=== PATIENT | male | born 1955 | race Caucasian/White ===

== ENCOUNTER 2016-12-19 21:27 | Inpatient (IN) | payer OTHER ==
[~2016-12-19] VITALS: Ht 182.9 cm; Wt 60.2 kg
[2016-12-19] MEDS ORDERED: MONT1TAB5 PO (21:38)
[2016-12-19] MEDS ORDERED: IPRASOL4 INH (21:38)
[2016-12-19] MEDS ORDERED: SPIR25TA PO (21:38)
[2016-12-19] MEDS ORDERED: CLR10 PO (21:38)
[2016-12-19] MEDS ORDERED: ADVIN50050 PO (21:38)
[2016-12-19] MEDS ORDERED: VNTHFA/IN INH (21:38)
[2016-12-19] MEDS ORDERED: METHYLPREDNISOLONE 125 MG VIAL IV STA (21:41)
[2016-12-19] MEDS ORDERED: SODIUM CHLORIDE 0.9% 1000ML 1,000 ML IV STA ×2 (21:41)
[2016-12-19] MEDS ORDERED: METHYLPREDNISOLONE 125 MG VIAL ONE (21:42)
[2016-12-19] MEDS ORDERED: ALBUT/IPRATROP 3MG/0.5MG NEB 3 ML VIAL INH ONE (21:45)
[2016-12-19 22:09] LABS: BASO % 0.1 %; BASO ABS # 0.01 K/uL (0-0.2); COMPLETE YES; EOS % 0.6 %; HEMATOCRIT 45.2 % (42-52); IG% 0.3 %; LYMPH % 5.6 %; LYMPH ABS # 0.83 K/uL (1.2-3.4); MEAN CELL VOLUME 95.2 fL (80-100); MEAN CORPUSCULAR HEMOGLOBIN 33.1 pg (25-34); MEAN CORPUSCULAR HGB CONC 34.7 g/dl (32-36); MEAN PLATELET VOLUME 9.3 fL (7.4-10.4); MONO % 5.6 %; NEUT % 87.8 %; PLATELET COUNT 160 K/uL (130-400); RED BLOOD COUNT 4.75 M/uL (4.7-6.1); WHITE BLOOD COUNT 14.91 K/uL (4.8-10.8)
[2016-12-19 22:18] LABS: PARTIAL THROMBOPLASTIN RATIO 1.2; PROTHROMBIN TIME (PATIENT) 10.7 SECONDS (9.0-12.0)
--- NOTE | 2016-12-19 22:24 | DIAGNOSTIC IMAGING REPORT ---
CHEST ONE VIEW PORTABLE HISTORY: 61 years-old Male Sepsis COMPARISON: None available TECHNIQUE: Portable upright AP view of the chest FINDINGS: Cardiac silhouette is within normal limits. There is no pneumothorax or large pleural effusion. There is blunting of the costophrenic angles likely secondary to scarring and hyperinflation. Reticular opacities are present within the medial apical lungs compatible with pleural-parenchymal scarring and background emphysema. There is no focal airspace consolidation or overt pulmonary edema. The bones and upper abdomen appear unremarkable. IMPRESSION: 1. No acute cardiopulmonary process. 2. Emphysema with biapical pleural-parenchymal scarring. The above report was generated using voice recognition software. It may contain grammatical, syntax or spelling errors. Electronically signed by: Jason Marcus M.D. 12/19/2016 10:22 PM Dictated Date/Time: 12/19/2016 10:21 PM
[2016-12-19 22:27] LABS: ALT/SGPT 26 U/L (12-78); BLOOD UREA NITROGEN 14 mg/dl (7-18); BUN/CREATININE RATIO 21.5 (10-20); CALCIUM 8.6 mg/dl (8.5-10.1); CARBON DIOXIDE 28 mmol/L (21-32); CHLORIDE 102 mmol/L (98-107); CREATININE 0.67 mg/dl (0.60-1.40); GLUCOSE 107 mg/dl (70-99); MAGNESIUM 1.9 mg/dl (1.8-2.4); SODIUM 136 mmol/L (136-145)
[2016-12-19 22:32] LABS: ALB/GLOB RATIO 1.1 (0.9-2); ALKALINE PHOSPHATASE 76 U/L (45-117); AST/SGOT 24 U/L (15-37)
[2016-12-19 22:57] VITALS: PULSE 121; O2SAT 98
--- NOTE | 2016-12-19 23:10 | History and Physical ---
History & Physical Date & Time of Service: Dec 19, 2016 at 23:10 . Chief Complaint: cough, shortness of breath . Primary Care Physician: [facility] . History of Present Illness Source: patient, hospital records 61 YO male, inmate [facility]. History of severe COPD and other problems noted below. Developed sinus drainage and a cough a few days ago. Cough productive of white sputum. Possible low grade temp. Started on azithromycin. Received nebulizer treatments. Progressive wheezing and dyspnea. Very SOB today with document O2 sat of 76% on RA. EMS summoned. Transferred to ED. Received O2, DuoNeb, Solu-Medrol. Feeling better by time of my assessment. . Past Medical/Surgical History Chronic Medical Problems: (1) Cirrhosis of liver Status: Chronic (2) COPD (chronic obstructive pulmonary disease) Status: Chronic (3) GERD (gastroesophageal reflux disease) Status: Chronic (4) History of hepatitis B Status: Chronic (5) Hypertension Status: Chronic (6) Tobacco abuse Status: Chronic . Family History FATHER Heart disease Kidney disease MOTHER Heart disease Diabetes mellitus BROTHER Heart disease Social History Smoking Status: Current Every Day Smoker Alcohol Use: none Allergies Coded Allergies: No Known Allergies (Unverified , 12/19/16) Home Medications Scheduled Fluticasone Prop/Salmeterol (Advair Diskus 500-50 Mcg/Dose), 1 PUFF PO DAILY Ipratropium-Albuterol (Duoneb), 1 TREATMENT INH Q4H Loratadine (Claritin), 10 MG PO DAILY Montelukast Sodium (Montelukast Sodium), 10 MG PO DAILY Spironolactone (Aldactone), 25 MG PO DAILY Scheduled PRN Albuterol Hfa (Ventolin Hfa), 2-4 PUFFS INH Q6H PRN for Shortness of Breath Review of Systems Constitutional: + fever, No weight loss Eyes: No worsening of vision, No diplopia ENT: + nasal symptoms, + sore throat Respiratory: + problem reported (as noted above in HPI) Cardiovascular: No chest pain, No edema, No palpitations Abdomen: No pain, No nausea, No vomiting, No diarrhea, No GI bleeding Musculoskeletal: + joint pain, No muscle pain Genitourinary - Male: No hematuria, No dysuria Neurologic: + problem reported (frontal headache) Endocrine: No excessive thirst, No excessive urination Hematologic / Lymphatic: + abnormal bleeding/bruising, No swollen lymph nodes Integumentary: No rash, No new/changing skin lesions Physical Exam Vital Signs Date Time Temp Pulse Resp B/P (MAP) Pulse Ox O2 Delivery O2 Flow Rate FiO2 12/19/16 22:57 121 18 98 Nasal Cannula 4.0 12/19/16 22:47 123 30 110/72 96 12/19/16 21:49 87 Room Air 12/19/16 21:49 87 Room Air 12/19/16 21:49 37.4 123 20 101/66 87 Room Air 12/19/16 21:46 126 12/19/16 21:40 97 Nasal Cannula 4.0 General Appearance: + mild distress Head: normocephalic, atraumatic Eyes: normal inspection, PERRL, EOMI, sclerae normal ENT: hearing grossly normal, pharynx normal Neck: supple, no adenopathy, thyroid normal, trachea midline Respiratory/Chest: + accessory muscle use, + wheezing (diffuse) Cardiovascular: regular rate, rhythm, no edema, no gallop, no JVD, no murmur, normal peripheral pulses, + tachycardia Abdomen/GI: normal bowel sounds, non tender, soft, no organomegaly, no pulsatile mass Extremities/Musculoskelatal: no calf tenderness, no pedal edema 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4-10.4 fL Neutrophils (%) (Auto) 87.8 % Lymphocytes (%) (Auto) 5.6 % Monocytes (%) (Auto) 5.6 % Eosinophils (%) (Auto) 0.6 % Basophils (%) (Auto) 0.1 % Neutrophils # (Auto) 13.10 1.4-6.5 K/uL Lymphocytes # (Auto) 0.83 1.2-3.4 K/uL Monocytes # (Auto) 0.84 0.11-0.59 K/uL Eosinophils # (Auto) 0.09 0-0.5 K/uL Basophils # (Auto) 0.01 0-0.2 K/uL RDW Standard Deviation 43.3 36.4-46.3 fL RDW Coefficient of Variation 12.4 11.5-14.5 % Immature Granulocyte % (Auto) 0.3 % Immature Granulocyte # (Auto) 0.04 0.00-0.02 K/uL Prothrombin Time 10.7 9.0-12.0 SECONDS Prothromb Time International Ratio 1.0 0.9-1.1 Activated Partial Thromboplast Time 32.0 21.0-31.0 SECONDS Partial Thromboplastin Ratio 1.2 Sodium Level 136 136-145 mmol/L Potassium Level 4.0 3.5-5.1 mmol/L Chloride Level 102 98-107 mmol/L Carbon Dioxide Level 28 21-32 mmol/L Anion Gap 6.0 3-11 mmol/L Blood Urea Nitrogen 14 7-18 mg/dl Creatinine 0.67 0.60-1.40 mg/dl Est Creatinine Clear Calc Drug Dose 102.8 ml/min Estimated GFR () 119.4 Estimated GFR (Non- 103.0 BUN/Creatinine Ratio 21.5 10-20 Random Glucose 107 70-99 mg/dl Calcium Level 8.6 8.5-10.1 mg/dl Magnesium Level 1.9 1.8-2.4 mg/dl Total Bilirubin 0.7 0.2-1 mg/dl Aspartate Amino Transf (AST/SGOT) 24 15-37 U/L Alanine Aminotransferase (ALT/SGPT) 26 12-78 U/L Alkaline Phosphatase 76 45-117 U/L Troponin I < 0.015 0-0.045 ng/ml Total Protein 7.3 6.4-8.2 gm/dl Albumin 3.8 3.4-5.0 gm/dl Globulin 3.5 2.5-4.0 gm/dl Albumin/Globulin Ratio 1.1 0.9-2 Bedside Lactic Acid Venous 0.68 0.90-1.70 mmol/L Bedside Troponin I < 0.030 0-0.045 ng/ml Microbiology Results 12/19/16 Blood Culture, Received Pending 12/19/16 Blood Culture, Carson Batch Pending Diagnostic Radiology Chest x-ray reviewed by the undersigned. Formal report per Radiology: CHEST ONE VIEW PORTABLE HISTORY: 61 years-old Male Sepsis COMPARISON: None available TECHNIQUE: Portable upright AP view of the chest FINDINGS: Cardiac silhouette is within normal limits. There is no pneumothorax or large pleural effusion. There is blunting of the costophrenic angles likely secondary to scarring and hyperinflation. Reticular opacities are present within the medial apical lungs compatible with pleural-parenchymal scarring and background emphysema. There is no focal airspace consolidation or overt pulmonary edema. The bones and upper abdomen appear unremarkable. IMPRESSION: 1. No acute cardiopulmonary process. 2. Emphysema with biapical pleural-parenchymal scarring. The above report was generated using voice recognition software. It may contain grammatical, syntax or spelling errors. Electronically signed by: Jason Marcus M.D. 12/19/2016 10:22 PM . EKG EKG performed at 21:[address] at 130 / minute, poor R- wave progression, NSSTTWA's. . Impression Assessment and Plan ACUTE HYPOXIC RESPIRATORY FAILURE Documented O2 sat of 76% on RA at [facility]. Tachypneic, tachycardic, using accessory muscles of respiration. Due to exacerbation of COPD. Supplemental O2 as needed. Consider BiPAP if condition worsens. EXACERBATION OF COPD No infiltrates on chest x-ray. Rx with steroids, nebs, levofloxacin. TACHYCARDIA Sinus tachycardia due to respiratory illness. HYPERTENSION Follow ant titrate Rx. CIRRHOSIS Details not available. History of alcohol use and hep B. TOBACCO USE Smoking cessation counseling. VTE PROPHYLAXIS SQ enoxaparin. RESUSCITATION STATUS Full code. DISPOSITION Admit to Telemetry Unit. Expected return to [facility]. . VTE Prophylaxis Given or contraindicated: Enoxaparin (Lovenox)SQ
[2016-12-19] MEDS ORDERED: ONDANSETRON INJ 2 MG/ML 2 ML VIAL IV PRN (23:15)
[2016-12-19] MEDS ORDERED: ACETAMINOPHEN 325 MG TAB PO PRN (23:15)
[2016-12-19 23:44] LABS: VEN BLD GAS O2 SATURATION 61.4 %; VEN BLOOD GAS BASE EXCESS 1.3 mmol/L; VENOUS BLOOD GAS PCO2 59 mmHg (38.0-50.0); VENOUS BLOOD GAS PO2 31 mmHg
[2016-12-20] VITALS (12 sets, daily range): BP systolic 99–152; BP diastolic 66–89; PULSE 90–124; TEMP 36.3–37.3; O2SAT 90–96; Ht 182.9 cm; Wt 60.2 kg
[2016-12-20] MEDS ORDERED: ALBUTEROL HFA 8 GM INHALER INH PRN (01:00)
[2016-12-20] MEDS ORDERED: LEVALBUTEROL 0.63MG/3 ML NEB INH PRN (01:00)
[2016-12-20] MEDS: LEVOFLOXACIN / D5W 750 MG in PREMIXED IN D5W 150 ML IV SCH ×2 (01:44→22:05)
--- NOTE | 2016-12-20 04:49 | EMERGENCY ROOM VISIT NOTE ---
History First contact with patient: 21:33 Chief Complaint: SHORTNESS OF BREATH Stated Complaint: SOB Nursing Triage Summary: Patient presents from [facility] with c/o SOB, chills, and productive cough for the last several days Used inhalers and duoneb prior to calling EMS History of Present Illness The patient is a 61 year old male who presents to the Emergency Room with complaints of increasing shortness of breath with productive cough for the past 3 days. Patient has COPD. The residential gave him nebulizers no improvement. He had antibiotics last week. He was a subjective fever and chills. Patient denies chest pain, abdominal pain, vomiting, diarrhea, leg pain or swelling. No history of heart disease or PEs or DVTs in the past. Patient continues to smoke. Review of Systems See HPI for pertinent positives & negatives. A total of 10 systems reviewed and were otherwise negative. Past Medical/Surgical History Medical Problems: (1) Acute respiratory failure with hypoxia COPD, hypertension, cirrhosis, emphysema, GERD, nicotine dependence Social History Smoking Status: Current Every Day Smoker Current/Historical Medications Scheduled Fluticasone Prop/Salmeterol (Advair Diskus 500-50 Mcg/Dose), 1 PUFF PO DAILY Ipratropium-Albuterol (Duoneb), 1 TREATMENT INH Q4H Loratadine (Claritin), 10 MG PO DAILY Montelukast Sodium (Montelukast Sodium), 10 MG PO DAILY Spironolactone (Aldactone), 25 MG PO DAILY Scheduled PRN Albuterol Hfa (Ventolin Hfa), 2-4 PUFFS INH Q6H PRN for Shortness of Breath Physical Exam Vital Signs Date Time Temp Pulse Resp B/P (MAP) Pulse Ox O2 Delivery O2 Flow Rate FiO2 12/19/16 22:57 121 18 98 Nasal Cannula 4.0 12/19/16 22:47 123 30 110/72 96 12/19/16 21:49 87 Room Air 12/19/16 21:49 87 Room Air 12/19/16 21:49 37.4 123 20 101/66 87 Room Air 12/19/16 21:46 126 12/19/16 21:40 97 Nasal Cannula 4.0 Physical Exam VITALS: Vitals are noted on the nurse's note and reviewed by myself. Vital signs hypoxic and tachycardic GENERAL: White male struggling to breathe unable to speak in full sentences SKIN: The skin was without rashes, erythema, edema, or bruising. There is no tenting of the skin. Capillary reflex less than 2 seconds. HEAD: Normocephalic atraumatic. EARS: External auditory canals clear, tympanic membranes pearly boo without erythema or effusion bilaterally. EYES: Pupils equal round and reactive to light and accommodation. Conjunctivae without injection, sclerae without icterus. Extraocular movements intact. NOSE: Patent, turbinates without inflammation or discharge. No sinus tenderness. MOUTH: Mucous membranes mildly dry. Pharynx without erythema or exudate. Uvula midline. Airway patent. Tongue does not deviate. NECK: Supple without nuchal rigidity. No lymphadenopathy. No thyromegaly. Cervical spine is nontender. No JVD. HEART: Regular rate and rhythm, tachycardic LUNGS: Diffuse joint and end expiratory wheezes. No dullness to percussion. No retractions or accessory muscle use. ABDOMEN: Positive bowel sounds x 4. Normal tympanic percussion. Soft, nontender, without masses or organomegaly. Mckeon sign negative. No guarding or rebound tenderness. MUSCULOSKELETAL: No muscle atrophy, erythema, or edema noted. NEURO: Patient was alert and oriented to person place and time. Normal sensation to light and sharp touch. No focal neurological deficits. Medical Decision & Procedures Laboratory Results 12/19/16 21:50 Red Blood Count 4.75, Mean Corpuscular Volume 95.2, Mean Corpuscular Hemoglobin 33.1, Mean Corpuscular Hemoglobin Concent 34.7, Mean Platelet Volume 9.3, Neutrophils (%) (Auto) 87.8, Lymphocytes (%) (Auto) 5.6, Monocytes (%) (Auto) 5.6, Eosinophils (%) (Auto) 0.6, Basophils (%) (Auto) 0.1, Neutrophils # (Auto) 13.10, Lymphocytes # (Auto) 0.83, Monocytes # (Auto) 0.84, Eosinophils # (Auto) 0.09, Basophils # (Auto) 0.01 12/19/16 21:50 Test 12/19/16 21:50 12/19/16 21:53 12/19/16 21:56 White Blood Count 14.91 K/uL (4.8-10.8) Red Blood Count 4.75 M/uL (4.7-6.1) Hemoglobin 15.7 g/dL (14.0-18.0) Hematocrit 45.2 % (42-52) Mean Corpuscular Volume 95.2 fL (80-100) Mean Corpuscular Hemoglobin 33.1 pg (25-34) Mean Corpuscular Hemoglobin Concent 34.7 g/dl (32-36) Platelet Count 160 K/uL (130-400) Mean Platelet Volume 9.3 fL (7.4-10.4) Neutrophils (%) (Auto) 87.8 % Lymphocytes (%) (Auto) 5.6 % Monocytes (%) (Auto) 5.6 % Eosinophils (%) (Auto) 0.6 % Basophils (%) (Auto) 0.1 % Neutrophils # (Auto) 13.10 K/uL (1.4-6.5) Lymphocytes # (Auto) 0.83 K/uL (1.2-3.4) Monocytes # (Auto) 0.84 K/uL (0.11-0.59) Eosinophils # (Auto) 0.09 K/uL (0-0.5) Basophils # (Auto) 0.01 K/uL (0-0.2) RDW Standard Deviation 43.3 fL (36.4-46.3) RDW Coefficient of Variation 12.4 % (11.5-14.5) Immature Granulocyte % (Auto) 0.3 % Immature Granulocyte # (Auto) 0.04 K/uL (0.00-0.02) Prothrombin Time 10.7 SECONDS (9.0-12.0) Prothromb Time International Ratio 1.0 (0.9-1.1) Activated Partial Thromboplast Time 32.0 SECONDS (21.0-31.0) Partial Thromboplastin Ratio 1.2 Anion Gap 6.0 mmol/L (3-11) Est Creatinine Clear Calc Drug Dose 102.8 ml/min Estimated GFR () 119.4 Estimated GFR (Non- 103.0 BUN/Creatinine Ratio 21.5 (10-20) Calcium Level 8.6 mg/dl (8.5-10.1) Magnesium Level 1.9 mg/dl (1.8-2.4) Total Bilirubin 0.7 mg/dl (0.2-1) Aspartate Amino Transf (AST/SGOT) 24 U/L (15-37) Alanine Aminotransferase (ALT/SGPT) 26 U/L (12-78) Alkaline Phosphatase 76 U/L (45-117) Troponin I < 0.015 ng/ml (0-0.045) Total Protein 7.3 gm/dl (6.4-8.2) Albumin 3.8 gm/dl (3.4-5.0) Globulin 3.5 gm/dl (2.5-4.0) Albumin/Globulin Ratio 1.1 (0.9-2) Bedside Lactic Acid Venous 0.68 mmol/L (0.90-1.70) Bedside Troponin I < 0.030 ng/ml (0-0.045) Medications Administered Medications (Trade) Dose Ordered Sig/Migue Route Start Time Stop Time Status Last Admin Dose Admin Sodium Chloride 1,000 ml @ 999 mls/hr Q1H1M STAT IV 12/19/16 21:41 12/19/16 22:41 DC 12/19/16 21:47 999 MLS/HR Sodium Chloride 1,000 ml @ 125 mls/hr Q8H STAT IV 12/19/16 21:41 12/20/16 05:40 12/19/16 22:47 125 MLS/HR Methylprednisolone Sodium Succinate (Solu-Medrol IV) 125 mg NOW STAT IV 12/19/16 21:41 12/19/16 21:44 DC 12/19/16 21:47 125 MG Albuterol/ Ipratropium (Duoneb) 12 ml ONE ONCE INH 12/19/16 21:45 12/19/16 21:46 DC 12/19/16 21:55 12 ML ED Course Prior records/ancillary studies reviewed. Triage Nursing notes reviewed. Additional history obtained from the family. The patient's history was concerning for respiratory difficulties. Differential diagnosis: Etiologies such as infections, reactive airway disease, pneumonia, pneumothorax , COPD, CHF, cardiac ischemia, pulmonary embolism, musculoskeletal, gastrointestinal, as well as others were entertained. Physical examination: As above. Patient is struggling to breathe. ER treatment provided: Nebulizer, slight manager clinical research, IV fluids On reassessment the patient felt better. Diagnostic interpretation by me: The electrocardiogram was normal sinus, normal intervals, right axis deviation, no acute ST-T wave changes, rate of 129. Impression sinus tachycardia interpreted by myself. The labs revealed leukocytosis. Negative lactic acid. Negative troponin Imaging studies: Chest x-ray as above. HISTORY: 61 years-old Male Sepsis COMPARISON: None available TECHNIQUE: Portable upright AP view of the chest FINDINGS: Cardiac silhouette is within normal limits. There is no pneumothorax or large pleural effusion. There is blunting of the costophrenic angles likely secondary to scarring and hyperinflation. Reticular opacities are present within the medial apical lungs compatible with pleural-parenchymal scarring and background emphysema. There is no focal airspace consolidation or overt pulmonary edema. The bones and upper abdomen appear unremarkable. IMPRESSION: 1. No acute cardiopulmonary process. 2. Emphysema with biapical pleural-parenchymal scarring. The above report was generated using voice recognition software. It may contain grammatical, syntax or spelling errors. Consultation: A consultation was placed with Dr. Stein, hospitalist. The case was discussed and diagnostics were reviewed. The patient was evaluated in the ER for further treatment. Patient states he would like everything done for him tonight. Patient status is a full code. This appears to be consistent with COPD exacerbation with hypoxemia. Patient will be evaluated by medicine for possible admission. He did have some improvement after being medicated as above. His O2 sats below. Initially he was unable to speak in full sentences but this is now improved.. By the evaluation outlined above emergent etiologies such as CHF, cardiac ischemia, pulmonary embolism, reactive airway disease, pneumonia, pneumothorax, musculoskeletal, serious bacterial infections, as well as others were deemed relatively unlikely. The pt informed about the findings as listed above. All questions were answered and pleased with the treatment. Case reviewed with my attending. Medical Decision As above Medication Reconcilliation Current Medication List: was personally reviewed by me Blood Pressure Screening Patient's blood pressure: Low blood pressure Impression Primary Impression: COPD exacerbation Additional Impression: Hypoxemia Departure Information Dispostion Being Evaluated By Hospitalist Condition FAIR Patient Instructions My [facility] Problem Qualifiers
[2016-12-20] MEDS: LEVALBUTEROL 1.25MG/0.5ML NEB INH SCH ×4 (07:22→19:11)
[2016-12-20] MEDS: IPRATROPIUM BROMIDE NEB SOLN 0.02% 2.5 ML VIAL INH SCH ×4 (07:22→19:12)
[2016-12-20] MEDS: LORATADINE 10 MG TAB PO SCH (07:48)
[2016-12-20] MEDS: ENOXAPARIN 40 MG/0.4 ML SYR SC SCH (07:49)
[2016-12-20] MEDS ORDERED: FLUTICASONE/SALMETEROL (ADVAIR) 500/50 INH 14 PUFF INH SCH (09:00)
[2016-12-20] MEDS ORDERED: SPIRONOLACTONE 25 MG TAB PO SCH (09:00)
[2016-12-20 10:10] LABS: ARTERIAL BLD GAS O2 SATURATION 94.6 % (90-95); ARTERIAL BLOOD GAS BASE EXCESS 2.2 mEq/L (-9-1.8); ARTERIAL BLOOD GAS HCO3 30 mmol/L (19-24); ARTERIAL BLOOD GAS PO2 77 mm/Hg (80-95); ARTERIAL BLOOD GAS pH 7.32 (7.35-7.45)
[2016-12-20 10:12] LABS: ALLEN TEST POS (POS); O2 ADMINISTRATION 5.5 L
[2016-12-20 11:16] LABS: BUN/CREATININE RATIO 13.7 (10-20); CALCIUM 9.3 mg/dl (8.5-10.1); CREATININE 0.76 mg/dl (0.60-1.40); POTASSIUM 5.3 mmol/L (3.5-5.1)
[2016-12-20 11:22] LABS: HEMATOCRIT 46.1 % (42-52); MEAN CELL VOLUME 95.8 fL (80-100); MEAN CORPUSCULAR HEMOGLOBIN 33.3 pg (25-34); MEAN CORPUSCULAR HGB CONC 34.7 g/dl (32-36); MEAN PLATELET VOLUME 9.1 fL (7.4-10.4); PLATELET COUNT 172 K/uL (130-400); RED BLOOD COUNT 4.81 M/uL (4.7-6.1); WHITE BLOOD COUNT 7.67 K/uL (4.8-10.8)
[2016-12-20] MEDS: METHYLPREDNISOLONE IV 40 MG in SYRINGE 0 ML IV SCH ×2 (12:00→18:31)
--- NOTE | 2016-12-20 16:20 | Progress Note ---
Medicine Progress Note Date & Time of Visit: Dec 20, 2016 at 16:15. (Esme Zuñiga, P.A.-C.) Subjective Patient is sitting up and leaning forward during exam for more ease with respiration. Continues to have a cough with productive white sputum, but states that it is the same as yesterday. Satting at 95% on 6L NC O2. Is still feeling SOB, especially when he is leaning back or lying down. States that nebulizer treatments help with wheezing. Denies any fever, chills, lightheadedness, palpitations, CP, abd pain, n/v. (Esme Zuñiga, P.A.-C.) Objective Last 8 Hrs Date Time Temp Pulse Resp B/P (MAP) Pulse Ox O2 Delivery O2 Flow Rate FiO2 12/20/16 15:16 36.7 96 24 145/88 (107) 90 Nasal Cannula 4.0 12/20/16 12:00 Nasal Cannula 4.0 12/20/16 11:17 99 18 96 Nasal Cannula 4.0 Physical Exam: General Appearance: WD/WN, mild dyspneic distress, worsened during conversation. Head: normocephalic, atraumatic Eyes: normal inspection, PERRL ENT: hearing grossly normal, pharynx normal Neck: supple, no JVD, no adenopathy Respiratory/Chest: Diffuse wheezing on auscultation. + accessory muscle use Cardiovascular: regular rate, rhythm, no murmur, normal peripheral pulses Abdomen/GI: normal bowel sounds, soft, non-tender to palpation Extremities/Musculoskelatal: normal inspection, no calf tenderness, normal capillary refill, no pedal edema Neurologic/Psych: alert & oriented x 3 Skin: normal color, warm/dry Laboratory Results: Last 24 Hours Test 12/19/16 21:50 12/19/16 21:53 12/19/16 21:56 12/19/16 23:20 White Blood Count 14.91 K/uL Red Blood Count 4.75 M/uL Hemoglobin 15.7 g/dL Hematocrit 45.2 % Mean Corpuscular Volume 95.2 fL Mean Corpuscular Hemoglobin 33.1 pg Mean Corpuscular Hemoglobin Concent 34.7 g/dl Platelet Count 160 K/uL Mean Platelet Volume 9.3 fL Neutrophils (%) (Auto) 87.8 % Lymphocytes (%) (Auto) 5.6 % Monocytes (%) (Auto) 5.6 % Eosinophils (%) (Auto) 0.6 % Basophils (%) (Auto) 0.1 % Neutrophils # (Auto) 13.10 K/uL Lymphocytes # (Auto) 0.83 K/uL Monocytes # (Auto) 0.84 K/uL Eosinophils # (Auto) 0.09 K/uL Basophils # (Auto) 0.01 K/uL RDW Standard Deviation 43.3 fL RDW Coefficient of Variation 12.4 % Immature Granulocyte % (Auto) 0.3 % Immature Granulocyte # (Auto) 0.04 K/uL Prothrombin Time 10.7 SECONDS Prothromb Time International Ratio 1.0 Activated Partial Thromboplast Time 32.0 SECONDS Partial Thromboplastin Ratio 1.2 Sodium Level 136 mmol/L Potassium Level 4.0 mmol/L Chloride Level 102 mmol/L Carbon Dioxide Level 28 mmol/L Anion Gap 6.0 mmol/L Blood Urea Nitrogen 14 mg/dl Creatinine 0.67 mg/dl Est Creatinine Clear Calc Drug Dose 102.8 ml/min Estimated GFR () 119.4 Estimated GFR (Non- 103.0 BUN/Creatinine Ratio 21.5 Random Glucose 107 mg/dl Calcium Level 8.6 mg/dl Magnesium Level 1.9 mg/dl Total Bilirubin 0.7 mg/dl Aspartate Amino Transf (AST/SGOT) 24 U/L Alanine Aminotransferase (ALT/SGPT) 26 U/L Alkaline Phosphatase 76 U/L Troponin I < 0.015 ng/ml Total Protein 7.3 gm/dl Albumin 3.8 gm/dl Globulin 3.5 gm/dl Albumin/Globulin Ratio 1.1 Bedside Lactic Acid Venous 0.68 mmol/L Bedside Troponin I < 0.030 ng/ml Venous Blood pH 7.31 Venous Blood Partial Pressure CO2 59 mmHg Venous Blood Partial Pressure O2 31 mmHg Venous Blood HCO3 29 mmol/L Venous Blood Oxygen Saturation 61.4 % Venous Blood Base Excess 1.3 mmol/L Test 12/20/16 09:33 12/20/16 09:52 White Blood Count 7.67 K/uL Red Blood Count 4.81 M/uL Hemoglobin 16.0 g/dL Hematocrit 46.1 % Mean Corpuscular Volume 95.8 fL Mean Corpuscular Hemoglobin 33.3 pg Mean Corpuscular Hemoglobin Concent 34.7 g/dl RDW Standard Deviation 43.8 fL RDW Coefficient of Variation 12.4 % Platelet Count 172 K/uL Mean Platelet Volume 9.1 fL D-Dimer 320 ug/L FEU Sodium Level 137 mmol/L Potassium Level 5.3 mmol/L Chloride Level 102 mmol/L Carbon Dioxide Level 33 mmol/L Anion Gap 2.0 mmol/L Blood Urea Nitrogen 10 mg/dl Creatinine 0.76 mg/dl Est Creatinine Clear Calc Drug Dose 88.9 ml/min Estimated GFR () 113.3 Estimated GFR (Non- 97.8 BUN/Creatinine Ratio 13.7 Random Glucose 131 mg/dl Calcium Level 9.3 mg/dl Arterial Blood pH 7.32 Arterial Blood Partial Pressure CO2 60 mmHg Arterial Blood Partial Pressure O2 77 mm/Hg Arterial Blood HCO3 30 mmol/L Arterial Blood Oxygen Saturation 94.6 % Arterial Blood Base Excess 2.2 mEq/L Arterial Blood Gas Delivery 5.5 L [place] Test POS Date/Time Source Procedure Growth Status 12/19/16 23:20 Blood Blood Culture Pending Received 12/19/16 21:50 Blood Blood Culture Pending Received 12/20/16 00:00 Nasal MRSA DNA Surveillance Screen - Final Specimen Negative for MRSA by DNA Probe Complete (Esme Zuñiga, P.A.-C.) Assessment & Plan Patient is a 61yo M with a PMH of COPD, HTN and cirrhosis who has a COPD exacerbation causing acute hypoxic respiratory failure. Acute hypoxic respiratory failure 2/2 COPD exacerbation: -Documented O2 sat of 76% on RA at [facility]. -Tachypneic, tachycardic, using accessory muscles of respiration even on 6L of NC O2 -ABG showing primary respiratory acidosis with compensation (pH: 7.32, pco2: 60 , po2: 77, bicarb: 30) -Pulm consulted -Started on bipap -Will repeat ABG if indicated Exacerbation of COPD: -No infiltrates on chest x-ray. Normal wbc. -Continue IV steroids, neb treatments and levofloxacin -Smoking cessation counseling ordered in setting of tobacco use Tachycardia: improving -Sinus tachycardia due to respiratory illness. HTN: Follow ant titrate Rx Cirrhosis: stable -Hx of alcohol use and hep B -Patient unsure of other details DVT Ppx: lovenox Code status: FULL Dispo: Tele overnight. Expected return to [facility]. Current Inpatient Medications: Current Inpatient Medications Medications (Trade) Dose Ordered Sig/Migue Route Start Time Stop Time Status Last Admin Dose Admin Enoxaparin Sodium (Lovenox Inj) 40 mg DAILY SC 12/20/16 09:00 01/19/17 08:59 12/20/16 07:49 40 MG Acetaminophen (Tylenol Tab) 650 mg Q4H PRN PO 12/19/16 23:15 01/18/17 23:14 Ondansetron HCl (Zofran Inj) 4 mg Q6H PRN IV 12/19/16 23:15 01/18/17 23:14 Ipratropium [place] (Atrovent 0.02% 0.5MG/2.5ML Neb) 0.5 mg QIDR INH 12/20/16 08:00 01/19/17 07:59 12/20/16 15:15 0.5 MG Levalbuterol (Xopenex 1.25MG/ 0.5ML Neb) 1.25 mg QIDR INH 12/20/16 08:00 01/19/17 07:59 12/20/16 15:15 1.25 MG Levalbuterol (Xopenex 0.63 Mg/ 3 Ml Neb) 0.63 mg Q2H PRN INH 12/20/16 01:00 01/19/17 00:59 Levofloxacin 750 mg/Prmx 150 ml @ 100 mls/hr DAILY@2200 IV 12/20/16 01:00 12/27/16 00:59 12/20/16 01:44 100 MLS/HR Albuterol (Ventolin Hfa Inhaler) 2 puffs Q6H PRN INH 12/20/16 01:00 01/19/17 00:59 Salmeterol Xinafoate/ Fluticasone (Advair Diskus 500/50 Inh) 1 puff DAILY INH 12/20/16 09:00 01/19/17 08:59 12/20/16 07:48 1 PUFF Loratadine (Claritin Tab) 10 mg DAILY PO 12/20/16 09:00 01/19/17 08:59 12/20/16 07:48 10 MG Spironolactone (Aldactone Tab) 25 mg DAILY PO 12/20/16 09:00 01/19/17 08:59 12/20/16 07:49 25 MG Methylprednisolone Sodium Succinate 40 mg/Syringe 0.64 ml @ 1.5 mls/min Q8H IV 12/20/16 10:00 01/19/17 09:14 12/20/16 12:00 1.5 MLS/MIN (Esme Zuñiga ., P.A.-C.) ATTENDING ADDENDUM care coordinated with ANDRES Zuñiga please refer to her notes for full details, I agree with her notes patient seen and examined, records reviewed by myself as well on exam, patient seen resting in bed, states he feels improved compared to admission has dry cough no other symptoms VS noted and reviewed oriented x 3 , not in distress, speaks in sentences with no effort nor accessory muscle use normal rate, regular rhythm, no murmurs diminished breath sounds, occasional wheeze b/l non distended, soft, nontender no bipedal edema, erythema, warmth no neuro deficits Hg 16 Crea 0.76 ASSESSMENT/PLAN> COPD EXACERBATION SECONDARY TO ACUTE BRONCHITIS continue Solumedrol, Nebs, Levaquin other diagnoses and plan of care as per ANDRES Zuñiga's notes Tomas Rivera MD (Tomas Rivera MD)
--- NOTE | 2016-12-20 16:36 | Pulmonary Consultation ---
History General Date of Service: Dec 20, 2016. Stated Complaint: Acute Respiratory Failure With Hypoxia HPI The patient is a 61 year old male who presents to [facility] with complaints of Acute Respiratory Failure With Hypoxia. The patient's primary care provider is Shayne SHARMA. CC: SOB HPI: The patient is a 61y/o male inmate at [facility] facility admitted for progressive SOB. The patient has been experiencing sinus drainage, productive cough (white) with subjective fevers over the last 3 days. He was started on Azithromycin and given nebulizer treatments but had progression of his SOB. He noted acute progression of his shortness of breath on the day of his admission with documented SaO2 of 76%. EMS was then contacted and they noted the patient to have vitals of: pulse 130, 147/70, SaO2: 95% (4L). Patient has greater than 100 pack year history of smoking continues at this time. Patient notes he was clinically diagnosed for COPD he has never had formal pulmonary function studies. This diagnosis was made 10 years prior. Patient denies chest pain, abdominal pain, vomiting, diarrhea, leg pain or swelling. No history of heart disease or PEs or DVTs in the past. Patient continues to smoke. Work-Up EKG: sinus tachycardia rate 129, with right axis deviation WBC: [id number] (Neutro#: 13.10H) PLT: [id number] VBG (12/19/16) 7.31/59 corrected to 7.35/49 ABG (12/20/16) 7.32/60/77/30 (5.5L) CO2: 28 BUN/Cr: 14/0.67 CXR: no acute infiltrative process, emphysema Treatment: 1) Solu-Medrol 40mg Q8 2) Lovenox 40mg SC 3) Advair 500/50 1 puff daily 4) Xopenex/Atrovent Nebs QID 5) Levofloxacin 750mg QD 6) Ventolin HFA Q2 prn Historian: patient, EMS Review of Systems Constitutional: reports: weakness Eyes: reports: no symptoms ENT: reports: no symptoms Cardiovascular: reports: no symptoms Respiratory: reports: as stated in HPI Gastrointestinal: reports: no symptoms Genitourinary - Male: reports: no symptoms Musculoskeletal: reports: no symptoms Integumentary: reports: no symptoms Neurologic: reports: no symptoms Psychiatric: reports: no symptoms Endocrine: no symptoms Hematologic / Lymphatic: no symptoms Allergic / Immunologic: no symptoms Past Medical History Past Medical History: (1) Cirrhosis of live (2) COPD (chronic obstructive pulmonary disease) (3) GERD (gastroesophageal reflux disease) (4) History of hepatitis B (5) Hypertension (6) Tobacco abuse Past Surgical History: no surgical history Family History Diabetes mellitus MOTHER Heart disease FATHER MOTHER BROTHER Kidney disease FATHER Heart disease Kidney disease MOTHER Heart disease Diabetes mellitus BROTHER Heart disease Social History Smoking Status: Current Every Day Smoker Alcohol Use: none Hx Tobacco Use In Past Year?: Yes Smoking Status: Current Every Day Smoker Allergies Coded Allergies: No Known Allergies (Unverified , 12/19/16) Current Medications Reported Home Medications Medications Dose Route/Sig Max Daily Dose Days Date Category Duoneb (Ipratropium-Albuterol) 3 Ml Nebu 1 Treatment INH Q4H 12/19/16 Reported Ventolin Hfa (Albuterol) 200 Puffs/06186 Mcg Aers 2-4 Puffs INH Q6H PRN 12/19/16 Reported Aldactone (Spironolactone) 25 Mg Tab 25 Mg PO DAILY 12/19/16 Reported Montelukast Sodium 10 Mg Tab 10 Mg PO DAILY 12/19/16 Reported Claritin (Loratadine) 10 Mg Tab 10 Mg PO DAILY 12/19/16 Reported Advair Diskus 500-50 Mcg/Dose (Fluticasone Prop/Salmeterol) 14 Puff/1 Inhaler Aerp 1 Puff PO DAILY 12/19/16 Reported Physical Physical Exam Vital Signs: Date Time Temp Pulse Resp B/P (MAP) Pulse Ox O2 Delivery O2 Flow Rate FiO2 12/20/16 15:16 36.7 96 24 145/88 (107) 90 Nasal Cannula 4.0 12/20/16 15:15 100 28 90 BiPAP 4.0 12/20/16 15:15 100 90 4.0 12/20/16 12:00 Nasal Cannula 4.0 12/20/16 11:17 99 18 96 Nasal Cannula 4.0 12/20/16 08:00 92 Nasal Cannula 6.0 12/20/16 07:23 101 18 96 Nasal Cannula 6.0 12/20/16 07:21 36.4 101 20 99/67 (78) 96 Nasal Cannula 6.0 12/20/16 04:00 Nasal Cannula 6.0 12/20/16 03:50 36.7 110 22 101/68 (79) 93 Nasal Cannula 6.0 12/20/16 00:00 Nasal Cannula 5.0 12/20/16 00:00 37.3 124 24 130/66 93 Nasal Cannula 5.0 12/19/16 23:52 119 25 96/64 93 12/19/16 22:57 121 18 98 Nasal Cannula 4.0 12/19/16 22:47 123 30 110/72 96 12/19/16 21:49 87 Room Air 12/19/16 21:49 87 Room Air 12/19/16 21:49 37.4 123 20 101/66 87 Room Air 12/19/16 21:46 126 12/19/16 21:40 97 Nasal Cannula 4.0 General Appearance: moderate distress, cachetic Head: NORMOCEPHALIC, ATRAUMATIC Eyes: PERRLA, NO DISCHARGE, EOMI ENT: NORMAL EAR EXAM, NORMAL NASAL EXAM, NORMAL MOUTH EXAM, NORMAL THROAT EXAM , NORMAL DENTAL EXAM Neck: NORMAL RANGE OF MOTION, NO TENDERNESS, TRACHEA MIDLINE, NO STRIDOR, SUPPLE Respiratory: other (patient is tripoding has decreased breath sounds globally cannot appreciate expiratory wheezing) Cardiovasular: REGULAR RATE/RHYTHM, NORMAL S1S2, NO M/G/R, NO MURMUR Abdomen: NON TENDER, NORMAL BOWEL SOUNDS, NO REBOUND, NO MASSES, NO GUARDING, NO ORGANOMEGALY Genitourinary - Male: EXTERNAL GENITALIA NORMAL Back: NORMAL INSPECTION, NO MIDLINE TENDERNESS, NO CVA TENDERNESS Upper Extremities: NO EDEMA, NO DEFORMITY, NORMAL ROM Lower Extremities: NO EDEMA, NO DEFORMITY, NORMAL ROM Pulses: carotid (R) (2+), carotid (L) (2+), posterior tibial (R), posterior tibial (L) Neuro: ALERT, ORIENTED x 3, NORMAL MOTOR EXAM, NORMAL SENSATION, NORMAL CEREBELLAR EXAM Reflexes: biceps (R) (2+), bicpes (L) (2+), achilles (R) (2+), achilles (L) (2+ ) Babinski Testing: right (downgoing), left (downgoing) Psychiatric: NORMAL AFFECT, NO SUICIDAL IDEATION Diagnostics Labs Results Past 24 Hours Test 12/19/16 21:50 12/19/16 21:53 12/19/16 21:56 12/19/16 23:20 Range/Units White Blood Count 14.91 4.8-10.8 K/uL Red Blood Count 4.75 4.7-6.1 M/uL Hemoglobin 15.7 14.0-18.0 g/dL Hematocrit 45.2 42-52 % Mean Corpuscular Volume 95.2 80-100 fL Mean Corpuscular Hemoglobin 33.1 25-34 pg Mean Corpuscular Hemoglobin Concent 34.7 32-36 g/dl Platelet Count 160 130-400 K/uL Mean Platelet Volume 9.3 7.4-10.4 fL Neutrophils (%) (Auto) 87.8 % Lymphocytes (%) (Auto) 5.6 % Monocytes (%) (Auto) 5.6 % Eosinophils (%) (Auto) 0.6 % Basophils (%) (Auto) 0.1 % Neutrophils # (Auto) 13.10 1.4-6.5 K/uL Lymphocytes # (Auto) 0.83 1.2-3.4 K/uL Monocytes # (Auto) 0.84 0.11-0.59 K/uL Eosinophils # (Auto) 0.09 0-0.5 K/uL Basophils # (Auto) 0.01 0-0.2 K/uL RDW Standard Deviation 43.3 36.4-46.3 fL RDW Coefficient of Variation 12.4 11.5-14.5 % Immature Granulocyte % (Auto) 0.3 % Immature Granulocyte # (Auto) 0.04 0.00-0.02 K/uL Prothrombin Time 10.7 9.0-12.0 SECONDS Prothromb Time International Ratio 1.0 0.9-1.1 Activated Partial Thromboplast Time 32.0 21.0-31.0 SECONDS Partial Thromboplastin Ratio 1.2 Sodium Level 136 136-145 mmol/L Potassium Level 4.0 3.5-5.1 mmol/L Chloride Level 102 98-107 mmol/L Carbon Dioxide Level 28 21-32 mmol/L Anion Gap 6.0 3-11 mmol/L Blood Urea Nitrogen 14 7-18 mg/dl Creatinine 0.67 0.60-1.40 mg/dl Est Creatinine Clear Calc Drug Dose 102.8 ml/min Estimated GFR () 119.4 Estimated GFR (Non- 103.0 BUN/Creatinine Ratio 21.5 10-20 Random Glucose 107 70-99 mg/dl Calcium Level 8.6 8.5-10.1 mg/dl Magnesium Level 1.9 1.8-2.4 mg/dl Total Bilirubin 0.7 0.2-1 mg/dl Aspartate Amino Transf (AST/SGOT) 24 15-37 U/L Alanine Aminotransferase (ALT/SGPT) 26 12-78 U/L Alkaline Phosphatase 76 45-117 U/L Troponin I < 0.015 0-0.045 ng/ml Total Protein 7.3 6.4-8.2 gm/dl Albumin 3.8 3.4-5.0 gm/dl Globulin 3.5 2.5-4.0 gm/dl Albumin/Globulin Ratio 1.1 0.9-2 Bedside Lactic Acid Venous 0.68 0.90-1.70 mmol/L Bedside Troponin I < 0.030 0-0.045 ng/ml Venous Blood pH 7.31 7.36-7.41 Venous Blood Partial Pressure CO2 59 38.0-50.0 mmHg Venous Blood Partial Pressure O2 31 mmHg Venous Blood HCO3 29 mmol/L Venous Blood Oxygen Saturation 61.4 % Venous Blood Base Excess 1.3 mmol/L Test 12/20/16 09:33 12/20/16 09:52 Range/Units White Blood Count 7.67 4.8-10.8 K/uL Red Blood Count 4.81 4.7-6.1 M/uL Hemoglobin 16.0 14.0-18.0 g/dL Hematocrit 46.1 42-52 % Mean Corpuscular Volume 95.8 80-100 fL Mean Corpuscular Hemoglobin 33.3 25-34 pg Mean Corpuscular Hemoglobin Concent 34.7 32-36 g/dl RDW Standard Deviation 43.8 36.4-46.3 fL RDW Coefficient of Variation 12.4 11.5-14.5 % Platelet Count 172 130-400 K/uL Mean Platelet Volume 9.1 7.4-10.4 fL D-Dimer 320 0-500 ug/L FEU Sodium Level 137 136-145 mmol/L Potassium Level 5.3 3.5-5.1 mmol/L Chloride Level 102 98-107 mmol/L Carbon Dioxide Level 33 21-32 mmol/L Anion Gap 2.0 3-11 mmol/L Blood Urea Nitrogen 10 7-18 mg/dl Creatinine 0.76 0.60-1.40 mg/dl Est Creatinine Clear Calc Drug Dose 88.9 ml/min Estimated GFR () 113.3 Estimated GFR (Non- 97.8 BUN/Creatinine Ratio 13.7 10-20 Random Glucose 131 70-99 mg/dl Calcium Level 9.3 8.5-10.1 mg/dl Arterial Blood pH 7.32 7.35-7.45 Arterial Blood Partial Pressure CO2 60 35-46 mmHg Arterial Blood Partial Pressure O2 77 80-95 mm/Hg Arterial Blood HCO3 30 19-24 mmol/L Arterial Blood Oxygen Saturation 94.6 90-95 % Arterial Blood Base Excess 2.2 -9-1.8 mEq/L Arterial Blood Gas Delivery 5.5 L [place] Test POS POS Microbiology Results 12/19/16 Blood Culture, Received Pending 12/19/16 Blood Culture, Received Pending 12/20/16 MRSA DNA Surveillance Screen - Final, Complete Specimen Negative for MRSA by DNA Probe Diagnostic Radiology no acute infiltrative process, emphysema EKG sinus tachycardia rate 129, with right axis deviation Impression Assessment and Plan 61-year-old gentleman admitted with acute on chronic respiratory insufficiency: #1 Respiratory Insufficiency: Patient's clinical history, physical exam, radiographs and serum studies also suggest acute on chronic respiratory/COPD exacerbation. This time I agree with current Solu-Medrol dosing, Lovenox, DuoNeb 's and levofloxacin 750 mg daily. I will hold/discontinue the patient's Advair and Ventolin inhaler as he is unable to perform proper inhaler technique. #2 Lung Cancer Screening: The patient is stable he should undergo lung cancer screening evaluation as he is in the appropriate age range with the appropriate smoking history. #3 Infection: It doesn't appear to be a sign of pneumonia but could be bronchiectasis in our patient. This time I'll send off a pro-calcitonin continue his levofloxacin 750 mg daily and perform chest x-ray in the a.m. as he is rehydrated evaluating for possible flare at that time.
[2016-12-21] VITALS (19 sets, daily range): BP systolic 120–186; BP diastolic 74–103; PULSE 95–118; TEMP 36.3–36.6; O2SAT 83–96
[2016-12-21] MEDS: METHYLPREDNISOLONE IV 40 MG in SYRINGE 0 ML IV SCH (04:40)
[2016-12-21 06:29] LABS: HEMATOCRIT 47.4 % (42-52); MEAN CELL VOLUME 95.8 fL (80-100); MEAN CORPUSCULAR HEMOGLOBIN 32.9 pg (25-34); MEAN CORPUSCULAR HGB CONC 34.4 g/dl (32-36); MEAN PLATELET VOLUME 9.3 fL (7.4-10.4); PLATELET COUNT 192 K/uL (130-400); RED BLOOD COUNT 4.95 M/uL (4.7-6.1); WHITE BLOOD COUNT 10.66 K/uL (4.8-10.8)
[2016-12-21 07:08] LABS: BUN/CREATININE RATIO 28.5 (10-20); CALCIUM 9.5 mg/dl (8.5-10.1); CREATININE 0.63 mg/dl (0.60-1.40)
[2016-12-21] MEDS: IPRATROPIUM BROMIDE NEB SOLN 0.02% 2.5 ML VIAL INH SCH ×5 (07:39→23:44)
[2016-12-21] MEDS: LEVALBUTEROL 1.25MG/0.5ML NEB INH SCH ×5 (07:39→23:44)
--- NOTE | 2016-12-21 07:55 | Progress Note ---
Medicine Progress Note Date & Time of Visit: Dec 21, 2016 at 07:49. Subjective noted to be short of breath this morning, desaturating to 70% given nebulizer treatment, placed on bipap on exam, patient seen sitting up in bed, on bipap mild tachypnea, no effort with speaking, no accessory muscle use no chest pain, headache, nausea no other symptoms Objective Last 8 Hrs Date Time Temp Pulse Resp B/P (MAP) Pulse Ox O2 Delivery O2 Flow Rate FiO2 12/21/16 07:46 118 24 95 BiPAP/CPAP 5.0 12/21/16 07:40 114 95 5.0 12/21/16 07:39 114 22 95 BiPAP/CPAP 5.0 12/21/16 04:05 36.3 95 20 137/86 (103) 92 CPAP 12/21/16 04:00 Nasal Cannula 4.0 12/21/16 00:00 Nasal Cannula 4.0 12/20/16 23:50 36.3 104 22 132/84 (100) 94 Nasal Cannula 5.0 Physical Exam: General- oriented x 3, not in distress, speaks in sentences with very mild effort, mild tachypnea Eyes- EOMI, anicteric Neck- supple, no JVD Lungs- (+) scattered wheeze bilaterally Heart- regular rhythm; no murmur, normal rate Abdomen- normal bowel sounds, soft, nontender,non distended Extremities- no pretibial edema, no calf tenderness Neuro- alert, oriented x 3; no gross focal deficits Skin- warm & dry Laboratory Results: Last 24 Hours Test 12/20/16 09:33 12/20/16 09:52 12/20/16 17:00 12/20/16 18:25 White Blood Count 7.67 K/uL Red Blood Count 4.81 M/uL Hemoglobin 16.0 g/dL Hematocrit 46.1 % Mean Corpuscular Volume 95.8 fL Mean Corpuscular Hemoglobin 33.3 pg Mean Corpuscular Hemoglobin Concent 34.7 g/dl RDW Standard Deviation 43.8 fL RDW Coefficient of Variation 12.4 % Platelet Count 172 K/uL Mean Platelet Volume 9.1 fL D-Dimer 320 ug/L FEU Sodium Level 137 mmol/L Potassium Level 5.3 mmol/L Chloride Level 102 mmol/L Carbon Dioxide Level 33 mmol/L Anion Gap 2.0 mmol/L Blood Urea Nitrogen 10 mg/dl Creatinine 0.76 mg/dl Est Creatinine Clear Calc Drug Dose 88.9 ml/min Estimated GFR () 113.3 Estimated GFR (Non- 97.8 BUN/Creatinine Ratio 13.7 Random Glucose 131 mg/dl Calcium Level 9.3 mg/dl Arterial Blood pH 7.32 Arterial Blood Partial Pressure CO2 60 mmHg Arterial Blood Partial Pressure O2 77 mm/Hg Arterial Blood HCO3 30 mmol/L Arterial Blood Oxygen Saturation 94.6 % Arterial Blood Base Excess 2.2 mEq/L Arterial Blood Gas Delivery 5.5 L [place] Test POS Procalcitonin 0.07 ng/ml Influenza Type A Antigen Neg for Influ A Influenza Type B Antigen Neg for Influ B Test 12/21/16 05:35 White Blood Count 10.66 K/uL Red Blood Count 4.95 M/uL Hemoglobin 16.3 g/dL Hematocrit 47.4 % Mean Corpuscular Volume 95.8 fL Mean Corpuscular Hemoglobin 32.9 pg Mean Corpuscular Hemoglobin Concent 34.4 g/dl RDW Standard Deviation 42.6 fL RDW Coefficient of Variation 12.2 % Platelet Count 192 K/uL Mean Platelet Volume 9.3 fL Sodium Level 132 mmol/L Potassium Level 5.0 mmol/L Chloride Level 94 mmol/L Carbon Dioxide Level 34 mmol/L Anion Gap 4.0 mmol/L Creatinine 0.63 mg/dl Est Creatinine Clear Calc Drug Dose 107.0 ml/min Estimated GFR () 122.4 Estimated GFR (Non- 105.6 BUN/Creatinine Ratio 28.5 Random Glucose 108 mg/dl Calcium Level 9.5 mg/dl Assessment & Plan Patient is a 61yo M with a PMH of COPD, HTN and cirrhosis who has a COPD exacerbation causing acute hypoxic respiratory failure. Acute hypoxic respiratory failure 2/2 COPD exacerbation: likely Acute Bronchitis -- repeat cxr pending abg pending -- increase Solumedrol to 60mg q8h, nebs q4h continue Levaquin -- may need Lasix continue Bipap Tachycardia: improving -Sinus tachycardia due to respiratory illness. HTN: stable Cirrhosis: --stable - Hx of alcohol use and hep B - Patient unsure of other details DVT Ppx: lovenox Code status: FULL Dispo: Tele overnight[facility] Current Inpatient Medications: Current Inpatient Medications Medications (Trade) Dose Ordered Sig/Migue Route Start Time Stop Time Status Last Admin Dose Admin Enoxaparin Sodium (Lovenox Inj) 40 mg DAILY SC 12/20/16 09:00 01/19/17 08:59 12/20/16 07:49 40 MG Acetaminophen (Tylenol Tab) 650 mg Q4H PRN PO 12/19/16 23:15 01/18/17 23:14 Ondansetron HCl (Zofran Inj) 4 mg Q6H PRN IV 12/19/16 23:15 01/18/17 23:14 Ipratropium [place] (Atrovent 0.02% 0.5MG/2.5ML Neb) 0.5 mg QIDR INH 12/20/16 08:00 01/19/17 07:59 12/21/16 07:39 0.5 MG Levalbuterol (Xopenex 1.25MG/ 0.5ML Neb) 1.25 mg QIDR INH 12/20/16 08:00 01/19/17 07:59 12/21/16 07:39 1.25 MG Levalbuterol (Xopenex 0.63 Mg/ 3 Ml Neb) 0.63 mg Q2H PRN INH 12/20/16 01:00 01/19/17 00:59 Levofloxacin 750 mg/Prmx 150 ml @ 100 mls/hr DAILY@2200 IV 12/20/16 01:00 12/27/16 00:59 12/20/16 22:05 100 MLS/HR Albuterol (Ventolin Hfa Inhaler) 2 puffs Q6H PRN INH 12/20/16 01:00 01/19/17 00:59 Salmeterol Xinafoate/ Fluticasone (Advair Diskus 500/50 Inh) 1 puff DAILY INH 12/20/16 09:00 01/19/17 08:59 12/20/16 07:48 1 PUFF Loratadine (Claritin Tab) 10 mg DAILY PO 12/20/16 09:00 01/19/17 08:59 12/20/16 07:48 10 MG Methylprednisolone Sodium Succinate 40 mg/Syringe 0.64 ml @ 1.5 mls/min Q8H IV 12/20/16 10:00 01/19/17 09:14 12/21/16 04:40 1.5 MLS/MIN
--- NOTE | 2016-12-21 08:17 | DIAGNOSTIC IMAGING REPORT ---
CHEST ONE VIEW PORTABLE CLINICAL HISTORY: Bronchiectasis/pneumonia COMPARISON STUDY: Chest radiograph December 19, 2016. FINDINGS: The patient is rotated. Lung hyperinflation is noted. There is severe upper lobe predominant emphysema. No consolidation is identified. There is no evidence of pulmonary edema. Cardiomediastinal silhouette is unremarkable. IMPRESSION: 1. Severe emphysema. 2. No acute cardiopulmonary findings identified. Electronically signed by: Patel Yee M.D. 12/21/2016 8:16 AM Dictated Date/Time: 12/21/2016 8:14 AM
[2016-12-21] MEDS: ENOXAPARIN 40 MG/0.4 ML SYR SC SCH (08:35)
[2016-12-21] MEDS: METHYLPREDNISOLONE IV 60 MG in SYRINGE 0 ML IV SCH ×2 (08:35→16:09)
[2016-12-21 10:56] LABS: ARTERIAL BLD GAS O2 SATURATION 94.3 % (90-95); ARTERIAL BLOOD GAS BASE EXCESS 4.3 mEq/L (-9-1.8); ARTERIAL BLOOD GAS HCO3 34 mmol/L (19-24); ARTERIAL BLOOD GAS PO2 79 mm/Hg (80-95); ARTERIAL BLOOD GAS pH 7.27 (7.35-7.45)
[2016-12-21 11:02] LABS: ALLEN TEST POS (POS); O2 ADMINISTRATION 5L
[2016-12-21] MEDS ORDERED: LEVALBUTEROL/IPRATROPIUM NEB INH ONE (12:00)
[2016-12-21] MEDS ORDERED: IPRATROPIUM BROMIDE NEB SOLN 0.02% 2.5 ML VIAL INH ONE (12:30)
[2016-12-21] MEDS ORDERED: LEVALBUTEROL 1.25MG/0.5ML NEB INH ONE (12:30)
[2016-12-21] MEDS: LORATADINE 10 MG TAB PO SCH (13:20)
[2016-12-21] MEDS: GUAIFENESIN 600 MG TABCR PO SCH ×2 (13:21→20:58)
--- NOTE | 2016-12-21 14:10 | Pulmonology Progress Note ---
Pulmonary Progress Note Date of Service Dec 21, 2016. Attending Dr. Silverman Subjective Patient has continued severe respiratory insufficiency/increased work of breathing. Objective Patient continues to have increased work of breathing with tachypnea, tripod positioning, personally breathing, accessory muscle use and inability complete full sentences. He requires continued BiPAP treatment. He currently denies: Fever, chills, classic cardiac chest pain LABS: WBC: 11K PLT: 192K BUN/Cr: 18/0.63 Tot Pro: 7.3 ALB: 3.8 T-Bili: 0.7 AST: 24 ALT: 26 Procalcitonin: 0.07wnl ABG: (12/20/16) 7.32/60/70/30--5 L (12/21/16) 7.27/77/79/34--5 L Micro: Blood cultures: Negative to date MRSA DNA nasal swab: Negative CXR (12/21/16) compared to (12/19/16) Continue emphysema with no acute thoracic process noted VS: I/Os: Total: -1.7L 24hrs: -200cc SaO2: 92-95% FiO2: 4-5L RR: 20-27 BiPAP: 10 over 5 GEN: Orientated 3 RESP: Increased work of breathing, expiratory wheezing bilaterally/globally CARD: S1-S2 tachycardic no murmurs rubs or gallops ABD: Positive bowel sounds soft nontender Medications #1 Xopenex/Atrovent nebulizer every 4 hours #2 Mucinex 600 mg every 12 hours #3 Solu-Medrol 60 mg IV every 8 #4 Lovenox 40 mg subcutaneous daily #5 Claritin 10 mg by mouth daily #6 Xopenex nebulizer every 2 hours when necessary shortness of breath #7 levofloxacin 750 mg daily Assessment & Plan 61-year-old gentleman admitted for acute on chronic respiratory insufficiency: #1 respiratory insufficiency: There is no definitive diagnosis of COPD but the patient clinical history as well as chest radiograph suggests severe possibly end-stage COPD. The patient continues to require noninvasive mechanical ventilation at this time. ABG obtained earlier today did show increasing CO2 which was some at risk for possibly complete respiratory insufficiency/failure requiring intubation with mechanical ventilation/assist. I've spoken to the patient and he agrees to continue on BiPAP therapy is much as possible and I will increase it to 12 over 5. Suggest we continue with patient's current medical regimen but I will discontinue his Advair as well as Ventolin inhalers he is unable to perform this technique at this time. #2 lung cancer screening: With the patient is stable will perform noncontrast CT for evaluation/lung cancer screening. Data Medications: Current Inpatient Medications Medications (Trade) Dose Ordered Sig/Migue Route Start Time Stop Time Status Last Admin Dose Admin Enoxaparin Sodium (Lovenox Inj) 40 mg DAILY SC 12/20/16 09:00 01/19/17 08:59 12/21/16 08:35 40 MG Acetaminophen (Tylenol Tab) 650 mg Q4H PRN PO 12/19/16 23:15 01/18/17 23:14 Ondansetron HCl (Zofran Inj) 4 mg Q6H PRN IV 12/19/16 23:15 01/18/17 23:14 Levalbuterol (Xopenex 0.63 Mg/ 3 Ml Neb) 0.63 mg Q2H PRN INH 12/20/16 01:00 01/19/17 00:59 Levofloxacin 750 mg/Prmx 150 ml @ 100 mls/hr DAILY@2200 IV 12/20/16 01:00 12/27/16 00:59 12/20/16 22:05 100 MLS/HR Loratadine (Claritin Tab) 10 mg DAILY PO 12/20/16 09:00 01/19/17 08:59 12/20/16 07:48 10 MG Ipratropium [place] (Atrovent 0.02% 0.5MG/2.5ML Neb) 0.5 mg Q4R INH 12/21/16 12:00 01/20/17 11:59 12/21/16 11:10 0.5 MG Levalbuterol (Xopenex 1.25MG/ 0.5ML Neb) 1.25 mg Q4R INH 12/21/16 12:00 01/20/17 11:59 12/21/16 11:10 1.25 MG Methylprednisolone Sodium Succinate 60 mg/Syringe 0.96 ml @ 1.5 mls/min Q8H IV 12/21/16 08:00 01/20/17 07:59 12/21/16 08:35 1.5 MLS/MIN Guaifenesin (Mucinex Contr Rel Tab) 600 mg Q12 PO 12/21/16 09:00 01/20/17 08:59 Vital Signs: Date Time Temp Pulse Resp B/P (MAP) Pulse Ox O2 Delivery O2 Flow Rate FiO2 12/21/16 12:16 114 94 5.0 12/21/16 12:13 114 26 95 BiPAP/CPAP 5.0 12/21/16 12:10 112 26 93 BiPAP/CPAP 5.0 12/21/16 12:00 95 BiPAP 5.0 12/21/16 11:10 112 24 94 BiPAP/CPAP 5.0 12/21/16 11:10 112 94 5.0 12/21/16 10:55 36.6 108 26 131/76 (94) 93 BiPAP 12/21/16 08:00 95 BiPAP 5.0 12/21/16 07:46 118 24 95 BiPAP/CPAP 5.0 12/21/16 07:40 114 95 5.0 12/21/16 07:39 114 22 95 BiPAP/CPAP 5.0 12/21/16 07:15 36.4 108 27 186/103 (130) 93 BiPAP 12/21/16 04:05 36.3 95 20 137/86 (103) 92 CPAP 12/21/16 04:00 Nasal Cannula 4.0 12/21/16 00:00 Nasal Cannula 4.0 12/20/16 23:50 36.3 104 22 132/84 (100) 94 Nasal Cannula 5.0 12/20/16 20:27 105 92 5.0 12/20/16 20:00 Nasal Cannula 4.0 12/20/16 19:14 105 20 92 Nasal Cannula 5.0 12/20/16 19:02 36.4 90 26 152/89 (110) 94 Nasal Cannula 5.0 12/20/16 16:00 Nasal Cannula 4.0 12/20/16 15:16 36.7 96 24 145/88 (107) 90 Nasal Cannula 4.0 12/20/16 15:15 100 20 90 BiPAP/CPAP 4.0 12/20/16 15:15 100 28 90 BiPAP 4.0 12/20/16 15:15 100 90 4.0 Laboratory Results: Last 24 Hours Test 12/20/16 17:00 12/20/16 18:25 12/21/16 05:35 12/21/16 10:40 Procalcitonin 0.07 ng/ml Influenza Type A Antigen Neg for Influ A Influenza Type B Antigen Neg for Influ B White Blood Count 10.66 K/uL Red Blood Count 4.95 M/uL Hemoglobin 16.3 g/dL Hematocrit 47.4 % Mean Corpuscular Volume 95.8 fL Mean Corpuscular Hemoglobin 32.9 pg Mean Corpuscular Hemoglobin Concent 34.4 g/dl RDW Standard Deviation 42.6 fL RDW Coefficient of Variation 12.2 % Platelet Count 192 K/uL Mean Platelet Volume 9.3 fL Sodium Level 132 mmol/L Potassium Level 5.0 mmol/L Chloride Level 94 mmol/L Carbon Dioxide Level 34 mmol/L Anion Gap 4.0 mmol/L Blood Urea Nitrogen 18 mg/dl Creatinine 0.63 mg/dl Est Creatinine Clear Calc Drug Dose 107.0 ml/min Estimated GFR () 122.4 Estimated GFR (Non- 105.6 BUN/Creatinine Ratio 28.5 Random Glucose 108 mg/dl Calcium Level 9.5 mg/dl Arterial Blood pH 7.27 Arterial Blood Partial Pressure CO2 77 mmHg Arterial Blood Partial Pressure O2 79 mm/Hg Arterial Blood HCO3 34 mmol/L Arterial Blood Oxygen Saturation 94.3 % Arterial Blood Base Excess 4.3 mEq/L Arterial Blood Gas Delivery 5L [place] Test POS
[2016-12-21] MEDS: LEVOFLOXACIN / D5W 750 MG in PREMIXED IN D5W 150 ML IV SCH (20:58)
[2016-12-22] VITALS (20 sets, daily range): BP systolic 104–133; BP diastolic 69–84; PULSE 86–105; TEMP 35.7–36.7; O2SAT 86–100
[2016-12-22] MEDS: METHYLPREDNISOLONE IV 60 MG in SYRINGE 0 ML IV SCH ×4 (02:05→23:24)
[2016-12-22] MEDS: LEVALBUTEROL 1.25MG/0.5ML NEB INH SCH ×6 (03:21→22:22)
[2016-12-22] MEDS: IPRATROPIUM BROMIDE NEB SOLN 0.02% 2.5 ML VIAL INH SCH ×6 (03:21→22:22)
[2016-12-22 06:53] LABS: HEMATOCRIT 46.2 % (42-52); MEAN CELL VOLUME 96.5 fL (80-100); MEAN CORPUSCULAR HGB CONC 34.2 g/dl (32-36); MEAN PLATELET VOLUME 9.4 fL (7.4-10.4); PLATELET COUNT 165 K/uL (130-400); RED BLOOD COUNT 4.79 M/uL (4.7-6.1); WHITE BLOOD COUNT 8.66 K/uL (4.8-10.8)
[2016-12-22 07:19] LABS: CREATININE 0.65 mg/dl (0.60-1.40)
[2016-12-22] MEDS: GUAIFENESIN 600 MG TABCR PO SCH ×2 (07:55→20:37)
[2016-12-22] MEDS: LORATADINE 10 MG TAB PO SCH (07:55)
[2016-12-22] MEDS: ENOXAPARIN 40 MG/0.4 ML SYR SC SCH (07:55)
[2016-12-22 11:12] LABS: BUN/CREATININE RATIO 37.4 (10-20); CALCIUM 8.6 mg/dl (8.5-10.1); CREATININE 0.66 mg/dl (0.60-1.40); POTASSIUM 4.8 mmol/L (3.5-5.1)
--- NOTE | 2016-12-22 12:51 | Pulmonology Progress Note ---
Pulmonary Progress Note Date of Service Dec 22, 2016. Attending Dr. Silverman Subjective Patient still short of breath at rest but notes improvement over the last 24 hours Objective Patient continues U/shortness of breath at rest but notes overall improvement in his pulmonary status last 24 hours. He continues to try 5, using accessory muscles is notably tachypnea during conversation LABS: WBC: 8K PLT: 165K BUN/Cr: 25/0.66 ABG: (12/20/16) 7.32/60/70/30--5 L (12/21/16) 7.27/77/79/34--5 L Micro: Blood cultures: Negative to date MRSA DNA nasal swab: Negative CXR (12/21/16) compared to (12/19/16) Continue emphysema with no acute thoracic process noted VS: I/Os: Total: -2.1L 24hrs: -32cc SaO2: 86-99% FiO2: 5-8L RR: 20-24 BiPAP: 12/5 GEN: Orientated 3 RESP: Rhonchi and expiratory wheezing diffusely noted CARD: S1-S2 tachycardic no murmurs rubs or gallops ABD: Positive bowel sounds soft nontender Medications #1 Xopenex/Atrovent nebulizer every 4 hours #2 Mucinex 600 mg every 12 hours #3 Solu-Medrol 60 mg IV every 8 #4 Lovenox 40 mg subcutaneous daily #5 Claritin 10 mg by mouth daily #6 Xopenex nebulizer every 2 hours when necessary shortness of breath #7 levofloxacin 750 mg daily daily 3 Assessment & Plan 61-year-old gentleman admitted for acute on chronic respiratory insufficiency: #1 Respiratory Insufficiency: Patient with no pulmonary function tests to suggest severity but clinically as well as radiographically patient has most likely very severe COPD. He is currently having exacerbation still requires high doses of IV Solu-Medrol, BiPAP currently 12 over 5 and oxygen support. We' ll continue current medical regimen and monitoring. #2 Lung Cancer Screening: With the patient is stable will perform noncontrast CT for evaluation/lung cancer screening. #3 Chronic COPD: Patient patient will need to be discharged on corticosteroids/ LAMA/LABA therapies. I have thought about introducing Daliresp as he has a history consistent with chronic bronchiectasis but as he is notably cachectic I will hold off at this time. Data Medications: Current Inpatient Medications Medications (Trade) Dose Ordered Sig/Migue Route Start Time Stop Time Status Last Admin Dose Admin Enoxaparin Sodium (Lovenox Inj) 40 mg DAILY SC 12/20/16 09:00 01/19/17 08:59 12/22/16 07:55 40 MG Acetaminophen (Tylenol Tab) 650 mg Q4H PRN PO 12/19/16 23:15 01/18/17 23:14 Ondansetron HCl (Zofran Inj) 4 mg Q6H PRN IV 12/19/16 23:15 01/18/17 23:14 Levalbuterol (Xopenex 0.63 Mg/ 3 Ml Neb) 0.63 mg Q2H PRN INH 12/20/16 01:00 01/19/17 00:59 Levofloxacin 750 mg/Prmx 150 ml @ 100 mls/hr DAILY@2200 IV 12/20/16 01:00 12/27/16 00:59 12/21/16 20:58 100 MLS/HR Loratadine (Claritin Tab) 10 mg DAILY PO 12/20/16 09:00 01/19/17 08:59 12/22/16 07:55 10 MG Ipratropium [place] (Atrovent 0.02% 0.5MG/2.5ML Neb) 0.5 mg Q4R INH 12/21/16 12:00 01/20/17 11:59 12/22/16 11:18 0.5 MG Levalbuterol (Xopenex 1.25MG/ 0.5ML Neb) 1.25 mg Q4R INH 12/21/16 12:00 01/20/17 11:59 12/22/16 11:19 1.25 MG Methylprednisolone Sodium Succinate 60 mg/Syringe 0.96 ml @ 1.5 mls/min Q8H IV 12/21/16 08:00 01/20/17 07:59 12/22/16 07:55 1.5 MLS/MIN Guaifenesin (Mucinex Contr Rel Tab) 600 mg Q12 PO 12/21/16 09:00 01/20/17 08:59 12/22/16 07:55 600 MG Vital Signs: Date Time Temp Pulse Resp B/P (MAP) Pulse Ox O2 Delivery O2 Flow Rate FiO2 12/22/16 12:00 98 Mask 5.0 7/30/17 11:42 36.4 104 20 133/79 (97) 94 Oxymask 6.0 12/22/16 11:19 105 20 97 Diffusion Mask 6.0 12/22/16 08:00 99 Mask 5.0 12/22/16 07:34 36.3 105 20 122/84 (97) 95 BiPAP 12/22/16 07:20 103 24 94 BiPAP/CPAP 6.0 12/22/16 07:20 103 94 6.0 12/22/16 06:25 35.7 12/22/16 04:45 94 117/76 (90) 12/22/16 04:00 BiPAP 5.0 12/22/16 03:35 99 96 6.0 12/22/16 03:26 36.7 12/22/16 03:22 95 24 98 Diffusion Mask 8.0 12/22/16 00:37 94 20 125/80 (95) 86 12/22/16 00:00 BiPAP 5.0 12/21/16 23:44 104 24 83 BiPAP/CPAP 5.0 12/21/16 20:00 BiPAP 5.0 12/21/16 19:38 102 91 5.0 12/21/16 19:25 102 24 91 BiPAP/CPAP 5.0 12/21/16 19:11 36.4 107 26 136/103 (114) 93 BiPAP 12/21/16 16:00 96 BiPAP 5.0 12/21/16 15:29 104 24 91 BiPAP/CPAP 5.0 12/21/16 15:29 104 91 5.0 12/21/16 15:19 36.4 103 26 120/74 (89) 92 BiPAP Laboratory Results: Last 24 Hours Test 12/22/16 06:12 12/22/16 10:25 White Blood Count 8.66 K/uL Red Blood Count 4.79 M/uL Hemoglobin 15.8 g/dL Hematocrit 46.2 % Mean Corpuscular Volume 96.5 fL Mean Corpuscular Hemoglobin 33.0 pg Mean Corpuscular Hemoglobin Concent 34.2 g/dl RDW Standard Deviation 42.8 fL RDW Coefficient of Variation 12.1 % Platelet Count 165 K/uL Mean Platelet Volume 9.4 fL Creatinine 0.65 mg/dl 0.66 mg/dl Est Creatinine Clear Calc Drug Dose 103.7 ml/min 102.1 ml/min Estimated GFR () 120.8 120.1 Estimated GFR (Non- 104.3 103.6 Sodium Level 132 mmol/L Potassium Level 4.8 mmol/L Chloride Level 91 mmol/L Carbon Dioxide Level 38 mmol/L Anion Gap 3.0 mmol/L Blood Urea Nitrogen 25 mg/dl BUN/Creatinine Ratio 37.4 Random Glucose 124 mg/dl Calcium Level 8.6 mg/dl
[2016-12-22] MEDS: LEVOFLOXACIN / D5W 750 MG in PREMIXED IN D5W 150 ML IV SCH (20:37)
--- NOTE | 2016-12-22 21:38 | Progress Note ---
Medicine Progress Note Date & Time of Visit: Dec 22, 2016 at 21:35. Subjective seen resting in bed, comfortable with mask on states he feels improved compared to yesterday, less dyspnea and cough no chest pain denies other symptoms Objective Last 8 Hrs Date Time Temp Pulse Resp B/P (MAP) Pulse Ox O2 Delivery O2 Flow Rate FiO2 12/22/16 20:00 Mask 4.0 12/22/16 19:05 97 18 99 Mask 6.0 12/22/16 18:59 36.4 91 26 116/70 (85) 98 BiPAP 12/22/16 16:04 86 18 99 Mask 6.0 12/22/16 16:00 97 Mask 5.0 12/22/16 15:20 36.4 88 26 111/73 (86) 100 Oxymask 6.0 Physical Exam: General- oriented x 3, not in distress, speaks in sentences with no effort, acc muscle use Eyes- anicteric Neck- no JVD Lungs- (+) scattered wheeze bilaterally, less than yesterday Heart- regular rhythm; no murmur, normal rate Abdomen- normal bowel sounds, soft, nontender,non distended Extremities- no pretibial edema, no calf tenderness Neuro- alert, oriented x 3; no gross focal deficits Skin- warm & dry Laboratory Results: Last 24 Hours Test 12/22/16 06:12 12/22/16 10:25 White Blood Count 8.66 K/uL Red Blood Count 4.79 M/uL Hemoglobin 15.8 g/dL Hematocrit 46.2 % Mean Corpuscular Volume 96.5 fL Mean Corpuscular Hemoglobin 33.0 pg Mean Corpuscular Hemoglobin Concent 34.2 g/dl RDW Standard Deviation 42.8 fL RDW Coefficient of Variation 12.1 % Platelet Count 165 K/uL Mean Platelet Volume 9.4 fL Creatinine 0.65 mg/dl 0.66 mg/dl Est Creatinine Clear Calc Drug Dose 103.7 ml/min 102.1 ml/min Estimated GFR () 120.8 120.1 Estimated GFR (Non- 104.3 103.6 Sodium Level 132 mmol/L Potassium Level 4.8 mmol/L Chloride Level 91 mmol/L Carbon Dioxide Level 38 mmol/L Anion Gap 3.0 mmol/L Blood Urea Nitrogen 25 mg/dl BUN/Creatinine Ratio 37.4 Random Glucose 124 mg/dl Calcium Level 8.6 mg/dl Assessment & Plan Patient is a 61yo M with a PMH of COPD, HTN and cirrhosis who has a COPD exacerbation causing acute hypoxic respiratory failure. Acute hypoxic respiratory failure 2/2 COPD exacerbation: likely Acute Bronchitis -- repeat cxr: no signs of CHF -- increased Solumedrol to 60mg q8h, nebs q4h continued Levaquin -- improved compared to yesterday -- appreciate Dr. Silverman's input Tachycardia: improving -Sinus tachycardia due to respiratory illness. HTN: stable Cirrhosis: --stable Spironolactone on hold as patient's K was > 5 no signs of volume overload - Hx of alcohol use and hep B - Patient unsure of other details DVT Ppx: lovenox Code status: FULL Dispo: Tele overnight. [facility] Current Inpatient Medications: Current Inpatient Medications Medications (Trade) Dose Ordered Sig/Migue Route Start Time Stop Time Status Last Admin Dose Admin Enoxaparin Sodium (Lovenox Inj) 40 mg DAILY SC 12/20/16 09:00 01/19/17 08:59 12/22/16 07:55 40 MG Acetaminophen (Tylenol Tab) 650 mg Q4H PRN PO 12/19/16 23:15 01/18/17 23:14 Ondansetron HCl (Zofran Inj) 4 mg Q6H PRN IV 12/19/16 23:15 01/18/17 23:14 Levalbuterol (Xopenex 0.63 Mg/ 3 Ml Neb) 0.63 mg Q2H PRN INH 12/20/16 01:00 01/19/17 00:59 Levofloxacin 750 mg/Prmx 150 ml @ 100 mls/hr DAILY@2200 IV 12/20/16 01:00 12/27/16 00:59 12/22/16 20:37 100 MLS/HR Loratadine (Claritin Tab) 10 mg DAILY PO 12/20/16 09:00 01/19/17 08:59 12/22/16 07:55 10 MG Ipratropium [place] (Atrovent 0.02% 0.5MG/2.5ML Neb) 0.5 mg Q4R INH 12/21/16 12:00 01/20/17 11:59 12/22/16 19:05 0.5 MG Levalbuterol (Xopenex 1.25MG/ 0.5ML Neb) 1.25 mg Q4R INH 12/21/16 12:00 01/20/17 11:59 12/22/16 19:05 1.25 MG Methylprednisolone Sodium Succinate 60 mg/Syringe 0.96 ml @ 1.5 mls/min Q8H IV 12/21/16 08:00 01/20/17 07:59 12/22/16 15:49 1.5 MLS/MIN Guaifenesin (Mucinex Contr Rel Tab) 600 mg Q12 PO 12/21/16 09:00 01/20/17 08:59 12/22/16 20:37 600 MG
[2016-12-22] MEDS ORDERED: NICOTINE 14 MG/24 HR TDSY TD ONE (23:38)
[2016-12-23] VITALS (14 sets, daily range): BP systolic 107–139; BP diastolic 68–89; PULSE 85–105; TEMP 36.5–36.8; O2SAT 91–100
[2016-12-23] MEDS: IPRATROPIUM BROMIDE NEB SOLN 0.02% 2.5 ML VIAL INH SCH ×6 (03:36→23:22)
[2016-12-23] MEDS: LEVALBUTEROL 1.25MG/0.5ML NEB INH SCH ×6 (03:36→23:22)
[2016-12-23 07:13] LABS: BUN/CREATININE RATIO 38.7 (10-20); CALCIUM 8.9 mg/dl (8.5-10.1); CREATININE 0.53 mg/dl (0.60-1.40); POTASSIUM 5.5 mmol/L (3.5-5.1)
[2016-12-23] MEDS: METHYLPREDNISOLONE IV 60 MG in SYRINGE 0 ML IV SCH ×3 (08:47→23:49)
[2016-12-23] MEDS: LORATADINE 10 MG TAB PO SCH (08:47)
[2016-12-23] MEDS: ENOXAPARIN 40 MG/0.4 ML SYR SC SCH (08:47)
[2016-12-23] MEDS: GUAIFENESIN 600 MG TABCR PO SCH ×2 (08:47→20:43)
[2016-12-23] MEDS: NICOTINE 14 MG/24 HR TDSY TD SCH (08:47)
--- NOTE | 2016-12-23 09:23 | Progress Note ---
Medicine Progress Note Date & Time of Visit: Dec 23, 2016 at 09:23. Subjective patient seen sitting up in bedside chair not in distress, on facemask, comfortable states he continues to feel improved cough improving denies chest pain no other symptoms Objective Last 8 Hrs Date Time Temp Pulse Resp B/P (MAP) Pulse Ox O2 Delivery O2 Flow Rate FiO2 12/23/16 07:22 36.5 90 20 110/69 (83) 96 Nasal Cannula 3.0 12/23/16 07:11 100 18 100 Mask 4.0 12/23/16 04:25 85 18 112/68 (83) 97 12/23/16 04:00 Oxymask 4.0 Physical Exam: General- oriented x 3, not in distress, speaks in sentences with no effort, acc muscle use Eyes- anicteric Neck- no JVD Lungs- (+) scattered wheeze bilaterally, improved Heart- regular rhythm; no murmur, normal rate Abdomen- normal bowel sounds, soft, nontender,non distended Extremities- no pretibial edema, no calf tenderness Neuro- alert, oriented x 3; no gross focal deficits Skin- warm & dry Laboratory Results: Last 24 Hours Test 12/22/16 10:25 12/23/16 05:25 Sodium Level 132 mmol/L 132 mmol/L Potassium Level 4.8 mmol/L 5.5 mmol/L Chloride Level 91 mmol/L 92 mmol/L Carbon Dioxide Level 38 mmol/L 42 mmol/L Anion Gap 3.0 mmol/L -2.0 mmol/L Blood Urea Nitrogen 25 mg/dl 21 mg/dl Creatinine 0.66 mg/dl 0.53 mg/dl Est Creatinine Clear Calc Drug Dose 102.1 ml/min 127.1 ml/min Estimated GFR () 120.1 131.4 Estimated GFR (Non- 103.6 113.4 BUN/Creatinine Ratio 37.4 38.7 Random Glucose 124 mg/dl 115 mg/dl Calcium Level 8.6 mg/dl 8.9 mg/dl Assessment & Plan Patient is a 61yo M with a PMH of COPD, HTN and cirrhosis who has a COPD exacerbation causing acute hypoxic respiratory failure. Acute hypoxic respiratory failure 2/2 COPD exacerbation: likely Acute Bronchitis -- repeat cxr: no signs of CHF -- Solumedrol to 60mg q8h, nebs q4h Levaquin PO -- improving gradually daily continue to wean off oxygen -- appreciate Dr. Silverman's input Mild Hyperkalemia - Spironolactone held - monitoring K Tachycardia: -Sinus tachycardia due to respiratory illness. HTN: stable Cirrhosis: --stable Spironolactone on hold as patient's K was > 5 no signs of volume overload - Hx of alcohol use and hep B - Patient unsure of other details DVT Ppx: lovenox Code status: FULL Dispo: [facility] Current Inpatient Medications: Current Inpatient Medications Medications (Trade) Dose Ordered Sig/Migue Route Start Time Stop Time Status Last Admin Dose Admin Enoxaparin Sodium (Lovenox Inj) 40 mg DAILY SC 12/20/16 09:00 01/19/17 08:59 12/23/16 08:47 40 MG Acetaminophen (Tylenol Tab) 650 mg Q4H PRN PO 12/19/16 23:15 01/18/17 23:14 Ondansetron HCl (Zofran Inj) 4 mg Q6H PRN IV 12/19/16 23:15 01/18/17 23:14 Levalbuterol (Xopenex 0.63 Mg/ 3 Ml Neb) 0.63 mg Q2H PRN INH 12/20/16 01:00 01/19/17 00:59 Levofloxacin 750 mg/Prmx 150 ml @ 100 mls/hr DAILY@2200 IV 12/20/16 01:00 12/27/16 00:59 12/22/16 20:37 100 MLS/HR Loratadine (Claritin Tab) 10 mg DAILY PO 12/20/16 09:00 01/19/17 08:59 12/23/16 08:47 10 MG Ipratropium [place] (Atrovent 0.02% 0.5MG/2.5ML Neb) 0.5 mg Q4R INH 12/21/16 12:00 01/20/17 11:59 12/23/16 07:10 0.5 MG Levalbuterol (Xopenex 1.25MG/ 0.5ML Neb) 1.25 mg Q4R INH 12/21/16 12:00 01/20/17 11:59 12/23/16 07:10 1.25 MG Methylprednisolone Sodium Succinate 60 mg/Syringe 0.96 ml @ 1.5 mls/min Q8H IV 12/21/16 08:00 01/20/17 07:59 12/23/16 08:47 1.5 MLS/MIN Guaifenesin (Mucinex Contr Rel Tab) 600 mg Q12 PO 12/21/16 09:00 01/20/17 08:59 12/23/16 08:47 600 MG Nicotine (Nicoderm Cq 14MG Patch) 1 patch QAM TD 12/23/16 09:00 01/22/17 08:59 12/23/16 08:47 1 PATCH Miscellaneous (Remove Nicoderm Patch) 1 ea HS N/A 12/23/16 21:00 01/22/17 20:59
[2016-12-23 11:47] LABS: LEGIONELLA ANTIGEN NOT DETECTED (NOT DETECTED)
--- NOTE | 2016-12-23 17:25 | Pulmonology Progress Note ---
Pulmonary Progress Note Date of Service Dec 23, 2016. Attending Dr. Almeida Subjective Patient seen and examined at bedside. States that he feels fine. He is feeling much better than when he first came to the hospital. Denies any fevers , chills, chest pain. He states that he is short of breath from time to time. Does not want to use BiPAP. Objective Vital signs reviewed and listed below. At the time of my evaluation patient saturating 83 % on 3 L nasal cannula. He is using accessory muscles mildly and able to speak in few word sentences. He was switched to 4 L oxygen mask improvement to 92%. Gen.: Cachectic male CVS: S1-S2, tachycardic Lungs: Tachypnea, sporadic expiratory wheezes bilaterally Abdomen: Soft nontender, bowel sounds positive Extremities: No cyanosis, no clubbing no edema ABG: (12/20/16) 7.32/60/70/30--5 L (12/21/16) 7.27/77/79/34--5 L Micro: Blood cultures: Negative to date MRSA DNA nasal swab: Negative CXR (12/21/16) compared to (12/19/16) Continue emphysema with no acute thoracic process noted Medications #1 Xopenex/Atrovent nebulizer every 4 hours #2 Mucinex 600 mg every 12 hours #3 Solu-Medrol 60 mg IV every 8 #4 Lovenox 40 mg subcutaneous daily #5 Claritin 10 mg by mouth daily #6 Xopenex nebulizer every 2 hours when necessary shortness of breath #7 levofloxacin 750 mg daily Assessment & Plan 61-year-old gentleman admitted for acute on chronic respiratory insufficiency: #1 Acute on chronic hypercapnic respiratory failure this is most likely secondary to severe COPD. Continue with IV Solu-Medrol, taper as tolerated Continue with Xopenex and ipratropium nebulizers as well as Levaquin for COPD exacerbation Continue with oxygen supplementation to maintain SaO2 between 88-92%. Titrate as tolerated. Use BiPAP at night as tolerated Flutter valve The patient should have full PFTs as an outpatient to further evaluate severity of his disease. He should be discharged with outpatient follow-up on corticosteroids/LAMA/LABA bronchodilators. #2 Lung Cancer Screening: He has active tobacco and meets criteria for lung cancer screening. He should have repeat CT chest without contrast when stable. #3 tobacco use disorder continue with nicotine patch Data Medications: Current Inpatient Medications Medications (Trade) Dose Ordered Sig/Migue Route Start Time Stop Time Status Last Admin Dose Admin Enoxaparin Sodium (Lovenox Inj) 40 mg DAILY SC 12/20/16 09:00 01/19/17 08:59 12/23/16 08:47 40 MG Acetaminophen (Tylenol Tab) 650 mg Q4H PRN PO 12/19/16 23:15 01/18/17 23:14 Ondansetron HCl (Zofran Inj) 4 mg Q6H PRN IV 12/19/16 23:15 01/18/17 23:14 Levalbuterol (Xopenex 0.63 Mg/ 3 Ml Neb) 0.63 mg Q2H PRN INH 12/20/16 01:00 01/19/17 00:59 Loratadine (Claritin Tab) 10 mg DAILY PO 12/20/16 09:00 01/19/17 08:59 12/23/16 08:47 10 MG Ipratropium [place] (Atrovent 0.02% 0.5MG/2.5ML Neb) 0.5 mg Q4R INH 12/21/16 12:00 01/20/17 11:59 12/23/16 11:15 0.5 MG Levalbuterol (Xopenex 1.25MG/ 0.5ML Neb) 1.25 mg Q4R INH 12/21/16 12:00 01/20/17 11:59 12/23/16 11:15 1.25 MG Methylprednisolone Sodium Succinate 60 mg/Syringe 0.96 ml @ 1.5 mls/min Q8H IV 12/21/16 08:00 01/20/17 07:59 12/23/16 08:47 1.5 MLS/MIN Guaifenesin (Mucinex Contr Rel Tab) 600 mg Q12 PO 12/21/16 09:00 01/20/17 08:59 12/23/16 08:47 600 MG Nicotine (Nicoderm Cq 14MG Patch) 1 patch QAM TD 12/23/16 09:00 01/22/17 08:59 12/23/16 08:47 1 PATCH Miscellaneous (Remove Nicoderm Patch) 1 ea HS N/A 12/23/16 21:00 01/22/17 20:59 Levofloxacin (Levaquin Tab) 750 mg DAILY@2100 PO 12/23/16 21:00 12/27/16 00:59 I & O: 24-Hour Column 12/24/16 08:00 Intake Total 300 ml Output Total 400 ml Balance -100 ml Vital Signs: Date Time Temp Pulse Resp B/P (MAP) Pulse Ox O2 Delivery O2 Flow Rate FiO2 12/23/16 15:08 36.8 103 26 133/81 (98) 94 Nasal Cannula 3.0 12/23/16 14:36 103 22 99 Mask 4.0 12/23/16 12:00 Nasal Cannula 3.0 12/23/16 11:15 105 18 100 Mask 3.0 12/23/16 11:10 105 18 99 Mask 3.0 12/23/16 11:02 36.8 100 20 126/73 (90) 93 Oxymask 3.0 12/23/16 08:00 Oxymask 3.0 12/23/16 07:22 36.5 90 20 110/69 (83) 96 Nasal Cannula 3.0 12/23/16 07:11 100 18 100 Mask 4.0 12/23/16 04:25 85 18 112/68 (83) 97 12/23/16 04:00 Oxymask 4.0 12/23/16 00:24 97 Oxymask 4.0 12/22/16 23:59 Oxymask 4.0 12/22/16 23:59 36.7 94 20 104/69 (81) 86 12/22/16 22:23 97 18 BiPAP/CPAP 4.0 12/22/16 22:20 96 92 4.0 12/22/16 20:00 Mask 4.0 12/22/16 19:05 97 18 99 Mask 6.0 12/22/16 18:59 36.4 91 26 116/70 (85) 98 BiPAP Laboratory Results: Last 24 Hours Test 12/23/16 05:25 12/23/16 12:15 Sodium Level 132 mmol/L Potassium Level 5.5 mmol/L 4.9 mmol/L Chloride Level 92 mmol/L Carbon Dioxide Level 42 mmol/L Anion Gap -2.0 mmol/L Blood Urea Nitrogen 21 mg/dl Creatinine 0.53 mg/dl Est Creatinine Clear Calc Drug Dose 127.1 ml/min Estimated GFR () 131.4 Estimated GFR (Non- 113.4 BUN/Creatinine Ratio 38.7 Random Glucose 115 mg/dl Calcium Level 8.9 mg/dl
[2016-12-23] MEDS: LEVOFLOXACIN 750 MG TAB PO SCH (20:43)
[2016-12-24] VITALS (16 sets, daily range): BP systolic 118–136; BP diastolic 76–86; PULSE 82–127; TEMP 36.2–36.8; O2SAT 86–100
[2016-12-24] MEDS: LEVALBUTEROL 1.25MG/0.5ML NEB INH SCH ×6 (03:40→23:42)
[2016-12-24] MEDS: IPRATROPIUM BROMIDE NEB SOLN 0.02% 2.5 ML VIAL INH SCH ×6 (03:40→23:42)
[2016-12-24 06:17] LABS: BUN/CREATININE RATIO 31.2 (10-20); CALCIUM 8.7 mg/dl (8.5-10.1); CREATININE 0.64 mg/dl (0.60-1.40); POTASSIUM 5.2 mmol/L (3.5-5.1)
[2016-12-24] MEDS: GUAIFENESIN 600 MG TABCR PO SCH ×2 (08:50→20:45)
[2016-12-24] MEDS: LORATADINE 10 MG TAB PO SCH (08:50)
[2016-12-24] MEDS: NICOTINE 14 MG/24 HR TDSY TD SCH (08:51)
[2016-12-24] MEDS: METHYLPREDNISOLONE IV 60 MG in SYRINGE 0 ML IV SCH ×2 (08:51→16:31)
[2016-12-24] MEDS: ENOXAPARIN 40 MG/0.4 ML SYR SC SCH (08:52)
--- NOTE | 2016-12-24 09:53 | Progress Note ---
Medicine Progress Note Date & Time of Visit: Dec 24, 2016 at 09:49. Subjective seen resting in bed, wearing Bipap was not able to use Bipap continuously last night as he could not tolerate it not in distress ,speaks in sentences with no effort feels about the same as yesterday less cough no chest pain denies other symptoms Objective Last 8 Hrs Date Time Temp Pulse Resp B/P (MAP) Pulse Ox O2 Delivery O2 Flow Rate FiO2 12/24/16 07:12 92 18 98 Mask 4.0 12/24/16 07:10 36.4 89 20 128/85 (99) 98 Nasal Cannula 4.0 12/24/16 04:00 Oxymask 4.0 12/24/16 03:40 93 20 100 Mask 4.0 12/24/16 03:20 36.2 82 18 136/86 (103) 100 Oxymask 4.0 Physical Exam: General- oriented x 3, not in distress, speaks in sentences with no effort, acc muscle use Eyes- anicteric Neck- no JVD Lungs- (+) scattered wheeze at the bases, diminished breath sounds Heart- regular rhythm; no murmur, normal rate Abdomen- normal bowel sounds, soft, nontender,non distended Extremities- no pretibial edema, no calf tenderness Neuro- alert, oriented x 3; no gross focal deficits Skin- warm & dry Laboratory Results: Last 24 Hours Test 12/23/16 12:15 12/24/16 05:06 12/24/16 09:42 Potassium Level 4.9 mmol/L 5.2 mmol/L Sodium Level 135 mmol/L Chloride Level 91 mmol/L Carbon Dioxide Level 45 mmol/L Anion Gap -1.0 mmol/L Blood Urea Nitrogen 20 mg/dl Creatinine 0.64 mg/dl Est Creatinine Clear Calc Drug Dose 101.2 ml/min Estimated GFR () 121.6 Estimated GFR (Non- 104.9 BUN/Creatinine Ratio 31.2 Random Glucose 118 mg/dl Calcium Level 8.7 mg/dl Assessment & Plan Patient is a 61yo M with a PMH of COPD, HTN and cirrhosis who has a COPD exacerbation causing acute hypoxic respiratory failure. Acute hypoxic respiratory failure 2/2 COPD exacerbation: likely Acute Bronchitis -- repeat cxr: no signs of CHF -- Solumedrol 60mg q8h, nebs q4h Levaquin PO Day 5 -- serum HCO3 40s check ABG, may need to adjust Bipap settings -- appreciate Pulm SVC input Mild Hyperkalemia - Spironolactone held - monitoring K Tachycardia: -Sinus tachycardia due to respiratory illness. HTN: stable Cirrhosis: --stable Spironolactone on hold as patient's K was > 5 no signs of volume overload - Hx of alcohol use and hep B - Patient unsure of other details DVT Ppx: lovenox Code status: FULL [facility]: [facility] Current Inpatient Medications: Current Inpatient Medications Medications (Trade) Dose Ordered Sig/Migue Route Start Time Stop Time Status Last Admin Dose Admin Enoxaparin Sodium (Lovenox Inj) 40 mg DAILY SC 12/20/16 09:00 01/19/17 08:59 12/24/16 08:52 40 MG Acetaminophen (Tylenol Tab) 650 mg Q4H PRN PO 12/19/16 23:15 01/18/17 23:14 Ondansetron HCl (Zofran Inj) 4 mg Q6H PRN IV 12/19/16 23:15 01/18/17 23:14 Levalbuterol (Xopenex 0.63 Mg/ 3 Ml Neb) 0.63 mg Q2H PRN INH 12/20/16 01:00 01/19/17 00:59 Loratadine (Claritin Tab) 10 mg DAILY PO 12/20/16 09:00 01/19/17 08:59 12/24/16 08:50 10 MG Ipratropium [place] (Atrovent 0.02% 0.5MG/2.5ML Neb) 0.5 mg Q4R INH 12/21/16 12:00 01/20/17 11:59 12/24/16 07:12 0.5 MG Levalbuterol (Xopenex 1.25MG/ 0.5ML Neb) 1.25 mg Q4R INH 12/21/16 12:00 01/20/17 11:59 12/24/16 07:12 1.25 MG Methylprednisolone Sodium Succinate 60 mg/Syringe 0.96 ml @ 1.5 mls/min Q8H IV 12/21/16 08:00 01/20/17 07:59 12/24/16 08:51 1.5 MLS/MIN Guaifenesin (Mucinex Contr Rel Tab) 600 mg Q12 PO 12/21/16 09:00 01/20/17 08:59 12/24/16 08:50 600 MG Nicotine (Nicoderm Cq 14MG Patch) 1 patch QAM TD 12/23/16 09:00 01/22/17 08:59 12/24/16 08:51 1 PATCH Miscellaneous (Remove Nicoderm Patch) 1 ea HS N/A 12/23/16 21:00 01/22/17 20:59 12/23/16 20:43 1 EA Levofloxacin (Levaquin Tab) 750 mg DAILY@2100 PO 12/23/16 21:00 12/27/16 00:59 12/23/16 20:43 750 MG Pantoprazole Sodium (Protonix Tab) 40 mg QAM PO 12/25/16 09:00 01/24/17 08:59 Pantoprazole Sodium (Protonix Tab) 40 mg 1000 ONCE PO 12/24/16 10:00 12/24/16 10:01
[2016-12-24] MEDS ORDERED: PANTOprazole SOD 40 MG TAB PO ONE (10:00)
[2016-12-24 10:27] LABS: ALLEN TEST POS (POS); ARTERIAL BLD GAS O2 SATURATION 86.7 % (90-95); ARTERIAL BLOOD GAS BASE EXCESS 16.1 mEq/L (-9-1.8); ARTERIAL BLOOD GAS HCO3 45 mmol/L (19-24); ARTERIAL BLOOD GAS PO2 49 mm/Hg (80-95); ARTERIAL BLOOD GAS pH 7.42 (7.35-7.45); O2 ADMINISTRATION 4.5 CPAP
--- NOTE | 2016-12-24 15:16 | Pulmonology Progress Note ---
Pulmonary Progress Note Date of Service Dec 24, 2016. Attending Dr. Almeida Subjective Patient seen and examined. Currently on BiPAP. He complains of right ankle pain. He denies any shortness of breath, chest pain states he has decreased cough. Objective Vital signs reviewed and listed below. Vital signs MAXIMUM TEMPERATURE 36.8, BP 118/78-136/86, pulse 82-98, respiratory rate 18-20, pulse ox 91% on BiPAP. He is currently approximately 2 L negative in cumulative balance. ABG done this morning shows pH of 7.42, PCO2 of 71, PCO2 of 49, bicarbonate of 45, saturating 86% on CPAP. Gen.: Cachectic male on BiPAP, appears comfortable, with no increase of accessory muscles CVS: S1-S2, tachycardic Lungs: Tachypnea, sporadic expiratory wheezes bilaterally Abdomen: Soft nontender, bowel sounds positive Extremities: No cyanosis, no clubbing no edema ABG: (12/20/16) 7.32/60/70/30--5 L (12/21/16) 7.27/77/79/34--5 L Micro: Blood cultures: Negative to date MRSA DNA nasal swab: Negative CXR (12/21/16) compared to (12/19/16) Continue emphysema with no acute thoracic process noted Medications #1 Xopenex/Atrovent nebulizer every 4 hours #2 Mucinex 600 mg every 12 hours #3 Solu-Medrol 60 mg IV every 8 #4 Lovenox 40 mg subcutaneous daily #5 Claritin 10 mg by mouth daily #6 Xopenex nebulizer every 2 hours when necessary shortness of breath #7 levofloxacin 750 mg daily Assessment & Plan 61-year-old gentleman admitted for acute on chronic respiratory insufficiency: Acute on chronic hypercapnic hypoxemic respiratory failure this is most likely secondary to severe COPD Tobacco use disorder Patient appears to be improving clinically. He still appears to have a degree of hypercapnia, but this appears to be chronic. His pH is within normal limits and bicarbonate is compensated. I would be careful not bring his pCO2 within a normal range as this would decrease his respiratory drive. Continue with IV Solu-Medrol, taper as tolerated Continue with Xopenex and ipratropium nebulizers as well as Levaquin for COPD exacerbation Continue with oxygen supplementation to maintain SaO2 between 88-92%. Titrate as tolerated. Use BiPAP at night and as tolerated. Flutter valve If he should decompensate intubation is warranted. Continue with nicotine patch The patient should have full PFTs as an outpatient to further evaluate severity of his disease. He has active tobacco use and meets criteria for lung cancer screening. He should have repeat CT chest without contrast when stable. He should be discharged with outpatient follow-up on corticosteroids/LAMA/LABA bronchodilators. Data Medications: Current Inpatient Medications Medications (Trade) Dose Ordered Sig/Migue Route Start Time Stop Time Status Last Admin Dose Admin Enoxaparin Sodium (Lovenox Inj) 40 mg DAILY SC 12/20/16 09:00 01/19/17 08:59 12/24/16 08:52 40 MG Acetaminophen (Tylenol Tab) 650 mg Q4H PRN PO 12/19/16 23:15 01/18/17 23:14 Ondansetron HCl (Zofran Inj) 4 mg Q6H PRN IV 12/19/16 23:15 01/18/17 23:14 Levalbuterol (Xopenex 0.63 Mg/ 3 Ml Neb) 0.63 mg Q2H PRN INH 12/20/16 01:00 01/19/17 00:59 Loratadine (Claritin Tab) 10 mg DAILY PO 12/20/16 09:00 01/19/17 08:59 12/24/16 08:50 10 MG Ipratropium [place] (Atrovent 0.02% 0.5MG/2.5ML Neb) 0.5 mg Q4R INH 12/21/16 12:00 01/20/17 11:59 12/24/16 11:16 0.5 MG Levalbuterol (Xopenex 1.25MG/ 0.5ML Neb) 1.25 mg Q4R INH 12/21/16 12:00 01/20/17 11:59 12/24/16 11:16 1.25 MG Methylprednisolone Sodium Succinate 60 mg/Syringe 0.96 ml @ 1.5 mls/min Q8H IV 12/21/16 08:00 01/20/17 07:59 12/24/16 08:51 1.5 MLS/MIN Guaifenesin (Mucinex Contr Rel Tab) 600 mg Q12 PO 12/21/16 09:00 01/20/17 08:59 12/24/16 08:50 600 MG Nicotine (Nicoderm Cq 14MG Patch) 1 patch QAM TD 12/23/16 09:00 01/22/17 08:59 12/24/16 08:51 1 PATCH Miscellaneous (Remove Nicoderm Patch) 1 ea HS N/A 12/23/16 21:00 01/22/17 20:59 12/23/16 20:43 1 EA Levofloxacin (Levaquin Tab) 750 mg DAILY@2100 PO 12/23/16 21:00 12/27/16 00:59 12/23/16 20:43 750 MG Pantoprazole Sodium (Protonix Tab) 40 mg QAM PO 12/25/16 09:00 01/24/17 08:59 I & O: 24-Hour Column 12/25/16 08:00 Intake Total 50 ml Output Total 400 ml Balance -350 ml Vital Signs: Date Time Temp Pulse Resp B/P (MAP) Pulse Ox O2 Delivery O2 Flow Rate FiO2 12/24/16 12:00 90 Nasal Cannula 5.0 12/24/16 11:38 36.8 95 20 118/78 (91) 91 BiPAP 12/24/16 11:16 98 90 7.0 12/24/16 11:16 98 18 90 BiPAP/CPAP 7.0 12/24/16 08:00 91 BiPAP 7.0 12/24/16 07:12 92 18 98 Mask 4.0 12/24/16 07:10 36.4 89 20 128/85 (99) 98 Nasal Cannula 4.0 12/24/16 04:00 Oxymask 4.0 12/24/16 03:40 93 20 100 Mask 4.0 12/24/16 03:20 36.2 82 18 136/86 (103) 100 Oxymask 4.0 12/24/16 00:00 Oxymask 4.0 12/23/16 23:22 96 20 100 Mask 4.0 12/23/16 23:05 36.5 103 20 107/73 (84) 100 Oxymask 4.0 12/23/16 20:51 91 Oxymask 4.0 12/23/16 20:00 Oxymask 3.0 12/23/16 19:51 99 20 98 Mask 4.0 12/23/16 19:03 36.6 97 22 139/89 (106) 97 Oxymask 3.0 12/23/16 16:00 Oxymask 3.0 12/23/16 15:08 36.8 103 26 133/81 (98) 94 Nasal Cannula 3.0 Laboratory Results: Last 24 Hours Test 12/24/16 05:06 12/24/16 10:17 12/24/16 12:51 Sodium Level 135 mmol/L Potassium Level 5.2 mmol/L 4.4 mmol/L Chloride Level 91 mmol/L Carbon Dioxide Level 45 mmol/L Anion Gap -1.0 mmol/L Blood Urea Nitrogen 20 mg/dl Creatinine 0.64 mg/dl Est Creatinine Clear Calc Drug Dose 101.2 ml/min Estimated GFR () 121.6 Estimated GFR (Non- 104.9 BUN/Creatinine Ratio 31.2 Random Glucose 118 mg/dl Calcium Level 8.7 mg/dl Arterial Blood pH 7.42 Arterial Blood Partial Pressure CO2 71 mmHg Arterial Blood Partial Pressure O2 49 mm/Hg Arterial Blood HCO3 45 mmol/L Arterial Blood Oxygen Saturation 86.7 % Arterial Blood Base Excess 16.1 mEq/L Arterial Blood Gas Delivery 4.5 CPAP [place] Test POS
[2016-12-24] MEDS: LEVOFLOXACIN 750 MG TAB PO SCH (20:45)
[2016-12-25] VITALS (15 sets, daily range): BP systolic 109–127; BP diastolic 68–84; PULSE 78–109; TEMP 36.4–36.9; O2SAT 89–98
[2016-12-25] MEDS: METHYLPREDNISOLONE IV 60 MG in SYRINGE 0 ML IV SCH ×2 (00:45→08:03)
[2016-12-25] MEDS: LEVALBUTEROL 1.25MG/0.5ML NEB INH SCH ×6 (04:26→23:57)
[2016-12-25] MEDS: IPRATROPIUM BROMIDE NEB SOLN 0.02% 2.5 ML VIAL INH SCH ×6 (04:26→23:57)
[2016-12-25 06:41] LABS: BUN/CREATININE RATIO 48.5 (10-20); CALCIUM 8.7 mg/dl (8.5-10.1); CREATININE 0.54 mg/dl (0.60-1.40); POTASSIUM 4.5 mmol/L (3.5-5.1)
[2016-12-25] MEDS: PANTOprazole SOD 40 MG TAB PO SCH (08:03)
[2016-12-25] MEDS: LORATADINE 10 MG TAB PO SCH (08:03)
[2016-12-25] MEDS: GUAIFENESIN 600 MG TABCR PO SCH ×2 (08:03→21:12)
[2016-12-25] MEDS: NICOTINE 14 MG/24 HR TDSY TD SCH (08:04)
[2016-12-25] MEDS: ENOXAPARIN 40 MG/0.4 ML SYR SC SCH (08:04)
--- NOTE | 2016-12-25 09:31 | Progress Note ---
Internal Med Progress Note Date of Service: Dec 25, 2016. Provider Documentation: SUBJECTIVE: Seen and examined at bedside. States cough is much improved Denies chest pain SOB is about the same per patient Tolerates BiPAP only for few hours OBJECTIVE: Vital Signs-as noted below Physical Exam: General Appearance:Moderately built and nourished, no apparent distress Head: normocephalic, Atraumatic Eyes: normal inspection, EOMI, PERRL Neck: supple, Trachea midline Respiratory/Chest: Decreased breath sounds, CTA Cardiovascular: S1, S2, No murmur Abdomen/GI:Soft, Non tender, Bowel sounds present Extremities/Musculoskelatal:normal inspection, no edema Neurologic/Psych:AAOX3, grossly no focal neurological deficits Skin: normal color, warm Lab data as noted below. ASSESSMENT & PLAN: Patient is a 61yr male with a PMH of COPD, HTN and cirrhosis who has a COPD exacerbation causing acute hypoxic respiratory failure. Acute hypoxic/hypercapnic respiratory failure 2/2 COPD exacerbation: likely Acute Bronchitis CXR: no signs of CHF Will taper Solumedrol to 40mg q8h today Continue nebs q4h Levaquin PO Day 6 serum HCO3 40s likely chronic Continue BiPAP per Pulmonology recommendations Appreciate Pulmonology Input Oxygen support Needs PFTs done as outpatient Mild Hyperkalemia Resolved Continue to hold Spironolactone for now monitor potassium Tachycardia: Sinus tachycardia due to respiratory illness. Asymptomatic HTN: stable Cirrhosis: stable Spironolactone on hold as patient's K was > 5 no signs of volume overload Hx of alcohol use and hep B Patient unsure of other details Tobacco use disorder: Counselled to quit smoking Needs CT chest for screening lung cancer when stable DVT Px: lovenox Sq Code status: FULL code [facility] Vital Signs: Date Time Temp Pulse Resp B/P (MAP) Pulse Ox O2 Delivery O2 Flow Rate FiO2 12/25/16 16:00 Mask 7.0 12/25/16 15:41 91 18 96 Mask 5.0 12/25/16 15:16 36.8 95 26 119/71 (87) 95 Oxymask 6.0 12/25/16 12:45 36.8 109 20 116/68 (84) 93 Oxymask 6.0 12/25/16 12:00 Mask 7.0 12/25/16 11:28 97 18 93 Mask 6.0 12/25/16 08:00 97 Mask 7.0 12/25/16 07:16 36.4 92 20 127/84 (98) 97 BiPAP 12/25/16 07:05 100 98 15.0 12/25/16 07:05 100 18 98 BiPAP/CPAP 15.0 12/25/16 04:27 88 91 15.0 12/25/16 04:26 88 20 91 BiPAP/CPAP 15.0 12/25/16 04:03 36.4 87 18 126/81 (96) 89 BiPAP 12/25/16 04:00 BiPAP 7.0 Mask 12/25/16 00:01 BiPAP 7.0 Mask 12/25/16 00:01 36.7 78 18 109/74 (86) 96 Mask 12/24/16 23:55 91 97 7.0 12/24/16 23:42 91 20 97 Mask 7.0 12/24/16 20:00 94 Mask 7.0 12/24/16 19:05 120 20 94 Mask 7.0 12/24/16 18:55 36.7 108 26 123/76 (92) 96 Oxymask 8.0 Lab Results: Results Past 24 Hours Test 12/25/16 05:29 Range/Units Sodium Level 136 136-145 mmol/L Potassium Level 4.5 3.5-5.1 mmol/L Chloride Level 92 98-107 mmol/L Carbon Dioxide Level 42 21-32 mmol/L Anion Gap 2.0 3-11 mmol/L Blood Urea Nitrogen 26 7-18 mg/dl Creatinine 0.54 0.60-1.40 mg/dl Est Creatinine Clear Calc Drug Dose 120.0 ml/min Estimated GFR () 130.4 Estimated GFR (Non- 112.5 BUN/Creatinine Ratio 48.5 10-20 Random Glucose 121 70-99 mg/dl Calcium Level 8.7 8.5-10.1 mg/dl
--- NOTE | 2016-12-25 15:01 | Pulmonology Progress Note ---
Pulmonary Progress Note Date of Service Dec 25, 2016. Attending Dr. Almeida Subjective Patient seen and examined at bedside. He is feeling much better today. His shortness of breath has improved. He denies any fevers, chills, or chest pain. Objective Vital signs reviewed and listed below. Gen.: Cachectic male on 6 L oxygen mask, appears comfortable, with no increase of accessory muscles. Talking in full sentences. Less lethargic today. CVS: S1-S2, regular rate and rhythm Lungs: Decreased air entry bilaterally, bibasilar crackles Abdomen: Soft nontender, bowel sounds positive Extremities: No cyanosis, no clubbing no edema Assessment & Plan He is a 61-year-old gentleman admitted for acute on chronic respiratory insufficiency: Acute on chronic hypercapnic hypoxemic respiratory failure this is most likely secondary to severe COPD Tobacco use disorder Patient appears to be improving clinically. He is now on 6 L oxygen mask. Mycoplasma IgG is positive but this just represents a previous infection as IgG as IgM is within normal limits. Continue with corticosteroids, taper as tolerated. Continue with Xopenex and ipratropium nebulizers as well as Levaquin for COPD exacerbation. Complete 7 day course of antibiotics. Continue with oxygen supplementation to maintain SaO2 between 88-92%. Titrate as tolerated. Use BiPAP at night and as tolerated. Continue with Flutter valve Continue with nicotine patch The patient should have full PFTs as an outpatient to further evaluate severity of his disease. He has active tobacco use and meets criteria for lung cancer screening. He should have repeat CT chest without contrast when stable. He should be discharged with outpatient follow-up on corticosteroids/LAMA/LABA bronchodilators. Data Medications: Current Inpatient Medications Medications (Trade) Dose Ordered Sig/Migue Route Start Time Stop Time Status Last Admin Dose Admin Enoxaparin Sodium (Lovenox Inj) 40 mg DAILY SC 12/20/16 09:00 01/19/17 08:59 12/25/16 08:04 40 MG Acetaminophen (Tylenol Tab) 650 mg Q4H PRN PO 12/19/16 23:15 01/18/17 23:14 Ondansetron HCl (Zofran Inj) 4 mg Q6H PRN IV 12/19/16 23:15 01/18/17 23:14 Levalbuterol (Xopenex 0.63 Mg/ 3 Ml Neb) 0.63 mg Q2H PRN INH 12/20/16 01:00 01/19/17 00:59 Loratadine (Claritin Tab) 10 mg DAILY PO 12/20/16 09:00 01/19/17 08:59 12/25/16 08:03 10 MG Ipratropium [place] (Atrovent 0.02% 0.5MG/2.5ML Neb) 0.5 mg Q4R INH 12/21/16 12:00 01/20/17 11:59 12/25/16 11:28 0.5 MG Levalbuterol (Xopenex 1.25MG/ 0.5ML Neb) 1.25 mg Q4R INH 12/21/16 12:00 01/20/17 11:59 12/25/16 11:28 1.25 MG Guaifenesin (Mucinex Contr Rel Tab) 600 mg Q12 PO 12/21/16 09:00 01/20/17 08:59 12/25/16 08:03 600 MG Nicotine (Nicoderm Cq 14MG Patch) 1 patch QAM TD 12/23/16 09:00 01/22/17 08:59 12/25/16 08:04 1 PATCH Miscellaneous (Remove Nicoderm Patch) 1 ea HS N/A 12/23/16 21:00 01/22/17 20:59 12/24/16 20:46 1 EA Levofloxacin (Levaquin Tab) 750 mg DAILY@2100 PO 12/23/16 21:00 12/27/16 00:59 12/24/16 20:45 750 MG Pantoprazole Sodium (Protonix Tab) 40 mg QAM PO 12/25/16 09:00 01/24/17 08:59 12/25/16 08:03 40 MG Methylprednisolone Sodium Succinate 40 mg/Syringe 0.64 ml @ 1.5 mls/min Q8H IV 12/25/16 16:00 01/20/17 07:59 I & O: 24-Hour Column 12/26/16 08:00 Intake Total 800 ml Output Total 800 ml Balance 0 ml Vital Signs: Date Time Temp Pulse Resp B/P (MAP) Pulse Ox O2 Delivery O2 Flow Rate FiO2 12/25/16 12:45 36.8 109 20 116/68 (84) 93 Oxymask 6.0 12/25/16 12:00 Mask 7.0 12/25/16 11:28 97 18 93 Mask 6.0 12/25/16 08:00 97 Mask 7.0 12/25/16 07:16 36.4 92 20 127/84 (98) 97 BiPAP 12/25/16 07:05 100 98 15.0 12/25/16 07:05 100 18 98 BiPAP/CPAP 15.0 12/25/16 04:27 88 91 15.0 12/25/16 04:26 88 20 91 BiPAP/CPAP 15.0 12/25/16 04:03 36.4 87 18 126/81 (96) 89 BiPAP 12/25/16 04:00 BiPAP 7.0 Mask 12/25/16 00:01 BiPAP 7.0 Mask 12/25/16 00:01 36.7 78 18 109/74 (86) 96 Mask 12/24/16 23:55 91 97 7.0 12/24/16 23:42 91 20 97 Mask 7.0 12/24/16 20:00 94 Mask 7.0 12/24/16 19:05 120 20 94 Mask 7.0 12/24/16 18:55 36.7 108 26 123/76 (92) 96 Oxymask 8.0 12/24/16 16:00 96 Nasal Cannula 5.0 12/24/16 15:23 120 20 86 Nasal Cannula 7.0 12/24/16 15:06 36.8 127 26 128/76 (93) 86 Nasal Cannula 6.0 Laboratory Results: Last 24 Hours Test 12/25/16 05:29 Sodium Level 136 mmol/L Potassium Level 4.5 mmol/L Chloride Level 92 mmol/L Carbon Dioxide Level 42 mmol/L Anion Gap 2.0 mmol/L Blood Urea Nitrogen 26 mg/dl Creatinine 0.54 mg/dl Est Creatinine Clear Calc Drug Dose 120.0 ml/min Estimated GFR () 130.4 Estimated GFR (Non- 112.5 BUN/Creatinine Ratio 48.5 Random Glucose 121 mg/dl Calcium Level 8.7 mg/dl
[2016-12-25] MEDS: METHYLPREDNISOLONE IV 40 MG in SYRINGE 0 ML IV SCH (16:59)
[2016-12-25] MEDS: LEVOFLOXACIN 750 MG TAB PO SCH (21:12)
[2016-12-26] VITALS (12 sets, daily range): BP systolic 115–131; BP diastolic 68–80; PULSE 77–117; TEMP 36.5–36.8; O2SAT 89–97
[2016-12-26] MEDS: METHYLPREDNISOLONE IV 40 MG in SYRINGE 0 ML IV SCH ×3 (00:05→21:15)
[2016-12-26] MEDS: LEVALBUTEROL 1.25MG/0.5ML NEB INH SCH ×5 (04:10→23:35)
[2016-12-26] MEDS: IPRATROPIUM BROMIDE NEB SOLN 0.02% 2.5 ML VIAL INH SCH ×5 (04:10→23:35)
[2016-12-26 06:30] LABS: BUN/CREATININE RATIO 40.1 (10-20); CALCIUM 8.7 mg/dl (8.5-10.1); CREATININE 0.59 mg/dl (0.60-1.40); POTASSIUM 4.3 mmol/L (3.5-5.1)
[2016-12-26] MEDS: PANTOprazole SOD 40 MG TAB PO SCH (08:47)
[2016-12-26] MEDS: LORATADINE 10 MG TAB PO SCH (08:47)
[2016-12-26] MEDS: GUAIFENESIN 600 MG TABCR PO SCH ×2 (08:47→21:15)
[2016-12-26] MEDS: ENOXAPARIN 40 MG/0.4 ML SYR SC SCH (08:47)
[2016-12-26] MEDS: NICOTINE 14 MG/24 HR TDSY TD SCH (08:47)
--- NOTE | 2016-12-26 10:22 | Progress Note ---
Internal Med Progress Note Date of Service: Dec 26, 2016. Provider Documentation: SUBJECTIVE: Seen and examined at bedside. Cough and SOB continues to improve slowly Denies chest pain Tolerated BiPAP overnight No new complaints OBJECTIVE: Vital Signs-as noted below Physical Exam: General Appearance:Moderately built and nourished, no apparent distress Head: normocephalic, Atraumatic Eyes: normal inspection, EOMI, PERRL Neck: supple, Trachea midline Respiratory/Chest: Decreased breath sounds, CTA Cardiovascular: S1, S2, No murmur Abdomen/GI:Soft, Non tender, Bowel sounds present Extremities/Musculoskelatal:normal inspection, no edema Neurologic/Psych:AAOX3, grossly no focal neurological deficits Skin: normal color, warm Lab data as noted below. ASSESSMENT & PLAN: Patient is a 61yr male with a PMH of COPD, HTN and cirrhosis who has a COPD exacerbation causing acute hypoxic respiratory failure. Acute hypoxic/hypercapnic respiratory failure 2/2 COPD exacerbation: likely Acute Bronchitis CXR: no signs of CHF Continue Solumedrol 40mg q8h >>> will taper to 40mg BID Continue nebs q4h Levaquin PO Day 11/29 serum HCO3 40s (was in 30s at time of admission) Continue BiPAP per Pulmonology recommendations Appreciate Pulmonology Input Oxygen support PRN Needs PFTs done as outpatient Mild Hyperkalemia Resolved Continue to hold Spironolactone for now monitor potassium Tachycardia: Sinus tachycardia due to respiratory illness. Asymptomatic HTN: stable Cirrhosis: stable Spironolactone on hold as patient's K was > 5 no signs of volume overload Hx of alcohol use and hep B Patient unsure of other details Tobacco use disorder: Counselled to quit smoking Will plan for CT chest for screening lung cancer prior to discharge DVT Px: lovenox Sq Code status: FULL code Dispo: Expected return to [facility] when medically stable Vital Signs: Date Time Temp Pulse Resp B/P (MAP) Pulse Ox O2 Delivery O2 Flow Rate FiO2 12/26/16 08:53 36.8 102 20 130/75 (93) 93 Nasal Cannula 6.0 12/26/16 08:00 Nasal Cannula 5.0 12/26/16 07:40 117 18 95 BiPAP/CPAP 5.0 12/26/16 04:25 36.5 77 18 123/80 (94) 93 BiPAP 12/26/16 04:10 89 16 97 BiPAP/CPAP 5.0 12/26/16 04:00 BiPAP 12/26/16 00:08 36.5 86 20 115/76 (89) 91 BiPAP 12/25/16 23:59 BiPAP 12/25/16 23:30 106 96 6.0 12/25/16 23:25 103 18 94 BiPAP/CPAP 5.0 12/25/16 20:00 Mask 5.0 12/25/16 19:47 36.9 101 20 123/73 (90) 91 Mask 5.0 12/25/16 19:15 104 18 93 Mask 5.0 12/25/16 16:00 Mask 7.0 12/25/16 15:41 91 18 96 Mask 5.0 12/25/16 15:16 36.8 95 26 119/71 (87) 95 Oxymask 6.0 12/25/16 12:45 36.8 109 20 116/68 (84) 93 Oxymask 6.0 12/25/16 12:00 Mask 7.0 12/25/16 11:28 97 18 93 Mask 6.0 Lab Results: Results Past 24 Hours Test 12/26/16 05:23 Range/Units Sodium Level 135 136-145 mmol/L Potassium Level 4.3 3.5-5.1 mmol/L Chloride Level 91 98-107 mmol/L Carbon Dioxide Level 44 21-32 mmol/L Anion Gap 0.0 3-11 mmol/L Blood Urea Nitrogen 24 7-18 mg/dl Creatinine 0.59 0.60-1.40 mg/dl Est Creatinine Clear Calc Drug Dose 110.2 ml/min Estimated GFR () 125.8 Estimated GFR (Non- 108.5 BUN/Creatinine Ratio 40.1 10-20 Random Glucose 112 70-99 mg/dl Calcium Level 8.7 8.5-10.1 mg/dl
--- NOTE | 2016-12-26 15:25 | Pulmonology Progress Note ---
Pulmonary Progress Note Date of Service Dec 26, 2016. Attending Subjective Patient seen and examined. He states that he is feeling much better. Shortness of breath has improved. He denies any fever, chills, chest pain. Complains of lower extremity pain where is he cuffed to bed. Objective Vital signs reviewed and listed below. Gen.: Cachectic male on 5L , appears comfortable, with no increase of accessory muscles. Talking in full sentences. CVS: S1-S2, regular rate and rhythm Lungs: Decreased air entry bilaterally, bibasilar crackles Abdomen: Soft nontender, bowel sounds positive Extremities: No cyanosis, no clubbing no edema Assessment & Plan He is a 61-year-old gentleman admitted for acute on chronic respiratory insufficiency: Acute on chronic hypercapnic hypoxemic respiratory failure this is most likely secondary to severe COPD Tobacco use disorder Patient appears to be improving clinically. He is now on 5 L NC. Continue with corticosteroids taper Continue with Xopenex and ipratropium nebulizers as well as Levaquin for COPD exacerbation. Complete 7 day course of antibiotics. Continue with oxygen supplementation to maintain SaO2 between 88-92%. Titrate as tolerated. Use BiPAP at night and as tolerated. Continue with Flutter valve Continue with nicotine patch The patient should have full PFTs as an outpatient to further evaluate severity of his disease. He has active tobacco use and meets criteria for lung cancer screening. He should have repeat CT chest without contrast when stable. He should be discharged with outpatient follow-up on corticosteroids/LAMA/LABA bronchodilators. He will most likely need to be discharged to facility on LTOT. Two-step should be ordered prior to discharge. I will sign off case today. Please reconsult if you have any other questions or concerns. Data Medications: Current Inpatient Medications Medications (Trade) Dose Ordered Sig/Migue Route Start Time Stop Time Status Last Admin Dose Admin Enoxaparin Sodium (Lovenox Inj) 40 mg DAILY SC 12/20/16 09:00 01/19/17 08:59 12/26/16 08:47 40 MG Acetaminophen (Tylenol Tab) 650 mg Q4H PRN PO 12/19/16 23:15 01/18/17 23:14 Ondansetron HCl (Zofran Inj) 4 mg Q6H PRN IV 12/19/16 23:15 01/18/17 23:14 Levalbuterol (Xopenex 0.63 Mg/ 3 Ml Neb) 0.63 mg Q2H PRN INH 12/20/16 01:00 01/19/17 00:59 Loratadine (Claritin Tab) 10 mg DAILY PO 12/20/16 09:00 01/19/17 08:59 12/26/16 08:47 10 MG Ipratropium [place] (Atrovent 0.02% 0.5MG/2.5ML Neb) 0.5 mg Q4R INH 12/21/16 12:00 01/20/17 11:59 12/26/16 07:40 0.5 MG Levalbuterol (Xopenex 1.25MG/ 0.5ML Neb) 1.25 mg Q4R INH 12/21/16 12:00 01/20/17 11:59 12/26/16 07:40 1.25 MG Guaifenesin (Mucinex Contr Rel Tab) 600 mg Q12 PO 12/21/16 09:00 01/20/17 08:59 12/26/16 08:47 600 MG Nicotine (Nicoderm Cq 14MG Patch) 1 patch QAM TD 12/23/16 09:00 01/22/17 08:59 12/26/16 08:47 1 PATCH Miscellaneous (Remove Nicoderm Patch) 1 ea HS N/A 12/23/16 21:00 01/22/17 20:59 12/25/16 21:12 1 EA Levofloxacin (Levaquin Tab) 750 mg DAILY@2100 PO 12/23/16 21:00 12/27/16 00:59 12/25/16 21:12 750 MG Pantoprazole Sodium (Protonix Tab) 40 mg QAM PO 12/25/16 09:00 01/24/17 08:59 12/26/16 08:47 40 MG Methylprednisolone Sodium Succinate 40 mg/Syringe 0.64 ml @ 1.5 mls/min BID IV 12/26/16 21:00 01/20/17 07:59 I & O: 24-Hour Column 12/27/16 08:00 Intake Total 875 ml Output Total 1030 ml Balance -155 ml Vital Signs: Date Time Temp Pulse Resp B/P (MAP) Pulse Ox O2 Delivery O2 Flow Rate FiO2 12/26/16 12:00 Nasal Cannula 5.0 12/26/16 10:54 36.7 89 20 116/68 (84) 90 Nasal Cannula 5.0 12/26/16 08:53 36.8 102 20 130/75 (93) 93 Nasal Cannula 6.0 12/26/16 08:00 Nasal Cannula 5.0 12/26/16 07:40 117 18 95 BiPAP/CPAP 5.0 12/26/16 04:25 36.5 77 18 123/80 (94) 93 BiPAP 12/26/16 04:10 89 16 97 BiPAP/CPAP 5.0 12/26/16 04:00 BiPAP 12/26/16 00:08 36.5 86 20 115/76 (89) 91 BiPAP 12/25/16 23:59 BiPAP 12/25/16 23:30 106 96 6.0 12/25/16 23:25 103 18 94 BiPAP/CPAP 5.0 12/25/16 20:00 Mask 5.0 12/25/16 19:47 36.9 101 20 123/73 (90) 91 Mask 5.0 12/25/16 19:15 104 18 93 Mask 5.0 12/25/16 16:00 Mask 7.0 12/25/16 15:41 91 18 96 Mask 5.0 Laboratory Results: Last 24 Hours Test 12/26/16 05:23 12/26/16 14:15 12/26/16 14:30 Sodium Level 135 mmol/L Potassium Level 4.3 mmol/L Chloride Level 91 mmol/L Carbon Dioxide Level 44 mmol/L Anion Gap 0.0 mmol/L Blood Urea Nitrogen 24 mg/dl Creatinine 0.59 mg/dl Est Creatinine Clear Calc Drug Dose 110.2 ml/min Estimated GFR () 125.8 Estimated GFR (Non- 108.5 BUN/Creatinine Ratio 40.1 Random Glucose 112 mg/dl Calcium Level 8.7 mg/dl Creatine Kinase MB Ratio Creatine Kinase MB 2.9 ng/ml Troponin I < 0.015 ng/ml
[2016-12-26] MEDS ORDERED: POLYETHYLENE (MIRALAX) 17 GM PACK PO PRN (21:15)
[2016-12-26] MEDS: LEVOFLOXACIN 750 MG TAB PO SCH (21:15)
[2016-12-26] MEDS ORDERED: POLYETHYLENE (MIRALAX) 17 GM PACK PO ONE (21:30)
[2016-12-26] MEDS ORDERED: DOCUSATE SODIUM 100 MG CAP PO ONE (21:30)
[2016-12-27] VITALS (12 sets, daily range): BP systolic 117–134; BP diastolic 74–82; PULSE 61–98; TEMP 36.5–36.7; O2SAT 88–97
[2016-12-27] MEDS: LEVALBUTEROL 1.25MG/0.5ML NEB INH SCH ×5 (04:14→20:06)
[2016-12-27] MEDS: IPRATROPIUM BROMIDE NEB SOLN 0.02% 2.5 ML VIAL INH SCH ×5 (04:14→20:06)
[2016-12-27 06:43] LABS: BUN/CREATININE RATIO 36.6 (10-20); CALCIUM 8.9 mg/dl (8.5-10.1); CREATININE 0.61 mg/dl (0.60-1.40); POTASSIUM 4.3 mmol/L (3.5-5.1)
[2016-12-27] MEDS: METHYLPREDNISOLONE IV 40 MG in SYRINGE 0 ML IV SCH (07:59)
[2016-12-27] MEDS: DOCUSATE SODIUM 100 MG CAP PO SCH (07:59)
[2016-12-27] MEDS: NICOTINE 14 MG/24 HR TDSY TD SCH (07:59)
[2016-12-27] MEDS: PANTOprazole SOD 40 MG TAB PO SCH (08:00)
[2016-12-27] MEDS: LORATADINE 10 MG TAB PO SCH (08:00)
[2016-12-27] MEDS: GUAIFENESIN 600 MG TABCR PO SCH ×2 (08:00→20:30)
[2016-12-27] MEDS: ENOXAPARIN 40 MG/0.4 ML SYR SC SCH (08:00)
--- NOTE | 2016-12-27 09:16 | Progress Note ---
Internal Med Progress Note Date of Service: Dec 27, 2016. Provider Documentation: SUBJECTIVE: Seen and examined at bedside. Denies Cough, chest pain SOB much improved No new complaints OBJECTIVE: Vital Signs-as noted below Physical Exam: General Appearance:Moderately built and nourished, no apparent distress Head: normocephalic, Atraumatic Eyes: normal inspection, EOMI, PERRL Neck: supple, Trachea midline Respiratory/Chest: Decreased breath sounds, CTA Cardiovascular: S1, S2, No murmur Abdomen/GI:Soft, Non tender, Bowel sounds present Extremities/Musculoskelatal:normal inspection, no edema Neurologic/Psych:AAOX3, grossly no focal neurological deficits Skin: normal color, warm Lab data as noted below. ASSESSMENT & PLAN: Patient is a 61yr male with a PMH of COPD, HTN and cirrhosis who has a COPD exacerbation causing acute hypoxic respiratory failure. Acute hypoxic/hypercapnic respiratory failure 2/2 COPD exacerbation: likely Acute Bronchitis CXR: no signs of CHF Continue Solumedrol 40mg q8h >>> 40mg BID > 40mg daily Continue nebs q4h completed Levaquin for 7 days Continue BiPAP per Pulmonology recommendations Appreciate Pulmonology Input Oxygen support PRN, titrate oxygen to keep sats between 88-92% continue bronchodilators Check Nocturnal oximetry and 2 step Needs PFTs done as outpatient Mild Hyperkalemia Resolved held Spironolactone monitor potassium Tachycardia: Improved Sinus tachycardia due to respiratory illness. Asymptomatic HTN: stable Cirrhosis: stable Spironolactone on hold as patient's K was > 5 no signs of volume overload Hx of alcohol use and hep B Patient unsure of other details Tobacco use disorder: Counselled to quit smoking check CT chest for screening lung cancer in AM DVT Px: lovenox Sq Code status: FULL code Dispo: Expected return to [facility] when medically stable Vital Signs: Date Time Temp Pulse Resp B/P (MAP) Pulse Ox O2 Delivery O2 Flow Rate FiO2 12/27/16 08:00 Nasal Cannula 5.0 12/27/16 07:21 36.5 76 20 126/82 (97) 97 Nasal Cannula 6.0 12/27/16 07:20 84 14 91 Nasal Cannula 5.0 12/27/16 04:14 79 18 94 Nasal Cannula 5.0 12/27/16 03:47 36.6 88 22 134/82 (99) 89 Nasal Cannula 6.0 12/27/16 00:17 36.7 90 20 124/80 (95) 94 CPAP 12/26/16 23:36 82 94 6.0 12/26/16 23:15 80 16 94 BiPAP/CPAP 5.0 12/26/16 19:50 Nasal Cannula 12/26/16 19:45 82 18 94 Nasal Cannula 5.0 12/26/16 19:12 36.6 88 19 129/76 (93) 92 Nasal Cannula 5.0 12/26/16 16:00 Nasal Cannula 5.0 12/26/16 16:00 90 18 89 Nasal Cannula 5.0 12/26/16 15:27 36.8 83 28 131/79 (96) 90 Nasal Cannula 6.0 12/26/16 12:00 Nasal Cannula 5.0 12/26/16 10:54 36.7 89 20 116/68 (84) 90 Nasal Cannula 5.0 Lab Results: Results Past 24 Hours Test 12/26/16 14:15 12/26/16 14:30 12/27/16 05:36 Range/Units Creatine Kinase MB Ratio 0-3.0 Creatine Kinase MB 2.9 0.5-3.6 ng/ml Troponin I < 0.015 0-0.045 ng/ml Sodium Level 134 136-145 mmol/L Potassium Level 4.3 3.5-5.1 mmol/L Chloride Level 93 98-107 mmol/L Carbon Dioxide Level 38 21-32 mmol/L Anion Gap 3.0 3-11 mmol/L Blood Urea Nitrogen 22 7-18 mg/dl Creatinine 0.61 0.60-1.40 mg/dl Est Creatinine Clear Calc Drug Dose 106.6 ml/min Estimated GFR () 124.0 Estimated GFR (Non- 107.0 BUN/Creatinine Ratio 36.6 10-20 Random Glucose 118 70-99 mg/dl Calcium Level 8.9 8.5-10.1 mg/dl
[2016-12-27] MEDS: FLUTICASONE/SALMETEROL (ADVAIR) 500/50 INH 14 PUFF INH SCH ×2 (10:11→20:30)
[2016-12-28] VITALS (10 sets, daily range): BP systolic 100–128; BP diastolic 62–87; PULSE 79–100; TEMP 36.5–36.9; O2SAT 90–98
[2016-12-28] MEDS: IPRATROPIUM BROMIDE NEB SOLN 0.02% 2.5 ML VIAL INH SCH ×7 (03:06→23:08)
[2016-12-28] MEDS: LEVALBUTEROL 1.25MG/0.5ML NEB INH SCH ×7 (03:06→23:08)
[2016-12-28] MEDS: FLUTICASONE/SALMETEROL (ADVAIR) 500/50 INH 14 PUFF INH SCH ×2 (07:48→20:51)
[2016-12-28] MEDS: GUAIFENESIN 600 MG TABCR PO SCH ×2 (07:48→20:51)
[2016-12-28] MEDS: LORATADINE 10 MG TAB PO SCH (07:48)
[2016-12-28] MEDS: PANTOprazole SOD 40 MG TAB PO SCH (07:48)
[2016-12-28] MEDS: DOCUSATE SODIUM 100 MG CAP PO SCH (07:49)
[2016-12-28] MEDS: NICOTINE 14 MG/24 HR TDSY TD SCH (07:49)
[2016-12-28] MEDS: ENOXAPARIN 40 MG/0.4 ML SYR SC SCH (07:50)
[2016-12-28 07:52] LABS: BUN/CREATININE RATIO 34.3 (10-20); CALCIUM 8.3 mg/dl (8.5-10.1); CREATININE 0.65 mg/dl (0.60-1.40); POTASSIUM 3.7 mmol/L (3.5-5.1)
--- NOTE | 2016-12-28 08:04 | DIAGNOSTIC IMAGING REPORT ---
(CHEST) THORAX WITHOUT CLINICAL HISTORY: severe COPD BRONCHIECTASIS, PNEUMONIA. COMPARISON STUDY: Chest x-ray dated 12/21/2016 CT DOSE: 232.71 mGy.cm TECHNIQUE: CT of the thorax was performed from the thoracic inlet to the lung bases. Images are reviewed in the axial, sagittal, and coronal planes. IV contrast was not administered for this examination. A dose lowering technique was utilized adhering to the principles of ALARA. FINDINGS: Thyroid: Imaged portions of the thyroid gland are normal in appearance. Thoracic aorta: The thoracic aorta is normal in course and caliber, noting standard 3 vessel arch anatomy. Heart: The heart is normal in size and configuration, without pericardial effusion. Lungs and pleural spaces: There are no significant pleural effusions. There is severe pulmonary emphysema. There is a 12 mm pleural-based opacity within the superior segment left lower lobe, likely representing focal atelectasis. There are minor nodular left basal airspace opacities, likely infectious/inflammatory. There are areas of bilateral lower lobe mucus plugging.. Mediastinum: Mediastinal lymph nodes are the upper limits of normal in size Aracelis: There is no evidence of pathologic hilar adenopathy given the limitations of a noncontrast study Axilla: There is no evidence of pathologic axillary lymphadenopathy Upper abdomen: Partially visualized upper abdominal viscera is within normal limits. Skeletal structures: There are no lytic or blastic osseous lesions. IMPRESSION: 1. Severe pulmonary emphysema 2. No evidence of pathologic adenopathy 3. Mild nodular left lower lobe airspace opacities, likely infectious/inflammatory 4. Lower lobe mucus plugging Electronically signed by: Jose Fields M.D. 12/28/2016 8:03 AM Dictated Date/Time: 12/28/2016 7:58 AM
[2016-12-28] MEDS: METHYLPREDNISOLONE IV 40 MG in SYRINGE 0 ML IV SCH (08:41)
--- NOTE | 2016-12-28 09:50 | Progress Note ---
Internal Med Progress Note Date of Service: Dec 28, 2016. Provider Documentation: SUBJECTIVE: Seen and examined at bedside. States feeling well. Has intermittent cough Denies chest pain SOB improving No new complaints OBJECTIVE: Vital Signs-as noted below Physical Exam: General Appearance:Moderately built and nourished, no apparent distress Head: normocephalic, Atraumatic Eyes: normal inspection, EOMI, PERRL Neck: supple, Trachea midline Respiratory/Chest: Decreased breath sounds, CTA Cardiovascular: S1, S2, No murmur Abdomen/GI:Soft, Non tender, Bowel sounds present Extremities/Musculoskelatal:normal inspection, no edema Neurologic/Psych:AAOX3, grossly no focal neurological deficits Skin: normal color, warm Lab data as noted below. ASSESSMENT & PLAN: Patient is a 61yr male with a PMH of COPD, HTN and cirrhosis who has a COPD exacerbation causing acute hypoxic respiratory failure. Acute hypoxic/hypercapnic respiratory failure 2/2 COPD exacerbation: likely Acute Bronchitis CXR: no signs of CHF Continue Solumedrol 40mg q8h >>> 40mg BID > 40mg daily Switch to PO prednisone tomorrow Continue nebs q4h completed Levaquin for 7 days Continue BiPAP per Pulmonology recommendations Appreciate Pulmonology Input Oxygen support PRN, titrate oxygen to keep sats between 88-92% continue bronchodilators Nocturnal oximetry reviewed Plan for 2 step exercise prior to DC Needs PFTs done as outpatient Mild Hyperkalemia Resolved resume Spironolactone monitor potassium Tachycardia: Improved Sinus tachycardia due to respiratory illness. Asymptomatic HTN: stable Cirrhosis: stable Initially held Spironolactone secondary to hyperkalemia resume spironolactone no signs of volume overload Hx of alcohol use and hep B Patient unsure of other details Tobacco use disorder: Counselled to quit smoking CT chest: 1. Severe pulmonary emphysema 2. No evidence of pathologic adenopathy 3. Mild nodular left lower lobe airspace opacities, likely infectious/inflammatory 4. Lower lobe mucus plugging DVT Px: lovenox Sq Code status: FULL code Dispo: Expected return to [facility] when medically stable Vital Signs: Date Time Temp Pulse Resp B/P (MAP) Pulse Ox O2 Delivery O2 Flow Rate FiO2 12/28/16 08:00 Nasal Cannula 4.0 12/28/16 07:45 36.6 100 22 128/87 (101) 90 Nasal Cannula 4.0 12/28/16 04:00 Nasal Cannula 4.0 12/28/16 03:41 36.5 79 16 128/82 (97) 97 Nasal Cannula 4.0 12/28/16 00:00 Nasal Cannula 4.0 12/27/16 23:22 36.6 77 16 117/77 (90) 95 Nasal Cannula 4.0 12/27/16 20:07 90 14 93 Nasal Cannula 4.0 12/27/16 20:00 Nasal Cannula 4.0 12/27/16 19:43 36.5 94 22 118/74 (89) 92 Nasal Cannula 4.0 12/27/16 16:12 36.6 80 20 128/82 (97) 97 Nasal Cannula 4.0 12/27/16 16:00 Nasal Cannula 4.0 12/27/16 15:33 96 14 88 Nasal Cannula 4.0 12/27/16 12:00 Nasal Cannula 4.0 12/27/16 11:09 61 14 93 Nasal Cannula 4.0 12/27/16 11:05 36.5 98 26 126/75 (92) 91 Nasal Cannula 4.0 Lab Results: Results Past 24 Hours Test 12/28/16 06:47 Range/Units Sodium Level 136 136-145 mmol/L Potassium Level 3.7 3.5-5.1 mmol/L Chloride Level 92 98-107 mmol/L Carbon Dioxide Level 42 21-32 mmol/L Anion Gap 2.0 3-11 mmol/L Blood Urea Nitrogen 22 7-18 mg/dl Creatinine 0.65 0.60-1.40 mg/dl Est Creatinine Clear Calc Drug Dose 100.7 ml/min Estimated GFR () 120.8 Estimated GFR (Non- 104.3 BUN/Creatinine Ratio 34.3 10-20 Random Glucose 98 70-99 mg/dl Calcium Level 8.3 8.5-10.1 mg/dl
[2016-12-28] MEDS: MONTELUKAST SOD 10 MG TAB PO SCH (20:51)
[2016-12-29] VITALS (13 sets, daily range): BP systolic 104–120; BP diastolic 65–80; PULSE 73–98; TEMP 36.5–36.9; O2SAT 90–95
[2016-12-29] MEDS: IPRATROPIUM BROMIDE NEB SOLN 0.02% 2.5 ML VIAL INH SCH ×6 (04:26→23:06)
[2016-12-29] MEDS: LEVALBUTEROL 1.25MG/0.5ML NEB INH SCH ×6 (04:26→23:06)
[2016-12-29] MEDS: PANTOprazole SOD 40 MG TAB PO SCH (07:20)
[2016-12-29] MEDS: METHYLPREDNISOLONE IV 40 MG in SYRINGE 0 ML IV SCH (07:20)
[2016-12-29] MEDS: FLUTICASONE/SALMETEROL (ADVAIR) 500/50 INH 14 PUFF INH SCH ×2 (07:20→22:25)
[2016-12-29] MEDS: LORATADINE 10 MG TAB PO SCH (07:20)
[2016-12-29] MEDS: SPIRONOLACTONE 25 MG TAB PO SCH (07:21)
[2016-12-29] MEDS: DOCUSATE SODIUM 100 MG CAP PO SCH (07:21)
[2016-12-29] MEDS: GUAIFENESIN 600 MG TABCR PO SCH ×2 (07:21→22:26)
[2016-12-29] MEDS: ENOXAPARIN 40 MG/0.4 ML SYR SC SCH (07:22)
[2016-12-29] MEDS: NICOTINE 14 MG/24 HR TDSY TD SCH (07:22)
--- NOTE | 2016-12-29 10:47 | Progress Note ---
Internal Med Progress Note Date of Service: Dec 29, 2016. Provider Documentation: SUBJECTIVE: Seen and examined at bedside. Doing well. No new complaints Denies chest pain, SOB at rest, cough Still requiring 4L NC to maintain sats OBJECTIVE: Vital Signs-as noted below Physical Exam: General Appearance:Moderately built and nourished, no apparent distress Head: normocephalic, Atraumatic Eyes: normal inspection, EOMI, PERRL Neck: supple, Trachea midline Respiratory/Chest: Decreased breath sounds, CTA Cardiovascular: S1, S2, No murmur Abdomen/GI:Soft, Non tender, Bowel sounds present Extremities/Musculoskelatal:normal inspection, no edema Neurologic/Psych:AAOX3, grossly no focal neurological deficits Skin: normal color, warm Lab data as noted below. ASSESSMENT & PLAN: Patient is a 61yr male with a PMH of COPD, HTN and cirrhosis who has a COPD exacerbation causing acute hypoxic respiratory failure. Acute hypoxic/hypercapnic respiratory failure 2/2 COPD exacerbation: likely Acute Bronchitis CXR: no signs of CHF Continue Solumedrol 40mg q8h >>> 40mg BID > 40mg daily>>> switch to PO prednisone in AM Continue nebs q4h completed Levaquin for 7 days Continue BiPAP per Pulmonology recommendations Appreciate Pulmonology Input Oxygen support PRN, titrate oxygen to keep sats between 88-92% continue bronchodilators Nocturnal oximetry reviewed Needs PFTs done as outpatient Requires 4l NC at rest and 5L on ambulation Mild Hyperkalemia Resolved monitor potassium Tachycardia: Resolved Sinus tachycardia due to respiratory illness. Asymptomatic HTN: stable Cirrhosis: stable Initially held Spironolactone secondary to hyperkalemia continue spironolactone no signs of volume overload Hx of alcohol use and hep B Patient unsure of other details Tobacco use disorder: Counselled to quit smoking CT chest: 1. Severe pulmonary emphysema 2. No evidence of pathologic adenopathy 3. Mild nodular left lower lobe airspace opacities, likely infectious/inflammatory 4. Lower lobe mucus plugging DVT Px: lovenox Sq Code status: FULL code Dispo: Medically stable Expected return to [facility], [facility] or other facility likely tomorrow Vital Signs: Date Time Temp Pulse Resp B/P (MAP) Pulse Ox O2 Delivery O2 Flow Rate FiO2 12/29/16 08:00 Nasal Cannula 4.0 12/29/16 07:09 80 16 92 Nasal Cannula 4.0 12/29/16 07:04 36.8 89 20 106/80 (89) 92 Nasal Cannula 4.0 12/29/16 04:26 73 18 95 Nasal Cannula 4.0 12/29/16 04:00 Nasal Cannula 4.0 12/29/16 03:24 36.5 80 20 117/74 (88) 95 Nasal Cannula 4.0 12/29/16 00:00 Nasal Cannula 4.0 12/28/16 23:08 80 18 95 Nasal Cannula 4.0 12/28/16 23:07 36.5 82 18 100/62 (75) 98 Nasal Cannula 4.0 12/28/16 20:00 Nasal Cannula 4.0 12/28/16 19:00 91 18 91 Nasal Cannula 4.0 12/28/16 18:52 36.9 92 20 106/65 (79) 90 Nasal Cannula 4.0 12/28/16 16:00 Nasal Cannula 4.0 12/28/16 15:14 88 18 91 Nasal Cannula 4.0 12/28/16 15:07 36.9 86 20 107/70 (82) 90 Nasal Cannula 4.0 12/28/16 11:53 Nasal Cannula 4.0 12/28/16 11:47 36.6 90 21 126/76 (93) 90 Nasal Cannula 4.0 12/28/16 11:19 91 18 90 Nasal Cannula 4.0
[2016-12-29] MEDS: MONTELUKAST SOD 10 MG TAB PO SCH (22:27)
[2016-12-30 03:36] VITALS: PULSE 86; O2SAT 97
[2016-12-30] MEDS: IPRATROPIUM BROMIDE NEB SOLN 0.02% 2.5 ML VIAL INH SCH ×3 (03:36→11:25)
[2016-12-30] MEDS: LEVALBUTEROL 1.25MG/0.5ML NEB INH SCH ×3 (03:36→11:25)
[2016-12-30 07:07] LABS: BUN/CREATININE RATIO 39.1 (10-20); CALCIUM 8.1 mg/dl (8.5-10.1); CREATININE 0.47 mg/dl (0.60-1.40); POTASSIUM 3.8 mmol/L (3.5-5.1)
[2016-12-30 07:13] VITALS: PULSE 76; O2SAT 92
[2016-12-30 07:22] VITALS: BP 103/68; PULSE 73; TEMP 36.8; O2SAT 93
[2016-12-30] MEDS: DOCUSATE SODIUM 100 MG CAP PO SCH (08:29)
[2016-12-30] MEDS: PANTOprazole SOD 40 MG TAB PO SCH (08:29)
[2016-12-30] MEDS: GUAIFENESIN 600 MG TABCR PO SCH (08:29)
[2016-12-30] MEDS: FLUTICASONE/SALMETEROL (ADVAIR) 500/50 INH 14 PUFF INH SCH (08:29)
[2016-12-30] MEDS: SPIRONOLACTONE 25 MG TAB PO SCH (08:30)
[2016-12-30] MEDS: NICOTINE 14 MG/24 HR TDSY TD SCH (08:30)
[2016-12-30] MEDS: ENOXAPARIN 40 MG/0.4 ML SYR SC SCH (08:31)
[2016-12-30] MEDS: LORATADINE 10 MG TAB PO SCH (08:31)
--- NOTE | 2016-12-30 09:51 | Progress Note ---
Internal Med Progress Note Date of Service: Dec 30, 2016. Provider Documentation: SUBJECTIVE: Seen and examined at bedside. Reports intermittent cough Denies chest pain, SOB at rest Still requiring 4L NC to maintain sats No new complaints OBJECTIVE: Vital Signs-as noted below Physical Exam: General Appearance:Moderately built and nourished, no apparent distress Head: normocephalic, Atraumatic Eyes: normal inspection, EOMI, PERRL Neck: supple, Trachea midline Respiratory/Chest: Decreased breath sounds, CTA Cardiovascular: S1, S2, No murmur Abdomen/GI:Soft, Non tender, Bowel sounds present Extremities/Musculoskelatal:normal inspection, no edema Neurologic/Psych:AAOX3, grossly no focal neurological deficits Skin: normal color, warm Lab data as noted below. ASSESSMENT & PLAN: Patient is a 61yr male with a PMH of COPD, HTN and cirrhosis who has a COPD exacerbation causing acute hypoxic respiratory failure. Acute hypoxic/hypercapnic respiratory failure 2/2 COPD exacerbation: likely Acute Bronchitis CXR: no signs of CHF Continue Solumedrol 40mg q8h >>> 40mg BID > 40mg daily>>> continue prednisone taper Continue nebs q4h completed Levaquin for 7 days Off BiPAP Appreciate Pulmonology Input Oxygen support PRN, titrate oxygen to keep sats between 88-92% continue bronchodilators Nocturnal oximetry reviewed 2 step: 4l NC at rest and 5L on ambulation Needs PFTs done as outpatient Discussed with at [facility] today Patient prefers not to be on BiPAP Mild Hyperkalemia Resolved monitor potassium Tachycardia: Resolved Sinus tachycardia due to respiratory illness. Asymptomatic HTN: stable Cirrhosis: stable Initially held Spironolactone secondary to hyperkalemia continue spironolactone no signs of volume overload Hx of alcohol use and hep B Patient unsure of other details Tobacco use disorder: Counselled to quit smoking CT chest: 1. Severe pulmonary emphysema 2. No evidence of pathologic adenopathy 3. Mild nodular left lower lobe airspace opacities, likely infectious/inflammatory 4. Lower lobe mucus plugging DVT Px: lovenox Sq Code status: FULL code Dispo: Plan to discharge today Expected return to [facility] today Follow up with at [facility] facility within 1 week as advised Seek immediate medical attention if your symptoms reoccur or worsen Complete the prednisone taper as prescribed Vital Signs: Date Time Temp Pulse Resp B/P (MAP) Pulse Ox O2 Delivery O2 Flow Rate FiO2 12/30/16 11:25 70 16 93 Nasal Cannula 4.0 12/30/16 07:22 36.8 73 18 103/68 (80) 93 Nasal Cannula 4.0 12/30/16 07:13 76 16 92 Nasal Cannula 4.0 12/30/16 03:36 86 16 97 Nasal Cannula 4.0 12/30/16 00:00 Nasal Cannula 4.0 12/29/16 23:49 36.6 86 20 107/70 (82) 92 Nasal Cannula 4.0 12/29/16 23:06 82 16 92 Nasal Cannula 4.0 12/29/16 20:00 Nasal Cannula 4.0 12/29/16 19:13 86 16 92 Nasal Cannula 4.0 12/29/16 16:16 36.8 84 18 120/65 (83) 92 Nasal Cannula 4.0 12/29/16 16:16 92 Nasal Cannula 4.0 12/29/16 15:22 36.9 85 20 104/68 (80) 90 Nasal Cannula 4.0 12/29/16 15:00 Nasal Cannula 4.0 12/29/16 14:46 36.8 80 18 92 4.0 12/29/16 14:36 89 16 92 Nasal Cannula 4.0 12/29/16 12:00 36.9 98 22 112/67 (82) 93 Nasal Cannula 4.0 12/29/16 11:43 Nasal Cannula 4.0 Lab Results: Results Past 24 Hours Test 12/30/16 06:08 Range/Units Sodium Level 136 136-145 mmol/L Potassium Level 3.8 3.5-5.1 mmol/L Chloride Level 97 98-107 mmol/L Carbon Dioxide Level 36 21-32 mmol/L Anion Gap 3.0 3-11 mmol/L Blood Urea Nitrogen 18 7-18 mg/dl Creatinine 0.47 0.60-1.40 mg/dl Est Creatinine Clear Calc Drug Dose 138.8 ml/min Estimated GFR () 138.1 Estimated GFR (Non- 119.1 BUN/Creatinine Ratio 39.1 10-20 Random Glucose 79 70-99 mg/dl Calcium Level 8.1 8.5-10.1 mg/dl
[2016-12-30] MEDS ORDERED: NICO14DI5 TD (10:17)
[2016-12-30] MEDS ORDERED: MRLP17X PO (10:17)
[2016-12-30] MEDS ORDERED: PRED10TA PO (10:17)
--- NOTE | 2016-12-30 10:21 | Discharge Summary ---
Discharge Summary Date of Service Dec 30, 2016. Discharge Summary Admission Date: Dec 19, 2016 at 23:13 Discharge Date: Dec 30, 2016 Discharge Disposition: Personal care ([facility]) Principal Diagnosis: Acute hypoxic/hypercapnic respiratory failure 2/2 COPD exacerbation Procedures: CT chest: 1. Severe pulmonary emphysema 2. No evidence of pathologic adenopathy 3. Mild nodular left lower lobe airspace opacities, likely infectious/inflammatory 4. Lower lobe mucus plugging Consultations: Pulmonary Pending Studies/Follow-Up: Follow up with at [facility] facility within 1 week as advised Seek immediate medical attention if your symptoms reoccur or worsen Complete the prednisone taper as prescribed Use Oxygen via Nasal Cannula 4L at rest and 5L with ambulation Medication Reconciliation New Medications: Prednisone Tab (Prednisone) 10 Mg Tab 10 MG PO UD for 8 Days, #15 TAB Start taking 30mg for 2 days, then 20mg for 3 days, then 10mg for 3 days and stop Nicotine (Nicoderm Cq 14MG Patch) 14 Mg/24 Hr Dis 1 PATCH TD QAM for 30 Days, #30 EA Polyethylene (Miralax) 17 Gm Pow 17 GM PO DAILY PRN for Constipation for 7 Days, #7 Continued Medications: Albuterol Hfa (Ventolin Hfa) 200 Puffs/00198 Mcg Aers 2-4 PUFFS INH Q6H PRN for Shortness of Breath, #1 INHALER Fluticasone Prop/Salmeterol (Advair Diskus 500-50 Mcg/Dose) 14 Puff/1 Inhaler Aerp 1 PUFF PO DAILY Ipratropium-Albuterol (Duoneb) 3 Ml Nebu 1 TREATMENT INH Q4H, INHA Loratadine (Claritin) 10 Mg Tab 10 MG PO DAILY, TAB Montelukast Sodium (Montelukast Sodium) 10 Mg Tab 10 MG PO DAILY, TAB 3 Refills Spironolactone (Aldactone) 25 Mg Tab 25 MG PO DAILY, TAB Admission Information HPI (per Admitting provider): 61 YO male, inmate at [facility]. History of severe COPD and other problems noted below. Developed sinus drainage and a cough a few days ago. Cough productive of white sputum. Possible low grade temp. Started on azithromycin. Received nebulizer treatments. Progressive wheezing and dyspnea. Very SOB today with document O2 sat of 76% on RA. EMS summoned. Transferred to ED. Received O2, DuoNeb, Solu-Medrol. Feeling better by time of my assessment. . Physical Exam (per Admitting): General Appearance: + mild distress Head: normocephalic, atraumatic Eyes: normal inspection, PERRL, EOMI, sclerae normal ENT: hearing grossly normal, pharynx normal Neck: supple, no adenopathy, thyroid normal, trachea midline Respiratory/Chest: + accessory muscle use, + wheezing (diffuse) Cardiovascular: regular rate, rhythm, no edema, no gallop, no JVD, no murmur , normal peripheral pulses, + tachycardia Abdomen/GI: normal bowel sounds, non tender, soft, no organomegaly, no pulsatile mass Extremities/Musculoskelatal: no calf tenderness, no pedal edema Neurologic/Psych: fryline attendant II-XII nml as tested (PERRL, EOMI, no facial palsy, no dysarthria), alert, normal mood/affect, oriented x 3 Skin: normal color, warm/dry, no rash Lymphatic: no adenopathy Hospital Course Patient is a 61yr male with a PMH of COPD, HTN and cirrhosis who has a COPD exacerbation causing acute hypoxic respiratory failure. Acute hypoxic/hypercapnic respiratory failure 2/2 COPD exacerbation: likely Acute Bronchitis CXR: no signs of CHF Continue Solumedrol 40mg q8h >>> 40mg BID > 40mg daily>>> continue prednisone taper Continue nebs q4h completed Levaquin for 7 days Off BiPAP Appreciate Pulmonology Input Oxygen support PRN, titrate oxygen to keep sats between 88-92% continue bronchodilators Nocturnal oximetry reviewed 2 step: 4l NC at rest and 5L on ambulation Needs PFTs done as outpatient Discussed with at [facility] today Mild Hyperkalemia Resolved monitor potassium Tachycardia: Resolved Sinus tachycardia due to respiratory illness. Asymptomatic HTN: stable Cirrhosis: stable Initially held Spironolactone secondary to hyperkalemia continue spironolactone no signs of volume overload Hx of alcohol use and hep B Patient unsure of other details Tobacco use disorder: Counselled to quit smoking CT chest: 1. Severe pulmonary emphysema 2. No evidence of pathologic adenopathy 3. Mild nodular left lower lobe airspace opacities, likely infectious/inflammatory 4. Lower lobe mucus plugging DVT Px: lovenox Sq Code status: FULL code Dispo: Plan to discharge today Expected return to [facility] today Follow up with at [facility] within 1 week as advised Seek immediate medical attention if your symptoms reoccur or worsen Complete the prednisone taper as prescribed Total time spent on discharge = 35 minutes This includes examination of the patient, discharge planning, medication reconciliation, and communication with other providers. Discharge Instructions Discharge Instructions Date of Service Dec 30, 2016. Admission Reason for Admission: Acute Respiratory Failure With Hypoxia Discharge Discharge Diagnosis / Problem: Acute hypoxic/hypercapnic respiratory failure 2/ 2 COPD exacerbation Discharge Goals Goal(s): Decrease discomfort, Improve function Activity Recommendations Activity Limitations: resume your previous activity Exercise/Sports Limitations: as tolerated . Instructions / Follow-Up Instructions / Follow-Up Follow up with at [facility] within 1 week as advised Seek immediate medical attention if your symptoms reoccur or worsen Complete the prednisone taper as prescribed Use Oxygen via Nasal Cannula 4L at rest and 5L with ambulation Current Hospital Diet Patient's current hospital diet: AHA Diet (Heart Healthy) Discharge Diet Recommended Diet: AHA Diet (Heart Healthy) Pending Studies Studies pending at discharge: no Medical Emergencies . Who to Call and When: Medical Emergencies: If at any time you feel your situation is an emergency, please call 911 immediately. . Non-Emergent Contact Non-Emergency issues call your: Primary Care Provider Call Non-Emergent contact if: you have a fever, your pain is not controlled, your pain is worsening, your pain is unusual for you, you have any medication questions If your Shortness of breath, cough is worsening . . "Provider Documentation" section prepared by Grey Lara. . VTE Core Measure Inpt VTE Proph given/why not?: Enoxaparin (Lovenox)SQ
[2016-12-30 11:25] VITALS: PULSE 70; O2SAT 93
--- NOTE | 2016-12-30 12:56 | PULMONARY PROGRESS NOTE ---
DATE: 12/30/2016 TIME: 11:40 a.m. SUBJECTIVE: I was asked to see the patient today by Dr. Lara. The patient has been hospitalized for approximately 11 days. He is essentially ready for discharge back to [facility]. The patient states he is feeling much better. He states he is much more awake than he was initially. His dyspnea has markedly improved. He has very little cough. The patient states he has had breathing difficulties for at least 10 years. He has been hospitalized at other times for it. He has a long-standing history of heavy smoking. Not that longer ago, he was doing 2 packs per day. He states he had cut back to about a pack or more relatively recently. During this hospital stay, he was found to have severely abnormal arterial blood gases. The most recent gas was done on December 24, which was 6 days ago. At that time, his pH was normal at 7.42, but his pCO2 was 71 and pO2 was 49. The patient had been wearing BiPAP for several days and at nighttime. He has not worn BiPAP for a few nights. He found it very uncomfortable. He does not feel that he is any more short of breath or more lethargic since he is not wearing it. He did have an overnight pulse oximetry study done recently on December 28. The study was started on room air and just a few minutes, he desaturated down to 81%. He was then started on 4 liters of oxygen where he was maintained for the most part above 90%. There was just a couple of desaturations down to 88%. No significant desaturation except for the very start of the study, which was done on room air. OBJECTIVE: GENERAL: The patient appears comfortable. He was cooperative, alert, and oriented. VITAL SIGNS: Temperature was 36.8. The heart rate was 70 beats per minute. The rhythm was regular. Blood pressure was 103/68. Respiratory rate was 16 breaths per minute. NECK: Palpation of the neck reveals no lymph nodes. LUNGS: Lung huertas revealed severely diminished breath sounds bilaterally. There was prolongation to the expiratory phase of respiration. Oxygen saturation was 93% on 4 liters. EXTREMITIES: Showed no cyanosis, clubbing or edema. I did review the patient's CAT scan of the chest that was done on December 28. This showed severe pulmonary emphysema. There was very minimal left lower lobe opacities that were likely infectious or inflammatory. IMPRESSIONS: 1. Respiratory failure with hypoxia and hypercarbia -- improved. 2. Chronic obstructive pulmonary disease exacerbation. 3. Emphysema. COMMENTS AND RECOMMENDATIONS: I have no objection to discharge. The patient still needs oxygen at approximately 4 liters. He has not worn BiPAP for a few nights. The patient does not want the BiPAP. His clinical status seems reasonably stable without it. I spoke with the patient extensively about the need to totally abstain from smoking because of his respiratory failure on a chronic basis. I explained to him his chances for avoiding readmission to the hospital or substantially better if he does not smoke. He is on prednisone, which can be tapered over time. He is on neb treatments that I assume would continue. In an ideal world, he should have pulmonary functions as an outpatient if that is feasible.
[2016-12-30 13:05] VITALS: BP 103/68; PULSE 70; TEMP 36.8; O2SAT 93
== END 2016-12-30 15:46 | disposition home or self-care (01) | DRG 190 ==
LOC: C.EDB 21:30 → C.2T 23:13 → ENRESERV 23:23 → EDBEDREQ 12-29 14:33 → ENRESERV 12-29 14:41 → C.MED 12-29 16:30
PROVIDERS: ADMIT Hospitalist; ATTEND Internal Medicine
DX: J44.1 Chronic obstructive pulmonary disease with (acute) exacerbation (principal); J96.01 Acute respiratory failure with hypoxia; J96.02 Acute respiratory failure with hypercapnia; J44.0 Chronic obstructive pulmonary disease with (acute) lower respiratory infection; J20.9 Acute bronchitis, unspecified; K21.9 Gastro-esophageal reflux disease without esophagitis; I10 Essential (primary) hypertension; R00.0 Tachycardia, unspecified; K74.60 Unspecified cirrhosis of liver; E87.5 Hyperkalemia; F17.200 Nicotine dependence, unspecified, uncomplicated; Z79.899 Other long term (current) drug therapy

== ENCOUNTER 2018-07-14 08:07 | Inpatient (IN) ==
[~2018-07-14 08:07] MED LIST: ETOMIDATE 2 MG/ML 20 ML VIAL IV ONE
[2018-07-14] MEDS ORDERED: LEVOFLOXACIN/D5W 750 MG/150 ML BAG IV STA (08:18)
[2018-07-14] MEDS ORDERED: ALBUT/IPRATROP 3MG/0.5MG NEB 3 ML VIAL INH STA (08:18)
[2018-07-14] MEDS ORDERED: methylPREDNISolone 125 MG/2 ML VIAL IV STA (08:18)
[2018-07-14] MEDS ORDERED: SODIUM CHLORIDE 0.9% 500 ML IV SCH (08:30)
[2018-07-14 08:39] LABS: Hematocrit (blood only) 39.2 % (42-52); Mean Corpuscular Hgb Conc 33.2 g/dL (32-36); Mean Corpuscular Volume 92.7 fL (80-100); Mean Platelet Volume 9.2 fL (7.4-10.4); Platelet Count 377 K/uL (130-400); RDW Coefficient of Variation 13.7 % (11.5-14.5); RDW Standard Deviation 46.3 fL (36.4-46.3); Red Blood Count 4.23 M/uL (4.7-6.1); White Blood Count 15.81 K/uL (4.8-10.8)
[2018-07-14 08:47] LABS: INR 1.1 (0.9-1.1); Partial Thromboplastin Ratio 1.1; Partial Thromboplastin Time 27.4 Seconds (21.0-31.0); Prothrombin Time 10.6 Seconds (9.0-12.0)
[2018-07-14 08:55] LABS: Alanine Aminotransferase 15 U/L (12-78); Albumin Level 3.5 gm/dl (3.4-5.0); Aspartate Aminotransferase 14 U/L (15-37); Blood Urea Nitrogen 12 mg/dl (7-18); Calcium 9.2 mg/dl (8.5-10.1); Carbon Dioxide 36 mmol/L (21-32); Chloride 91 mmol/L (98-107); Creatinine Clr Calc Pharmacy 77.4 ml/min; Est GFR (African American) 110.2; Est GFR (Non-African American) 95.1; Glucose 223 mg/dl (70-99); Magnesium 2.3 mg/dl (1.8-2.4); Potassium 4.5 mmol/L (3.5-5.1); Sodium 131 mmol/L (136-145)
[2018-07-14 09:02] LABS: Basophils # (auto) 0.02 K/uL (0-0.2); Basophils % (auto) 0.1 %; Eosinophils # (auto) 0.09 K/uL (0-0.5); Eosinophils % (auto) 0.6 %; Immature Granulocytes # (auto) 0.16 K/uL (0.00-0.02); Lymphocytes % (auto) 17.1 %; Monocytes # (auto) 1.92 K/uL (0.11-0.59); Monocytes % (auto) 12.1 %; Neutrophils # (auto) 10.92 K/uL (1.4-6.5); Neutrophils % (auto) 69.1 %
[2018-07-14 09:04] LABS: Albumin Globulin Ratio 0.7 (0.9-2); Alkaline Phosphatase 73 U/L (45-117); Bilirubin,Total 0.4 mg/dl (0.2-1); Creatine Kinase MB 6.4 ng/ml (0.5-3.6); Globulin 4.8 gm/dl (2.5-4.0); Total Protein 8.3 gm/dl (6.4-8.2); Troponin I 0.092 ng/ml (0-0.045)
[2018-07-14 09:04] LABS: Base Excess ABG 2.9 mEq/L (-9-1.8); HCO3 ABG 39 mmol/L (19-24)
--- NOTE | 2018-07-14 09:04 | XRay Report ---
XR chest 1V portable HISTORY: 62 years-old Male Dyspnea acute shortness of breath COMPARISON: Chest radiograph 03/19/2018, chest CT 12/28/2016 TECHNIQUE: Portable AP view of the chest FINDINGS: Study is limited secondary to positioning. Advanced bullous emphysema with chronic reticular scarring redemonstrated. No pneumothorax, pleural effusion or overt pulmonary edema. The lungs are hyperinfla hattie. Bibasilar lateral right midlung ill-defined subsegmental opacities. Degenerative changes of the shoulders and spine. IMPRESSION: 1. Limited study secondary to positioning. 2. Advanced bullous emphysema. 3. Ill-defined subsegmental bibasilar and lateral right midlung opacities suggest atelectasis/scarrin g or pneumonitis. The above report was generated using voice recognition software. It may contain grammatical, syntax o r spelling errors. Electronically signed by: Jason Marcus M.D. 07/14/2018 9:02 AM
[2018-07-14 09:20] LABS: Influenza A virus by PCR Neg for Influ A (Neg); Influenza B virus by PCR Neg for Influ B (Neg)
[2018-07-14] MEDS ORDERED: PIPERACILLIN/TAZOBACTAM 4.5 GM in DEXTROSE 5% 100 ML IV STA (09:20)
[2018-07-14] MEDS ORDERED: PIPERACILL/TAZOBAC CONSULT ACTIVE PRN ×2 (09:20→11:26)
[2018-07-14 09:21] LABS: Allen Test POS (Pos)
[2018-07-14 09:24] LABS: PCO2 ABG 150 mmHg (35-46); PO2 ABG 197 mm/Hg (80-95)
[2018-07-14 09:25] LABS: pH ABG 7.03 (7.35-7.45)
[2018-07-14] MEDS ORDERED: RAPID SEQUENCE INDUCTION BAG ONE (09:28)
[2018-07-14] MEDS ORDERED: LORazepam 2 MG/4 ML VIAL IV STA (09:39)
--- NOTE | 2018-07-14 09:52 | Emergency Department Note ---
Entered by Leydi Dhillon acting as a scribe for History of Present Illness General Chief complaint: Shortness of Breath/Dyspnea Time Seen by Provider: 07/14/18 08:10 Source: RN notes reviewed Limitations: physical limitation History of Present Illness Provider complaint: shortness of breath Onset (ago): hour(s) (2 hours 15 minutes) Location: chest Pain Consistency: + other (persistent) Quality: + other (shortness of breath) Associated symptoms: + other (Denies: chest pain) Treatments prior to arrival: other (Duoneb x 2) The patient is a 62 year old male who presents to the Emergency Room with complaints of persistent shortness of breath beginning 2 hours 15 minutes ago. Nursing staff reports the patient denies chest pain. He was given 2 Duonebs prior to arrival. The patient wears oxygen at all times. History limited secondary to patient's shortness of breath. Home Medications Home Medications Medication Instructions Recorded Confirmed Type fluticasone-salmeterol [Advair 1 inh INHALATION BID 03/19/18 07/14/18 History Diskus] montelukast [Singulair] 10 mg PO QAM 03/19/18 07/14/18 History spironolactone [Aldactone] 25 mg PO QAM 03/19/18 07/14/18 History ipratropium-albuterol 3 ml INHALATION QID 7 Days #126 ml 03/26/18 07/14/18 Rx guaifenesin 400 mg PO TID 07/14/18 07/14/18 History levalbuterol tartrate [Xopenex HFA] 2 inh INHALATION TID PRN 07/14/18 07/14/18 History prednisone 40 mg PO DAILY 07/14/18 07/14/18 History tiotropium bromide [Spiriva with 1 cap INHALATION DAILY 07/14/18 07/14/18 History HandiHaler] Allergies Allergy/AdvReac Type Severity Reaction Status Date / Time No Known Allergies Allergy Unverified 07/14/18 08:44 Past Med/Surg History Medical History Pneumonia (Resolved) Tachycardia (Resolved) COPD exacerbation (Resolved) Acute respiratory failure with hypoxia (Resolved) COPD (chronic obstructive pulmonary disease) Cirrhosis of liver GERD (gastroesophageal reflux disease) History of hepatitis B Hypertension Tobacco abuse Family History Other Diabetes Heart disease Kidney disease Social History Current Living Situation: Other Current Living Situation Comment: [facility] facility Feels Safe at Home: No Is there a partner from a previous relationship who is making you feel unsafe now?: No Smoking Status: Unknown if ever smoked Hx Alcohol Use: No Hx Substance Use: No Beliefs That Will Affect Care: Judaism Judaism Beliefs: non-roman catholic Confucianist" Preferred Language: Maori Review of Systems Other (Unobtainable due to shortness of breath) Physical Exam Vital Signs Vital Signs - 24 hr 07/14/18 08:16 07/14/18 08:22 07/14/18 08:52 Sepsis Recent Fever Within 48 Hours No Sepsis Action Taken by Nursing No Action Required Pulse Rate 147 H 141 H Respiratory Rate 30 H 34 H Respiratory Effort / Characteristics Labored Respiratory Depth Retractive Blood Pressure 143/96 H 129/82 Blood Pressure Mean 111 97 Pulse Oximetry 97 96 Oxygen Delivery Method Ambu-Bag Non-rebreather Non-rebreather Oxygen Flow Rate 10 07/14/18 09:01 07/14/18 09:02 Sepsis Recent Fever Within 48 Hours Sepsis Action Taken by Nursing Pulse Rate 133 H Respiratory Rate 32 H Respiratory Effort / Characteristics Respiratory Depth Blood Pressure 134/100 Blood Pressure Mean 111 Pulse Oximetry 97 95 Oxygen Delivery Method Non-rebreather Oxygen Flow Rate 10 CONSTITUTIONAL/VITAL SIGNS: Reviewed / noted above. GENERAL: Non-toxic in appearance. INTEGUMENTARY: Warm, dry, and [place]. HEAD: Normocephalic. EYES: without scleral icterus or trauma. ENT/OROPHARYNX: clear and moist. LYMPHADENOPATHY/NECK: Is supple without lymphadenopathy or meningismus. RESPIRATORY: Mild increased work of breathing. Diminished breath sounds bilaterally CARDIOVASCULAR: Regular rate and rhythm. GI/ABDOMEN: Soft and nontender. No organomegaly or pulsatile mass. No rebound or guarding. Normal bowel sounds. EXTREMITIES: Warm and well perfused. BACK: No CVA tenderness. NEUROLOGICAL: Nonverbal, not following commands. PSYCHIATRIC: normal affect. MUSCULOSKELETAL: Normally developed with good muscle tone. Procedures Free Text Procedures Endotracheal Intubation Indication: hyopxia. The patient was on 100% oxygen via NRB prior to the procedure. Suction, airway equipment, RSI drugs, respiratory equipment, and appropriate personnel were prepared prior to the initiation of the procedure. A time out was taken. Induction was performed with 20 mg Etomidate. After observing the clinical benefit of the medications, the airway was easily visualized utilizing a GlideScope. A 7.5 size ETT tube was placed atraumatically to 24 cm using standard technique. The cuff inflated without signs of malfunction. There were bilateral breath sounds, positive colormetric change, no gastric sounds, a good capnography waveform, and post procedure pulse oximetry was 96%. Post intubation sedation performed with Ativan 2 mg IV. There were no complications. Course 0814: Past medical records reviewed. The patient was evaluated in room B10, and a complete history and physical examination were performed. 922: Upon reevaluation, the patient is resting. I discussed test results. 925: I reviewed the patient's case with Tierney Tena PA-C, [facility]. She will evaluate the patient for further management. 44: Discussed the case with Dr. Lima, grounds person. Consultations Consultation #1: Tierney Tena PA-C, [facility] Time: 09:26 Consultation #2: Dr. Lima, grounds person. Time: 09:44 Administered Medications Discontinued Medications Albuterol (Duoneb) 3 ml INH NOW STA Stop: 07/14/18 08:19 Last Admin: 07/14/18 09:07 Dose: 3 ml Sodium Chloride (Nss) 500 mls @ 999 mls/hr IV .Q31M SIENNA Stop: 07/14/18 09:00 Last Admin: 07/14/18 08:49 Dose: 999 mls/hr Levofloxacin/Dextrose (Levaquin/D5w) 750 mg in 150 mls @ 100 mls/hr IV NOW STA Stop: 07/14/18 09:47 Last Admin: 07/14/18 08:49 Dose: 100 mls/hr Lorazepam (Ativan) 2 mg in 4 mls @ 4 mls/min IV NOW STA Stop: 07/14/18 09:40 Last Admin: 07/14/18 09:46 Dose: 4 mls/min Methylprednisolone (Solumedrol) 125 mg IV NOW STA Stop: 07/14/18 08:19 Last Admin: 07/14/18 08:47 Dose: 125 mg Medical Decision Making Differential Diagnosis Etiologies such as infections, reactive airway disease, COPD, pneumonia, pleural effusion, pulmonary edema, ARDS, pneumothorax, CHF, cardiac ischemia, cardiac tamponade, dysrhythmia, anemia, pulmonary embolism, musculoskeletal, gastrointestinal process, as well as others were entertained. Medical Records Attestation: I reviewed the patient's medical records. Home Medications Current Medication List: was personally reviewed by me Laboratory Data Attestation: I reviewed the patient's lab results. Result diagrams: 07/14/18 08:20 07/14/18 08:20 Lab Results 07/14/18 07/14/18 07/14/18 Range/Units 08:20 08:20 08:20 WBC 15.81 H (4.8-10.8) K/uL RBC 4.23 L (4.7-6.1) M/uL Hgb 13.0 L (14.0-18.0) g/dL Hct 39.2 L (42-52) % MCV 92.7 (80-100) fL MCH 30.7 (25-34) pg MCHC 33.2 (32-36) g/dL RDW Std Deviation 46.3 (36.4-46.3) fL RDW Coeff of Leann 13.7 (11.5-14.5) % Plt Count 377 (130-400) K/uL MPV 9.2 (7.4-10.4) fL Immature Gran % (Auto) 1.0 % Neut % (Auto) 69.1 % Lymph % (Auto) 17.1 % Noble % (Auto) 12.1 % Eos % (Auto) 0.6 % Baso % (Auto) 0.1 % Immature Gran # (Auto) 0.16 H (0.00-0.02) K/uL Neut # (Auto) 10.92 H (1.4-6.5) K/uL Lymph # (Auto) 2.70 (1.2-3.4) K/uL Noble # (Auto) 1.92 H (0.11-0.59) K/uL Eos # (Auto) 0.09 (0-0.5) K/uL Baso # (Auto) 0.02 (0-0.2) K/uL PT 10.6 (9.0-12.0) Seconds INR 1.1 (0.9-1.1) APTT 27.4 (21.0-31.0) Seconds PTT Ratio 1.1 ABG pH (7.35-7.45) ABG pCO2 (35-46) mmHg ABG pO2 (80-95) mm/Hg ABG HCO3 (19-24) mmol/L ABG O2 Saturation (90-95) % ABG Base Excess (-9-1.8) mEq/L [place] Test (Pos) Barometric Pressure mm/Hg Oxygen Given Sodium 131 L (136-145) mmol/L Potassium 4.5 (3.5-5.1) mmol/L Chloride 91 L (98-107) mmol/L Carbon Dioxide 36 H (21-32) mmol/L Anion Gap 4.0 (3-11) BUN 12 (7-18) mg/dl Creatinine 0.80 (0.6-1.4) mg/dl Est Cr Clr Drug Dosing 77.4 ml/min Est GFR ( Amer) 110.2 Est GFR (Non-Af Amer) 95.1 BUN/Creatinine Ratio 15.0 (10-20) Glucose 223 H (70-99) mg/dl POC Lactic Acid Danny (0.90-1.70) mmol/L Calcium 9.2 (8.5-10.1) mg/dl Magnesium 2.3 (1.8-2.4) mg/dl Total Bilirubin 0.4 (0.2-1) mg/dl AST 14 L (15-37) U/L ALT 15 (12-78) U/L Alkaline Phosphatase 73 (45-117) U/L CK-MB (CK-2) 6.4 H (0.5-3.6) ng/ml Troponin I 0.092 H* (0-0.045) ng/ml Total Protein 8.3 H (6.4-8.2) gm/dl Albumin 3.5 (3.4-5.0) gm/dl Globulin 4.8 H (2.5-4.0) gm/dl Albumin/Globulin Ratio 0.7 L (0.9-2) Influenza Type A (PCR) (Neg) Influenza Type B (PCR) (Neg) 02/19/19 02/19/19 02/19/19 Range/Units 08:28 08:43 08:53 WBC (4.8-10.8) K/uL RBC (4.7-6.1) M/uL Hgb (14.0-18.0) g/dL Hct (42-52) % MCV (80-100) fL MCH (25-34) pg MCHC (32-36) g/dL RDW Std Deviation (36.4-46.3) fL RDW Coeff of Leann (11.5-14.5) % Plt Count (130-400) K/uL MPV (7.4-10.4) fL Immature Gran % (Auto) % Neut % (Auto) % Lymph % (Auto) % Noble % (Auto) % Eos % (Auto) % Baso % (Auto) % Immature Gran # (Auto) (0.00-0.02) K/uL Neut # (Auto) (1.4-6.5) K/uL Lymph # (Auto) (1.2-3.4) K/uL Noble # (Auto) (0.11-0.59) K/uL Eos # (Auto) (0-0.5) K/uL Baso # (Auto) (0-0.2) K/uL PT (9.0-12.0) Seconds INR (0.9-1.1) APTT (21.0-31.0) Seconds PTT Ratio ABG pH 7.03 L* (7.35-7.45) ABG pCO2 150 H (35-46) mmHg ABG pO2 197 H (80-95) mm/Hg ABG HCO3 39 H (19-24) mmol/L ABG O2 Saturation 99.0 H (90-95) % ABG Base Excess 2.9 H (-9-1.8) mEq/L [place] Test POS (Pos) Barometric Pressure 746.6 mm/Hg Oxygen Given 10L Sodium (136-145) mmol/L Potassium (3.5-5.1) mmol/L Chloride (98-107) mmol/L Carbon Dioxide (21-32) mmol/L Anion Gap (3-11) BUN (7-18) mg/dl Creatinine (0.6-1.4) mg/dl Est Cr Clr Drug Dosing ml/min Est GFR ( Amer) Est GFR (Non-Af Amer) BUN/Creatinine Ratio (10-20) Glucose (70-99) mg/dl POC Lactic Acid Danny 1.66 (0.90-1.70) mmol/L Calcium (8.5-10.1) mg/dl Magnesium (1.8-2.4) mg/dl Total Bilirubin (0.2-1) mg/dl AST (15-37) U/L ALT (12-78) U/L Alkaline Phosphatase (45-117) U/L CK-MB (CK-2) (0.5-3.6) ng/ml Troponin I (0-0.045) ng/ml Total Protein (6.4-8.2) gm/dl Albumin (3.4-5.0) gm/dl Globulin (2.5-4.0) gm/dl Albumin/Globulin Ratio (0.9-2) Influenza Type A (PCR) Neg for Influ A (Neg) Influenza Type B (PCR) Neg for Influ B (Neg) Imaging Data Radiologist's Impression: Radiology results as stated below per my review and the radiologist's interpretation: XR chest 1V portable HISTORY: 62 years-old Male Dyspnea acute shortness of breath COMPARISON: Chest radiograph 03/19/2018, chest CT 12/28/2016 TECHNIQUE: Portable AP view of the chest FINDINGS: Study is limited secondary to positioning. Advanced bullous emphysema with chronic reticular scarring redemonstrated. No pneumothorax, pleural effusion or overt pulmonary edema. The lungs are hyperinflated. Bibasilar lateral right midlung ill-defined subsegmental opacities. Degenerative changes of the shoulders and spine. IMPRESSION: 1. Limited study secondary to positioning. 2. Advanced bullous emphysema. 3. Ill-defined subsegmental bibasilar and lateral right midlung opacities suggest atelectasis/scarring or pneumonitis. The above report was generated using voice recognition software. It may contain grammatical, syntax or spelling errors. Electronically signed by: Jason Marcus M.D. 07/14/2018 9:02 AM ECG Data Attestation: I personally reviewed and interpreted this ECG as follows: Indication: SOB/dyspnea Rate (beats per minute): 148 Rhythm: normal sinus Findings: + PAC; no ST elevation Blood Pressure Blood Pressure Findings: Elevated blood pressure Blood Pressure Disposition: elevated BP felt to be situational MDM Narrative This is a 62-year-old male who presents to the ED with a chief complaint of shortness of breath and altered mental status. Symptoms were noticed at the present at 6 AM today. He was found to be hypoxic. He does have chronic pulmonary issues for which he requires 3 L of oxygen at all times. He was treated with DuoNeb treatment x2 at the [facility] and by EMS x1. His physical exam reveals decreased air movement and increased respiratory distress. An ABG reveals a respiratory acidosis with hypercarbia. The patient did require 15 L of oxygen upon his arrival. His EKG shows a sinus rhythm with PACs at a tachycardic rate. Troponin was elevated at 0.092. White blood cell count was 15.8. Chemistry panel was unremarkable. Glucose is 223. Chest x-ray reveals some chronic lung disease and bibasilar as well as right mid opacities which could represent pneumonia. Because of the respiratory failure, the patient was intubated via endotracheal intubation using a glide scope. This was performed without difficulty. Etomidate was used for sedation. Following the intubation he was given 2 mg of IV Ativan for sedation. The patient was treated with IV fluids as well as IV Levaquin and IV Zosyn. He was also given a DuoNeb treatment and IV Solu-Medrol. I spoke with the hospitalist and the grounds person. The patient will be sent to the ICU. Impression & Plan Respiratory failure, Pneumonia, Respiratory acidosis Critical Care Time I have personally spent greater than 30 minutes of critical care time in the direct management of this patient. This includes bedside care, interpretation of diagnostic studies, and testing, discussion with consultants, patient, and family members, and other required patient management activities. This 30 minutes is in excess of all separately billable procedures. Critical Care Time: Yes Total Critical Care Time: 30 Discharge Plan Visit Data Chief Complaint: Shortness of Breath/Dyspnea ED Provider: Madhu Murphy Discharge Problem: Respiratory failure, Pneumonia, Respiratory acidosis Patient Disposition: Being Evaluated by Hospitalist Forms Stand Alone Forms: My [facility] Prescriptions Prescriptions: No Action spironolactone [Aldactone] 25 mg Tablet 25 mg PO QAM RF: 0 fluticasone-salmeterol [Advair Diskus] 500-50 mcg/dose Blister With Device 1 inh INHALATION BID RF: 0 montelukast [Singulair] 10 mg Tablet 10 mg PO QAM RF: 0 ipratropium-albuterol 0.5 mg-3 mg(2.5 mg base)/3 mL Solution For Nebulization 3 ml INHALATION QID 7 Days Qty: 126 RF: 1 prednisone 20 mg Tablet 40 mg PO DAILY RF: 0 guaifenesin 400 mg Tablet 400 mg PO TID RF: 0 tiotropium bromide [Spiriva with HandiHaler] 18 mcg Capsule, W/Inhalation Device 1 cap INHALATION DAILY RF: 0 levalbuterol tartrate [Xopenex HFA] 45 mcg/actuation Hfa Aerosol Inhaler 2 inh INHALATION TID PRN (Reason: Shortness Of Breath Or Wheezing) RF: 0 Referrals Referrals: Shayne SHARMA [Primary Care Provider] - The scribe's documentation has been prepared under my direction and personally reviewed by me in its entirety. I confirm that the note above accurately reflects all work, treatment, procedures, and medical decision making performed by me.
--- NOTE | 2018-07-14 10:12 | XRay Report ---
XR chest 1V portable CLINICAL HISTORY: 62 years-old Male presenting with intubation. TECHNIQUE: Portable upright AP view of the chest was obtained. COMPARISON: 07/14/2018 and multiple additional prior exams. FINDINGS: Interval intubation. The endotracheal tube terminates in the upper thoracic trachea over 7 cm from th e kendrick. Nasogastric tube descends below the diaphragm, terminus within the proximal stomach, sideho le within the esophagus. Hyperinflated lungs with heterogeneous lung parenchyma and radiolucency of t he left upper lobe. Irregular reticular opacities of the right upper lobe. No large pleural effusion or pneumothorax allowing for heterogeneity of the lung apices. Osseous structures normal. IMPRESSION: 1. Appropriately positioned endotracheal tube. 2. Nasogastric tube terminates approximately in the stomach, sidehole likely within the esophagus; a dvancement recommended. 3. Advanced emphysema. Irregular reticular opacities in the right upper lung are more prominent than on prior exams raising concern for superimposed pneumonia. Electronically signed by: Wayne Rojo M.D. 07/14/2018 10:11 AM
--- NOTE | 2018-07-14 10:33 | History & Physical Report ---
Date of Service July 14, 2018 Assessment & Plan (1) Respiratory failure: (2) Pneumonia: (3) COPD (chronic obstructive pulmonary disease): Pt with hx COPD on 3L oxygen [place]. Sent in from [facility] for SOB and hypoxia. In ER pt was lethargic, unresponsive. P: 147, R: 30, BP: 143/96, 97% on ambubag/ non-rebreather upon ER arrival. WBC: 15, H/H: 13/39, Na: 131, K: 4.5, Cl: 91, CO2: 36, A, BUN: 12, Cr: 0.8. POC Lactic Acid: 1.6 ABG: pH: 7, pCO2: 150, pHCO3: 39, pO2 99% on 10L Negative influenza PCR CXR: Advanced bullous emphysema. Ill-defined subsegmental bibasilar and lateral right midlung opacities suggest atelectasis/scarring or pneumonitis. -Pt Intubated in ER, unresponsive -In ER was given 500ml NSS, Solumedrol 125mg IV, albuterol neb, zosyn, levaquin -ICU - further evaluation, treatment per assistant guest services manager -blood cultures pending -procalcitonin pending -pending MRSA swab -xopenex/atrovent nebs -solumedrol 40mg IV Q8H -zosyn, vancomycin -IVF -CBC, bmp in am -pulmonology consult (4) Elevated troponin: Troponin: 0.09. EKG poor tracing. probable secondary to tachycardia, hypoxia -trend troponin (5) Tachycardia: Tachycardia in 140's -monitor -IVF (6) Hyperglycemia: Glucose: 223 -A1c in AM -novolog sliding scale per protocol (7) Cirrhosis: H/O Hepatitis B. H/O prior ETOH use (8) Tobacco use: -H/O 2ppd x 50 years. unsure if pt still smoking DVT Prophylaxis -Lovenox SQ Admit ICU No advance directives on file. Follows with Dr Byrne at [facility] for routine care Pt was seen with Dr Lara. See addendum History of Present Illness Chief Complaint: Respiratory distress Primary Care Provider: [facility] Pt is 62 y/o M with PMH COPD on 3L oxygen [place], HTN, h/o Hepatitis B, cirrhosis, GERD, h/o tobacco abuse presented to ER from [facility] by EMS for respiratory distress. History obtained from prior medical records and ER staff as pt intubated. Reported pt sent to ER for SOB and oxygen sats down to 83% on oxygen. In ER reported that pt lethargic, unresponsive. P: 147, R: 30, BP: 143/96, 97% on ambubag/non-rebreather upon ER arrival. Pt was intubated in ER. Med list sent with pt shows on prednisone 40mg daily, started 07/13/18 for 5 day course. Pt with [facility] admission on 03/19/18-03/26/18 for respiratory failure, pneumonia. Treated with steroids, Levaquin. Allergies Allergy/AdvReac Type Severity Reaction Status Date / Time No Known Allergies Allergy Unverified 07/14/18 08:44 Home Medications Home Medications Medication Instructions Recorded Confirmed Type fluticasone-salmeterol [Advair 1 inh INHALATION BID 03/19/18 07/14/18 History Diskus] montelukast [Singulair] 10 mg PO QAM 03/19/18 07/14/18 History spironolactone [Aldactone] 25 mg PO QAM 03/19/18 07/14/18 History ipratropium-albuterol 3 ml INHALATION QID 7 Days #126 ml 03/26/18 07/14/18 Rx guaifenesin 400 mg PO TID 07/14/18 07/14/18 History levalbuterol tartrate [Xopenex HFA] 2 inh INHALATION TID PRN 07/14/18 07/14/18 History prednisone 40 mg PO DAILY 07/14/18 07/14/18 History tiotropium bromide [Spiriva with 1 cap INHALATION DAILY 07/14/18 07/14/18 History HandiHaler] Past Med/Surg History Medical History Tobacco use (Chronic) GERD (gastroesophageal reflux disease) (Chronic) Cirrhosis (Chronic) Hepatitis B (Chronic) COPD (chronic obstructive pulmonary disease) (Chronic) HTN (hypertension) (Chronic) Pneumonia (Resolved) Tachycardia (Resolved) COPD exacerbation (Resolved) Acute respiratory failure with hypoxia (Resolved) COPD (chronic obstructive pulmonary disease) Cirrhosis of liver GERD (gastroesophageal reflux disease) History of hepatitis B Hypertension Tobacco abuse Family History Other Diabetes Heart disease Kidney disease Social History Current Living Situation: Other Current Living Situation Comment: [facility] Other Information That Helps Us Care for You: No Feels Safe at Home: No Is there a partner from a previous relationship who is making you feel unsafe now?: No Smoking Status: Current every day smoker Tobacco Type: cigarettes Cigarettes per Day: 24 Hx Alcohol Use: No Hx Substance Use: No Beliefs That Will Affect Care: [employer] Beliefs: non-holiness Tenriism" Preferred Language: Sami Communication Ability: Effective Review of Systems Unobtainable due to endotracheal tube Physical Exam 2 Vital Signs (Past 24 Hours): Last Vital Signs Pulse 142 H 07/14/18 10:30 Resp 24 07/14/18 09:45 BP 97/73 L 07/14/18 10:31 Pulse Ox 100 07/14/18 10:31 Physical Exam: General: ill appearing male, thin, currently intubated Head: normocephalic, atraumatic Eyes: pupils equal, conjunctiva non-injected ENT: normal inspection external ears, nose, mucous membranes dry Neck: supple, trachea midline Lungs: +intubated, breath sounds present bilaterally, rhonchi CV: tachycardia, rate 146, regular rhythm, no pretibial edema Abd: normal BS, soft Ext: no cyanosis, no erythema Neuro: unresponsive Skin: warm, dry Results & Data Laboratory Results Short CBC 07/14/18 Range/Units 08:20 WBC 15.81 H (4.8-10.8) K/uL Hgb 13.0 L (14.0-18.0) g/dL Hct 39.2 L (42-52) % Plt Count 377 (130-400) K/uL BMP 07/14/18 08:20 Sodium 131 L Potassium 4.5 Chloride 91 L Carbon Dioxide 36 H BUN 12 Creatinine 0.80 Glucose 223 H Calcium 9.2 Cardiac Enzymes 07/14/18 Range/Units 08:20 CK-MB (CK-2) 6.4 H (0.5-3.6) ng/ml Troponin I 0.092 H* (0-0.045) ng/ml Liver Function 07/14/18 Range/Units 08:20 Total Bilirubin 0.4 (0.2-1) mg/dl AST 14 L (15-37) U/L ALT 15 (12-78) U/L Alkaline Phosphatase 73 (45-117) U/L Albumin 3.5 (3.4-5.0) gm/dl 07/14/18 08:53 ABG pH 7.03 L* ABG pCO2 150 H ABG pO2 197 H ABG HCO3 39 H ABG O2 Saturation 99.0 H ABG Base Excess 2.9 H Diagnostic Findings CXR: IMPRESSION: 1. Limited study secondary to positioning. 2. Advanced bullous emphysema. 3. Ill-defined subsegmental bibasilar and lateral right midlung opacities suggest atelectasis/scarring or pneumonitis. ECG Additional Comments: poor tracing, difficult to interpret. Rate 148 Supervising Physician Co-Signing Physician Notes Patient is a 62 yr with h/o severe COPD and other problems presents with respiratory distress and cough. Patient was intubated and transferred to ICU for further management. Patient had acute on chronic respiratory failure secondary to COPD exacerbation. His ABG is suggestive of respiratory acidosis , hypercapnea. CT chest suggestive of Mucoid Impaction. He underwent Bronchoscopy today. On Exam patient is sedated and Intubated, Tachycardic, Decreased breath sounds, B/L wheezes, Abd soft, No pedal edema. Patient is being treated with bronchodilators, steroids, Abx, Vent management per ICU team. Appreciate Production Control Manager Help. Hyperglycemia noted, Update Hb A1C. I personally reviewed the record. Patient is interviewed and examined at bedside. Patient's care is coordinated with Yolanda Tena PA-C. Please refer to the documentation above for details of patient's presentation and for discussion of other issues. _ (1) Respiratory failure Chronicity: acute on chronic Respiratory failure complication: hypoxia and hypercapnia Qualified Code(s): J96.21 - Acute and chronic respiratory failure with hypoxia; J96.22 - Acute and chronic respiratory failure with hypercapnia (2) Pneumonia Aspiration pneumonia type: Laterality: bilateral Lung location: lower lobe of lung Pneumonia type: due to unspecified organism Qualified Code(s): J18.1 - Lobar pneumonia, unspecified organism
[2018-07-14] MEDS ORDERED: MIDAZOLAM HCL 1 MG/ML 2ML VIAL IV PRN (10:48)
[2018-07-14] MEDS ORDERED: fentaNYL citrate 100 MCG/2 ML VIAL IV PRN (10:48)
[2018-07-14] MEDS ORDERED: GLUCAGON FOR INJ 1 MG VIAL SQ PRN (10:59)
[2018-07-14] MEDS ORDERED: ICU PROTOCOL FOR HYPERGLYCEMIA PRN (10:59)
[2018-07-14] MEDS ORDERED: CARBOHYDRATES FOR HYPOGLYCEMIA PO PRN (10:59)
[2018-07-14] MEDS ORDERED: GLUCOSE 40% GEL 15 GM TUBE PO PRN (10:59)
[2018-07-14] MEDS ORDERED: GLUCOSE 10 TABS/TUBE PO PRN (10:59)
[2018-07-14] MEDS ORDERED: DEXTROSE 50% 50 ML SYRINGE IV PRN (10:59)
[2018-07-14] MEDS ORDERED: LEVALBUTEROL HCL 0.63 MG/3 ML NEB NEB SCH (11:15)
[2018-07-14] MEDS ORDERED: IPRATROPIUM BROMIDE NEB SOLN 0.02% 2.5 ML VIAL INH SCH (11:15)
--- NOTE | 2018-07-14 11:20 | CT Scan Report ---
CT head/brain wo con CLINICAL HISTORY: 62 years-old Male with Unresponsive, blown unresponsive right pupil. Acutely alter ed mental status. TECHNIQUE: Multiple axial CT images of the head were obtained without contrast. A dose lowering tech nique was utilized adhering to the principles of ALARA. COMPARISON: None. FINDINGS: No acute intracranial hemorrhage, midline shift, intracranial mass, hydrocephalus, territorial ischem ia or abnormal extra-axial collection. Mild age-related involutional changes. Mild degree of ill-defi chrystal hypodensities about the white matter suggestive of chronic microvascular ischemic changes. 1.2 cm focal hypodensity about the left lentiform nucleus suggests remote infarction or prominent perivascu lar space. Cerebral vascular calcifications are noted. Ill-defined hypodensities about the right supe rior cerebellar hemisphere may reflect area of prior infarction. Endotracheal tube noted with secretions about the nasopharynx. Soft tissues and orbits appear unremar kable. The calvarium is intact. The paranasal sinuses, mastoid air cells, and middle ear cavities ar e clear. IMPRESSION: No acute intracranial abnormality. The above report was generated using voice recognition software. It may contain grammatical, syntax o r spelling errors. Electronically signed by: Jason Marcus M.D. 07/14/2018 11:19 AM
[2018-07-14] MEDS ORDERED: VANCOMYCIN HCL 1,250 MG in SODIUM CHLORIDE 0.9% 250 ML IV ONE (11:30)
[2018-07-14] MEDS ORDERED: INSULIN ASPART 100 UNITS/ML 3 ML PEN SC SCH (11:30)
[2018-07-14] MEDS ORDERED: VANCOMYCIN CONSULT ACTIVE PRN (11:31)
--- NOTE | 2018-07-14 11:42 | CT Scan Report ---
CT chest wo con CLINICAL HISTORY: Respiratory failure COMPARISON STUDY: 12/28/2016 CT DOSE: 861.27 mGy.cm TECHNIQUE: CT of the thorax was performed from the thoracic inlet to the lung bases. Images are revi ewed in the axial, sagittal, and coronal planes. IV contrast was not administered for this examinatio n. A dose lowering technique was utilized adhering to the principles of ALARA. FINDINGS: Thyroid: Imaged portions of the thyroid gland are normal in appearance. Thoracic aorta: The thoracic aorta is normal in course and caliber, noting standard 3 vessel arch henry sawyer. Heart: The heart is normal in size. There are coronary artery calcifications. There is a trace perica rdial effusion. Lungs and pleural spaces: There is an endotracheal tube 5.3 cm above the kendrick. There is a nasogastr ic tube which extends into the stomach. There are no pleural effusions. There is severe pulmonary emphysema. There is no lobar consolidation. There are dependent atelectatic changes. There is mild subpleural septal thickening. An element of mild pulmonary vascular congestio n/fluid overload must be considered. There is no pneumothorax. There is persistent areas of interstit ial scarring. There are minimal secretions within the trachea and proximal mainstem bronchi Mediastinum: Mediastinal lymph nodes are the upper limits of normal in size. Aracelis: There is no evidence of pathologic hilar adenopathy given the limitations of a noncontrast stud y Axilla: There is no evidence of pathologic axillary lymphadenopathy Upper abdomen: Partially visualized upper abdominal viscera is within normal limits. Skeletal structures: There are no lytic or blastic osseous lesions. IMPRESSION: 1. Endotracheal tube 5.3 cm above the kendrick 2. Nasogastric tube within the stomach 3. Severe pulmonary emphysema with areas of interstitial scarring 4. Low-density secretions within distal trachea and proximal mainstem bronchi 5. Increased interstitial markings within the right lung with mild subpleural septal edema. The findi ngs favor asymmetric interstitial edema. An interstitial infectious process could appear similar but is felt to be statistically less likely Electronically signed by: Jose Fields M.D. 07/14/2018 11:41 AM
[2018-07-14] MEDS: NORMOSOL-R 1,000 ML IV SCH ×2 (11:47→20:11)
[2018-07-14] MEDS: MIDAZOLAM HCL 125 MG/250 ML BAG IV SCH (11:50)
[2018-07-14] MEDS: fentaNYL DRIP 1,250 MCG/250 ML BAG IV SCH (11:50)
[2018-07-14] MEDS: FAMOTIDINE 20 MG in SYRINGE 3 ML IV SCH ×2 (11:51→20:10)
[2018-07-14] MEDS ORDERED: ALBUT/IPRATROP 3MG/0.5MG NEB 3 ML VIAL NEB SCH (12:00)
[2018-07-14 12:25] LABS: iSTAT Allen Test Pass; iSTAT Arterial Blood Gas HCO3 32 meg/L (19-24); iSTAT Arterial Blood Gas pCO2 80 mmHg (35-46); iSTAT Arterial Blood Gas pH 7.21 (7.35-7.45); iSTAT Carbon Dioxide 34 mEq/l (24-31); iSTAT FiO2 50 %; iSTAT Site R Radial
[2018-07-14] MEDS ORDERED: XOPENEX/ATROVENT 0.63mg/0.5MG NEB COMBO NEB SCH (14:00)
[2018-07-14] MEDS: INSULIN ASPART 100 UNITS/ML 3 ML PEN SC SCH ×2 (14:02→16:59)
[2018-07-14] MEDS: cefUROXime axetil 500 MG TAB PO SCH (14:02)
[2018-07-14] MEDS: IPRATROPIUM BROMIDE NEB SOLN 0.02% 2.5 ML VIAL NEB SCH ×4 (14:22→23:16)
[2018-07-14] MEDS: LEVALBUTEROL HCL 0.63 MG/3 ML NEB NEB SCH ×4 (14:23→23:16)
[2018-07-14] MEDS ORDERED: PIPERACILLIN/TAZOBACTAM 4.5 GM in DEXTROSE 5% 100 ML IV SCH (16:00)
[2018-07-14] MEDS ORDERED: methylPREDNISolone 40 MG in SYRINGE 0 ML IV SCH (16:00)
[2018-07-14] MEDS: ENOXAPARIN INJ 40 MG/0.4 ML SYR SQ SCH (16:43)
[2018-07-14] MEDS: methylPREDNISolone 40 MG in SYRINGE 0 ML IV SCH ×2 (16:43→20:10)
[2018-07-14 16:44] LABS: iSTAT Allen Test Pass; iSTAT Arterial Blood Gas HCO3 29 meg/L (19-24); iSTAT Arterial Blood Gas pCO2 58 mmHg (35-46); iSTAT Arterial Blood Gas pH 7.31 (7.35-7.45); iSTAT Carbon Dioxide 31 mEq/l (24-31); iSTAT FiO2 50 %; iSTAT Site R Radial
--- NOTE | 2018-07-14 17:53 | Critical Care Consultation ---
Date of Consultation July 14, 2018 Assessment & Plan (1) COPD (chronic obstructive pulmonary disease): Impression: 1. Acute on chronic hypercapnic and hypoxic respiratory failure requiring intubation. 2. Severe COPD, gold level 3, in exacerbation. 3. No evidence of pneumonia this patient, however mucoid impaction is bilateral. 4. History of liver cirrhosis. 5. Non-ST elevation TN, type II, demand TN. Plan: 1. Ventilator management. 2. Continue bronchodilators. 3. Systemic steroids. 4. I would discontinue broad-spectrum antibiotics. 5. I will start the patient only on cefuroxime. 6. Bronchoscopy was done and mucoid impaction noted in multiple subsegments, suction to clear. 7. Continue with DVT and GI prophylaxis. 8. Bronchoscopy specimen for culture. 9. Repeat ABG after intubation. 10. Vap bundle. 11. Continue to trend troponin. 12. Spontaneous breathing trial hopefully in the next 24 hours. 13. Discussed with the staff on rounds and details. Thank you, critical care time spent with the patient was 60 minutes excluding procedure time. History of Present Illness Reason for Consultation: Acute respiratory failure Requesting Physician: Dr. Zaragoza Attending Physician: Grey Lara MD History of Present Illness Dear Dr. Crockett: Thank you for your kind referral Mr. Shirley to critical care service. This is 62-year-old gentleman with history of severe COPD, dependent on the oxygen, incarcerated inmate, history of hepatitis B, liver cirrhosis, brought to the ED with increased shortness of breath accompanied with persistent cough. The patient was severely agitated due to respiratory failure and failed noninvasive positive pressure ventilation. The patient was intubated due to respiratory failure and transferred to the ICU for further management. In the ICU, the patient was not able to give any review of system but he was able to answer his questions with yes and no nodding his head. The patient did not have any hemoptysis reported. No reported chest pain even from before. He did not have any increased rash, he appeared cachectic, unable to comment on his weight loss. The patient was shortly after that sedated due to dyssynchrony with the ventilator. Allergies Allergy/AdvReac Type Severity Reaction Status Date / Time No Known Allergies Allergy Unverified 07/14/18 08:44 Home Medications Home Medications Medication Instructions Recorded Confirmed Type fluticasone-salmeterol [Advair 1 inh INHALATION BID 03/19/18 07/14/18 History Diskus] montelukast [Singulair] 10 mg PO QAM 03/19/18 07/14/18 History spironolactone [Aldactone] 25 mg PO QAM 03/19/18 07/14/18 History ipratropium-albuterol 3 ml INHALATION QID 7 Days #126 ml 03/26/18 07/14/18 Rx guaifenesin 400 mg PO TID 07/14/18 07/14/18 History levalbuterol tartrate [Xopenex HFA] 2 inh INHALATION TID PRN 07/14/18 07/14/18 History prednisone 40 mg PO DAILY 07/14/18 07/14/18 History tiotropium bromide [Spiriva with 1 cap INHALATION DAILY 07/14/18 07/14/18 History HandiHaler] Patient History Medical History Tobacco use (Chronic) GERD (gastroesophageal reflux disease) (Chronic) Cirrhosis (Chronic) Hepatitis B (Chronic) COPD (chronic obstructive pulmonary disease) (Chronic) HTN (hypertension) (Chronic) Pneumonia (Resolved) Tachycardia (Resolved) COPD exacerbation (Resolved) Acute respiratory failure with hypoxia (Resolved) COPD (chronic obstructive pulmonary disease) Cirrhosis of liver GERD (gastroesophageal reflux disease) History of hepatitis B Hypertension Tobacco abuse Family History Other Diabetes Heart disease Kidney disease Social History Current Living Situation: Other Current Living Situation Comment: corectional facility Other Information That Helps Us Care for You: No Feels Safe at Home: No Is there a partner from a previous relationship who is making you feel unsafe now?: No Smoking Status: Current every day smoker Tobacco Type: cigarettes Cigarettes per Day: 24 Hx Alcohol Use: No Hx Substance Use: No Beliefs That Will Affect Care: Jewish Jewish Beliefs: non-restorationist Yarsanism" Preferred Language: Wolof Communication Ability: Effective Review of Systems Review of system irregularly is not obtainable in this patient who is intubated. Physical Exam 2 Vital Signs (Past 24 Hours): Last Vital Signs Temp 38.5 C H 07/14/18 09:25 Pulse 112 H 07/14/18 16:55 Resp 24 07/14/18 16:55 BP 97/73 L 07/14/18 10:31 Pulse Ox 96 07/14/18 16:55 Physical Exam: His vital signs are stable, except for the heart rate was 140 and MAT, ET tube is in place, S1-S2 tachycardic, distant breath sounds with scattered wheezing, abdomen is scaphoid and benign, no edema, cachexia. Neurologically he is non-focal. Noted that the patient has asymmetry of his pupils, related to benzodiazepine most likely. Skin changes were noted. Oral mucosa appears with poor hygiene. Results & Data Laboratory Results Labs were reviewed which showed leukocytosis, and his ABG with a pH of 7.0. The rest of his chemistry are acceptable except for a bicarb of 36. Reviewed personally. Diagnostic Findings Chest x-ray and a CAT scan of the chest both were reviewed which showed severe COPD changes, multiple areas of mucoid impaction. Small sub-pleuritic lesion.
--- NOTE | 2018-07-14 17:55 | Procedure Note ---
Procedure Note Date of Service July 14, 2018 Note Bronchoscopy was done at the bedside, the patient was already intubated, consent was deferred as the procedure was done emergently due to mucoid impaction the patient requiring intubation. The patient monitored in the procedure with OR style of monitoring, the procedure was done in room 6 in the ICU. Timeout was performed by the nursing staff, the patient was already on fentanyl and Versed drip for sedation, the bronchoscope passed through the blue adapter and through #7-1/2 ET tube, and the following findings noted: 1. The ET tube was 6 cm above the kendrick, adjusted to 3 cm. 2. Large amount of secretions taken over the subsegmental bronchus of the right lower lobe and left lower lobe. 3. Specimen was obtained from the left lower lobe and sent for culture. 4. Lidocaine was used topical due to vigorous cough, total of 10 mL 1% lidocaine. Was used. 5. After completing the procedure, it was noted after inspection of the mucosa that there is some hemorrhagic mucosa mainly at the takeoff of the right lower lobe subsegment. Etiology likely related to cough. No immediate complication, patient tolerated the procedure very well. Thank you
[2018-07-15] MEDS ORDERED: VANCOMYCIN HCL 750 MG in SODIUM CHLORIDE 0.9% 250 ML IV SCH
[2018-07-15] MEDS: cefUROXime axetil 500 MG TAB PO SCH ×3 (00:01→20:09)
[2018-07-15] MEDS: methylPREDNISolone 40 MG in SYRINGE 0 ML IV SCH ×4 (01:03→20:08)
[2018-07-15] MEDS: IPRATROPIUM BROMIDE NEB SOLN 0.02% 2.5 ML VIAL NEB SCH ×6 (03:39→23:15)
[2018-07-15] MEDS: LEVALBUTEROL HCL 1.25 MG/3 ML NEB NEB SCH ×6 (03:39→23:15)
[2018-07-15] MEDS: fentaNYL DRIP 1,250 MCG/250 ML BAG IV SCH (04:29)
[2018-07-15 05:02] LABS: Hematocrit (blood only) 36.7 % (42-52); Hemoglobin 12.2 g/dL (14.0-18.0); Immature Granulocytes # (auto) 0.02 K/uL (0.00-0.02); Immature Granulocytes % (auto) 0.3 %; Lymphocytes # (auto) 0.36 K/uL (1.2-3.4); Lymphocytes % (auto) 6.1 %; Mean Corpuscular Hgb Conc 33.2 g/dL (32-36); Mean Corpuscular Volume 91.1 fL (80-100); Mean Platelet Volume 9.5 fL (7.4-10.4); Monocytes # (auto) 0.44 K/uL (0.11-0.59); Monocytes % (auto) 7.5 %; Neutrophils # (auto) 5.06 K/uL (1.4-6.5); Neutrophils % (auto) 86.1 %; Platelet Count 244 K/uL (130-400); RDW Coefficient of Variation 13.7 % (11.5-14.5); RDW Standard Deviation 45.6 fL (36.4-46.3); Red Blood Count 4.03 M/uL (4.7-6.1); White Blood Count 5.88 K/uL (4.8-10.8)
[2018-07-15 05:29] LABS: BUN Creatinine Ratio 24.4 (10-20); Calcium 8.3 mg/dl (8.5-10.1); Creatinine Clr Calc Pharmacy 60.1 ml/min; Est GFR (African American) 89.2; Est GFR (Non-African American) 76.9; Magnesium 2.1 mg/dl (1.8-2.4); Phosphorus 4.4 mg/dl (2.5-4.9); Potassium 4.7 mmol/L (3.5-5.1)
[2018-07-15] MEDS: INSULIN ASPART 100 UNITS/ML 3 ML PEN SC SCH ×4 (05:56→18:15)
[2018-07-15 06:43] LABS: Estimated Average Glucose 108 mg/dl; Hemoglobin A1C 5.4 % (4.5-5.6)
[2018-07-15] MEDS: NORMOSOL-R 1,000 ML IV SCH (07:15)
[2018-07-15] MEDS: FAMOTIDINE 20 MG in SYRINGE 3 ML IV SCH ×2 (09:15→20:08)
--- NOTE | 2018-07-15 11:14 | Hospitalist Progress Note ---
Date of Service July 15, 2018 Assessment & Plan (1) Acute respiratory failure with hypoxia: Sent from [facility]al facility/senior care at [facility] with acute respiratory failure/hypoxia was lethargic/intubated Patient was intubated in ER for airway protection Remains on mechanical ventilation, in ICU 107 Appreciate input from pulmonary/critical care Status post bronchoscopy yesterday 07/14/2018 Showed thick secretions /bilateral mucous plugging, cleared with suction started empirically on cefuroxime Follow blood culture, sputum culture Possible cause of respiratory failure: COPD exacerbation Prior history of advanced COPD: Gold stage III, Patient is continued with IV steroids, nebulizer treatment, respiratory support with mechanical ventilation (2) Non-ST elevated myocardial infarction (non-STEMI): Presented with hypoxia, shortness of breath, leading to respiratory failure elevated troponins 0.092-1.210-1.150 Echo: 07/14/2018 1.Normal LV size with severely reduced systolic function: EF 20-25% global akinesis 2. Normal right ventricular size with severely reduced systolic function. The basal portion of the right ventricle free wall appears to be normally contracted , but otherwise right ventricle appears severely hypokinetic to akinetic 3. Small pericardial effusion, along the right ventricular free wall . No echocardiographic evidence of tamponade physiology. Unknown baseline Possible type II non-ST elevated NM/demand ischemia in the setting of respiratory failure hypoxia? Need to rule out ACS Cardiology consulted We will start patient on aspirin, no beta-kyaw- worsening of bronchospasms in setting of COPD exacerbation check fasting lipid Follow cardiology recommendation Present on Admission?: Yes (3) Acute systolic CHF (congestive heart failure), NYHA class 2: Possible severe ischemic cardiomyopathy with EF of 20-25%, with global hypokinesis Presents with shortness of breath, chest x-ray shows volume overload Lung auscultation coarse Rales bilaterally Will DC IV fluids Monitor volume status, intake output IV Lasix not ordered, no evidence of volume overload Cardiology consulted, will follow recommendation Present on Admission?: Yes (4) COPD (chronic obstructive pulmonary disease): Baseline advanced COPD, recent admission few months back at [facility] with COPD exacerbation Presented with hypoxia, respiratory failure, due to COPD exacerbation requiring mechanical ventilation, bronchoscopy evaluation Continue with IV steroids empiric antibiotic Nebulizer treatment as per mechanical ventilation/ICU protocol Appreciate input from pulmonary/critical care Present on Admission?: Yes (5) GERD (gastroesophageal reflux disease): Continue PPI (6) Hyperglycemia: Monitor blood sugar, in setting of high dose of IV steroids Pharmacy glycemic management per ICU protocol check Hb A1c CODE STATUS: Full code DVT prophylaxis: Subcu heparin, moderate to high risk secondary to respiratory failure, obtunded, on mechanical ventilation Disposition: Prisoner at [facility] Follows with senior care physician Dr. Andrews plan is to return back to [facility] when medically stable Present on Admission?: Yes Subjective Patient remains intubated, Has been off sedationIV Versed drip for almost 1 hour Remains unresponsive Physical Exam 2 Vital Signs (Past 24 Hours): Last Vital Signs Temp 36.7 C 07/15/18 03:00 Pulse 93 H 07/15/18 11:03 Resp 24 07/15/18 11:03 BP 89/63 L 07/15/18 03:00 Pulse Ox 96 07/15/18 11:03 Constitutional: + ill appearing Intubated, Eyes: Bilateral pinpoint, reactive to light ENMT: Mechanically ventilated ET tube/NG tube present Neck: normal visual inspection and trachea midline Respiratory: Auscultation: + crackles and + rales Mechanically ventilated, coarse rales noted bilaterally Cardiovascular: Rate/Rhythm: regular rate and regular rhythm Vessels: no JVD Extremities: no pedal edema and no edema Musculoskeletal: Sedated on vent Neurologic: + obtunded On ventilator, remains nonresponsive
[2018-07-15] MEDS ORDERED: ASPIRIN 81 MG CHEW ONE (11:55)
[2018-07-15] MEDS: ASPIRIN 81 MG CHEW NG SCH (11:56)
[2018-07-15] MEDS: ENOXAPARIN INJ 40 MG/0.4 ML SYR SQ SCH (11:56)
[2018-07-15] MEDS: MIDAZOLAM HCL 125 MG/250 ML BAG IV SCH (17:30)
--- NOTE | 2018-07-15 18:19 | Critical Care Progress Note ---
Date of Service July 15, 2018 Assessment & Plan (1) COPD (chronic obstructive pulmonary disease): Impression: 1. Acute on chronic hypercapnic and hypoxic respiratory failure requiring intubation. 2. Severe COPD, gold level 3, in exacerbation. 3. No evidence of pneumonia this patient, however mucoid impaction is bilateral. 4. History of liver cirrhosis. 5. Non-ST elevation AR, type II, demand AR. Plan: 1. Ventilator management. Failed spontaneous breathing trial. 2. Continue bronchodilators. 3. Systemic steroids. 4. Continue cefuroxime. 5. OG tube feeding, appreciate nutrition consult. 6. No bacteriology identified on the bronchoscopy. 7. Continue with DVT and GI prophylaxis. 8. Core measures for the ICU has been met. 9. ABG was reviewed. 10. Vap bundle. 11. Echocardiogram showed EF of 20%, unknown previous work up for his cardiac status. 12. Cardiology consult, Dr. Obrien. Appreciated. 13. Discussed with the staff on rounds and details. Thank you, critical care time spent with the patient was 60 minutes excluding procedure time. Subjective The patient failed CPAP after short trial not even 5 minutes. He open his eyes , could not follow any commands. Review of system is not obtainable as the patient was intubated and sedated. Physical Exam 2 Vital Signs (Past 24 Hours): Last Vital Signs Temp 36.7 C 07/15/18 12:00 Pulse 97 H 07/15/18 16:57 Resp 24 07/15/18 16:57 BP 139/89 07/15/18 13:00 Pulse Ox 94 07/15/18 16:57 Physical Exam: Vital signs are stable, cachectic patient, no JVD, S1-S2 regular rate and rhythm, distant breath sounds bilaterally, abdomen is benign, no edema. Neurologically difficult to assess. No skin rash. Oral mucosa appears normal. Results & Data Laboratory Results Labs were reviewed which showed no leukocytosis, BUN and creatinine are stable, troponin slightly elevated Diagnostic Findings No new imaging.
[2018-07-16] MEDS: fentaNYL DRIP 1,250 MCG/250 ML BAG IV SCH ×2 (00:10→19:29)
[2018-07-16] MEDS: INSULIN ASPART 100 UNITS/ML 3 ML PEN SC SCH ×4 (00:11→18:11)
[2018-07-16] MEDS: methylPREDNISolone 40 MG in SYRINGE 0 ML IV SCH ×2 (02:29→07:51)
[2018-07-16] MEDS: IPRATROPIUM BROMIDE NEB SOLN 0.02% 2.5 ML VIAL NEB SCH ×6 (03:15→23:16)
[2018-07-16] MEDS: LEVALBUTEROL HCL 1.25 MG/3 ML NEB NEB SCH ×6 (03:16→23:16)
[2018-07-16 05:22] LABS: Hematocrit (blood only) 35.9 % (42-52); Hemoglobin 11.8 g/dL (14.0-18.0); Immature Granulocytes # (auto) 0.03 K/uL (0.00-0.02); Immature Granulocytes % (auto) 0.4 %; Lymphocytes # (auto) 0.32 K/uL (1.2-3.4); Lymphocytes % (auto) 4.3 %; Mean Corpuscular Hgb Conc 32.9 g/dL (32-36); Mean Platelet Volume 9.7 fL (7.4-10.4); Monocytes % (auto) 10.8 %; Neutrophils # (auto) 6.26 K/uL (1.4-6.5); Neutrophils % (auto) 84.5 %; Platelet Count 238 K/uL (130-400); RDW Standard Deviation 46.2 fL (36.4-46.3); Red Blood Count 3.99 M/uL (4.7-6.1); White Blood Count 7.41 K/uL (4.8-10.8)
[2018-07-16 05:51] LABS: BUN Creatinine Ratio 48.7 (10-20); Calcium 8.5 mg/dl (8.5-10.1); Creatinine Clr Calc Pharmacy 85.9 ml/min; Est GFR (African American) 115.7; Est GFR (Non-African American) 99.9; Magnesium 2.5 mg/dl (1.8-2.4); Phosphorus 2.6 mg/dl (2.5-4.9); Potassium 4.7 mmol/L (3.5-5.1)
[2018-07-16] MEDS: MIDAZOLAM HCL 125 MG/250 ML BAG IV SCH (07:47)
[2018-07-16] MEDS: cefUROXime axetil 500 MG TAB PO SCH ×2 (07:50→20:52)
[2018-07-16] MEDS: ASPIRIN 81 MG CHEW NG SCH (07:51)
--- NOTE | 2018-07-16 09:12 | Cardiology Consultation ---
Date of Consultation July 16, 2018 Assessment & Plan (1) Respiratory failure: This was most likely the result of a combination of severe COPD from cigarette smoking along with heart failure due to a cardiomyopathy most likely ischemic in nature. (2) COPD (chronic obstructive pulmonary disease): COPD with CO2 retention (3) Tobacco use: (4) Elevated troponin: I do not believe that this was due to ACS. I think that he had a type II elevation due to the stress of respiratory failure and hypoxia. (5) Biventricular heart failure: Echocardiogram indicates biventricular heart failure which should be managed medically. Currently the patient does have good urine output and is hemodynamically stable however, in order for him to progress and come off the ventilator you may require central monitoring with a [place]-Hum[place]rey catheter to help manage medications. History of Present Illness Attending Physician: Magali Banegas MD History of Present Illness This is a 62-year-old male patient who developed respiratory failure due to hypercapnia and hypoxia requiring emergent intubation and admission to the ICU. The patient is incarcerated so his history is limited. 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 After admission he had an echocardiogram which reveals a cardiomyopathy with biventricular heart failure and an estimated left ventricular ejection fraction of around 20%. His EKG suggests a previous anterior wall myocardial infarction and it would not be unlikely that he has ischemic heart disease. He did have a borderline elevation in his cardiac troponins on admission however, I believe that this was a type II elevation due to the stress of respiratory failure and hypoxia and not due to acute coronary syndrome. He remains intubated and clinically stable on a ventilator. Allergies Allergy/AdvReac Type Severity Reaction Status Date / Time No Known Allergies Allergy Unverified 07/14/18 08:44 Home Medications Home Medications Medication Instructions Recorded Confirmed Type fluticasone-salmeterol [Advair 1 inh INHALATION BID 03/19/18 07/14/18 History Diskus] montelukast [Singulair] 10 mg PO QAM 03/19/18 07/14/18 History spironolactone [Aldactone] 25 mg PO QAM 03/19/18 07/14/18 History ipratropium-albuterol 3 ml INHALATION QID 7 Days #126 ml 03/26/18 07/14/18 Rx guaifenesin 400 mg PO TID 07/14/18 07/14/18 History levalbuterol tartrate [Xopenex HFA] 2 inh INHALATION TID PRN 07/14/18 07/14/18 History prednisone 40 mg PO DAILY 07/14/18 07/14/18 History tiotropium bromide [Spiriva with 1 cap INHALATION DAILY 07/14/18 07/14/18 History HandiHaler] Patient History Medical History Tobacco use (Chronic) GERD (gastroesophageal reflux disease) (Chronic) Cirrhosis (Chronic) Hepatitis B (Chronic) COPD (chronic obstructive pulmonary disease) (Acute) HTN (hypertension) (Chronic) Pneumonia (Resolved) Tachycardia (Resolved) COPD exacerbation (Resolved) Acute respiratory failure with hypoxia (Acute) COPD (chronic obstructive pulmonary disease) Cirrhosis of liver GERD (gastroesophageal reflux disease) History of hepatitis B Hypertension Tobacco abuse Family History Other Diabetes Heart disease Kidney disease Social History Current Living Situation: Other [facility] Other Information That Helps Us Care for You: No Feels Safe at Home: No Is there a partner from a previous relationship who is making you feel unsafe now?: No Smoking Status: Current every day smoker Tobacco Type: cigarettes Cigarettes per Day: 24 Hx Alcohol Use: No Hx Substance Use: No Beliefs That Will Affect Care: Lutheran Lutheran Beliefs: non-judaism Confucianist" Preferred Language: Israeli Communication Ability: Effective Review of Systems Review of Systems: See HPI for pertinent positives. All other 10 point review of systems are negative. Physical Exam 2 Vital Signs (Past 24 Hours): Last Vital Signs Temp 36.6 C 07/16/18 08:00 Pulse 101 H 07/16/18 08:00 Resp 24 07/16/18 08:01 BP 108/74 07/16/18 08:00 Pulse Ox 90 07/16/18 08:00 Physical Exam: General: no acute distress and stated age Head: normocephalic, no masses, lesions, tenderness or abnormalities Eyes: conjunctiva are pink and non-injected, sclera clear Neck: supple, no adenopathy, no bruits, normal jugular venous pulse, no hepatojugular reflux Chest: normal shape and normal respiratory effort Lungs: Wheezing and rhonchi throughout. Cardiac Exam: - regular rate & rhythm, no murmurs gallops or rubs - normal S1, normal S2 Pulses: 2(+) throughout Abdomen: abdomen soft, non-tender, no abnormal masses and no hepatosplenomegaly Musculoskeletal: no gait disturbance, no joint inflammation, no deforming arthritis Extremities: no edema and no cyanosis Neuro: grossly normal exam Results & Data Laboratory Results Laboratory Results - last 24 hr 07/15/18 07/15/18 07/16/18 11:51 18:03 00:09 WBC RBC Hgb Hct MCV MCH MCHC RDW Std Deviation RDW Coeff of Leann Plt Count MPV Immature Gran % (Auto) Neut % (Auto) Lymph % (Auto) [place] % (Auto) Eos % (Auto) Baso % (Auto) Immature Gran # (Auto) Neut # (Auto) Lymph # (Auto) [place] # (Auto) Eos # (Auto) Baso # (Auto) Sodium Potassium Chloride Carbon Dioxide Anion Gap BUN Creatinine Est Cr Clr Drug Dosing Est GFR ( Amer) Est GFR (Non-Af Amer) BUN/Creatinine Ratio Glucose POC Glucose 127 H 149 H 130 H Calcium Phosphorus Magnesium 07/16/18 07/16/18 07/16/18 05:02 05:02 05:04 WBC 7.41 RBC 3.99 L Hgb 11.8 L Hct 35.9 L MCV 90.0 MCH 29.6 MCHC 32.9 RDW Std Deviation 46.2 RDW Coeff of Leann 14.0 Plt Count 238 MPV 9.7 Immature Gran % (Auto) 0.4 Neut % (Auto) 84.5 Lymph % (Auto) 4.3 [place] % (Auto) 10.8 Eos % (Auto) 0.0 Baso % (Auto) 0.0 Immature Gran # (Auto) 0.03 H Neut # (Auto) 6.26 Lymph # (Auto) 0.32 L [place] # (Auto) 0.80 H Eos # (Auto) 0.00 Baso # (Auto) 0.00 Sodium 133 L Potassium 4.7 Chloride 96 L Carbon Dioxide 32 Anion Gap 5.0 BUN 35 H Creatinine 0.71 D Est Cr Clr Drug Dosing 85.9 Est GFR ( Amer) 115.7 Est GFR (Non-Af Amer) 99.9 BUN/Creatinine Ratio 48.7 H Glucose 127 H POC Glucose 126 H Calcium 8.5 Phosphorus 2.6 D Magnesium 2.5 H Medications Administered Current Inpatient Medications Aspirin (Aspirin Chew) 81 mg NG DAILY [facility] Stop: 08/14/18 11:44 Last Admin: 07/16/18 07:51 Dose: 81 mg Cefuroxime Axetil (Ceftin) 500 mg PO Q12H SIENNA Stop: 07/21/18 11:59 Last Admin: 07/16/18 07:50 Dose: 500 mg Dextrose (Dextrose 50%) 25 - 50 ml IV UD PRN; Protocol PRN Reason: Hypoglycemia Protocol Stop: 08/13/18 10:58 Enoxaparin Sodium (Lovenox) 40 mg SQ Q24H SIENNA Stop: 08/13/18 11:59 Last Admin: 07/15/18 11:56 Dose: 40 mg Fentanyl Citrate (Fentanyl Citrate) 50 mcg IV Q2H PRN PRN Reason: Moderate Pain (4,5,6) Stop: 07/28/18 10:47 Glucagon (Glucagen) 1 mg SQ UD PRN; Protocol PRN Reason: Hypoglycemia Protocol Stop: 08/13/18 10:58 Glucose (Glucose 40%) 15 - 30 gm PO UD PRN; Protocol PRN Reason: Hypoglycemia Protocol Stop: 08/13/18 10:58 Glucose (Dex4 Glucose) 4 - 8 tabs PO UD PRN; Protocol PRN Reason: Hypoglycemia Protocol Stop: 08/13/18 10:58 Famotidine 20 mg/ Syringe 5 mls @ 2.5 mls/min IV Q12 SIENNA Stop: 08/13/18 11:29 Last Admin: 07/15/18 20:08 Dose: 2.5 mls/min Midazolam HCl (Versed) 125 mg in 250 mls @ 4 mls/hr IV .Q0M SIENNA; Protocol Stop: 08/13/18 11:44 Last Admin: 07/16/18 07:47 Dose: 2 mg/hr, 4 mls/hr Fentanyl Citrate (Fentanyl Drip) 1,250 mcg in 250 mls @ 15 mls/hr IV .Q0M SIENNA; Protocol Stop: 07/28/18 11:44 Last Titration: 07/16/18 06:52 Dose: 75 mcg/hr, 15 mls/hr Methylprednisolone 40 mg/ (Syringe) 0.64 mls @ 1.5 mls/min IV Q6H SIENNA Stop: 08/13/18 13:59 Last Admin: 07/16/18 07:51 Dose: 1.5 mls/min Insulin Aspart (Novolog Flexpen) 0 units SC Q6H SIENNA Stop: 08/13/18 11:59 Last Admin: 07/16/18 05:11 Dose: Not Given Ipratropium [place] (Atrovent 0.02% 0.5mg/2.5ml) 0.5 mg NEB Q4R SIENNA Stop: 08/13/18 11:59 Last Admin: 07/16/18 07:25 Dose: 0.5 mg Levalbuterol HCl (Xopenex 1.25mg/3ml Neb) 1.25 mg NEB Q4R SIENNA Stop: 08/13/18 11:59 Last Admin: 07/16/18 07:25 Dose: 1.25 mg Midazolam HCl (Versed) 2 mg IV Q2H PRN PRN Reason: agitation/anxiety Stop: 08/13/18 10:47 Miscellaneous (Icu Protocol For Hyperglycemia) 1 ea N/A PRN PRN; Protocol PRN Reason: Hyperglycemia Protocol Stop: 07/16/18 10:58 Miscellaneous (Carbohydrates For Hypoglycemia) 15 - 30 gm PO UD PRN PRN Reason: Hypoglycemia Treatment Stop: 08/13/18 10:58 _ (1) Respiratory failure Chronicity: acute on chronic Respiratory failure complication: hypoxia and hypercapnia Qualified Code(s): J96.21 - Acute and chronic respiratory failure with hypoxia; J96.22 - Acute and chronic respiratory failure with hypercapnia
[2018-07-16] MEDS ORDERED: FUROSEMIDE 20 MG in SYRINGE 0 ML IV STA (10:43)
--- NOTE | 2018-07-16 12:04 | XRay Report ---
XR chest 1V portable CLINICAL HISTORY: 62 years-old Male presenting with Respiratory failure; intubated, new SWAN cath. TECHNIQUE: Portable semiupright AP view of the chest was obtained. COMPARISON: 07/14/2018. FINDINGS: Endotracheal tube terminates in the mid thoracic trachea over 6 cm from the kendrick. A nasogastric tub e is in place descending below the diaphragm, terminus not visualized. Interval placement of a right internal jugular [place]-Humphrey catheter, which terminates in the region of the right ventricular outlet. Numerous overlying external leads degrade image quality. Atherosclerosis of the aorta. Cardiac and mediastinal silhouette narrowed. Severe hyperinflation. Het erogeneity of lung parenchyma with irregular reticular opacities in the right upper lung slightly dec reased from prior. No new focal opacity. No large effusion or pneumothorax. Osseous structures normal . IMPRESSION: 1. Right IJ [place]-Humphrey catheter terminates in the region of the right ventricular outlet. 2. Tubes appropriately positioned. 3. Severe emphysema. 4. Stable to slight interval decrease in right upper lung reticular opacities. Electronically signed by: aWyne Rojo M.D. 07/16/2018 12:03 PM
--- NOTE | 2018-07-16 12:13 | Critical Care Progress Note ---
Date of Service July 16, 2018 Assessment & Plan (1) COPD (chronic obstructive pulmonary disease): Impression: 1. Acute on chronic hypercapnic and hypoxic respiratory failure requiring intubation. 2. Severe COPD, gold level 3, in exacerbation. 3. No evidence of pneumonia this patient, however mucoid impaction is bilateral. 4. History of liver cirrhosis. 5. Non-ST elevation RI, type II, demand RI. 6. Cardiomyopathy with EF of 20%. Plan: 1. Ventilator management. Failed spontaneous breathing trial. Will repeat daily. 2. Continue bronchodilators. 3. Systemic steroids. I will increase the dose to 80 mg every 6 hours. 4. Continue cefuroxime. 5. OG tube feeding, appreciate nutrition consult. I will start the tube feeding at goal. 6. Appreciate Dr. Obrien input, recommended PA catheter which was placed, his numbers are consistent with cardiomyopathy, PA pressure was 42/24, wedge pressure was 21, cardiac output is pending. 7. Continue with DVT and GI prophylaxis. 8. Core measures for the ICU has been met. 9. I will obtain mixed venous blood gas . 10. Vap bundle. 11. Hemodynamic profile every shift. 12. I will start the patient on milrinone infusion after obtaining hemodynamic profile. 13. A line placement. 14. Discussed with the staff on rounds and details, Critical care time spent with the patient was 45 minutes excluding procedure time. Subjective The patient continued to failed spontaneous breathing trial, he open his eyes and follow commands, agreed to a catheter to be placed into his heart after I discussed it with him. The patient given his advanced heart the lung disease, he would be a challenge to get him off the ventilator. Physical Exam 2 Vital Signs (Past 24 Hours): Last Vital Signs Temp 36.6 C 07/16/18 08:00 Pulse 101 H 07/16/18 08:00 Resp 24 07/16/18 08:01 BP 108/74 07/16/18 08:00 Pulse Ox 90 07/16/18 08:00 Physical Exam: Vital signs are borderline, his peak airway pressures has been elevated, he had positive JVD, S1-S2 regular rate and rhythm, lungs with bilateral wheezing, abdomen is scaphoid and benign, no edema, cachexia, neurologically difficult to assess as the patient was intubated. Results & Data Laboratory Results Labs were reviewed which showed stable CBC, BMP, Diagnostic Findings Chest x-ray after placement of PA catheter showed hyperinflated lungs, the PA catheter tip at the right pulmonary artery, small pleural effusion bilaterally, right upper lobe infiltrate is improving.
[2018-07-16] MEDS: methylPREDNISolone 80 MG in SYRINGE 0 ML IV SCH ×2 (12:21→17:41)
[2018-07-16] MEDS: ENOXAPARIN INJ 40 MG/0.4 ML SYR SQ SCH (12:22)
--- NOTE | 2018-07-16 12:24 | Procedure Note ---
Procedure Note Date of Service July 16, 2018 Note PA catheter was placed due to the patient being an severe cardiomyopathy with biventricular heart failure, discussed with Dr. Obrien cardiology, agreed to the procedure, discussed with the patient, agreed to the procedure as well. The patient was vented. The patient was placed in supine position, under strict sterile field, using posterior IJ approach, the skin was prepped with chlorhexidine, injected with 5 mL of 1% lidocaine, one attempt, Seldinger technique was used, no scalpel but only a dilator and introducer was inserted without difficulty, with dilator and wire being removed, the side port was flushed with saline, and the introducer was secured with surgical suture. The dressing was changed and the gloves were changed as well using strict sterile field, the patient was monitored in the ICU bed 6, with ICU style of monitoring. Life [place] PA catheter was placed after placing a sheet over it. Inserted into 20 cm initially and then the balloon was inflated. CVP was reported to be 11. RV was noted at 45/5. And PA waves were noted with decrotic notch, pressures were 42/24, pulmonary artery occlusive pressure was 21. Other numbers are pending. The sheath was threaded over the catheter and secured in place. The skin was prepped with chlorhexidine and covered with surgical dressing. Chest x-ray showed no pneumothorax. The tip of the PA catheter was at the right main pulmonary artery. Tolerated the procedure very well. No immediate complication. We will obtain hemodynamic profile every 12 hours. Thank you for the nursing assistance in the timeout.
[2018-07-16] MEDS: FAMOTIDINE 20 MG in SYRINGE 3 ML IV SCH ×2 (12:34→20:52)
[2018-07-16] MEDS ORDERED: MILRINONE LACTATE/D5W 20,000 MCG/100 ML BAG IV SCH (13:00)
[2018-07-16 15:25] LABS: iSTAT Arterial Blood Gas pCO2 87 mmHg (35-46); iSTAT Hematocrit 38 % (42-52); iSTAT Hemoglobin 12.9 g/dl (14.0-18.0); iSTAT Potassium 4.3 mEq/L (3.3-5.0); iSTAT Sodium 132 mEq/L (135-144)
[2018-07-16 15:26] LABS: iSTAT Arterial Bld Gas O2 Sat 99; iSTAT Arterial Blood Gas HCO3 34 meg/L (19-24); iSTAT Carbon Dioxide 36 mEq/l (24-31)
[2018-07-16 15:27] LABS: iSTAT Sample Type Arterial
--- NOTE | 2018-07-16 15:43 | Procedure Note ---
Procedure Note Date of Service July 16, 2018 Note ARTERIAL LINE PROCEDURE NOTE: Procedure: Arterial line placement Attending: Dr. Lima Provider: PRANAV Aly (Dwayne Mott PA-C was present during the entire procedure, supervised and assisted during the procedure) Time: July 16, 2018 3:15 PM Indication: Monitoring with [place]-Humphrey cath Anesthesia: Not required, patient on Versed drip and as needed fentanyl, as patient intubated Per Dr. Lima, implied consent secondary to [place] catheter placement. A time-out was completed verifying correct patient, procedure, site, positioning , and implant(s) or special equipment if applicable. Allens test was performed to ensure adequate perfusion. Patients right wrist was prepped and draped in the usual sterile fashion. A 20g Arrow arterial line was introduced into the radial artery with good blood flow, unable to advance wire or catheter. Catheter was removed. Second attempt was made with sterile 20-gauge catheter, again into the right radial artery with good blood flow. Catheter was threaded , and the needle was removed with appropriate blood return. Good waveform was observed. The patient tolerated the procedure well. Confirmation of placement by waveform. Catheter was sutured to secure placement. Blood Loss: Minimal Complications: None
[2018-07-16] MEDS ORDERED: methylPREDNISolone 80 MG in SYRINGE 0 ML IV SCH (16:00)
--- NOTE | 2018-07-16 16:30 | Procedure Note ---
Procedure Note Date of Service July 16, 2018 Note ARTERIAL LINE PROCEDURE NOTE: Procedure: Arterial Line Placement Attending: Dr. Lima Time of procedure: 15:15 APC: Dwayne Mott PA-C. Assisted by PRANAV Aly Indication: Monitoring due to [place] Humphrey Catheter Anesthesia: None Implied consent as no family available. Instructed to place arterial line per Dr. Lima. A time-out was completed verifying correct patient, procedure, site, positioning , and implant(s) or special equipment if applicable. Patients right wrist was prepped and draped in the usual sterile fashion. Radial artery was easily palpated. A 20g Arrow arterial line was introduced into the right radial artery by PRANAV Aly. There was good blood flow and a pulsatile flash was observed. The guide wire was not able to be advanced. The catheter was removed and a second attempt with a sterile 20ga catheter was made. This time the wire was able to be advanced and the catheter was easily advanced. Good waveform was observed and the catheter was secured with 3-0 silk suture. A chlorhexadine disc was placed over the insertion site and a sterile dressing was placed. The patient tolerated the procedure well. Blood Loss: Minimal Complications: None Dr. Lima was informed that the line was in place after second attempt.
[2018-07-16 17:16] LABS: iSTAT Arterial Blood Gas HCO3 34 meg/L (19-24); iSTAT Arterial Blood Gas pCO2 57 mmHg (35-46); iSTAT Arterial Blood Gas pH 7.38 (7.35-7.45); iSTAT Carbon Dioxide 36 mEq/l (24-31); iSTAT FiO2 40 %; iSTAT Site Art Line
[2018-07-16 17:16] LABS: iSTAT Arterial Blood Gas HCO3 36 meg/L (19-24); iSTAT Arterial Blood Gas pCO2 66 mmHg (35-46); iSTAT Arterial Blood Gas pH 7.34 (7.35-7.45); iSTAT Carbon Dioxide 37 mEq/l (24-31); iSTAT Site Art Line
[2018-07-16] MEDS ORDERED: Nursing to Pharmacy Communication ONE (17:37)
--- NOTE | 2018-07-16 17:54 | Hospitalist Progress Note ---
Date of Service July 16, 2018 Assessment & Plan (1) Acute respiratory failure with hypoxia: Due to combination of COPD exacerbation/severe ischemic cardia myopathy with decompensated CHF Sent from correctional facility/long term at [facility] with acute respiratory failure/hypoxia was lethargic/intubated Patient was intubated in ER for airway protection Prior history of advanced COPD: Gold stage III, Patient is continued with IV steroids, nebulizer treatment, respiratory support with mechanical ventilation Remains on mechanical ventilation, in ICU room 107 Appreciate input from pulmonary/critical care Status post bronchoscopy 07/14/2018 Showed thick secretions /bilateral mucous plugging, cleared with suction started empirically on cefuroxime Echo shows severe ischemic cardiomyopathy with EF 20% Cardiology evaluation appreciated [place]-Humphrey catheter placed to assist for cardiac parameters/cardiogenic shock (2) Non-ST elevated myocardial infarction (non-STEMI): Presented with hypoxia, shortness of breath, leading to respiratory failure elevated troponins 0.092-1.210-1.150 Echo: 07/14/2018 1.Normal LV size with severely reduced systolic function: EF 20-25% global akinesis 2. Normal right ventricular size with severely reduced systolic function. The basal portion of the right ventricle free wall appears to be normally contracted , but otherwise right ventricle appears severely hypokinetic to akinetic 3. Small pericardial effusion, along the right ventricular free wall . No echocardiographic evidence of tamponade physiology. Unknown baseline Possible type II non-ST elevated VA/demand ischemia in the setting of respiratory failure/ hypoxia Cardiology consulted appreciate input Started on aspirin, no beta-kyaw- worsening of bronchospasms in setting of COPD exacerbation c (3) Acute systolic CHF (congestive heart failure), NYHA class 2: severe ischemic cardiomyopathy with EF of 20-25%, with global hypokinesis with biventricular heart failure, Presents with shortness of breath, chest x-ray shows volume overload Lung auscultation coarse Rales bilaterally Remains on mechanical ventilation Monitor volume status, intake output IV Lasix not ordered, no evidence of volume overload Cardiology consulted appreciate input pt's Echocardiogram indicates biventricular heart failure - [place]-Humphrey catheter placed by critical care for central monitoring: Pulmonary wedge pressure/pulmonary hypertension, cardiac output Overall prognosis remains very poor (4) COPD (chronic obstructive pulmonary disease): Baseline advanced COPD, recent admission few months back at [facility] with COPD exacerbation Presented with hypoxia, respiratory failure, due to COPD exacerbation requiring mechanical ventilation, bronchoscopy evaluation Continue with IV steroids empiric antibiotic Nebulizer treatment as per mechanical ventilation/ICU protocol Appreciate input from pulmonary/critical care (5) GERD (gastroesophageal reflux disease): Continue PPI (6) Hyperglycemia: Monitor blood sugar, in setting of high dose of IV steroids Pharmacy glycemic management per ICU protocol Hb A1c CODE STATUS: Full code DVT prophylaxis: Subcu heparin, moderate to high risk secondary to respiratory failure, obtunded, on mechanical ventilation Disposition: Prisoner at [facility] Follows with long term physician Dr. Andrews plan is to return back to [facility] when medically stable Subjective Patient remains intubated [place]-Humphrey catheter placed by craft worker Unresponsive on mechanical ventilation Physical Exam 2 Vital Signs (Past 24 Hours): Last Vital Signs Temp 36.6 C 07/16/18 08:00 Pulse 96 H 07/16/18 15:02 Resp 24 07/16/18 15:02 BP 108/74 07/16/18 08:00 Pulse Ox 98 07/16/18 15:02 Constitutional: + ill appearing On mechanical ventilation ENMT: Intubated with ET tube and NG tube Neck: normal visual inspection and trachea midline Respiratory: Auscultation: + crackles and + rales Cardiovascular: Rate/Rhythm: regular rate and regular rhythm Extremities: no pedal edema Neurologic: + obtunded
[2018-07-16] MEDS: NOREPINEPHRINE BIT INJ 8 MG in DEXTROSE 5% 500 ML IV SCH (18:30)
[2018-07-16] MEDS: MILRINONE LACTATE/D5W 20,000 MCG/100 ML BAG IV SCH (19:29)
[2018-07-17] MEDS: methylPREDNISolone 80 MG in SYRINGE 0 ML IV SCH ×4 (00:33→18:02)
[2018-07-17] MEDS: INSULIN ASPART 100 UNITS/ML 3 ML PEN SC SCH ×4 (00:33→18:15)
[2018-07-17] MEDS: LEVALBUTEROL HCL 1.25 MG/3 ML NEB NEB SCH ×3 (03:44→11:22)
[2018-07-17] MEDS: IPRATROPIUM BROMIDE NEB SOLN 0.02% 2.5 ML VIAL NEB SCH ×6 (03:44→23:04)
[2018-07-17 04:21] LABS: Hematocrit (blood only) 35.1 % (42-52); Hemoglobin 11.6 g/dL (14.0-18.0); Immature Granulocytes # (auto) 0.03 K/uL (0.00-0.02); Immature Granulocytes % (auto) 0.4 %; Lymphocytes # (auto) 0.81 K/uL (1.2-3.4); Lymphocytes % (auto) 9.7 %; Mean Corpuscular Volume 89.8 fL (80-100); Mean Platelet Volume 9.4 fL (7.4-10.4); Monocytes # (auto) 0.38 K/uL (0.11-0.59); Monocytes % (auto) 4.6 %; Neutrophils # (auto) 7.09 K/uL (1.4-6.5); Neutrophils % (auto) 85.3 %; Platelet Count 274 K/uL (130-400); RDW Standard Deviation 45.9 fL (36.4-46.3); Red Blood Count 3.91 M/uL (4.7-6.1); White Blood Count 8.31 K/uL (4.8-10.8)
[2018-07-17 04:44] LABS: BUN Creatinine Ratio 56.9 (10-20); Creatinine Clr Calc Pharmacy 92.4 ml/min; Est GFR (African American) 115.1; Est GFR (Non-African American) 99.3; Magnesium 2.7 mg/dl (1.8-2.4); Potassium 4.5 mmol/L (3.5-5.1)
[2018-07-17 04:47] LABS: Phosphorus 2.5 mg/dl (2.5-4.9)
[2018-07-17] MEDS: FAMOTIDINE 20 MG in SYRINGE 3 ML IV SCH ×2 (07:40→20:34)
[2018-07-17] MEDS: cefUROXime axetil 500 MG TAB PO SCH ×2 (07:41→20:32)
[2018-07-17] MEDS: ASPIRIN 81 MG CHEW NG SCH (07:41)
[2018-07-17] MEDS: MILRINONE LACTATE/D5W 20,000 MCG/100 ML BAG IV SCH ×2 (08:41→21:31)
--- NOTE | 2018-07-17 09:05 | Cardiology Progress Note ---
Date of Service July 17, 2018 Assessment & Plan (1) Respiratory failure: Still on a ventilator but having some improvement post [place]-Humphrey catheter and medication management. Urine output still looks good. (2) COPD (chronic obstructive pulmonary disease): COPD with CO2 retention (3) Tobacco use: (4) Elevated troponin: I do not believe that this was due to ACS. I think that he had a type II elevation due to the stress of respiratory failure and hypoxia. (5) Biventricular heart failure: Multifactorial including ischemic heart disease and pulmonary hypertension due to severe chronic lung disease. Subjective The patient remains on a ventilator. He is sedated. [place]-Humphrey catheter was placed yesterday. Physical Exam 2 Vital Signs (Past 24 Hours): Last Vital Signs Temp 36.4 C L 07/17/18 04:00 Pulse 86 07/17/18 07:54 Resp 24 07/17/18 07:54 BP 114/73 07/17/18 06:00 Pulse Ox 96 07/17/18 07:54 Physical Exam: General: Patient is on a ventilator and sedated Head: normocephalic, no masses, lesions, tenderness or abnormalities Eyes: Pupils equal and reactive to light Neck: supple, no adenopathy, no bruits, normal jugular venous pulse, no hepatojugular reflux Chest: normal shape and normal respiratory effort Lungs: Equal breath sounds Cardiac Exam: - regular rate & rhythm, no murmurs gallops or rubs - normal S1, normal S2 Pulses: 2(+) throughout Abdomen: abdomen soft, non-tender, no abnormal masses and no hepatosplenomegaly Musculoskeletal: no gait disturbance, no joint inflammation, no deforming arthritis Extremities: no edema and no cyanosis Neuro: grossly normal exam Results & Data Laboratory Results Laboratory Results - last 24 hr 07/14/18 07/14/18 07/16/18 10:22 10:26 12:37 WBC RBC Hgb POC Hgb 12.9 L Cancelled Hct POC Hct 38 L Cancelled MCV MCH MCHC RDW Std Deviation RDW Coeff of Leann Plt Count MPV Immature Gran % (Auto) Neut % (Auto) Lymph % (Auto) [place] % (Auto) Eos % (Auto) Baso % (Auto) Immature Gran # (Auto) Neut # (Auto) Lymph # (Auto) [place] # (Auto) Eos # (Auto) Baso # (Auto) Specimen Type Arterial Cancelled Sample Site Cancelled Patient Temperature Cancelled POC pH 7.20 L Cancelled POC pCO2 87 H Cancelled POC pO2 153 H Cancelled POC HCO3 34 H Cancelled POC Total CO2 36 H Cancelled POC Base Excess 6.0 H Cancelled POC O2 Saturation 99 Cancelled O2 Sat Pulse Oximetry Cancelled ABG pH (Temp Correct) Cancelled ABG pCO2 (Temp Corrct Cancelled POC ABG pO2 at Pt Temp Cancelled POC ABG O2 Sat [place] Test Cancelled Set Respiration Rate Cancelled O2 Delivery Device Cancelled POC O2 Rate Cancelled Minute Ventilation Cancelled Vent Mode Cancelled Vent Setting Cancelled Spontaneous Rate Cancelled FiO2 (liters per min) Cancelled POC FiO2 Cancelled Tidal Volume Cancelled Spontaneous Tidal Vol Cancelled End Tidal CO2 Cancelled PEEP Cancelled High PEEP Setting Cancelled Low PEEP Setting Cancelled Pressure Support Cancelled POC Pressure Suppt Cancelled Pressure Support Vent Cancelled Pressure High Cancelled Time High Cancelled Time Low Cancelled EPAP Cancelled IPAP Cancelled POC Sodium 132 L Cancelled Sodium POC Potassium 4.3 Cancelled Potassium Chloride Carbon Dioxide Anion Gap BUN Creatinine Est Cr Clr Drug Dosing Est GFR ( Amer) Est GFR (Non-Af Amer) BUN/Creatinine Ratio Glucose POC Glucose 117 H POC Glucose (other) Calcium Phosphorus Magnesium Triglycerides Cholesterol LDL Cholesterol, Calc VLDL Cholesterol, Calc HDL Cholesterol Cholesterol/HDL Ratio 07/16/18 07/16/18 07/16/18 16:48 17:01 17:44 WBC RBC Hgb POC Hgb Hct POC Hct MCV MCH MCHC RDW Std Deviation RDW Coeff of Leann Plt Count MPV Immature Gran % (Auto) Neut % (Auto) Lymph % (Auto) [place] % (Auto) Eos % (Auto) Baso % (Auto) Immature Gran # (Auto) Neut # (Auto) Lymph # (Auto) [place] # (Auto) Eos # (Auto) Baso # (Auto) Specimen Type Sample Site Art Line Art Line Patient Temperature POC pH 7.34 L 7.38 POC pCO2 66 H 57 H POC pO2 38 L 113 H POC HCO3 36 H 34 H POC Total CO2 37 H 36 H POC Base Excess 10.0 H 9.0 H POC O2 Saturation O2 Sat Pulse Oximetry ABG pH (Temp Correct) ABG pCO2 (Temp Corrct POC ABG pO2 at Pt Temp POC ABG O2 Sat 67.0 L 98.0 H [place] Test NA NA Set Respiration Rate O2 Delivery Device Ventilator POC O2 Rate 24 Minute Ventilation 10.6 Vent Mode Vent Setting Spontaneous Rate FiO2 (liters per min) POC FiO2 40 Tidal Volume 500 Spontaneous Tidal Vol End Tidal CO2 PEEP 5 High PEEP Setting Low PEEP Setting Pressure Support POC Pressure Suppt Pressure Support Vent Pressure High Time High Time Low EPAP IPAP POC Sodium Sodium POC Potassium Potassium Chloride Carbon Dioxide Anion Gap BUN Creatinine Est Cr Clr Drug Dosing Est GFR ( Amer) Est GFR (Non-Af Amer) BUN/Creatinine Ratio Glucose POC Glucose 134 H POC Glucose (other) Calcium Phosphorus Magnesium Triglycerides Cholesterol LDL Cholesterol, Calc VLDL Cholesterol, Calc HDL Cholesterol Cholesterol/HDL Ratio 07/17/18 07/17/18 07/17/18 00:27 03:55 03:55 WBC 8.31 RBC 3.91 L Hgb 11.6 L POC Hgb Hct 35.1 L POC Hct MCV 89.8 MCH 29.7 MCHC 33.0 RDW Std Deviation 45.9 RDW Coeff of Leann 14.0 Plt Count 274 MPV 9.4 Immature Gran % (Auto) 0.4 Neut % (Auto) 85.3 Lymph % (Auto) 9.7 [place] % (Auto) 4.6 Eos % (Auto) 0.0 Baso % (Auto) 0.0 Immature Gran # (Auto) 0.03 H Neut # (Auto) 7.09 H Lymph # (Auto) 0.81 L [place] # (Auto) 0.38 Eos # (Auto) 0.00 Baso # (Auto) 0.00 Specimen Type Sample Site Patient Temperature POC pH POC pCO2 POC pO2 POC HCO3 POC Total CO2 POC Base Excess POC O2 Saturation O2 Sat Pulse Oximetry ABG pH (Temp Correct) ABG pCO2 (Temp Corrct POC ABG pO2 at Pt Temp POC ABG O2 Sat [place] Test Set Respiration Rate O2 Delivery Device POC O2 Rate Minute Ventilation Vent Mode Vent Setting Spontaneous Rate FiO2 (liters per min) POC FiO2 Tidal Volume Spontaneous Tidal Vol End Tidal CO2 PEEP High PEEP Setting Low PEEP Setting Pressure Support POC Pressure Suppt Pressure Support Vent Pressure High Time High Time Low EPAP IPAP POC Sodium Sodium 134 L POC Potassium Potassium 4.5 Chloride 97 L Carbon Dioxide 33 H Anion Gap 4.0 BUN 41 H Creatinine 0.72 Est Cr Clr Drug Dosing 92.4 Est GFR ( Amer) 115.1 Est GFR (Non-Af Amer) 99.3 BUN/Creatinine Ratio 56.9 H Glucose 142 H POC Glucose POC Glucose (other) 123 H Calcium 8.0 L Phosphorus 2.5 Magnesium 2.7 H Triglycerides 120 Cholesterol 138 LDL Cholesterol, Calc 89 VLDL Cholesterol, Calc 24 HDL Cholesterol 25 Cholesterol/HDL Ratio 6 07/17/18 05:56 WBC RBC Hgb POC Hgb Hct POC Hct MCV MCH MCHC RDW Std Deviation RDW Coeff of Laenn Plt Count MPV Immature Gran % (Auto) Neut % (Auto) Lymph % (Auto) [place] % (Auto) Eos % (Auto) Baso % (Auto) Immature Gran # (Auto) Neut # (Auto) Lymph # (Auto) [place] # (Auto) Eos # (Auto) Baso # (Auto) Specimen Type Sample Site Patient Temperature POC pH POC pCO2 POC pO2 POC HCO3 POC Total CO2 POC Base Excess POC O2 Saturation O2 Sat Pulse Oximetry ABG pH (Temp Correct) ABG pCO2 (Temp Corrct POC ABG pO2 at Pt Temp POC ABG O2 Sat [place] Test Set Respiration Rate O2 Delivery Device POC O2 Rate Minute Ventilation Vent Mode Vent Setting Spontaneous Rate FiO2 (liters per min) POC FiO2 Tidal Volume Spontaneous Tidal Vol End Tidal CO2 PEEP High PEEP Setting Low PEEP Setting Pressure Support POC Pressure Suppt Pressure Support Vent Pressure High Time High Time Low EPAP IPAP POC Sodium Sodium POC Potassium Potassium Chloride Carbon Dioxide Anion Gap BUN Creatinine Est Cr Clr Drug Dosing Est GFR ( Amer) Est GFR (Non-Af Amer) BUN/Creatinine Ratio Glucose POC Glucose POC Glucose (other) 128 H Calcium Phosphorus Magnesium Triglycerides Cholesterol LDL Cholesterol, Calc VLDL Cholesterol, Calc HDL Cholesterol Cholesterol/HDL Ratio Medications Administered Current Inpatient Medications Aspirin (Aspirin Chew) 81 mg NG DAILY SIENNA Stop: 08/14/18 11:44 Last Admin: 07/17/18 07:41 Dose: 81 mg Cefuroxime Axetil (Ceftin) 500 mg PO Q12H SIENNA Stop: 07/21/18 11:59 Last Admin: 07/17/18 07:41 Dose: 500 mg Dextrose (Dextrose 50%) 25 - 50 ml IV UD PRN; Protocol PRN Reason: Hypoglycemia Protocol Stop: 08/13/18 10:58 Enoxaparin Sodium (Lovenox) 40 mg SQ Q24H SIENNA Stop: 08/13/18 11:59 Last Admin: 07/16/18 12:22 Dose: 40 mg Fentanyl Citrate (Fentanyl Citrate) 50 mcg IV Q2H PRN PRN Reason: Moderate Pain (4,5,6) Stop: 07/28/18 10:47 Glucagon (Glucagen) 1 mg SQ UD PRN; Protocol PRN Reason: Hypoglycemia Protocol Stop: 08/13/18 10:58 Glucose (Glucose 40%) 15 - 30 gm PO UD PRN; Protocol PRN Reason: Hypoglycemia Protocol Stop: 08/13/18 10:58 Glucose (Dex4 Glucose) 4 - 8 tabs PO UD PRN; Protocol PRN Reason: Hypoglycemia Protocol Stop: 08/13/18 10:58 Famotidine 20 mg/ Syringe 5 mls @ 2.5 mls/min IV Q12 SIENNA Stop: 08/13/18 11:29 Last Admin: 07/17/18 07:40 Dose: 2.5 mls/min Midazolam HCl (Versed) 125 mg in 250 mls @ 4 mls/hr IV .Q0M SIENNA; Protocol Stop: 08/13/18 11:44 Last Admin: 07/16/18 07:47 Dose: 2 mg/hr, 4 mls/hr Fentanyl Citrate (Fentanyl Drip) 1,250 mcg in 250 mls @ 20 mls/hr IV .[id number] SIENNA; Protocol Stop: 07/28/18 11:44 Last Titration: 07/17/18 00:36 Dose: 100 mcg/hr, 20 mls/hr Methylprednisolone 80 mg/ (Syringe) 1.28 mls @ 1.5 mls/min IV Q6H SIENNA Stop: 08/15/18 11:59 Last Admin: 07/17/18 06:00 Dose: 1.5 mls/min Norepinephrine Bitartrate 8 mg (/ Dextrose) 508 mls @ 11.84 mls/hr IV .Q24H SIENNA ; Protocol Stop: 08/15/18 17:44 Last Admin: 07/16/18 18:30 Dose: 0.05 mcg/kg/min, 11.8 mls/hr Milrinone Lactate/Dextrose (Primacor/D5w) 20,000 mcg in 100 mls @ 4.665 mls/hr IV .[id number] SIENNA; Protocol Stop: 08/15/18 12:59 Last Admin: 07/17/18 08:41 Dose: 0.375 mcg/kg/min, 7 mls/hr Insulin Aspart (Novolog Flexpen) 0 units SC Q6H SIENNA Stop: 08/13/18 11:59 Last Admin: 07/17/18 05:59 Dose: Not Given Ipratropium Trimont (Atrovent 0.02% 0.5mg/2.5ml) 0.5 mg NEB Q4R SIENNA Stop: 08/13/18 11:59 Last Admin: 07/17/18 07:37 Dose: 0.5 mg Lactulose (Chronulac) 30 gm PO Q8H PRN PRN Reason: Constipation Stop: 08/16/18 08:32 Levalbuterol HCl (Xopenex 1.25mg/3ml Neb) 1.25 mg NEB Q4R SIENNA Stop: 08/13/18 11:59 Last Admin: 07/17/18 07:37 Dose: 1.25 mg Midazolam HCl (Versed) 2 mg IV Q2H PRN PRN Reason: agitation/anxiety Stop: 08/13/18 10:47 Miscellaneous (Carbohydrates For Hypoglycemia) 15 - 30 gm PO UD PRN PRN Reason: Hypoglycemia Treatment Stop: 08/13/18 10:58 _ (1) Respiratory failure Chronicity: acute on chronic Respiratory failure complication: hypoxia and hypercapnia Qualified Code(s): J96.21 - Acute and chronic respiratory failure with hypoxia; J96.22 - Acute and chronic respiratory failure with hypercapnia
--- NOTE | 2018-07-17 09:20 | Hospitalist Progress Note ---
Date of Service July 17, 2018 Assessment & Plan (1) Acute respiratory failure with hypoxia: Due to combination of COPD exacerbation/severe ischemic cardia myopathy biventricular heart failure with decompensated CHF Sent from correctional facility/fpc at [facility] with acute respiratory failure/hypoxia was lethargic/intubated Patient was intubated in ER for airway protection Prior history of advanced COPD: Gold stage III, Patient is continued with IV steroids, nebulizer treatment, respiratory support with mechanical ventilation Remains on mechanical ventilation, in ICU room 107 Appreciate input from pulmonary/critical care Status post bronchoscopy 07/14/2018 Showed thick secretions /bilateral mucous plugging, cleared with suction started empirically on cefuroxime Echo shows severe ischemic cardiomyopathy with EF 20% Cardiology evaluation appreciated [place]-Humphrey catheter placed to assist for cardiac parameters/cardiogenic shock started on iv milrinone for Low cardiac output, Last [place]-Humphrey data shows stable cardiac output Appreciate input from cardiology on Levophed (2) Non-ST elevated myocardial infarction (non-STEMI): Presented with hypoxia, shortness of breath, leading to respiratory failure elevated troponins 0.092-1.210-1.150 Echo: 07/14/2018 1.Normal LV size with severely reduced systolic function: EF 20-25% global akinesis 2. Normal right ventricular size with severely reduced systolic function. The basal portion of the right ventricle free wall appears to be normally contracted , but otherwise right ventricle appears severely hypokinetic to akinetic 3. Small pericardial effusion, along the right ventricular free wall . No echocardiographic evidence of tamponade physiology. Unknown baseline type II non-ST elevated AK/demand ischemia in the setting of respiratory failure/ hypoxia Cardiology consulted appreciate input Started on aspirin, no beta-kyaw- worsening of bronchospasms in setting of COPD exacerbation (3) Acute systolic CHF (congestive heart failure), NYHA class 2: severe ischemic cardiomyopathy with EF of 20-25%, with global hypokinesis with biventricular heart failure, Presents with shortness of breath, chest x-ray shows volume overload Lung auscultation coarse Rales bilaterally Remains on mechanical ventilation Monitor volume status, intake output IV Lasix not ordered, no evidence of volume overload Cardiology consulted appreciate input pt's Echocardiogram indicates biventricular heart failure - [place]-Humphrey catheter placed by critical care for central monitoring: Pulmonary wedge pressure/pulmonary hypertension, cardiac output Overall prognosis remains very poor (4) COPD (chronic obstructive pulmonary disease): Baseline advanced COPD, recent admission few months back at [facility] with COPD exacerbation Presented with hypoxia, respiratory failure, due to COPD exacerbation requiring mechanical ventilation, bronchoscopy evaluation Continue with IV steroids empiric antibiotic Nebulizer treatment as per mechanical ventilation/ICU protocol Appreciate input from pulmonary/critical care (5) GERD (gastroesophageal reflux disease): Continue PPI (6) Hyperglycemia: Monitor blood sugar, in setting of high dose of IV steroids Pharmacy glycemic management per ICU protocol Hb A1c 5.4 CODE STATUS: Full code DVT prophylaxis: Subcu heparin, moderate to high risk secondary to respiratory failure, obtunded, on mechanical ventilation Disposition: Prisoner at [facility] Follows with fpc physician Dr. Andrews plan is to return back to [facility] when medically stable Subjective Remains intubated, with ventilatory support, unresponsive On pressors: Levophed [place]-Humphrey catheter placed by critical care On IV milrinone Improved urine output Physical Exam 2 Vital Signs (Past 24 Hours): Last Vital Signs Temp 36.4 C L 07/17/18 04:00 Pulse 86 07/17/18 07:54 Resp 24 07/17/18 07:54 BP 114/73 07/17/18 06:00 Pulse Ox 96 07/17/18 07:54 Constitutional: + ill appearing Mechanically ventilated Neck: Intubated, NG tube, ET tube present Respiratory: Auscultation: + crackles and + rales Cardiovascular: Rate/Rhythm: regular rate and regular rhythm Vessels: no JVD Extremities: no pedal edema and no edema Neurologic: + obtunded
[2018-07-17] MEDS: fentaNYL DRIP 1,250 MCG/250 ML BAG IV SCH ×2 (09:56→22:53)
[2018-07-17] MEDS: ENOXAPARIN INJ 40 MG/0.4 ML SYR SQ SCH (11:23)
--- NOTE | 2018-07-17 12:15 | Critical Care Progress Note ---
Date of Service July 17, 2018 Assessment & Plan (1) COPD (chronic obstructive pulmonary disease): Impression: 1. Acute on chronic hypercapnic and hypoxic respiratory failure requiring intubation. 2. Severe COPD, gold level 3, in exacerbation. 3. No evidence of pneumonia this patient, however mucoid impaction is bilateral. 4. History of liver cirrhosis. 5. Non-ST elevation GA, type II, demand GA. 6. Cardiomyopathy with EF of 20%. Plan: 1. Ventilator management. Failed spontaneous breathing trial. Poor lung reserve. 2. Continue bronchodilators. 3. Systemic steroids. I will increase the dose to 80 mg every 6 hours. 4. Continue cefuroxime for 7 days total.. 5. OG tube feeding, appreciate nutrition consult. I will start the tube feeding at goal. 6. Appreciate Dr. Obrien input, PA catheter was placed, the patient showed wedge pressure of 21, he continued to have poor cardiac output. 7. Continue with DVT and GI prophylaxis. 8. Core measures for the ICU has been met. 9. Milrinone drip was started and increased to 0.375 mics per KG per minute. I will add dobutamine drip as well. 10. Vap bundle. 11. Hemodynamic profile every shift. 12. The family were at the bedside including the sister and the mother, I update them, long discussion took place with them, all their questions been answered. 13. Mixed venous blood gas. 14. Discussed with the staff on rounds and details, Critical care time spent with the patient was 45 minutes excluding procedure time. Subjective The patient remains vented and sedated, review of system is not obtainable. Physical Exam 2 Vital Signs (Past 24 Hours): Last Vital Signs Temp 36.4 C L 07/17/18 04:00 Pulse 86 07/17/18 11:23 Resp 24 07/17/18 11:23 BP 114/73 07/17/18 06:00 Pulse Ox 96 07/17/18 11:23 Physical Exam: Vital signs are stable, blood pressure is supported by low- dose of Levophed, JVP, S1-S2 regular rate and rhythm, distant breath sounds bilaterally, abdomen is scaphoid but benign, no edema, cachexia. Neurologically difficult to assess. No skin rash. No oral thrush. Results & Data Laboratory Results Labs were reviewed which showed normal WBC, stable hematocrit, ABG was acceptable, CO2 of 33 and BUN/creatinine 41 and 0.7. Diagnostic Findings No new imaging.
[2018-07-17] MEDS: DOBUTamine / D5W 500 MG/250 ML BAG IV SCH (14:43)
[2018-07-17] MEDS: LACTULOSE SYRUP 30 GM/45 ML UDP PO PRN (14:44)
[2018-07-17] MEDS: LEVALBUTEROL 1.25MG/0.5ML NEB INH SCH ×3 (15:37→23:04)
[2018-07-17] MEDS: MIDAZOLAM HCL 125 MG/250 ML BAG IV SCH (16:07)
[2018-07-17] MEDS: IMPACT LIQD 1.0 CAL 1,000 ML BAG OG SCH (16:26)
[2018-07-18] MEDS: methylPREDNISolone 80 MG in SYRINGE 0 ML IV SCH ×3 (00:32→11:14)
[2018-07-18] MEDS: INSULIN ASPART 100 UNITS/ML 3 ML PEN SC SCH ×5 (00:33→23:24)
[2018-07-18] MEDS: LEVALBUTEROL 1.25MG/0.5ML NEB INH SCH ×6 (04:22→23:52)
[2018-07-18] MEDS: IPRATROPIUM BROMIDE NEB SOLN 0.02% 2.5 ML VIAL NEB SCH ×6 (04:22→23:52)
[2018-07-18 04:39] LABS: Hematocrit (blood only) 33.5 % (42-52); Immature Granulocytes # (auto) 0.01 K/uL (0.00-0.02); Immature Granulocytes % (auto) 0.2 %; Lymphocytes # (auto) 0.57 K/uL (1.2-3.4); Lymphocytes % (auto) 8.7 %; Mean Corpuscular Hgb Conc 32.8 g/dL (32-36); Mean Corpuscular Volume 89.8 fL (80-100); Mean Platelet Volume 9.6 fL (7.4-10.4); Monocytes % (auto) 6.1 %; Neutrophils # (auto) 5.56 K/uL (1.4-6.5); Platelet Count 179 K/uL (130-400); RDW Coefficient of Variation 13.8 % (11.5-14.5); RDW Standard Deviation 45.7 fL (36.4-46.3); Red Blood Count 3.73 M/uL (4.7-6.1); White Blood Count 6.54 K/uL (4.8-10.8)
[2018-07-18 04:55] LABS: Calcium 7.9 mg/dl (8.5-10.1); Creatinine Clr Calc Pharmacy 91.7 ml/min; Est GFR (African American) 119.3; Est GFR (Non-African American) 102.9; Magnesium 2.5 mg/dl (1.8-2.4); Potassium 4.6 mmol/L (3.5-5.1)
[2018-07-18 06:05] LABS: iSTAT Arterial Blood Gas HCO3 34 meg/L (19-24); iSTAT Arterial Blood Gas pCO2 51 mmHg (35-46); iSTAT Arterial Blood Gas pH 7.43 (7.35-7.45); iSTAT Carbon Dioxide 36 mEq/l (24-31); iSTAT FiO2 30 %; iSTAT Site Art Line
[2018-07-18] MEDS: NOREPINEPHRINE BIT INJ 8 MG in DEXTROSE 5% 500 ML IV SCH (08:07)
[2018-07-18] MEDS: FAMOTIDINE 20 MG in SYRINGE 3 ML IV SCH ×2 (08:09→21:16)
[2018-07-18] MEDS: ASPIRIN 81 MG CHEW NG SCH (08:09)
[2018-07-18] MEDS: cefUROXime axetil 500 MG TAB PO SCH ×2 (08:09→21:15)
[2018-07-18] MEDS ORDERED: FUROSEMIDE 40 MG in SYRINGE 0 ML IV ONE (10:45)
[2018-07-18] MEDS: LACTULOSE SYRUP 30 GM/45 ML UDP PO PRN (10:49)
--- NOTE | 2018-07-18 11:08 | Cardiology Progress Note ---
Date of Service July 18, 2018 Assessment & Plan (1) Acute respiratory failure with hypoxia: (2) Biventricular heart failure: Patient remains on ventilator, with milrinone and dobutamine infusions. Norepinephrone off since 9 pm 07/17/18. Cardiac Index slightly improved to 2.36 from 2.02, PCWP still high at 20 mm Hg. Received furosemide 40 mg this am. Continue supportive care. Continue lovenox for DVT prophylaxis. Subjective CC: follow up respiratory failure, ischemic cardiomyopathy Subjective: Pt sedated and on ventilator. Telemetry reveals sinus tachcyardia at 101 bpm, without other arrhythmia. Physical Exam 2 Vital Signs (Past 24 Hours): Last Vital Signs Temp 36.9 C 07/18/18 08:00 Pulse 106 H 07/18/18 09:00 Resp 24 07/18/18 07:19 BP 113/68 07/18/18 09:00 Pulse Ox 94 07/18/18 09:00 Constitutional: + ill appearing Respiratory: Auscultation: + diminished lung sounds (decreased BS at bases ); no crackles Cardiovascular: Rate/Rhythm: regular rate, regular rhythm and + tachycardic Heart Sounds: no murmur Extremities: no edema Gastrointestinal (Abdomen): Percussion/Palpation: abdomen soft Neurologic: sedated Genitourinary: patel catheter in place with clear yellow urine
[2018-07-18] MEDS: ENOXAPARIN INJ 40 MG/0.4 ML SYR SQ SCH (11:13)
[2018-07-18] MEDS: fentaNYL DRIP 1,250 MCG/250 ML BAG IV SCH ×2 (12:42→16:49)
--- NOTE | 2018-07-18 12:58 | Critical Care Progress Note ---
Date of Service July 18, 2018 Assessment & Plan (1) COPD (chronic obstructive pulmonary disease): Impression: 1. Acute on chronic hypercapnic and hypoxic respiratory failure requiring intubation. 2. Severe COPD, gold level 3, in exacerbation. 3. No evidence of pneumonia this patient, however mucoid impaction is bilateral. 4. History of liver cirrhosis. 5. Non-ST elevation DE, type II, demand DE. 6. Cardiomyopathy with EF of 20%. Plan: 1. Ventilator management. Failed spontaneous breathing trial. Poor lung reserve. 2. Continue bronchodilators. 3. I will change Solu-Medrol back again to 40 mg IV every 6 hours. 4. Continue cefuroxime for 7 days total. I have placed stop date on cefuroxime.. 5. OG tube feeding, appreciate nutrition consult. I will start the tube feeding at goal. 6. I will start tapering milrinone to off. 7. Continue with DVT and GI prophylaxis. 8. Core measures for the ICU has been met. 9. I will continue with dobutamine 2.5 mics per KG per minute, the patient could not tolerate higher doses due to tachycardia. 10. Vap bundle. 11. I would discontinue the PA catheter after the last hemodynamic profile. 12. Discontinue norepinephrine. 13. Continue with fentanyl and Versed at 50 mics and 2 mg respectively. 14. Appreciate cardiology input. 15. We will continue daily spontaneous breathing trials. 16. I have placed the patient on pressure support of 20 and PEEP of 10 with FiO2 of 60%. And I will taper accordingly. 17. Discussed with the staff on rounds and details, appreciate their assistance. Critical care time spent with the patient was 45 minutes . Subjective The patient continued to fail spontaneous breathing trial, although he did require higher level of PSVT, he becomes very anxious tachycardic and hypertensive when that happened. Milrinone has been weaned to off. He is off levo fed. He is still requiring Versed and fentanyl drip for sedation. Apart from the above, no other events overnight. Physical Exam 2 Vital Signs (Past 24 Hours): Last Vital Signs Temp 36.9 C 07/18/18 08:00 Pulse 103 H 07/18/18 11:00 Resp 24 07/18/18 11:00 BP 113/68 07/18/18 09:00 Pulse Ox 93 07/18/18 11:00 Physical Exam: His vital signs are variable but currently he is slightly hypertensive, heart rate is 115, respiratory rate is 26, positive JVP, lungs with distant wheezing bilaterally, abdomen is scaphoid and benign, no edema, no oral thrush, no rash. Neurologically difficult to assess as the patient being ventilated. Results & Data Laboratory Results His labs were reviewed personally which showed normal WBC, CBC is acceptable, and ABG is also acceptable. Diagnostic Findings No new imaging. His PA catheter showed improvement in cardiac output to 4.0, PA pressure remains elevated and wedge pressure is 20.
--- NOTE | 2018-07-18 15:34 | Hospitalist Progress Note ---
Date of Service July 18, 2018 Assessment & Plan (1) Acute respiratory failure with hypoxia: Due to combination of COPD exacerbation/severe ischemic cardia myopathy biventricular heart failure with decompensated CHF Sent from correctional facility/alf at [facility] with acute respiratory failure/hypoxia was lethargic/intubated Patient was intubated in ER for airway protection Prior history of advanced COPD: Gold stage III, Patient is continued with IV steroids, nebulizer treatment, respiratory support with mechanical ventilation Remains on mechanical ventilation, in ICU room 107 Appreciate input from pulmonary/critical care Status post bronchoscopy 07/14/2018 Showed thick secretions /bilateral mucous plugging, cleared with suction started empirically on cefuroxime Failed weaning trial today Severe ischemic cardiomyopathy with EF 20%-noted in echo Cardiology evaluation appreciated Long Barn-Humphrey catheter placed to assist for cardiac parameters/cardiogenic shock started on iv milrinone for Low cardiac output, Last Long Barn-Humphrey data shows stable cardiac output Appreciate input from cardiology (2) Non-ST elevated myocardial infarction (non-STEMI): Presented with hypoxia, shortness of breath, leading to respiratory failure elevated troponins 0.092-1.210-1.150 Echo: 07/14/2018 1.Normal LV size with severely reduced systolic function: EF 20-25% global akinesis 2. Normal right ventricular size with severely reduced systolic function. The basal portion of the right ventricle free wall appears to be normally contracted , but otherwise right ventricle appears severely hypokinetic to akinetic 3. Small pericardial effusion, along the right ventricular free wall . No echocardiographic evidence of tamponade physiology. Unknown baseline type II non-ST elevated [place]/demand ischemia in the setting of respiratory failure/ hypoxia Cardiology consulted appreciate input Started on aspirin, no beta-kyaw- worsening of bronchospasms in setting of COPD exacerbation On dobutamine for severe cardiomyopathy/biventricular heart failure (3) Acute systolic CHF (congestive heart failure), NYHA class 2: severe ischemic cardiomyopathy with EF of 20-25%, with global hypokinesis with biventricular heart failure, Presents with shortness of breath, chest x-ray shows volume overload Lung auscultation coarse Rales bilaterally Remains on mechanical ventilation Monitor volume status, intake output IV Lasix not ordered, no evidence of volume overload Cardiology consulted appreciate input pt's Echocardiogram indicates biventricular heart failure - Long Barn-Humphrey catheter placed by critical care for central monitoring: Pulmonary wedge pressure-remains elevated/pulmonary hypertension, cardiac output Overall prognosis remains very poor (4) COPD (chronic obstructive pulmonary disease): Baseline advanced COPD, recent admission few months back at [facility] with COPD exacerbation Presented with hypoxia, respiratory failure, due to COPD exacerbation requiring mechanical ventilation, bronchoscopy evaluation Continue with IV steroids empiric antibiotic Patient remains on ventilatory support Failed weaning protocol Appreciate input from pulmonary/critical care (5) GERD (gastroesophageal reflux disease): Continue PPI (6) Hyperglycemia: Monitor blood sugar, in setting of high dose of IV steroids Pharmacy glycemic management per ICU protocol Hb A1c 5.4 CODE STATUS: Full code DVT prophylaxis: Subcu heparin, moderate to high risk secondary to respiratory failure, obtunded, on mechanical ventilation Disposition: Prisoner at [facility] Follows with alf physician Dr. Andrews plan is to return back to [facility] when medically stable Subjective Remains intubated, with ventilatory support, Failed weaning trial On pressors: Long Barn-Humphrey catheter placed by critical care Physical Exam 2 Vital Signs (Past 24 Hours): Last Vital Signs Temp 36.8 C 07/18/18 12:00 Pulse 98 H 07/18/18 15:05 Resp 11 L 07/18/18 15:05 BP 128/89 07/18/18 13:00 Pulse Ox 99 07/18/18 15:05 Constitutional: + ill appearing Neck: normal visual inspection and trachea midline Respiratory: Auscultation: + crackles and + rales Cardiovascular: Rate/Rhythm: regular rate and regular rhythm Vessels: no JVD Extremities: no pedal edema and no edema Neurologic: + obtunded
[2018-07-18] MEDS: MIDAZOLAM HCL 125 MG/250 ML BAG IV SCH (18:00)
[2018-07-18] MEDS: DOBUTamine / D5W 500 MG/250 ML BAG IV SCH (18:02)
[2018-07-18] MEDS: methylPREDNISolone 40 MG in SYRINGE 0 ML IV SCH ×2 (18:02→23:24)
[2018-07-18] MEDS: IMPACT LIQD 1.0 CAL 1,000 ML BAG OG SCH (23:23)
[2018-07-19] MEDS: fentaNYL DRIP 1,250 MCG/250 ML BAG IV SCH ×2 (00:34→23:32)
[2018-07-19] MEDS: LEVALBUTEROL 1.25MG/0.5ML NEB INH SCH ×6 (03:30→23:07)
[2018-07-19] MEDS: IPRATROPIUM BROMIDE NEB SOLN 0.02% 2.5 ML VIAL NEB SCH ×6 (03:31→23:07)
[2018-07-19 05:11] LABS: Hematocrit (blood only) 34.8 % (42-52); Hemoglobin 11.4 g/dL (14.0-18.0); Mean Corpuscular Hgb Conc 32.8 g/dL (32-36); Mean Corpuscular Volume 91.6 fL (80-100); Platelet Count 130 K/uL (130-400); White Blood Count 8.43 K/uL (4.8-10.8)
[2018-07-19 05:18] LABS: BUN Creatinine Ratio 72.5 (10-20); Calcium 8.2 mg/dl (8.5-10.1); Creatinine Clr Calc Pharmacy 116.8 ml/min; Est GFR (African American) 132.6; Est GFR (Non-African American) 114.4; Magnesium 2.5 mg/dl (1.8-2.4); Phosphorus 2.7 mg/dl (2.5-4.9); Potassium 4.8 mmol/L (3.5-5.1)
[2018-07-19] MEDS: INSULIN ASPART 100 UNITS/ML 3 ML PEN SC SCH ×4 (05:40→23:38)
[2018-07-19] MEDS: methylPREDNISolone 40 MG in SYRINGE 0 ML IV SCH ×4 (05:40→23:33)
[2018-07-19 05:41] LABS: Immature Granulocytes # (auto) 0.05 K/uL (0.00-0.02); Immature Granulocytes % (auto) 0.6 %; Lymphocytes # (auto) 0.89 K/uL (1.2-3.4); Lymphocytes % (auto) 10.6 %; Monocytes # (auto) 0.32 K/uL (0.11-0.59); Monocytes % (auto) 3.8 %; Neutrophils # (auto) 7.17 K/uL (1.4-6.5)
[2018-07-19 07:43] LABS: iSTAT Arterial Blood Gas HCO3 35 meg/L (19-24); iSTAT Arterial Blood Gas pCO2 55 mmHg (35-46); iSTAT Arterial Blood Gas pH 7.41 (7.35-7.45); iSTAT Carbon Dioxide 36 mEq/l (24-31); iSTAT FiO2 40 %; iSTAT Site Art Line
[2018-07-19] MEDS: ASPIRIN 81 MG CHEW NG SCH (07:43)
[2018-07-19] MEDS: cefUROXime axetil 500 MG TAB PO SCH ×2 (07:43→21:21)
[2018-07-19] MEDS: FAMOTIDINE 20 MG in SYRINGE 3 ML IV SCH ×2 (07:44→21:20)
[2018-07-19] MEDS ORDERED: FUROSEMIDE 40 MG in SYRINGE 0 ML IV ONE (09:00)
[2018-07-19] MEDS ORDERED: SOD PHOSPHATE/SOD BIPHOSPHATE ENEMA 132 ML BTL PR PRN (11:24)
[2018-07-19] MEDS: ENOXAPARIN INJ 40 MG/0.4 ML SYR SQ SCH (11:49)
--- NOTE | 2018-07-19 12:45 | Cardiology Progress Note ---
Date of Service July 19, 2018 Assessment & Plan (1) Biventricular heart failure: (2) Acute systolic CHF (congestive heart failure), NYHA class 2: (3) Acute respiratory failure with hypoxia: Patient presented with profound respiratory failure and respiratory acidosis, required emergent endotracheal intubation and bronchoscopy. He has a history of severe ischemic cardiomyopathy, and is required support for low cardiac output state. Norepinephrine and milrinone have been discontinued and remains on dobutamine 2.5 mcg/kg/min. He has underlying severe emphysema based on his chest x-ray. Continue supportive care. The critical care team is making advances with trying to wean his ventilator support which is tolerated from a blood pressure standpoint however noted tachycardia is present. His most recent cardiac index had been 3 as of 2004 last night, most recent hemodynamics are pending at present. Continue Lovenox for DVT prophylaxis. Subjective Chief complaint: Follow-up respiratory failure, history of ischemic cardiomyopathy, low cardiac output Subjective: Patient remains on the ventilator. He had a trial of CPAP/pressure support for a few hours yesterday and was transitioned back to assist control overnight. At the time of my assessment in ICU room 106 he had recently been transitioned back to CPAP with an FiO2 of 40%.. His blood pressure was tolerating this, but he was noted to have sinus tachycardia in the range of 120 bpm. He is no longer on milrinone, and is on dopamine at 2.5 mg/kg/min. Physical Exam 2 Vital Signs (Past 24 Hours): Last Vital Signs Temp 36.5 C 07/19/18 08:00 Pulse 119 H 07/19/18 10:50 Resp 24 07/19/18 10:50 BP 170/97 H 07/19/18 10:00 Pulse Ox 95 07/19/18 10:50 Physical Exam: General: Acutely ill in appearance Eyes: conjunctiva are pink and non-injected, sclera clear Lungs: Positive decreased breath sounds at bases Cardiac Exam: - regular heart sounds, 1/6 systolic Abdomen: abdomen soft, non-tender, no abnormal masses and no hepatosplenomegaly Musculoskeletal: no gait disturbance, no weakness Extremities: no edema and no cyanosis Neuro: Opens eyes spontaneously, off of sedation
[2018-07-19] MEDS: MIDAZOLAM HCL 125 MG/250 ML BAG IV SCH (13:30)
--- NOTE | 2018-07-19 15:55 | Hospitalist Progress Note ---
Date of Service July 19, 2018 Assessment & Plan (1) Acute respiratory failure with hypoxia: Continued on mechanical ventilation, Failed daily weaning protocol Due to combination of COPD exacerbation/severe ischemic cardia myopathy biventricular heart failure with decompensated CHF Sent from correctional facility/snf at [facility] with acute respiratory failure/hypoxia was lethargic/intubated Patient was intubated in ER for airway protection Prior history of advanced COPD: Gold stage III, Patient is continued with IV steroids, nebulizer treatment, respiratory support with mechanical ventilation Remains on mechanical ventilation, in ICU room 107 Appreciate input from pulmonary/critical care Status post bronchoscopy 07/14/2018 Showed thick secretions /bilateral mucous plugging, cleared with suction started empirically on cefuroxime Failed weaning trial today Severe ischemic cardiomyopathy with EF 20%-noted in echo Cardiology evaluation appreciated Appreciate input from cardiology (2) Non-ST elevated myocardial infarction (non-STEMI): Presented with hypoxia, shortness of breath, leading to respiratory failure elevated troponins 0.092-1.210-1.150 Echo: 07/14/2018 1.Normal LV size with severely reduced systolic function: EF 20-25% global akinesis 2. Normal right ventricular size with severely reduced systolic function. The basal portion of the right ventricle free wall appears to be normally contracted , but otherwise right ventricle appears severely hypokinetic to akinetic 3. Small pericardial effusion, along the right ventricular free wall . No echocardiographic evidence of tamponade physiology. Unknown baseline type II non-ST elevated [place]/demand ischemia in the setting of respiratory failure/ hypoxia Cardiology consulted appreciate input Started on aspirin, no beta-kyaw- worsening of bronchospasms in setting of COPD exacerbation On dobutamine for severe cardiomyopathy/biventricular heart failure (3) Acute systolic CHF (congestive heart failure), NYHA class 2: severe ischemic cardiomyopathy with EF of 20-25%, with global hypokinesis with biventricular heart failure, Presents with shortness of breath, chest x-ray shows volume overload Lung auscultation coarse Rales bilaterally Remains on mechanical ventilation Monitor volume status, intake output IV Lasix not ordered, no evidence of volume overload Cardiology consulted appreciate input pt's Echocardiogram indicates biventricular heart failure - Overall prognosis remains very poor (4) COPD (chronic obstructive pulmonary disease): Baseline advanced COPD, recent admission few months back at [facility] with COPD exacerbation Presented with hypoxia, respiratory failure, due to COPD exacerbation requiring mechanical ventilation, bronchoscopy evaluation Continue with IV steroids empiric antibiotic Patient remains on ventilatory support Failed weaning protocol Appreciate input from pulmonary/critical care (5) GERD (gastroesophageal reflux disease): Continue PPI (6) Hyperglycemia: Monitor blood sugar, in setting of high dose of IV steroids Pharmacy glycemic management per ICU protocol Hb A1c 5.4 CODE STATUS: Full code DVT prophylaxis: Subcu heparin, moderate to high risk secondary to respiratory failure, obtunded, on mechanical ventilation Disposition: Prisoner at [facility] Follows with snf physician Dr. Andrews plan is to return back to [facility] when medically stable Subjective Remains unresponsive on vent, failed weaning protocol Physical Exam 2 Vital Signs (Past 24 Hours): Last Vital Signs Temp 36.5 C 07/19/18 08:00 Pulse 106 H 07/19/18 14:30 Resp 24 07/19/18 14:30 BP 170/97 H 07/19/18 10:00 Pulse Ox 96 07/19/18 14:30 Constitutional: + ill appearing Neck: normal visual inspection and trachea midline Respiratory: Auscultation: + crackles and + rales Cardiovascular: Rate/Rhythm: regular rate and regular rhythm Vessels: no JVD Extremities: no pedal edema and no edema Neurologic: + obtunded
--- NOTE | 2018-07-19 17:23 | Critical Care Progress Note ---
Date of Service July 19, 2018 Assessment & Plan (1) COPD (chronic obstructive pulmonary disease): Impression: 1. Acute on chronic hypercapnic and hypoxic respiratory failure requiring intubation. 2. Severe COPD, gold level 3, in exacerbation. 3. No evidence of pneumonia this patient, however mucoid impaction is bilateral. 4. History of liver cirrhosis. 5. Non-ST elevation MT, type II, demand MT. 6. Cardiomyopathy with EF of 20%. Plan: 1. Ventilator management. Failed spontaneous breathing trial. Poor lung reserve. 2. Continue bronchodilators. 3. Continue Solu-Medrol 40 mg IV every 6 hours. 4. Cefuroxime for 7 days only. 5. OG tube feeding, appreciate nutrition consult. 6. Discontinue milrinone. 7. Continue with DVT and GI prophylaxis. 8. Core measures for the ICU has been met. 9. Keep dobutamine at 2.5 mics per KG per minute. He responded well to it, cardiac output improved as well as pulmonary artery occlusive pressure dropped down to 13. 10. Vap bundle. 11. Discontinue PA catheter. 12. Discontinue norepinephrine. 13. Continue with fentanyl and Versed at 50 mics and 2 mg respectively. 14. Appreciate cardiology input. No PCI at this point. 15. Lasix 40 mg IV today. 16. Options of treatment would be continue with spontaneous breathing trial to extubation, other option would be a tracheostomy, given the patient being incarcerated, this will change his disposition. 17. Discussed with the staff on rounds and details, appreciate their assistance. Critical care time spent with the patient was 45 minutes . Subjective The patient continued to fail spontaneous breathing trial, in part, related to stopping the sedation, he does not tolerate weaning off the sedation. His PA pressures are better, which pressure is down to 13, cardiac output is up to 4.8. PA catheter was discontinued. Review of system is not obtainable as the patient been intubated. Physical Exam 2 Vital Signs (Past 24 Hours): Last Vital Signs Temp 36.6 C 07/19/18 16:00 Pulse 110 H 07/19/18 16:00 Resp 24 07/19/18 14:30 BP 112/65 07/19/18 16:00 Pulse Ox 95 07/19/18 16:00 Physical Exam: Vital signs are stable, S1-S2 regular rate and rhythm, tachycardic at times, lungs with distant breath sounds, scattered wheezing, abdomen is benign, no edema. Cachexia, neurologically difficult to assess as the patient be sedated. Results & Data Laboratory Results Labs showed stable CBC, BMP as well, ABG also was reviewed and the patient has to go back on AC mode. Diagnostic Findings No new imaging.
[2018-07-19] MEDS: DOBUTamine / D5W 500 MG/250 ML BAG IV SCH (18:18)
[2018-07-19] MEDS: IMPACT LIQD 1.0 CAL 1,000 ML BAG OG SCH (18:18)
[2018-07-19] MEDS: LACTULOSE SYRUP 30 GM/45 ML UDP PO PRN (21:20)
[2018-07-20] MEDS: IPRATROPIUM BROMIDE NEB SOLN 0.02% 2.5 ML VIAL NEB SCH ×6 (03:31→23:19)
[2018-07-20] MEDS: LEVALBUTEROL 1.25MG/0.5ML NEB INH SCH ×6 (03:31→23:19)
[2018-07-20 05:01] LABS: Hematocrit (blood only) 34.1 % (42-52); Immature Granulocytes # (auto) 0.08 K/uL (0.00-0.02); Immature Granulocytes % (auto) 0.7 %; Lymphocytes # (auto) 0.93 K/uL (1.2-3.4); Lymphocytes % (auto) 8.2 %; Mean Corpuscular Hgb Conc 32.3 g/dL (32-36); Mean Corpuscular Volume 91.9 fL (80-100); Mean Platelet Volume 9.5 fL (7.4-10.4); Monocytes # (auto) 0.48 K/uL (0.11-0.59); Monocytes % (auto) 4.2 %; Neutrophils # (auto) 9.85 K/uL (1.4-6.5); Neutrophils % (auto) 86.9 %; Platelet Count 142 K/uL (130-400); RDW Coefficient of Variation 14.2 % (11.5-14.5); RDW Standard Deviation 47.5 fL (36.4-46.3); Red Blood Count 3.71 M/uL (4.7-6.1); White Blood Count 11.34 K/uL (4.8-10.8)
[2018-07-20 05:18] LABS: BUN Creatinine Ratio 70.1 (10-20); Creatinine Clr Calc Pharmacy 108.4 ml/min; Est GFR (African American) 126.7; Est GFR (Non-African American) 109.3; Magnesium 2.4 mg/dl (1.8-2.4); Potassium 4.3 mmol/L (3.5-5.1)
[2018-07-20 05:19] LABS: Phosphorus 2.3 mg/dl (2.5-4.9)
[2018-07-20 05:33] LABS: iSTAT Arterial Blood Gas HCO3 37 meg/L (19-24); iSTAT Arterial Blood Gas pCO2 53 mmHg (35-46); iSTAT Arterial Blood Gas pH 7.46 (7.35-7.45); iSTAT Carbon Dioxide 39 mEq/l (24-31); iSTAT FiO2 40 %; iSTAT Site Art Line
[2018-07-20] MEDS: methylPREDNISolone 40 MG in SYRINGE 0 ML IV SCH ×3 (06:01→18:04)
[2018-07-20] MEDS: INSULIN ASPART 100 UNITS/ML 3 ML PEN SC SCH ×3 (06:01→18:10)
--- NOTE | 2018-07-20 07:09 | XRay Report ---
XR chest 1V portable CLINICAL HISTORY: Respiratory failure COMPARISON STUDY: 07/16/2018 FINDINGS: There is an endotracheal tube 6.8 cm above the kendrick. There is a nasogastric tube which pa sses into the stomach. There is a right internal jugular introducer sheath. There is severe pulmonary emphysema. There is no lobar consolidation. Diffuse reticular right lung densities remain similar. T here are basilar opacities statistically atelectatic.[ IMPRESSION: 1. Severe pulmonary emphysema 2. Endotracheal tube 6.8 cm above the kendrick Electronically signed by: Jose Fields M.D. 07/20/2018 7:07 AM
--- NOTE | 2018-07-20 08:02 | Critical Care Progress Note ---
Date of Service July 20, 2018 Supervising Physician Co-Signing Physician Notes Biventricular heart failureReason Critically Ill: 62-year-old male with severe end-stage COPD and severe pulmonary PLAN: Neuro: Transition fentanyl to oral patient and continue to wean -Spontaneous breathing trial later today after decision versus terminal extubation Resp: Acute hypercarbic hypoxic respiratory failure Severe COPD Severe pulmonary hypertension -Weaning off dobutamine for support -No significant change in hemodynamics CV: Poor cardiac index Biventricular heart failure -Reviewd Cardiology consult Fluids/Renal: Aggressive diuresis -500 mg Diamox x1 -Lasix 40 mg x 1 -60 M EQ's of KCl by mouth ID: 7-day course of cefuroxime -Reviewed bronchial washings species, given improvement vent settings think this is colonization GI/Nutrition: Tolerating tube feeds at goal -constipation -MiraLAX, mineral oil, lactulose Pepcid for GI prophylaxis Heme: Anemia DVT prophylaxis: Lovenox Endocrine: ICU hyperglycemia protocol Vascular access: Weaning dobutamine will hopefully be able to discontinue central venous access today Code Status: Full code Will attempt to contact retirement and family today to figure out goals of care Spoke with physician at [facility] Dr. Li we will be contacting his nursing staff to relay family contact information to facilitate goals of care discussion I have personally spent 85 minutes of critical care time in the direct management of this patient. This is a life/limb threatening event. This includes time spent evaluating patient, direct bedside care, chart review, placing orders, interpretation of diagnostic studies, discussion with consultants, patient, and/or family members regarding treatment decisions, as well as other required patient management activities. This time is exclusive of all separately billable procedures, and teaching time and separate from and in addition to any other critical care service time. Subjective Patient has failed extubation attempts x3. I have reached patient's sister Angelica [phone], who informed me the patient was never has no children his mother is still living: Vera [phone], and has one additional brother Austin [phone]. Discussed prognosis of biventricular failure in the setting of severe pulmonary hypertension and severe COPD. We discussed extubation and reintubation, terminal extubation, as well as tracheostomy. All in agreement patient has not expressed his desires in end of life and they all desire him to be involved in the medical decision making. Accordingly they feel the best option would be to proceed with tracheostomy and allow the patient to participate and feel even though the patient is fiercely independent, because the tracheostomy is reversible that this is the best option. The patient's mother admits that she is struggling with the decision but again feels that we are giving him every possible chance to participate. Physical Exam 2 Vital Signs (Past 24 Hours): Last Vital Signs Temp 36.9 C 07/20/18 00:00 Pulse 109 H 07/20/18 05:10 Resp 24 07/20/18 05:10 BP 119/71 07/20/18 04:00 Pulse Ox 95 07/20/18 05:10 General: RASS 0. nontoxic. Skin: Warm, dry, Head: Atraumatic Ears, nose, mouth and throat: Airway obscured by endotracheal tube Cardiovascular: Normal peripheral perfusion Respiratory: no respiratory distress distant lung sounds Gastrointestinal: Non distended Musculoskeletal: No deformity Patient arouses to voice, follows complex commands, appears to assent to procedure. Results & Data Laboratory Results 07/20/18 07/20/18 07/20/18 Range/Units 12:24 05:19 04:41 WBC 11.34 H (4.8-10.8) K/uL RBC 3.71 L (4.7-6.1) M/uL Hgb 11.0 L (14.0-18.0) g/dL Hct 34.1 L (42-52) % MCV 91.9 (80-100) fL MCH 29.6 (25-34) pg MCHC 32.3 (32-36) g/dL RDW Std Deviation 47.5 H (36.4-46.3) fL RDW Coeff of Leann 14.2 (11.5-14.5) % Plt Count 142 (130-400) K/uL MPV 9.5 (7.4-10.4) fL Immature Gran % (Auto) 0.7 % Neut % (Auto) 86.9 % Lymph % (Auto) 8.2 % Williamson % (Auto) 4.2 % Eos % (Auto) 0.0 % Baso % (Auto) 0.0 % Immature Gran # (Auto) 0.08 H (0.00-0.02) K/uL Neut # (Auto) 9.85 H (1.4-6.5) K/uL Lymph # (Auto) 0.93 L (1.2-3.4) K/uL Williamson # (Auto) 0.48 (0.11-0.59) K/uL Eos # (Auto) 0.00 (0-0.5) K/uL Baso # (Auto) 0.00 (0-0.2) K/uL Sample Site Art Line POC pH 7.46 H (7.35-7.45) POC pCO2 53 H (35-46) mmHg POC pO2 84 (80-95) mmHg POC HCO3 37 H (19-24) hernan/L POC Total CO2 39 H (24-31) mEq/l POC Base Excess 13.0 H (-9-1.8) hernan/L POC ABG O2 Sat 97.0 H (90-95) % [place] Test NA O2 Delivery Device Ventilator POC O2 Rate 24 Minute Ventilation 12.0 POC FiO2 40 % Tidal Volume 500 PEEP 5 Sodium (136-145) mmol/L Potassium (3.5-5.1) mmol/L Chloride (98-107) mmol/L Carbon Dioxide (21-32) mmol/L Anion Gap (3-11) BUN (7-18) mg/dl Creatinine (0.6-1.4) mg/dl Est Cr Clr Drug Dosing ml/min Est GFR ( Amer) Est GFR (Non-Af Amer) BUN/Creatinine Ratio (10-20) Glucose (70-99) mg/dl POC Glucose 165 H (70-99) Calcium (8.5-10.1) mg/dl Phosphorus (2.5-4.9) mg/dl Magnesium (1.8-2.4) mg/dl 07/20/18 07/19/18 07/19/18 Range/Units 04:41 23:35 18:14 WBC (4.8-10.8) K/uL RBC (4.7-6.1) M/uL Hgb (14.0-18.0) g/dL Hct (42-52) % MCV (80-100) fL MCH (25-34) pg MCHC (32-36) g/dL RDW Std Deviation (36.4-46.3) fL RDW Coeff of Leann (11.5-14.5) % Plt Count (130-400) K/uL MPV (7.4-10.4) fL Immature Gran % (Auto) % Neut % (Auto) % Lymph % (Auto) % Williamson % (Auto) % Eos % (Auto) % Baso % (Auto) % Immature Gran # (Auto) (0.00-0.02) K/uL Neut # (Auto) (1.4-6.5) K/uL Lymph # (Auto) (1.2-3.4) K/uL Williamson # (Auto) (0.11-0.59) K/uL Eos # (Auto) (0-0.5) K/uL Baso # (Auto) (0-0.2) K/uL Sample Site POC pH (7.35-7.45) POC pCO2 (35-46) mmHg POC pO2 (80-95) mmHg POC HCO3 (19-24) hernan/L POC Total CO2 (24-31) mEq/l POC Base Excess (-9-1.8) hernan/L POC ABG O2 Sat (90-95) % [place] Test O2 Delivery Device POC O2 Rate Minute Ventilation POC FiO2 % Tidal Volume PEEP Sodium 139 (136-145) mmol/L Potassium 4.3 (3.5-5.1) mmol/L Chloride 100 (98-107) mmol/L Carbon Dioxide 37 H (21-32) mmol/L Anion Gap 2.0 L (3-11) BUN 40 H (7-18) mg/dl Creatinine 0.57 L (0.6-1.4) mg/dl Est Cr Clr Drug Dosing 108.4 ml/min Est GFR ( Amer) 126.7 Est GFR (Non-Af Amer) 109.3 BUN/Creatinine Ratio 70.1 H (10-20) Glucose 162 H (70-99) mg/dl POC Glucose 144 H 148 H (70-99) Calcium 8.0 L (8.5-10.1) mg/dl Phosphorus 2.3 L (2.5-4.9) mg/dl Magnesium 2.4 (1.8-2.4) mg/dl
[2018-07-20] MEDS: cefUROXime axetil 500 MG TAB PO SCH ×2 (08:57→21:33)
[2018-07-20] MEDS: ASPIRIN 81 MG CHEW NG SCH (08:57)
[2018-07-20] MEDS: FAMOTIDINE 20 MG in SYRINGE 3 ML IV SCH ×2 (08:57→21:35)
--- NOTE | 2018-07-20 09:58 | Cardiology Progress Note ---
Date of Service July 20, 2018 Assessment & Plan (1) Acute respiratory failure with hypoxia: (2) Biventricular heart failure: (3) Non-ST elevated myocardial infarction (non-STEMI): Patient with ongoing respiratory failure, has not made progress of weaning from the ventilator. Telemetry reveals sinus tachycardia 110 bpm. Remains on a dobutamine infusion. Chest x-ray is more consistent with pulmonary emphysema than congestive heart failure. He had a mild troponin elevation this admission, likely a type II demand based a myocardial infarction in the setting of profound hypoxia and underlying coronary heart disease, ischemic cardiomyopathy. . Continue ventilator support. Subjective Chief complaint: Follow-up respiratory failure, cardiomyopathy Subjective: Patient is back on sedation with Versed and fentanyl, and on the ventilator, assist control, FiO2 40%. He has not made significant progress in terms of weaning from the ventilator. Physical Exam 2 Vital Signs (Past 24 Hours): Last Vital Signs Temp 36.9 C 07/20/18 00:00 Pulse 105 H 07/20/18 07:20 Resp 24 07/20/18 07:20 BP 119/71 07/20/18 04:00 Pulse Ox 96 07/20/18 07:20 Physical Exam: General: Alert appearance Neck: normal jugular venous pulse, no hepatojugular reflux Chest: decreased BS at bases Lungs: clear to auscultation and percussion Cardiac Exam: - regular heart sounds, I / , Systolic murmur Abdomen: abdomen soft, non-tender, no abnormal masses and no hepatosplenomegaly Extremities: no edema and no cyanosis Neuro:sedated
[2018-07-20] MEDS ORDERED: MINERAL OIL ENEMA 133 ML BTL PR PRN (10:42)
[2018-07-20] MEDS ORDERED: DOCUSATE SODIUM 100 MG CAP PO SCH (10:45)
[2018-07-20] MEDS ORDERED: acetaZOLAMIDE 500 MG in SYRINGE 0 ML IV ONE (11:30)
[2018-07-20] MEDS ORDERED: POTASSIUM CHLORIDE PWD 20 MEQ PACK PO ONE (11:30)
[2018-07-20] MEDS ORDERED: FUROSEMIDE 40 MG in SYRINGE 0 ML IV ONE (11:45)
[2018-07-20] MEDS: ENOXAPARIN INJ 40 MG/0.4 ML SYR SQ SCH (12:36)
[2018-07-20] MEDS: LACTULOSE SYRUP 30 GM/45 ML UDP PO PRN ×2 (12:47→21:35)
[2018-07-20] MEDS: IMPACT LIQD 1.0 CAL 1,000 ML BAG OG SCH (12:47)
[2018-07-20] MEDS: DOBUTamine / D5W 500 MG/250 ML BAG IV SCH (14:40)
--- NOTE | 2018-07-20 15:15 | Hospitalist Progress Note ---
Date of Service July 20, 2018 Assessment & Plan (1) Acute respiratory failure with hypoxia: Continued on mechanical ventilation, Failed daily weaning protocol multiple times Very poor prognosis, Continued to be ventilator dependent for long period of time, may need to consider tracheostomy Critical care following Due to combination of COPD exacerbation/severe ischemic cardia myopathy biventricular heart failure with decompensated CHF Sent from correctional facility/assisted at [facility] with acute respiratory failure/hypoxia was lethargic/intubated Patient was intubated in ER for airway protection Prior history of advanced COPD: Gold stage III, Patient is continued with IV steroids, nebulizer treatment, respiratory support with mechanical ventilation Remains on mechanical ventilation, in ICU room 107 Appreciate input from pulmonary/critical care Status post bronchoscopy 07/14/2018 Showed thick secretions /bilateral mucous plugging, cleared with suction started empirically on cefuroxime Failed weaning trial today Severe ischemic cardiomyopathy with EF 20%-noted in echo Cardiology evaluation appreciated Appreciate input from cardiology (2) Non-ST elevated myocardial infarction (non-STEMI): Type II LA/non-ST elevated LA: N/A setting of demand ischemia, severe cardiomyopathy Presented with hypoxia, shortness of breath, leading to respiratory failure elevated troponins 0.092-1.210-1.150 Echo: 07/14/2018 1.Normal LV size with severely reduced systolic function: EF 20-25% global akinesis 2. Normal right ventricular size with severely reduced systolic function. The basal portion of the right ventricle free wall appears to be normally contracted , but otherwise right ventricle appears severely hypokinetic to akinetic 3. Small pericardial effusion, along the right ventricular free wall . No echocardiographic evidence of tamponade physiology. Unknown baseline type II non-ST elevated LA/demand ischemia in the setting of respiratory failure/ hypoxia Cardiology consulted appreciate input Started on aspirin, no beta-kyaw-/severe COPD/biventricular failure On dobutamine gtt for severe cardiomyopathy/biventricular heart failure (3) Acute systolic CHF (congestive heart failure), NYHA class 2: severe ischemic cardiomyopathy with EF of 20-25%, with global hypokinesis with biventricular heart failure, Presents with shortness of breath, chest x-ray shows volume overload Lung auscultation coarse Rales bilaterally Remains on mechanical ventilation Monitor volume status, intake output IV Lasix not ordered, no evidence of volume overload Cardiology consulted appreciate input pt's Echocardiogram indicates biventricular heart failure - Overall prognosis remains very poor (4) COPD (chronic obstructive pulmonary disease): Baseline advanced COPD, recent admission few months back at [facility] with COPD exacerbation Presented with hypoxia, respiratory failure, due to COPD exacerbation requiring mechanical ventilation, bronchoscopy evaluation Continue with IV steroids empiric antibiotic Patient remains on ventilatory support Failed weaning protocol Appreciate input from pulmonary/critical care (5) GERD (gastroesophageal reflux disease): Continue PPI (6) Hyperglycemia: Monitor blood sugar, in setting of high dose of IV steroids Pharmacy glycemic management per ICU protocol Hb A1c 5.4 CODE STATUS: Full code DVT prophylaxis: Subcu heparin, moderate to high risk secondary to respiratory failure, obtunded, on mechanical ventilation Disposition: Prisoner at [facility] Follows with assisted physician Dr. Andrews plan is to return back to [facility] when medically stable Subjective No change in status, remains unresponsive on Vent Failed trial to wean off mechanical ventilation Mechanical ventilation day #7(intubated in ER for respiratory failure on 2018) Physical Exam 2 Vital Signs (Past 24 Hours): Last Vital Signs Temp 36.4 C L 07/20/18 12:00 Pulse 101 H 07/20/18 14:00 Resp 24 07/20/18 13:35 BP 128/84 07/20/18 14:00 Pulse Ox 96 07/20/18 14:00 Constitutional: + ill appearing Neck: normal visual inspection and trachea midline Respiratory: Auscultation: + crackles and + rales Cardiovascular: Rate/Rhythm: regular rate and regular rhythm Vessels: no JVD Extremities: no pedal edema and no edema Neurologic: + obtunded
--- NOTE | 2018-07-20 15:34 | Palliative Care Consultation ---
Addendum entered and electronically signed by PRANAV Mccord 15:57: Addendum (Blank) Addendum July 20, 2018 15:57 Discussed CODE STATUS with patient's sister, Dai. In the event of cardiac arrest, patient and family would NOT want him to have CPR. At that point, allow natural . Will change patient to DO NOT RESUSCITATE. Original Note: Date of Consultation July 20, 2018 Assessment & Plan (1) Goals of care, counseling/discussion: -62 year old male with PMH severe COPD, dependent on oxygen, incarcerated inmate, history of hepatitis B, liver cirrhosis, and others, presented to ED with increased SOB accompanied with persistent cough. The patient was severely agitated due to respiratory failure and failed noninvasive positive pressure ventilation. The patient was intubated due to respiratory failure and transferred to the ICU for further management.Chest x-ray showing pulmonary emphysema rather than congestive heart failure. He had a mild troponin elevation this admission, and according to cardiology is likely demand ischemia/ myocardial infarction in the setting of profound hypoxia and underlying coronary heart disease, ischemic cardiomyopathy with EF 20%. Remains on dobutamine infusion. Patient with ongoing respiratory failure, has not made progress of weaning from the ventilator-- has failed three weaning attempts. He may need trach vs. terminal extubation. Palliative care consulted to discuss goals of care. -[facility] medical laboratory scientist was contacted by Dr. Nino. [facility] contacted us back and gave patient's sister, Dai's, phone number as the primary contact. Dr. Nino and I spoke with Dai. She stated that the patient never made his wishes known to family as to what he would and wouldn't want. We discussed options: extubation with no plans for reintubation and if he worsened, keep him comfortable vs. trach and prolonged weaning process. -Decision has been made, after Dai spoke with patient's mother, Vera Shirley, to proceed with trach. Patient can then hopefully wake up and make his own decisions. -Of now, patient's mother, Vera, is alive but is elderly and frail. She struggles with decision making, which is why patient's sister Dai is primary contact that was listed at the [facility]. Patient has a brother, Austin, who is also alive and well but does not make decisions for patient. Austin is kept in the loop by Dai. Again, [facility] authorized us to call patient's sister Dai for medical decision-making. -Will continue to follow and be of assistance in any way. (2) Acute systolic CHF (congestive heart failure), NYHA class 2: (3) Non-ST elevated myocardial infarction (non-STEMI): (4) Cirrhosis: (5) COPD (chronic obstructive pulmonary disease): Supervising Physician Co-Signing Physician Notes Late entry for exam and visit on 07/20 Chart reviewed, pt seen and examined, collaborated with PRANAV Tompkins PE: Pt sedated and intubated, guards at bedside Resp: on vent CV: tachycardic Abd: not distneded Neuro: sedated Agree with above note, assessment and plan as per PRANAV Bonner - will cont to follow to assist family with medical decision making. History of Present Illness Attending Physician: Magali Banegas MD History of Present Illness This 62 year old male with PMH severe COPD, dependent on oxygen, incarcerated inmate, history of hepatitis B, liver cirrhosis, and others, presented to ED with increased SOB accompanied with persistent cough. The patient was severely agitated due to respiratory failure and failed noninvasive positive pressure ventilation. The patient was intubated due to respiratory failure and transferred to the ICU for further management.Chest x-ray showing pulmonary emphysema rather than congestive heart failure. He had a mild troponin elevation this admission, and according to cardiology is likely demand ischemia/ myocardial infarction in the setting of profound hypoxia and underlying coronary heart disease, ischemic cardiomyopathy with EF 20%. Remains on dobutamine infusion. Patient with ongoing respiratory failure, has not made progress of weaning from the ventilator-- has failed three weaning attempts. He may need trach vs. terminal extubation. Palliative care consulted to discuss goals of care. Thank you kindly for this consult. I will follow as needed. Allergies Allergy/AdvReac Type Severity Reaction Status Date / Time No Known Allergies Allergy Unverified 07/14/18 08:44 Home Medications Home Medications Medication Instructions Recorded Confirmed Type fluticasone-salmeterol [Advair 1 inh INHALATION BID 03/19/18 07/14/18 History Diskus] montelukast [Singulair] 10 mg PO QAM 03/19/18 07/14/18 History spironolactone [Aldactone] 25 mg PO QAM 03/19/18 07/14/18 History ipratropium-albuterol 3 ml INHALATION QID 7 Days #126 ml 03/26/18 07/14/18 Rx guaifenesin 400 mg PO TID 07/14/18 07/14/18 History levalbuterol tartrate [Xopenex HFA] 2 inh INHALATION TID PRN 07/14/18 07/14/18 History prednisone 40 mg PO DAILY 07/14/18 07/14/18 History tiotropium bromide [Spiriva with 1 cap INHALATION DAILY 07/14/18 07/14/18 History HandiHaler] Patient History Medical History Tobacco use (Chronic) GERD (gastroesophageal reflux disease) (Chronic) Cirrhosis (Chronic) Hepatitis B (Chronic) COPD (chronic obstructive pulmonary disease) (Acute) HTN (hypertension) (Chronic) Pneumonia (Resolved) Tachycardia (Resolved) COPD exacerbation (Resolved) Acute respiratory failure with hypoxia (Acute) COPD (chronic obstructive pulmonary disease) Cirrhosis of liver GERD (gastroesophageal reflux disease) History of hepatitis B Hypertension Tobacco abuse Family History Other Diabetes Heart disease Kidney disease Social History Current Living Situation: Other [facility] Other Information That Helps Us Care for You: No Feels Safe at Home: No Is there a partner from a previous relationship who is making you feel unsafe now?: No Smoking Status: Current every day smoker Tobacco Type: cigarettes Cigarettes per Day: 24 Hx Alcohol Use: No Hx Substance Use: No Beliefs That Will Affect Care: Hinduism Hinduism Beliefs: non-sikh Presybeterian" Preferred Language: Cook Islander Communication Ability: Effective Review of Systems unable to obtain due to mechanical ventilation/sedation. Physical Exam 2 Vital Signs (Past 24 Hours): Last Vital Signs Temp 36.4 C L 07/20/18 12:00 Pulse 107 H 07/20/18 14:57 Resp 24 07/20/18 14:57 BP 128/84 07/20/18 14:00 Pulse Ox 96 07/20/18 14:57 Constitutional: + ill appearing; no acute distress ENMT: external ear and nose normal, oropharynx normal Neck: normal visual inspection and trachea midline Respiratory: normal respiratory effort, lungs clear to auscultation Auscultation: + diminished lung sounds Cardiovascular: Rate/Rhythm: regular rate, regular rhythm and + tachycardic Gastrointestinal (Abdomen): Inspection/Auscultation: abdomen normal to inspection and normal bowel sounds Neurologic: + not awake (sedated but does wake to verbal stimuli and follows commands) Time Spent Midlevel 70 minutes with >50% of time spent at bedside with patient and on phone with family discussing condition and goals of care, as well as collaborating with IDT to discuss case.
[2018-07-20] MEDS ORDERED: MAGNESIUM CITRATE 296 ML/BTL PO SCH (16:30)
[2018-07-20] MEDS: MIDAZOLAM HCL 125 MG/250 ML BAG IV SCH (18:07)
[2018-07-20] MEDS: DOCUSATE SODIUM SYRUP 100 MG/10 ML UDC PO SCH (21:31)
[2018-07-21] MEDS: methylPREDNISolone 40 MG in SYRINGE 0 ML IV SCH ×2 (00:31→06:41)
[2018-07-21] MEDS: INSULIN ASPART 100 UNITS/ML 3 ML PEN SC SCH ×4 (00:38→16:53)
[2018-07-21] MEDS: fentaNYL DRIP 1,250 MCG/250 ML BAG IV SCH ×2 (04:00→07:05)
[2018-07-21] MEDS: LEVALBUTEROL 1.25MG/0.5ML NEB INH SCH ×5 (04:10→20:02)
[2018-07-21] MEDS: IPRATROPIUM BROMIDE NEB SOLN 0.02% 2.5 ML VIAL NEB SCH ×5 (04:10→20:02)
[2018-07-21 05:05] LABS: Hematocrit (blood only) 34.1 % (42-52); Hemoglobin 11.2 g/dL (14.0-18.0); Immature Granulocytes # (auto) 0.12 K/uL (0.00-0.02); Lymphocytes # (auto) 0.62 K/uL (1.2-3.4); Lymphocytes % (auto) 5.3 %; Mean Corpuscular Hgb Conc 32.8 g/dL (32-36); Mean Corpuscular Volume 92.4 fL (80-100); Mean Platelet Volume 9.7 fL (7.4-10.4); Monocytes # (auto) 0.48 K/uL (0.11-0.59); Monocytes % (auto) 4.1 %; Neutrophils # (auto) 10.56 K/uL (1.4-6.5); Neutrophils % (auto) 89.6 %; Platelet Count 145 K/uL (130-400); RDW Coefficient of Variation 14.5 % (11.5-14.5); RDW Standard Deviation 48.9 fL (36.4-46.3); Red Blood Count 3.69 M/uL (4.7-6.1); White Blood Count 11.78 K/uL (4.8-10.8)
[2018-07-21 05:15] LABS: INR 1.1 (0.9-1.1); Prothrombin Time 10.9 Seconds (9.0-12.0)
[2018-07-21 05:27] LABS: Albumin Level 2.6 gm/dl (3.4-5.0); BUN Creatinine Ratio 61.6 (10-20); Bilirubin Direct 0.3 mg/dl (0-0.2); Calcium 8.2 mg/dl (8.5-10.1); Creatinine Clr Calc Pharmacy 111.5 ml/min; Est GFR (African American) 127.6; Est GFR (Non-African American) 110.1; Magnesium 2.4 mg/dl (1.8-2.4); Potassium 4.7 mmol/L (3.5-5.1)
[2018-07-21 05:30] LABS: Bilirubin,Total 0.7 mg/dl (0.2-1); Phosphorus 2.3 mg/dl (2.5-4.9); Total Protein 6.2 gm/dl (6.4-8.2)
[2018-07-21 05:41] LABS: iSTAT Arterial Blood Gas HCO3 32 meg/L (19-24); iSTAT Arterial Blood Gas pCO2 50 mmHg (35-46); iSTAT Arterial Blood Gas pH 7.42 (7.35-7.45); iSTAT Carbon Dioxide 34 mEq/l (24-31); iSTAT FiO2 40 %; iSTAT Site Art Line
[2018-07-21] MEDS ORDERED: LIDOCAINE HCL 2% (LOCAL) INJ 50 ML VIAL ONE (07:26)
[2018-07-21] MEDS ORDERED: VECURONIUM BROMIDE 10 MG VIAL IV ONE (07:30)
[2018-07-21] MEDS ORDERED: XYLOCAINE 1%/SOD BICARB 20 ML VIAL INFIL ONE (07:30)
--- NOTE | 2018-07-21 08:04 | Pre Anesthesia Assessment ---
Date of Service July 21, 2018 Pre Sedation Assessment Vital Signs Temp Pulse Pulse Resp BP Pulse Ox 07/21/18 06:00 36.6 C 95 H 114/74 97 07/21/18 05:06 94 H 24 97 07/21/18 05:00 99 H 112/73 97 07/21/18 04:00 36.6 C 97 H 115/75 97 07/21/18 03:00 93 H 112/70 97 07/21/18 02:10 96 H 24 96 07/21/18 02:00 97 H 114/72 96 07/21/18 01:00 96 H 118/73 96 07/21/18 00:53 99 H 07/21/18 00:05 36.8 C 07/21/18 00:00 100 H 118/74 96 07/20/18 23:24 96 H 24 95 07/20/18 23:00 36.8 C 98 H 134/81 94 07/20/18 22:00 100 H 124/76 98 07/20/18 21:00 95 H 111/64 97 07/20/18 20:51 94 H 24 98 07/20/18 20:00 97 H 120/71 96 07/20/18 19:00 36.6 C 98 H 116/69 96 07/20/18 18:15 103 H 24 96 07/20/18 14:57 107 H 24 96 07/20/18 14:00 101 H 128/84 96 07/20/18 13:35 105 H 24 95 07/20/18 13:00 111 H 96 07/20/18 12:00 36.4 C L 105 H 143/87 H 97 07/20/18 11:25 111 H 117 H 24 95 07/20/18 11:00 105 H 129/76 97 07/20/18 10:00 103 H 127/76 97 07/20/18 09:00 109 H 123/75 96 Pre-Sedation Airway Assessment Smoking Status: Current every day smoker Airway secured via endotracheal tube Notes The planned sedation has been discussed with the patient. Informed Consent was obtained. I have identified the patient, determined the appropriateness of sedation and have assessed the patient immediately prior to the procedure. All medicine(s) and interventions are by my order. Continuous Versed and fentanyl via my order
--- NOTE | 2018-07-21 08:07 | Procedure Note ---
Procedure Note Date of Service July 21, 2018 Procedure: Flexible Bronchoscopy for visualization of Trachesotomy Placement Attending/Billboard Poster: Dr. Nino, Jigar Leigh PA-C Anesthetic/Sedation: Versed, Fentanyl, vecuronium, lidocaine Indication: Respiratory Failure with need for trach placement. Consent was signed and placed on the chart prior to procedure. Indication, risks , and benefits were explained at length. A time-out was completed verifying correct patient, procedure, site, positioning , and implant(s) or special equipment if applicable. Time of procedure: 729 Description: Indication: Patient requiring percutaneous placement of tracheostomy tube. Fiberoptic bronchoscopy required for clearance of secretions prior to the procedure, visualization of cannulization, and verification of airways status post procedure. After positioning of the endotracheal tube via video assisted laryngoscopy, the fiberoptic bronchoscope was introduced into the endotracheal tube. The needle entry site in the trachea midline was visualized as was the placement of the guidewire into the distal trachea. Photographs were taken to confirm placement of the guidewire. After placement of the tracheostomy tube, the bronchoscope was withdrawn from the endotracheal tube and introduced through the tracheostomy tube to confirm correct placement. The bronchoscope was then withdrawn to allow suturing of the tracheostomy tube into position. After confirmation of position and securement of the tracheostomy tube the endotracheal tube was removed. The patient experienced no desaturation or complication during the procedure. Dr. Nino was present for the entire procedure as he was performing a percutaneous tracheostomy placement Complications: none Patient tolerated procedure: well Post-procedure vital signs: reviewed and stable
--- NOTE | 2018-07-21 08:12 | Procedure Note ---
Procedure Note Date of Service July 21, 2018 Critical Care Medicine Point of Care Bedside Ultrasound Procedure: Limited Bedside soft tissue neck ultrasound Indication: Surgical planning for tracheostomy Attending: Yordan Nion DO Organs Examined: Trachea, thyroid, bilateral carotids, bilateral neurovascular bundle The laryngeal cartilages were visualized in the sagittal plane, no obvious vasculature was noted over the first second or third tracheal ring. In the transverse orientation there appeared to be a small perforating vessel running in the sagittal plane midline over the second and third tracheal ring through a prior avoidance. Impression: Single-vessel in the midline of the planned surgical field. Images obtained are saved for permanent record
--- NOTE | 2018-07-21 08:41 | Critical Care Progress Note ---
Date of Service July 21, 2018 Physical Exam Vital Signs (Past 24 Hours): Last Vital Signs Temp 36.6 C 07/21/18 06:00 Pulse 95 H 07/21/18 06:00 Resp 24 07/21/18 08:19 BP 114/74 07/21/18 06:00 Pulse Ox 97 07/21/18 06:00
--- NOTE | 2018-07-21 08:59 | Procedure Note ---
Procedure Note Date of Service July 21, 2018 Procedure Date: Noted Above Procedure: Percutaneous Dilational Tracheotomy with Bronchoscopic Guidance Pre-procedure Diagnosis & Indication: Chronic respiratory failure and need for ongoing mechanical ventilation Post-procedure Diagnosis: same as above Prior to Procedure: Informed Consent: The risks, benefits, indications, potential complications, and alternatives were explained to the patient/family and informed consent was obtained. Performed by: Yordan Nino DO Supervisor [facility]: Anushka ROCK. Bronchoscopy Supervisor [facility]: Rae Leigh Preprocedure: The identity of the patient was confirmed and a bedside time out was performed. [place] protocol was followed for this procedure. Prior to the initiation of sedation or the procedure, a timeout was performed. The patients identity was verified by confirming the patients wrist band for name , date of , and medical record number. Everyone in the room was in agreement with the patient identify, the procedure to be performed, consent was in place and matched the planned procedure, and the procedure site. The area was cleaned with a CHG scrub and draped with large sterile barrier. Hand hygiene was performed, and cap, mask, sterile gown, and sterile gloves were worn. The patient was covered by a large sterile drape. Sterile technique was maintained for the entire procedure. Anesthesia: The patient was intubated and sedated prior to the procedure. Additional midazolam and fentanyl was given for deep sedation. Please refer to the accompanying procedural sedation form for additional details. Once the patient was adequately sedated, vecuronium was administered for paralysis. Description of Procedure: The patient was placed in the supine position. The anterior neck was prepped and draped in usual sterile fashion. 1% lidocaine was administered approximately 2 fingerbreadths above the sternal notch for local anesthesia. The bronchoscope was introduced through the endotracheal tube and the trachea was properly visualized. The endotracheal tube was then gradually withdrawn within the trachea under direct bronchoscopic visualization. The area of the surgical site was initially transilluminated, and proper midline position was confirmed by bouncing the needle from the tracheostomy tray over the trachea with bronchoscopic examination. The needle was advanced into the trachea and proper positioning was confirmed with direct visualization. The needle was then removed leaving a white outer cannula in position. The wire from the tracheostomy tray was then advanced through the white outer cannula. The cannula was then removed. The small, blue dilators were then advanced over the wire into the trachea singlely in increasing ukrainian. Once proper dilatation was achieved, the dilators were removed. The large, tapered dilator was then advanced over the wire into the trachea. The dilator was removed leaving the wire and white inner cannula in position. A number 6 percutaneous Shiley tracheostomy tube was then advanced over the wire and white inner cannula into the trachea. Proper positioning was confirmed with bronchoscopic visualization. The tracheostomy tube was then sutured in place with four nylon sutures. It was further secured with a tracheostomy tie. Estimated blood loss: Less than 5 mL. Complications: None immediate.
[2018-07-21] MEDS ORDERED: METHYLNALTREXONE BROMIDE 12 MG/0.6 ML VIAL SQ ONE (09:00)
--- NOTE | 2018-07-21 09:11 | Critical Care Progress Note ---
Date of Service July 21, 2018 Supervising Physician Co-Signing Physician Notes Critically Ill: 62-year-old male with severe end-stage COPD and severe pulmonary Hypertension PLAN: Neuro: Analgesia -Transition from fentanyl to 10 mg oxycodone every 6 Resp: Acute hypercarbic hypoxic respiratory failure Severe COPD -Status post tracheostomy postop day 0 -Will start trach training tomorrow Severe pulmonary hypertension -Now off vasoactive's for 24 hours -No significant change in hemodynamics CV: Poor cardiac index: Resolved Biventricular heart failure -Reviewd Cardiology consult Fluids/Renal: Aggressive diuresis: Same regimen is yesterday -500 mg Diamox x1 -Lasix 40 mg x 1 Hypophosphatemia -Neutra-Phos replacement ID: 7-day course of cefuroxime -Reviewed bronchial washings species, given improvement vent settings think this is colonization GI/Nutrition: Tolerating tube feeds at goal -Transition to core-safe Constipation -Methylnaltrexone x1 today Pepcid for GI prophylaxis Heme: Anemia DVT prophylaxis: Lovenox Endocrine: ICU hyperglycemia protocol Vascular access: Peripheral IVs Code Status: Full code Discussed with SCI : I have discussed the patient's course with his sister as well as his mother who provided consent for tracheostomy. Patient was discussed in multidisciplinary rounds. I have personally spent 45 minutes of critical care time in the direct management of this patient. This is a life/limb threatening event. This includes time spent evaluating patient, direct bedside care, chart review, placing orders, interpretation of diagnostic studies, discussion with consultants, patient, and/or family members regarding treatment decisions, as well as other required patient management activities. This time is exclusive of all separately billable procedures, and teaching time and separate from and in addition to any other critical care service time. Subjective No overnight events. Arouses to verbal stimuli follows complex commands. Has not moved bowels however is frequently passing flatus Physical Exam 2 Vital Signs (Past 24 Hours): Last Vital Signs Temp 36.6 C 07/21/18 06:00 Pulse 103 H 07/21/18 08:41 Resp 24 07/21/18 08:41 BP 114/74 07/21/18 06:00 Pulse Ox 99 07/21/18 08:41 General: RASS 0. nontoxic. Skin: Warm, dry, Head: Atraumatic Ears, nose, mouth and throat: Airway obscured by endotracheal tube Cardiovascular: Normal peripheral perfusion Respiratory: no respiratory distress distant lung sounds Gastrointestinal: Non distended Musculoskeletal: No deformity Patient arouses to voice, follows complex commands, appears to assent to procedure.
--- NOTE | 2018-07-21 09:13 | Post Anesthesia Assessment ---
Date of Service July 21, 2018 Post Sedation Assessment Vital Signs Temp Pulse Pulse Resp BP Pulse Ox 07/21/18 08:41 103 H 24 99 07/21/18 08:19 24 07/21/18 06:00 36.6 C 95 H 114/74 97 07/21/18 05:06 94 H 24 97 07/21/18 05:00 99 H 112/73 97 07/21/18 04:00 36.6 C 97 H 115/75 97 07/21/18 03:00 93 H 112/70 97 07/21/18 02:10 96 H 24 96 07/21/18 02:00 97 H 114/72 96 07/21/18 01:00 96 H 118/73 96 07/21/18 00:53 99 H 07/21/18 00:05 36.8 C 07/21/18 00:00 100 H 118/74 96 07/20/18 23:24 96 H 24 95 07/20/18 23:00 36.8 C 98 H 134/81 94 07/20/18 22:00 100 H 124/76 98 07/20/18 21:00 95 H 111/64 97 07/20/18 20:51 94 H 24 98 07/20/18 20:00 97 H 120/71 96 07/20/18 19:00 36.6 C 98 H 116/69 96 07/20/18 18:15 103 H 24 96 07/20/18 14:57 107 H 24 96 07/20/18 14:00 101 H 128/84 96 07/20/18 13:35 105 H 24 95 07/20/18 13:00 111 H 96 07/20/18 12:00 36.4 C L 105 H 143/87 H 97 07/20/18 11:25 111 H 117 H 24 95 07/20/18 11:00 105 H 129/76 97 07/20/18 10:00 103 H 127/76 97 Recovery Score Activity: Moves 4 extremities Respiration: Deep Breath/Cough Circulation: +/-20% PreAnes Value Consciousness: Fully Awake Oxygen Saturation: > 92% On Room Air Discharge Sedation Level of Care: Higher Level of Care (patient to remain in ICU as previously admitted) Post Sedation Plan Procedure will start time was 1025 procedure end time was 1055 All medications were given per my order.
--- NOTE | 2018-07-21 09:26 | XRay Report ---
XR chest 1V portable CLINICAL HISTORY: 62 years-old Male presenting with New Tracheostomy. TECHNIQUE: Portable upright AP view of the chest was obtained. COMPARISON: 07/20/2018. FINDINGS: Tracheostomy tube now in place. Feeding catheter containing guidewire terminates in the gastric fundu s. Numerous overlying external leads. Cardiomediastinal silhouette normal. Lungs are hyperinflated. D iffusely heterogeneous lung markings. Irregular opacities in the right upper lung are unchanged. No n ew focal opacity. No large effusion or pneumothorax. Osseous structures normal. Upper abdomen normal. IMPRESSION: 1. Tracheostomy tube now in place. 2. Weighted feeding catheter terminates in the gastric fundus; advancement to the proximal small bow el recommended. 3. Underlying emphysema. Electronically signed by: Wayne Rojo M.D. 07/21/2018 9:25 AM
[2018-07-21] MEDS ORDERED: acetaZOLAMIDE 500 MG in SYRINGE 0 ML IV ONE (09:30)
[2018-07-21] MEDS ORDERED: FUROSEMIDE 40 MG in SYRINGE 0 ML IV ONE (09:45)
[2018-07-21] MEDS ORDERED: POT PHOSPHATE MONOBASIC W/ SOD TAB PO ONE (09:45)
[2018-07-21] MEDS: OXYCODONE HCL SOLN 5 MG/5 ML UDC PO SCH ×3 (09:47→21:09)
[2018-07-21] MEDS: cefUROXime axetil 500 MG TAB PO SCH (09:47)
[2018-07-21] MEDS: ASPIRIN 81 MG CHEW NG SCH (09:47)
[2018-07-21] MEDS: DOCUSATE SODIUM SYRUP 100 MG/10 ML UDC PO SCH ×2 (09:47→21:09)
[2018-07-21] MEDS: FAMOTIDINE 20 MG in SYRINGE 3 ML IV SCH ×2 (10:50→21:09)
--- NOTE | 2018-07-21 11:23 | Palliative Care Progress Note ---
Date of Service July 21, 2018 Assessment & Plan (1) Goals of care, counseling/discussion: -62 year old male with PMH severe COPD, dependent on oxygen, incarcerated inmate, history of hepatitis B, liver cirrhosis, and others, presented with acute respiratory failure requiring intubation. Failed attempts at weaning from ventilator. Decision was made yesterday by patient's familiy to proceed with trach placement. -Trach placed this morning. Patient tolerated well and is stable. -He will need transfer to [facility] that can meet his needs. Case management on board. For now, continue current treatment. -Patient is now DNR in event of cardiac arrest. (2) Acute systolic CHF (congestive heart failure), NYHA class 2: (3) Non-ST elevated myocardial infarction (non-STEMI): (4) Cirrhosis: (5) COPD (chronic obstructive pulmonary disease): Subjective Patient's family decided to proceed with trach, which patient did receive this morning. He remains on versed gtt but is awake and following commands. Review of Systems Unobtainable due to cognitive status Physical Exam Vital Signs (Past 24 Hours): Last Vital Signs Temp 36.6 C 07/21/18 06:00 Pulse 95 H 07/21/18 09:00 Resp 24 07/21/18 10:50 BP 114/74 07/21/18 06:00 Pulse Ox 99 07/21/18 08:41 Constitutional: + ill appearing; no acute distress ENMT: external ear and nose normal, oropharynx normal Neck: tracheostomy present Respiratory: normal respiratory effort, lungs clear to auscultation A uscultation: + diminished lung sounds Cardiovascular: Rate/Rhythm: regular rate, regular rhythm and + tachycardic Gastrointestinal (Abdomen): Inspection/Auscultation: abdomen normal to inspection and normal bowel sounds Neurologic: + not awake (sedated but does wake to verbal stimuli and follows commands) Time Spent Midlevel 25 minutes with >50% of time spent at bedside with patient and IDT in rounds discussing case and coordinating care.
[2018-07-21] MEDS: ENOXAPARIN INJ 40 MG/0.4 ML SYR SQ SCH (11:38)
[2018-07-21] MEDS: IMPACT LIQD 1.0 CAL 1,000 ML BAG OG SCH (11:39)
[2018-07-21] MEDS ORDERED: predniSONE 20 MG TAB PO SCH (12:00)
[2018-07-21] MEDS ORDERED: LIDOCAINE HCL 2% 2 ML VIAL/AMP(20MG/ML) INFIL ONE (15:00)
[2018-07-21] MEDS: MIDAZOLAM HCL 125 MG/250 ML BAG IV SCH (15:38)
--- NOTE | 2018-07-21 17:58 | Hospitalist Progress Note ---
Date of Service July 21, 2018 Assessment & Plan (1) Acute respiratory failure with hypoxia: Status post tracheostomy today by critical care Dr. Nion Remains on vent, Awake and alert, off sedation Appreciate input and help from critical care Due to combination of COPD exacerbation/severe ischemic cardia myopathy biventricular heart failure with decompensated CHF Sent from correctional facility/[facility] at [facility] with acute respiratory failure/hypoxia was lethargic/intubated Patient was intubated in ER for airway protection Prior history of advanced COPD: Gold stage III, Patient required continued with IV steroids, nebulizer treatment, respiratory support with long-term mechanical ventilation: Status post tracheostomy today Status post bronchoscopy 07/14/2018 Showed thick secretions /bilateral mucous plugging, cleared with suction started empirically on cefuroxime Severe ischemic cardiomyopathy with EF 20%-noted in echo Cardiology evaluation appreciated Appreciate input from cardiology (2) Non-ST elevated myocardial infarction (non-STEMI): Type II MN/non-ST elevated MN: N/A setting of demand ischemia, severe cardiomyopathy Presented with hypoxia, shortness of breath, leading to respiratory failure elevated troponins 0.092-1.210-1.150 Echo: 07/14/2018 1.Normal LV size with severely reduced systolic function: EF 20-25% global akinesis 2. Normal right ventricular size with severely reduced systolic function. The basal portion of the right ventricle free wall appears to be normally contracted , but otherwise right ventricle appears severely hypokinetic to akinetic 3. Small pericardial effusion, along the right ventricular free wall . No echocardiographic evidence of tamponade physiology. Unknown baseline type II non-ST elevated MN/demand ischemia in the setting of respiratory failure/ hypoxia Cardiology consulted appreciate input On dobutamine gtt for severe cardiomyopathy/biventricular heart failure (3) Acute systolic CHF (congestive heart failure), NYHA class 2: severe ischemic cardiomyopathy with EF of 20-25%, with global hypokinesis with biventricular heart failure, Presents with shortness of breath, chest x-ray shows volume overload Lung auscultation coarse Rales bilaterally Remains on mechanical ventilation Monitor volume status, intake output IV Lasix not ordered, no evidence of volume overload Cardiology consulted appreciate input pt's Echocardiogram indicates biventricular heart failure - Overall prognosis remains very poor (4) COPD (chronic obstructive pulmonary disease): Baseline advanced COPD, recent admission few months back at [facility] with COPD exacerbation Presented with hypoxia, respiratory failure, due to COPD exacerbation requiring mechanical ventilation, bronchoscopy evaluation Failed weaning trial from mechanical ventilation, multiple time Appreciate input from pulmonary/critical care Status post tracheostomy for long-term ventilation (5) GERD (gastroesophageal reflux disease): Continue PPI (6) Hyperglycemia: Monitor blood sugar, in setting of high dose of IV steroids Pharmacy glycemic management per ICU protocol Hb A1c 5.4 CODE STATUS: Full code DVT prophylaxis: Subcu heparin, Disposition: Patient is status post tracheostomy mechanical ventilator dependent Will need long-term care facility with vent support Subjective Status post tracheostomy today, Patient seen postprocedure, awake and alert Trying to communicate Physical Exam 2 Vital Signs (Past 24 Hours): Last Vital Signs Temp 36.7 C 07/21/18 16:00 Pulse 90 07/21/18 16:00 Resp 24 07/21/18 16:00 BP 123/79 07/21/18 16:00 Pulse Ox 98 07/21/18 16:00 Constitutional: + ill appearing Neck: Status post tracheostomy Respiratory: Auscultation: + crackles and + rales Cardiovascular: Rate/Rhythm: regular rate and regular rhythm Vessels: no JVD Extremities: no pedal edema and no edema Neurologic: awake
--- NOTE | 2018-07-21 19:46 | Cardiology Progress Note ---
Date of Service July 21, 2018 Assessment & Plan (1) Respiratory failure: (2) Biventricular heart failure: Pt with h/o ischemic CM. Unable to be weaned from mechanical ventilation, now s/p tracheostomy. Appears comfortable. BP stable. Will slowly add appropriate medications for h/o ischemic CM, starting with metoprolol tartrate (given need to administer via NG tube). As BP tolerates will add ACEI or ARB. Continue lovenox for DVT prophylaxis. Subjective CC: follow up cardiomyopathy , ventilator dependent respiratory failure S: Pt seen post tracheostomy procedure. He is comfortable. Dobutamine has been weaned to off. SR in the 70-80s notes on telemetry. Physical Exam 2 Vital Signs (Past 24 Hours): Last Vital Signs Temp 36.7 C 07/21/18 16:00 Pulse 90 07/21/18 16:00 Resp 24 07/21/18 16:00 BP 123/79 07/21/18 16:00 Pulse Ox 98 07/21/18 16:00 Constitutional: + thin and + cachectic Respiratory: Auscultation: + diminished lung sounds (at basese); no crackles and no rales Cardiovascular: Rate/Rhythm: regular rate and regular rhythm Heart Sounds: no murmur Extremities: no edema Neurologic: no focal deficits, responds to verbal stimuli now that he is off sedation _ (1) Respiratory failure Chronicity: acute on chronic Respiratory failure complication: hypoxia and hypercapnia Qualified Code(s): J96.21 - Acute and chronic respiratory failure with hypoxia; J96.22 - Acute and chronic respiratory failure with hypercapnia
[2018-07-22] MEDS: IPRATROPIUM BROMIDE NEB SOLN 0.02% 2.5 ML VIAL NEB SCH ×7 (00:17→23:21)
[2018-07-22] MEDS: LEVALBUTEROL 1.25MG/0.5ML NEB INH SCH ×7 (00:17→23:21)
[2018-07-22] MEDS: OXYCODONE HCL SOLN 5 MG/5 ML UDC PO SCH ×4 (03:30→21:17)
[2018-07-22 05:16] LABS: Calcium 8.2 mg/dl (8.5-10.1); Creatinine Clr Calc Pharmacy 109.6 ml/min; Est GFR (African American) 126.7; Est GFR (Non-African American) 109.3; Magnesium 2.3 mg/dl (1.8-2.4); Phosphorus 2.7 mg/dl (2.5-4.9); Potassium 3.7 mmol/L (3.5-5.1)
[2018-07-22 05:26] LABS: Eosinophils # (auto) 0.01 K/uL (0-0.5); Eosinophils % (auto) 0.1 %; Hematocrit (blood only) 34.4 % (42-52); Hemoglobin 11.4 g/dL (14.0-18.0); Immature Granulocytes # (auto) 0.14 K/uL (0.00-0.02); Lymphocytes # (auto) 1.33 K/uL (1.2-3.4); Lymphocytes % (auto) 9.2 %; Mean Corpuscular Hgb Conc 33.1 g/dL (32-36); Mean Corpuscular Volume 90.3 fL (80-100); Mean Platelet Volume 9.5 fL (7.4-10.4); Monocytes # (auto) 0.62 K/uL (0.11-0.59); Monocytes % (auto) 4.3 %; Neutrophils % (auto) 85.4 %; Platelet Count 164 K/uL (130-400); RDW Coefficient of Variation 14.8 % (11.5-14.5); RDW Standard Deviation 48.1 fL (36.4-46.3); Red Blood Count 3.81 M/uL (4.7-6.1)
[2018-07-22] MEDS: INSULIN ASPART 100 UNITS/ML 3 ML PEN SC SCH ×5 (06:33→23:51)
--- NOTE | 2018-07-22 07:55 | Critical Care Progress Note ---
Date of Service July 22, 2018 Assessment & Plan (1) COPD (chronic obstructive pulmonary disease): Critically Ill: 62-year-old male with severe end-stage COPD and severe pulmonary Hypertension PLAN: Neuro: Analgesia -Weaning oxycodone the next several days, 5 mg today and dosing interval to discontinue Resp: Acute hypercarbic hypoxic respiratory failure Severe COPD -Status post tracheostomy postop day 1 -Transition to CPAP ventilation with possible trach trials -Patient does continue to have apneic periods with decreasing opiates and addition of Provigil this will hopefully be resolved. Severe pulmonary hypertension: Resolved CV: Poor cardiac index: Resolved Biventricular heart failure -Reviewd Cardiology consult Fluids/Renal: Diuresis: - 40 mg Lasix daily - daily Spironolactone Hypokalemia -9 mmol K-Phos ID: 7-day course of cefuroxime finished yesterday -Reviewed bronchial washings species, given improvement vent settings think this is colonization GI/Nutrition: Tolerating tube feeds at goal -Transition to core-safe Constipation -KUB: coresafe his gastric in the fundus -Will give neostigmine for constipation if no indication of obstruction Pepcid for GI prophylaxis Heme: Anemia DVT prophylaxis: Lovenox Endocrine: ICU hyperglycemia protocol Aggressive PT OT mobilization Skin: Decubiti over the presacral area: Continued observation, I first learned of this after reviewing the chart and seeing wound care images. Vascular access: Peripheral IVs Code Status: Full code Supervising Physician Co-Signing Physician Notes Critically Ill: 62-year-old male with severe end-stage COPD and severe pulmonary Hypertension PLAN: Neuro: Analgesia -Weaning oxycodone the next several days, 5 mg today and dosing interval to discontinue Resp: Acute hypercarbic hypoxic respiratory failure Severe COPD -Status post tracheostomy postop day 1 -Transition to CPAP ventilation with possible trach trials -Patient does continue to have apneic periods with decreasing opiates and addition of Provigil this will hopefully be resolved. Severe pulmonary hypertension: Resolved CV: Poor cardiac index: Resolved Biventricular heart failure -Reviewd Cardiology consult Fluids/Renal: Diuresis: - 40 mg Lasix daily - daily Spironolactone Hypokalemia -9 mmol K-Phos ID: 7-day course of cefuroxime finished yesterday -Reviewed bronchial washings species, given improvement vent settings think this is colonization GI/Nutrition: Tolerating tube feeds at goal -Transition to core-safe Constipation -Checking KUB for progression of course safe feeding tube -Will give neostigmine for constipation if no indication of obstruction Pepcid for GI prophylaxis Heme: Anemia DVT prophylaxis: Lovenox Endocrine: ICU hyperglycemia protocol Aggressive PT OT mobilization Skin: Decubiti over the presacral area: Continued observation, I first learned of this after reviewing the chart and seeing wound care images. Vascular access: Peripheral IVs Code Status: Full code Patient was discussed in multidisciplinary rounds, I discussed this case with case management, Jessica Hidalgo. Patient would be stable for long-term vent facility at this point I would consider the patient to be chronically vent dependent and would benefit from long-term acute care. Subjective Review of Systems Unable to assess review of systems secondary to patient being trached on ventilator and sedated Physical Exam Vital Signs (Past 24 Hours): Last Vital Signs Temp 36.7 C 07/22/18 07:00 Pulse 89 07/22/18 07:00 Resp 24 07/22/18 06:29 BP 117/78 07/22/18 07:00 Pulse Ox 98 07/22/18 07:00 Constitutional: + frail appearing, comfortable and + mechanically ventilated Neck: trachea midline Tracheostomy is midline, patent airway Respiratory: Lungs clear diminished all lobes bilaterally, chest symmetrical, breasts unlabored on the ventilator Cardiovascular: S1-S2 auscultated, good peripheral perfusion, +2 pedal and radial pulses bilaterally Gastrointestinal (Abdomen): Abdomen soft nontender, active bowel sounds in all 4 quadrants auscultated Skin: Skin intact Neurologic: Patient obeys commands Genitourinary: Al[place], adequate urine output Results & Data Laboratory Results Laboratory Results - last 24 hr 07/21/18 07/22/18 07/22/18 23:58 04:24 04:24 WBC 14.40 H RBC 3.81 L Hgb 11.4 L Hct 34.4 L MCV 90.3 MCH 29.9 MCHC 33.1 RDW Std Deviation 48.1 H RDW Coeff of Leann 14.8 H Plt Count 164 MPV 9.5 Immature Gran % (Auto) 1.0 Neut % (Auto) 85.4 Lymph % (Auto) 9.2 Huron % (Auto) 4.3 Eos % (Auto) 0.1 Baso % (Auto) 0.0 Immature Gran # (Auto) 0.14 H Neut # (Auto) 12.30 H Lymph # (Auto) 1.33 Huron # (Auto) 0.62 H Eos # (Auto) 0.01 Baso # (Auto) 0.00 Sodium 135 L Potassium 3.7 D Chloride 99 Carbon Dioxide 31 Anion Gap 5.0 BUN 43 H Creatinine 0.57 L Est Cr Clr Drug Dosing 109.6 Est GFR ( Amer) 126.7 Est GFR (Non-Af Amer) 109.3 BUN/Creatinine Ratio 76.0 H Glucose 144 H POC Glucose 116 H Calcium 8.2 L Phosphorus 2.7 Magnesium 2.3 07/22/18 07/22/18 06:28 11:28 WBC RBC Hgb Hct MCV MCH MCHC RDW Std Deviation RDW Coeff of Leann Plt Count MPV Immature Gran % (Auto) Neut % (Auto) Lymph % (Auto) [place] % (Auto) Eos % (Auto) Baso % (Auto) Immature Gran # (Auto) Neut # (Auto) Lymph # (Auto) [place] # (Auto) Eos # (Auto) Baso # (Auto) Sodium Potassium Chloride Carbon Dioxide Anion Gap BUN Creatinine Est Cr Clr Drug Dosing Est GFR ( Amer) Est GFR (Non-Af Amer) BUN/Creatinine Ratio Glucose POC Glucose 134 H 100 H Calcium Phosphorus Magnesium Medications Administered Home Medications Home Medications fluticasone-salmeterol [Advair Diskus] 1 inh INHALATION BID 03/19/18 [History Confirmed 07/14/18] montelukast [Singulair] 10 mg PO QAM 03/19/18 [History Confirmed 07/14/18] spironolactone [Aldactone] 25 mg PO QAM 03/19/18 [History Confirmed 07/14/18] ipratropium-albuterol 3 ml INHALATION QID 7 Days #126 ml 03/26/18 [Rx Confirmed 07/14/18] guaifenesin 400 mg PO TID 07/14/18 [History Confirmed 07/14/18] levalbuterol tartrate [Xopenex HFA] 2 inh INHALATION TID PRN 07/14/18 [History Confirmed 07/14/18] prednisone 40 mg PO DAILY 07/14/18 [History Confirmed 07/14/18] tiotropium bromide [Spiriva with HandiHaler] 1 cap INHALATION DAILY 07/14/18 [History Confirmed 07/14/18] Active Medications Aspirin (Aspirin Chew) 81 mg NG DAILY [facility] Stop: 08/14/18 11:44 Last Admin: 07/22/18 08:46 Dose: 81 mg Documented by: Dextrose (Dextrose 50%) 25 - 50 ml IV UD PRN; Protocol PRN Reason: Hypoglycemia Protocol Stop: 08/13/18 10:58 Docusate Sodium (Colace) 100 mg PO BID [facility] Stop: 08/19/18 10:44 Last Admin: 07/22/18 08:46 Dose: 100 mg Documented by: Enoxaparin Sodium (Lovenox) 40 mg SQ Q24H [facility] Stop: 08/13/18 11:59 Last Admin: 07/22/18 12:54 Dose: 40 mg Documented by: Enteral Nutritional Formula (Impact 1.0 Galo) 1,000 ml OG UD [facility]; Protocol Stop: 08/16/18 09:14 Last Admin: 07/22/18 12:56 Dose: 1,000 ml Documented by: Furosemide (Lasix) 40 mg PO DAILY [facility] Stop: 08/21/18 08:59 Last Admin: 07/22/18 09:42 Dose: 40 mg Documented by: Glucagon (Glucagen) 1 mg SQ UD PRN; Protocol PRN Reason: Hypoglycemia Protocol Stop: 08/13/18 10:58 Glucose (Glucose 40%) 15 - 30 gm PO UD PRN; Protocol PRN Reason: Hypoglycemia Protocol Stop: 08/13/18 10:58 Glucose (Dex4 Glucose) 4 - 8 tabs PO UD PRN; Protocol PRN Reason: Hypoglycemia Protocol Stop: 08/13/18 10:58 Famotidine 20 mg/ Syringe 5 mls @ 2.5 mls/min IV Q12 [facility] Stop: 08/13/18 11:29 Last Admin: 07/22/18 08:46 Dose: 2.5 mls/min Documented by: Insulin Aspart (Novolog Flexpen) 0 units SC Q6H [facility] Stop: 08/13/18 11:59 Last Admin: 07/22/18 12:46 Dose: 1 units Documented by: Ipratropium Parkin (Atrovent 0.02% 0.5mg/2.5ml) 0.5 mg NEB Q4R [facility] Stop: 08/13/18 11:59 Last Admin: 07/22/18 15:03 Dose: 0.5 mg Documented by: Lactulose (Chronulac) 30 gm PO Q8H PRN PRN Reason: Constipation Stop: 08/16/18 08:32 Last Admin: 07/20/18 21:35 Dose: 30 gm Documented by: Levalbuterol HCl (Xopenex 1.25mg/0.5ml Neb) 1.25 mg INH Q4R [facility] Stop: 08/16/18 15:59 Last Admin: 07/22/18 15:03 Dose: 1.25 mg Documented by: Metoprolol Tartrate (Lopressor) 12.5 mg PO BID [facility] Stop: 08/21/18 08:59 Last Admin: 07/22/18 08:46 Dose: 12.5 mg Documented by: Mineral Oil (Fleet Oil) 133 ml NV DAILY PRN PRN Reason: Constipation Stop: 08/19/18 10:41 Last Admin: 07/20/18 11:50 Dose: 133 ml Documented by: Miscellaneous (Carbohydrates For Hypoglycemia) 15 - 30 gm PO UD PRN PRN Reason: Hypoglycemia Treatment Stop: 08/13/18 10:58 Modafinil (Provigil) 100 mg PO DAILY [facility] Stop: 08/22/18 08:59 Multivitamins/Minerals (Cerovite Liquid) 15 ml PO DAILY [facility] Stop: 08/21/18 08:59 Last Admin: 07/22/18 09:42 Dose: 15 ml Documented by: Oxycodone HCl (Roxicodone) 5 mg PO Q6H [facility]; Taper Stop: 07/25/18 08:59 Last Admin: 07/22/18 15:38 Dose: 5 mg Documented by: Prednisone (Prednisone) 40 mg PO DAILY [facility]; Taper Stop: 08/02/18 08:59 Last Admin: 07/22/18 08:46 Dose: 40 mg Documented by: Sodium Biphosphate/Sodium Phosphate (Fleet Enema) 132 ml NV DAILY PRN PRN Reason: Constipation Stop: 08/18/18 11:23 Last Admin: 07/19/18 12:46 Dose: 132 ml Documented by: Spironolactone (Aldactone) 25 mg PO DAILY [facility] Stop: 08/21/18 08:59 Last Admin: 07/22/18 09:41 Dose: 25 mg Documented by: Zinc Sulfate (Zinc Sulfate) 220 mg PO DAILY [facility] Stop: 08/21/18 09:14 Last Admin: 07/22/18 09:42 Dose: 220 mg Documented by:
--- NOTE | 2018-07-22 08:35 | XRay Report ---
KUB HISTORY: Status post placement of a feeding tube coresafe position COMPARISON: Chest radiograph 07/21/2018. FINDINGS: The bowel gas pattern is non-obstructive. Feeding tube is present, distal tip projected sup eriorly within the expected region of the gastric fundus. Moderate formed stool is noted throughout t he colon. There is no organomegaly. No renal calculi. No ureteral calculi. No pneumoperitoneum or pn eumatosis. No fracture. IMPRESSION: Feeding tube coils within the region of the stomach, distal tip projected superiorly within the regio n of the gastric fundus. Electronically signed by: Jason Marcus M.D. 07/22/2018 8:34 AM
[2018-07-22] MEDS: predniSONE 10 MG TABLET PO SCH (08:46)
[2018-07-22] MEDS: ASPIRIN 81 MG CHEW NG SCH (08:46)
[2018-07-22] MEDS: DOCUSATE SODIUM SYRUP 100 MG/10 ML UDC PO SCH ×2 (08:46→19:08)
[2018-07-22] MEDS: FAMOTIDINE 20 MG in SYRINGE 3 ML IV SCH ×2 (08:46→19:13)
[2018-07-22] MEDS: METOPROLOL TARTRATE 25 MG TAB PO SCH ×2 (08:46→19:09)
[2018-07-22] MEDS ORDERED: MODAFINIL 100 MG TAB PO SCH (09:00)
[2018-07-22] MEDS ORDERED: POTASSIUM PHOSPHATE 9 MMOL in SODIUM CHLORIDE 0.9% 250 ML IV ONE (09:15)
[2018-07-22] MEDS: SPIRONOLACTONE 25 MG TAB PO SCH (09:41)
[2018-07-22] MEDS: MULTI VIT W/MINERALS LIQUID 15 ML UDP PO SCH (09:42)
[2018-07-22] MEDS: ZINC SULFATE 220 MG CAPSULE PO SCH (09:42)
[2018-07-22] MEDS: FUROSEMIDE 40 MG TAB PO SCH (09:42)
[2018-07-22] MEDS ORDERED: NEOSTIGMINE METHYLSULFATE 1 MG/ML 10ML VIAL SQ ONE ×2 (11:30→18:45)
[2018-07-22] MEDS: ENOXAPARIN INJ 40 MG/0.4 ML SYR SQ SCH (12:54)
[2018-07-22] MEDS: IMPACT LIQD 1.0 CAL 1,000 ML BAG OG SCH (12:56)
[2018-07-22] MEDS ORDERED: NEOSTIGMINE METHYLSULFATE 1 MG/ML 10ML VIAL ONE (13:44)
--- NOTE | 2018-07-22 17:09 | Hospitalist Progress Note ---
Date of Service July 22, 2018 Assessment & Plan (1) Acute respiratory failure with hypoxia: Status post tracheostomy by critical care Dr. Nino POD #1 Off sedation, awake and alert, able to communicate Continued on mechanical ventilation on CPAP Patient will be on chronic vent dependent Appreciate input and help from critical care Presented with acute hypoxic respiratory failure due to combination of COPD exacerbation/severe ischemic cardiomyopathy biventricular heart failure with decompensated CHF Sent from correctional facility/detention at [facility] with acute respiratory failure/hypoxia was lethargic/intubated Patient was intubated in ER for airway protection Prior history of advanced COPD: Gold stage III, Patient required long-term mechanical ventilation Failed multiple weaning trial from ventilator : Status post tracheostomy 07/21/2018 Patient will need placement at long-term acute care with ventilatory support Social service following Status post bronchoscopy 07/14/2018 Showed thick secretions /bilateral mucous plugging, cleared with suction Treated empirically on cefuroxime Severe ischemic cardiomyopathy with EF 20%-noted in echo Cardiology consulted Appreciate input from cardiology Patient continued with scheduled diuresis, volume status stable (2) Non-ST elevated myocardial infarction (non-STEMI): Type II RI/non-ST elevated RI: N/A setting of demand ischemia, severe cardiomyopathy Presented with hypoxia, shortness of breath, leading to respiratory failure elevated troponins 0.092-1.210-1.150 Echo: 07/14/2018 1.Normal LV size with severely reduced systolic function: EF 20-25% global akinesis 2. Normal right ventricular size with severely reduced systolic function. The basal portion of the right ventricle free wall appears to be normally contracted, but otherwise right ventricle appears severely hypokinetic to akinetic 3. Small pericardial effusion, along the right ventricular free wall . No echocardiographic evidence of tamponade physiology. Unknown baseline type II non-ST elevated RI/demand ischemia in the setting of respiratory failure/ hypoxia Cardiology consulted appreciate input Was on dobutamine gtt for severe cardiomyopathy/biventricular heart failure Weaned off Cardiac output improved Patient started with metoprolol tartrate ( ischemic CM, ) Recommends as BP allows plan to add either ACEI or ARB (3) Acute systolic CHF (congestive heart failure), NYHA class 2: severe ischemic cardiomyopathy with EF of 20-25%, with global hypokinesis with biventricular heart failure, Presented with shortness of breath, acute respiratory failure Failed to wean off from mechanical ventilation Status post tracheostomy Started on beta-kyaw by cardiology Will be started on HANY inhibitor or ARB if blood pressure remains stable - (4) COPD (chronic obstructive pulmonary disease): Baseline advanced COPD, recent admission few months back at [facility] with COPD exacerbation Presented with hypoxia, respiratory failure, due to COPD exacerbation requiring mechanical ventilation, bronchoscopy Failed weaning trial from mechanical ventilation, multiple time Appreciate input from pulmonary/critical care Status post tracheostomy for long-term ventilation will need to transfer to long-term acute care facility with ventilatory support CODE STATUS: DNR/DNI (5) Discharge planning issues: DISPOSITION: Pt is a prisoner at [facility] Per [facility] patient will require transfer to [facility] as [facility] is not able to accommodate ventilator patients. appreciate input from Supervisor Seaming will D/w Family regarding feeding tube placement for cafeteria manager nutrition support prior to tx to [facility] Patient seen and examined in ICU: Room 106 Awake and alert, able to communicate with hand gestures Status post tracheostomy, on trach collar, tolerating well On tube feeding via NG tube Vitals remain stable Physical Exam Vital Signs (Past 24 Hours): Last Vital Signs Temp 36.6 C 07/22/18 16:00 Pulse 110 H 07/22/18 16:00 Resp 10 L 07/22/18 14:13 BP 134/85 07/22/18 16:00 Pulse Ox 96 07/22/18 16:00 Constitutional: + ill appearing; no acute distress Awake and alert Eyes: + anicteric sclerae ENMT: Mouth: + dry oral mucous membranes Neck: Status post tracheostomy Respiratory: normal respiratory effort, lungs clear to auscultation (On trach/on CPAP vent setting) no cough Auscultation: + diminished lung sounds; no crackles and no rales Cardiovascular: Rate/Rhythm: regular rate and regular rhythm Vessels: no JVD Extremities: no pedal edema and no edema Gastrointestinal (Abdomen): Percussion/Palpation: abdomen soft; abdomen nontender Musculoskeletal: Stage II sacral pressure ulcer noted Neurologic: moves all extremities and awake Able to communicate with hand gestures, status post tracheostomy unable to verbalize (1) COPD (chronic obstructive pulmonary disease) COPD type: unspecified COPD Qualified Code(s): J44.9 - Chronic obstructive pulmonary disease, unspecified
[2018-07-22] MEDS ORDERED: METOPROLOL TARTRATE 1 MG/ML VIAL IV STA (18:40)
[2018-07-23] MEDS ORDERED: METOPROLOL TARTRATE 1 MG/ML VIAL IV STA ×2 (01:27→07:05)
[2018-07-23] MEDS: OXYCODONE HCL SOLN 5 MG/5 ML UDC PO SCH ×3 (02:46→16:43)
[2018-07-23] MEDS: LEVALBUTEROL 1.25MG/0.5ML NEB INH SCH ×6 (03:36→23:09)
[2018-07-23] MEDS: IPRATROPIUM BROMIDE NEB SOLN 0.02% 2.5 ML VIAL NEB SCH ×6 (03:36→23:12)
[2018-07-23 05:35] LABS: Hematocrit (blood only) 39.3 % (42-52); Mean Corpuscular Hgb Conc 33.1 g/dL (32-36); Mean Platelet Volume 9.3 fL (7.4-10.4); Platelet Count 207 K/uL (130-400); RDW Coefficient of Variation 14.6 % (11.5-14.5); RDW Standard Deviation 48.2 fL (36.4-46.3); Red Blood Count 4.32 M/uL (4.7-6.1); White Blood Count 29.33 K/uL (4.8-10.8)
[2018-07-23 05:38] LABS: BUN Creatinine Ratio 81.5 (10-20); Calcium 8.3 mg/dl (8.5-10.1); Creatinine Clr Calc Pharmacy 144.3 ml/min; Est GFR (African American) 139.6; Est GFR (Non-African American) 120.4; Phosphorus 2.1 mg/dl (2.5-4.9); Potassium 3.5 mmol/L (3.5-5.1)
[2018-07-23 05:39] LABS: Basophils # (auto) 0.02 K/uL (0-0.2); Basophils % (auto) 0.1 %; Eosinophils # (auto) 0.01 K/uL (0-0.5); Immature Granulocytes # (auto) 0.28 K/uL (0.00-0.02); Lymphocytes # (auto) 1.79 K/uL (1.2-3.4); Lymphocytes % (auto) 6.1 %; Monocytes # (auto) 1.35 K/uL (0.11-0.59); Monocytes % (auto) 4.6 %; Neutrophils # (auto) 25.88 K/uL (1.4-6.5); Neutrophils % (auto) 88.2 %; RBC Morphology Unremarkable
[2018-07-23] MEDS: INSULIN ASPART 100 UNITS/ML 3 ML PEN SC SCH ×3 (05:45→17:47)
[2018-07-23] MEDS ORDERED: POTASSIUM PHOS 3 MMOL/1 ML INFUSION IV STA (05:46)
[2018-07-23] MEDS: IMPACT LIQD 1.0 CAL 1,000 ML BAG OG SCH (06:23)
[2018-07-23] MEDS ORDERED: POTASSIUM PHOSPHATE 15 MMOL in SODIUM CHLORIDE 0.9% 250 ML IV ONE (06:30)
--- NOTE | 2018-07-23 07:06 | Critical Care Progress Note ---
Date of Service July 23, 2018 Physical Exam Vital Signs (Past 24 Hours): Last Vital Signs Temp 36.8 C 07/23/18 04:23 Pulse 119 H 07/23/18 06:17 Resp 24 07/23/18 06:17 BP 132/78 07/23/18 02:00 Pulse Ox 92 07/23/18 06:17
[2018-07-23] MEDS ORDERED: CONSULT PHARMACY STA (07:55)
--- NOTE | 2018-07-23 08:27 | XRay Report ---
XR chest 1V portable HISTORY: 62 years-old Male Resp distress acute respiratory distress COMPARISON: Chest radiograph 07/21/2018 TECHNIQUE: Portable AP view of the chest FINDINGS: Cardiac mediastinal and hilar silhouettes are unchanged. Severe with bolus emphysema with chronic fib rotic changes. Stable positioning of the tracheostomy cannula. Distal tip of feeding tube projects linder periorly within the region of the gastric fundus. Telemetry leads coils about the right mid chest whi ch limits the study. Progressively worsened bibasilar opacities are noted, left greater than right. I nterval development of a small left pleural effusion. Degenerative changes of the shoulders and spine . IMPRESSION: 1. Interval development of left greater than right bibasilar opacities suggestive of pneumonia or asp iration pneumonitis. 2. New small left pleural effusion. 3. Severe bullous emphysema with chronic fibrotic changes. The above report was generated using voice recognition software. It may contain grammatical, syntax o r spelling errors. Electronically signed by: Jason Marcus M.D. 07/23/2018 8:26 AM
[2018-07-23] MEDS ORDERED: VANCOMYCIN CONSULT ACTIVE PRN (08:42)
[2018-07-23] MEDS ORDERED: NEOSTIGMINE METHYLSULFATE 1 MG/ML 10ML VIAL IV ONE (08:45)
[2018-07-23] MEDS ORDERED: VANCOMYCIN HCL 1,250 MG in SODIUM CHLORIDE 0.9% 250 ML IV ONE (08:45)
--- NOTE | 2018-07-23 09:09 | Critical Care Progress Note ---
Date of Service July 23, 2018 Assessment & Plan (1) COPD (chronic obstructive pulmonary disease): Critically Ill: 62-year-old male with severe end-stage COPD and severe pulmonary Hypertension PLAN: Neuro: Analgesia -Weaning oxycodone Resp: Acute hypercarbic hypoxic respiratory failure Severe COPD -Status post tracheostomy postop day 2 -Difficulty transitioning to pressure support ventilation this is likely secondary to the new developing pneumonia in the left lower lobe -Patient does continue to have apneic periods with decreasing opiates and addition of Provigil this will hopefully be resolved. Left lower lobe pneumonia -We will obtain bronchoscopy today -Expanding antibiotic coverage to include vancomycin and cefepime Will de-escalate based on bronchoscopy results Severe pulmonary hypertension: Resolved CV: Poor cardiac index: Resolved Biventricular heart failure -Reviewd Cardiology consult Fluids/Renal: Diuresis: - 40 mg Lasix daily - daily Spironolactone Hypokalemia - daily Neutra-Phos 1 tablet ID: 7-day course of cefuroxime finished New left lower lobe pneumonia -Cefepime vancomycin Diflucan GI/Nutrition: Tolerating tube feeds at goal -Tolerating course a Constipation -KUB: coresafe his gastric in the fundus -Subcutaneous neostigmine given yesterday no bowel movement will transition to IV neostigmine today Pepcid for GI prophylaxis Discussed with patient need for PEG tube he is agreeable to placement of PEG tube -GI consult Heme: Anemia DVT prophylaxis: Lovenox Endocrine: ICU hyperglycemia protocol Aggressive PT OT mobilization Skin: Decubiti over the presacral area. Vascular access: Peripheral IVs -Patient continually losing IV access secondary to anasarca will consent for PICC placement Code Status: Full code Patient critically ill due to new left lower lobe pneumonia with chronic ventilatory failure requiring tracheostomy. Patient was discussed in multidisciplinary rounds I discussed the case with the gastroenterology service. I have personally spent 40 minutes of critical care time in the direct management of this patient. This is a life/limb threatening event. This includes time spent evaluating patient, direct bedside care, chart review, placing orders, interpretation of diagnostic studies, discussion with consultants, patient, and/or family members regarding treatment decisions, as well as other required patient management activities. This time is exclusive of all separately billable procedures, and teaching time and separate from and in addition to any other critical care service time. Physical Exam Vital Signs (Past 24 Hours): Last Vital Signs Temp 36.8 C 07/23/18 04:23 Pulse 122 H 07/23/18 07:23 Resp 24 07/23/18 06:17 BP 143/90 H 07/23/18 07:23 Pulse Ox 92 07/23/18 07:01 General: Alert. nontoxic. Following complex commands Skin: Warm, dry, Head: Atraumatic Ears, nose, mouth and throat: No oozing around tracheostomy site Cardiovascular: Normal peripheral perfusion, tachycardic Respiratory: no respiratory distress scattered rhonchi Gastrointestinal: Non distended Musculoskeletal: No deformity Results & Data Laboratory Results 07/23/18 07/23/18 07/23/18 Range/Units 05:43 04:20 04:20 WBC 29.33 H D (4.8-10.8) K/uL RBC 4.32 L (4.7-6.1) M/uL Hgb 13.0 L (14.0-18.0) g/dL Hct 39.3 L (42-52) % MCV 91.0 (80-100) fL MCH 30.1 (25-34) pg MCHC 33.1 (32-36) g/dL RDW Std Deviation 48.2 H (36.4-46.3) fL RDW Coeff of Leann 14.6 H (11.5-14.5) % Plt Count 207 (130-400) K/uL MPV 9.3 (7.4-10.4) fL Immature Gran % (Auto) 1.0 % Neut % (Auto) 88.2 % Lymph % (Auto) 6.1 % [place] % (Auto) 4.6 % Eos % (Auto) 0.0 % Baso % (Auto) 0.1 % Immature Gran # (Auto) 0.28 H (0.00-0.02) K/uL Neut # (Auto) 25.88 H (1.4-6.5) K/uL Lymph # (Auto) 1.79 (1.2-3.4) K/uL [place] # (Auto) 1.35 H (0.11-0.59) K/uL Eos # (Auto) 0.01 (0-0.5) K/uL Baso # (Auto) 0.02 (0-0.2) K/uL RBC Morphology Unremarkable Sodium 135 L (136-145) mmol/L Potassium 3.5 (3.5-5.1) mmol/L Chloride 98 (98-107) mmol/L Carbon Dioxide 33 H (21-32) mmol/L Anion Gap 4.0 (3-11) BUN 37 H (7-18) mg/dl Creatinine 0.45 L (0.6-1.4) mg/dl Est Cr Clr Drug Dosing 144.3 ml/min Est GFR ( Amer) 139.6 Est GFR (Non-Af Amer) 120.4 BUN/Creatinine Ratio 81.5 H (10-20) Glucose 136 H (70-99) mg/dl POC Glucose 126 H (70-99) Calcium 8.3 L (8.5-10.1) mg/dl Phosphorus 2.1 L (2.5-4.9) mg/dl Magnesium 2.0 (1.8-2.4) mg/dl 07/22/18 07/22/18 07/22/18 Range/Units 23:46 18:05 11:28 WBC (4.8-10.8) K/uL RBC (4.7-6.1) M/uL Hgb (14.0-18.0) g/dL Hct (42-52) % MCV (80-100) fL MCH (25-34) pg MCHC (32-36) g/dL RDW Std Deviation (36.4-46.3) fL RDW Coeff of Leann (11.5-14.5) % Plt Count (130-400) K/uL MPV (7.4-10.4) fL Immature Gran % (Auto) % Neut % (Auto) % Lymph % (Auto) % [place] % (Auto) % Eos % (Auto) % Baso % (Auto) % Immature Gran # (Auto) (0.00-0.02) K/uL Neut # (Auto) (1.4-6.5) K/uL Lymph # (Auto) (1.2-3.4) K/uL [place] # (Auto) (0.11-0.59) K/uL Eos # (Auto) (0-0.5) K/uL Baso # (Auto) (0-0.2) K/uL RBC Morphology Sodium (136-145) mmol/L Potassium (3.5-5.1) mmol/L Chloride (98-107) mmol/L Carbon Dioxide (21-32) mmol/L Anion Gap (3-11) BUN (7-18) mg/dl Creatinine (0.6-1.4) mg/dl Est Cr Clr Drug Dosing ml/min Est GFR ( Amer) Est GFR (Non-Af Amer) BUN/Creatinine Ratio (10-20) Glucose (70-99) mg/dl POC Glucose 154 H 149 H 100 H (70-99) Calcium (8.5-10.1) mg/dl Phosphorus (2.5-4.9) mg/dl Magnesium (1.8-2.4) mg/dl Diagnostic Findings I reviewed the chest x-ray images performed today, there is a new left lower lobe infiltrate (1) COPD (chronic obstructive pulmonary disease) COPD type: unspecified COPD Qualified Code(s): J44.9 - Chronic obstructive pulmonary disease, unspecified
[2018-07-23] MEDS: FAMOTIDINE 20 MG TAB PO SCH ×2 (09:22→21:34)
[2018-07-23] MEDS: CEFEPIME 2,000 MG in SYRINGE 0 ML IV SCH ×2 (09:22→16:43)
[2018-07-23] MEDS: METOPROLOL TARTRATE 25 MG TAB PO SCH ×2 (09:22→21:34)
[2018-07-23] MEDS: ASPIRIN 81 MG CHEW NG SCH (09:24)
[2018-07-23] MEDS: MULTI VIT W/MINERALS LIQUID 15 ML UDP PO SCH (09:24)
[2018-07-23] MEDS: FUROSEMIDE 40 MG TAB PO SCH (09:24)
[2018-07-23] MEDS: SPIRONOLACTONE 25 MG TAB PO SCH (09:24)
[2018-07-23] MEDS: DOCUSATE SODIUM SYRUP 100 MG/10 ML UDC PO SCH ×2 (09:24→21:34)
[2018-07-23] MEDS: predniSONE 10 MG TABLET PO SCH (09:25)
[2018-07-23] MEDS: ZINC SULFATE 220 MG CAPSULE PO SCH (09:26)
[2018-07-23] MEDS: MODAFINIL 100 MG TAB PO SCH (09:27)
[2018-07-23] MEDS: FAMOTIDINE 20 MG in SYRINGE 3 ML IV SCH (10:58)
[2018-07-23] MEDS ORDERED: fentaNYL citrate 100 MCG/2 ML VIAL ONE (11:02)
[2018-07-23] MEDS ORDERED: MIDAZOLAM HCL 5 MG/ML 1 ML VIAL ONE (11:03)
[2018-07-23] MEDS ORDERED: fentaNYL citrate 100 MCG/2 ML VIAL IV STA (11:17)
[2018-07-23] MEDS ORDERED: MIDAZOLAM HCL 1 MG/ML 2ML VIAL IV ONE (11:18)
[2018-07-23] MEDS ORDERED: PHENYLEPHRINE HCL 10 MG/ML VIAL ONE (11:26)
--- NOTE | 2018-07-23 11:29 | Pre Anesthesia Assessment ---
Date of Service July 23, 2018 Pre Sedation Assessment Vital Signs Temp Pulse Resp BP Pulse Ox 07/23/18 08:00 107 H 20 93 07/23/18 07:23 122 H 143/90 H 07/23/18 07:01 121 H 92 07/23/18 07:00 121 H 143/90 H 92 07/23/18 06:17 119 H 24 92 07/23/18 06:00 119 H 128/78 92 07/23/18 05:00 112 H 126/73 94 07/23/18 04:23 36.8 C 07/23/18 04:00 109 H 122/75 93 07/23/18 03:36 107 H 93 07/23/18 03:00 109 H 144/85 H 92 07/23/18 02:31 105 H 21 93 07/23/18 02:00 100 H 132/78 92 07/23/18 01:33 118 H 142/86 H 07/23/18 01:32 116 H 142/86 H 92 07/23/18 01:00 118 H 140/89 92 07/23/18 00:00 37.1 C 118 H 146/90 H 93 07/22/18 23:33 110 H 23 90 07/22/18 23:00 109 H 171/102 H 90 07/22/18 22:00 109 H 168/97 H 90 07/22/18 21:00 105 H 172/106 H 91 07/22/18 20:31 102 H 180/105 H 93 07/22/18 20:04 112 H 27 H 96 07/22/18 20:00 37.2 C 102 H 183/109 H 93 07/22/18 19:13 111 H 145/90 H 07/22/18 19:00 112 H 145/90 H 94 07/22/18 17:50 111 H 12 94 07/22/18 16:00 36.6 C 110 H 134/85 96 07/22/18 15:00 99 H 142/89 H 97 07/22/18 14:13 99 H 10 L 96 07/22/18 14:01 101 H 96 07/22/18 14:00 101 H 157/93 H 96 07/22/18 13:00 99 H 132/83 97 07/22/18 12:00 103 H 154/90 H 96 Pre-Sedation Airway Assessment Smoking Status: Current every day smoker Notes The planned sedation has been discussed with the patient. Informed Consent was obtained. I have identified the patient, determined the appropriateness of sedation and have assessed the patient immediately prior to the procedure. All medicine(s) and interventions are by my order. Planned moderate to deep sedation Patient has secured airway with tracheostomy ASA class IV secondary to ischemic cardiomyopathy and severe COPD on ventilator Plan sedation Versed: 4 mg fentanyl
[2018-07-23] MEDS ORDERED: LORazepam 1 MG TAB PO PRN (11:30)
[2018-07-23] MEDS: FLUCONAZOLE 200 MG/100 ML BAG IV SCH ×2 (11:47→12:51)
[2018-07-23] MEDS: ENOXAPARIN INJ 40 MG/0.4 ML SYR SQ SCH (11:50)
--- NOTE | 2018-07-23 12:54 | Procedure Note ---
Procedure Note: Bronchoscopy Procedure Procedure date: July 23, 2018 Procedure: fiberoptic bronchoscopy Pre-procedure Diagnosis: Left lower lobe pneumonia new oxygen requirement Post-procedure Diagnosis: same as above Prior to Procedure: Informed Consent: The risks, benefits, indications, potential complications, and alternatives were explained to the patient and informed consent obtained. Attending Staff: Yordan Nino DO Resident/APC: Anushka ROCK Skin Prep: Not applicable Anesthesia: 4 mg Versed, 100 mcg fentanyl Indications: 62-year-old male with new onset infiltrates in the left lower lobe on chest x-ray, new oxygen requirement concern for left lower lobe pneumonia. The identity of the patient was confirmed and a bedside time out was performed. Description of Procedure: Fiberoptic bronchoscopy was performed via endotracheal tube. Bronchioalveolar lavage left lower lobe was performed. Findings included: Thin white secretions Complications: None Specimens: Bronchial washings sent for culture and Gram stain, cytology, fungal elements, and AFB stain and culture. Estimated blood loss: Zero
--- NOTE | 2018-07-23 12:54 | Post Anesthesia Assessment ---
Date of Service July 23, 2018 Post Sedation Assessment Vital Signs Temp Pulse Resp BP Pulse Ox 07/23/18 12:40 91 H 82/51 L 94 07/23/18 12:35 92 H 83/49 L 93 07/23/18 12:30 92 H 78/48 L 93 07/23/18 12:25 90 78/48 L 93 07/23/18 12:20 92 H 78/48 L 93 07/23/18 12:15 93 H 78/48 L 93 07/23/18 12:10 92 H 85/51 L 93 07/23/18 12:05 93 H 74/45 L 93 07/23/18 12:00 92 H 68/41 L 93 07/23/18 11:55 93 H 66/42 L 93 07/23/18 11:50 93 H 71/46 L 93 07/23/18 11:45 92 H 70/43 L 94 07/23/18 11:40 88 84/55 L 98 07/23/18 11:35 86 124/76 100 07/23/18 11:32 85 180/104 H 100 07/23/18 11:27 92 H 69/45 L 97 07/23/18 11:25 91 H 64/45 L 96 07/23/18 11:21 95 H 49/34 L 95 07/23/18 11:20 94 H 54/34 L 93 07/23/18 11:19 95 H 62/38 L 92 07/23/18 11:00 97 H 122/73 94 07/23/18 10:00 113 H 168/96 H 91 07/23/18 09:00 117 H 133/75 93 07/23/18 08:00 107 H 20 125/75 93 07/23/18 07:23 122 H 143/90 H 07/23/18 07:01 121 H 92 07/23/18 07:00 121 H 143/90 H 92 07/23/18 06:17 119 H 24 92 07/23/18 06:00 119 H 128/78 92 07/23/18 05:00 112 H 126/73 94 07/23/18 04:23 36.8 C 07/23/18 04:00 109 H 122/75 93 07/23/18 03:36 107 H 93 07/23/18 03:00 109 H 144/85 H 92 07/23/18 02:31 105 H 21 93 07/23/18 02:00 100 H 132/78 92 07/23/18 01:33 118 H 142/86 H 07/23/18 01:32 116 H 142/86 H 92 07/23/18 01:00 118 H 140/89 92 07/23/18 00:00 37.1 C 118 H 146/90 H 93 07/22/18 23:33 110 H 23 90 07/22/18 23:00 109 H 171/102 H 90 07/22/18 22:00 109 H 168/97 H 90 07/22/18 21:00 105 H 172/106 H 91 07/22/18 20:31 102 H 180/105 H 93 07/22/18 20:04 112 H 27 H 96 07/22/18 20:00 37.2 C 102 H 183/109 H 93 07/22/18 19:13 111 H 145/90 H 07/22/18 19:00 112 H 145/90 H 94 07/22/18 17:50 111 H 12 94 07/22/18 16:00 36.6 C 110 H 134/85 96 07/22/18 15:00 99 H 142/89 H 97 Recovery Score Activity: Moves 4 extremities Respiration: Deep Breath/Cough Circulation: +/-20% PreAnes Value Consciousness: Fully Awake Oxygen Saturation: > 92% On Room Air Post Sedation Plan On clinical assessment, the patient appears to have tolerated the sedation without complications. Patient is recovering as anticipated. Patient will continue to be monitored by nursing and may be discharged when sedation discharge criteria are met per below protocol. Patient will remain in the ICU as previously admitted. Patient given 4 mg Versed, 100 mcg fentanyl Procedural start time 1115 procedural end time 1130: Total procedural time 15 minutes Patient required 100 mcg IV phenylephrine for hypotension. Patient has returned to baseline.
[2018-07-23] MEDS ORDERED: NOREPINEPHRINE BIT INJ 8 MG in DEXTROSE 5% 500 ML IV SCH (12:55)
[2018-07-23] MEDS ORDERED: PHENYLEPHRINE 100MCG/ML 5ML SYR IV ONE (12:57)
--- NOTE | 2018-07-23 13:46 | Cardiology Progress Note ---
Date of Service July 23, 2018 Assessment & Plan (1) Biventricular heart failure: Added metoprolol two days ago for medical Rx of severe ischemic CM. Dose increased to 25 mg BID by critical care already. Hold of on HANY / AR due to low BP. No volume overload, do not think diuretics necessary at present. Subjective Chief Complaint: follow up cardiomyopathy Subjective: pt sedated at present. Had repeat bronchoscopy this am due to diff iculty with ventilation and LLL puemonia. Transient hypotension noted at time of bronchoscopy, trending toward improvement. Physical Exam Vital Signs (Past 24 Hours): Last Vital Signs Temp 36.8 C 07/23/18 04:23 Pulse 91 H 07/23/18 12:40 Resp 20 07/23/18 08:00 BP 82/51 L 07/23/18 12:40 Pulse Ox 94 07/23/18 12:40 Constitutional: + thin and + cachectic Respiratory: course BS at bases Cardiovascular: Rate/Rhythm: regular rate Heart Sounds: + murmur (I/ SM) Vessels: no JVD Extremities: no edema
--- NOTE | 2018-07-23 14:28 | Pharmacy Report ---
Pharmacy Abx Initial Consult - Date of Service July 23, 2018 - Pharmacy Dosing Scope Date of Consult: 07/23 Consultation requested by: Dr. Nino Pharmacy is consulted to initiate vancomycin IV/PO dosing therapy, order appropriate labs and adjust drug dose/frequency. - Subjective The patient is a 62 year old M admitted on 07/14/18 10:11. - Objective Height: 6 ft Weight: 57.7 kg Vital Signs (Past 12hrs): Vital Signs Temp Pulse Resp BP Pulse Ox 07/23/18 12:40 91 H 82/51 L 94 07/23/18 12:35 92 H 83/49 L 93 07/23/18 12:30 92 H 78/48 L 93 07/23/18 12:25 90 78/48 L 93 07/23/18 12:20 92 H 78/48 L 93 07/23/18 12:15 93 H 78/48 L 93 07/23/18 12:10 92 H 85/51 L 93 07/23/18 12:05 93 H 74/45 L 93 07/23/18 12:00 92 H 68/41 L 93 07/23/18 11:55 93 H 66/42 L 93 07/23/18 11:50 93 H 71/46 L 93 07/23/18 11:45 92 H 70/43 L 94 07/23/18 11:40 88 84/55 L 98 07/23/18 11:35 86 124/76 100 07/23/18 11:32 85 180/104 H 100 07/23/18 11:27 92 H 69/45 L 97 07/23/18 11:25 91 H 64/45 L 96 07/23/18 11:21 95 H 49/34 L 95 07/23/18 11:20 94 H 54/34 L 93 07/23/18 11:19 95 H 62/38 L 92 07/23/18 11:00 97 H 122/73 94 07/23/18 10:00 113 H 168/96 H 91 07/23/18 09:00 117 H 133/75 93 07/23/18 08:00 107 H 20 125/75 93 07/23/18 07:23 122 H 143/90 H 07/23/18 07:01 121 H 92 07/23/18 07:00 121 H 143/90 H 92 07/23/18 06:17 119 H 24 92 07/23/18 06:00 119 H 128/78 92 07/23/18 05:00 112 H 126/73 94 07/23/18 04:23 36.8 C 07/23/18 04:00 109 H 122/75 93 07/23/18 03:36 107 H 93 07/23/18 03:00 109 H 144/85 H 92 07/23/18 02:31 105 H 21 93 Lab Results (24hrs): Laboratory Tests (24 Hours) 07/23/18 07/23/18 04:20 04:20 WBC 29.33 H D Neut # (Auto) 25.88 H Creatinine 0.45 L Est Cr Clr Drug Dosing 144.3 Micro Results: 07/23/18 11:30 Fungal Smear - Pending Bronch Wash,Left Lower Lobe Fungal Culture - Pending 07/23/18 11:30 Gram Stain - Pending Bronch Wash,Left Lower Lobe Bronchoalveolar Lavage Culture - Pending 07/14/18 13:40 Fungal Smear - Final Bronch Washings Combined 07/14/18 08:25 Blood Culture - Final Blood No growth 07/14/18 08:20 Blood Culture - Final Blood No growth 07/14/18 13:40 Gram Stain - Final Bronch Washings Combined Bronchoalveolar Lavage Culture - Final Moderate normal negro. - Risk Factors for Resistance * Incarcerated * Hospitalization for 48 hours or more within the past 90 days * Current hospitalization > 5 days * Antimicrobial use within the last 90 days ceftin - Assessment & Plan Assessment 62 year old M admitted on 07/14 PMH includes severe COPD with oxygen requirements, hepatitis B, cirrhosis,prese nted with shortness of breath, intubated 07/14. Patient initially started on vancomycin and then changed to ceftin and completed 7 day course on 07/21. Bronchoscopy 07/14 grew normal negro, iban albicans Underwent tracheostomy on 07/21. Increasing leukocytosis and new LLL infiltrate on chest x-ray. Starting empiric vancomycin/cefepime/fluconazole. Underwent bronchoscopy today 07/23. Plan Vancomycin IV * Estimated PK Parameters: Vdf 0.7 , Noe 0.08 hr-1, t1/2 9 hr (used age adjusted maximum crcl 92) * Loading dose: 1250 mg (21 mg/kg) * Maintenance dose: 1000 mg IV (17mg/kg) every 12 hours * Goal trough level 15-20 mcg/mL * Trough ordered for 07/24 @ 0730 Cefepime currently dosed at 2 gm q8H for CrCL >60, fluconazole 400 mg daily appropriate for renal function Pharmacy will continue to follow and will adjust dose/frequency as necessary. Thank you.
--- NOTE | 2018-07-23 17:03 | Hospitalist Progress Note ---
Date of Service July 23, 2018 Assessment & Plan (1) Acute respiratory failure with hypoxia: Status post tracheostomy by critical care Dr. Nino on 07/21/18 awake and alert, able to communicate Continued on mechanical ventilation on CPAP Patient will be on chronic vent dependent-plan to tx pt to a facility with long term care administrator vent support /approved by [facility] referral made to [facility] pt will need PEG/Feeding tube placement for senior living nutrition support GI eval requested Appreciate input and help from critical care Presented with acute hypoxic respiratory failure due to combination of COPD exacerbation/severe ischemic cardiomyopathy biventricular heart failure with decompensated CHF Sent from correctional facility/[facility]-way at [facility] with acute respiratory failure/hypoxia was lethargic/intubated Patient was intubated in ER for airway protection Prior history of advanced COPD: Gold stage III, Patient required long-term mechanical ventilation Failed multiple weaning trial from ventilator : Status post tracheostomy 07/21/2018 Patient will need placement at long-term acute care with ventilatory support Social service following Status post bronchoscopy 07/14/2018 Showed thick secretions /bilateral mucous plugging, cleared with suction Treated empirically on cefuroxime Severe ischemic cardiomyopathy with EF 20%-noted in echo Cardiology consulted Appreciate input from cardiology Patient continued with scheduled diuresis, volume status stable (2) Non-ST elevated myocardial infarction (non-STEMI): Type II DE/non-ST elevated DE: N/A setting of demand ischemia, severe cardiomyopathy Presented with hypoxia, shortness of breath, leading to respiratory failure elevated troponins 0.092-1.210-1.150 Echo: 07/14/2018 1.Normal LV size with severely reduced systolic function: EF 20-25% global akinesis 2. Normal right ventricular size with severely reduced systolic function. The basal portion of the right ventricle free wall appears to be normally contracted, but otherwise right ventricle appears severely hypokinetic to akinetic 3. Small pericardial effusion, along the right ventricular free wall . No echocardiographic evidence of tamponade physiology. Unknown baseline type II non-ST elevated DE/demand ischemia in the setting of respiratory failure/ hypoxia Cardiology consulted appreciate input Was on dobutamine gtt for severe cardiomyopathy/biventricular heart failure Weaned off Cardiac output improved Patient started with metoprolol tartrate ( ischemic CM, ) Recommends as BP allows plan to add either ACEI or ARB (3) Acute systolic CHF (congestive heart failure), NYHA class 2: severe ischemic cardiomyopathy with EF of 20-25%, with global hypokinesis with biventricular heart failure, Presented with shortness of breath, acute respiratory failure Failed to wean off from mechanical ventilation Status post tracheostomy Started on beta-kyaw by cardiology Will be started on HANY inhibitor or ARB if blood pressure remains stable - (4) COPD (chronic obstructive pulmonary disease): Baseline advanced COPD, recent admission few months back at [facility] with COPD exacerbation Presented with hypoxia, respiratory failure, due to COPD exacerbation requiring mechanical ventilation, bronchoscopy Failed weaning trial from mechanical ventilation, multiple time Appreciate input from pulmonary/critical care Status post tracheostomy for long-term ventilation will need to transfer to long-term acute care facility with ventilatory support CODE STATUS: DNR/DNI (5) Discharge planning issues: DISPOSITION: Pt is a prisoner at [facility] Per [facility] patient will require transfer to [facility] as [facility] is not able to accommodate ventilator patients. appreciate input from [place] Operator will need feeding tube placement for senior living nutrition support prior to tx to [facility] Patient seen and examined in ICU: Room 106 Awake and alert, able to communicate with hand gestures s/p tracheostmy no complain of SOB denies of any discomfort afebrile , stable vitals Physical Exam Vital Signs (Past 24 Hours): Last Vital Signs Temp 36.8 C 07/23/18 04:23 Pulse 109 H 07/23/18 16:01 Resp 21 07/23/18 15:20 BP 113/70 07/23/18 16:00 Pulse Ox 95 07/23/18 16:01 Constitutional: + ill appearing; no acute distress Eyes: + anicteric sclerae ENMT: Mouth: + dry oral mucous membranes Neck: normal visual inspection and trachea midline Respiratory: normal respiratory effort, lungs clear to auscultation (On trach/on CPAP vent setting) no cough Auscultation: + diminished lung sounds; no crackles and no rales Cardiovascular: Rate/Rhythm: regular rate and regular rhythm Vessels: no JVD Extremities: no pedal edema and no edema Gastrointestinal (Abdomen): Percussion/Palpation: abdomen soft; abdomen nontender Neurologic: moves all extremities and awake (1) COPD (chronic obstructive pulmonary disease) COPD type: unspecified COPD Qualified Code(s): J44.9 - Chronic obstructive pulmonary disease, unspecified
[2018-07-23] MEDS ORDERED: VANCOMYCIN HCL 1,000 MG in SODIUM CHLORIDE 0.9% 250 ML IV SCH (20:00)
[2018-07-24] MEDS: CEFEPIME 2,000 MG in SYRINGE 0 ML IV SCH ×3 (00:23→17:24)
[2018-07-24] MEDS: OXYCODONE HCL SOLN 5 MG/5 ML UDC PO SCH ×3 (00:23→20:58)
[2018-07-24] MEDS: INSULIN ASPART 100 UNITS/ML 3 ML PEN SC SCH ×4 (00:24→17:29)
[2018-07-24] MEDS: LEVALBUTEROL 1.25MG/0.5ML NEB INH SCH ×6 (02:29→23:23)
[2018-07-24] MEDS: IPRATROPIUM BROMIDE NEB SOLN 0.02% 2.5 ML VIAL NEB SCH ×6 (02:29→23:23)
[2018-07-24 04:47] LABS: BUN Creatinine Ratio 80.2 (10-20); Calcium 8.2 mg/dl (8.5-10.1); Creatinine Clr Calc Pharmacy 137.1 ml/min; Est GFR (African American) 139.6; Est GFR (Non-African American) 120.4; Magnesium 1.9 mg/dl (1.8-2.4); Potassium 3.6 mmol/L (3.5-5.1)
--- NOTE | 2018-07-24 07:28 | Critical Care Progress Note ---
Date of Service July 24, 2018 Assessment & Plan (1) COPD (chronic obstructive pulmonary disease): Critically Ill: 62-year-old male with severe end-stage COPD and severe pulmonary Hypertension PLAN: Neuro: Analgesia -Weaning oxycodone Resp: Acute hypercarbic hypoxic respiratory failure Severe COPD -Status post tracheostomy postop day 3 -Difficulty transitioning to pressure support ventilation this is likely secondary to the new developing pneumonia in the left lower lobe, bronchoscopy yesterday, follow-up BAL and cultures and de-escalate antibiotics -Patient does continue to have apneic periods with decreasing opiates and addition of Provigil this will hopefully be resolved. Severe pulmonary hypertension: Resolved CV: Poor cardiac index: Resolved Biventricular heart failure -Reviewd Cardiology consult Fluids/Renal: Diuresis: - 40 mg Lasix daily - daily Spironolactone Hypokalemia - daily Neutra-Phos 1 tablet ID: 7-day course of cefuroxime finished New left lower lobe pneumonia -Cefepime vancomycin Diflucan GI/Nutrition: Tolerating tube feeds at goal -Tolerating course a Constipation -KUB: coresafe his gastric in the fundus -IV neostigmine yesterday with large bowel movement per positive response Pepcid for GI prophylaxis Discussed with patient need for PEG tube he is agreeable to placement of PEG tube -GI consult, plan for PEG Friday severe protein calorie malnutrition - severe weakness - checking baseline testosterone level - 100mg testosterone IM weekly - patient end stage COPD, with significant cachexia, androgens to hopefully improve function and quality of life in end-stage disease process. - aggressive nutritional support Heme: Anemia DVT prophylaxis: Lovenox Endocrine: ICU hyperglycemia protocol Aggressive PT OT mobilization Skin: Decubiti over the presacral area. Vascular access: PICC line Code Status: Full code Supervising Physician Co-Signing Physician Notes De-escalate ABX based on micro results - pending at this time adding liquid multi-vitamin severe protein calorie malnutrition - severe weakness - checking baseline testosterone level - 100mg testosterone IM weekly - patient end stage COPD, with significant cachexia, androgens to hopefully improve function and quality of life in end-stage disease process. - aggressive nutritional support Pressure support ventilation plan for PEG tube friday. Subjective 62-year-old male prisoner with end-stage COPD admitted for exacerbation/pneumonia, requiring tracheostomy with ventilator support, coordinating transfer to LTAC. Plan for PEG tube insertion on Friday. Will remain in ICU for ventilator management. Review of Systems Unable to obtain due to tracheostomy with ventilator support Physical Exam Vital Signs (Past 24 Hours): Last Vital Signs Temp 36.9 C 07/24/18 04:00 Pulse 101 H 07/24/18 06:00 Resp 21 07/24/18 06:00 BP 116/66 07/24/18 06:00 Pulse Ox 95 07/24/18 06:00 Constitutional: + frail appearing, comfortable and + mechanically ventilated Eyes: PERRL, conjunctivae normal, anicteric sclerae Neck: trachea midline Respiratory: Respirations unlabored on ventilator, lungs coarse to auscultation bilaterally and diminished in bases bilaterally. Symmetrical chest wall movement Cardiovascular: S1-S2 auscultated, good peripheral perfusion, radial and pedal pulses +2 bilaterally, no JVD, no edema Gastrointestinal (Abdomen): normal bowel sounds, soft, nontender, no hepatosplenomegaly Skin: no rashes, warm and dry Neurologic: PERRLA, follows commands, symmetrical and equal strength bilaterally Genitourinary: Almeida removed, monitor for adequate urine output Results & Data Laboratory Results Laboratory Results - last 24 hr 07/23/18 07/23/18 07/24/18 11:54 17:44 00:20 WBC RBC Hgb Hct MCV MCH MCHC RDW Std Deviation RDW Coeff of Leann Plt Count MPV Immature Gran % (Auto) Neut % (Auto) Lymph % (Auto) [place] % (Auto) Eos % (Auto) Baso % (Auto) Immature Gran # (Auto) Neut # (Auto) Lymph # (Auto) [place] # (Auto) Eos # (Auto) Baso # (Auto) Sodium Potassium Chloride Carbon Dioxide Anion Gap BUN Creatinine Est Cr Clr Drug Dosing Est GFR ( Amer) Est GFR (Non-Af Amer) BUN/Creatinine Ratio Glucose POC Glucose 99 158 H 141 H Calcium Phosphorus Magnesium Testosterone Level 07/24/18 07/24/18 07/24/18 04:04 05:40 07:56 WBC 25.91 H RBC 3.67 L Hgb 11.0 L Hct 33.4 L MCV 91.0 MCH 30.0 MCHC 32.9 RDW Std Deviation 49.9 H RDW Coeff of Leann 15.1 H Plt Count 163 MPV 9.3 Immature Gran % (Auto) 0.8 Neut % (Auto) 87.5 Lymph % (Auto) 6.9 [place] % (Auto) 4.7 Eos % (Auto) 0.1 Baso % (Auto) 0.0 Immature Gran # (Auto) 0.21 H Neut # (Auto) 22.67 H Lymph # (Auto) 1.79 Carver # (Auto) 1.21 H Eos # (Auto) 0.02 Baso # (Auto) 0.01 Sodium 137 Potassium 3.6 Chloride 99 Carbon Dioxide 36 H Anion Gap 2.0 L BUN 36 H Creatinine 0.45 L Est Cr Clr Drug Dosing 137.1 Est GFR ( Amer) 139.6 Est GFR (Non-Af Amer) 120.4 BUN/Creatinine Ratio 80.2 H Glucose 83 POC Glucose 95 Calcium 8.2 L Phosphorus 2.0 L Magnesium 1.9 Testosterone Level 07/24/18 08:00 WBC RBC Hgb Hct MCV MCH MCHC RDW Std Deviation RDW Coeff of Leann Plt Count MPV Immature Gran % (Auto) Neut % (Auto) Lymph % (Auto) [place] % (Auto) Eos % (Auto) Baso % (Auto) Immature Gran # (Auto) Neut # (Auto) Lymph # (Auto) [place] # (Auto) Eos # (Auto) Baso # (Auto) Sodium Potassium Chloride Carbon Dioxide Anion Gap BUN Creatinine Est Cr Clr Drug Dosing Est GFR ( Amer) Est GFR (Non-Af Amer) BUN/Creatinine Ratio Glucose POC Glucose Calcium Phosphorus Magnesium Testosterone Level 59.5 Medications Administered Home Medications fluticasone-salmeterol [Advair Diskus] 1 inh INHALATION BID 03/19/18 [History Confirmed 07/14/18] montelukast [Singulair] 10 mg PO QAM 03/19/18 [History Confirmed 07/14/18] spironolactone [Aldactone] 25 mg PO QAM 03/19/18 [History Confirmed 07/14/18] ipratropium-albuterol 3 ml INHALATION QID 7 Days #126 ml 03/26/18 [Rx Confirmed 07/14/18] guaifenesin 400 mg PO TID 07/14/18 [History Confirmed 07/14/18] levalbuterol tartrate [Xopenex HFA] 2 inh INHALATION TID PRN 07/14/18 [History Confirmed 07/14/18] prednisone 40 mg PO DAILY 07/14/18 [History Confirmed 07/14/18] tiotropium bromide [Spiriva with HandiHaler] 1 cap INHALATION DAILY 07/14/18 [History Confirmed 07/14/18] Active Medications Aspirin (Aspirin Chew) 81 mg NG DAILY [facility] Stop: 08/14/18 11:44 Last Admin: 07/24/18 09:20 Dose: 81 mg Documented by: Dextrose (Dextrose 50%) 25 - 50 ml IV UD PRN; Protocol PRN Reason: Hypoglycemia Protocol Stop: 08/13/18 10:58 Docusate Sodium (Colace) 100 mg PO BID [facility] Stop: 08/19/18 10:44 Last Admin: 07/24/18 09:20 Dose: 100 mg Documented by: Enoxaparin Sodium (Lovenox) 40 mg SQ Q24H [facility] Stop: 08/13/18 11:59 Last Admin: 07/23/18 11:50 Dose: 40 mg Documented by: Enteral Nutritional Formula (Impact 1.0 Galo) 1,000 ml OG UD [facility]; Protocol Stop: 08/16/18 09:14 Last Admin: 07/23/18 06:23 Dose: 1,000 ml Documented by: Famotidine (Pepcid) 20 mg PO BID [facility] Stop: 08/22/18 09:14 Last Admin: 07/24/18 09:19 Dose: 20 mg Documented by: Furosemide (Lasix) 40 mg PO DAILY [facility] Stop: 08/21/18 08:59 Last Admin: 07/24/18 09:20 Dose: 40 mg Documented by: Glucagon (Glucagen) 1 mg SQ UD PRN; Protocol PRN Reason: Hypoglycemia Protocol Stop: 08/13/18 10:58 Glucose (Glucose 40%) 15 - 30 gm PO UD PRN; Protocol PRN Reason: Hypoglycemia Protocol Stop: 08/13/18 10:58 Glucose (Dex4 Glucose) 4 - 8 tabs PO UD PRN; Protocol PRN Reason: Hypoglycemia Protocol Stop: 08/13/18 10:58 Heparin Sodium (Beef Lung) (Heparin Sod 10 Unit/Ml Flush) 5 ml FLUSH PRN PRN PRN Reason: Flush Stop: 08/22/18 11:58 Cefepime HCl 2,000 mg/ Syringe 12.5 mls @ 5 mls/min IV Q8H [facility] Stop: 07/30/18 08:59 Last Admin: 07/24/18 09:19 Dose: 5 mls/min Documented by: Fluconazole (Diflucan) 200 mg in 100 mls @ 100 mls/hr IV TODAY@1200,1300 [facility] Stop: 07/30/18 11:59 Last Infusion: 07/23/18 13:55 Dose: Infused Documented by: Norepinephrine Bitartrate 8 mg (/ Dextrose) 508 mls @ 0 mls/hr IV .Q0M [facility]; Protocol Stop: 08/22/18 12:54 Last Titration: 07/23/18 18:51 Dose: Infused Documented by: Vancomycin HCl 1,000 mg/ (Sodium Chloride) 270 mls @ 125 mls/hr IV Q12H [facility] Stop: 07/31/18 07:59 Last Admin: 07/24/18 09:19 Dose: 125 mls/hr Documented by: Insulin Aspart (Novolog Flexpen) 0 units SC Q6H [facility] Stop: 08/13/18 11:59 Last Admin: 07/24/18 06:00 Dose: Not Given Documented by: Ipratropium Leonore (Atrovent 0.02% 0.5mg/2.5ml) 0.5 mg NEB Q4R [facility] Stop: 08/13/18 11:59 Last Admin: 07/24/18 02:29 Dose: 0.5 mg Documented by: Lactulose (Chronulac) 30 gm PO Q8H PRN PRN Reason: Constipation Stop: 08/16/18 08:32 Last Admin: 07/20/18 21:35 Dose: 30 gm Documented by: Levalbuterol HCl (Xopenex 1.25mg/0.5ml Neb) 1.25 mg INH Q4R [facility] Stop: 08/16/18 15:59 Last Admin: 07/24/18 02:29 Dose: 1.25 mg Documented by: Metoprolol Tartrate (Lopressor) 25 mg PO BID [facility] Stop: 08/22/18 08:59 Last Admin: 07/24/18 09:19 Dose: 25 mg Documented by: Mineral Oil (Fleet Oil) 133 ml KS DAILY PRN PRN Reason: Constipation Stop: 08/19/18 10:41 Last Admin: 07/20/18 11:50 Dose: 133 ml Documented by: Miscellaneous (Carbohydrates For Hypoglycemia) 15 - 30 gm PO UD PRN PRN Reason: Hypoglycemia Treatment Stop: 08/13/18 10:58 Miscellaneous Information (Consult) 1 ea N/A UD PRN PRN Reason: Consult Stop: 08/22/18 08:41 Modafinil (Provigil) 100 mg PO DAILY [facility] Stop: 08/22/18 08:59 Last Admin: 07/23/18 09:27 Dose: 100 mg Documented by: Multivitamins/Minerals (Cerovite Liquid) 15 ml PO DAILY [facility] Stop: 08/21/18 08:59 Last Admin: 07/24/18 09:20 Dose: 15 ml Documented by: Oxycodone HCl (Roxicodone) 5 mg PO Q12H [facility]; Taper Stop: 07/25/18 08:59 Last Admin: 07/24/18 09:22 Dose: 5 mg Documented by: Potassium Phosphate (Phospha 250 Neutral 155-852-130 Mg) 1 tab PO DAILY [facility] Stop: 08/23/18 08:59 Last Admin: 07/24/18 09:20 Dose: 1 tab Documented by: Prednisone (Prednisone) 20 mg PO DAILY [facility]; Taper Stop: 08/02/18 08:59 Last Admin: 07/24/18 09:19 Dose: 20 mg Documented by: Sodium Biphosphate/Sodium Phosphate (Fleet Enema) 132 ml [place] DAILY PRN PRN Reason: Constipation Stop: 08/18/18 11:23 Last Admin: 07/19/18 12:46 Dose: 132 ml Documented by: Spironolactone (Aldactone) 25 mg PO DAILY [facility] Stop: 08/21/18 08:59 Last Admin: 07/24/18 09:20 Dose: 25 mg Documented by: Zinc Sulfate (Zinc Sulfate) 220 mg PO DAILY [facility] Stop: 08/21/18 09:14 Last Admin: 07/24/18 09:21 Dose: 220 mg Documented by: (1) COPD (chronic obstructive pulmonary disease) COPD type: unspecified COPD Qualified Code(s): J44.9 - Chronic obstructive pulmonary disease, unspecified
[2018-07-24 08:10] LABS: Hematocrit (blood only) 33.4 % (42-52); Mean Corpuscular Hgb Conc 32.9 g/dL (32-36); Mean Platelet Volume 9.3 fL (7.4-10.4); Platelet Count 163 K/uL (130-400); RDW Coefficient of Variation 15.1 % (11.5-14.5); RDW Standard Deviation 49.9 fL (36.4-46.3); Red Blood Count 3.67 M/uL (4.7-6.1); White Blood Count 25.91 K/uL (4.8-10.8)
[2018-07-24 08:33] LABS: Basophils # (auto) 0.01 K/uL (0-0.2); Eosinophils # (auto) 0.02 K/uL (0-0.5); Eosinophils % (auto) 0.1 %; Immature Granulocytes # (auto) 0.21 K/uL (0.00-0.02); Immature Granulocytes % (auto) 0.8 %; Lymphocytes # (auto) 1.79 K/uL (1.2-3.4); Lymphocytes % (auto) 6.9 %; Monocytes # (auto) 1.21 K/uL (0.11-0.59); Monocytes % (auto) 4.7 %; Neutrophils # (auto) 22.67 K/uL (1.4-6.5); Neutrophils % (auto) 87.5 %
[2018-07-24] MEDS: predniSONE 10 MG TABLET PO SCH (09:19)
[2018-07-24] MEDS: VANCOMYCIN HCL 1,000 MG in SODIUM CHLORIDE 0.9% 250 ML IV SCH ×2 (09:19→20:48)
[2018-07-24] MEDS: FAMOTIDINE 20 MG TAB PO SCH ×2 (09:19→20:52)
[2018-07-24] MEDS: METOPROLOL TARTRATE 25 MG TAB PO SCH ×2 (09:19→20:51)
[2018-07-24] MEDS: SPIRONOLACTONE 25 MG TAB PO SCH (09:20)
[2018-07-24] MEDS: ASPIRIN 81 MG CHEW NG SCH (09:20)
[2018-07-24] MEDS: POT PHOSPHATE MONOBASIC W/ SOD TAB PO SCH (09:20)
[2018-07-24] MEDS: MULTI VIT W/MINERALS LIQUID 15 ML UDP PO SCH (09:20)
[2018-07-24] MEDS: FUROSEMIDE 40 MG TAB PO SCH (09:20)
[2018-07-24] MEDS: DOCUSATE SODIUM SYRUP 100 MG/10 ML UDC PO SCH ×2 (09:20→20:51)
[2018-07-24] MEDS: ZINC SULFATE 220 MG CAPSULE PO SCH (09:21)
[2018-07-24] MEDS: MODAFINIL 100 MG TAB PO SCH (11:37)
[2018-07-24] MEDS: FLUCONAZOLE 200 MG/100 ML BAG IV SCH ×2 (11:39→12:49)
[2018-07-24] MEDS: ENOXAPARIN INJ 40 MG/0.4 ML SYR SQ SCH (11:39)
[2018-07-24] MEDS: IMPACT LIQD 1.0 CAL 1,000 ML BAG OG SCH (11:40)
[2018-07-24] MEDS: TESTOSTERONE CYPIONATE IM SCH (11:42)
[2018-07-24] MEDS ORDERED: MAGNESIUM CITRATE 296 ML/BTL PO STA (13:43)
[2018-07-24] MEDS ORDERED: MAGNESIUM CITRATE 296 ML/BTL PO PRN (14:42)
--- NOTE | 2018-07-24 16:36 | Hospitalist Progress Note ---
Date of Service July 24, 2018 Assessment & Plan (1) Acute respiratory failure with hypoxia: Presented with acute hypoxic respiratory failure due to combination of COPD exacerbation/severe ischemic cardiomyopathy biventricular heart failure with decompensated CHF Sent from correctional facility/correction at [facility] with acute respiratory failure/hypoxia was lethargic/intubated Patient was intubated in ER for airway protection Prior history of advanced COPD: Gold stage III, Patient required long-term mechanical ventilation Failed multiple weaning trial from ventilator Status post tracheostomy 07/21/2018 Status post bronchoscopy 07/14/2018 Showed thick secretions /bilateral mucous plugging, cleared with suction Treated empirically on cefuroxime Severe ischemic cardiomyopathy with EF 20%-noted in echo management noted below Status post tracheostomy Continued on mechanical ventilation on CPAP now with possible HCAP on Vancomycin, Cefepime, Fluconazole awaiting Bronch cultures (2) Pneumonia: management as per #1 (3) Acute systolic CHF (congestive heart failure), NYHA class 2: severe ischemic cardiomyopathy with EF of 20-25%, with global hypokinesis with biventricular heart failure continue Lasix and Spironolactone - (4) COPD (chronic obstructive pulmonary disease): Baseline advanced COPD, recent admission few months back at [facility] with COPD exacerbation Presented with hypoxia, respiratory failure, due to COPD exacerbation requiring mechanical ventilation, bronchoscopy continue Nebs, Prednisone daily (5) Non-ST elevated myocardial infarction (non-STEMI): per Dr. Banegas notes: Type II IN/non-ST elevated IN: N/A setting of demand ischemia, severe cardiomyopathy Presented with hypoxia, shortness of breath, leading to respiratory failure elevated troponins 0.092-1.210-1.150 Echo: 07/14/2018 1.Normal LV size with severely reduced systolic function: EF 20-25% global akinesis 2. Normal right ventricular size with severely reduced systolic function. The basal portion of the right ventricle free wall appears to be normally contracted, but otherwise right ventricle appears severely hypokinetic to akinetic 3. Small pericardial effusion, along the right ventricular free wall . No echocardiographic evidence of tamponade physiology. Unknown baseline type II non-ST elevated IN/demand ischemia in the setting of respiratory failure/ hypoxia Was on dobutamine gtt for severe cardiomyopathy/biventricular heart failure Weaned off Cardiac output improved Patient started with metoprolol tartrate (6) Discharge planning issues: DISPOSITION: Pt is a prisoner at [facility] Per [facility] patient will require transfer to [facility] as [facility] is not able to accommodate ventilator patients. appreciate input from School Age Teacher will D/w Family regarding feeding tube placement for superintendent terminal nutrition support prior to tx to [facility] ff up for acute respiratory failure seen resting in bed, comfortable mech vent on CPAP mode nods /shakes head to answer questions denies dyspnea, chest pain no pain denies other symptoms Physical Exam Vital Signs (Past 24 Hours): Last Vital Signs Temp 37 C 07/24/18 12:00 Pulse 98 H 07/24/18 14:59 Resp 21 07/24/18 14:59 BP 116/71 07/24/18 13:00 Pulse Ox 98 07/24/18 14:59 Physical Exam: General- oriented, not in distress, no accessory muscle use Eyes- anicteric Neck- no JVD Lungs- (+) rhonchi right >left Heart- normal rate, regular rhythm; no murmurs Abdomen- normal bowel sounds, nondistended, soft, nontender Extremities- no pretibial edema, no calf tenderness Neuro- alert, oriented; no gross focal neurologic deficits Skin- warm & dry Results & Data Laboratory Results Laboratory Results - last 24 hr 07/23/18 07/24/18 07/24/18 17:44 00:20 04:04 WBC RBC Hgb Hct MCV MCH MCHC RDW Std Deviation RDW Coeff of Leann Plt Count MPV Immature Gran % (Auto) Neut % (Auto) Lymph % (Auto) [place] % (Auto) Eos % (Auto) Baso % (Auto) Immature Gran # (Auto) Neut # (Auto) Lymph # (Auto) [place] # (Auto) Eos # (Auto) Baso # (Auto) Sodium 137 Potassium 3.6 Chloride 99 Carbon Dioxide 36 H Anion Gap 2.0 L BUN 36 H Creatinine 0.45 L Est Cr Clr Drug Dosing 137.1 Est GFR ( Amer) 139.6 Est GFR (Non-Af Amer) 120.4 BUN/Creatinine Ratio 80.2 H Glucose 83 POC Glucose 158 H 141 H Calcium 8.2 L Phosphorus 2.0 L Magnesium 1.9 Testosterone Level 07/24/18 07/24/18 07/24/18 05:40 07:56 08:00 WBC 25.91 H RBC 3.67 L Hgb 11.0 L Hct 33.4 L MCV 91.0 MCH 30.0 MCHC 32.9 RDW Std Deviation 49.9 H RDW Coeff of Leann 15.1 H Plt Count 163 MPV 9.3 Immature Gran % (Auto) 0.8 Neut % (Auto) 87.5 Lymph % (Auto) 6.9 [place] % (Auto) 4.7 Eos % (Auto) 0.1 Baso % (Auto) 0.0 Immature Gran # (Auto) 0.21 H Neut # (Auto) 22.67 H Lymph # (Auto) 1.79 [place] # (Auto) 1.21 H Eos # (Auto) 0.02 Baso # (Auto) 0.01 Sodium Potassium Chloride Carbon Dioxide Anion Gap BUN Creatinine Est Cr Clr Drug Dosing Est GFR ( Amer) Est GFR (Non-Af Amer) BUN/Creatinine Ratio Glucose POC Glucose 95 Calcium Phosphorus Magnesium Testosterone Level 59.5 07/24/18 11:52 WBC RBC Hgb Hct MCV MCH MCHC RDW Std Deviation RDW Coeff of Leann Plt Count MPV Immature Gran % (Auto) Neut % (Auto) Lymph % (Auto) [place] % (Auto) Eos % (Auto) Baso % (Auto) Immature Gran # (Auto) Neut # (Auto) Lymph # (Auto) [place] # (Auto) Eos # (Auto) Baso # (Auto) Sodium Potassium Chloride Carbon Dioxide Anion Gap BUN Creatinine Est Cr Clr Drug Dosing Est GFR ( Amer) Est GFR (Non-Af Amer) BUN/Creatinine Ratio Glucose POC Glucose 108 H Calcium Phosphorus Magnesium Testosterone Level (1) COPD (chronic obstructive pulmonary disease) COPD type: unspecified COPD Qualified Code(s): J44.9 - Chronic obstructive pulmonary disease, unspecified (2) Pneumonia Laterality: bilateral Lung location: lower lobe of lung Pneumonia type: due to unspecified organism Qualified Code(s): J18.1 - Lobar pneumonia, unspecified organism
[2018-07-25] MEDS: INSULIN ASPART 100 UNITS/ML 3 ML PEN SC SCH ×3 (00:21→12:09)
[2018-07-25] MEDS: CEFEPIME 2,000 MG in SYRINGE 0 ML IV SCH (01:16)
[2018-07-25] MEDS: IPRATROPIUM BROMIDE NEB SOLN 0.02% 2.5 ML VIAL NEB SCH ×6 (03:40→23:00)
[2018-07-25] MEDS: LEVALBUTEROL 1.25MG/0.5ML NEB INH SCH ×6 (03:40→23:00)
[2018-07-25] MEDS ORDERED: PIPERACILL/TAZOBAC CONSULT ACTIVE PRN (04:23)
[2018-07-25] MEDS ORDERED: MAGNESIUM SULFATE / D5W 1 GM/100 ML BAG IV ONE (04:23)
--- NOTE | 2018-07-25 04:28 | Hospitalist Progress Note ---
Date of Service July 25, 2018 Subjective Made aware by RN of persistent tachycardia , recurrent fever overnight. Chest x-ray 07/23 bilateral infiltrates left greater than the right, possible aspiration pneumonia AP Persistent sepsis HCAP possible aspiration Repeat blood cultures Change Cefepime to Zosyn; continue Vancomycin, Fluconazole Aspiration precautions Facilitate swallow eval Will relay to AM provider. Physical Exam Vital Signs (Past 24 Hours): Last Vital Signs Temp 37.8 C H 07/25/18 04:01 Pulse 126 H 07/25/18 04:01 Resp 22 07/25/18 02:00 BP 116/77 07/25/18 04:00 Pulse Ox 93 07/25/18 04:01
[2018-07-25] MEDS: ACETAMINOPHEN SOL 650 MG/20.3 ML UDC PO PRN (04:45)
[2018-07-25] MEDS: PIPERACILLIN/TAZOBACTAM 4.5 GM in DEXTROSE 5% 100 ML IV SCH ×2 (04:45→14:30)
[2018-07-25] MEDS: METOPROLOL TARTRATE 25 MG TAB PO SCH ×2 (04:46→21:35)
[2018-07-25] MEDS ORDERED: POTASSIUM CHLORIDE / WTR 10 MEQ/100 ML PLCT IV SCH (05:00)
[2018-07-25 05:15] LABS: Hematocrit (blood only) 34.3 % (42-52); Hemoglobin 11.1 g/dL (14.0-18.0); Mean Corpuscular Hgb Conc 32.4 g/dL (32-36); Mean Platelet Volume 9.7 fL (7.4-10.4); Platelet Count 180 K/uL (130-400); RDW Coefficient of Variation 15.1 % (11.5-14.5); RDW Standard Deviation 50.8 fL (36.4-46.3); Red Blood Count 3.73 M/uL (4.7-6.1); White Blood Count 32.53 K/uL (4.8-10.8)
[2018-07-25 05:18] LABS: Basophils # (auto) 0.01 K/uL (0-0.2); Eosinophils # (auto) 0.02 K/uL (0-0.5); Eosinophils % (auto) 0.1 %; Immature Granulocytes # (auto) 0.19 K/uL (0.00-0.02); Immature Granulocytes % (auto) 0.6 %; Lymphocytes # (auto) 1.28 K/uL (1.2-3.4); Lymphocytes % (auto) 3.9 %; Monocytes # (auto) 1.14 K/uL (0.11-0.59); Monocytes % (auto) 3.5 %; Neutrophils # (auto) 29.89 K/uL (1.4-6.5); Neutrophils % (auto) 91.9 %
[2018-07-25 05:28] LABS: BUN Creatinine Ratio 68.4 (10-20); Calcium 8.3 mg/dl (8.5-10.1); Est GFR (African American) 142.2; Est GFR (Non-African American) 122.7; Potassium 4.2 mmol/L (3.5-5.1)
[2018-07-25] MEDS: VANCOMYCIN HCL 1,000 MG in SODIUM CHLORIDE 0.9% 250 ML IV SCH ×2 (07:43→17:09)
[2018-07-25] MEDS: IMPACT LIQD 1.0 CAL 1,000 ML BAG OG SCH (07:44)
[2018-07-25] MEDS: predniSONE 10 MG TABLET PO SCH (07:49)
[2018-07-25] MEDS: FUROSEMIDE 40 MG TAB PO SCH (07:49)
[2018-07-25] MEDS: ZINC SULFATE 220 MG CAPSULE PO SCH (07:49)
[2018-07-25] MEDS: SPIRONOLACTONE 25 MG TAB PO SCH (07:50)
[2018-07-25] MEDS: ASPIRIN 81 MG CHEW NG SCH (07:50)
[2018-07-25] MEDS: DOCUSATE SODIUM SYRUP 100 MG/10 ML UDC PO SCH ×2 (07:50→21:35)
[2018-07-25] MEDS: POT PHOSPHATE MONOBASIC W/ SOD TAB PO SCH (07:50)
[2018-07-25] MEDS: MULTI VIT W/MINERALS LIQUID 15 ML UDP PO SCH (07:50)
[2018-07-25] MEDS: FAMOTIDINE 20 MG TAB PO SCH ×2 (07:50→21:36)
[2018-07-25] MEDS: MEGESTROL ACETATE 800 MG/20 ML UDP PO SCH (07:51)
[2018-07-25] MEDS: MODAFINIL 100 MG TAB PO SCH (07:56)
--- NOTE | 2018-07-25 09:04 | Pharmacy Report ---
Pharmacy Abx Dose Short Note - Date of Service July 25, 2018 - Assessment & Plan Assessment 62 year old M receiving Vancomycin for treatment of suspected HAP. Awaiting finalized bronch cultures. Will also order a repeat MRSA nasal swab (07/14 was negative). Day # 3 of antimicrobial therapy. Plan Vancomycin * Trough level of 11.4 mcg/mL is subtherapeutic. * Change to 1000 mg IV every 10 hours * Goal trough level : 15 to 20 mcg/mL * Trough or random level ordered for: 07/26/18 @1770 Pharmacy will continue to follow and will adjust dose/frequency as necessary. Thank you.
[2018-07-25] MEDS: ENOXAPARIN INJ 40 MG/0.4 ML SYR SQ SCH (11:40)
[2018-07-25] MEDS: FLUCONAZOLE 200 MG/100 ML BAG IV SCH ×2 (11:40→13:25)
--- NOTE | 2018-07-25 14:09 | Hospitalist Progress Note ---
Date of Service July 25, 2018 Assessment & Plan (1) Acute respiratory failure with hypoxia: per Dr Banegas notes: Presented with acute hypoxic respiratory failure due to combination of COPD exacerbation/severe ischemic cardiomyopathy biventricular heart failure with decompensated CHF [facility] from [facility]/assisted at [facility] with acute respiratory failure/hypoxia was lethargic/intubated Patient was intubated in ER for airway protection Prior history of advanced COPD: Gold stage III, Patient required long-term mechanical ventilation Status post bronchoscopy 07/14/2018 Showed thick secretions /bilateral mucous plugging, cleared with suction Treated empirically on cefuroxime Failed multiple weaning trial from ventilator Status post tracheostomy 07/21/2018 Continued on mechanical ventilation on CPAP Patient will be on chronic vent dependent-plan to tx pt to a facility with alf vent support /approved by [facility] referral made to [facility] Severe ischemic cardiomyopathy with EF 20%-noted in echo Cardiology consulted Appreciate input from cardiology Patient continued with scheduled diuresis, volume status stable pt will need PEG/Feeding tube placement for alf nutrition support GI eval requested -- stable on CPAP mode (2) Pneumonia: WBC increasing blood cultures pending urine culture pending Cefepime changed to Zosyn continued Vancomycin, Fluconazole monitor closely (3) Non-ST elevated myocardial infarction (non-STEMI): per Dr. Banegas notes: Type II ID/non-ST elevated ID: N/A setting of demand ischemia, severe cardiomyopathy Presented with hypoxia, shortness of breath, leading to respiratory failure elevated troponins 0.092-1.210-1.150 Echo: 07/14/2018 1.Normal LV size with severely reduced systolic function: EF 20-25% global akinesis 2. Normal right ventricular size with severely reduced systolic function. The basal portion of the right ventricle free wall appears to be normally contracted, but otherwise right ventricle appears severely hypokinetic to akinetic 3. Small pericardial effusion, along the right ventricular free wall . No echocardiographic evidence of tamponade physiology. Unknown baseline type II non-ST elevated ID/demand ischemia in the setting of respiratory failure/ hypoxia Was on dobutamine gtt for severe cardiomyopathy/biventricular heart failure Weaned off -- continue Metoprolol tartrate 25mg po BID (4) Acute systolic CHF (congestive heart failure), NYHA class 2: severe ischemic cardiomyopathy with EF of 20-25%, with global hypokinesis with biventricular heart failure -- appears euvolemic continue Lasix 40mg po daily, Spironolactone 25mg po daily (5) COPD (chronic obstructive pulmonary disease): Baseline advanced COPD, recent admission few months back at [facility] with COPD exacerbation Presented with hypoxia, respiratory failure, due to COPD exacerbation requiring mechanical ventilation, bronchoscopy continue Nebs, Prednisone daily (6) Discharge planning issues: DISPOSITION: Pt is a prisoner at [facility] Per [facility] patient will require transfer to [facility] as [facility] is not able to accommodate ventilator patients. 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 prior to tx to [facility] Subjective ff up for acute respiratory failure seen resting in bed, comfortable awake, alert nods/shakes his head to answer questions states he feels ok overall no dyspnea no chest pain, palpitations, dizziness, nausea no other symptoms Physical Exam Vital Signs (Past 24 Hours): Last Vital Signs Temp 37.1 C 07/25/18 12:00 Pulse 104 H 07/25/18 13:00 Resp 32 H 07/25/18 11:20 BP 113/71 07/25/18 13:00 Pulse Ox 97 07/25/18 13:00 Physical Exam: General- oriented x 3, not in distress, no accessory muscle use Eyes- anicteric Neck- no JVD Lungs-mild rhonchi on the right > left Heart- normal rate, regular rhythm; no murmurs Abdomen- normal bowel sounds, nondistended, soft, nontender Extremities- no pretibial edema, no calf tenderness Neuro- alert, oriented x 3; no gross focal neurologic deficits Skin- warm & dry Results & Data Laboratory Results Laboratory Results - last 24 hr 07/24/18 07/25/18 07/25/18 17:28 00:21 04:37 WBC 32.53 H* RBC 3.73 L Hgb 11.1 L Hct 34.3 L MCV 92.0 MCH 29.8 MCHC 32.4 RDW Std Deviation 50.8 H RDW Coeff of Leann 15.1 H Plt Count 180 MPV 9.7 Immature Gran % (Auto) 0.6 Neut % (Auto) 91.9 Lymph % (Auto) 3.9 Mower % (Auto) 3.5 Eos % (Auto) 0.1 Baso % (Auto) 0.0 Immature Gran # (Auto) 0.19 H Neut # (Auto) 29.89 H Lymph # (Auto) 1.28 Mower # (Auto) 1.14 H Eos # (Auto) 0.02 Baso # (Auto) 0.01 Sodium Potassium Chloride Carbon Dioxide Anion Gap BUN Creatinine Est Cr Clr Drug Dosing Est GFR ( Amer) Est GFR (Non-Af Amer) BUN/Creatinine Ratio Glucose POC Glucose 171 H 156 H Lactate Calcium Magnesium TSH Vancomycin Trough 07/25/18 07/25/18 07/25/18 04:37 04:37 06:05 WBC RBC Hgb Hct MCV MCH MCHC RDW Std Deviation RDW Coeff of Leann Plt Count MPV Immature Gran % (Auto) Neut % (Auto) Lymph % (Auto) Mower % (Auto) Eos % (Auto) Baso % (Auto) Immature Gran # (Auto) Neut # (Auto) Lymph # (Auto) Mower # (Auto) Eos # (Auto) Baso # (Auto) Sodium 135 L Potassium 4.2 D Chloride 95 L Carbon Dioxide 38 H Anion Gap 2.0 L BUN 29 H Creatinine 0.43 L Est Cr Clr Drug Dosing 145.0 Est GFR ( Amer) 142.2 Est GFR (Non-Af Amer) 122.7 BUN/Creatinine Ratio 68.4 H Glucose 146 H POC Glucose 195 H Lactate 0.9 Calcium 8.3 L Magnesium 2.0 TSH 1.940 Vancomycin Trough 07/25/18 07:19 WBC RBC Hgb Hct MCV MCH MCHC RDW Std Deviation RDW Coeff of Leann Plt Count MPV Immature Gran % (Auto) Neut % (Auto) Lymph % (Auto) Mower % (Auto) Eos % (Auto) Baso % (Auto) Immature Gran # (Auto) Neut # (Auto) Lymph # (Auto) Mower # (Auto) Eos # (Auto) Baso # (Auto) Sodium Potassium Chloride Carbon Dioxide Anion Gap BUN Creatinine Est Cr Clr Drug Dosing Est GFR ( Amer) Est GFR (Non-Af Amer) BUN/Creatinine Ratio Glucose POC Glucose Lactate Calcium Magnesium TSH Vancomycin Trough 11.4 (1) COPD (chronic obstructive pulmonary disease) COPD type: unspecified COPD Qualified Code(s): J44.9 - Chronic obstructive pulmonary disease, unspecified (2) Pneumonia Laterality: bilateral Lung location: lower lobe of lung Pneumonia type: due to unspecified organism Qualified Code(s): J18.1 - Lobar pneumonia, unspecified organism
--- NOTE | 2018-07-25 15:03 | XRay Report ---
XR abdomen min 2V CLINICAL HISTORY: constipation COMPARISON STUDY: 07/22/2018 FINDINGS: Feeding tube coiled in the stomach. Bowel pattern is considered nonobstructive. Moderate fe scarlett material within the a sending colon. No evidence for fecal impaction. Lung bases show infiltrativ e changes of the left and to a lesser extent right base. IMPRESSION: 1. Nonobstructive bowel pattern. 2. Moderate fecal material a sending colon. 3. Feeding tube coiled within the stomach. 4. Basilar parenchymal infiltrative change. The above report was generated using voice recognition software. It may contain grammatical, syntax or spelling errors. Electronically signed by: Joo Agosto M.D. 07/25/2018 3:01 PM
[2018-07-25] MEDS ORDERED: CONSULT PHARMACY STA (15:05)
--- NOTE | 2018-07-25 15:41 | Critical Care Progress Note ---
Date of Service July 25, 2018 Assessment & Plan (1) COPD (chronic obstructive pulmonary disease): PLAN: Neuro: Analgesia -Tylenol -Weaned from oxycodone Resp: Acute hypercarbic hypoxic respiratory failure Severe COPD -Status post tracheostomy postop day 4 -Moderate normal negro from BAL -Added Provigil for apneic periods -Discontinuing today -Pressure support ventilation pressure support 5 PEEP of 5 patient has been on this mode of ventilation for 24 hours we will continue in this mode. -Slowly decrease pressure support requirements moving towards trach trials Severe pulmonary hypertension: Resolved CV: Poor cardiac index: Resolved Biventricular heart failure -Reviewd Cardiology consult Fluids/Renal: Diuresis: - 40 mg Lasix daily - daily Spironolactone Hypokalemia - daily Neutra-Phos 1 tablet ID: 7-day course of cefuroxime finished Left lower lobe pneumonia -Overnight antibiotics were changed to Zosyn -Patient's ventilatory requirements have been decreasing, there is no new oxygen requirement, only changes increase in leukocytosis, patient on steroids -We will finish 7-day course of Diflucan, change antibiotics to Augmentin for total of 10-day effective therapy course to include days of cefepime, discontinue vancomycin pending repeat nasal swab being negative GI/Nutrition: Tolerating tube feeds at goal Constipation -KUB: coresafe in the fundus -IV neostigmine previously without bowel movement -Has been given mineral oil, Senokot, milk of magnesia, magnesium citrate, -5 mg IV stick mean to be administered over 1 hour Pepcid for GI prophylaxis Discussed with patient need for PEG tube he is agreeable to placement of PEG tube -GI consult, plan for PEG Friday severe protein calorie malnutrition - severe weakness - baseline testosterone level: 59.5 - 100mg testosterone IM weekly - Megace 800 mg daily - patient end stage COPD, with significant cachexia, androgens to hopefully improve function and quality of life in end-stage disease process. - aggressive nutritional support currently receiving 85 g protein which is approximately 1.5 mg/kg -increase to 2 mg/kg, 1 packet Prosource daily Heme: Anemia DVT prophylaxis: Lovenox Endocrine: ICU hyperglycemia protocol Aggressive PT OT mobilization Skin: Decubiti over the presacral area. Vascular access: PICC line Code Status: DNR in event of cardiac arrest Subjective Patient able to follow complex commands denies abdominal pain nausea or vomiti ng. Tolerating tube feeds. Physical Exam Vital Signs (Past 24 Hours): Last Vital Signs Temp 37.1 C 07/25/18 12:00 Pulse 104 H 07/25/18 13:00 Resp 32 H 07/25/18 11:20 BP 113/71 07/25/18 13:00 Pulse Ox 97 07/25/18 13:00 General: Alert. nontoxic. Skin: Warm, dry, Head: Atraumatic Ears, nose, mouth and throat: Tracheostomy in place, Surgicel placed under tracheostomy yesterday Cardiovascular: Normal peripheral perfusion, tachycardia Respiratory: no respiratory distress, distant sounds Gastrointestinal: Non distended Musculoskeletal: No deformity Results & Data Laboratory Results 07/25/18 07/25/18 07/25/18 Range/Units 11:30 07:19 06:05 WBC (4.8-10.8) K/uL RBC (4.7-6.1) M/uL Hgb (14.0-18.0) g/dL Hct (42-52) % MCV (80-100) fL MCH (25-34) pg MCHC (32-36) g/dL RDW Std Deviation (36.4-46.3) fL RDW Coeff of Leann (11.5-14.5) % Plt Count (130-400) K/uL MPV (7.4-10.4) fL Immature Gran % (Auto) % Neut % (Auto) % Lymph % (Auto) % [place] % (Auto) % Eos % (Auto) % Baso % (Auto) % Immature Gran # (Auto) (0.00-0.02) K/uL Neut # (Auto) (1.4-6.5) K/uL Lymph # (Auto) (1.2-3.4) K/uL [place] # (Auto) (0.11-0.59) K/uL Eos # (Auto) (0-0.5) K/uL Baso # (Auto) (0-0.2) K/uL Sodium (136-145) mmol/L Potassium (3.5-5.1) mmol/L Chloride (98-107) mmol/L Carbon Dioxide (21-32) mmol/L Anion Gap (3-11) BUN (7-18) mg/dl Creatinine (0.6-1.4) mg/dl Est Cr Clr Drug Dosing ml/min Est GFR ( Amer) Est GFR (Non-Af Amer) BUN/Creatinine Ratio (10-20) Glucose (70-99) mg/dl POC Glucose 195 H (70-99) Lactate (0.4-2.0) mmol/L Calcium (8.5-10.1) mg/dl Magnesium (1.8-2.4) mg/dl TSH (0.300-4.500) uIu/ml Nasal Screen MRSA (PCR) Pending Vancomycin Trough 11.4 (See Comment) mcg/ml 07/25/18 07/25/18 07/25/18 Range/Units 04:37 04:37 04:37 WBC 32.53 H* (4.8-10.8) K/uL RBC 3.73 L (4.7-6.1) M/uL Hgb 11.1 L (14.0-18.0) g/dL Hct 34.3 L (42-52) % MCV 92.0 (80-100) fL MCH 29.8 (25-34) pg MCHC 32.4 (32-36) g/dL RDW Std Deviation 50.8 H (36.4-46.3) fL RDW Coeff of Leann 15.1 H (11.5-14.5) % Plt Count 180 (130-400) K/uL MPV 9.7 (7.4-10.4) fL Immature Gran % (Auto) 0.6 % Neut % (Auto) 91.9 % Lymph % (Auto) 3.9 % [place] % (Auto) 3.5 % Eos % (Auto) 0.1 % Baso % (Auto) 0.0 % Immature Gran # (Auto) 0.19 H (0.00-0.02) K/uL Neut # (Auto) 29.89 H (1.4-6.5) K/uL Lymph # (Auto) 1.28 (1.2-3.4) K/uL [place] # (Auto) 1.14 H (0.11-0.59) K/uL Eos # (Auto) 0.02 (0-0.5) K/uL Baso # (Auto) 0.01 (0-0.2) K/uL Sodium 135 L (136-145) mmol/L Potassium 4.2 D (3.5-5.1) mmol/L Chloride 95 L (98-107) mmol/L Carbon Dioxide 38 H (21-32) mmol/L Anion Gap 2.0 L (3-11) BUN 29 H (7-18) mg/dl Creatinine 0.43 L (0.6-1.4) mg/dl Est Cr Clr Drug Dosing 145.0 ml/min Est GFR ( Amer) 142.2 Est GFR (Non-Af Amer) 122.7 BUN/Creatinine Ratio 68.4 H (10-20) Glucose 146 H (70-99) mg/dl POC Glucose (70-99) Lactate 0.9 (0.4-2.0) mmol/L Calcium 8.3 L (8.5-10.1) mg/dl Magnesium 2.0 (1.8-2.4) mg/dl TSH 1.940 (0.300-4.500) uIu/ml Nasal Screen MRSA (PCR) Vancomycin Trough (See Comment) mcg/ml 07/25/18 07/24/18 Range/Units 00:21 17:28 WBC (4.8-10.8) K/uL RBC (4.7-6.1) M/uL Hgb (14.0-18.0) g/dL Hct (42-52) % MCV (80-100) fL MCH (25-34) pg MCHC (32-36) g/dL RDW Std Deviation (36.4-46.3) fL RDW Coeff of Leann (11.5-14.5) % Plt Count (130-400) K/uL MPV (7.4-10.4) fL Immature Gran % (Auto) % Neut % (Auto) % Lymph % (Auto) % [place] % (Auto) % Eos % (Auto) % Baso % (Auto) % Immature Gran # (Auto) (0.00-0.02) K/uL Neut # (Auto) (1.4-6.5) K/uL Lymph # (Auto) (1.2-3.4) K/uL [place] # (Auto) (0.11-0.59) K/uL Eos # (Auto) (0-0.5) K/uL Baso # (Auto) (0-0.2) K/uL Sodium (136-145) mmol/L Potassium (3.5-5.1) mmol/L Chloride (98-107) mmol/L Carbon Dioxide (21-32) mmol/L Anion Gap (3-11) BUN (7-18) mg/dl Creatinine (0.6-1.4) mg/dl Est Cr Clr Drug Dosing ml/min Est GFR ( Amer) Est GFR (Non-Af Amer) BUN/Creatinine Ratio (10-20) Glucose (70-99) mg/dl POC Glucose 156 H 171 H (70-99) Lactate (0.4-2.0) mmol/L Calcium (8.5-10.1) mg/dl Magnesium (1.8-2.4) mg/dl TSH (0.300-4.500) uIu/ml Nasal Screen MRSA (PCR) Vancomycin Trough (See Comment) mcg/ml (1) COPD (chronic obstructive pulmonary disease) COPD type: unspecified COPD Qualified Code(s): J44.9 - Chronic obstructive pulmonary disease, unspecified
[2018-07-25] MEDS ORDERED: MINERAL OIL 30 ML UDC PO ONE (15:52)
[2018-07-25] MEDS ORDERED: SODIUM CHLORIDE 0.9% IV SCH (16:00)
[2018-07-25] MEDS ORDERED: NEOSTIGMINE METHYLSULFATE IV SCH (16:00)
[2018-07-25] MEDS ORDERED: AMOXICILLIN/CLAVULANATE 875 MG TAB PO SCH (17:00)
[2018-07-25] MEDS: AMOXICILLIN/CLAVULANATE SUSP 400MG/5ML 50ML BOTTLE NG SCH (17:09)
[2018-07-25] MEDS: INSULIN HUMAN REGULAR SC SCH (17:50)
[2018-07-25] MEDS ORDERED: LORazepam 0.25 MG/0.5 ML VIAL IV STA (18:43)
[2018-07-25] MEDS: PROSOURCE NO CARB 30 ML/PKT PO SCH (21:34)
--- NOTE | 2018-07-25 22:18 | XRay Report ---
XR KUB CLINICAL HISTORY: core safe placement tube position COMPARISON STUDY: No previous studies for comparison. FINDINGS: Feeding tube placed in the distal stomach. All remaining findings are unchanged compared to prior studies. IMPRESSION: Feeding tube placed distal stomach. The above report was generated using voice recognition software. It may contain grammatical, syntax or spelling errors. Electronically signed by: Joo Agosto M.D. 07/25/2018 10:16 PM
[2018-07-26] MEDS: INSULIN HUMAN REGULAR SC SCH ×4 (00:31→18:22)
[2018-07-26] MEDS: IPRATROPIUM BROMIDE NEB SOLN 0.02% 2.5 ML VIAL NEB SCH ×6 (03:17→23:00)
[2018-07-26] MEDS: LEVALBUTEROL 1.25MG/0.5ML NEB INH SCH ×6 (03:17→23:00)
[2018-07-26] MEDS: VANCOMYCIN HCL 1,000 MG in SODIUM CHLORIDE 0.9% 250 ML IV SCH (04:23)
[2018-07-26 04:41] LABS: Hemoglobin 10.6 g/dL (14.0-18.0); Mean Corpuscular Hgb Conc 33.1 g/dL (32-36); Mean Corpuscular Volume 92.8 fL (80-100); Mean Platelet Volume 9.6 fL (7.4-10.4); Platelet Count 201 K/uL (130-400); RDW Coefficient of Variation 15.3 % (11.5-14.5); RDW Standard Deviation 52.1 fL (36.4-46.3); Red Blood Count 3.45 M/uL (4.7-6.1); White Blood Count 28.49 K/uL (4.8-10.8)
[2018-07-26 05:03] LABS: Basophils # (auto) 0.01 K/uL (0-0.2); Dohle Bodies Occasional; Eosinophils # (auto) 0.03 K/uL (0-0.5); Eosinophils % (auto) 0.1 %; Immature Granulocytes # (auto) 0.14 K/uL (0.00-0.02); Immature Granulocytes % (auto) 0.5 %; Lymphocytes # (auto) 1.43 K/uL (1.2-3.4); Monocytes % (auto) 5.3 %; Neutrophils # (auto) 25.38 K/uL (1.4-6.5); Neutrophils % (auto) 89.1 %
--- NOTE | 2018-07-26 05:22 | Critical Care Progress Note ---
Date of Service July 26, 2018 Assessment & Plan (1) COPD (chronic obstructive pulmonary disease): PLAN: Neuro: Analgesia -Tylenol -Weaned from oxycodone Resp: Acute hypercarbic hypoxic respiratory failure Severe COPD -Status post tracheostomy postop day 5 -Moderate normal negro from BAL -Added Provigil for apneic periods -Discontinued Severe pulmonary hypertension: Resolved CV: Poor cardiac index: Resolved Biventricular heart failure -Metoprolol 25 mg twice daily -Increased 50 mg twice daily -Reviewed Cardiology consult Fluids/Renal: Diuresis: - 40 mg Lasix daily - daily Spironolactone Hypokalemia - daily Neutra-Phos 1 tablet ID: 7-day course of cefuroxime finished Left lower lobe pneumonia -Overnight antibiotics were changed to Zosyn -Patient's ventilatory requirements have been decreasing, there is no new oxygen requirement, only changes increase in leukocytosis, patient on steroids -We will finish 7-day course of Diflucan, change antibiotics to Augmentin for total of 10-day effective therapy course to include days of cefepime, discontinue vancomycin pending repeat nasal swab being negative GI/Nutrition: Tolerating tube feeds at goal Constipation -KUB: coresafe in the fundus -IV neostigmine previously without bowel movement -Has been given mineral oil, Senokot, milk of magnesia, magnesium citrate, - GoLYTELY q. hourly until bowel movement Pepcid for GI prophylaxis Discussed with patient need for PEG tube he is agreeable to placement of PEG tube -GI consult, plan for PEG Friday -N.p.o. after midnight severe protein calorie malnutrition - severe weakness - baseline testosterone level: 59.5 - 100mg testosterone IM weekly - Megace 800 mg daily - patient end stage COPD, with significant cachexia, androgens to hopefully improve function and quality of life in end-stage disease process. - aggressive nutritional support currently receiving 85 g protein which is approximately 1.5 mg/kg -increase to 2 mg/kg, 1 packet Prosource daily Heme: Anemia DVT prophylaxis: Lovenox Endocrine: ICU hyperglycemia protocol Aggressive PT OT mobilization Skin: Decubiti over the presacral area. Vascular access: PICC line Code Status: DNR in event of cardiac arrest Clinical update: 1700 patient started to have bowel movement after GoLYTELY prep Subjective Patient able to follow complex commands denies abdominal pain nausea or vomiting. Tolerating tube feeds. Switch from pressure support ventilation back to PRVC due to increased respiratory rate Physical Exam Vital Signs (Past 24 Hours): Last Vital Signs Temp 36.9 C 07/26/18 04:00 Pulse 113 H 07/26/18 05:00 Resp 21 07/26/18 01:55 BP 115/73 07/26/18 05:00 Pulse Ox 97 07/26/18 05:00 General: Alert. nontoxic. Skin: Warm, dry, Head: Atraumatic Ears, nose, mouth and throat: Tracheostomy in place, Surgicel placed under tracheostomy yesterday Cardiovascular: Normal peripheral perfusion, tachycardia Respiratory: no respiratory distress, distant sounds Gastrointestinal: Non distended Musculoskeletal: No deformity (1) COPD (chronic obstructive pulmonary disease) COPD type: unspecified COPD Qualified Code(s): J44.9 - Chronic obstructive pulmonary disease, unspecified
[2018-07-26] MEDS: IMPACT LIQD 1.0 CAL 1,000 ML BAG OG SCH (05:32)
[2018-07-26 06:06] LABS: BUN Creatinine Ratio 65.9 (10-20); Calcium 8.3 mg/dl (8.5-10.1); Creatinine Clr Calc Pharmacy 141.3 ml/min; Est GFR (African American) 142.2; Est GFR (Non-African American) 122.7; Potassium 3.8 mmol/L (3.5-5.1)
[2018-07-26 06:12] LABS: Phosphorus 1.8 mg/dl (2.5-4.9); Prealbumin 7.9 mg/dl (20-40)
[2018-07-26] MEDS: LAVAGE SOLUTION 4000ML PO SCH ×17 (06:53→23:49)
[2018-07-26] MEDS: MEGESTROL ACETATE 800 MG/20 ML UDP PO SCH (07:57)
[2018-07-26] MEDS: DOCUSATE SODIUM SYRUP 100 MG/10 ML UDC PO SCH ×2 (07:57→21:07)
[2018-07-26] MEDS: FUROSEMIDE 40 MG TAB PO SCH (07:57)
[2018-07-26] MEDS: METOPROLOL TARTRATE 50 MG TAB PO SCH ×2 (07:57→21:09)
[2018-07-26] MEDS: predniSONE 10 MG TABLET PO SCH (07:57)
[2018-07-26] MEDS: ASPIRIN 81 MG CHEW NG SCH (07:58)
[2018-07-26] MEDS: MULTI VIT W/MINERALS LIQUID 15 ML UDP PO SCH (07:58)
[2018-07-26] MEDS: POT PHOSPHATE MONOBASIC W/ SOD TAB PO SCH (07:58)
[2018-07-26] MEDS: ZINC SULFATE 220 MG CAPSULE PO SCH (07:58)
[2018-07-26] MEDS: FAMOTIDINE 20 MG TAB PO SCH ×2 (07:58→21:10)
[2018-07-26] MEDS: SPIRONOLACTONE 25 MG TAB PO SCH (07:59)
[2018-07-26] MEDS: AMOXICILLIN/CLAVULANATE SUSP 400MG/5ML 50ML BOTTLE NG SCH ×3 (08:00→17:28)
--- NOTE | 2018-07-26 09:56 | XRay Report ---
XR chest 1V portable HISTORY: 62 years-old Male resp fail acute respiratory failure COMPARISON: KUB 07/25/2018, chest radiograph 07/23/2018 TECHNIQUE: Portable AP view of the chest FINDINGS: Cardiac silhouette is unchanged. Right-sided PICC is noted, distal tip terminating in the expected lo cation of the inferior SVC. Tracheostomy cannula is unchanged. Enteric tube courses below the diaphra gm extending outside the [id number]. Hyperinflated lungs. No pneumothorax. Emphysema with chronic interstitial coarsening. Pulmonary vascular congestion with progressive bilateral mixed interstitial and alveolar opacities, most pronounced within the mid and lower lung zones and left lung base. Sugge stion of a trace left pleural effusion. Degenerative changes of the shoulders and spine. IMPRESSION: 1. Line and tube placement as above. 2. Severe emphysema with chronic fibrosis. 3. Progressive mixed interstitial and alveolar opacities of the bilateral middle and lower lung zones , left greater than right suggestive of worsening pneumonitis. 4. Mild pulmonary vascular congestion. The above report was generated using voice recognition software. It may contain grammatical, syntax o r spelling errors. Electronically signed by: Jason Marcus M.D. 07/26/2018 9:55 AM
[2018-07-26] MEDS: ENOXAPARIN INJ 40 MG/0.4 ML SYR SQ SCH (11:50)
[2018-07-26] MEDS: FLUCONAZOLE 200 MG/5 ML UDP PO SCH (11:50)
[2018-07-26] MEDS ORDERED: VANCOMYCIN TROUGH ONE (13:30)
--- NOTE | 2018-07-26 16:54 | Hospitalist Progress Note ---
Date of Service July 26, 2018 Assessment & Plan (1) Acute respiratory failure with hypoxia: per Dr Banegas notes: Presented with acute hypoxic respiratory failure due to combination of COPD exacerbation/severe ischemic cardiomyopathy biventricular heart failure with decompensated CHF Sent from correctional facility/residential at [facility] with acute respiratory failure/hypoxia was lethargic/intubated Patient was intubated in ER for airway protection Prior history of advanced COPD: Gold stage III, Patient required long-term mechanical ventilation Status post bronchoscopy 07/14/2018 Showed thick secretions /bilateral mucous plugging, cleared with suction Treated empirically on cefuroxime Failed multiple weaning trial from ventilator Status post tracheostomy 07/21/2018 Continued on mechanical ventilation on CPAP Patient will be on chronic vent dependent-plan to tx pt to a facility with prison vent support /approved by Long-Term referral made to [facility] Severe ischemic cardiomyopathy with EF 20%-noted in echo Cardiology consulted Appreciate input from cardiology Patient continued with scheduled diuresis, volume status stable pt will need PEG/Feeding tube placement for prison nutrition support GI eval requested --[facility] mode monitor Further management per intensive care team --Plan for PEG tube placement tomorrow (2) Pneumonia: Afebrile, leukocytosis trending down blood cultures negative so far urine culture negative so far Cefepime changed to Zosyn, Augmentin Vancomycin discontinued Continue fluconazole monitor closely (3) Non-ST elevated myocardial infarction (non-STEMI): per Dr. Banegas notes: Type II OK/non-ST elevated OK: N/A setting of demand ischemia, severe cardiomyopathy Presented with hypoxia, shortness of breath, leading to respiratory failure elevated troponins 0.092-1.210-1.150 Echo: 07/14/2018 1.Normal LV size with severely reduced systolic function: EF 20-25% global akinesis 2. Normal right ventricular size with severely reduced systolic function. The basal portion of the right ventricle free wall appears to be normally contracted, but otherwise right ventricle appears severely hypokinetic to akinetic 3. Small pericardial effusion, along the right ventricular free wall . No echocardiographic evidence of tamponade physiology. Unknown baseline type II non-ST elevated OK/demand ischemia in the setting of respiratory failure/ hypoxia Was on dobutamine gtt for severe cardiomyopathy/biventricular heart failure Weaned off -- continue Metoprolol tartrate 25mg po BID (4) Acute systolic CHF (congestive heart failure), NYHA class 2: severe ischemic cardiomyopathy with EF of 20-25%, with global hypokinesis with biventricular heart failure -- appears euvolemic continue Lasix 40mg po daily, Spironolactone 25mg po daily (5) COPD (chronic obstructive pulmonary disease): Baseline advanced COPD, recent admission few months back at [facility] with COPD exacerbation Presented with hypoxia, respiratory failure, due to COPD exacerbation requiring mechanical ventilation, bronchoscopy continue Nebs, Prednisone daily (6) Discharge planning issues: DISPOSITION: Pt is a prisoner at [facility] Per [facility] patient will require transfer to [facility] as [facility] is not able to accommodate ventilator patients. appreciate input from Sales Utility Representative will need feeding tube placement for prison nutrition support prior to tx to [facility] (7) Constipation: GoLYTELY reslistor may be considered as well Subjective Follow-up for acute respiratory failure Seen sitting up in bed, nondistressed, alert Denies shortness of breath, chest pain Positive constipation, GoLYTELY in progress Denies other symptoms Physical Exam Vital Signs (Past 24 Hours): Last Vital Signs Temp 37.0 C 07/26/18 16:00 Pulse 103 H 07/26/18 16:00 Resp 22 07/26/18 16:16 BP 116/67 07/26/18 16:00 Pulse Ox 95 07/26/18 16:00 Physical Exam: General- oriented x 3, not in distress, no accessory muscle use Eyes- anicteric Neck- no JVD Lungs-positive rhonchi bilateral bases, no wheezing Heart- normal rate, regular rhythm; no murmurs Abdomen- normal bowel sounds, nondistended, soft, nontender Extremities- no pretibial edema, no calf tenderness Neuro- alert, oriented x 3; no gross focal neurologic deficits Skin- warm & dry Results & Data Laboratory Results Laboratory Results - last 24 hr 07/25/18 07/25/18 07/26/18 11:30 17:11 00:26 WBC RBC Hgb Hct MCV MCH MCHC RDW Std Deviation RDW Coeff of Leann Plt Count MPV Immature Gran % (Auto) Neut % (Auto) Lymph % (Auto) [place] % (Auto) Eos % (Auto) Baso % (Auto) Immature Gran # (Auto) Neut # (Auto) Lymph # (Auto) [place] # (Auto) Eos # (Auto) Baso # (Auto) Dohle Bodies Sodium Potassium Chloride Carbon Dioxide Anion Gap BUN Creatinine Est Cr Clr Drug Dosing Est GFR ( Amer) Est GFR (Non-Af Amer) BUN/Creatinine Ratio Glucose POC Glucose 147 H 118 H Calcium Phosphorus Magnesium Prealbumin Nasal Screen MRSA (PCR) Uninterpretable 07/26/18 07/26/18 07/26/18 04:24 04:24 06:11 WBC 28.49 H RBC 3.45 L Hgb 10.6 L Hct 32.0 L MCV 92.8 MCH 30.7 MCHC 33.1 RDW Std Deviation 52.1 H RDW Coeff of Leann 15.3 H Plt Count 201 MPV 9.6 Immature Gran % (Auto) 0.5 Neut % (Auto) 89.1 Lymph % (Auto) 5.0 [place] % (Auto) 5.3 Eos % (Auto) 0.1 Baso % (Auto) 0.0 Immature Gran # (Auto) 0.14 H Neut # (Auto) 25.38 H Lymph # (Auto) 1.43 [place] # (Auto) 1.50 H Eos # (Auto) 0.03 Baso # (Auto) 0.01 Dohle Bodies Occasional Sodium 135 L Potassium 3.8 Chloride 94 L Carbon Dioxide 37 H Anion Gap 4.0 BUN 28 H Creatinine 0.43 L Est Cr Clr Drug Dosing 141.3 Est GFR ( Amer) 142.2 Est GFR (Non-Af Amer) 122.7 BUN/Creatinine Ratio 65.9 H Glucose 108 H POC Glucose 105 H Calcium 8.3 L Phosphorus 1.8 L Magnesium 2.0 Prealbumin 7.9 L Nasal Screen MRSA (PCR) 07/26/18 12:22 WBC RBC Hgb Hct MCV MCH MCHC RDW Std Deviation RDW Coeff of Leann Plt Count MPV Immature Gran % (Auto) Neut % (Auto) Lymph % (Auto) [place] % (Auto) Eos % (Auto) Baso % (Auto) Immature Gran # (Auto) Neut # (Auto) Lymph # (Auto) [place] # (Auto) Eos # (Auto) Baso # (Auto) Dohle Bodies Sodium Potassium Chloride Carbon Dioxide Anion Gap BUN Creatinine Est Cr Clr Drug Dosing Est GFR ( Amer) Est GFR (Non-Af Amer) BUN/Creatinine Ratio Glucose POC Glucose 102 H Calcium Phosphorus Magnesium Prealbumin Nasal Screen MRSA (PCR) (1) Pneumonia Laterality: bilateral Lung location: lower lobe of lung Pneumonia type: due to unspecified organism Qualified Code(s): J18.1 - Lobar pneumonia, unspecified organism (2) COPD (chronic obstructive pulmonary disease) COPD type: unspecified COPD Qualified Code(s): J44.9 - Chronic obstructive pulmonary disease, unspecified
[2018-07-26] MEDS: PROSOURCE NO CARB 30 ML/PKT PO SCH (21:11)
[2018-07-27] MEDS: METOPROLOL TARTRATE 1 MG/ML VIAL IV PRN ×4 (01:07→16:29)
[2018-07-27] MEDS: INSULIN HUMAN REGULAR SC SCH ×5 (01:09→23:55)
[2018-07-27] MEDS: LEVALBUTEROL 1.25MG/0.5ML NEB INH SCH ×6 (03:21→23:16)
[2018-07-27] MEDS: IPRATROPIUM BROMIDE NEB SOLN 0.02% 2.5 ML VIAL NEB SCH ×6 (03:21→23:16)
[2018-07-27 05:52] LABS: Basophils # (auto) 0.01 K/uL (0-0.2); Eosinophils # (auto) 0.04 K/uL (0-0.5); Eosinophils % (auto) 0.2 %; Hematocrit (blood only) 29.4 % (42-52); Hemoglobin 9.7 g/dL (14.0-18.0); Immature Granulocytes % (auto) 0.5 %; Lymphocytes # (auto) 1.47 K/uL (1.2-3.4); Mean Corpuscular Volume 90.7 fL (80-100); Mean Platelet Volume 9.5 fL (7.4-10.4); Monocytes # (auto) 0.82 K/uL (0.11-0.59); Monocytes % (auto) 3.9 %; Neutrophils # (auto) 18.64 K/uL (1.4-6.5); Neutrophils % (auto) 88.4 %; Platelet Count 188 K/uL (130-400); RDW Standard Deviation 50.3 fL (36.4-46.3); Red Blood Count 3.24 M/uL (4.7-6.1); White Blood Count 21.08 K/uL (4.8-10.8)
[2018-07-27 06:32] LABS: Alanine Aminotransferase 35 U/L (12-78); Albumin Level 1.6 gm/dl (3.4-5.0); Alkaline Phosphatase 57 U/L (45-117); Aspartate Aminotransferase 19 U/L (15-37); BUN Creatinine Ratio 66.2 (10-20); Bilirubin Direct 0.4 mg/dl (0-0.2); Blood Urea Nitrogen 19 mg/dl (7-18); Calcium 8.1 mg/dl (8.5-10.1); Carbon Dioxide 38 mmol/L (21-32); Chloride 90 mmol/L (98-107); Creatinine Clr Calc Pharmacy 222.4 ml/min; Est GFR (African American) > 150.0; Est GFR (Non-African American) 144.3; Glucose 81 mg/dl (70-99); Magnesium 1.8 mg/dl (1.8-2.4); Phosphorus 2.4 mg/dl (2.5-4.9); Potassium 3.2 mmol/L (3.5-5.1); Sodium 133 mmol/L (136-145); Total Protein 5.7 gm/dl (6.4-8.2)
--- NOTE | 2018-07-27 07:07 | XRay Report ---
XR chest 1V portable CLINICAL HISTORY: intubation tube position COMPARISON STUDY: 07/26/2018 FINDINGS: Tracheostomy tube remains in good position. Feeding tube now appears to be in the mid esoph ageal region. Interstitial and parenchymal changes in the mid to lower lung regions bilaterally are s table. Mild emphysematous changes right pulmonary apex stable central catheter in superior vena cava. IMPRESSION: Feeding tube positioned overlying the mid esophagus. This should be repositioned. Unchan ging basilar parenchymal infiltrative change. The above report was generated using voice recognition software. It may contain grammatical, syntax or spelling errors. Electronically signed by: Joo Agosto M.D. 07/27/2018 7:06 AM
[2018-07-27] MEDS: LAVAGE SOLUTION 4000ML PO SCH ×2 (07:14→07:15)
[2018-07-27] MEDS: DOCUSATE SODIUM SYRUP 100 MG/10 ML UDC PO SCH ×2 (07:16→20:15)
--- NOTE | 2018-07-27 07:18 | XRay Report ---
KUB CLINICAL HISTORY: Constipation. FINDINGS: An AP, portable, supine abdominal radiograph is compared to study dated 07/25/2018. There is a nonobstructed abdominal bowel gas pattern. The enteric tube has been removed. There is moderate fec al retention in the rectosigmoid colon. No evidence of intraperitoneal free air is seen on this supin e image. Advanced emphysematous change is noted at the lung bases. Bibasilar airspace opacities are n oted, greatest in the left lung base. Calcified gallstones are questioned in right upper quadrant. Th e skeletal structures are osteopenic. The visualized bony pelvis appears intact. IMPRESSION: 1. Nonobstructed abdominal bowel gas pattern. 2. Suspect cholelithiasis. 3. Advanced emphysematous change and bibasilar opacities are seen at the lung bases. Electronically signed by: Dwayne Mays M.D. 07/27/2018 7:16 AM
--- NOTE | 2018-07-27 07:30 | Critical Care Progress Note ---
Date of Service July 27, 2018 Assessment & Plan (1) COPD (chronic obstructive pulmonary disease): PLAN: Neuro: Analgesia -Tylenol -Weaned from oxycodone Resp: Acute hypercarbic hypoxic respiratory failure Severe COPD -Status post tracheostomy postop day 5 -Moderate normal negro from BAL -Added Provigil for apneic periods -Discontinued Severe pulmonary hypertension: Resolved CV: Poor cardiac index: Resolved Biventricular heart failure -Metoprolol 25 mg twice daily -Increased 50 mg twice daily -Reviewed Cardiology consult Fluids/Renal: Diuresis: - 40 mg Lasix daily - daily Spironolactone Hypokalemia - daily Neutra-Phos 1 tablet ID: 7-day course of cefuroxime finished Left lower lobe pneumonia -Zosyn -Patient's ventilatory requirements have been decreasing, there is no new oxygen requirement, only changes increase in leukocytosis, patient on steroids -We will finish 7-day course of Diflucan, change antibiotics to Augmentin for total of 10-day effective therapy course to include days of cefepime, discontinue vancomycin pending repeat nasal swab being negative GI/Nutrition: Tolerating tube feeds at goal Constipation -Resolved with last BM 07/27/18 Pepcid for GI prophylaxis Discussed with patient need for PEG tube he is agreeable to placement of PEG tube -GI consult, plan for PEG today at bedside -N.p.o. for procedure severe protein calorie malnutrition - severe weakness - baseline testosterone level: 59.5 - 100mg testosterone IM weekly - Megace 800 mg daily - patient end stage COPD, with significant cachexia, androgens to hopefully improve function and quality of life in end-stage disease process. - aggressive nutritional support currently receiving 85 g protein which is approximately 1.5 mg/kg -increase to 2 mg/kg, 1 packet Prosource daily Heme: Anemia DVT prophylaxis: Lovenox Endocrine: ICU hyperglycemia protocol Aggressive PT OT mobilization Skin: Decubiti over the presacral area. Vascular access: PICC line Code Status: DNR in event of cardiac arrest Subjective 62-year-old male with end-stage COPD exacerbation with pneumonia requiring long- term ventilation via tracheostomy with plan to transfer to LTAC after receiving PEG tube today. Review of Systems All systems reviewed & are unremarkable except as noted in HPI & below Subjective review of systems limited secondary to tracheostoma and ventilator assistance Physical Exam Vital Signs (Past 24 Hours): Last Vital Signs Temp 36.4 C L 07/27/18 04:00 Pulse 104 H 07/27/18 06:01 Resp 17 07/27/18 05:50 BP 105/67 07/27/18 06:00 Pulse Ox 98 07/27/18 06:01 Constitutional: WD/WN, vitals as above comfortable Eyes: PERRL, conjunctivae normal, anicteric sclerae Respiratory: normal respiratory effort, lungs clear to auscultation Cardiovascular: RRR, no murmur, no edema Heart Sounds: normal S1 and normal S2 Gastrointestinal (Abdomen): normal bowel sounds, soft, nontender, no hepatosplenomegaly Skin: no rashes, warm and dry Sacral decubitus Neurologic: PERRL, EOMI, accommodation nl, no face palsy, no dysarthria Results & Data Laboratory Results Laboratory Results - last 24 hr 07/26/18 07/26/18 07/27/18 18:19 23:48 05:26 WBC 21.08 H RBC 3.24 L Hgb 9.7 L Hct 29.4 L MCV 90.7 MCH 29.9 MCHC 33.0 RDW Std Deviation 50.3 H RDW Coeff of Leann 15.0 H Plt Count 188 MPV 9.5 Immature Gran % (Auto) 0.5 Neut % (Auto) 88.4 Lymph % (Auto) 7.0 [place] % (Auto) 3.9 Eos % (Auto) 0.2 Baso % (Auto) 0.0 Immature Gran # (Auto) 0.10 H Neut # (Auto) 18.64 H Lymph # (Auto) 1.47 [place] # (Auto) 0.82 H Eos # (Auto) 0.04 Baso # (Auto) 0.01 Sodium Potassium Chloride Carbon Dioxide Anion Gap BUN Creatinine Est Cr Clr Drug Dosing Est GFR ( Amer) Est GFR (Non-Af Amer) BUN/Creatinine Ratio Glucose POC Glucose 125 H 100 H Calcium Phosphorus Magnesium Total Bilirubin Direct Bilirubin AST ALT Alkaline Phosphatase Total Protein Albumin 07/27/18 07/27/18 07/27/18 05:26 05:33 11:21 WBC RBC Hgb Hct MCV MCH MCHC RDW Std Deviation RDW Coeff of Leann Plt Count MPV Immature Gran % (Auto) Neut % (Auto) Lymph % (Auto) [place] % (Auto) Eos % (Auto) Baso % (Auto) Immature Gran # (Auto) Neut # (Auto) Lymph # (Auto) [place] # (Auto) Eos # (Auto) Baso # (Auto) Sodium 133 L Potassium 3.2 L D Chloride 90 L Carbon Dioxide 38 H Anion Gap 5.0 BUN 19 H Creatinine 0.29 L Est Cr Clr Drug Dosing 222.4 Est GFR ( Amer) > 150.0 Est GFR (Non-Af Amer) 144.3 BUN/Creatinine Ratio 66.2 H Glucose 81 POC Glucose 84 83 Calcium 8.1 L Phosphorus 2.4 L Magnesium 1.8 Total Bilirubin 1.0 Direct Bilirubin 0.4 H AST 19 ALT 35 Alkaline Phosphatase 57 Total Protein 5.7 L Albumin 1.6 L Medications Administered Home Medications fluticasone-salmeterol [Advair Diskus] 1 inh INHALATION BID 03/19/18 [History Confirmed 07/14/18] montelukast [Singulair] 10 mg PO QAM 03/19/18 [History Confirmed 07/14/18] spironolactone [Aldactone] 25 mg PO QAM 03/19/18 [History Confirmed 07/14/18] ipratropium-albuterol 3 ml INHALATION QID 7 Days #126 ml 03/26/18 [Rx Confirmed 07/14/18] guaifenesin 400 mg PO TID 07/14/18 [History Confirmed 07/14/18] levalbuterol tartrate [Xopenex HFA] 2 inh INHALATION TID PRN 07/14/18 [History Confirmed 07/14/18] prednisone 40 mg PO DAILY 07/14/18 [History Confirmed 07/14/18] tiotropium bromide [Spiriva with HandiHaler] 1 cap INHALATION DAILY 07/14/18 [History Confirmed 07/14/18] Active Medications Acetaminophen (Tylenol) 650 mg PO Q6H PRN PRN Reason: Fever Stop: 08/24/18 04:15 Last Admin: 07/25/18 04:45 Dose: 650 mg Documented by: Amoxicillin/Clavulanate Potassium (Augmentin Susp) 500 mg NG TIDM SIENNA Stop: 08/01/18 16:59 Last Admin: 07/27/18 15:34 Dose: 500 mg Documented by: Aspirin (Aspirin Chew) 81 mg NG DAILY SIENNA Stop: 08/14/18 11:44 Last Admin: 07/27/18 15:28 Dose: 81 mg Documented by: Dextrose (Dextrose 50%) 25 - 50 ml IV UD PRN; Protocol PRN Reason: Hypoglycemia Protocol Stop: 08/13/18 10:58 Docusate Sodium (Colace) 100 mg PO BID [facility] Stop: 08/19/18 10:44 Last Admin: 07/27/18 07:16 Dose: Not Given Documented by: Enoxaparin Sodium (Lovenox) 40 mg SQ Q24H [facility] Stop: 08/13/18 11:59 Last Admin: 07/27/18 15:31 Dose: 40 mg Documented by: Enteral Nutritional Formula (Impact 1.0 Galo) 1,000 ml OG UD [facility]; Protocol Stop: 08/16/18 09:14 Last Admin: 07/26/18 05:32 Dose: 1,000 ml Documented by: Famotidine (Pepcid) 20 mg PO BID [facility] Stop: 08/22/18 09:14 Last Admin: 07/27/18 15:28 Dose: 20 mg Documented by: Fluconazole (Diflucan) 200 mg PO QAM [facility] Stop: 07/29/18 11:01 Last Admin: 07/27/18 15:34 Dose: Not Given Documented by: Furosemide (Lasix) 40 mg PO DAILY [facility] Stop: 08/21/18 08:59 Last Admin: 07/27/18 15:29 Dose: 40 mg Documented by: Glucagon (Glucagen) 1 mg SQ UD PRN; Protocol PRN Reason: Hypoglycemia Protocol Stop: 08/13/18 10:58 Glucose (Glucose 40%) 15 - 30 gm PO UD PRN; Protocol PRN Reason: Hypoglycemia Protocol Stop: 08/13/18 10:58 Glucose (Dex4 Glucose) 4 - 8 tabs PO UD PRN; Protocol PRN Reason: Hypoglycemia Protocol Stop: 08/13/18 10:58 Heparin Sodium (Beef Lung) (Heparin Sod 10 Unit/Ml Flush) 5 ml FLUSH PRN PRN PRN Reason: Flush Stop: 08/22/18 11:58 Testosterone Cypionate 100 mg/ (Syringe) 0.5 mls @ 0 mls/hr IM Fr@1200 [facility] Stop: 08/23/18 11:59 Last Admin: 07/24/18 11:42 Dose: 1 mls/hr Documented by: Propofol (Diprivan) 1,000 mg in 100 mls @ 1.809 mls/hr IV .Q24H [facility]; Protocol Stop: 07/28/18 14:01 Last Admin: 07/27/18 15:50 Dose: Not Given Documented by: Potassium Phosphate 15 mmol/ (Sodium Chloride) 255 mls @ 88 mls/hr IV ONE ONE Stop: 07/27/18 19:08 Last Admin: 07/27/18 16:30 Dose: 88 mls/hr Documented by: Magnesium Sulfate/Dextrose (Magnesium Sulfate / D5w) 1 gm in 100 mls @ 100 mls/hr IV TODAY@1615,1715 [facility] Stop: 07/27/18 23:59 Insulin Human Regular (Novolin R) 0 units SC Q6H [facility]; Protocol Stop: 08/24/18 17:59 Last Admin: 07/27/18 11:26 Dose: Not Given Documented by: Ipratropium [place] (Atrovent 0.02% 0.5mg/2.5ml) 0.5 mg NEB Q4R [facility] Stop: 08/13/18 11:59 Last Admin: 07/27/18 11:10 Dose: 0.5 mg Documented by: Levalbuterol HCl (Xopenex 1.25mg/0.5ml Neb) 1.25 mg INH Q4R [facility] Stop: 08/16/18 15:59 Last Admin: 07/27/18 11:10 Dose: 1.25 mg Documented by: Magnesium Citrate (Citrate) 148 - 296 ml PO DAILY PRN PRN Reason: Constipation Stop: 08/23/18 14:41 Megestrol Acetate (Megace) 800 mg PO DAILY [facility] Stop: 08/24/18 08:59 Last Admin: 07/27/18 15:30 Dose: 800 mg Documented by: Metoprolol Tartrate (Lopressor) 50 mg PO BID [facility] Stop: 08/25/18 08:59 Last Admin: 07/27/18 15:30 Dose: Not Given Documented by: Metoprolol Tartrate (Lopressor) 2.5 mg IV Q2H PRN PRN Reason: Tachycardia Stop: 08/25/18 21:59 Last Admin: 07/27/18 16:29 Dose: 2.5 mg Documented by: Miscellaneous (Carbohydrates For Hypoglycemia) 15 - 30 gm PO UD PRN PRN Reason: Hypoglycemia Treatment Stop: 08/13/18 10:58 Multivitamins/Minerals (Cerovite Liquid) 15 ml PO DAILY [facility] Stop: 08/21/18 08:59 Last Admin: 07/27/18 15:28 Dose: 15 ml Documented by: Nutritional Formula (Prosource No Carb) 30 ml PO HS [facility] Stop: 08/24/18 20:59 Last Admin: 07/26/18 21:11 Dose: 30 ml Documented by: Potassium Phosphate (Phospha 250 Neutral 155-852-130 Mg) 1 tab PO DAILY [facility] Stop: 08/23/18 08:59 Last Admin: 07/27/18 15:29 Dose: 1 tab Documented by: Prednisone (Prednisone) 10 mg PO DAILY [facility]; Taper Stop: 08/02/18 08:59 Last Admin: 07/27/18 15:29 Dose: 10 mg Documented by: Spironolactone (Aldactone) 25 mg PO DAILY [facility] Stop: 08/21/18 08:59 Last Admin: 07/27/18 15:29 Dose: 25 mg Documented by: Zinc Sulfate (Zinc Sulfate) 220 mg PO DAILY [facility] Stop: 08/21/18 09:14 Last Admin: 07/27/18 15:30 Dose: 220 mg Documented by: (1) COPD (chronic obstructive pulmonary disease) COPD type: unspecified COPD Qualified Code(s): J44.9 - Chronic obstructive pulmonary disease, unspecified
--- NOTE | 2018-07-27 11:34 | Gastrointestinal Consultation ---
Date of Consultation July 27, 2018 Assessment & Plan (1) Cirrhosis: Mr. Shirley is a 62 yr old male here with respiratory failure. 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 Will order stat liver imaging to check for cirrhosis and if present to r/o ascites. If no ascites, then will go forward with PEG tube insertion this afternoon. He is on augmentin - which will cover skin pathogens. The procedure was described in detail with the pt including risks of infection, bleeding, aspiration and that once placed, if he decides that he does not want the PEG, then, it can not removed until the tract is mature - about 2 months. Present on Admission?: Yes (2) Hepatitis B: (3) Dysphagia: (4) Protein calorie malnutrition: Supervising Physician Co-Signing Physician Notes I have performed a history and physical examination of this patient and reviewed the electronic medical record. Specifically, on physical examination abdomen is soft non distended and non tender. Review of ultrasound shows trace ascites above the liver, but no asites in the area of the stomach. I have discussed the case with PRANAV Nathan. The above note reflects my findings, concl usions, and recommendations. Danilo Staley MD History of Present Illness Reason for Consultation: PEG tube consult Requesting Physician: Dr. Nino Attending Physician: Tomas Rivera MD History of Present Illness Mr. Rodolfo Shirley is a 62 yr old male with a hx of CHF EF 25%, GERD, advanced COPD, HTN, Hep B, cirrhosis who is ventilated for respiratory failure, fungal pneumonia, unable to be weaned from ventilator. PEG tube has been requested for ongoing nutritional needs prior to transfer to LT[facility]. Pt unaware of Dx of cirrhosis listed on his PMH. He does not have the appearance of decompensated cirrhosis as there is no obvious ascites and he has normal platelet counts. Allergies Allergy/AdvReac Type Severity Reaction Status Date / Time No Known Allergies Allergy Unverified 07/14/18 08:44 Home Medications Home Medications Medication Instructions Recorded Confirmed Type fluticasone-salmeterol [Advair 1 inh INHALATION BID 03/19/18 07/14/18 History Diskus] montelukast [Singulair] 10 mg PO QAM 03/19/18 07/14/18 History spironolactone [Aldactone] 25 mg PO QAM 03/19/18 07/14/18 History ipratropium-albuterol 3 ml INHALATION QID 7 Days #126 ml 03/26/18 07/14/18 Rx guaifenesin 400 mg PO TID 07/14/18 07/14/18 History levalbuterol tartrate [Xopenex HFA] 2 inh INHALATION TID PRN 07/14/18 07/14/18 History prednisone 40 mg PO DAILY 07/14/18 07/14/18 History tiotropium bromide [Spiriva with 1 cap INHALATION DAILY 07/14/18 07/14/18 History HandiHaler] Patient History Medical History Tobacco use (Chronic) GERD (gastroesophageal reflux disease) (Chronic) Cirrhosis (Chronic) Hepatitis B (Chronic) COPD (chronic obstructive pulmonary disease) (Acute) HTN (hypertension) (Chronic) Pneumonia (Resolved) Tachycardia (Resolved) COPD exacerbation (Resolved) Acute respiratory failure with hypoxia (Acute) COPD (chronic obstructive pulmonary disease) Cirrhosis of liver GERD (gastroesophageal reflux disease) History of hepatitis B Hypertension Tobacco abuse Family History Other Diabetes Heart disease Kidney disease Social History Preferred Language: Latvian Communication Ability: Effective Beliefs That Will Affect Care: Yarsanism Current Living Situation: [facility] Other Information That Helps Us Care for You: No Feels Safe at Home: No Smoking Status: Current every day smoker Hx Alcohol Use: No Hx Substance Use: No Review of Systems Pt non-verbal, so difficult to obtain ROS. Respiratory: + cough and + chest congestion; no wheezing on CPAP Cardiovascular: + edema (arms, legs, improved in the past few days); no chest pain Gastrointestinal: no abdominal pain, no nausea, no vomiting and no melena Neurologic: no tremor(s), no syncope and no confusion Psychiatric: + change in appetite (nodded his head yes when asked if he has had a poor appetite) Hematologic / Lymphatic: no easy bleeding, no easy bruising and no lymphadenopathy Physical Exam Vital Signs (Past 24 Hours): Last Vital Signs Temp 36.4 C L 07/27/18 04:00 Pulse 103 H 07/27/18 10:51 Resp 12 03/04/19 10:51 BP 102/59 L 07/27/18 08:38 Pulse Ox 95 07/27/18 10:51 Constitutional: + ill appearing, + cachectic and + edematous (arms) Neck: trachea midline, no thyromegaly trach in place, attached to CPAP Respiratory: normal respiratory effort, lungs clear to auscultation Cardiovascular: Rate/Rhythm: regular rate and regular rhythm 2-3/6 systolic murmur. Gastrointestinal (Abdomen): Percussion/Palpation: abdomen soft non distended, hypoactive BS, no palpable hepatospelenomegaly or other abdomen masses Skin: no rashes, warm and dry Neurologic: PERRL, EOMI, accommodation nl, no face palsy, no dysarthria awake; not confused Motor/Sensory: no tremor Psychiatric: A+Ox3, euthymic affect Lymphatic: no cervical or axillary lymphadenopathy Results & Data Diagnostic Findings CT chest 07/14/18: Thyroid: Imaged portions of the thyroid gland are normal in appearance. Thoracic aorta: The thoracic aorta is normal in course and caliber, noting standard 3 vessel arch anatomy. Heart: The heart is normal in size. There are coronary artery calcifications. There is a trace pericardial effusion. Lungs and pleural spaces: There is an endotracheal tube 5.3 cm above the kendrick. There is a nasogastric tube which extends into the stomach. There are no pleural effusions. There is severe pulmonary emphysema. There is no lobar consolidation. There are dependent atelectatic changes. There is mild subpleural septal thickening. An element of mild pulmonary vascular congestion/fluid overload must be considered. There is no pneumothorax. There is persistent areas of interstitial scarring. There are minimal secretions within the trachea and proximal mainstem bronchi TMediastinum: Mediastinal lymph nodes are the upper limits of normal in size. Aracelis: There is no evidence of pathologic hilar adenopathy given the limitations of a noncontrast study Axilla: There is no evidence of pathologic axillary lymphadenopathy Upper abdomen: Partially visualized upper abdominal viscera is within normal limits. Skeletal structures: There are no lytic or blastic osseous lesions. IMPRESSION: 1. Endotracheal tube 5.3 cm above the kendrick 2. Nasogastric tube within the stomach 3. Severe pulmonary emphysema with areas of interstitial scarring 4. Low-density secretions within distal trachea and proximal mainstem bronchi 5. Increased interstitial markings within the right lung with mild subpleural septal edema. The findings favor asymmetric interstitial edema. An interstitial infectious process could appear similar but is felt to be statistically less likely
--- NOTE | 2018-07-27 13:10 | Ultrasound Report ---
US abdomen limited CLINICAL HISTORY: ? ascites COMPARISON STUDY: None. FINDINGS: Real-time sonographic imaging of the abdomen was performed with operations representative images submi tted. Trace ascites is seen within the right left upper quadrants. IMPRESSION: Trace upper abdominal ascites. Electronically signed by: Mike Whittaker M.D. 07/27/2018 1:09 PM
--- NOTE | 2018-07-27 13:19 | Ultrasound Report ---
ULTRASOUND RIGHT UPPER QUADRANT ABDOMEN CLINICAL HISTORY: Ascites. COMPARISON STUDY: Abdominal radiograph dated 07/27/2018. TECHNIQUE: Real-time, grayscale, and color flow sonography of the right upper quadrant of the abdomen was performed. Images are reviewed in the transverse and longitudinal planes. FINDINGS: Liver: The liver is top normal in size and homogeneous in echotexture. There is no intrahepatic bilia ry ductal dilatation. The main portal vein is patent. Gallbladder: There are numerous shadowing calcified gallstones end biliary sludge. There is no gallbl adder wall thickening. Trace nonspecific pericholecystic fluid is noted. A sonographic Mckeon's sign is reportedly absent. The common bile duct measures up to 0.3 cm in diameter. Pancreas: Visualized portions of the pancreatic head and body are normal in appearance. Right kidney: Survey images of the right kidney demonstrate normal size and echotexture. There is no hydronephrosis. Ascites: There is trace perihepatic ascites. Lower chest: Pericardial fluid is suggested. IMPRESSION: 1. Cholelithiasis and biliary sludge. There is no sonographic evidence of acute cholecystitis. 2. Trace perihepatic ascites is observed. 3. The liver is top normal in size and homogeneous in echotexture. Electronically signed by: Dwayne Mays M.D. 07/27/2018 1:18 PM
[2018-07-27] MEDS ORDERED: PROPOFOL IV EMULSION 10 MG/ML 100 ML VIAL IV ONE (14:02)
[2018-07-27] MEDS ORDERED: PROPOFOL 1,000 MG/100 ML VIAL IV STA (14:02)
[2018-07-27] MEDS ORDERED: fentaNYL citrate 100 MCG/2 ML VIAL ONE (14:14)
[2018-07-27] MEDS ORDERED: PROPOFOL IV EMULSION 10 MG/ML 20 ML VIAL IV STA (14:16)
[2018-07-27] MEDS ORDERED: fentaNYL citrate 100 MCG/2 ML VIAL IV ONE (14:16)
--- NOTE | 2018-07-27 14:36 | GI REPORT ---
Patient Name: Rodolfo Shirley Procedure Date: 07/27/2018 2:19 PM Date of : 1955 Admit Type: Inpatient Age: 62 Gender: Male Attending MD: Danilo Staley MD Procedure: Upper GI endoscopy Providers: Danilo Staley MD, Ayanna Brooks (Assisting Doctor) Referring MD: Shayne Nava Indications: Place PEG because patient is unable to eat, Place PEG due to impaired swallowing, Place PEG because patient requires ventilator support Medicines: Propofol total dose 100 mg IV, Fentanyl 100 micrograms IV Complications: No immediate complications. Estimated blood loss: None. Estimated Blood Loss: Estimated blood loss: none. Procedure: Pre-Anesthesia Assessment: - Prior to the procedure, a History and Physical was performed, and patient medications, allergies and sensitivities were reviewed. The patient's tolerance of previous anesthesia was reviewed. - ASA Grade Assessment: IV - A patient with severe systemic disease that is a constant threat to life. After obtaining informed consent, the endoscope was passed under direct vision. Throughout the procedure, the patient's blood pressure, pulse, and oxygen saturations were monitored continuously. The Endoscope was introduced through the mouth, and advanced to the third part of duodenum. The upper GI endoscopy was accomplished with ease. The patient tolerated the procedure well. Findings: The upper third of the esophagus, middle third of the esophagus and lower third of the esophagus were normal. The Z-line was regular and was found 44 cm from the incisors. A small hiatal hernia was present. The entire examined stomach was normal. The patient was placed in the supine position for PEG placement. The stomach was insufflated to appose gastric and abdominal wiggins. A site was located in the body of the stomach with excellent transillumination and manual external pressure for placement. The abdominal wall was marked and prepped in a sterile manner. The area was anesthetized with 3 mL of 1% lidocaine. The trocar needle was introduced through the abdominal wall and into the stomach under direct endoscopic view. A snare was introduced through the endoscope and opened in the gastric lumen. The guide wire was passed through the trocar and into the open snare. The snare was closed around the guide wire. The endoscope and snare were removed, pulling the wire out through the mouth. A skin incision was made at the site of needle insertion. The externally removable 20 Fr VenkatCook gastrostomy tube was lubricated. The G-tube was tied to the guide wire and pulled through the mouth and into the stomach. The trocar needle was removed, and the gastrostomy tube was pulled out from the stomach through the skin. The external bumper was attached to the gastrostomy tube, and the tube was cut to remove the guide wire. The final position of the gastrostomy tube was confirmed by relook endoscopy, and skin marking noted to be 1.5 cm at the external bumper. The final tension and compression of the abdominal wall by the PEG tube and external bumper were checked and revealed that the bumper was loose and lightly touching the skin. The feeding tube was capped, and the tube site cleaned and dressed. The examined duodenum was normal. Impression: - Normal upper third of esophagus, middle third of esophagus and lower third of esophagus. - Z-line regular, 44 cm from the incisors. - Small hiatal hernia. - Normal stomach. - Normal examined duodenum. - An externally removable PEG placement was successfully completed. - No specimens collected. Recommendation: - Please follow the post-PEG recommendations including: Nutrition consult for formula and volume. Danilo Staley M.D. Danilo Staley MD 07/27/2018 2:36:03 PM This report has been signed electronically. Note Initiated On: 07/27/2018 2:19 PM Number of Addenda: 0 I attest to the content of the Intraoperative Record and orders documented therein, exceptions below {[id number]}
[2018-07-27] MEDS: ASPIRIN 81 MG CHEW NG SCH (15:28)
[2018-07-27] MEDS: FAMOTIDINE 20 MG TAB PO SCH ×2 (15:28→20:15)
[2018-07-27] MEDS: MULTI VIT W/MINERALS LIQUID 15 ML UDP PO SCH (15:28)
[2018-07-27] MEDS: POT PHOSPHATE MONOBASIC W/ SOD TAB PO SCH (15:29)
[2018-07-27] MEDS: SPIRONOLACTONE 25 MG TAB PO SCH (15:29)
[2018-07-27] MEDS: predniSONE 10 MG TABLET PO SCH (15:29)
[2018-07-27] MEDS: FUROSEMIDE 40 MG TAB PO SCH (15:29)
[2018-07-27] MEDS: MEGESTROL ACETATE 800 MG/20 ML UDP PO SCH (15:30)
[2018-07-27] MEDS: METOPROLOL TARTRATE 50 MG TAB PO SCH ×2 (15:30→20:15)
[2018-07-27] MEDS: ZINC SULFATE 220 MG CAPSULE PO SCH (15:30)
[2018-07-27] MEDS: AMOXICILLIN/CLAVULANATE SUSP 400MG/5ML 50ML BOTTLE NG SCH ×3 (15:31→18:13)
[2018-07-27] MEDS: ENOXAPARIN INJ 40 MG/0.4 ML SYR SQ SCH (15:31)
[2018-07-27] MEDS: FLUCONAZOLE 200 MG/5 ML UDP PO SCH (15:34)
--- NOTE | 2018-07-27 15:54 | Palliative Care Progress Note ---
Date of Service July 27, 2018 Assessment & Plan (1) Goals of care, counseling/discussion: -62 year old male with PMH severe COPD, dependent on oxygen, incarcerated inmate, history of hepatitis B, liver cirrhosis, and others, presented to ED with increased SOB accompanied with persistent cough. The patient was severely agitated due to respiratory failure and failed noninvasive positive pressure ventilation. The patient was intubated due to respiratory failure and transferred to the ICU for further management.Chest x-ray showing pulmonary emphysema rather than congestive heart failure. He had a mild troponin elevation this admission, and according to cardiology is likely demand ischemia/myocardial infarction in the setting of profound hypoxia and underlying coronary heart disease, ischemic cardiomyopathy with EF 20%. Patient was not able to be weaned from the vent-had trach placed-continues to be vent dependent. -[facility] medical authorization specialist was contacted by Dr. Nino. [facility] contacted us back and gave patient's sister, Dai's, phone number as the primary contact. -Of now, patient's mother, Vera, is alive but is elderly and frail. She struggles with decision making, which is why patient's sister Dai is primary contact that was listed at the [facility]. Patient has a brother, Austin, who is also alive and well but does not make decisions for patient. Austin is kept in the loop by Dai. Again, the [facility] authorized us to call patient's sister Dai for medical decision-making. - Patient had a G-tube placed today-plan to transfer to the [facility] that can manage vent - Patient's goal is to be able to wean off vent, be granted parole and go live with his sister in [facility]-discussed how time will tell if he is able to be weaned from the vent given his severe COPD - Patient is for transfer as soon as medically stable to [facility] that can manage vent (2) Acute systolic CHF (congestive heart failure), NYHA class 2: (3) Non-ST elevated myocardial infarction (non-STEMI): (4) Cirrhosis: (5) COPD (chronic obstructive pulmonary disease): Subjective Patient seen and examined in the ICU. Patient had PEG tube placed earlier today. Patient able to communicate with nodding yes and no and writing on a white board. Patient has been up for parole this past March-this was put on hold due to his illness. Patient's goal is to be able to wean from the vent, be granted parole, and go live with his sister in [facility]. Review of Systems Patient denies fever, chills, increased shortness of breath, or abdominal pain. Physical Exam Vital Signs (Past 24 Hours): Last Vital Signs Temp 37.0 C 07/27/18 10:00 Pulse 95 H 07/27/18 14:36 Resp 16 07/27/18 14:36 BP 92/51 L 07/27/18 14:36 Pulse Ox 97 07/27/18 14:36 Physical Exam: PE: NAD, awake and alert, on vent via trach HEENT: EOMI, normal hearing Resp: Unlabored, on vent,Diminished breath sounds bilaterally CV: Regular rate, trace edema bilateral lower extremities to just below the knee Abdomen: G-tube in place Neuro: Alert and oriented Time Spent Attending Total time spent 35 minutes with greater than 50% of the time spent at bedside determining patient's goals of care as well as discussing patient's limited prognosis (1) COPD (chronic obstructive pulmonary disease) COPD type: unspecified COPD Qualified Code(s): J44.9 - Chronic obstructive pulmonary disease, unspecified
[2018-07-27] MEDS ORDERED: POTASSIUM PHOSPHATE 15 MMOL in SODIUM CHLORIDE 0.9% 250 ML IV ONE (16:15)
--- NOTE | 2018-07-27 17:08 | Hospitalist Progress Note ---
Date of Service July 27, 2018 Assessment & Plan (1) Acute respiratory failure with hypoxia: per Dr Banegas notes: Presented with acute hypoxic respiratory failure due to combination of COPD exacerbation/severe ischemic cardiomyopathy biventricular heart failure with decompensated CHF Sent from correctional facility/senior living at [facility] with acute respiratory failure/hypoxia was lethargic/intubated Patient was intubated in ER for airway protection Prior history of advanced COPD: Gold stage III, Patient required long-term mechanical ventilation Status post bronchoscopy 07/14/2018 Showed thick secretions /bilateral mucous plugging, cleared with suction Treated empirically on cefuroxime Failed multiple weaning trial from ventilator Status post tracheostomy 07/21/2018 Continued on mechanical ventilation on CPAP Patient will be on chronic vent dependent-plan to tx pt to a facility with jail vent support /approved by [facility] referral made to [facility] Severe ischemic cardiomyopathy with EF 20%-noted in echo Cardiology consulted Appreciate input from cardiology Patient continued with scheduled diuresis, volume status stable --on AC mode Further management per intensive care team --s/p PEG tube placement today tolerating well so far (2) Pneumonia: Afebrile, leukocytosis trending down blood cultures negative so far urine culture negative so far Cefepime changed to Zosyn, now on Augmentin Vancomycin discontinued Continue fluconazole monitor closely (3) Non-ST elevated myocardial infarction (non-STEMI): per Dr. Banegas notes: Type II NH/non-ST elevated NH: N/A setting of demand ischemia, severe cardiomyopathy Presented with hypoxia, shortness of breath, leading to respiratory failure elevated troponins 0.092-1.210-1.150 Echo: 07/14/2018 1.Normal LV size with severely reduced systolic function: EF 20-25% global akinesis 2. Normal right ventricular size with severely reduced systolic function. The basal portion of the right ventricle free wall appears to be normally contracted, but otherwise right ventricle appears severely hypokinetic to akinetic 3. Small pericardial effusion, along the right ventricular free wall . No echocardiographic evidence of tamponade physiology. Unknown baseline type II non-ST elevated NH/demand ischemia in the setting of respiratory failure/ hypoxia Was on dobutamine gtt for severe cardiomyopathy/biventricular heart failure Weaned off -- continue Metoprolol tartrate 25mg po BID (4) Acute systolic CHF (congestive heart failure), NYHA class 2: severe ischemic cardiomyopathy with EF of 20-25%, with global hypokinesis with biventricular heart failure -- appears euvolemic continue Lasix 40mg po daily, Spironolactone 25mg po daily (5) COPD (chronic obstructive pulmonary disease): Baseline advanced COPD, recent admission few months back at [facility] with COPD exacerbation Presented with hypoxia, respiratory failure, due to COPD exacerbation requiring mechanical ventilation, bronchoscopy continue Nebs, Prednisone daily (6) Discharge planning issues: DISPOSITION: Pt is a prisoner at [facility] Per [facility] patient will require transfer to [facility] as [facility] is not able to accommodate ventilator patients. appreciate input from [employer] (7) Constipation: GoLYTELY given resolved Subjective Follow-up for acute respiratory failure seen resting in bed, comfortable s/p PEG tube placement, no issues so far denies dyspnea no abdominal pain no other symptoms Physical Exam Vital Signs (Past 24 Hours): Last Vital Signs Temp 37.0 C 07/27/18 10:00 Pulse 95 H 07/27/18 16:01 Resp 16 07/27/18 14:36 BP 108/64 07/27/18 16:00 Pulse Ox 95 07/27/18 16:01 Physical Exam: General- oriented x 3, not in distress, speaks in sentences with no effort or accessory muscle use Eyes- anicteric Neck- no JVD Lungs- clear breath sounds bilaterally, no rhonchi/wheeze Heart- normal rate, regular rhythm; no murmurs Abdomen- normal bowel sounds, nondistended, soft, nontender PEG tube in place Extremities- no pretibial edema, no calf tenderness Neuro- alert, oriented x 3; no gross focal neurologic deficits Skin- warm & dry Results & Data Laboratory Results Laboratory Results - last 24 hr 07/26/18 07/26/18 07/27/18 18:19 23:48 05:26 WBC 21.08 H RBC 3.24 L Hgb 9.7 L Hct 29.4 L MCV 90.7 MCH 29.9 MCHC 33.0 RDW Std Deviation 50.3 H RDW Coeff of Leann 15.0 H Plt Count 188 MPV 9.5 Immature Gran % (Auto) 0.5 Neut % (Auto) 88.4 Lymph % (Auto) 7.0 [place] % (Auto) 3.9 Eos % (Auto) 0.2 Baso % (Auto) 0.0 Immature Gran # (Auto) 0.10 H Neut # (Auto) 18.64 H Lymph # (Auto) 1.47 [place] # (Auto) 0.82 H Eos # (Auto) 0.04 Baso # (Auto) 0.01 Sodium Potassium Chloride Carbon Dioxide Anion Gap BUN Creatinine Est Cr Clr Drug Dosing Est GFR ( Amer) Est GFR (Non-Af Amer) BUN/Creatinine Ratio Glucose POC Glucose 125 H 100 H Calcium Phosphorus Magnesium Total Bilirubin Direct Bilirubin AST ALT Alkaline Phosphatase Total Protein Albumin 07/27/18 07/27/18 07/27/18 05:26 05:33 11:21 WBC RBC Hgb Hct MCV MCH MCHC RDW Std Deviation RDW Coeff of Leann Plt Count MPV Immature Gran % (Auto) Neut % (Auto) Lymph % (Auto) [place] % (Auto) Eos % (Auto) Baso % (Auto) Immature Gran # (Auto) Neut # (Auto) Lymph # (Auto) [place] # (Auto) Eos # (Auto) Baso # (Auto) Sodium 133 L Potassium 3.2 L D Chloride 90 L Carbon Dioxide 38 H Anion Gap 5.0 BUN 19 H Creatinine 0.29 L Est Cr Clr Drug Dosing 222.4 Est GFR ( Amer) > 150.0 Est GFR (Non-Af Amer) 144.3 BUN/Creatinine Ratio 66.2 H Glucose 81 POC Glucose 84 83 Calcium 8.1 L Phosphorus 2.4 L Magnesium 1.8 Total Bilirubin 1.0 Direct Bilirubin 0.4 H AST 19 ALT 35 Alkaline Phosphatase 57 Total Protein 5.7 L Albumin 1.6 L (1) Pneumonia Laterality: bilateral Lung location: lower lobe of lung Pneumonia type: due to unspecified organism Qualified Code(s): J18.1 - Lobar pneumonia, unspecified organism (2) COPD (chronic obstructive pulmonary disease) COPD type: unspecified COPD Qualified Code(s): J44.9 - Chronic obstructive pulmonary disease, unspecified
[2018-07-27 17:29] LABS: iSTAT Allen Test Pass; iSTAT Arterial Blood Gas HCO3 38 meg/L (19-24); iSTAT Arterial Blood Gas pCO2 52 mmHg (35-46); iSTAT Arterial Blood Gas pH 7.47 (7.35-7.45); iSTAT Carbon Dioxide 39 mEq/l (24-31); iSTAT FiO2 40 %; iSTAT Site L Radial
[2018-07-27] MEDS: MAGNESIUM SULFATE / D5W 1 GM/100 ML BAG IV SCH ×2 (18:13→19:26)
[2018-07-27] MEDS: PROSOURCE NO CARB 30 ML/PKT PO SCH (20:14)
[2018-07-28] MEDS: LEVALBUTEROL 1.25MG/0.5ML NEB INH SCH ×6 (03:53→23:17)
[2018-07-28] MEDS: IPRATROPIUM BROMIDE NEB SOLN 0.02% 2.5 ML VIAL NEB SCH ×6 (03:53→23:17)
[2018-07-28] MEDS: IMPACT LIQD 1.0 CAL 1,000 ML BAG OG SCH (04:05)
[2018-07-28 04:35] LABS: Basophils # (auto) 0.01 K/uL (0-0.2); Basophils % (auto) 0.1 %; Eosinophils # (auto) 0.01 K/uL (0-0.5); Eosinophils % (auto) 0.1 %; Hematocrit (blood only) 29.4 % (42-52); Hemoglobin 9.7 g/dL (14.0-18.0); Immature Granulocytes # (auto) 0.07 K/uL (0.00-0.02); Immature Granulocytes % (auto) 0.4 %; Lymphocytes # (auto) 0.71 K/uL (1.2-3.4); Lymphocytes % (auto) 4.1 %; Mean Corpuscular Volume 90.7 fL (80-100); Mean Platelet Volume 9.8 fL (7.4-10.4); Monocytes # (auto) 0.91 K/uL (0.11-0.59); Monocytes % (auto) 5.3 %; Platelet Count 174 K/uL (130-400); RDW Coefficient of Variation 15.1 % (11.5-14.5); RDW Standard Deviation 49.8 fL (36.4-46.3); Red Blood Count 3.24 M/uL (4.7-6.1); White Blood Count 17.31 K/uL (4.8-10.8)
[2018-07-28 04:59] LABS: BUN Creatinine Ratio 54.5 (10-20); Blood Urea Nitrogen 19 mg/dl (7-18); Calcium 7.9 mg/dl (8.5-10.1); Carbon Dioxide 38 mmol/L (21-32); Chloride 92 mmol/L (98-107); Creatinine Clr Calc Pharmacy 189.7 ml/min; Est GFR (African American) > 150.0; Est GFR (Non-African American) 135.2; Glucose 86 mg/dl (70-99); Magnesium 2.3 mg/dl (1.8-2.4); Phosphorus 2.9 mg/dl (2.5-4.9); Potassium 3.7 mmol/L (3.5-5.1); Sodium 133 mmol/L (136-145)
[2018-07-28] MEDS: INSULIN HUMAN REGULAR SC SCH ×3 (06:23→17:31)
--- NOTE | 2018-07-28 07:26 | XRay Report ---
XR chest 1V portable HISTORY: 62 years-old Male intubation acute respiratory failure COMPARISON: Chest radiograph 07/27/2017 TECHNIQUE: Portable AP view of the chest FINDINGS: Cardiac mediastinal and hilar silhouettes appear unchanged. Right-sided PICC appears stable. Tracheos sawyer cannula overlying the midline appears unchanged. Severe bullous emphysema with bilateral mixed i nterstitial and alveolar opacities, left greater than right within a mid and lower lung zone prominen t distribution redemonstrated. Background chronic fibrotic scarring. Suggestion of a trace left pleur al effusion. Degenerative changes of the shoulders and spine. IMPRESSION: 1. Stable positioning of the right-sided PICC and tracheostomy cannula. 2. Severe bullous emphysema with chronic interstitial coarsening. 3. Multifocal opacities of the mid and lower lung zones, left greater than right redemonstrated The above report was generated using voice recognition software. It may contain grammatical, syntax o r spelling errors. Electronically signed by: Jason Marcus M.D. 07/28/2018 7:24 AM
[2018-07-28] MEDS: AMOXICILLIN/CLAVULANATE SUSP 400MG/5ML 50ML BOTTLE NG SCH ×3 (08:21→17:23)
[2018-07-28] MEDS: SPIRONOLACTONE 25 MG TAB PO SCH (08:40)
[2018-07-28] MEDS: ASPIRIN 81 MG CHEW NG SCH (08:40)
[2018-07-28] MEDS: FUROSEMIDE 40 MG TAB PO SCH (08:40)
[2018-07-28] MEDS: METOPROLOL TARTRATE 50 MG TAB PO SCH ×2 (08:40→20:34)
[2018-07-28] MEDS: predniSONE 10 MG TABLET PO SCH (08:40)
[2018-07-28] MEDS: FAMOTIDINE 20 MG TAB PO SCH ×2 (08:40→20:34)
[2018-07-28] MEDS: DOCUSATE SODIUM SYRUP 100 MG/10 ML UDC PO SCH ×2 (08:41→20:35)
[2018-07-28] MEDS: ZINC SULFATE 220 MG CAPSULE PO SCH (09:30)
[2018-07-28] MEDS: POT PHOSPHATE MONOBASIC W/ SOD TAB PO SCH (09:31)
[2018-07-28] MEDS: MEGESTROL ACETATE 800 MG/20 ML UDP PO SCH (09:31)
--- NOTE | 2018-07-28 09:35 | Gastroenterology Progress Note ---
Date of Service July 28, 2018 Assessment & Plan (1) Cirrhosis: Mr. Shirley is a 62 yr old male here with respiratory failure, post procedure day #1 from PEG tube insertion. The PEG is functioning well and there is no evidence of bleeding/leaking. Continue using for feedings/meds. Wash around the insertion site with soap/water daily. No dressings between the bumper and the skin please. GI will sign off. (2) Hepatitis B: (3) Dysphagia: (4) Protein calorie malnutrition: Supervising Physician Co-Signing Physician Notes I have performed a history and physical examination of this patient and reviewed the electronic medical record. Specifically, on physical examination PEG site is clean without inflammation. I have discussed the case with PRANAV Nathan. The above note reflects my findings, conclusions, and recommendations. Danilo Staley MD Subjective Mr. Shirley is a 62 yr old male with vent dependent respiratory failure who had a PEG tube placed yesterday. There is no drainage or bleeding from the insertion site today. The tube is sitting at 1.5 and seemed slightly tight against the skin - so I moved it back to 2 where it can be turned but there is no excessive space between the flange and the skin. Respiratory: + cough and + chest congestion; no wheezing Cardiovascular: + edema (arms, legs, improved in the past few days); no chest pain Psychiatric: + change in appetite (nodded his head yes when asked if he has had a poor appetite) Physical Exam Vital Signs (Past 24 Hours): Last Vital Signs Temp 36.9 C 07/28/18 08:00 Pulse 109 H 07/28/18 09:00 Resp 20 07/28/18 09:00 BP 100/68 07/28/18 09:00 Pulse Ox 95 07/28/18 09:00 Constitutional: + ill appearing, + cachectic and + edematous (arms) Neck: trachea midline, no thyromegaly Respiratory: normal respiratory effort, lungs clear to auscultation Cardiovascular: Rate/Rhythm: regular rate and regular rhythm Gastrointestinal (Abdomen): Percussion/Palpation: abdomen soft PEG tub intact, no bleeding or discharge around the insertion site Skin: no rashes, warm and dry Neurologic: PERRL, EOMI, accommodation nl, no face palsy, no dysarthria awake; not confused Motor/Sensory: no tremor Psychiatric: A+Ox3, euthymic affect Lymphatic: no cervical or axillary lymphadenopathy
[2018-07-28] MEDS: FLUCONAZOLE 200 MG/5 ML UDP PO SCH (09:56)
[2018-07-28] MEDS: MULTI VIT W/MINERALS LIQUID 15 ML UDP PO SCH (09:56)
[2018-07-28] MEDS: ENOXAPARIN INJ 40 MG/0.4 ML SYR SQ SCH (13:15)
--- NOTE | 2018-07-28 14:34 | Critical Care Progress Note ---
Date of Service July 28, 2018 Assessment & Plan (1) COPD (chronic obstructive pulmonary disease): PLAN: Neuro: Analgesia -Tylenol -Weaned from oxycodone Resp: Acute hypercarbic hypoxic respiratory failure Severe COPD -Status post tracheostomy postop day 5 -Moderate normal negro from BAL -Added Provigil for apneic periods -Discontinued Severe pulmonary hypertension: Resolved CV: Poor cardiac index: Resolved Biventricular heart failure -Metoprolol 25 mg twice daily -Increased 50 mg twice daily -Reviewed Cardiology consult Fluids/Renal: Diuresis: - 40 mg Lasix daily - daily Spironolactone Hypokalemia - daily Neutra-Phos 1 tablet ID: 7-day course of cefuroxime finished Left lower lobe pneumonia -Zosyn -Patient's ventilatory requirements have been decreasing, there is no new oxygen requirement, only changes increase in leukocytosis (improving), patient on steroids -We will finish 7-day course of Diflucan, change antibiotics to Augmentin for total of 10-day effective therapy course to include days of cefepime, discontinue vancomycin pending repeat nasal swab being negative GI/Nutrition: Tolerating tube feeds at goal Constipation -Resolved with last BM 07/27/18 Pepcid for GI prophylaxis Discussed with patient need for PEG tube he is agreeable to placement of PEG tube -GI consult, peg inserted yesterday at bedside -Tube feeds restarted severe protein calorie malnutrition - severe weakness - baseline testosterone level: 59.5 - 100mg testosterone IM weekly - Megace 800 mg daily - patient end stage COPD, with significant cachexia, androgens to hopefully improve function and quality of life in end-stage disease process. - aggressive nutritional support currently receiving 85 g protein which is approximately 1.5 mg/kg -increase to 2 mg/kg, 1 packet Prosource daily Heme: Anemia DVT prophylaxis: Lovenox Endocrine: ICU hyperglycemia protocol Aggressive PT OT mobilization Skin: Decubiti over the presacral area. Vascular access: PICC line Code Status: DNR in event of cardiac arrest Supervising Physician Co-Signing Physician Notes I have seen and examined this patient with [PRANAV Reyes] and agree with his assessment and plan of care. We are going to continue with current plan of care as prescribed. Will continue with current management as prescribed. Dr. Eduardo Winters. Subjective 62-year-old male with end-stage COPD exacerbation with pneumonia requiring long- term ventilation via tracheostomy with plan to transfer to nursing facility. Received PEG tube yesterday. Patient hemodynamically stable, remaining in ICU for ventilatory support. Review of Systems All systems reviewed & are unremarkable except as noted in HPI & below Limited ROS secondary to tracheostomy with ventilator support Physical Exam Vital Signs (Past 24 Hours): Last Vital Signs Temp 37.0 C 07/28/18 12:00 Pulse 108 H 07/28/18 14:00 Resp 15 07/28/18 13:51 BP 115/72 07/28/18 14:00 Pulse Ox 97 07/28/18 14:00 Constitutional: WD/WN, vitals as above + frail appearing, comfortable and + mechanically ventilated Eyes: PERRL, conjunctivae normal, anicteric sclerae Neck: trachea midline Respiratory: normal respiratory effort, lungs clear to auscultation Cardiovascular: RRR, no murmur, no edema Heart Sounds: normal S1 and normal S2 Gastrointestinal (Abdomen): normal bowel sounds, soft, nontender, no hepatosplenomegaly Skin: no rashes, warm and dry Neurologic: PERRL, EOMI, accommodation nl, no face palsy, no dysarthria (1) COPD (chronic obstructive pulmonary disease) COPD type: unspecified COPD Qualified Code(s): J44.9 - Chronic obstructive pulmonary disease, unspecified
[2018-07-29] MEDS: INSULIN HUMAN REGULAR SC SCH ×2 (00:04→06:33)
[2018-07-29] MEDS: IPRATROPIUM BROMIDE NEB SOLN 0.02% 2.5 ML VIAL NEB SCH ×6 (02:15→23:05)
[2018-07-29] MEDS: LEVALBUTEROL 1.25MG/0.5ML NEB INH SCH ×6 (02:15→23:05)
[2018-07-29] MEDS: IMPACT LIQD 1.0 CAL 1,000 ML BAG PEG SCH ×2 (04:08→21:55)
[2018-07-29 04:33] LABS: Eosinophils # (auto) 0.04 K/uL (0-0.5); Eosinophils % (auto) 0.3 %; Hematocrit (blood only) 28.7 % (42-52); Hemoglobin 9.4 g/dL (14.0-18.0); Immature Granulocytes # (auto) 0.07 K/uL (0.00-0.02); Immature Granulocytes % (auto) 0.5 %; Lymphocytes # (auto) 0.66 K/uL (1.2-3.4); Lymphocytes % (auto) 4.3 %; Mean Corpuscular Hgb Conc 32.8 g/dL (32-36); Mean Corpuscular Volume 91.4 fL (80-100); Monocytes % (auto) 5.2 %; Neutrophils # (auto) 13.87 K/uL (1.4-6.5); Neutrophils % (auto) 89.7 %; Platelet Count 189 K/uL (130-400); RDW Coefficient of Variation 14.9 % (11.5-14.5); RDW Standard Deviation 49.8 fL (36.4-46.3); Red Blood Count 3.14 M/uL (4.7-6.1); White Blood Count 15.44 K/uL (4.8-10.8)
[2018-07-29 04:54] LABS: BUN Creatinine Ratio 44.5 (10-20); Calcium 7.9 mg/dl (8.5-10.1); Creatinine Clr Calc Pharmacy 167.7 ml/min; Est GFR (African American) 149.6; Est GFR (Non-African American) 129.1; Potassium 3.5 mmol/L (3.5-5.1)
[2018-07-29 05:02] LABS: Phosphorus 2.3 mg/dl (2.5-4.9)
--- NOTE | 2018-07-29 06:57 | XRay Report ---
XR chest 1V portable CLINICAL HISTORY: intubation tube position COMPARISON STUDY: 07/28/2017 FINDINGS: Tracheostomy tube in good position. Central catheters in the superior vena cava. Unchanging parenchymal infiltrate left base. Emphysematous changes stable. IMPRESSION: Tracheostomy tube and central catheter are in good position. No change overall compared to the prior study. The above report was generated using voice recognition software. It may contain grammatical, syntax or spelling errors. Electronically signed by: Joo Agosto M.D. 07/29/2018 6:54 AM
[2018-07-29] MEDS ORDERED: POTASSIUM CHLORIDE 20 MEQ/15 ML UDC PO STA (07:14)
--- NOTE | 2018-07-29 08:12 | Hospitalist Progress Note ---
Date of Service July 29, 2018 Assessment & Plan (1) Acute respiratory failure with hypoxia: per Dr Banegas notes: Presented with acute hypoxic respiratory failure due to combination of COPD exacerbation/severe ischemic cardiomyopathy biventricular heart failure with decompensated CHF Sent from correctional facility/longterm at [facility] with acute respiratory failure/hypoxia was lethargic/intubated Patient was intubated in ER for airway protection Prior history of advanced COPD: Gold stage III, Patient required long-term mechanical ventilation Status post bronchoscopy 07/14/2018 Showed thick secretions /bilateral mucous plugging, cleared with suction Treated empirically on cefuroxime Failed multiple weaning trial from ventilator Status post tracheostomy 07/21/2018 Continued on mechanical ventilation on CPAP Patient will be on chronic vent dependent-plan to tx pt to a facility with buttermaker vent support /approved by Skilled Nursing referral made to [facility] Severe ischemic cardiomyopathy with EF 20%-noted in echo Cardiology consulted Appreciate input from cardiology Patient continued with scheduled diuresis, volume status stable - remains on AC mode Further management per intensive care team --s/p PEG tube placement -- tolerating well (2) Pneumonia: Afebrile, leukocytosis trending down blood cultures negative so far urine culture negative so far Cefepime changed to Zosyn, now on Augmentin Vancomycin discontinued Continue fluconazole afebrle, HD stable (3) Non-ST elevated myocardial infarction (non-STEMI): per Dr. Banegas notes: Type II OK/non-ST elevated OK: N/A setting of demand ischemia, severe cardiomyopathy Presented with hypoxia, shortness of breath, leading to respiratory failure elevated troponins 0.092-1.210-1.150 Echo: 07/14/2018 1.Normal LV size with severely reduced systolic function: EF 20-25% global akinesis 2. Normal right ventricular size with severely reduced systolic function. The basal portion of the right ventricle free wall appears to be normally contracted, but otherwise right ventricle appears severely hypokinetic to akinetic 3. Small pericardial effusion, along the right ventricular free wall . No echocardiographic evidence of tamponade physiology. Unknown baseline type II non-ST elevated OK/demand ischemia in the setting of respiratory failure/ hypoxia Was on dobutamine gtt for severe cardiomyopathy/biventricular heart failure Weaned off -- continue Metoprolol tartrate 25mg po BID (4) Acute systolic CHF (congestive heart failure), NYHA class 2: severe ischemic cardiomyopathy with EF of 20-25%, with global hypokinesis with biventricular heart failure -- appears euvolemic continue Lasix 40mg po daily, Spironolactone 25mg po daily (5) COPD (chronic obstructive pulmonary disease): Baseline advanced COPD, recent admission few months back at [facility] with COPD exacerbation Presented with hypoxia, respiratory failure, due to COPD exacerbation requiring mechanical ventilation, bronchoscopy continue Nebs, Prednisone daily (6) Discharge planning issues: DISPOSITION: Pt is a prisoner at [facility] Per [facility] patient will require transfer to [facility] as [facility] is not able to accommodate ventilator patients. appreciate input from Decorative Cutting Machine Tender (7) Constipation: GoLYTELY given resolved Subjective ff up for acute respiratory failure seen sitting up in bed MV remains in AC mode feels fine overall no dyspnea, pain tolerating peg tube, no issues no other problems per staffing manager Physical Exam Vital Signs (Past 24 Hours): Last Vital Signs Temp 36.6 C 07/29/18 04:00 Pulse 101 H 07/29/18 05:03 Resp 15 07/29/18 05:03 BP 110/67 07/29/18 04:00 Pulse Ox 99 07/29/18 05:03 Physical Exam: General- oriented x 3, not in distress Eyes- anicteric Neck- no JVD trach in place: no bleeding, edema/erythema, no discharge Lungs- mild rhonchi at the bases, no wheezing Heart- normal rate, regular rhythm; no murmurs Abdomen- normal bowel sounds, nondistended, soft, nontender PEG tube in place, no discharge/signs of infection Extremities- no pretibial edema, no calf tenderness Neuro- alert, oriented ; no gross focal neurologic deficits Skin- warm & dry Results & Data Laboratory Results Laboratory Results - last 24 hr 07/28/18 07/28/18 07/28/18 13:13 17:26 23:42 WBC RBC Hgb Hct MCV MCH MCHC RDW Std Deviation RDW Coeff of Leann Plt Count MPV Immature Gran % (Auto) Neut % (Auto) Lymph % (Auto) [place] % (Auto) Eos % (Auto) Baso % (Auto) Immature Gran # (Auto) Neut # (Auto) Lymph # (Auto) [place] # (Auto) Eos # (Auto) Baso # (Auto) Sodium Potassium Chloride Carbon Dioxide Anion Gap BUN Creatinine Est Cr Clr Drug Dosing Est GFR ( Amer) Est GFR (Non-Af Amer) BUN/Creatinine Ratio Glucose POC Glucose 135 H 153 H 125 H Calcium Phosphorus Magnesium 07/29/18 07/29/18 07/29/18 03:59 03:59 06:32 WBC 15.44 H RBC 3.14 L Hgb 9.4 L Hct 28.7 L MCV 91.4 MCH 29.9 MCHC 32.8 RDW Std Deviation 49.8 H RDW Coeff of Leann 14.9 H Plt Count 189 MPV 10.0 Immature Gran % (Auto) 0.5 Neut % (Auto) 89.7 Lymph % (Auto) 4.3 [place] % (Auto) 5.2 Eos % (Auto) 0.3 Baso % (Auto) 0.0 Immature Gran # (Auto) 0.07 H Neut # (Auto) 13.87 H Lymph # (Auto) 0.66 L [place] # (Auto) 0.80 H Eos # (Auto) 0.04 Baso # (Auto) 0.00 Sodium 133 L Potassium 3.5 Chloride 92 L Carbon Dioxide 39 H Anion Gap 2.0 L BUN 17 Creatinine 0.38 L Est Cr Clr Drug Dosing 167.7 Est GFR ( Amer) 149.6 Est GFR (Non-Af Amer) 129.1 BUN/Creatinine Ratio 44.5 H Glucose 142 H POC Glucose 123 H Calcium 7.9 L Phosphorus 2.3 L Magnesium 2.0 (1) Pneumonia Laterality: bilateral Lung location: lower lobe of lung Pneumonia type: due to unspecified organism Qualified Code(s): J18.1 - Lobar pneumonia, unspecified organism (2) COPD (chronic obstructive pulmonary disease) COPD type: unspecified COPD Qualified Code(s): J44.9 - Chronic obstructive pulmonary disease, unspecified
[2018-07-29] MEDS: AMOXICILLIN/CLAVULANATE SUSP 400MG/5ML 50ML BOTTLE NG SCH ×3 (08:31→16:54)
[2018-07-29] MEDS: FLUCONAZOLE 200 MG/5 ML UDP PO SCH (08:33)
[2018-07-29] MEDS: MULTI VIT W/MINERALS LIQUID 15 ML UDP PO SCH (08:33)
[2018-07-29] MEDS: ZINC SULFATE 220 MG CAPSULE PO SCH (08:34)
[2018-07-29] MEDS: METOPROLOL TARTRATE 50 MG TAB PO SCH ×2 (08:34→20:21)
[2018-07-29] MEDS: POT PHOSPHATE MONOBASIC W/ SOD TAB PO SCH (08:34)
[2018-07-29] MEDS: FUROSEMIDE 40 MG TAB PO SCH (08:34)
[2018-07-29] MEDS: FAMOTIDINE 20 MG TAB PO SCH ×2 (08:34→20:21)
[2018-07-29] MEDS: predniSONE 10 MG TABLET PO SCH (08:34)
[2018-07-29] MEDS: SPIRONOLACTONE 25 MG TAB PO SCH (08:34)
[2018-07-29] MEDS: DOCUSATE SODIUM SYRUP 100 MG/10 ML UDC PO SCH ×2 (08:34→20:20)
[2018-07-29] MEDS: ASPIRIN 81 MG CHEW NG SCH (08:34)
[2018-07-29] MEDS ORDERED: FLUCONAZOLE 200 MG/5 ML UDP PO SCH (09:00)
[2018-07-29] MEDS: MEGESTROL ACETATE 800 MG/20 ML UDP PO SCH (09:18)
--- NOTE | 2018-07-29 11:15 | Critical Care Progress Note ---
Date of Service July 29, 2018 Assessment & Plan (1) COPD (chronic obstructive pulmonary disease): PLAN: Neuro: Analgesia -Tylenol -Weaned from oxycodone Resp: Acute hypercarbic hypoxic respiratory failure Severe COPD/ pneumonia -Status post tracheostomy postop day 7, trach changed cuffless today -Moderate normal negro from BAL, culture and Gram stain repeated today follow-up report -Tolerating trach collar trials Severe pulmonary hypertension: Resolved CV: Poor cardiac index: Resolved Biventricular heart failure -Metoprolol Fluids/Renal: Diuresis: - 40 mg Lasix daily - daily Spironolactone Hypokalemia - daily Neutra-Phos 1 tablet ID: 7-day course of cefuroxime finished Left lower lobe pneumonia -Zosyn -Patient's ventilatory requirements have been decreasing, there is no new oxygen requirement, leukocytosis (improving), patient on steroids -Augmentin for total of 10-day effective therapy course to include days of cefepime GI/Nutrition: Tolerating tube feeds at goal via PEG tube Constipation -Resolved with last BM 07/27/18 Pepcid for GI prophylaxis severe protein calorie malnutrition - severe weakness - baseline testosterone level: 59.5 - 100mg testosterone IM weekly - Megace 800 mg daily - patient end stage COPD, with significant cachexia, androgens to hopefully improve function and quality of life in end-stage disease process. - aggressive nutritional support currently receiving 85 g protein which is approximately 1.5 mg/kg -increase to 2 mg/kg, 1 packet Prosource daily Heme: Anemia, stable, monitor DVT prophylaxis: Lovenox Endocrine: ICU hyperglycemia protocol Aggressive PT OT mobilization Skin: Decubiti over the presacral area. Follow-up wound Recs Vascular access: PICC line Code Status: DNR in event of cardiac arrest Supervising Physician Co-Signing Physician Notes I have seen and examined the patient with Bill Zelaya. The patient overall is doing much better and has been weaned off the ventilator to the trach collar. Since he has been stable on the trach collar, the trach was changed to size 6 cuffless non fenestrated trach and we also have consulted the speech for the PasseyMuir valve. Also I have discussed with the facilty for the keno terminal operator placement and he has been accepted over there for the transfer tomorrow. In the mean time, will continue with current management as prescribed. Subjective 62-year-old male with end-stage COPD exacerbation with pneumonia requiring long- term ventilation via tracheostomy with plan to transfer to nursing facility. Received PEG tube yesterday. Patient hemodynamically stable, remaining in ICU for ventilatory support. Tolerating trach collar trials, trach changed to cuffless today. Physical Exam Vital Signs (Past 24 Hours): Last Vital Signs Temp 37.0 C 07/29/18 08:00 Pulse 84 07/29/18 10:00 Resp 20 07/29/18 10:00 BP 113/72 07/29/18 10:00 Pulse Ox 95 07/29/18 10:00 Constitutional: WD/WN, vitals as above + frail appearing, comfortable and + mechanically ventilated Eyes: PERRL, conjunctivae normal, anicteric sclerae Neck: trachea midline Respiratory: normal respiratory effort, lungs clear to auscultation Cardiovascular: RRR, no murmur, no edema Heart Sounds: normal S1 and normal S2 Gastrointestinal (Abdomen): normal bowel sounds, soft, nontender, no hepatosplenomegaly Skin: no rashes, warm and dry Neurologic: PERRL, EOMI, accommodation nl, no face palsy, no dysarthria Genitourinary: Adequate urine output, urine clear Results & Data Laboratory Results Laboratory Results - last 24 hr 07/28/18 07/28/18 07/29/18 17:26 23:42 03:59 WBC 15.44 H RBC 3.14 L Hgb 9.4 L Hct 28.7 L MCV 91.4 MCH 29.9 MCHC 32.8 RDW Std Deviation 49.8 H RDW Coeff of Leann 14.9 H Plt Count 189 MPV 10.0 Immature Gran % (Auto) 0.5 Neut % (Auto) 89.7 Lymph % (Auto) 4.3 [place] % (Auto) 5.2 Eos % (Auto) 0.3 Baso % (Auto) 0.0 Immature Gran # (Auto) 0.07 H Neut # (Auto) 13.87 H Lymph # (Auto) 0.66 L [place] # (Auto) 0.80 H Eos # (Auto) 0.04 Baso # (Auto) 0.00 Sodium Potassium Chloride Carbon Dioxide Anion Gap BUN Creatinine Est Cr Clr Drug Dosing Est GFR ( Amer) Est GFR (Non-Af Amer) BUN/Creatinine Ratio Glucose POC Glucose 153 H 125 H Calcium Phosphorus Magnesium 07/29/18 07/29/18 03:59 06:32 WBC RBC Hgb Hct MCV MCH MCHC RDW Std Deviation RDW Coeff of Leann Plt Count MPV Immature Gran % (Auto) Neut % (Auto) Lymph % (Auto) [place] % (Auto) Eos % (Auto) Baso % (Auto) Immature Gran # (Auto) Neut # (Auto) Lymph # (Auto) [place] # (Auto) Eos # (Auto) Baso # (Auto) Sodium 133 L Potassium 3.5 Chloride 92 L Carbon Dioxide 39 H Anion Gap 2.0 L BUN 17 Creatinine 0.38 L Est Cr Clr Drug Dosing 167.7 Est GFR ( Amer) 149.6 Est GFR (Non-Af Amer) 129.1 BUN/Creatinine Ratio 44.5 H Glucose 142 H POC Glucose 123 H Calcium 7.9 L Phosphorus 2.3 L Magnesium 2.0 Medications Administered Home Medications fluticasone-salmeterol [Advair Diskus] 1 inh INHALATION BID 03/19/18 [History Confirmed 07/14/18] montelukast [Singulair] 10 mg PO QAM 03/19/18 [History Confirmed 07/14/18] spironolactone [Aldactone] 25 mg PO QAM 03/19/18 [History Confirmed 07/14/18] ipratropium-albuterol 3 ml INHALATION QID 7 Days #126 ml 03/26/18 [Rx Confirmed 07/14/18] guaifenesin 400 mg PO TID 07/14/18 [History Confirmed 07/14/18] levalbuterol tartrate [Xopenex HFA] 2 inh INHALATION TID PRN 07/14/18 [History Confirmed 07/14/18] prednisone 40 mg PO DAILY 07/14/18 [History Confirmed 07/14/18] tiotropium bromide [Spiriva with HandiHaler] 1 cap INHALATION DAILY 07/14/18 [History Confirmed 07/14/18] Active Medications Acetaminophen (Tylenol) 650 mg PO Q6H PRN PRN Reason: Fever Stop: 08/24/18 04:15 Last Admin: 07/25/18 04:45 Dose: 650 mg Documented by: Amoxicillin/Clavulanate Potassium (Augmentin Susp) 500 mg NG TIDM SIENNA Stop: 08/01/18 16:59 Last Admin: 07/29/18 14:12 Dose: 500 mg Documented by: Aspirin (Aspirin Chew) 81 mg NG DAILY [facility] Stop: 08/14/18 11:44 Last Admin: 07/29/18 08:34 Dose: 81 mg Documented by: Dextrose (Dextrose 50%) 25 - 50 ml IV UD PRN; Protocol PRN Reason: Hypoglycemia Protocol Stop: 08/13/18 10:58 Docusate Sodium (Colace) 100 mg PO BID [facility] Stop: 08/19/18 10:44 Last Admin: 07/29/18 08:34 Dose: Not Given Documented by: Enoxaparin Sodium (Lovenox) 40 mg SQ Q24H [facility] Stop: 08/13/18 11:59 Last Admin: 07/29/18 14:12 Dose: 40 mg Documented by: Enteral Nutritional Formula (Impact 1.0 Galo) 1,000 ml PEG UD [facility]; Protocol Stop: 08/27/18 09:20 Last Admin: 07/29/18 04:08 Dose: 1,000 ml Documented by: Famotidine (Pepcid) 20 mg PO BID [facility] Stop: 08/22/18 09:14 Last Admin: 07/29/18 08:34 Dose: 20 mg Documented by: Furosemide (Lasix) 40 mg PO DAILY [facility] Stop: 08/21/18 08:59 Last Admin: 07/29/18 08:34 Dose: 40 mg Documented by: Glucagon (Glucagen) 1 mg SQ UD PRN; Protocol PRN Reason: Hypoglycemia Protocol Stop: 08/13/18 10:58 Glucose (Glucose 40%) 15 - 30 gm PO UD PRN; Protocol PRN Reason: Hypoglycemia Protocol Stop: 08/13/18 10:58 Glucose (Dex4 Glucose) 4 - 8 tabs PO UD PRN; Protocol PRN Reason: Hypoglycemia Protocol Stop: 08/13/18 10:58 Heparin Sodium (Beef Lung) (Heparin Sod 10 Unit/Ml Flush) 5 ml FLUSH PRN PRN PRN Reason: Flush Stop: 08/22/18 11:58 Testosterone Cypionate 100 mg/ (Syringe) 0.5 mls @ 0 mls/hr IM Fr@1200 [facility] Stop: 08/23/18 11:59 Last Admin: 07/24/18 11:42 Dose: 1 mls/hr Documented by: Ipratropium [place] (Atrovent 0.02% 0.5mg/2.5ml) 0.5 mg NEB Q4R SIENNA Stop: 08/13/18 11:59 Last Admin: 07/29/18 11:47 Dose: 0.5 mg Documented by: Levalbuterol HCl (Xopenex 1.25mg/0.5ml Neb) 1.25 mg INH Q4R SIENNA Stop: 08/16/18 15:59 Last Admin: 07/29/18 11:48 Dose: 1.25 mg Documented by: Magnesium Citrate (Citrate) 148 - 296 ml PO DAILY PRN PRN Reason: Constipation Stop: 08/23/18 14:41 Megestrol Acetate (Megace) 800 mg PO DAILY [facility] Stop: 08/24/18 08:59 Last Admin: 07/29/18 09:18 Dose: 800 mg Documented by: Metoprolol Tartrate (Lopressor) 50 mg PO BID [facility] Stop: 08/25/18 08:59 Last Admin: 07/29/18 08:34 Dose: 50 mg Documented by: Metoprolol Tartrate (Lopressor) 2.5 mg IV Q2H PRN PRN Reason: Tachycardia Stop: 08/25/18 21:59 Last Admin: 07/27/18 16:29 Dose: 2.5 mg Documented by: Miscellaneous (Carbohydrates For Hypoglycemia) 15 - 30 gm PO UD PRN PRN Reason: Hypoglycemia Treatment Stop: 08/13/18 10:58 Multivitamins/Minerals (Cerovite Liquid) 15 ml PO DAILY [facility] Stop: 08/21/18 08:59 Last Admin: 07/29/18 08:33 Dose: 15 ml Documented by: Potassium Phosphate (Phospha 250 Neutral 155-852-130 Mg) 1 tab PO DAILY [facility] Stop: 08/23/18 08:59 Last Admin: 07/29/18 08:34 Dose: 1 tab Documented by: Prednisone (Prednisone) 10 mg PO DAILY [facility]; Taper Stop: 08/02/18 08:59 Last Admin: 07/29/18 08:34 Dose: 10 mg Documented by: Spironolactone (Aldactone) 25 mg PO DAILY [facility] Stop: 08/21/18 08:59 Last Admin: 07/29/18 08:34 Dose: 25 mg Documented by: Zinc Sulfate (Zinc Sulfate) 220 mg PO DAILY [facility] Stop: 08/21/18 09:14 Last Admin: 07/29/18 08:34 Dose: 220 mg Documented by: (1) COPD (chronic obstructive pulmonary disease) COPD type: unspecified COPD Qualified Code(s): J44.9 - Chronic obstructive pulmonary disease, unspecified
[2018-07-29] MEDS: ENOXAPARIN INJ 40 MG/0.4 ML SYR SQ SCH (14:12)
[2018-07-29] MEDS: ACETAMINOPHEN SOL 650 MG/20.3 ML UDC PO PRN (20:25)
--- NOTE | 2018-07-29 20:42 | Hospitalist Progress Note ---
Date of Service July 29, 2018 Assessment & Plan (1) Acute respiratory failure with hypoxia: per Dr Banegas notes: Presented with acute hypoxic respiratory failure due to combination of COPD exacerbation/severe ischemic cardiomyopathy biventricular heart failure with decompensated CHF Sent from correctional facility/skilled nursing at [facility] with acute respiratory failure/hypoxia was lethargic/intubated Patient was intubated in ER for airway protection Prior history of advanced COPD: Gold stage III, Patient required long-term mechanical ventilation Status post bronchoscopy 07/14/2018 Showed thick secretions /bilateral mucous plugging, cleared with suction Treated empirically on cefuroxime Failed multiple weaning trial from ventilator Status post tracheostomy 07/21/2018 Continued on mechanical ventilation on CPAP Patient will be on chronic vent dependent-plan to tx pt to a facility with [employer] vent support /approved by Group Home referral made to [facility] Severe ischemic cardiomyopathy with EF 20%-noted in echo Patient continued with scheduled diuresis, volume status stable - transitioned to trach collar tolerating so far Further management per intensive care team --s/p PEG tube placement -- tolerating well, no issues per RN (2) Pneumonia: Afebrile, leukocytosis trending down blood cultures negative urine culture negative Cefepime changed to Zosyn, completing Augmentin Vancomycin discontinued Continue fluconazole afebrle, HD stable (3) Non-ST elevated myocardial infarction (non-STEMI): per Dr. Banegas notes: Type II ME/non-ST elevated ME: N/A setting of demand ischemia, severe cardiomyopathy Presented with hypoxia, shortness of breath, leading to respiratory failure elevated troponins 0.092-1.210-1.150 Echo: 07/14/2018 1.Normal LV size with severely reduced systolic function: EF 20-25% global akinesis 2. Normal right ventricular size with severely reduced systolic function. The basal portion of the right ventricle free wall appears to be normally contracted, but otherwise right ventricle appears severely hypokinetic to akinetic 3. Small pericardial effusion, along the right ventricular free wall . No echocardiographic evidence of tamponade physiology. Unknown baseline type II non-ST elevated ME/demand ischemia in the setting of respiratory failure/ hypoxia Was on dobutamine gtt for severe cardiomyopathy/biventricular heart failure Weaned off -- continue Metoprolol tartrate 25mg po BID (4) Acute systolic CHF (congestive heart failure), NYHA class 2: severe ischemic cardiomyopathy with EF of 20-25%, with global hypokinesis with biventricular heart failure -- appears euvolemic continue Lasix 40mg po daily, Spironolactone 25mg po daily (5) COPD (chronic obstructive pulmonary disease): Baseline advanced COPD, recent admission few months back at [facility] [place] with COPD exacerbation Presented with hypoxia, respiratory failure, due to COPD exacerbation requiring mechanical ventilation, bronchoscopy continue Nebs, Prednisone daily (6) Discharge planning issues: DISPOSITION: Pt is a prisoner at [facility] Per [facility] patient will require transfer to [facility] as [facility] is not able to accommodate ventilator patients. appreciate input from Data Center Technician (7) Constipation: GoLYTELY given resolved Subjective ff up for acute respiratory failure resting in bed, comfortable transtioned to trach collar today denies dyspnea, pain tolerating PEG tube well no other symptoms Physical Exam Vital Signs (Past 24 Hours): Last Vital Signs Temp 36.7 C 07/29/18 20:00 Pulse 95 H 07/29/18 20:00 Resp 32 H 07/29/18 20:00 BP 109/65 07/29/18 20:00 Pulse Ox 93 07/29/18 20:00 Physical Exam: General- oriented x 3, not in distress, speaks in sentences with no effort or accessory muscle use Eyes- anicteric Neck- no JVD trach collar in place: on bleeding, discharge Lungs- clear breath sounds bilaterally mild rhonchi bilaterally Heart- normal rate, regular rhythm; no murmurs Abdomen- normal bowel sounds, nondistended, soft, nontender PEG tube in place: no discharge, signs of infection Extremities- no pretibial edema, no calf tenderness Neuro- alert, oriented x 3; no gross focal neurologic deficits Skin- warm & dry Results & Data Laboratory Results Laboratory Results - last 24 hr 07/28/18 07/29/18 07/29/18 23:42 03:59 03:59 WBC 15.44 H RBC 3.14 L Hgb 9.4 L Hct 28.7 L MCV 91.4 MCH 29.9 MCHC 32.8 RDW Std Deviation 49.8 H RDW Coeff of Leann 14.9 H Plt Count 189 MPV 10.0 Immature Gran % (Auto) 0.5 Neut % (Auto) 89.7 Lymph % (Auto) 4.3 [place] % (Auto) 5.2 Eos % (Auto) 0.3 Baso % (Auto) 0.0 Immature Gran # (Auto) 0.07 H Neut # (Auto) 13.87 H Lymph # (Auto) 0.66 L [place] # (Auto) 0.80 H Eos # (Auto) 0.04 Baso # (Auto) 0.00 Sodium 133 L Potassium 3.5 Chloride 92 L Carbon Dioxide 39 H Anion Gap 2.0 L BUN 17 Creatinine 0.38 L Est Cr Clr Drug Dosing 167.7 Est GFR ( Amer) 149.6 Est GFR (Non-Af Amer) 129.1 BUN/Creatinine Ratio 44.5 H Glucose 142 H POC Glucose 125 H Calcium 7.9 L Phosphorus 2.3 L Magnesium 2.0 07/29/18 06:32 WBC RBC Hgb Hct MCV MCH MCHC RDW Std Deviation RDW Coeff of Lenan Plt Count MPV Immature Gran % (Auto) Neut % (Auto) Lymph % (Auto) [place] % (Auto) Eos % (Auto) Baso % (Auto) Immature Gran # (Auto) Neut # (Auto) Lymph # (Auto) [place] # (Auto) Eos # (Auto) Baso # (Auto) Sodium Potassium Chloride Carbon Dioxide Anion Gap BUN Creatinine Est Cr Clr Drug Dosing Est GFR ( Amer) Est GFR (Non-Af Amer) BUN/Creatinine Ratio Glucose POC Glucose 123 H Calcium Phosphorus Magnesium (1) Pneumonia Laterality: bilateral Lung location: lower lobe of lung Pneumonia type: due to unspecified organism Qualified Code(s): J18.1 - Lobar pneumonia, unspecified organism (2) COPD (chronic obstructive pulmonary disease) COPD type: unspecified COPD Qualified Code(s): J44.9 - Chronic obstructive pulmonary disease, unspecified
[2018-07-30] MEDS: LEVALBUTEROL 1.25MG/0.5ML NEB INH SCH ×6 (04:27→23:06)
[2018-07-30] MEDS: IPRATROPIUM BROMIDE NEB SOLN 0.02% 2.5 ML VIAL NEB SCH ×6 (04:27→23:06)
[2018-07-30 04:53] LABS: Eosinophils # (auto) 0.11 K/uL (0-0.5); Eosinophils % (auto) 0.8 %; Hematocrit (blood only) 28.7 % (42-52); Hemoglobin 9.5 g/dL (14.0-18.0); Immature Granulocytes # (auto) 0.06 K/uL (0.00-0.02); Immature Granulocytes % (auto) 0.4 %; Lymphocytes % (auto) 6.6 %; Mean Corpuscular Hgb Conc 33.1 g/dL (32-36); Mean Platelet Volume 9.7 fL (7.4-10.4); Monocytes # (auto) 0.58 K/uL (0.11-0.59); Monocytes % (auto) 4.3 %; Neutrophils # (auto) 11.92 K/uL (1.4-6.5); Neutrophils % (auto) 87.9 %; Platelet Count 181 K/uL (130-400); RDW Coefficient of Variation 14.7 % (11.5-14.5); RDW Standard Deviation 49.3 fL (36.4-46.3); Red Blood Count 3.12 M/uL (4.7-6.1); White Blood Count 13.57 K/uL (4.8-10.8)
[2018-07-30 05:46] LABS: Anion Gap 0 (3-11); BUN Creatinine Ratio 59.5 (10-20); Blood Urea Nitrogen 20 mg/dl (7-18); Calcium 8.1 mg/dl (8.5-10.1); Carbon Dioxide 37 mmol/L (21-32); Chloride 96 mmol/L (98-107); Creatinine Clr Calc Pharmacy 191.2 ml/min; Est GFR (African American) > 150.0; Est GFR (Non-African American) 136.8; Glucose 114 mg/dl (70-99); Magnesium 1.9 mg/dl (1.8-2.4); Phosphorus 2.9 mg/dl (2.5-4.9); Potassium 4.3 mmol/L (3.5-5.1); Sodium 133 mmol/L (136-145)
[2018-07-30] MEDS: MULTI VIT W/MINERALS LIQUID 15 ML UDP PO SCH (08:32)
[2018-07-30] MEDS: MEGESTROL ACETATE 800 MG/20 ML UDP PO SCH (08:32)
[2018-07-30] MEDS: ZINC SULFATE 220 MG CAPSULE PO SCH (08:33)
[2018-07-30] MEDS: predniSONE 10 MG TABLET PO SCH (08:33)
[2018-07-30] MEDS: FUROSEMIDE 40 MG TAB PO SCH (08:34)
[2018-07-30] MEDS: METOPROLOL TARTRATE 50 MG TAB PO SCH ×2 (08:34→20:30)
[2018-07-30] MEDS: ASPIRIN 81 MG CHEW NG SCH (08:34)
[2018-07-30] MEDS: SPIRONOLACTONE 25 MG TAB PO SCH (08:34)
[2018-07-30] MEDS: POT PHOSPHATE MONOBASIC W/ SOD TAB PO SCH (08:34)
[2018-07-30] MEDS: DOCUSATE SODIUM SYRUP 100 MG/10 ML UDC PO SCH ×2 (08:35→20:30)
[2018-07-30] MEDS: AMOXICILLIN/CLAVULANATE SUSP 400MG/5ML 50ML BOTTLE NG SCH ×3 (08:37→17:10)
[2018-07-30] MEDS: FAMOTIDINE 20 MG TAB PO SCH ×2 (10:14→20:30)
[2018-07-30] MEDS: SULFAMETHOXAZOLE/TRIMETHOPRIM DS 800/160MG TAB PO SCH ×2 (10:15→20:30)
--- NOTE | 2018-07-30 10:43 | Critical Care Progress Note ---
Date of Service July 30, 2018 Assessment & Plan (1) Admitted to intensive care unit: The patient seems to be doing better on trach collar with 40% FiO2 with mask. Also he tolerated the trach change to size 6 cuff less nonfenestrated trach. He is able to phonate his voice so we are going to try the Passy-Halbur valve again and a speech to evaluate for the swallowing as well. His sputum is growing gram-negative and gram-positive bacteria. Currently he is on Augmentin and we also going to add Bactrim to cover ventilator associated pneumonia. We also going to continue with the inhalers as prescribed. His COPD seems to be stable. The patient is very much malnourished and we also optimizing his nutrition. We have also started physical therapy and he will be out of bed to chair and also ambulation as tolerated. The patient was also started on Megace 800 mg daily for his nutrition and seems to be tolerating it well. He has been also getting diuretics for his biventricular heart failure and he is also on metoprolol and seems to be tolerating it well. Currently he is also waiting for the [facility]. We are going to continue with all other management as prescribed. I will spent greater than 35 minutes of critical care time. (2) Protein calorie malnutrition: (3) Dysphagia: (4) Acute systolic CHF (congestive heart failure), NYHA class 2: (5) Non-ST elevated myocardial infarction (non-STEMI): (6) COPD (chronic obstructive pulmonary disease): (7) Respiratory failure: (8) Pneumonia: (9) COPD exacerbation: (10) Respiratory acidosis: Subjective The patient was seen and examined. The patient was started on trach collar yesterday morning and he seems to be doing much better. Also we had changed his trach to size 6 cuff less nonfenestrated and he seems to be doing better. Speech was consulted yesterday and we tried the Passy-Marilyn wall but he was not phonating at all. As compared to that he seems to be phonating well today but he still has got lots of secretions and he is able to cough it out.62-year-old male with end-stage COPD exacerbation with pneumonia requiring long-term ventilation via tracheostomy with plan to transfer to nursing facility. Received PEG tube two days ago. Patient hemodynamically stable, remaining in ICU for ventilatory support. Tolerating trach collar trials, trach changed to cuffless non fenestrated size 6 yesterday.. Physical Exam Vital Signs (Past 24 Hours): Last Vital Signs Temp 36.7 C 07/30/18 08:00 Pulse 107 H 07/30/18 08:00 Resp 24 07/30/18 08:00 BP 114/70 07/30/18 08:00 Pulse Ox 91 07/30/18 08:00 Physical Exam: Constitutional: WD/WN, vitals as above + frail appearing, comfortable and remains stable on trach collar. Oxygenating well into low to mid 90s on 40% oxygen. Eyes: PERRL, conjunctivae normal, anicteric sclerae Neck: trachea midline, no lesion no bleeding no infection seen. Respiratory: Bilaterally coarse breathing with crackles bilaterally and some scattered rhonchi. Cardiovascular: RRR, no murmur, no edema Heart Sounds: normal S1 and normal S2 Gastrointestinal (Abdomen): normal bowel sounds, soft, nontender, no hepatosplenomegaly. PEG site looks clean and not infected. Skin: no rashes, warm and dry Neurologic: PERRL, EOMI, accommodation nl, no face palsy, no dysarthria. The patient is moving all his extremities and he was able to be out of bed to chair. Genitourinary: Adequate urine output, urine clear Results & Data Laboratory Results Abnormal lab results 07/30/18 07/30/18 Range/Units 04:23 04:23 WBC 13.57 H (4.8-10.8) K/uL RBC 3.12 L (4.7-6.1) M/uL Hgb 9.5 L (14.0-18.0) g/dL Hct 28.7 L (42-52) % RDW Std Deviation 49.3 H (36.4-46.3) fL RDW Coeff of Leann 14.7 H (11.5-14.5) % Immature Gran # (Auto) 0.06 H (0.00-0.02) K/uL Neut # (Auto) 11.92 H (1.4-6.5) K/uL Lymph # (Auto) 0.90 L (1.2-3.4) K/uL Sodium 133 L (136-145) mmol/L Chloride 96 L (98-107) mmol/L Carbon Dioxide 37 H (21-32) mmol/L Anion Gap 0 L (3-11) BUN 20 H (7-18) mg/dl Creatinine 0.33 L (0.6-1.4) mg/dl BUN/Creatinine Ratio 59.5 H (10-20) Glucose 114 H (70-99) mg/dl Calcium 8.1 L (8.5-10.1) mg/dl Diagnostic Findings XR chest 1V portable CLINICAL HISTORY: intubation tube position COMPARISON STUDY: 07/28/2017 FINDINGS: Tracheostomy tube in good position. Central catheters in the superior vena cava. Unchanging parenchymal infiltrate left base. Emphysematous changes stable. IMPRESSION: Tracheostomy tube and central catheter are in good position. No change overall compared to the prior study. Electronically signed by: Joo Agosto M.D. 07/29/2018 6:54 AM Medications Administered Current Inpatient Medications Acetaminophen (Tylenol) 650 mg PO Q6H PRN PRN Reason: Fever Stop: 08/24/18 04:15 Last Admin: 07/29/18 20:25 Dose: 650 mg Documented by: Amoxicillin/Clavulanate Potassium (Augmentin Susp) 500 mg NG TIDM [facility] Stop: 08/01/18 16:59 Last Admin: 07/30/18 08:37 Dose: 500 mg Documented by: Aspirin (Aspirin Chew) 81 mg NG DAILY [facility] Stop: 08/14/18 11:44 Last Admin: 07/30/18 08:34 Dose: 81 mg Documented by: Dextrose (Dextrose 50%) 25 - 50 ml IV UD PRN; Protocol PRN Reason: Hypoglycemia Protocol Stop: 08/13/18 10:58 Docusate Sodium (Colace) 100 mg PO BID [facility] Stop: 08/19/18 10:44 Last Admin: 07/30/18 08:35 Dose: Not Given Documented by: Enoxaparin Sodium (Lovenox) 40 mg SQ Q24H [facility] Stop: 08/13/18 11:59 Last Admin: 07/29/18 14:12 Dose: 40 mg Documented by: Enteral Nutritional Formula (Impact 1.0 Galo) 1,000 ml PEG UD [facility]; Protocol Stop: 08/27/18 09:20 Last Admin: 07/29/18 21:55 Dose: 1,000 ml Documented by: Famotidine (Pepcid) 20 mg PO BID [facility] Stop: 08/22/18 09:14 Last Admin: 07/30/18 10:14 Dose: 20 mg Documented by: Furosemide (Lasix) 40 mg PO DAILY [facility] Stop: 08/21/18 08:59 Last Admin: 07/30/18 08:34 Dose: 40 mg Documented by: Glucagon (Glucagen) 1 mg SQ UD PRN; Protocol PRN Reason: Hypoglycemia Protocol Stop: 08/13/18 10:58 Glucose (Glucose 40%) 15 - 30 gm PO UD PRN; Protocol PRN Reason: Hypoglycemia Protocol Stop: 08/13/18 10:58 Glucose (Dex4 Glucose) 4 - 8 tabs PO UD PRN; Protocol PRN Reason: Hypoglycemia Protocol Stop: 08/13/18 10:58 Heparin Sodium (Beef Lung) (Heparin Sod 10 Unit/Ml Flush) 5 ml FLUSH PRN PRN PRN Reason: Flush Stop: 08/22/18 11:58 Testosterone Cypionate 100 mg/ (Syringe) 0.5 mls @ 0 mls/hr IM Fr@1200 [facility] Stop: 08/23/18 11:59 Last Admin: 07/24/18 11:42 Dose: 1 mls/hr Documented by: Ipratropium Riddle (Atrovent 0.02% 0.5mg/2.5ml) 0.5 mg NEB Q4R [facility] Stop: 08/13/18 11:59 Last Admin: 07/30/18 07:21 Dose: 0.5 mg Documented by: Levalbuterol HCl (Xopenex 1.25mg/0.5ml Neb) 1.25 mg INH Q4R [facility] Stop: 08/16/18 15:59 Last Admin: 07/30/18 07:21 Dose: 1.25 mg Documented by: Magnesium Citrate (Citrate) 148 - 296 ml PO DAILY PRN PRN Reason: Constipation Stop: 08/23/18 14:41 Megestrol Acetate (Megace) 800 mg PO DAILY [facility] Stop: 08/24/18 08:59 Last Admin: 07/30/18 08:32 Dose: 800 mg Documented by: Metoprolol Tartrate (Lopressor) 50 mg PO BID [facility] Stop: 08/25/18 08:59 Last Admin: 07/30/18 08:34 Dose: 50 mg Documented by: Metoprolol Tartrate (Lopressor) 2.5 mg IV Q2H PRN PRN Reason: Tachycardia Stop: 08/25/18 21:59 Last Admin: 07/27/18 16:29 Dose: 2.5 mg Documented by: Miscellaneous (Carbohydrates For Hypoglycemia) 15 - 30 gm PO UD PRN PRN Reason: Hypoglycemia Treatment Stop: 08/13/18 10:58 Multivitamins/Minerals (Cerovite Liquid) 15 ml PO DAILY [facility] Stop: 08/21/18 08:59 Last Admin: 07/30/18 08:32 Dose: 15 ml Documented by: Potassium Phosphate (Phospha 250 Neutral 155-852-130 Mg) 1 tab PO DAILY [facility] Stop: 08/23/18 08:59 Last Admin: 07/30/18 08:34 Dose: 1 tab Documented by: Prednisone (Prednisone) 5 mg PO DAILY [facility]; Taper Stop: 08/02/18 08:59 Last Admin: 07/30/18 08:33 Dose: 5 mg Documented by: Spironolactone (Aldactone) 25 mg PO DAILY [facility] Stop: 08/21/18 08:59 Last Admin: 07/30/18 08:34 Dose: 25 mg Documented by: Trimethoprim/Sulfamethoxazole (Septra Ds 800/160mg Tab) 1 tab PO BID [facility] Stop: 08/06/18 09:29 Last Admin: 07/30/18 10:15 Dose: 1 tab Documented by: Zinc Sulfate (Zinc Sulfate) 220 mg PO DAILY [facility] Stop: 08/21/18 09:14 Last Admin: 07/30/18 08:33 Dose: 220 mg Documented by: (1) COPD (chronic obstructive pulmonary disease) COPD type: unspecified COPD Qualified Code(s): J44.9 - Chronic obstructive pulmonary disease, unspecified (2) Respiratory failure Chronicity: acute on chronic Respiratory failure complication: hypoxia and hypercapnia Qualified Code(s): J96.21 - Acute and chronic respiratory failure with hypoxia; J96.22 - Acute and chronic respiratory failure with hypercapnia (3) Pneumonia Laterality: bilateral Lung location: lower lobe of lung Pneumonia type: due to unspecified organism Qualified Code(s): J18.1 - Lobar pneumonia, unspecified organism
[2018-07-30] MEDS: ENOXAPARIN INJ 40 MG/0.4 ML SYR SQ SCH (11:38)
[2018-07-30] MEDS: IMPACT LIQD 1.0 CAL 1,000 ML BAG PEG SCH (14:52)
--- NOTE | 2018-07-30 18:20 | Hospitalist Progress Note ---
Date of Service July 30, 2018 Delayed entry Date of service as noted above Assessment & Plan (1) Acute respiratory failure with hypoxia: per Dr Banegas notes: Presented with acute hypoxic respiratory failure due to combination of COPD exacerbation/severe ischemic cardiomyopathy biventricular heart failure with decompensated CHF Sent from correctional facility/chcf at [facility] with acute respiratory failure/hypoxia was lethargic/intubated Patient was intubated in ER for airway protection Prior history of advanced COPD: Gold stage III, Patient required long-term mechanical ventilation Status post bronchoscopy 07/14/2018 Showed thick secretions /bilateral mucous plugging, cleared with suction Treated empirically on cefuroxime Failed multiple weaning trial from ventilator Status post tracheostomy 07/21/2018 Continued on mechanical ventilation on CPAP Patient will be on chronic vent dependent-plan to tx pt to a facility with group home vent support /approved by [facility] referral made to [facility] Severe ischemic cardiomyopathy with EF 20%-noted in echo Patient continued with scheduled diuresis, volume status stable - transitioned to trach collar Continues to tolerate well Further management per intensive care team --s/p PEG tube placement -- tolerating well, no issues per RN (2) Pneumonia: Afebrile, leukocytosis trending down blood cultures negative urine culture negative Cefepime changed to Zosyn, completing Augmentin, Bactrim added Vancomycin discontinued Continue fluconazole afebrle, HD stable (3) Non-ST elevated myocardial infarction (non-STEMI): per Dr. Banegas notes: Type II NJ/non-ST elevated NJ: N/A setting of demand ischemia, severe cardiomyopathy Presented with hypoxia, shortness of breath, leading to respiratory failure elevated troponins 0.092-1.210-1.150 Echo: 07/14/2018 1.Normal LV size with severely reduced systolic function: EF 20-25% global akinesis 2. Normal right ventricular size with severely reduced systolic function. The basal portion of the right ventricle free wall appears to be normally contracted, but otherwise right ventricle appears severely hypokinetic to akinetic 3. Small pericardial effusion, along the right ventricular free wall . No echocardiographic evidence of tamponade physiology. Unknown baseline type II non-ST elevated NJ/demand ischemia in the setting of respiratory failur e/ hypoxia Was on dobutamine gtt for severe cardiomyopathy/biventricular heart failure Weaned off -- continue Metoprolol tartrate 25mg po BID (4) Acute systolic CHF (congestive heart failure), NYHA class 2: severe ischemic cardiomyopathy with EF of 20-25%, with global hypokinesis with biventricular heart failure -- appears euvolemic continue Lasix 40mg po daily, Spironolactone 25mg po daily (5) COPD (chronic obstructive pulmonary disease): Baseline advanced COPD, recent admission few months back at [facility] with COPD exacerbation Presented with hypoxia, respiratory failure, due to COPD exacerbation requiring mechanical ventilation, bronchoscopy continue Nebs, Prednisone daily (6) Discharge planning issues: DISPOSITION: Pt is a prisoner at [facility] Per [facility] patient will require transfer to [facility] as [facility] is not able to accommodate ventilator patients. appreciate input from Head Bookkeeper (7) Constipation: GoLYTELY given resolved Subjective ff up for acute respiratory faSitting up in bed, comfortable Denies shortness of breath, chest pain No abdominal pain, tolerating tube feeding well No other symptoms Physical Exam Vital Signs (Past 24 Hours): Last Vital Signs Temp 36.6 C 07/30/18 16:00 Pulse 92 H 07/30/18 16:00 Resp 24 07/30/18 16:00 BP 106/79 07/30/18 16:00 Pulse Ox 92 07/30/18 16:00 Physical Exam: General- oriented, not in distress, speaks in sentences with no effort or accessory muscle use Eyes- anicteric Neck- no JVD Lungs- Mild rhonchi bilaterally, no wheezing Heart- normal rate, regular rhythm; no murmurs Abdomen- normal bowel sounds, nondistended, soft, nontender PEG tube in place, no signs of infection Extremities- no pretibial edema, no calf tenderness Neuro- alert, oriented x 3; no gross focal neurologic deficits Skin- warm & dry Results & Data Laboratory Results Laboratory Results - last 24 hr 07/31/18 07/31/18 04:25 04:25 WBC 16.71 H RBC 3.07 L Hgb 9.4 L Hct 27.9 L MCV 90.9 MCH 30.6 MCHC 33.7 RDW Std Deviation 49.1 H RDW Coeff of Leann 14.8 H Plt Count 197 MPV 9.6 Immature Gran % (Auto) 0.5 Neut % (Auto) 88.8 Lymph % (Auto) 5.6 [place] % (Auto) 4.3 Eos % (Auto) 0.7 Baso % (Auto) 0.1 Immature Gran # (Auto) 0.08 H Neut # (Auto) 14.85 H Lymph # (Auto) 0.93 L [place] # (Auto) 0.72 H Eos # (Auto) 0.12 Baso # (Auto) 0.01 Sodium 132 L Potassium 4.3 Chloride 94 L Carbon Dioxide 37 H Anion Gap 1.0 L BUN 21 H Creatinine 0.39 L Est Cr Clr Drug Dosing 157.4 Est GFR ( Amer) 148.0 Est GFR (Non-Af Amer) 127.7 BUN/Creatinine Ratio 54.7 H Glucose 101 H Calcium 8.4 L Phosphorus 3.1 Magnesium 1.9 (1) COPD (chronic obstructive pulmonary disease) COPD type: unspecified COPD Qualified Code(s): J44.9 - Chronic obstructive pulmonary disease, unspecified (2) Pneumonia Laterality: bilateral Lung location: lower lobe of lung Pneumonia type: due to unspecified organism Qualified Code(s): J18.1 - Lobar pneumonia, unspecified organism
[2018-07-31] MEDS: IPRATROPIUM BROMIDE NEB SOLN 0.02% 2.5 ML VIAL NEB SCH ×6 (03:15→23:06)
[2018-07-31] MEDS: LEVALBUTEROL 1.25MG/0.5ML NEB INH SCH ×6 (03:15→23:06)
[2018-07-31 04:41] LABS: Basophils # (auto) 0.01 K/uL (0-0.2); Basophils % (auto) 0.1 %; Eosinophils # (auto) 0.12 K/uL (0-0.5); Eosinophils % (auto) 0.7 %; Hematocrit (blood only) 27.9 % (42-52); Hemoglobin 9.4 g/dL (14.0-18.0); Immature Granulocytes # (auto) 0.08 K/uL (0.00-0.02); Immature Granulocytes % (auto) 0.5 %; Lymphocytes # (auto) 0.93 K/uL (1.2-3.4); Lymphocytes % (auto) 5.6 %; Mean Corpuscular Hgb Conc 33.7 g/dL (32-36); Mean Corpuscular Volume 90.9 fL (80-100); Mean Platelet Volume 9.6 fL (7.4-10.4); Monocytes # (auto) 0.72 K/uL (0.11-0.59); Monocytes % (auto) 4.3 %; Neutrophils # (auto) 14.85 K/uL (1.4-6.5); Neutrophils % (auto) 88.8 %; Platelet Count 197 K/uL (130-400); RDW Coefficient of Variation 14.8 % (11.5-14.5); RDW Standard Deviation 49.1 fL (36.4-46.3); Red Blood Count 3.07 M/uL (4.7-6.1); White Blood Count 16.71 K/uL (4.8-10.8)
[2018-07-31 05:02] LABS: BUN Creatinine Ratio 54.7 (10-20); Calcium 8.4 mg/dl (8.5-10.1); Creatinine Clr Calc Pharmacy 157.4 ml/min; Est GFR (Non-African American) 127.7; Magnesium 1.9 mg/dl (1.8-2.4); Phosphorus 3.1 mg/dl (2.5-4.9); Potassium 4.3 mmol/L (3.5-5.1)
[2018-07-31] MEDS: IMPACT LIQD 1.0 CAL 1,000 ML BAG PEG SCH (05:06)
--- NOTE | 2018-07-31 08:54 | Critical Care Progress Note ---
Date of Service July 31, 2018 Assessment & Plan (1) Admitted to intensive care unit: (2) Protein calorie malnutrition: (3) Dysphagia: (4) Acute systolic CHF (congestive heart failure), NYHA class 2: (5) Non-ST elevated myocardial infarction (non-STEMI): (6) COPD (chronic obstructive pulmonary disease): PLAN: Neuro: Analgesia -Tylenol -Weaned from oxycodone Resp: Acute hypercarbic hypoxic respiratory failure Severe COPD/ pneumonia -Status post tracheostomy postop day 9, trach changed to cuffless -Post 48-hour alan for trach collar - Plan for bronchoscope be today and repeat BAL/culture Severe pulmonary hypertension: Resolved CV: Poor cardiac index: Resolved Biventricular heart failure -Metoprolol Fluids/Renal: Continue spironolactone Monitor daily BMPs, Maximize electrolytes ID: 7-day course of cefuroxime finished Left lower lobe pneumonia -Augmentin for total of 10-day effective therapy course to include days of cefepime GI/Nutrition: Tolerating tube feeds at goal via PEG tube Pepcid for GI prophylaxis severe protein calorie malnutrition - severe weakness - baseline testosterone level: 59.5 - 100mg testosterone IM weekly - Megace 800 mg daily - patient end stage COPD, with significant cachexia, androgens to hopefully improve function and quality of life in end-stage disease process. - aggressive nutritional support currently receiving 85 g protein which is approximately 1.5 mg/kg -2 mg/kg, 1 packet Prosource daily Heme: Anemia, stable, monitor DVT prophylaxis: Lovenox Endocrine: ICU hyperglycemia protocol Aggressive PT OT mobilization Skin: Decubiti over the presacral area. Follow-up wound Recs Vascular access: PICC line Code Status: DNR in event of cardiac arrest (7) Respiratory failure: (8) Pneumonia: (9) COPD exacerbation: (10) Respiratory acidosis: Supervising Physician Co-Signing Physician Notes I have seen and examined this patient with [PRANAV Angela] and agree with his assessment and plan of care. We are going to continue with current plan of care as prescribed. The patient seems to be stabilized on trach collar and is greater than 48 hours now. He is on 35% FiO2 and is oxygenating well around 92-93% and is also hemodynamically stable. We had done a bedside bronchoscopy on him for pulmonary toileting and he had lots of thick mucopurulent secretions which was suctioned and lavaged and sent for Gram stain culture and sensitivity, AFB, fungal, cytology. Overall he seems to be stable and we are going to continue with all other management as prescribed. Dr. Eduardo Winters. Subjective 62-year-old male presented [facility] with COPD exacerbation, requiring intubation, Trach and PEG. Patient this morning is outside 48 hours of trach collar, appears comfortable and doing well. Trach was downgraded to size 6 cuff less nonfenestrated 2 days ago. Patient is still having copious secretions, plan for bronchoscopy this afternoon and repeat BAL/culture. Patient is hemodynamically stable and should be ready for downgrade to telemetry this afternoon, pending bronchoscopy. Plan [facility]. Review of Systems All systems reviewed & are unremarkable except as noted in HPI & below Physical Exam Vital Signs (Past 24 Hours): Last Vital Signs Temp 36.8 C 07/31/18 08:01 Pulse 98 H 07/31/18 08:01 Resp 22 07/31/18 08:01 BP 103/63 07/31/18 08:01 Pulse Ox 94 07/31/18 08:01 Constitutional: WD/WN, vitals as above + frail appearing, comfortable and + mechanically ventilated Eyes: PERRL, conjunctivae normal, anicteric sclerae Neck: trachea midline Respiratory: normal respiratory effort Lungs coarse bilaterally in all lobesWith auscultation Cardiovascular: RRR, no murmur, no edema Heart Sounds: normal S1 and normal S2 Gastrointestinal (Abdomen): normal bowel sounds, soft, nontender, no hepato splenomegaly Skin: no rashes, warm and dry Neurologic: PERRL, EOMI, accommodation nl, no face palsy, no dysarthria Results & Data Laboratory Results Laboratory Results - last 24 hr 07/31/18 07/31/18 04:25 04:25 WBC 16.71 H RBC 3.07 L Hgb 9.4 L Hct 27.9 L MCV 90.9 MCH 30.6 MCHC 33.7 RDW Std Deviation 49.1 H RDW Coeff of Leann 14.8 H Plt Count 197 MPV 9.6 Immature Gran % (Auto) 0.5 Neut % (Auto) 88.8 Lymph % (Auto) 5.6 [place] % (Auto) 4.3 Eos % (Auto) 0.7 Baso % (Auto) 0.1 Immature Gran # (Auto) 0.08 H Neut # (Auto) 14.85 H Lymph # (Auto) 0.93 L [place] # (Auto) 0.72 H Eos # (Auto) 0.12 Baso # (Auto) 0.01 Sodium 132 L Potassium 4.3 Chloride 94 L Carbon Dioxide 37 H Anion Gap 1.0 L BUN 21 H Creatinine 0.39 L Est Cr Clr Drug Dosing 157.4 Est GFR ( Amer) 148.0 Est GFR (Non-Af Amer) 127.7 BUN/Creatinine Ratio 54.7 H Glucose 101 H Calcium 8.4 L Phosphorus 3.1 Magnesium 1.9 Medications Administered Home Medications fluticasone-salmeterol [Advair Diskus] 1 inh INHALATION BID 03/19/18 [History Confirmed 07/14/18] montelukast [Singulair] 10 mg PO QAM 03/19/18 [History Confirmed 07/14/18] spironolactone [Aldactone] 25 mg PO QAM 03/19/18 [History Confirmed 07/14/18] ipratropium-albuterol 3 ml INHALATION QID 7 Days #126 ml 03/26/18 [Rx Confirmed 07/14/18] guaifenesin 400 mg PO TID 07/14/18 [History Confirmed 07/14/18] levalbuterol tartrate [Xopenex HFA] 2 inh INHALATION TID PRN 07/14/18 [History Confirmed 07/14/18] prednisone 40 mg PO DAILY 07/14/18 [History Confirmed 07/14/18] tiotropium bromide [Spiriva with HandiHaler] 1 cap INHALATION DAILY 07/14/18 [History Confirmed 07/14/18] Active Medications Acetaminophen (Tylenol) 650 mg PO Q6H PRN PRN Reason: Fever Stop: 08/24/18 04:15 Last Admin: 07/29/18 20:25 Dose: 650 mg Documented by: Amoxicillin/Clavulanate Potassium (Augmentin Susp) 500 mg NG TIDM [facility] Stop: 08/01/18 16:59 Last Admin: 07/31/18 09:01 Dose: 500 mg Documented by: Aspirin (Aspirin Chew) 81 mg NG DAILY [facility] Stop: 08/14/18 11:44 Last Admin: 07/31/18 09:02 Dose: 81 mg Documented by: Dextrose (Dextrose 50%) 25 - 50 ml IV UD PRN; Protocol PRN Reason: Hypoglycemia Protocol Stop: 08/13/18 10:58 Docusate Sodium (Colace) 100 mg PO BID [facility] Stop: 08/19/18 10:44 Last Admin: 07/31/18 09:03 Dose: Not Given Documented by: Enoxaparin Sodium (Lovenox) 40 mg SQ Q24H [facility] Stop: 08/13/18 11:59 Last Admin: 07/30/18 11:38 Dose: 40 mg Documented by: Enteral Nutritional Formula (Impact 1.0 Galo) 1,000 ml PEG UD SIENNA; Protocol Stop: 08/27/18 09:20 Last Admin: 07/31/18 05:06 Dose: 1,000 ml Documented by: Famotidine (Pepcid) 20 mg PO BID [facility] Stop: 08/22/18 09:14 Last Admin: 07/31/18 09:01 Dose: 20 mg Documented by: Furosemide (Lasix) 40 mg PO DAILY [facility] Stop: 08/21/18 08:59 Last Admin: 07/31/18 09:01 Dose: 40 mg Documented by: Glucagon (Glucagen) 1 mg SQ UD PRN; Protocol PRN Reason: Hypoglycemia Protocol Stop: 08/13/18 10:58 Glucose (Glucose 40%) 15 - 30 gm PO UD PRN; Protocol PRN Reason: Hypoglycemia Protocol Stop: 08/13/18 10:58 Glucose (Dex4 Glucose) 4 - 8 tabs PO UD PRN; Protocol PRN Reason: Hypoglycemia Protocol Stop: 08/13/18 10:58 Heparin Sodium (Beef Lung) (Heparin Sod 10 Unit/Ml Flush) 5 ml FLUSH PRN PRN PRN Reason: Flush Stop: 08/22/18 11:58 Testosterone Cypionate 100 mg/ (Syringe) 0.5 mls @ 0 mls/hr IM Fr@1200 [facility] Stop: 08/23/18 11:59 Last Admin: 07/24/18 11:42 Dose: 1 mls/hr Documented by: Ipratropium Kinsley (Atrovent 0.02% 0.5mg/2.5ml) 0.5 mg NEB Q4R [facility] Stop: 08/13/18 11:59 Last Admin: 07/31/18 07:22 Dose: 0.5 mg Documented by: Levalbuterol HCl (Xopenex 1.25mg/0.5ml Neb) 1.25 mg INH Q4R [facility] Stop: 08/16/18 15:59 Last Admin: 07/31/18 07:22 Dose: 1.25 mg Documented by: Magnesium Citrate (Citrate) 148 - 296 ml PO DAILY PRN PRN Reason: Constipation Stop: 08/23/18 14:41 Megestrol Acetate (Megace) 800 mg PO DAILY [facility] Stop: 08/24/18 08:59 Last Admin: 07/31/18 09:01 Dose: 800 mg Documented by: Metoprolol Tartrate (Lopressor) 50 mg PO BID [facility] Stop: 08/25/18 08:59 Last Admin: 07/31/18 09:01 Dose: 50 mg Documented by: Metoprolol Tartrate (Lopressor) 2.5 mg IV Q2H PRN PRN Reason: Tachycardia Stop: 08/25/18 21:59 Last Admin: 07/27/18 16:29 Dose: 2.5 mg Documented by: Miscellaneous (Carbohydrates For Hypoglycemia) 15 - 30 gm PO UD PRN PRN Reason: Hypoglycemia Treatment Stop: 08/13/18 10:58 Multivitamins/Minerals (Cerovite Liquid) 15 ml PO DAILY [facility] Stop: 08/21/18 08:59 Last Admin: 07/31/18 09:01 Dose: 15 ml Documented by: Potassium Phosphate (Phospha 250 Neutral 155-852-130 Mg) 1 tab PO DAILY [facility] Stop: 08/23/18 08:59 Last Admin: 07/31/18 09:02 Dose: 1 tab Documented by: Prednisone (Prednisone) 5 mg PO DAILY [facility]; Taper Stop: 08/02/18 08:59 Last Admin: 07/31/18 09:02 Dose: 5 mg Documented by: Spironolactone (Aldactone) 25 mg PO DAILY [facility] Stop: 08/21/18 08:59 Last Admin: 07/31/18 09:02 Dose: 25 mg Documented by: Trimethoprim/Sulfamethoxazole (Septra Ds 800/160mg Tab) 1 tab PO BID [facility] Stop: 08/06/18 09:29 Last Admin: 07/31/18 09:01 Dose: 1 tab Documented by: Zinc Sulfate (Zinc Sulfate) 220 mg PO DAILY [facility] Stop: 08/21/18 09:14 Last Admin: 07/31/18 09:02 Dose: 220 mg Documented by: (1) Respiratory failure Chronicity: acute on chronic Respiratory failure complication: hypoxia and hypercapnia Qualified Code(s): J96.21 - Acute and chronic respiratory failure with hypoxia; J96.22 - Acute and chronic respiratory failure with hypercapnia (2) COPD (chronic obstructive pulmonary disease) COPD type: unspecified COPD Qualified Code(s): J44.9 - Chronic obstructive pulmonary disease, unspecified (3) Pneumonia Laterality: bilateral Lung location: lower lobe of lung Pneumonia type: due to unspecified organism Qualified Code(s): J18.1 - Lobar pneumonia, unspecified organism
[2018-07-31] MEDS: MEGESTROL ACETATE 800 MG/20 ML UDP PO SCH (09:01)
[2018-07-31] MEDS: AMOXICILLIN/CLAVULANATE SUSP 400MG/5ML 50ML BOTTLE NG SCH ×3 (09:01→18:01)
[2018-07-31] MEDS: FAMOTIDINE 20 MG TAB PO SCH ×2 (09:01→20:34)
[2018-07-31] MEDS: METOPROLOL TARTRATE 50 MG TAB PO SCH ×2 (09:01→20:34)
[2018-07-31] MEDS: MULTI VIT W/MINERALS LIQUID 15 ML UDP PO SCH (09:01)
[2018-07-31] MEDS: SULFAMETHOXAZOLE/TRIMETHOPRIM DS 800/160MG TAB PO SCH ×2 (09:01→20:34)
[2018-07-31] MEDS: FUROSEMIDE 40 MG TAB PO SCH (09:01)
[2018-07-31] MEDS: ZINC SULFATE 220 MG CAPSULE PO SCH (09:02)
[2018-07-31] MEDS: ASPIRIN 81 MG CHEW NG SCH (09:02)
[2018-07-31] MEDS: SPIRONOLACTONE 25 MG TAB PO SCH (09:02)
[2018-07-31] MEDS: POT PHOSPHATE MONOBASIC W/ SOD TAB PO SCH (09:02)
[2018-07-31] MEDS: predniSONE 10 MG TABLET PO SCH (09:02)
[2018-07-31] MEDS: DOCUSATE SODIUM SYRUP 100 MG/10 ML UDC PO SCH ×2 (09:03→20:34)
--- NOTE | 2018-07-31 09:19 | Hospitalist Progress Note ---
Date of Service July 31, 2018 Assessment & Plan (1) Acute respiratory failure with hypoxia: per Dr Banegas notes: Presented with acute hypoxic respiratory failure due to combination of COPD exacerbation/severe ischemic cardiomyopathy biventricular heart failure with decompensated CHF [facility] from [facility]/shelter at [facility] with acute respiratory failure/hypoxia was lethargic/intubated Patient was intubated in ER for airway protection Prior history of advanced COPD: Gold stage III, Patient required long-term mechanical ventilation Status post bronchoscopy 07/14/2018 Showed thick secretions /bilateral mucous plugging, cleared with suction Treated empirically on cefuroxime Failed multiple weaning trial from ventilator Status post tracheostomy 07/21/2018 Continued on mechanical ventilation on CPAP Patient will be on chronic vent dependent-plan to tx pt to a facility with paper deliverer vent support /approved by [facility] referral made to [facility] Severe ischemic cardiomyopathy with EF 20%-noted in echo Patient continued with scheduled diuresis, volume status stable - transitioned to trach collar For repeat bronchoscopy today Further management per intensive care team --s/p PEG tube placement -- tolerating well, no issues per RN (2) Pneumonia: Afebrile, leukocytosis trending down blood cultures negative urine culture negative Cefepime changed to Zosyn, completing Augmentin Vancomycin discontinued Continue fluconazole afebrle, HD stable (3) Non-ST elevated myocardial infarction (non-STEMI): per Dr. Banegas notes: Type II VA/non-ST elevated VA: N/A setting of demand ischemia, severe cardiomyopathy Presented with hypoxia, shortness of breath, leading to respiratory failure elevated troponins 0.092-1.210-1.150 Echo: 07/14/2018 1.Normal LV size with severely reduced systolic function: EF 20-25% global akinesis 2. Normal right ventricular size with severely reduced systolic function. The basal portion of the right ventricle free wall appears to be normally contracted, but otherwise right ventricle appears severely hypokinetic to akinetic 3. Small pericardial effusion, along the right ventricular free wall . No echocardiographic evidence of tamponade physiology. Unknown baseline type II non-ST elevated VA/demand ischemia in the setting of respiratory failure/ hypoxia Was on dobutamine gtt for severe cardiomyopathy/biventricular heart failure Weaned off -- continue Metoprolol tartrate 25mg po BID (4) Acute systolic CHF (congestive heart failure), NYHA class 2: severe ischemic cardiomyopathy with EF of 20-25%, with global hypokinesis with biventricular heart failure -- appears euvolemic continue Lasix 40mg po daily, Spironolactone 25mg po daily (5) COPD (chronic obstructive pulmonary disease): Baseline advanced COPD, recent admission few months back at [facility] with COPD exacerbation Presented with hypoxia, respiratory failure, due to COPD exacerbation requiring mechanical ventilation, bronchoscopy continue Nebs, Prednisone daily (6) Discharge planning issues: DISPOSITION: Pt is a prisoner at [facility] Per [facility] patient will require transfer to [facility] appreciate input from [employer] (7) Constipation: GoLYTELY given resolved Subjective ff up for acute respiratory failure resting in bed, comfortable transtioned to trach collar today denies dyspnea, pain tolerating PEG tube well no other symptoms Physical Exam Vital Signs (Past 24 Hours): Last Vital Signs Temp 36.8 C 07/31/18 08:01 Pulse 98 H 07/31/18 08:01 Resp 22 07/31/18 08:01 BP 103/63 07/31/18 08:01 Pulse Ox 94 07/31/18 08:01 Physical Exam: General- oriented x 3, not in distress, speaks in sentences with no effort or accessory muscle use Eyes- anicteric Neck- no JVD Lungs- Mild rhonchi bilaterally, no wheezing Heart- normal rate, regular rhythm; no murmurs Abdomen- normal bowel sounds, nondistended, soft, nontender PEG tube in place: No signs of infection, no discharge Extremities- no pretibial edema, no calf tenderness Neuro- alert, oriented x 3; no gross focal neurologic deficits Skin- warm & dry Results & Data Laboratory Results Laboratory Results - last 24 hr 07/31/18 07/31/18 04:25 04:25 WBC 16.71 H RBC 3.07 L Hgb 9.4 L Hct 27.9 L MCV 90.9 MCH 30.6 MCHC 33.7 RDW Std Deviation 49.1 H RDW Coeff of Elann 14.8 H Plt Count 197 MPV 9.6 Immature Gran % (Auto) 0.5 Neut % (Auto) 88.8 Lymph % (Auto) 5.6 [place] % (Auto) 4.3 Eos % (Auto) 0.7 Baso % (Auto) 0.1 Immature Gran # (Auto) 0.08 H Neut # (Auto) 14.85 H Lymph # (Auto) 0.93 L [place] # (Auto) 0.72 H Eos # (Auto) 0.12 Baso # (Auto) 0.01 Sodium 132 L Potassium 4.3 Chloride 94 L Carbon Dioxide 37 H Anion Gap 1.0 L BUN 21 H Creatinine 0.39 L Est Cr Clr Drug Dosing 157.4 Est GFR ( Amer) 148.0 Est GFR (Non-Af Amer) 127.7 BUN/Creatinine Ratio 54.7 H Glucose 101 H Calcium 8.4 L Phosphorus 3.1 Magnesium 1.9 (1) COPD (chronic obstructive pulmonary disease) COPD type: unspecified COPD Qualified Code(s): J44.9 - Chronic obstructive pulmonary disease, unspecified (2) Pneumonia Laterality: bilateral Lung location: lower lobe of lung Pneumonia type: due to unspecified organism Qualified Code(s): J18.1 - Lobar pneumonia, unspecified organism
[2018-07-31] MEDS: TESTOSTERONE CYPIONATE IM SCH (12:02)
[2018-07-31] MEDS ORDERED: SODIUM CHLORIDE 0.9% 1000ML 250 ML IV ONE (14:39)
[2018-07-31] MEDS: ENOXAPARIN INJ 40 MG/0.4 ML SYR SQ SCH (14:43)
--- NOTE | 2018-07-31 15:22 | Procedure Note ---
Procedure Note Date of Service July 31, 2018 NAME OF THE PROCEDURE: Bronchoscopy. INDICATION OF THE PROCEDURE: Pulmonary toileting. LOCATION OF THE PROCEDURE: By the bedside. INFORMED CONSENT: The patient was informed about the condition. He was also informed about the indication, contraindication, complication and alternatives of the procedure and he gave us informed consent and wishes to proceed. DESCRIPTION OF THE PROCEDURE: The patient has an Angiocath which was kept open with normal saline solution. The patient is in the ICU and continuously monitored on surveillance system monitor with ECG blood pressure oxygenation and breathing. The patient also has tracheostomy size 6. After this initial preparatory step the tip of the bronchoscope was passed through the tracheostomy tube into the mainstem trachea. Her trachea bilaterally was filled with thick mucopurulent secretions which was suctioned and lavaged. We thoroughly lavaged both the bronchial tubes right and left to the subsegmental levels and suction all the thick material which was mucopurulent. There was no lesion or mass seen anywhere in the bronchial tube. There was no bleeding in the bronchial tube. The patient maintained his vital signs and oxygenation throughout the procedure. He was awake and was not in any distress and we also did not use any medication for sedation because it was not required. The patient tolerated the procedure very well. There were no complications noted. The specimen was sent for microbiology culture and sensitivity, AFB, fungus and cytology. Final results are pending. Dictated by Dr. Winters.
[2018-08-01] MEDS: IPRATROPIUM BROMIDE NEB SOLN 0.02% 2.5 ML VIAL NEB SCH ×6 (03:32→22:29)
[2018-08-01] MEDS: LEVALBUTEROL 1.25MG/0.5ML NEB INH SCH ×6 (03:32→22:30)
[2018-08-01 04:39] LABS: Hematocrit (blood only) 27.7 % (42-52); Hemoglobin 9.1 g/dL (14.0-18.0); Mean Corpuscular Hgb Conc 32.9 g/dL (32-36); Mean Corpuscular Volume 90.5 fL (80-100); Mean Platelet Volume 9.8 fL (7.4-10.4); Platelet Count 235 K/uL (130-400); RDW Coefficient of Variation 15.1 % (11.5-14.5); RDW Standard Deviation 48.9 fL (36.4-46.3); Red Blood Count 3.06 M/uL (4.7-6.1); White Blood Count 14.41 K/uL (4.8-10.8)
[2018-08-01 04:56] LABS: BUN Creatinine Ratio 59.6 (10-20); Blood Urea Nitrogen 22 mg/dl (7-18); Calcium 8.3 mg/dl (8.5-10.1); Carbon Dioxide 36 mmol/L (21-32); Chloride 93 mmol/L (98-107); Creatinine Clr Calc Pharmacy 168.8 ml/min; Est GFR (African American) > 150.0; Est GFR (Non-African American) 130.5; Glucose 90 mg/dl (70-99); Magnesium 1.8 mg/dl (1.8-2.4); Phosphorus 3.4 mg/dl (2.5-4.9); Potassium 4.1 mmol/L (3.5-5.1); Sodium 132 mmol/L (136-145)
[2018-08-01] MEDS: MEGESTROL ACETATE 800 MG/20 ML UDP PO SCH (08:12)
[2018-08-01] MEDS: SULFAMETHOXAZOLE/TRIMETHOPRIM DS 800/160MG TAB PO SCH (08:12)
[2018-08-01] MEDS: FAMOTIDINE 20 MG TAB PO SCH ×2 (08:12→20:50)
[2018-08-01] MEDS: predniSONE 10 MG TABLET PO SCH (08:12)
[2018-08-01] MEDS: METOPROLOL TARTRATE 50 MG TAB PO SCH ×2 (08:12→20:46)
[2018-08-01] MEDS: POT PHOSPHATE MONOBASIC W/ SOD TAB PO SCH (08:13)
[2018-08-01] MEDS: ZINC SULFATE 220 MG CAPSULE PO SCH (08:13)
[2018-08-01] MEDS: MULTI VIT W/MINERALS LIQUID 15 ML UDP PO SCH (08:13)
[2018-08-01] MEDS: FUROSEMIDE 40 MG TAB PO SCH (08:13)
[2018-08-01] MEDS: DOCUSATE SODIUM SYRUP 100 MG/10 ML UDC PO SCH ×3 (08:13→20:49)
[2018-08-01] MEDS: SPIRONOLACTONE 25 MG TAB PO SCH (08:13)
[2018-08-01] MEDS: ASPIRIN 81 MG CHEW NG SCH (08:14)
[2018-08-01] MEDS: AMOXICILLIN/CLAVULANATE SUSP 400MG/5ML 50ML BOTTLE NG SCH ×2 (08:15→13:37)
--- NOTE | 2018-08-01 09:46 | Critical Care Progress Note ---
Date of Service August 01, 2018 Assessment & Plan (1) Admitted to intensive care unit: The patient remains on trach collar. He has been breathing comfortably on 30% trach mask. He still has secretions but that seems to be improving. If he continues to have thick mucopurulent secretions will consider doing a bronchoscopy. His trach is well secured. He is putting out good urine. Hemodynamically he is stable. His diet is also continued with tube feeding. Currently his sputum is growing Serratia marcescens but the sensitivity is still pending. Will discuss with the pharmacology and also look up the antibiogram and start an appropriate antibiotic therapy. In the meantime he has good trach he is on a trach collar will continue with all other management as prescribed. We are still waiting for his placement. I have spent greater than 35 minutes of noncritical time. (2) Protein calorie malnutrition: (3) Dysphagia: (4) Biventricular heart failure: (5) Non-ST elevated myocardial infarction (non-STEMI): (6) Pneumonia: (7) COPD exacerbation: (8) Acute respiratory failure with hypoxia: Subjective The patient is resting comfortably in the bed and not any acute distress. He is breathing comfortably and currently is on 30% FiO2 and oxygenating around 92-93% on trach collar. He is still bringing up some secretions which is diminished from yesterday. The patient also had bronchoscopy done and lavage for pulmonary toileting yesterday. Also the trach had come out which was replaced back without any difficulty yesterday. He is hemodynamically stable and overall seems to be doing better. The patient denies having any chest pain or palpitations or headache or dizziness or syncopal episode. Also denies having any shortness of breath. Also denies having any abdominal pain nausea vomiting. Also denies having any blood in his stool urine or painful micturition. Overall he seems to be comfortable and not in any acute distress. Physical Exam Vital Signs (Past 24 Hours): Last Vital Signs Temp 36.6 C 08/01/18 08:00 Pulse 81 08/01/18 09:00 Resp 15 08/01/18 09:00 BP 96/63 L 08/01/18 09:00 Pulse Ox 92 08/01/18 09:00 Physical Exam: CONSTITUTIONAL: WD/WN, vitals as above + frail appearing, comfortable and + mechanically ventilated EYES: PERRL, conjunctivae normal, anicteric sclerae NECK: trachea midline RESPIRATORY: normal respiratory effort Lungs coarse bilaterally in all lobesWith auscultation CARDIOVASCULAR: RRR, no murmur, no edema Heart Sounds: normal S1 and normal S2 GASTROINTESTINAL (ABDOMEN): normal bowel sounds, soft, nontender, no hepatosplenomegaly SKIN: no rashes, warm and dry NEUROLOGIC: PERRL, EOMI, accommodation nl, no face palsy, no dysarthria Results & Data Laboratory Results Abnormal lab results 08/01/18 08/01/18 Range/Units 04:17 04:17 WBC 14.41 H (4.8-10.8) K/uL RBC 3.06 L (4.7-6.1) M/uL Hgb 9.1 L (14.0-18.0) g/dL Hct 27.7 L (42-52) % RDW Std Deviation 48.9 H (36.4-46.3) fL RDW Coeff of Leann 15.1 H (11.5-14.5) % Sodium 132 L (136-145) mmol/L Chloride 93 L (98-107) mmol/L Carbon Dioxide 36 H (21-32) mmol/L BUN 22 H (7-18) mg/dl Creatinine 0.37 L (0.6-1.4) mg/dl BUN/Creatinine Ratio 59.6 H (10-20) Calcium 8.3 L (8.5-10.1) mg/dl Medications Administered Current Inpatient Medications Acetaminophen (Tylenol) 650 mg PO Q6H PRN PRN Reason: Fever Stop: 08/24/18 04:15 Last Admin: 07/29/18 20:25 Dose: 650 mg Documented by: Amoxicillin/Clavulanate Potassium (Augmentin Susp) 500 mg NG TIDM SIENNA Stop: 08/01/18 16:59 Last Admin: 08/01/18 08:15 Dose: 500 mg Documented by: Aspirin (Aspirin Chew) 81 mg NG DAILY SIENNA Stop: 08/14/18 11:44 Last Admin: 08/01/18 08:14 Dose: 81 mg Documented by: Dextrose (Dextrose 50%) 25 - 50 ml IV UD PRN; Protocol PRN Reason: Hypoglycemia Protocol Stop: 08/13/18 10:58 Docusate Sodium (Colace) 100 mg PO BID SIENNA Stop: 08/19/18 10:44 Last Admin: 08/01/18 08:39 Dose: Not Given Documented by: Enoxaparin Sodium (Lovenox) 40 mg SQ Q24H [facility] Stop: 08/13/18 11:59 Last Admin: 07/31/18 14:43 Dose: Not Given Documented by: Enteral Nutritional Formula (Impact 1.0 Galo) 1,000 ml PEG UD [facility]; Protocol Stop: 08/27/18 09:20 Last Admin: 07/31/18 05:06 Dose: 1,000 ml Documented by: Famotidine (Pepcid) 20 mg PO BID [facility] Stop: 08/22/18 09:14 Last Admin: 08/01/18 08:12 Dose: 20 mg Documented by: Furosemide (Lasix) 40 mg PO DAILY [facility] Stop: 08/21/18 08:59 Last Admin: 08/01/18 08:13 Dose: 40 mg Documented by: Glucagon (Glucagen) 1 mg SQ UD PRN; Protocol PRN Reason: Hypoglycemia Protocol Stop: 08/13/18 10:58 Glucose (Glucose 40%) 15 - 30 gm PO UD PRN; Protocol PRN Reason: Hypoglycemia Protocol Stop: 08/13/18 10:58 Glucose (Dex4 Glucose) 4 - 8 tabs PO UD PRN; Protocol PRN Reason: Hypoglycemia Protocol Stop: 08/13/18 10:58 Heparin Sodium (Beef Lung) (Heparin Sod 10 Unit/Ml Flush) 5 ml FLUSH PRN PRN PRN Reason: Flush Stop: 08/22/18 11:58 Testosterone Cypionate 100 mg/ (Syringe) 0.5 mls @ 0 mls/hr IM Fr@1200 [facility] Stop: 08/23/18 11:59 Last Admin: 07/31/18 12:02 Dose: 0.5 mls/hr Documented by: Ipratropium [place] (Atrovent 0.02% 0.5mg/2.5ml) 0.5 mg NEB Q4R [facility] Stop: 08/13/18 11:59 Last Admin: 08/01/18 07:56 Dose: 0.5 mg Documented by: Levalbuterol HCl (Xopenex 1.25mg/0.5ml Neb) 1.25 mg INH Q4R [facility] Stop: 08/16/18 15:59 Last Admin: 08/01/18 07:57 Dose: 1.25 mg Documented by: Magnesium Citrate (Citrate) 148 - 296 ml PO DAILY PRN PRN Reason: Constipation Stop: 08/23/18 14:41 Megestrol Acetate (Megace) 800 mg PO DAILY [facility] Stop: 08/24/18 08:59 Last Admin: 08/01/18 08:12 Dose: 800 mg Documented by: Metoprolol Tartrate (Lopressor) 50 mg PO BID [facility] Stop: 08/25/18 08:59 Last Admin: 08/01/18 08:12 Dose: 50 mg Documented by: Metoprolol Tartrate (Lopressor) 2.5 mg IV Q2H PRN PRN Reason: Tachycardia Stop: 08/25/18 21:59 Last Admin: 07/27/18 16:29 Dose: 2.5 mg Documented by: Miscellaneous (Carbohydrates For Hypoglycemia) 15 - 30 gm PO UD PRN PRN Reason: Hypoglycemia Treatment Stop: 08/13/18 10:58 Multivitamins/Minerals (Cerovite Liquid) 15 ml PO DAILY [facility] Stop: 08/21/18 08:59 Last Admin: 08/01/18 08:13 Dose: 15 ml Documented by: Potassium Phosphate (Phospha 250 Neutral 155-852-130 Mg) 1 tab PO DAILY [facility] Stop: 08/23/18 08:59 Last Admin: 08/01/18 08:13 Dose: 1 tab Documented by: Prednisone (Prednisone) 5 mg PO DAILY [facility]; Taper Stop: 08/02/18 08:59 Last Admin: 08/01/18 08:12 Dose: 5 mg Documented by: Spironolactone (Aldactone) 25 mg PO DAILY [facility] Stop: 08/21/18 08:59 Last Admin: 08/01/18 08:13 Dose: 25 mg Documented by: Trimethoprim/Sulfamethoxazole (Septra Ds 800/160mg Tab) 1 tab PO BID [facility] Stop: 08/06/18 09:29 Last Admin: 08/01/18 08:12 Dose: 1 tab Documented by: Zinc Sulfate (Zinc Sulfate) 220 mg PO DAILY [facility] Stop: 08/21/18 09:14 Last Admin: 08/01/18 08:13 Dose: 220 mg Documented by: (1) Pneumonia Laterality: bilateral Lung location: lower lobe of lung Pneumonia type: due to unspecified organism Qualified Code(s): J18.1 - Lobar pneumonia, unspecified organism
[2018-08-01] MEDS: ENOXAPARIN INJ 40 MG/0.4 ML SYR SQ SCH (12:40)
--- NOTE | 2018-08-01 13:07 | Hospitalist Progress Note ---
Date of Service August 01, 2018 Assessment & Plan (1) Acute respiratory failure with hypoxia: Presented with acute hypoxic respiratory failure due to combination of COPD exacerbation/severe ischemic cardiomyopathy biventricular heart failure with decompensated CHF Sent from correctional facility/jail at [facility] with acute respiratory failure/hypoxia was lethargic/intubated Patient was intubated in ER for airway protection Prior history of advanced COPD: Gold stage III, Patient required long-term mechanical ventilation Status post multiple bronchoscopy 07/14/2018 and 07/31/2018 Showed thick secretions /bilateral mucous plugging, cleared with suction Failed multiple weaning trial from ventilator Status post tracheostomy 07/21/2018 Present on trach collar FiO2 30%, plan to transfer to [facility] on Friday if patient remains hemodynamically stable Severe ischemic cardiomyopathy with EF 20%-noted in echo Patient continued with scheduled diuresis, volume status stable - transitioned to trach collar --s/p PEG tube placement -- tolerating tube feeding (2) Pneumonia: Trach suction specimen 07/29/2018 culture growing Serratia Sensitivity available Sensitive to Rocephin, resistant to quinolone We will DC Augmentin, start with IV Rocephin Antibiotic will be changed to p.o. Keflex on discharge, total 10 days of course (3) Non-ST elevated myocardial infarction (non-STEMI): Type II CO/non-ST elevated CO: N/A setting of demand ischemia, severe cardiomyopathy Presented with hypoxia, shortness of breath, leading to respiratory failure elevated troponins 0.092-1.210-1.150 Echo: 07/14/2018 1.Normal LV size with severely reduced systolic function: EF 20-25% global akinesis 2. Normal right ventricular size with severely reduced systolic function. The basal portion of the right ventricle free wall appears to be normally contracted, but otherwise right ventricle appears severely hypokinetic to akinetic 3. Small pericardial effusion, along the right ventricular free wall . No echocardiographic evidence of tamponade physiology. Unknown baseline type II non-ST elevated CO/demand ischemia in the setting of respiratory failure/ hypoxia Was on dobutamine gtt for severe cardiomyopathy/biventricular heart failure Weaned off -- continue Metoprolol tartrate 25mg po BID (4) Acute systolic CHF (congestive heart failure), NYHA class 2: severe ischemic cardiomyopathy with EF of 20-25%, with global hypokinesis with biventricular heart failure -- appears euvolemic continue Lasix 40mg po daily, Spironolactone 25mg po daily Appreciate cardiology eval (5) COPD (chronic obstructive pulmonary disease): Baseline advanced COPD, recent admission few months back at [facility] with COPD exacerbation Presented with hypoxia, respiratory failure, due to COPD exacerbation requiring mechanical ventilation, bronchoscopy continue Nebs, Prednisone daily Respite status improved, on trach collar, (6) Discharge planning issues: CODE STATUS: DNR/DNI DVT prophylaxis: Subcu Lovenox DISPOSITION: Pt is a prisoner at [facility] Plan to transfer to [facility] on Friday, Will update present physician prior to discharge (7) Constipation: GoLYTELY given resolved Subjective Patient denies of any discomfort, no shortness of breath, effort by, vitals remained stable On trach collar FiO2 30% with oxygenation around 92-93%, stable to be transferred out of the intensive care unit Physical Exam Vital Signs (Past 24 Hours): Last Vital Signs Temp 36.6 C 08/01/18 08:00 Pulse 97 H 08/01/18 11:32 Resp 18 08/01/18 11:32 BP 96/63 L 08/01/18 09:00 Pulse Ox 90 08/01/18 11:32 Constitutional: no acute distress Eyes: + anicteric sclerae ENMT: Mouth: + dry oral mucous membranes Neck: Trach collar in place Respiratory: no cough Auscultation: + diminished lung sounds; no crackles and no rales Cardiovascular: Rate/Rhythm: regular rate and regular rhythm Vessels: no JVD Extremities: no pedal edema and no edema Gastrointestinal (Abdomen): Percussion/Palpation: abdomen soft; abdomen nontender Status post PEG tube placement Neurologic: moves all extremities and awake (1) COPD (chronic obstructive pulmonary disease) COPD type: unspecified COPD Qualified Code(s): J44.9 - Chronic obstructive pulmonary disease, unspecified (2) Pneumonia Laterality: bilateral Lung location: lower lobe of lung Pneumonia type: due to unspecified organism Qualified Code(s): J18.1 - Lobar pneumonia, unspecified organism
[2018-08-01] MEDS ORDERED: TIOTROPIUM BROMIDE 5 PUFF/90 MCG INH INH SCH (14:34)
[2018-08-01] MEDS ORDERED: LEVALBUTEROL TARTRATE 15 GM HFA.AER.AD INH PRN (14:34)
[2018-08-01] MEDS: cefTRIAXone SODIUM 1,000 MG in DEXTROSE 5% 50 ML IV SCH (16:20)
[2018-08-01] MEDS: MONTELUKAST SODIUM 10 MG TABLET PO SCH (16:27)
[2018-08-01] MEDS: guaiFENesin 200 MG TAB PO SCH ×2 (16:27→20:49)
[2018-08-01] MEDS ORDERED: ALBUT/IPRATROP 3MG/0.5MG NEB 3 ML VIAL INH SCH (17:00)
[2018-08-01] MEDS: IMPACT LIQD 1.0 CAL 1,000 ML BAG PEG SCH (20:34)
[2018-08-01] MEDS: FLUTICASONE/SALMETEROL (ADVAIR) 500/50 INH 14 PUFF INH SCH (20:48)
[2018-08-02] MEDS: LEVALBUTEROL 1.25MG/0.5ML NEB INH SCH ×6 (03:39→23:11)
[2018-08-02] MEDS: IPRATROPIUM BROMIDE NEB SOLN 0.02% 2.5 ML VIAL NEB SCH ×6 (03:39→23:11)
[2018-08-02] MEDS: FLUTICASONE/SALMETEROL (ADVAIR) 500/50 INH 14 PUFF INH SCH ×2 (09:51→19:13)
[2018-08-02] MEDS: SPIRONOLACTONE 25 MG TAB PO SCH (09:55)
[2018-08-02] MEDS: ASPIRIN 81 MG CHEW NG SCH (09:55)
[2018-08-02] MEDS: MULTI VIT W/MINERALS LIQUID 15 ML UDP PO SCH (09:55)
[2018-08-02] MEDS: FUROSEMIDE 40 MG TAB PO SCH (09:56)
[2018-08-02] MEDS: METOPROLOL TARTRATE 50 MG TAB PO SCH ×2 (09:57→21:21)
[2018-08-02] MEDS: MEGESTROL ACETATE 800 MG/20 ML UDP PO SCH (09:58)
[2018-08-02] MEDS: guaiFENesin 200 MG TAB PO SCH ×3 (09:58→21:21)
[2018-08-02] MEDS: FAMOTIDINE 20 MG TAB PO SCH ×2 (09:59→21:21)
[2018-08-02] MEDS: POT PHOSPHATE MONOBASIC W/ SOD TAB PO SCH (10:00)
[2018-08-02] MEDS: DOCUSATE SODIUM SYRUP 100 MG/10 ML UDC PO SCH ×2 (10:06→19:12)
[2018-08-02] MEDS: ZINC SULFATE 220 MG CAPSULE PO SCH (10:07)
[2018-08-02] MEDS: cefTRIAXone SODIUM 1,000 MG in DEXTROSE 5% 50 ML IV SCH (13:38)
[2018-08-02] MEDS: ENOXAPARIN INJ 40 MG/0.4 ML SYR SQ SCH (13:44)
[2018-08-02] MEDS: MONTELUKAST SODIUM 10 MG TABLET PO SCH (13:45)
[2018-08-02] MEDS: IMPACT LIQD 1.0 CAL 1,000 ML BAG PEG SCH (13:57)
--- NOTE | 2018-08-02 16:56 | Hospitalist Progress Note ---
Date of Service August 02, 2018 Assessment & Plan (1) Acute respiratory failure with hypoxia: Presented with acute hypoxic respiratory failure due to combination of COPD exacerbation/severe ischemic cardiomyopathy biventricular heart failure with decompensated CHF Sent from correctional facility/usp at [facility] with acute respiratory failure/hypoxia was lethargic/intubated Patient was intubated in ER for airway protection Prior history of advanced COPD: Gold stage III, Patient required long-term mechanical ventilation Status post multiple bronchoscopy 07/14/2018 and 07/31/2018 Showed thick secretions /bilateral mucous plugging, cleared with suction Failed multiple weaning trial from ventilator Status post tracheostomy 07/21/2018 Present on trach collar FiO2 30%, plan to transfer to [facility] on Friday if patient remains hemodynamically stable Severe ischemic cardiomyopathy with EF 20%-noted in echo Patient continued with scheduled diuresis, volume status stable - transitioned to trach collar --s/p PEG tube placement -- tolerating tube feeding (2) Pneumonia: Trach suction specimen 07/29/2018 culture growing Serratia Sensitivity available Sensitive to Rocephin, resistant to quinolone We will DC Augmentin, start with IV Rocephin Antibiotic will be changed to p.o. Keflex on discharge, total 10 days of course (3) Non-ST elevated myocardial infarction (non-STEMI): Type II WV/non-ST elevated W[place]: N/A setting of demand ischemia, severe cardiomyopathy Presented with hypoxia, shortness of breath, leading to respiratory failure elevated troponins 0.092-1.210-1.150 Echo: 07/14/2018 1.Normal LV size with severely reduced systolic function: EF 20-25% global akinesis 2. Normal right ventricular size with severely reduced systolic function. The basal portion of the right ventricle free wall appears to be normally contracted, but otherwise right ventricle appears severely hypokinetic to akinetic 3. Small pericardial effusion, along the right ventricular free wall . No echocardiographic evidence of tamponade physiology. Unknown baseline type II non-ST elevated WV/demand ischemia in the setting of respiratory failure/ hypoxia Was on dobutamine gtt for severe cardiomyopathy/biventricular heart failure Weaned off -- continue Metoprolol tartrate 25mg po BID (4) Acute systolic CHF (congestive heart failure), NYHA class 2: severe ischemic cardiomyopathy with EF of 20-25%, with global hypokinesis with biventricular heart failure -- appears euvolemic continue Lasix 40mg po daily, Spironolactone 25mg po daily Appreciate cardiology eval (5) COPD (chronic obstructive pulmonary disease): Baseline advanced COPD, recent admission few months back at [facility] with COPD exacerbation Presented with hypoxia, respiratory failure, due to COPD exacerbation requiring mechanical ventilation, bronchoscopy continue Nebs, Prednisone daily Respite status improved, on trach collar, (6) Discharge planning issues: CODE STATUS: DNR/DNI DVT prophylaxis: Subcu Lovenox DISPOSITION: Pt is a prisoner at [facility] Plan to transfer to [facility] on Friday, Will update present physician prior to discharge (7) Constipation: GoLYTELY given resolved Subjective Patient denies of any discomfort, no shortness of breath, effort by, vitals remained stable On trach collar FiO2 30% with oxygenation around 92-93%, stable to be transferred out of the intensive care unit Physical Exam Vital Signs (Past 24 Hours): Last Vital Signs Temp 36.8 C 08/02/18 15:48 Pulse 97 H 08/02/18 15:48 Resp 18 08/02/18 15:48 BP 114/75 08/02/18 15:48 Pulse Ox 92 08/02/18 15:48 Constitutional: no acute distress Eyes: + anicteric sclerae ENMT: Mouth: + dry oral mucous membranes Neck: normal visual inspection and trachea midline Respiratory: normal respiratory effort, lungs clear to auscultation (On trach/on CPAP vent setting) no cough Auscultation: + diminished lung sounds; no crackles and no rales Cardiovascular: Rate/Rhythm: regular rate and regular rhythm Vessels: no JVD Extremities: no pedal edema and no edema Gastrointestinal (Abdomen): Percussion/Palpation: abdomen soft; abdomen nontender Neurologic: moves all extremities and awake (1) COPD (chronic obstructive pulmonary disease) COPD type: unspecified COPD Qualified Code(s): J44.9 - Chronic obstructive pulmonary disease, unspecified (2) Pneumonia Laterality: bilateral Lung location: lower lobe of lung Pneumonia type: due to unspecified organism Qualified Code(s): J18.1 - Lobar pneumonia, unspecified organism
[2018-08-03] MEDS: LEVALBUTEROL 1.25MG/0.5ML NEB INH SCH ×6 (03:35→23:08)
[2018-08-03] MEDS: IPRATROPIUM BROMIDE NEB SOLN 0.02% 2.5 ML VIAL NEB SCH ×6 (03:35→23:08)
[2018-08-03] MEDS: IMPACT LIQD 1.0 CAL 1,000 ML BAG PEG SCH (07:41)
[2018-08-03] MEDS: MEGESTROL ACETATE 800 MG/20 ML UDP PO SCH (07:50)
[2018-08-03] MEDS: FLUTICASONE/SALMETEROL (ADVAIR) 500/50 INH 14 PUFF INH SCH ×2 (07:50→21:14)
[2018-08-03] MEDS: MULTI VIT W/MINERALS LIQUID 15 ML UDP PO SCH (07:50)
[2018-08-03] MEDS: POT PHOSPHATE MONOBASIC W/ SOD TAB PO SCH (07:51)
[2018-08-03] MEDS: FAMOTIDINE 20 MG TAB PO SCH ×2 (07:51→21:13)
[2018-08-03] MEDS: guaiFENesin 200 MG TAB PO SCH ×3 (07:51→21:14)
[2018-08-03] MEDS: ZINC SULFATE 220 MG CAPSULE PO SCH (07:52)
[2018-08-03] MEDS: MONTELUKAST SODIUM 10 MG TABLET PO SCH (07:52)
[2018-08-03] MEDS: SPIRONOLACTONE 25 MG TAB PO SCH (07:52)
[2018-08-03] MEDS: FUROSEMIDE 40 MG TAB PO SCH (07:52)
[2018-08-03] MEDS: DOCUSATE SODIUM SYRUP 100 MG/10 ML UDC PO SCH ×3 (07:52→21:56)
[2018-08-03] MEDS: ASPIRIN 81 MG CHEW NG SCH (07:59)
[2018-08-03] MEDS: METOPROLOL TARTRATE 50 MG TAB PO SCH ×2 (09:40→21:13)
[2018-08-03] MEDS: ENOXAPARIN INJ 40 MG/0.4 ML SYR SQ SCH (13:08)
[2018-08-03] MEDS: cefTRIAXone SODIUM 1,000 MG in DEXTROSE 5% 50 ML IV SCH (13:57)
--- NOTE | 2018-08-03 15:30 | Hospitalist Progress Note ---
Date of Service August 03, 2018 Assessment & Plan (1) Acute respiratory failure with hypoxia: Presented with acute hypoxic respiratory failure due to combination of COPD exacerbation/severe ischemic cardiomyopathy biventricular heart failure with decompensated CHF Sent from correctional facility/fci at [facility] with acute respiratory failure/hypoxia was lethargic/intubated Patient was intubated in ER for airway protection Prior history of advanced COPD: Gold stage III, Patient required long-term mechanical ventilation Status post multiple bronchoscopy 07/14/2018 and 07/31/2018 Showed thick secretions /bilateral mucous plugging, cleared with suction Failed multiple weaning trial from ventilator Status post tracheostomy 07/21/2018 Present on trach collar FiO2 30%, plan to transfer to [facility] on Friday if patient remains hemodynamically stable Severe ischemic cardiomyopathy with EF 20%-noted in echo Patient continued with scheduled diuresis, volume status stable - transitioned to trach collar --s/p PEG tube placement -- tolerating tube feeding (2) Pneumonia: Trach suction specimen 07/29/2018 culture growing Serratia Sensitivity available Sensitive to Rocephin, resistant to quinolone We will DC Augmentin, start with IV Rocephin Antibiotic will be changed to p.o. Keflex on discharge, total 10 days of course (3) Non-ST elevated myocardial infarction (non-STEMI): Type II OR/non-ST elevated [place]: N/A setting of demand ischemia, severe cardiomyopathy Presented with hypoxia, shortness of breath, leading to respiratory failure elevated troponins 0.092-1.210-1.150 Echo: 07/14/2018 1.Normal LV size with severely reduced systolic function: EF 20-25% global akinesis 2. Normal right ventricular size with severely reduced systolic function. The basal portion of the right ventricle free wall appears to be normally contracted, but otherwise right ventricle appears severely hypokinetic to akinetic 3. Small pericardial effusion, along the right ventricular free wall . No echocardiographic evidence of tamponade physiology. Unknown baseline type II non-ST elevated [place]/demand ischemia in the setting of respiratory failure/ hypoxia Was on dobutamine gtt for severe cardiomyopathy/biventricular heart failure Weaned off -- continue Metoprolol tartrate 25mg po BID (4) Acute systolic CHF (congestive heart failure), NYHA class 2: severe ischemic cardiomyopathy with EF of 20-25%, with global hypokinesis with biventricular heart failure -- appears euvolemic continue Lasix 40mg po daily, Spironolactone 25mg po daily Appreciate cardiology eval (5) COPD (chronic obstructive pulmonary disease): Baseline advanced COPD, recent admission few months back at [facility] with COPD exacerbation Presented with hypoxia, respiratory failure, due to COPD exacerbation requiring mechanical ventilation, bronchoscopy continue Nebs, Prednisone daily Respite status improved, on trach collar, (6) Discharge planning issues: CODE STATUS: DNR/DNI DVT prophylaxis: Subcu Lovenox DISPOSITION: Pt is a prisoner at [facility] Plan to transfer to [facility] on Friday, Will update present physician prior to discharge (7) Constipation: GoLYTELY given resolved Subjective continues to have yellow secretion d/w Pulmonology for possible bronchoscpy Physical Exam Vital Signs (Past 24 Hours): Last Vital Signs Temp 36.6 C 08/03/18 15:06 Pulse 94 H 08/03/18 15:10 Resp 18 08/03/18 15:10 BP 104/70 08/03/18 15:06 Pulse Ox 90 08/03/18 15:10 Constitutional: no acute distress Eyes: + anicteric sclerae ENMT: Mouth: + dry oral mucous membranes Neck: normal visual inspection and trachea midline Respiratory: normal respiratory effort, lungs clear to auscultation (On trach/on CPAP vent setting) no cough Auscultation: + diminished lung sounds; no crackles and no rales Cardiovascular: Rate/Rhythm: regular rate and regular rhythm Vessels: no JVD Extremities: no pedal edema and no edema Gastrointestinal (Abdomen): Percussion/Palpation: abdomen soft; abdomen nontender Neurologic: moves all extremities and awake (1) Pneumonia Laterality: bilateral Lung location: lower lobe of lung Pneumonia type: due to unspecified organism Qualified Code(s): J18.1 - Lobar pneumonia, unspecified organism (2) COPD (chronic obstructive pulmonary disease) COPD type: unspecified COPD Qualified Code(s): J44.9 - Chronic obstructive pulmonary disease, unspecified
--- NOTE | 2018-08-04 00:03 | Consultation Report ---
DATE OF CONSULTATION: 08/03/2018 HISTORY OF PRESENT ILLNESS: The pt is a 62-year-old with a chronic trach and a history of biventricular heart failure, recent non-STEMI infarct, and bout of acute respiratory failure with hypoxemia along with COPD. The patient is a 62-year-old incarcerated individual at [place] who had been in the ICU for a prolonged course and was seen by Dr. Ema Joya from a critical care standpoint while in the unit. He has also been followed by GI and palliative care medicine. He has a history of severe COPD, dependent on oxygen, incarcerated for many years, also history of hepatitis B, cirrhosis and was admitted with hypoxemia and acute respiratory failure. Apparently, patient sustained a non-STEMI infarct and has an EF of only 20%. Chest x-ray showed evidence for emphysema as well as CHF. He had to be emergently intubated and ventilated. He was cared for initially by Dr. Nino. A G-tube was placed. Apparently, he has to be granted parole soon and would be living with his sister in [facility]. I was asked to see patient in consultation today by Dr. Banegas, the hospitalist because he sounding more congested despite frequent suctioning of his trach. For details of his past medical history, medications, family history, etc., I refer you to voluminous notes by multiple providers as he was initially admitted on 07/14/2018 after a prolonged hospitalization in March for similar reasons. He has been followed by cardiology, Dr. Obrien. PHYSICAL EXAMINATION: GENERAL: Reveals a cachectic elderly white male appearing older than stated age in no respiratory distress. VITAL SIGNS: Current blood pressure 104/70, pulse 94 and regular, respiratory rate 18, temperature 36.6, O2 sat 90% on trach collar at 30% FiO2. SKIN: Without lesion. HEENT: Atraumatic, normocephalic, PERRLA, EOMI. Conjunctivae pale. Sclerae nonicteric. Fundi poorly visualized. NECK: Veins not distended at 45 degrees. The trach site looks adequate with no signs of fluctuance around the trach stoma. LUNGS: Coarse rhonchi diffusely, especially a large adventitious breath sounds in the large airway. CARDIAC: Regular rhythm. I do not appreciate a gallop. ABDOMEN: Soft, scaphoid. G-tube in place. EXTREMITIES: No significant pedal edema, clubbing or cyanosis. NEUROLOGIC: Intact. No lateralizing signs. LABORATORY DATA: Most recent white count 2 days ago 14,000; H and H 9.1 and 27.7. ABGs were well compensated on 07/27/2018 with recent chest x-ray on 07/29/2018 showed tracheostomy and central catheter in good position. There is a parenchymal infiltrate left base with emphysema seen predominantly in the upper lobes. Bronch washing from 07/31/2018 grew up [place]. Suctioned sputum for 07/29/2018 grew out Serratia marcescens. Currently, the patient is on IV ceftriaxone and Lovenox subQ prophylaxis receiving aerosolized bronchodilator. OVERALL ASSESSMENT: A 62-year-old severe chronic obstructive pulmonary disease, ischemic cardiomyopathy, presents with acute hypoxic respiratory failure with prolonged mechanical ventilation, requiring tracheostomy tube insertion, now with continued significant secretions. The patient clearly is going to be a management issue even at the [facility] as he sounds quite congested despite frequent suctioning according to staff. We certainly can use acetylcysteine or even Pulmozyme to try to thin out his secretions along with aerosolized bronchodilator and chest physiotherapy along with frequent suctioning. We will schedule him for bronchoscopic intervention tomorrow. STEVEN
[2018-08-04] MEDS: LEVALBUTEROL 1.25MG/0.5ML NEB INH SCH ×6 (03:20→23:40)
[2018-08-04] MEDS: IPRATROPIUM BROMIDE NEB SOLN 0.02% 2.5 ML VIAL NEB SCH ×6 (03:20→23:40)
[2018-08-04] MEDS: FLUTICASONE/SALMETEROL (ADVAIR) 500/50 INH 14 PUFF INH SCH ×2 (09:53→21:01)
[2018-08-04] MEDS: SPIRONOLACTONE 25 MG TAB PO SCH (10:20)
[2018-08-04] MEDS: MEGESTROL ACETATE 800 MG/20 ML UDP PO SCH (10:21)
[2018-08-04] MEDS: METOPROLOL TARTRATE 50 MG TAB PO SCH ×2 (10:21→21:01)
[2018-08-04] MEDS: ASPIRIN 81 MG CHEW NG SCH (10:21)
[2018-08-04] MEDS: DOCUSATE SODIUM SYRUP 100 MG/10 ML UDC PO SCH ×2 (10:21→21:01)
[2018-08-04] MEDS: MULTI VIT W/MINERALS LIQUID 15 ML UDP PO SCH (10:21)
[2018-08-04] MEDS: FUROSEMIDE 40 MG TAB PO SCH (10:21)
[2018-08-04] MEDS: guaiFENesin 200 MG TAB PO SCH ×3 (10:22→21:01)
[2018-08-04] MEDS: ZINC SULFATE 220 MG CAPSULE PO SCH (10:22)
[2018-08-04] MEDS: MONTELUKAST SODIUM 10 MG TABLET PO SCH (10:22)
[2018-08-04] MEDS: POT PHOSPHATE MONOBASIC W/ SOD TAB PO SCH (10:22)
[2018-08-04] MEDS: FAMOTIDINE 20 MG TAB PO SCH ×2 (10:22→21:02)
[2018-08-04] MEDS ORDERED: MIDAZOLAM HCL 1 MG/ML 2ML VIAL IV STA (11:18)
[2018-08-04] MEDS ORDERED: LEVALBUTEROL 1.25MG/0.5ML NEB NEB STA (11:18)
[2018-08-04] MEDS ORDERED: LIDOCAINE HCL VISCOUS SOLN 2% 15 ML UDC MT ONE (11:18)
--- NOTE | 2018-08-04 12:48 | Post Operative Brief Note ---
Immediate Post Op Note v1 Date of Surgery August 04, 2018 Pre & Post Diagnosis Operation Date: 07/27/18 08:30 Pre-Op Diagnosis: RESPIRATORY FAILURE Post-Op Diagnosis: percutaneous endoscopic gastrostomy placement Operation Date: 08/04/18 10:00 Pre-Op Diagnosis: Chronic Respiratory Failure, COPD Post-Op Diagnosis: Chronic Respiratory Failure, COPD Procedure Operation Date: 07/27/18 08:30 Actual Procedures p EGD Gastric Tube Placement - Danilo Staley MD Operation Date: 08/04/18 10:00 Actual Procedures p Bronchoscopy Radiology(Bilateral) - Danilo Mendez MD Surgeon Danilo Mendez MD Manager [employer] none Estimated Blood Loss 0 Findings Consistent with Post-Op Diagnosis Chronic Mucopurulent infection Complications none Disposition Accompanied Patient To Recovery: No Overlapping Procedure I was present for: the critical portions of procedure. I was immediately available: during the entire case. Back up surgeon: was not required during procedure.
--- NOTE | 2018-08-04 12:48 | Post Anesthesia Assessment ---
Date of Service August 04, 2018 Post Sedation Assessment Vital Signs Temp Pulse Pulse Resp BP Pulse Ox 08/04/18 11:48 36.7 C 107 H 20 105/68 90 08/04/18 11:30 99 H 16 131/73 91 08/04/18 11:25 99 H 16 131/73 91 08/04/18 11:20 105 H 16 129/72 87 L 08/04/18 11:15 102 H 16 116/69 92 08/04/18 11:10 98 H 14 102/66 94 08/04/18 11:05 100 H 16 98/66 L 96 08/04/18 11:00 97 H 16 99/65 L 92 08/04/18 10:55 100 H 16 95/63 L 92 08/04/18 10:53 102 H 08/04/18 10:50 94 H 16 95/64 L 90 08/04/18 10:45 100 H 16 90/60 L 89 L 08/04/18 08:13 36.8 C 107 H 20 98/66 L 92 08/04/18 06:53 102 H 18 93 08/04/18 05:07 36.4 C L 107 H 20 100/67 90 08/04/18 03:20 99 H 24 91 08/04/18 01:00 84 08/04/18 00:32 36.5 C 91 H 20 99/66 L 92 08/03/18 23:08 86 20 92 08/03/18 19:20 97 H 20 92 08/03/18 19:08 36.9 C 112 H 20 106/68 92 08/03/18 16:00 95 H 08/03/18 15:10 94 H 18 90 08/03/18 15:06 36.6 C 95 H 18 104/70 91 Recovery Score Activity: Moves 4 extremities Respiration: Deep Breath/Cough Circulation: +/-20% PreAnes Value Consciousness: Fully Awake Oxygen Saturation: O2 needed for >90% Post Anesthesia Score: 9 Discharge Sedation Level of Care: Higher Level of Care (patient to remain in ICU as previously admitted) Post Sedation Plan On clinical assessment, the patient appears to have tolerated the sedation without complications. Patient is recovering as anticipated. Patient will continue to be monitored by nursing and may be discharged when sedation discharge criteria are met per below protocol. Upon Completions of procedure and additional 15 minutes continue every 5 minute vital signs and the P.A.R. score; then discharge to a Phase I or Fast Track to Phase II per the following guidelines: * Discharge Patient to appropriate Phase II area if PAR is 8 or greater or return to pre- procedure baseline. The post - procedure orders will be as directed. * If PAR score is less than 8 or not return to pre-procedure baseline then patient will follow Phase I monitoring till PAR is reached for Phase II. The Phase I may be done in procedure room or may call to secure a Phase I area. * If naloxone or flumazenil are used for reversal, hold in Phase I for continued monitoring from when last reversal dose was given for a minimum of 60 minutes or longer pending the nurse and/or physician discretion of patient condition before discharge to Phase II. Please call the Sedation Physician to re-evaluate and complete post-note for discharge to Phase II area. Do NOT discharge from procedure sedation or Phase 1 until post- sedation evaluation note is complete by procedure /sedation MD Sedation Discharge Instructions to be given to the patient at discharge to home.
[2018-08-04] MEDS: ENOXAPARIN INJ 40 MG/0.4 ML SYR SQ SCH (12:54)
[2018-08-04] MEDS: cefTRIAXone SODIUM 1,000 MG in DEXTROSE 5% 50 ML IV SCH (13:44)
--- NOTE | 2018-08-04 15:05 | Hospitalist Progress Note ---
Date of Service August 04, 2018 Assessment & Plan (1) Acute respiratory failure with hypoxia: 2/2 COPD exacerbation, biventricular heart failure and pneumonia Status post multiple bronchoscopy 07/14/2018 and 07/31/2018 Showed thick secretions /bilateral mucous plugging, cleared with suction Repeat bronch performed today again. Failed multiple weaning trial from ventilator Status post tracheostomy 07/21/2018 (2) Pneumonia: 2/2 serratia sensitive to Rocephin. Transition to Keflex PO on discharge for total 10 day course. (3) Demand ischemia: elevated trop 2/2 demand ischemia (4) Acute systolic CHF (congestive heart failure), NYHA class 2: severe ischemic cardiomyopathy with EF of 20-25%, with global hypokinesis with biventricular heart failure. Cont Lasix 40mg PO daily, Aldactone 25mg PO daily (5) COPD (chronic obstructive pulmonary disease): exacerbation, improved with steroids, nebs. Cont support with chronic oxygen. (6) DVT prophylaxis: Lovenox DNR Dispo-back to [facility]. Will consult palliative care to assist with patient wishes to have trach reversed. Negin Adamson DO [facility] Hospitalist Subjective Admitted for acute respiratory failure s/p trach and PEG. Bronch today to remove additional secretions. Pt is doing well post-procedure but appears to have concerns about his PEG and wants it reversed. Physical Exam Vital Signs (Past 24 Hours): Last Vital Signs Temp 36.7 C 08/04/18 11:48 Pulse 100 H 08/04/18 14:57 Resp 18 08/04/18 14:57 BP 105/68 08/04/18 11:48 Pulse Ox 90 08/04/18 14:57 CONSTITUTIONAL: thin, vitals as above, generally well-appearing EYES: normal conjuctivae, no scleral icterus ENT: MMM NECK: tracheostomy in place, on trach collar. RESPIRATORY: clear to auscultation bilaterally, no crackles, rales or wheezes, normal respiratory effort CARDIOVASCULAR: regular rate and rhythm, S1 and 2 heard without murmurs, gallops or rubs GASTROINTESTINAL: normal bowel sounds, soft, nontender, nondistended, PEG site is clean, dry and intact. MUSCULOSKELETAL: strength 5/5 throughout, head is normocephalic and atraumatic, neck supple, normal palpation of chest wall without tenderness SKIN: warm and dry NEUROLOGIC: No facial palsy, no dysarthria. CN 2-12 grossly intact, normal cognition, normal speech, no tremor PSYCHIATRIC: alert cooperative and oriented to person, place and time. Results & Data Medications Administered Current Inpatient Medications Acetaminophen (Tylenol) 650 mg PO Q6H PRN PRN Reason: Fever Stop: 08/24/18 04:15 Last Admin: 07/29/18 20:25 Dose: 650 mg Documented by: Acetylcysteine (Mucomyst 20%) 3 ml INH BIDR [facility] Stop: 09/03/18 19:59 Aspirin (Aspirin Chew) 81 mg NG DAILY [facility] Stop: 08/14/18 11:44 Last Admin: 08/04/18 10:21 Dose: Not Given Documented by: Dextrose (Dextrose 50%) 25 - 50 ml IV UD PRN; Protocol PRN Reason: Hypoglycemia Protocol Stop: 08/13/18 10:58 Docusate Sodium (Colace) 100 mg PO BID [facility] Stop: 08/19/18 10:44 Last Admin: 08/04/18 10:21 Dose: Not Given Documented by: Enoxaparin Sodium (Lovenox) 40 mg SQ Q24H [facility] Stop: 08/13/18 11:59 Last Admin: 08/04/18 12:54 Dose: 40 mg Documented by: Enteral Nutritional Formula (Impact 1.0 Galo) 1,000 ml PEG UD [facility]; Protocol Stop: 08/27/18 09:20 Last Admin: 08/03/18 07:41 Dose: 1,000 ml Documented by: Famotidine (Pepcid) 20 mg PO BID [facility] Stop: 08/22/18 09:14 Last Admin: 08/04/18 10:22 Dose: Not Given Documented by: Furosemide (Lasix) 40 mg PO DAILY [facility] Stop: 08/21/18 08:59 Last Admin: 08/04/18 10:21 Dose: Not Given Documented by: Glucagon (Glucagen) 1 mg SQ UD PRN; Protocol PRN Reason: Hypoglycemia Protocol Stop: 08/13/18 10:58 Glucose (Glucose 40%) 15 - 30 gm PO UD PRN; Protocol PRN Reason: Hypoglycemia Protocol Stop: 08/13/18 10:58 Glucose (Dex4 Glucose) 4 - 8 tabs PO UD PRN; Protocol PRN Reason: Hypoglycemia Protocol Stop: 08/13/18 10:58 Guaifenesin (Organidin Nr) 400 mg PO TID [facility] Stop: 08/31/18 14:33 Last Admin: 08/04/18 13:44 Dose: 400 mg Documented by: Heparin Sodium (Beef Lung) (Heparin Sod 10 Unit/Ml Flush) 5 ml FLUSH PRN PRN PRN Reason: Flush Stop: 08/22/18 11:58 Last Admin: 08/03/18 14:40 Dose: 5 ml Documented by: Ceftriaxone Sodium 1,000 mg/ (Dextrose) 50 mls @ 100 mls/hr IV Q24H [facility]; Protocol Stop: 08/08/18 13:59 Last Infusion: 08/04/18 14:22 Dose: Infused Documented by: Ipratropium [place] (Atrovent 0.02% 0.5mg/2.5ml) 0.5 mg NEB Q4R [facility] Stop: 08/13/18 11:59 Last Admin: 08/04/18 14:57 Dose: 0.5 mg Documented by: Levalbuterol HCl (Xopenex 1.25mg/0.5ml Neb) 1.25 mg INH Q4R [facility] Stop: 08/16/18 15:59 Last Admin: 08/04/18 14:57 Dose: 1.25 mg Documented by: Levalbuterol HCl (Xopenex Hfa) 2 puffs INH TID PRN PRN Reason: Shortness Of Breath Or Wheezin Stop: 08/31/18 14:33 Magnesium Citrate (Citrate) 148 - 296 ml PO DAILY PRN PRN Reason: Constipation Stop: 08/23/18 14:41 Megestrol Acetate (Megace) 800 mg PO DAILY [facility] Stop: 08/24/18 08:59 Last Admin: 08/04/18 10:21 Dose: Not Given Documented by: Metoprolol Tartrate (Lopressor) 50 mg PO BID [facility] Stop: 08/25/18 08:59 Last Admin: 08/04/18 10:21 Dose: Not Given Documented by: Miscellaneous (Carbohydrates For Hypoglycemia) 15 - 30 gm PO UD PRN PRN Reason: Hypoglycemia Treatment Stop: 08/13/18 10:58 Montelukast Sodium (Singulair) 10 mg PO QAM [facility] Stop: 08/31/18 14:33 Last Admin: 08/04/18 10:22 Dose: Not Given Documented by: Multivitamins/Minerals (Cerovite Liquid) 15 ml PO DAILY [facility] Stop: 08/21/18 08:59 Last Admin: 08/04/18 10:21 Dose: Not Given Documented by: Potassium Phosphate (Phospha 250 Neutral 155-852-130 Mg) 1 tab PO DAILY [facility] Stop: 08/23/18 08:59 Last Admin: 08/04/18 10:22 Dose: Not Given Documented by: Fluticasone/Salmeterol (Advair Diskus 500/50) 1 puffs INH BID [facility] Stop: 08/31/18 20:59 Last Admin: 08/04/18 09:53 Dose: 1 puffs Documented by: Sodium Chloride (Sodium Chlor 7% Neb Solution) 4 ml INH BIDR [facility] Stop: 09/03/18 19:59 Spironolactone (Aldactone) 25 mg PO DAILY [facility] Stop: 08/21/18 08:59 Last Admin: 08/04/18 10:20 Dose: Not Given Documented by: Zinc Sulfate (Zinc Sulfate) 220 mg PO DAILY [facility] Stop: 08/21/18 09:14 Last Admin: 08/04/18 10:22 Dose: Not Given Documented by: (1) COPD (chronic obstructive pulmonary disease) COPD type: unspecified COPD Qualified Code(s): J44.9 - Chronic obstructive pulmonary disease, unspecified (2) Pneumonia Laterality: bilateral Lung location: lower lobe of lung Pneumonia type: due to unspecified organism Qualified Code(s): J18.1 - Lobar pneumonia, unspecified organism
[2018-08-04] MEDS: ACETYLCYSTEINE 20% INHAL SOLN ***DISPENSED BY RESP. INH SCH (20:17)
[2018-08-04] MEDS: IMPACT LIQD 1.0 CAL 1,000 ML BAG PEG SCH (21:00)
--- NOTE | 2018-08-04 23:25 | Operative Report ---
DATE OF OPERATION: 08/04/2018 PROCEDURE: Fiberoptic bronchoscopy with bronchoalveolar lavage. INDICATIONS: The patient with chronic tracheostomy, chronic respiratory failure with history of mucoid impaction. ANESTHESIA PREOPERATIVELY: None. ANESTHESIA DURING PROCEDURE: IV Versed 2 mg. DESCRIPTION OF PROCEDURE: Moderate conscious sedation was applied 1107 and completed 1. Fiberoptic bronchoscope was inserted through a trach collar into the tracheostomy tube stoma with the inner cannula removed. Copious mucopurulent secretion was lavaged from the trachea and right and left tracheobronchial tree. The kendrick was sharp. The right main stem bronchus was found to be free of endobronchial lesions. Right upper lobe, the apical posterior, anterior segments, bronchus intermedius, right middle lobe, medial lateral segments and all basilar segments right lower lobe were found to be free of endobronchial lesions with a copious amount of mucoviscous secretion lavaged from each lobar segment and segmental bronchus until clear. Left tracheobronchial tree showed similar findings with thick copious mucoviscous secretion lavaged from left upper lobe, lingular subdivision and left lower lobe until clear. Left upper lobe, the apical posterior and anterior segment, lingular subdivision, left lower lobe were free of endobronchial lesions down to subsegmental bronchi. The procedure was terminated. The patient was administered 40 mg of IV Solu-Medrol and nebulizer treatment with Xopenex 1.25 mg and was transferred back to the medical floor, hemodynamically stable. No further signs of respiratory compromise. We will await microbiological and cytologic examination of bronchial washings. I attest to the content of the Intraoperative Record and any orders documented therein. Any exception s are noted below.
[2018-08-04] MEDS: SODIUM CHLOR 7% 4 ML NEB INH SCH (23:36)
[2018-08-05 06:48] LABS: Hematocrit (blood only) 24.2 % (42-52); Hemoglobin 8.3 g/dL (14.0-18.0); Mean Corpuscular Hgb Conc 34.3 g/dL (32-36); Mean Corpuscular Volume 89.6 fL (80-100); Mean Platelet Volume 9.2 fL (7.4-10.4); Platelet Count 375 K/uL (130-400); RDW Coefficient of Variation 15.3 % (11.5-14.5); RDW Standard Deviation 49.9 fL (36.4-46.3); White Blood Count 9.29 K/uL (4.8-10.8)
[2018-08-05] MEDS: LEVALBUTEROL HCL 1.25 MG/3 ML NEB INH PRN ×2 (07:03→19:52)
[2018-08-05] MEDS: SODIUM CHLOR 7% 4 ML NEB INH SCH ×2 (07:03→20:09)
[2018-08-05] MEDS: IPRATROPIUM BROMIDE NEB SOLN 0.02% 2.5 ML VIAL NEB PRN ×2 (07:03→19:52)
[2018-08-05] MEDS: ACETYLCYSTEINE 20% INHAL SOLN ***DISPENSED BY RESP. INH SCH ×2 (07:03→19:51)
[2018-08-05 07:20] LABS: Calcium 8.5 mg/dl (8.5-10.1); Creatinine Clr Calc Pharmacy 141.6 ml/min; Est GFR (African American) 149.6; Est GFR (Non-African American) 129.1; Potassium 3.7 mmol/L (3.5-5.1)
[2018-08-05] MEDS: MONTELUKAST SODIUM 10 MG TABLET PO SCH (08:34)
[2018-08-05] MEDS: POT PHOSPHATE MONOBASIC W/ SOD TAB PO SCH (08:34)
[2018-08-05] MEDS: guaiFENesin 200 MG TAB PO SCH ×3 (08:35→20:49)
[2018-08-05] MEDS: DOCUSATE SODIUM SYRUP 100 MG/10 ML UDC PO SCH ×2 (08:35→20:49)
[2018-08-05] MEDS: FAMOTIDINE 20 MG TAB PO SCH ×2 (08:35→20:50)
[2018-08-05] MEDS: ZINC SULFATE 220 MG CAPSULE PO SCH (08:35)
[2018-08-05] MEDS: METOPROLOL TARTRATE 50 MG TAB PO SCH ×2 (08:35→20:49)
[2018-08-05] MEDS: SPIRONOLACTONE 25 MG TAB PO SCH (08:36)
[2018-08-05] MEDS: MEGESTROL ACETATE 800 MG/20 ML UDP PO SCH (08:36)
[2018-08-05] MEDS: MULTI VIT W/MINERALS LIQUID 15 ML UDP PO SCH (08:36)
[2018-08-05] MEDS: FUROSEMIDE 40 MG TAB PO SCH (08:36)
[2018-08-05] MEDS: FLUTICASONE/SALMETEROL (ADVAIR) 500/50 INH 14 PUFF INH SCH ×2 (08:42→20:49)
[2018-08-05] MEDS: ASPIRIN 81 MG CHEW NG SCH (08:42)
[2018-08-05] MEDS: ENOXAPARIN INJ 40 MG/0.4 ML SYR SQ SCH (12:02)
--- NOTE | 2018-08-05 13:22 | Palliative Care Progress Note ---
Date of Service August 05, 2018 Assessment & Plan (1) Goals of care, counseling/discussion: -Saw patient in room [address]. Patient has been saying that he wants his trach reversed. Discussed goals of care. -Patient is worried that the group home is trying to keep them in their facilities even though he has been granted parole. Explained that from our understanding, no matter what medical condition he is in upon leaving the hospital, he will have to return to the group home before he can be released. He conveyed understanding. -Dr. Adamson explained the critical care doctor and decaler's thoughts on his condition and that reversing the trach would be complicated and probably make patient go into repsiratory failure very quickly. He would also probably not be able to clear his secretions effectively. Explained that if he keeps the trach, he can have a speaking valve placed so he is able to talk and maybe even eat by mouth eventually. He agreed. -Patient does not want trach reversed at this time and is okay with continuing care as is. -Please contact me with any further palliative care needs. (2) Acute systolic CHF (congestive heart failure), NYHA class 2: (3) COPD (chronic obstructive pulmonary disease): Subjective Patient awake, alert and oriented x4. Has trach and trach collar present. VS stable. Denies any complaints at this time. REports that he has not needed any suctioning today. he has been able to effectively expectorate secretions. Constitutional: no anorexia Respiratory: + cough and + sputum production; no dyspnea Gastrointestinal: no problem reported Physical Exam Vital Signs (Past 24 Hours): Last Vital Signs Temp 36.6 C 08/05/18 11:27 Pulse 79 08/05/18 11:27 Resp 18 08/05/18 11:27 BP 93/57 L 08/05/18 11:27 Pulse Ox 92 08/05/18 11:27 Constitutional: + ill appearing; no acute distress ENMT: external ear and nose normal, oropharynx normal Neck: normal visual inspection and trachea midline Respiratory: normal respiratory effort; no respiratory distress trach collar present. moist cough noted Cardiovascular: Vessels: no JVD Neurologic: awake; not confused Psychiatric: A+Ox3, euthymic affect (unable to speak due to trach, but writes using whiteboard) Time Spent Midlevel 15 minutes with >50% of time spent at bedside with patient and Dr. Adamson discussing GOC. (1) COPD (chronic obstructive pulmonary disease) COPD type: unspecified COPD Qualified Code(s): J44.9 - Chronic obstructive pulmonary disease, unspecified
--- NOTE | 2018-08-05 13:30 | Hospitalist Progress Note ---
Date of Service August 05, 2018 Assessment & Plan (1) Acute respiratory failure with hypoxia: Failed multiple weaning trial from ventilator Status post tracheostomy 07/21/2018 2/2 COPD exacerbation, biventricular heart failure and pneumonia Status post multiple bronchoscopy 07/14/2018 , 07/31/2018 and 08/04 Showed thick secretions /bilateral mucous plugging, cleared with suction Doing better today and Pulm ok for discharge. (2) Pneumonia: 2/2 serratia sensitive to Rocephin. Transition to Keflex PO on discharge for total 10 day course. (3) Demand ischemia: elevated trop 2/2 demand ischemia (4) Acute systolic CHF (congestive heart failure), NYHA class 2: severe ischemic cardiomyopathy with EF of 20-25%, with global hypokinesis with biventricular heart failure. Cont Lasix 40mg PO daily, Aldactone 25mg PO daily Currently compensated (5) COPD (chronic obstructive pulmonary disease): exacerbation, improved with steroids, nebs. Cont support with chronic oxygen. (6) DVT prophylaxis: Lovenox DNR Dispo-back to senior living in am. Negin Adamson DO [facility] Hospitalist Subjective feels better today minimal secretions, decreased from yesterday speaking valve is at bedside clarified for me that "diarrhea" yesterday was in response to a laxative. he had last BM overnight OK with keeping trach in place Understands the dangers associated with removing this Physical Exam Vital Signs (Past 24 Hours): Last Vital Signs Temp 36.6 C 08/05/18 11:27 Pulse 79 08/05/18 11:27 Resp 18 08/05/18 11:27 BP 93/57 L 08/05/18 11:27 Pulse Ox 92 08/05/18 11:27 CONSTITUTIONAL: thin, vitals as above, generally well-appearing EYES: normal conjuctivae, no scleral icterus ENT: MMM NECK: tracheostomy in place, on trach collar. RESPIRATORY: clear to auscultation bilaterally, no crackles, rales or wheezes, normal respiratory effort CARDIOVASCULAR: regular rate and rhythm, S1 and 2 heard without murmurs, gallops or rubs GASTROINTESTINAL: normal bowel sounds, soft, nontender, nondistended, PEG site is clean, dry and intact. MUSCULOSKELETAL: strength 5/5 throughout, head is normocephalic and atraumatic, neck supple, normal palpation of chest wall without tenderness SKIN: warm and dry NEUROLOGIC: No facial palsy, no dysarthria. CN 2-12 grossly intact, normal cognition, normal speech, no tremor PSYCHIATRIC: alert cooperative and oriented to person, place and time. Results & Data Laboratory Results Short CBC 08/05/18 Range/Units 06:11 WBC 9.29 (4.8-10.8) K/uL Hgb 8.3 L (14.0-18.0) g/dL Hct 24.2 L (42-52) % Plt Count 375 (130-400) K/uL BMP 08/05/18 06:11 Sodium 131 L Potassium 3.7 Chloride 93 L Carbon Dioxide 35 H BUN 24 H Creatinine 0.38 L Glucose 125 H Calcium 8.5 Medications Administered Current Inpatient Medications Acetaminophen (Tylenol) 650 mg PO Q6H PRN PRN Reason: Fever Stop: 08/24/18 04:15 Last Admin: 07/29/18 20:25 Dose: 650 mg Documented by: Acetylcysteine (Mucomyst 20%) 3 ml INH BIDR SIENNA Stop: 09/03/18 19:59 Last Admin: 08/05/18 07:03 Dose: 3 ml Documented by: Aspirin (Aspirin Chew) 81 mg NG DAILY SIENNA Stop: 08/14/18 11:44 Last Admin: 08/05/18 08:42 Dose: 81 mg Documented by: Dextrose (Dextrose 50%) 25 - 50 ml IV UD PRN; Protocol PRN Reason: Hypoglycemia Protocol Stop: 08/13/18 10:58 Docusate Sodium (Colace) 100 mg PO BID SIENNA Stop: 08/19/18 10:44 Last Admin: 08/05/18 08:35 Dose: 100 mg Documented by: Enoxaparin Sodium (Lovenox) 40 mg SQ Q24H SIENNA Stop: 08/13/18 11:59 Last Admin: 08/05/18 12:02 Dose: 40 mg Documented by: Enteral Nutritional Formula (Impact 1.0 Galo) 1,000 ml PEG UD SIENNA; Protocol Stop: 08/27/18 09:20 Last Admin: 08/04/18 21:00 Dose: 1,000 ml Documented by: Famotidine (Pepcid) 20 mg PO BID SIENNA Stop: 08/22/18 09:14 Last Admin: 08/05/18 08:35 Dose: 20 mg Documented by: Furosemide (Lasix) 40 mg PO DAILY SIENNA Stop: 08/21/18 08:59 Last Admin: 08/05/18 08:36 Dose: 40 mg Documented by: Glucagon (Glucagen) 1 mg SQ UD PRN; Protocol PRN Reason: Hypoglycemia Protocol Stop: 08/13/18 10:58 Glucose (Glucose 40%) 15 - 30 gm PO UD PRN; Protocol PRN Reason: Hypoglycemia Protocol Stop: 08/13/18 10:58 Glucose (Dex4 Glucose) 4 - 8 tabs PO UD PRN; Protocol PRN Reason: Hypoglycemia Protocol Stop: 08/13/18 10:58 Guaifenesin (Organidin Nr) 400 mg PO TID SIENNA Stop: 08/31/18 14:33 Last Admin: 08/05/18 08:35 Dose: 400 mg Documented by: Heparin Sodium (Beef Lung) (Heparin Sod 10 Unit/Ml Flush) 5 ml FLUSH PRN PRN PRN Reason: Flush Stop: 08/22/18 11:58 Last Admin: 08/05/18 06:11 Dose: 10 ml Documented by: Ceftriaxone Sodium 1,000 mg/ (Dextrose) 50 mls @ 100 mls/hr IV Q24H SIENNA; Protocol Stop: 08/08/18 13:59 Last Infusion: 08/04/18 14:22 Dose: Infused Documented by: Ipratropium [place] (Atrovent 0.02% 0.5mg/2.5ml) 0.5 mg NEB Q4H PRN PRN Reason: SOB or wheezing Stop: 09/03/18 23:51 Last Admin: 08/05/18 07:03 Dose: 0.5 mg Documented by: Levalbuterol HCl (Xopenex Hfa) 2 puffs INH TID PRN PRN Reason: Shortness Of Breath Or Wheezin Stop: 08/31/18 14:33 Levalbuterol HCl (Xopenex 1.25mg/3ml Neb) 1.25 mg INH Q4H PRN PRN Reason: SOB or wheezing Stop: 09/03/18 23:51 Last Admin: 08/05/18 07:03 Dose: 1.25 mg Documented by: Magnesium Citrate (Citrate) 148 - 296 ml PO DAILY PRN PRN Reason: Constipation Stop: 08/23/18 14:41 Megestrol Acetate (Megace) 800 mg PO DAILY SIENNA Stop: 08/24/18 08:59 Last Admin: 08/05/18 08:36 Dose: 800 mg Documented by: Metoprolol Tartrate (Lopressor) 50 mg PO BID SIENNA Stop: 08/25/18 08:59 Last Admin: 08/05/18 08:35 Dose: 50 mg Documented by: Miscellaneous (Carbohydrates For Hypoglycemia) 15 - 30 gm PO UD PRN PRN Reason: Hypoglycemia Treatment Stop: 08/13/18 10:58 Montelukast Sodium (Singulair) 10 mg PO QAM SIENNA Stop: 08/31/18 14:33 Last Admin: 08/05/18 08:34 Dose: 10 mg Documented by: Multivitamins/Minerals (Cerovite Liquid) 15 ml PO DAILY SIENNA Stop: 08/21/18 08:59 Last Admin: 08/05/18 08:36 Dose: 15 ml Documented by: Potassium Phosphate (Phospha 250 Neutral 155-852-130 Mg) 1 tab PO DAILY SIENNA Stop: 08/23/18 08:59 Last Admin: 08/05/18 08:34 Dose: 1 tab Documented by: Fluticasone/Salmeterol (Advair Diskus 500/50) 1 puffs INH BID SIENNA Stop: 08/31/18 20:59 Last Admin: 08/05/18 08:42 Dose: 1 puffs Documented by: Sodium Chloride (Sodium Chlor 7% Neb Solution) 4 ml INH BIDR SIENNA Stop: 09/03/18 19:59 Last Admin: 08/05/18 07:03 Dose: 4 ml Documented by: Spironolactone (Aldactone) 25 mg PO DAILY SIENNA Stop: 08/21/18 08:59 Last Admin: 08/05/18 08:36 Dose: 25 mg Documented by: Zinc Sulfate (Zinc Sulfate) 220 mg PO DAILY SIENNA Stop: 08/21/18 09:14 Last Admin: 08/05/18 08:35 Dose: 220 mg Documented by: (1) COPD (chronic obstructive pulmonary disease) COPD type: unspecified COPD Qualified Code(s): J44.9 - Chronic obstructive pulmonary disease, unspecified (2) Pneumonia Laterality: bilateral Lung location: lower lobe of lung Pneumonia type: due to unspecified organism Qualified Code(s): J18.1 - Lobar pneumonia, unspecified organism
[2018-08-05] MEDS: IMPACT LIQD 1.0 CAL 1,000 ML BAG PEG SCH (13:58)
[2018-08-05] MEDS: cefTRIAXone SODIUM 1,000 MG in DEXTROSE 5% 50 ML IV SCH (13:58)
--- NOTE | 2018-08-05 14:20 | Progress Note ---
DATE: 08/05/2018 PULMONARY MEDICINE PROGRESS NOTE Chart reviewed, the patient examined. SUBJECTIVE: The patient underwent bronchoscopy yesterday with teaming with secretions and mucoid impaction (see operative note). Cultures were sent. I added acetylcysteine to his nebulizer treatments along with 7% normal saline and coupled with aerosolized bronchodilator. The Serratia marcescens growing from tracheal specimen could very well have represented a colonization and I spoke with Dr. Adamson today and we agreed to transition to Keflex while we await cultures. She will place him on a 10-day course. Arrangements were being made with the fdc system concerning placement. He will need [id number] care and frequent suctioning, hopefully less so as the secretions thin out and he can expectorate on his own. At this point in time, I would not consider removing the tracheostomy tube. This patient is extremely fragile and suffers from severe inanition. He has severe end-stage cardiopulmonary disease both from a COPD standpoint and an ejection fraction of only 20%. In that setting, the patient would have to show stability from a cardiopulmonary standpoint, able to ambulate and have low oxygen requirements as well as improved enteral alimentation for nutrition, even consider removal of the tracheostomy tube in my opinion.
[2018-08-06] MEDS: IMPACT LIQD 1.0 CAL 1,000 ML BAG PEG SCH (04:32)
[2018-08-06] MEDS: SODIUM CHLOR 7% 4 ML NEB INH SCH (07:05)
[2018-08-06] MEDS: LEVALBUTEROL HCL 1.25 MG/3 ML NEB INH PRN ×2 (07:06→15:54)
[2018-08-06] MEDS: IPRATROPIUM BROMIDE NEB SOLN 0.02% 2.5 ML VIAL NEB PRN ×2 (07:06→15:54)
[2018-08-06] MEDS: ACETYLCYSTEINE 20% INHAL SOLN ***DISPENSED BY RESP. INH SCH (07:06)
[2018-08-06] MEDS: POT PHOSPHATE MONOBASIC W/ SOD TAB PO SCH (08:21)
[2018-08-06] MEDS: FAMOTIDINE 20 MG TAB PO SCH (08:21)
[2018-08-06] MEDS: FUROSEMIDE 40 MG TAB PO SCH (08:21)
[2018-08-06] MEDS: FLUTICASONE/SALMETEROL (ADVAIR) 500/50 INH 14 PUFF INH SCH (08:21)
[2018-08-06] MEDS: METOPROLOL TARTRATE 50 MG TAB PO SCH (08:21)
[2018-08-06] MEDS: ZINC SULFATE 220 MG CAPSULE PO SCH (08:21)
[2018-08-06] MEDS: SPIRONOLACTONE 25 MG TAB PO SCH (08:21)
[2018-08-06] MEDS: guaiFENesin 200 MG TAB PO SCH ×2 (08:21→14:37)
[2018-08-06] MEDS: MONTELUKAST SODIUM 10 MG TABLET PO SCH (08:21)
[2018-08-06] MEDS: MEGESTROL ACETATE 800 MG/20 ML UDP PO SCH (08:22)
[2018-08-06] MEDS: DOCUSATE SODIUM SYRUP 100 MG/10 ML UDC PO SCH (08:22)
[2018-08-06] MEDS: MULTI VIT W/MINERALS LIQUID 15 ML UDP PO SCH (08:22)
[2018-08-06] MEDS: ASPIRIN 81 MG CHEW NG SCH (08:39)
[2018-08-06] MEDS: ENOXAPARIN INJ 40 MG/0.4 ML SYR SQ SCH (12:01)
[2018-08-06] MEDS: cefTRIAXone SODIUM 1,000 MG in DEXTROSE 5% 50 ML IV SCH (14:38)
--- NOTE | 2018-08-07 07:14 | Discharge Summary ---
Date of Service August 12, 2018 Admission HPI Per Admitting Provider Pt is 62 y/o M with PMH COPD on 3L oxygen NC, HTN, h/o Hepatitis B, cirrhosis, GERD, h/o tobacco abuse presented to ER from [facility] by EMS for respiratory distress. History obtained from prior medical records and ER staff as pt intubated. Reported pt sent to ER for SOB and oxygen sats down to 83% on oxygen. In ER reported that pt lethargic, unresponsive. P: 147, R: 30, BP: 143/96, 97% on ambubag/non-rebreather upon ER arrival. Pt was intubated in ER. Med list sent with pt shows on prednisone 40mg daily, started 07/13/18 for 5 day course. Pt with [facility] admission on 03/19/18-03/26/18 for respiratory failure, pneumonia. Treated with steroids, Levaquin. Discharge Data Consultations 07/14/18 10:26 ED Decision to Admit Stat 07/14/18 10:59 Consult Case Management - Discharge Planning Routine Consult Public Welfare Director Routine Consult Pulmonology Routine 07/15/18 08:27 Consult Cardiology Routine 07/20/18 08:18 Consult Palliative Care Routine 07/23/18 07:54 Consult Gastroenterology Routine Procedures Performed Operation Date: 07/27/18 08:30 Actual Procedures p EGD Gastric Tube Placement - Danilo Staley MD Operation Date: 08/04/18 10:00 Actual Procedures p Bronchoscopy Radiology(Bilateral) - Danilo Mendez MD
--- NOTE | 2018-08-11 22:53 | Discharge Summary ---
Date of Service August 06, 2018 Admission HPI Per Admitting Provider Pt is 62 y/o M with PMH COPD on 3L oxygen NC, HTN, h/o Hepatitis B, cirrhosis, GERD, h/o tobacco abuse presented to ER from [facility] by EMS for respiratory distress. History obtained from prior medical records and ER staff as pt intubated. Reported pt sent to ER for SOB and oxygen sats down to 83% on oxygen. In ER reported that pt lethargic, unresponsive. P: 147, R: 30, BP: 143/96, 97% on ambubag/non-rebreather upon ER arrival. Pt was intubated in ER. Med list sent with pt shows on prednisone 40mg daily, started 07/13/18 for 5 day course. Pt with [facility] admission on 03/19/18-03/26/18 for respiratory failure, pneumonia. Treated with steroids, Levaquin. Admission Exam Per Admitting Provider Pulse 142 H 07/14/18 10:30 Resp 24 07/14/18 09:45 BP 97/73 L 07/14/18 10:31 Pulse Ox 100 07/14/18 10:31 Physical Exam: General: ill appearing male, thin, currently intubated Head: normocephalic, atraumatic Eyes: pupils equal, conjunctiva non-injected ENT: normal inspection external ears, nose, mucous membranes dry Neck: supple, trachea midline Lungs: +intubated, breath sounds present bilaterally, rhonchi CV: tachycardia, rate 146, regular rhythm, no pretibial edema Abd: normal BS, soft Ext: no cyanosis, no erythema Neuro: unresponsive Skin: warm, dry Principal Diagnosis Acute respiratory failure with hypoxia 2/2 COPD exacerbation, acute decompensated biventricular heart failure and pneumonia s/p tracheostomy and PEG elevated troponin 2/2 demand ischemia Sacral Decubitus ulcer Discharge Data Allergies Allergy/AdvReac Type Severity Reaction Status Date / Time No Known Allergies Allergy Unverified 07/14/18 08:44 Consultations 07/14/18 10:26 ED Decision to Admit Stat 07/14/18 10:59 Consult Case Management - Discharge Planning Routine Consult Overseer Kosher Kitchen Routine Consult Pulmonology Routine 07/15/18 08:27 Consult Cardiology Routine 07/20/18 08:18 Consult Palliative Care Routine 07/23/18 07:54 Consult Gastroenterology Routine Procedures Performed Operation Date: 07/27/18 08:30 Actual Procedures p EGD Gastric Tube Placement - Danilo Staley MD Operation Date: 08/04/18 10:00 Actual Procedures p Bronchoscopy Radiology(Bilateral) - Danilo Mendez MD Ordered Studies 07/14/18 10:59 CT chest wo con Stat CT head/brain wo con Stat 07/21/18 07:00 US point of care ultrasound Routine 07/27/18 11:50 US liver Stat 07/27/18 11:52 US abdomen limited Stat Hospital Course (1) Acute respiratory failure with hypoxia: Failed multiple weaning trial from ventilator Status post tracheostomy 07/21/2018 2/2 COPD exacerbation, biventricular heart failure and pneumonia Status post multiple bronchoscopy 07/14/2018 , 07/31/2018 and 08/04 Showed thick secretions /bilateral mucous plugging, cleared with suction (2) Pneumonia: 2/2 Serratia sensitive to Rocephin. Transitioned to Keflex PO on discharge for total 10 day course. (3) Demand ischemia: elevated trop 2/2 demand ischemia (4) Acute systolic CHF (congestive heart failure), NYHA class 2: severe ischemic cardiomyopathy with EF of 20-25%, with global hypokinesis with biventricular heart failure. Cont Lasix 40mg PO daily, Aldactone 25mg PO daily Currently compensated (5) COPD (chronic obstructive pulmonary disease): exacerbation, improved with steroids, nebs. Cont support with chronic oxygen. Total Time Total Time Spent Total Time Spent (In Minutes): 60 Total Time Includes: Examination of the Patient, Discharge Planning, Medication Reconciliation and Communication With Other Providers Discharge Plan Discharge Items [facility] Reason For Visit: RESPIRATORY FAILURE Discharge Diagnosis: Acute respiratory failure with hypoxia 2/2 COPD exacerbation, acute decompensated biventricular heart failure and pneumonia s/p tracheostomy and PEG elevated troponin 2/2 demand ischemia Sacral Decubitus ulcer Discharge Goals: Decrease discomfort, Improve function and Increase independence Activity: Resume your previous activity Non-emergency contact: Primary Care Provider Call non-emergency contact if: you have any medication questions, your symptoms worsen, your pain is not controlled, your pain is worsening, your pain is unusual for you, your pain is concerning for you and you have a fever Follow-up/Referrals: Danilo Mendez MD [Physician] - Diet: Nothing by mouth Diet Comment: tube feeds only Addtl Provider Instructions: Please take all medications as instructed on discharge summary below. A repeat chest xray is recommended in 4 weeks to ensure complete resolution of pneumonia. This may be ordered by your primary care doctor. Your sacral wound needs to be covered with Optifoam and changed every other day and as needed for a soaked through dressing. You will need to be turned and repositioned while in bed every two hours. Tracheostomy site split Lyofoam is to be placed under the tracheostomy collar. This should be changed daily and as needed. Please provide aggressive physical therapy to meet reasonable goals to ambulate and function independently. You will need to use Resource 2.0, FOUR cartons daily to meet your nutritional needs. You will need to follow-up with a Outpatient Scheduler and a Housing Case Manager within 3 months of discharge for monitoring of her chronic conditions. It was a pleasure taking care of you! Please call if you have any questions or problems. You can reach a Orthopaedic Hospitalist on duty at [facility] 24 hours a day by calling [phone]. Take care of yourself. Negin Adamson, DO [facility] Hospitalist Prescriptions: New aspirin 81 mg Tablet,Chewable 81 mg Feeding Tube DAILY Qty: 90 RF: 0 Continued spironolactone [Aldactone] 25 mg Tablet 25 mg feeding tube QAM RF: 0 fluticasone propion-salmeterol [Advair Diskus] 500-50 mcg/dose Blister With Device 1 inh INHALATION BID RF: 0 montelukast [Singulair] 10 mg Tablet 10 mg feeding tube QAM RF: 0 guaifenesin 400 mg Tablet 400 mg PO TID RF: 0 Spiriva with HandiHaler 18 mcg Capsule, W/Inhalation Device 1 cap INHALATION DAILY RF: 0 levalbuterol tartrate [Xopenex HFA] 45 mcg/actuation Hfa Aerosol Inhaler 2 inh INHALATION TID PRN (Reason: Shortness Of Breath Or Wheezing) RF: 0 Discontinued prednisone 20 mg Tablet 40 mg PO DAILY RF: 0 No Action famotidine 20 mg tablet 20 mg feeding tube BID RF: 0 metoprolol tartrate 50 mg tablet 50 mg PO BID RF: 0 ipratropium-albuterol 0.5 mg-3 mg(2.5 mg base)/3 mL solution for nebulization 3 ml INHALATION Q4 RF: 0 zinc sulfate 220 (50) mg capsule 220 mg feeding tube DAILY RF: 0 levofloxacin 500 mg Tablet 500 mg feeding tube DAILY RF: 0 furosemide 10 mg/mL Solution 4 ml feeding tube DAILY RF: 0 Stand-Alone Forms: [facility] Discharge Orders: Discharge Order (Routine); Ordered 08/06/18 Ordered By: Negin Adamson Admission Data Admit Date/Time: 07/14/18 10:11 Attending Provider: Negin Adamson Admit Provider: Grey Lara Primary Care Provider: Shayne SHARMA Other Providers: Arcadio Lima ; Tomas Rivera ; Grey Lara ; Rocco Obrien ; Cele Richardson ; Herminia Jimenez Service: Telemetry Other Interventions: Discharge Summary Assessment (RN) Last Done: 08/06/18 16:02 DC Date/Time DO NOT enter until pt leaves facility: 08/06/18 16:50
== END 2018-08-06 16:50 | DRG 3 ==
LOC: ED 08:07 → 1E 10:03 → SUATTDRO 10:03 → 1E 10:30 → 2W 08-01 12:58

== ENCOUNTER 2018-08-11 22:50 | Inpatient (IN) ==
[2018-08-11] MEDS ORDERED: SODIUM CHLORIDE 0.9% 1000ML 500 ML IV ONE ×2 (23:04→23:59)
[2018-08-11 23:38] LABS: HCO3 ABG 33 mmol/L (19-24); Oxygen Saturation ABG 86.4 % (90-95); PCO2 ABG 49 mmHg (35-46); PO2 ABG 54 mm/Hg (80-95); pH ABG 7.44 (7.35-7.45)
[2018-08-11 23:39] LABS: Allen Test POS (Pos)
[2018-08-11] MEDS ORDERED: ACETAMINOPHEN 1,000 MG/100 ML VIAL IV STA (23:50)
[2018-08-11 23:53] LABS: INR 1.3 (0.9-1.1); Prothrombin Time 12.8 Seconds (9.0-12.0)
[2018-08-12] MEDS ORDERED: PIPERACILLIN/TAZOBACTAM 4.5 GM/120 ML BAG IV ONE
[2018-08-12] MEDS ORDERED: VANCOMYCIN HCL 1,000 MG in SODIUM CHLORIDE 0.9% 500 ML IV ONE
[2018-08-12 00:01] LABS: Alanine Aminotransferase 62 U/L (12-78); Albumin Level 1.7 gm/dl (3.4-5.0); Aspartate Aminotransferase 35 U/L (15-37); BUN Creatinine Ratio 42.2 (10-20); Bilirubin Direct 0.2 mg/dl (0-0.2); Blood Urea Nitrogen 21 mg/dl (7-18); Calcium 8.4 mg/dl (8.5-10.1); Carbon Dioxide 34 mmol/L (21-32); Chloride 86 mmol/L (98-107); Est GFR (African American) 133.7; Est GFR (Non-African American) 115.3; Glucose 110 mg/dl (70-99); Magnesium 1.6 mg/dl (1.8-2.4); Potassium 3.8 mmol/L (3.5-5.1); Sodium 126 mmol/L (136-145)
[2018-08-12 00:06] LABS: Alkaline Phosphatase 119 U/L (45-117); Bilirubin,Total 0.4 mg/dl (0.2-1); Hematocrit (blood only) 28.2 % (42-52); Hemoglobin 9.6 g/dL (14.0-18.0); Mean Corpuscular Volume 87.6 fL (80-100); Mean Platelet Volume 8.8 fL (7.4-10.4); NT Pro B Type Natriuretic Pept 1050 pg/ml (0-900); Platelet Count 255 K/uL (130-400); RDW Coefficient of Variation 14.6 % (11.5-14.5); RDW Standard Deviation 46.8 fL (36.4-46.3); Red Blood Count 3.22 M/uL (4.7-6.1); Total Protein 6.9 gm/dl (6.4-8.2); Troponin I < 0.015 ng/ml (0-0.045); White Blood Count 36.05 K/uL (4.8-10.8)
[2018-08-12 00:07] LABS: Basophils # (auto) 0.04 K/uL (0-0.2); Basophils % (auto) 0.1 %; Dohle Bodies 1+; Immature Granulocytes # (auto) 0.58 K/uL (0.00-0.02); Immature Granulocytes % (auto) 1.6 %; Lymphocytes # (auto) 2.45 K/uL (1.2-3.4); Lymphocytes % (auto) 6.8 %; Monocytes # (auto) 2.14 K/uL (0.11-0.59); Monocytes % (auto) 5.9 %; Neutrophils # (auto) 30.84 K/uL (1.4-6.5); Neutrophils % (auto) 85.6 %; Platelet Estimate Normal (Normal); Toxic Vacuolation 1+
[2018-08-12] MEDS ORDERED: SODIUM CHLORIDE 0.9% 1000ML 500 ML IV ONE (00:17)
[2018-08-12] MEDS ORDERED: AMIODARONE / D5W 150 MG/100 ML BAG IV STA (00:56)
[2018-08-12] MEDS ORDERED: AMIODARONE IV BOLUS / DRIP IV STA (00:56)
[2018-08-12] MEDS ORDERED: AMIODARONE / D5W 360 MG/200 ML BAG IV SCH ×2 (01:00→06:56)
--- NOTE | 2018-08-12 01:54 | Emergency Department Note ---
Entered by Wang Shaw acting as a scribe for ED Provider Note CC: Shortness of breath HPI: 62 y/o male arrives for evaluation of constant shortness of breathe via EMS. The patient states he does not have pain, he just cannot breathe. Nursing staff notes the patient is coughing up a large amount of phlegm. The patient was in the hospital for the past month for pneumonia with respiratory failure CHF with an EF of 20%. He had a tracheostomy and PEG tube placed during his stay. His tracheostomy was ventilated for a month and required multiple bronchs. His most recent was last week and had a large amount of secretions removed. He had worsening shortness of breath today with an increasing heart rate, hypoxia, and hypotension. ROS: See above HPI for pertinent positives & negatives. A total of 10 systems reviewed and were otherwise negative. Past Medical History: COPD, HTN, GERD, Cirrhosis, Heptatitis B Past Surgical History: Tracheostomy placed. Family History: Diabetes, heart disease, kidney disease Social History: Lives in senior living Home Medications: Aspirin Allergies: No known allergies Physical: Vitals: BP 85/61, R 25, P 122, O2 88% on 10L, T 38C Exam: GENERAL: Patient is severely dry and severely unwell appearing. In severe acute distress. Cachectic. EYES: No scleral icterus, unremarkable pupils. ENT: Mucous membranes dry, no nasal congestion. NECK: No masses appreciated, no meningismus, trachea is midline. RESPIRATORY: Dyspneic. Tachypneic. Loud and junky breath sounds with trach. Diffuse crackles in all lung huertas. CARDIOVASCULAR: Tachycardic rate and regular rhythm. No murmurs, rubs, gallops appreciated. Thready distal pulses. GASTROINTESTINAL: Abdomen soft, non-tender, no peritonitis. Bowel sounds positive. No masses appreciated. PEG tube in mid abdomen. BACK: No midline tenderness, no CVA tenderness EXTREMITIES: Normal motion all extremities, no cyanosis, no edema. NEUROLOGIC: Alert and oriented, no acute motor or sensory deficits, no focal weakness, cranial nerves grossly intact. SKIN: No rash, no jaundice, no diaphoresis. Poor skin turgor with dry skin. ED Course: 2300: Past medical records reviewed. The patient was evaluated in room C06, and a complete history and physical examination were performed. 2311: The patient was taken of oxygen to readjust his trach. His O2Sat dropped to the 70s. Deep suction allowed minor improvement. Replaced the FIO2 to 100% with sats in the upper 80s. At this time I discussed the patient's Living Will. He would like everything done to keep him alive. 2359: 500mL of IV fluids have been given. He is still hypotensive and tachycardic. He notes breathing has improved. Now febrile and antipyretics were ordered. I reevaluated the patient and discussed the findings with he. He verbalized agreement to a hospitalist evaluation and the treatment plan. The patient will be evaluated for further management and care. 0018: [facility]: [facility] He will evaluate the patient for further management. 0027: The patient's blood pressure is improving with fluid boluses. His HR is also improving. 0033: The patient just went into a-fib with RVR. 0035: Pt's BP is stable at 104/68. 0050: Pt's BP continues to drop. Paged critical care. 0058: I reviewed the patient's case with Dr. Lima, [facility]. He recommended the patient receive an amiodarone bolus and admit him to the ICU. He accepted the patient to the ICU. 0059: The patient continues to deny chest pain on reevaluation. Prior Medical Record, Triage/Nursing Notes, Medications reviewed by Me Labs reviewed and remarkable for elevated WBC, hyponatremia Vital Signs reviewed and remarkable for Hypotensive, tachycardic, tachypneic, hypoxia Imaging: X ray results are stated below per my interpretation: Chest: 1 view: Large left lung infiltrate greatly increased from CXR last week. Questionable left lower effusion. EKG: #1: Sinus Tach 120 bpm without ectopy. There are large P waves. No overt isc hemia. Similar though increased rate compared to previous. QTC 392. #2: Atrial Fibrillation with RVR at 144 bpm with no ischemic changes. New rhythm from previous EKG. Cons[facility], [facility] Blood pressure: Low - [facility] Disposition: Hospitalization Differentials: Infectious, Reactive Airway Disease, Pneumonia, Pneumothorax, COPD, CHF, ACS, Pulmonary Embolism, MSK, GI, Dissection, Mucus Plugging, amongst other etiologies entertained. Medical Decision Makin yr old male with worsening shortness of breath over last few hours. Patient with prolonged hospitalization over last month due to Pneumonia, CHF and persistent mucous plugging who has had Trach/Peg on previous admission. On keflex with worsening symptoms this evening at senior living. Arrives tachy, febrile, hypotensive and hypoxic with large left pneumonia on CXR. Respiratory at bedside and deep suction with modest improvement in symptoms. He has WBC 30s and is clearly septic shock. Fortunately at this time Lactate and ABG are holding steady. NSS boluses for resus watched very closely given his known heart failure. BP trending up with 30ml/kg IV fluids (1500ml NSS Bolus + fluids in meds). HR and BP improving. Patient then flipped to afib RVR. BP starting to drop again and reviewed with CCM who know patient well. Amio suggested which was started with improvement in BP. Hold on further fluids nor need for pressors at this time given adequate MAP. He was not having Chest Pain and given known sepsis I did not feel electro-cardioversion indicated at this time. Hyponatremia noted on labs consistent with the cachexia and dehydration by initial exam. Hospitalist in to evaluate patient for further management. Impression: Septic Shock Pneumonia involving Left Lung Acute Hyponatremia Atrial Fibrillation with Rapid Ventricular Response Critical Care Time: I have personally spent greater than 45 minutes of critical care time in the direct management of this patient. Septic Shock with hypotension, hypoxia, tachycardia due to left lung pneumonia requiring fluid resus and empiric abx treatment who developed Afib RVR requiring Amiodarone IV while in ED. This includes bedside care, interpretation of diagnostic studies, and testing, discussion with consultants, patient, and family members, and other required patient management activities. This 45 minutes is in excess of all separately billable procedures. Impression & Plan Septic shock, Pneumonia involving left lung, Acute hyponatremia, Atrial fibrillation with rapid ventricular response Past Med/Surg History Medical History Tobacco use (Chronic) GERD (gastroesophageal reflux disease) (Chronic) Cirrhosis (Chronic) Hepatitis B (Chronic) COPD (chronic obstructive pulmonary disease) (Acute) HTN (hypertension) (Chronic) Pneumonia (Resolved) Tachycardia (Resolved) COPD exacerbation (Resolved) Acute respiratory failure with hypoxia (Acute) COPD (chronic obstructive pulmonary disease) Cirrhosis of liver GERD (gastroesophageal reflux disease) History of hepatitis B Hypertension Tobacco abuse Surgical History Tracheostomy present Family History Other Diabetes Heart disease Kidney disease Social History Preferred Language: Portuguese Beliefs That Will Affect Care: Congregational Current [facility] Feels Safe at Home: Yes Smoking Status: Former smoker Hx Alcohol Use: No Hx Substance Use: No Results & Data Vital Signs Vital Signs - 24 hr 08/11/18 22:52 08/11/18 22:57 08/11/18 22:58 Temperature 36.3 C L Temperature Source Oral Rectal Temperature Sepsis Recent Fever Within 48 Hours No Sepsis New/Unexplained Change in Mental Status No Sepsis Action Taken by Nursing No Action Required Pulse Rate 122 H 125 H 128 H Pulse Rate from SpO2 Sensor 126 H 128 H Pulse Rhythm Regular Respiratory Rate 25 H 25 H 23 Respiratory Effort / Characteristics Spontaneous Labored Blood Pressure 85/61 L 82/57 L Blood Pressure Mean 69 65 Blood Pressure Position Sitting Pulse Oximetry 88 L 87 L 88 L Oxygen Delivery Method Trach Collar Trach Collar Trach Collar Oxygen Flow Rate 10 10 10 Fraction of Inspired Oxygen 50 50 50 SaO2/FiO2 Ratio 176 08/11/18 23:00 08/11/18 23:06 08/11/18 23:31 Temperature Temperature Source Rectal Temperature Sepsis Recent Fever Within 48 Hours Sepsis New/Unexplained Change in Mental Status Sepsis Action Taken by Nursing Pulse Rate 121 H 117 H Pulse Rate from SpO2 Sensor 121 H 117 H Pulse Rhythm Respiratory Rate 26 H 49 H Respiratory Effort / Characteristics Blood Pressure 85/61 L 82/63 L Blood Pressure Mean 69 69 Blood Pressure Position Pulse Oximetry 91 88 L 87 L Oxygen Delivery Method Trach Collar Trach Collar Trach Collar Oxygen Flow Rate 10 10 10 Fraction of Inspired Oxygen 50 50 50 SaO2/FiO2 Ratio 08/11/18 23:50 08/12/18 00:00 08/12/18 00:15 Temperature 38.3 C H Temperature Source Rectal Rectal Temperature Sepsis Recent Fever Within 48 Hours Sepsis New/Unexplained Change in Mental Status Sepsis Action Taken by Nursing Pulse Rate 116 H 108 H Pulse Rate from SpO2 Sensor 116 H 108 H Pulse Rhythm Respiratory Rate 19 40 H Respiratory Effort / Characteristics Blood Pressure 96/58 L 98/63 L Blood Pressure Mean 70 74 Blood Pressure Position Pulse Oximetry 86 L 92 Oxygen Delivery Method Trach Collar Trach Collar Oxygen Flow Rate 10 10 Fraction of Inspired Oxygen 50 50 SaO2/FiO2 Ratio 08/12/18 00:30 08/12/18 00:45 08/12/18 01:00 Temperature Temperature Source Rectal Temperature Sepsis Recent Fever Within 48 Hours Sepsis New/Unexplained Change in Mental Status Sepsis Action Taken by Nursing Pulse Rate 149 H 166 H 168 H Pulse Rate from SpO2 Sensor 137 H 150 H 153 H Pulse Rhythm Respiratory Rate 38 H 16 14 Respiratory Effort / Characteristics Blood Pressure 104/64 85/67 L Blood Pressure Mean 77 73 Blood Pressure Position Pulse Oximetry 90 91 89 L Oxygen Delivery Method Trach Collar Trach Collar Oxygen Flow Rate 10 10 Fraction of Inspired Oxygen 50 50 SaO2/FiO2 Ratio 08/12/18 01:01 08/12/18 01:02 08/12/18 01:15 Temperature Temperature Source Rectal Temperature Sepsis Recent Fever Within 48 Hours Sepsis New/Unexplained Change in Mental Status Sepsis Action Taken by Nursing Pulse Rate 172 H 158 H 146 H Pulse Rate from SpO2 Sensor 183 H 151 H 148 H Pulse Rhythm Respiratory Rate 24 18 22 Respiratory Effort / Characteristics Blood Pressure 89/57 L Blood Pressure Mean 67 Blood Pressure Position Pulse Oximetry 89 L 87 L 87 L Oxygen Delivery Method Trach Collar Trach Collar Trach Collar Oxygen Flow Rate 10 10 10 Fraction of Inspired Oxygen 50 50 50 SaO2/FiO2 Ratio 08/12/18 01:16 08/12/18 01:29 08/12/18 01:31 Temperature Temperature Source Rectal Temperature 37.4 C Sepsis Recent Fever Within 48 Hours Sepsis New/Unexplained Change in Mental Status Sepsis Action Taken by Nursing Pulse Rate 167 H 135 H 147 H Pulse Rate from SpO2 Sensor 170 H 130 H 119 H Pulse Rhythm Respiratory Rate 26 H 18 27 H Respiratory Effort / Characteristics Blood Pressure 86/55 L 75/50 L 94/53 L Blood Pressure Mean 65 58 66 Blood Pressure Position Pulse Oximetry 89 L 90 89 L Oxygen Delivery Method Trach Collar Trach Collar Trach Collar Oxygen Flow Rate 10 10 10 Fraction of Inspired Oxygen 50 50 50 SaO2/FiO2 Ratio 08/12/18 01:32 08/12/18 01:45 08/12/18 02:00 Temperature Temperature Source Rectal Temperature Sepsis Recent Fever Within 48 Hours Sepsis New/Unexplained Change in Mental Status Sepsis Action Taken by Nursing Pulse Rate 143 H 114 H 104 H Pulse Rate from SpO2 Sensor 133 H 114 H 106 H Pulse Rhythm Respiratory Rate 36 H 26 H 32 H Respiratory Effort / Characteristics Blood Pressure 86/53 L 88/56 L Blood Pressure Mean 64 66 Blood Pressure Position Pulse Oximetry 88 L 91 92 Oxygen Delivery Method Trach Collar Trach Collar Trach Collar Oxygen Flow Rate 10 10 10 Fraction of Inspired Oxygen 50 50 50 SaO2/FiO2 Ratio 08/12/18 02:01 Temperature Temperature Source Rectal Temperature Sepsis Recent Fever Within 48 Hours Sepsis New/Unexplained Change in Mental Status Sepsis Action Taken by Nursing Pulse Rate 105 H Pulse Rate from SpO2 Sensor 105 H Pulse Rhythm Respiratory Rate 31 H Respiratory Effort / Characteristics Blood Pressure Blood Pressure Mean Blood Pressure Position Pulse Oximetry 92 Oxygen Delivery Method Trach Collar Oxygen Flow Rate 10 Fraction of Inspired Oxygen 50 SaO2/FiO2 Ratio Home Medications Current Medication List: was personally reviewed by me Laboratory Data Attestation: I reviewed the patient's lab results. Result diagrams: 08/11/18 23:33 08/11/18 23:33 Lab Results 08/11/18 08/11/18 08/11/18 Range/Units 23:25 23:25 23:33 WBC 36.05 H* (4.8-10.8) K/uL RBC 3.22 L (4.7-6.1) M/uL Hgb 9.6 L (14.0-18.0) g/dL Hct 28.2 L (42-52) % MCV 87.6 (80-100) fL MCH 29.8 (25-34) pg MCHC 34.0 (32-36) g/dL RDW Std Deviation 46.8 H (36.4-46.3) fL RDW Coeff of Leann 14.6 H (11.5-14.5) % Plt Count 255 (130-400) K/uL MPV 8.8 (7.4-10.4) fL Immature Gran % (Auto) 1.6 % Neut % (Auto) 85.6 % Lymph % (Auto) 6.8 % [place] % (Auto) 5.9 % Eos % (Auto) 0.0 % Baso % (Auto) 0.1 % Immature Gran # (Auto) 0.58 H (0.00-0.02) K/uL Neut # (Auto) 30.84 H (1.4-6.5) K/uL Lymph # (Auto) 2.45 (1.2-3.4) K/uL [place] # (Auto) 2.14 H (0.11-0.59) K/uL Eos # (Auto) 0.00 (0-0.5) K/uL Baso # (Auto) 0.04 (0-0.2) K/uL Toxic Vacuolation 1+ Dohle Bodies 1+ Platelet Estimate Normal (Normal) PT (9.0-12.0) Seconds INR (0.9-1.1) ABG pH 7.44 (7.35-7.45) ABG pCO2 49 H (35-46) mmHg ABG pO2 54 L (80-95) mm/Hg ABG HCO3 33 H (19-24) mmol/L ABG O2 Saturation 86.4 L (90-95) % ABG Base Excess 7.8 H (-9-1.8) mEq/L [place] Test POS (Pos) Barometric Pressure 740.2 mm/Hg Oxygen Given 10 L Sodium (136-145) mmol/L Potassium (3.5-5.1) mmol/L Chloride (98-107) mmol/L Carbon Dioxide (21-32) mmol/L Anion Gap (3-11) BUN (7-18) mg/dl Creatinine (0.6-1.4) mg/dl Est Cr Clr Drug Dosing Est GFR ( Amer) Est GFR (Non-Af Amer) BUN/Creatinine Ratio (10-20) Glucose (70-99) mg/dl Lactate 0.9 (0.4-2.0) mmol/L Calcium (8.5-10.1) mg/dl Magnesium (1.8-2.4) mg/dl Total Bilirubin (0.2-1) mg/dl Direct Bilirubin (0-0.2) mg/dl AST (15-37) U/L ALT (12-78) U/L Alkaline Phosphatase (45-117) U/L Troponin I (0-0.045) ng/ml NT-Pro-B Natriuret Pep (0-900) pg/ml Total Protein (6.4-8.2) gm/dl Albumin (3.4-5.0) gm/dl 08/11/18 08/11/18 Range/Units 23:33 23:33 WBC (4.8-10.8) K/uL RBC (4.7-6.1) M/uL Hgb (14.0-18.0) g/dL Hct (42-52) % MCV (80-100) fL MCH (25-34) pg MCHC (32-36) g/dL RDW Std Deviation (36.4-46.3) fL RDW Coeff of Leann (11.5-14.5) % Plt Count (130-400) K/uL MPV (7.4-10.4) fL Immature Gran % (Auto) % Neut % (Auto) % Lymph % (Auto) % [place] % (Auto) % Eos % (Auto) % Baso % (Auto) % Immature Gran # (Auto) (0.00-0.02) K/uL Neut # (Auto) (1.4-6.5) K/uL Lymph # (Auto) (1.2-3.4) K/uL [place] # (Auto) (0.11-0.59) K/uL Eos # (Auto) (0-0.5) K/uL Baso # (Auto) (0-0.2) K/uL Toxic Vacuolation Dohle Bodies Platelet Estimate (Normal) PT 12.8 H (9.0-12.0) Seconds INR 1.3 H (0.9-1.1) ABG pH (7.35-7.45) ABG pCO2 (35-46) mmHg ABG pO2 (80-95) mm/Hg ABG HCO3 (19-24) mmol/L ABG O2 Saturation (90-95) % ABG Base Excess (-9-1.8) mEq/L [place] Test (Pos) Barometric Pressure mm/Hg Oxygen Given Sodium 126 L (136-145) mmol/L Potassium 3.8 (3.5-5.1) mmol/L Chloride 86 L (98-107) mmol/L Carbon Dioxide 34 H (21-32) mmol/L Anion Gap 6.0 (3-11) BUN 21 H (7-18) mg/dl Creatinine 0.50 L (0.6-1.4) mg/dl Est Cr Clr Drug Dosing Not Reportable Est GFR ( Amer) 133.7 Est GFR (Non-Af Amer) 115.3 BUN/Creatinine Ratio 42.2 H (10-20) Glucose 110 H (70-99) mg/dl Lactate (0.4-2.0) mmol/L Calcium 8.4 L (8.5-10.1) mg/dl Magnesium 1.6 L (1.8-2.4) mg/dl Total Bilirubin 0.4 (0.2-1) mg/dl Direct Bilirubin 0.2 (0-0.2) mg/dl AST 35 (15-37) U/L ALT 62 (12-78) U/L Alkaline Phosphatase 119 H (45-117) U/L Troponin I < 0.015 (0-0.045) ng/ml NT-Pro-B Natriuret Pep 1050 H (0-900) pg/ml Total Protein 6.9 (6.4-8.2) gm/dl Albumin 1.7 L (3.4-5.0) gm/dl Administered Medications Vancomycin HCl 1,000 mg/ (Sodium Chloride) 520 mls @ 200 mls/hr IV NOW ONE Stop: 08/12/18 02:35 Last Admin: 08/12/18 00:16 Dose: 200 mls/hr Documented by: [id number] Amiodarone HCl/Dextrose (Nexterone / D5w) 360 mg in 200 mls @ 33.333 mls/hr IV .Q6H SIENNA Stop: 08/12/18 06:59 Last Admin: 08/12/18 01:29 Dose: 1 mg/min, 33.3 mls/hr Documented by: [id number] Cosigned by: [id number] Discontinued Medications Amiodarone HCl (Cordarone Iv Bolus / Drip) 1 ea IV NOW STA; Protocol Stop: 08/12/18 00:57 Last Admin: 08/12/18 01:35 Dose: Not Given Documented by: [id number] Sodium Chloride (Nss 1000ml) 500 mls @ 999 mls/hr IV .Q31M ONE Stop: 08/11/18 23:34 Last Infusion: 08/12/18 00:03 Dose: 0 mls/hr Documented by: [id number] Admin: 08/11/18 23:40 Dose: 999 mls/hr Documented by: [id number] Acetaminophen (Ofirmev) 1,000 mg in 100 mls @ 400 mls/hr IV NOW STA Stop: 08/12/18 00:04 Last Infusion: 08/12/18 00:22 Dose: 0 mls/hr Documented by: [id number] Admin: 08/12/18 00:04 Dose: 400 mls/hr Documented by: [id number] Sodium Chloride (Nss 1000ml) 500 mls @ 999 mls/hr IV .Q31M ONE Stop: 08/12/18 00:29 Last Infusion: 08/12/18 00:36 Dose: 0 mls/hr Documented by: [id number] Admin: 08/12/18 00:04 Dose: 999 mls/hr Documented by: [id number] Piperacillin Sod/Tazobactam Sod (Zosyn) 4.5 gm in 120 mls @ 240 mls/hr IV NOW ONE Stop: 08/12/18 00:29 Last Infusion: 08/12/18 01:02 Dose: 0 mls/hr Documented by: [id number] Infusion: 08/12/18 00:46 Dose: 0 mls/hr Documented by: [id number] Admin: 08/12/18 00:16 Dose: 240 mls/hr Documented by: [id number] Sodium Chloride (Nss 1000ml) 500 mls @ 999 mls/hr IV .Q31M ONE Stop: 08/12/18 00:47 Last Infusion: 08/12/18 01:02 Dose: 0 mls/hr Documented by: [id number] Admin: 08/12/18 00:36 Dose: 999 mls/hr Documented by: [id number] Amiodarone HCl/Dextrose (Nexterone / D5w) 150 mg in 100 mls @ 600 mls/hr IV ONE STA Stop: 08/12/18 01:05 Last Infusion: 08/12/18 01:25 Dose: 0 mls/hr Documented by: [id number] Cosigned by: [id number] Admin: 08/12/18 01:13 Dose: 600 mls/hr Documented by: [id number] Cosigned by: [id number] Blood Pressure Blood Pressure Findings: Low blood pressure Blood Pressure Disposition: further management by hospitalist Discharge Plan Visit Data Chief Complaint: Shortness of Breath/Dyspnea Stated Complaint: SOB ED Provider: Guanako Hamilton Discharge Problem: Septic shock, Pneumonia involving left lung, Acute hyponatremia, Atrial fibrillation with rapid ventricular response Patient Disposition: Being Evaluated by Hospitalist Forms Stand Alone Forms: My [facility] Prescriptions Prescriptions: No Action spironolactone [Aldactone] 25 mg Tablet 25 mg feeding tube QAM RF: 0 fluticasone propion-salmeterol [Advair Diskus] 500-50 mcg/dose Blister With Device 1 inh INHALATION BID RF: 0 montelukast [Singulair] 10 mg Tablet 10 mg feeding tube QAM RF: 0 guaifenesin 400 mg Tablet 400 mg PO TID RF: 0 Spiriva with HandiHaler 18 mcg Capsule, W/Inhalation Device 1 cap INHALATION DAILY RF: 0 levalbuterol tartrate [Xopenex HFA] 45 mcg/actuation Hfa Aerosol Inhaler 2 inh INHALATION TID PRN (Reason: Shortness Of Breath Or Wheezing) RF: 0 aspirin 81 mg Tablet,Chewable 81 mg Feeding Tube DAILY Qty: 90 RF: 0 famotidine 20 mg tablet 20 mg feeding tube BID RF: 0 metoprolol tartrate 50 mg tablet 50 mg PO BID RF: 0 ipratropium-albuterol 0.5 mg-3 mg(2.5 mg base)/3 mL solution for nebulization 3 ml INHALATION Q4 RF: 0 zinc sulfate 220 (50) mg capsule 220 mg feeding tube DAILY RF: 0 levofloxacin 500 mg Tablet 500 mg feeding tube DAILY RF: 0 furosemide 10 mg/mL Solution 4 ml feeding tube DAILY RF: 0 Referrals Referrals: Shayne SHARMA [Primary Care Provider] - Discharge Problem: Pneumonia involving left lung Qualifiers: Pneumonia type: due to unspecified organism Lung location: lower lobe of lung Qualified Code(s): J18.1 - Lobar pneumonia, unspecified organism The scribe's documentation has been prepared under my direction and personally reviewed by me in its entirety. I confirm that the note above accurately reflects all work, treatment, procedures, and medical decision making performed by me.
--- NOTE | 2018-08-12 02:46 | History and Physical Report ---
DATE OF ADMISSION: 08/12/2018 CHIEF COMPLAINT: Shortness of breath. HISTORY OF PRESENT ILLNESS: This is a 62-year-old male with past medical history significant for end-stage COPD; Biventricular heart failure, EF of 20%; hypertension; history of hepatitis B; cirrhosis; GERD; history of tobacco abuse. Presents with shortness of breath. The patient was recently in the hospital from 07/14/2018 to 08/06/2018 with respiratory failure requiring intubation and difficult to wean and ended up having tracheostomy and PEG tube placement and pulmonary stated he needs to be on long-term trach because he was very weak and he was not able to ambulate, and they discharged him back to snf, currently at [facility]. He says with his trach, he is not able to talk and still weak and not able to talk. On PEG, still on tube feeds, Today he was having lot of cough with lot of phlegm and as his oxygen sats were going down, so he was brought into the ER. In the ER, he was having temp spikes with rapid AFib, blood pressure on the lower side. His white count on discharge was 9,000, today is 36,000. The lactic acid is okay at 0.9. Sodium is low at 126. Currently starting on amiodarone drip for his rapid AFib. The patient denies any chest pain. Denies any headaches, no nausea, no abdominal pain. Seems to be having normal bowel and bladder movements. He is not able to talk, he is writing on paper. He is not complaining of anything else. ALLERGIES: No known drug allergies. PAST MEDICAL HISTORY: As mentioned above. FAMILY HISTORY: Significant for diabetes, heart disorder, and kidney disease. SOCIAL HISTORY: Currently coming from snf. Smokes every day. No alcohol use. No substance abuse. REVIEW OF SYSTEMS: As per HPI, could not get complete review of systems as patient could not talk. MEDICATIONS: All the medications through feeding tube, aspirin 81 mg daily, famotidine 20 mg b.i.d., Advair Diskus one inhalation b.i.d., Lasix 4 mL daily, guaifenesin 400 mg t.i.d., DuoNebs every 4 hours, Xopenex HFA 2 inhalations t.i.d. p.r.n., metoprolol 50 mg p.o. b.i.d., Singulair 10 mg daily, Spiriva with inhaler 1 inhalation daily, spironolactone 25 mg p.o. daily, zinc sulfate 220 mg p.o. daily. PHYSICAL EXAMINATION: GENERAL: Patient is alert and awake, not in acute distress. VITAL SIGNS: Temperature 38.3, pulse 143, respiratory rate in 30s, blood pressure 94/53, oxygen 88% on trach collar 10 L, 50% FiO2. HEENT: No pallor, no icterus. Pupils equal, round, and reactive to light. Tracheostomy seen. Lot of mucus seen on the trach collar. CARDIOVASCULAR: S1, S2 heard. Tachycardia. Regular rhythm. No murmurs. RESPIRATORY SYSTEM: Normal AP diameter, mild tachypnea, mild occasional wheezing, no crackles. ABDOMEN: Soft, bowel sounds present, nontender. PEG tube seen. PEG tube site has no erythema, no drainage seen. CENTRAL NERVOUS SYSTEM: Alert and awake. Cannot talk because of trach. Obeys simple commands. Moves extremities. EXTREMITIES: No edema, no erythema seen. LABORATORIES: WBC 36, hemoglobin 10.6, hematocrit 28.2, platelets 255. PT 12.8, INR 1.3, PH 7.4, pCO2 of 49, pO2 of 54, bicarbonate 33, oxygen 86%. Sodium 126, potassium 3.8, chloride 86, bicarbonate 34, BUN 21, creatinine 0.5, serum glucose 110. Lactate 0.9, magnesium 1.6, total bilirubin 0.4, direct bilirubin 0.2, AST 35, ALT 62, alkaline phosphatase 119. Troponin I less than 0.015. BNP 1050. IMAGING DATA: Chest x-ray, left middle and lower lobe pneumonia. EKG: Rapid AFib at a rate of 146. ASSESSMENT AND PLAN: This is a 62-year-old male who was recently in the hospital for acute respiratory failure from chronic obstructive pulmonary disease, pneumonia, congestive heart failure. Presents with respiratory distress, pneumonia and sepsis and rapid atrial fibrillation. 1. Respiratory distress secondary to recurrent pneumonia, chronic obstructive pulmonary disease exacerbation. The patient is still on trach from last admission, currently on 10 liters of 50% FIO2, saturating 88%, which we will continue. Patient is DNR. Patient will continue his nebs. IV Solu-Medrol 40 t.i.d. Placed him on antibiotics vancomycin and Zosyn. Lactate is okay. Closely monitor in the ICU.Follow cultures. 2. Sepsis mostly from pneumonia. We will follow the cultures. Placed him on IV vancomycin and Zosyn. Lactate is fine. Meets Sepsis criteria with tachycardia, hypotension, and fever. We will place him on gentle fluids, cannot do aggressive fluids because of his history of congestive heart failure. Will closely monitor. 3. Rapid atrial fibrillation, possible new onset from ongoing respiratory issues. Because of borderline blood pressure, starting on amiodarone drip. Closely monitor in the ICU. We will consult cardiology in the a.m. 4. History of biventricular heart failure, EF of around 20%. Holding the diuretics secondary to his sepsis. Placed him on gentle fluids. We will monitor for any volume overload. 5. Hyponatremia, presently with sodium of 126. Last sodium was 131 in last admission. Getting gentle fluids. Holding diuretics. We will follow the labs in the a.m. 6. Hypomagnesemia. We will replace. 7. Gastroesophageal reflux disease, continue his PPI. 8. History of hypertension, on Lopressor with holding parameters. 9. Deep vein thrombosis prophylaxis. We will place him on sequential compression devices for now. 10. Disposition: Closely monitor in the ICU. Code status DNR. Total critical care time 40 minutes. MTDD
[2018-08-12] MEDS ORDERED: LEVALBUTEROL TARTRATE 15 GM HFA.AER.AD INH PRN (03:20)
[2018-08-12] MEDS ORDERED: PIPERACILL/TAZOBAC CONSULT ACTIVE PRN ×2 (03:20)
[2018-08-12] MEDS ORDERED: VANCOMYCIN CONSULT ACTIVE PRN ×2 (03:20)
[2018-08-12] MEDS ORDERED: VANCOMYCIN HCL 1,000 MG in SODIUM CHLORIDE 0.9% 250 ML IV SCH (03:20)
[2018-08-12] MEDS ORDERED: ICU PROTOCOL FOR HYPERGLYCEMIA PRN (03:20)
[2018-08-12] MEDS ORDERED: methylPREDNISolone 40 MG in SYRINGE 0 ML IV SCH ×2 (03:20→04:00)
[2018-08-12] MEDS: SODIUM CHLORIDE 0.9% 1000ML 1,000 ML IV SCH (03:41)
[2018-08-12] MEDS: MAGNESIUM SULFATE / D5W 1 GM/100 ML BAG IV SCH ×2 (03:41→04:34)
[2018-08-12] MEDS: ALBUT/IPRATROP 3MG/0.5MG NEB 3 ML VIAL INH SCH ×6 (03:56→23:27)
[2018-08-12 05:11] LABS: Hematocrit (blood only) 27.2 % (42-52); Hemoglobin 9.2 g/dL (14.0-18.0); Mean Corpuscular Hgb Conc 33.8 g/dL (32-36); Mean Corpuscular Volume 87.7 fL (80-100); Mean Platelet Volume 9.2 fL (7.4-10.4); Platelet Count 231 K/uL (130-400); RDW Coefficient of Variation 14.9 % (11.5-14.5); RDW Standard Deviation 47.7 fL (36.4-46.3); White Blood Count 26.61 K/uL (4.8-10.8)
[2018-08-12 05:43] LABS: Basophils # (auto) 0.03 K/uL (0-0.2); Basophils % (auto) 0.1 %; Dohle Bodies Occasional; Immature Granulocytes # (auto) 0.41 K/uL (0.00-0.02); Immature Granulocytes % (auto) 1.5 %; Lymphocytes # (auto) 1.73 K/uL (1.2-3.4); Lymphocytes % (auto) 6.5 %; Monocytes # (auto) 1.69 K/uL (0.11-0.59); Monocytes % (auto) 6.4 %; Neutrophils # (auto) 22.75 K/uL (1.4-6.5); Neutrophils % (auto) 85.5 %; Toxic Vacuolation 1+
[2018-08-12 05:50] LABS: BUN Creatinine Ratio 42.7 (10-20); Calcium 7.5 mg/dl (8.5-10.1); Creatinine Clr Calc Pharmacy 154.8 ml/min; Est GFR (African American) 146.5; Est GFR (Non-African American) 126.4; Magnesium 2.3 mg/dl (1.8-2.4); Potassium 3.7 mmol/L (3.5-5.1)
[2018-08-12 05:51] LABS: Phosphorus 3.1 mg/dl (2.5-4.9)
[2018-08-12] MEDS: PIPERACILLIN/TAZOBACTAM 4.5 GM in DEXTROSE 5% 100 ML IV SCH ×3 (05:55→21:45)
--- NOTE | 2018-08-12 07:14 | XRay Report ---
XR chest 1V portable HISTORY: Respiratory Failure COMPARISON: Chest 07/29/2018. FINDINGS: Tracheostomy tube is in good position. No pneumothorax. Advanced emphysema. The heart is no rmal in size. The right lung is essentially clear. Improved aeration within the right lung apex with a few linear scarlike densities remaining. Interval progression of the left mid to lower lung zone ai rspace opacity and small left pleural effusion. IMPRESSION: Interval progression of the left mid to lower lung zone airspace opacity and small left pleural effus ion. This likely represents a pneumonia could be due to aspiration. Electronically signed by: Mike Whittaker M.D. 08/12/2018 7:12 AM
[2018-08-12] MEDS ORDERED: VANCOMYCIN HCL 1,000 MG in SODIUM CHLORIDE 0.9% 250 ML IV ONE (07:30)
[2018-08-12] MEDS: ZINC SULFATE 220 MG CAPSULE GT SCH (10:20)
[2018-08-12] MEDS: MONTELUKAST SODIUM 10 MG TABLET GT SCH (10:20)
[2018-08-12] MEDS: ASPIRIN 81 MG CHEW GT SCH (10:20)
[2018-08-12] MEDS: METOPROLOL TARTRATE 50 MG TAB PO SCH ×2 (10:20→21:56)
[2018-08-12] MEDS: POLYETHYLENE (MIRALAX) 17 GM PACK PO SCH (10:20)
[2018-08-12] MEDS: TIOTROPIUM BROMIDE 5 PUFF/90 MCG INH INH SCH (10:21)
[2018-08-12] MEDS: FLUTICASONE/SALMETEROL (ADVAIR) 500/50 INH 14 PUFF INH SCH ×2 (10:21→21:46)
[2018-08-12] MEDS ORDERED: MIDAZOLAM HCL 5 MG/ML 1 ML VIAL ONE (10:24)
[2018-08-12] MEDS ORDERED: fentaNYL citrate 100 MCG/2 ML VIAL ONE (10:24)
[2018-08-12] MEDS ORDERED: PANTOprazole 40 MG in SYRINGE 0 ML IV SCH (11:00)
--- NOTE | 2018-08-12 11:12 | Pre Anesthesia Assessment ---
Date of Service August 12, 2018 Pre Sedation Assessment Vital Signs Temp Pulse Pulse Pulse Resp BP BP 08/12/18 08:00 89 16 08/12/18 05:00 93 H 29 H 85/55 L 08/12/18 04:30 92 H 34 H 95/61 L 08/12/18 04:00 98 H 33 H 83/57 L 08/12/18 03:30 36.5 C 98 H 30 H 88/54 L 08/12/18 03:20 99 H 08/12/18 03:15 36.5 C 103 H 20 82/61 L 08/12/18 03:01 103 H 31 H 82/61 L 08/12/18 02:43 37.3 C 101 H 29 H 86/53 L 08/12/18 02:01 105 H 31 H 08/12/18 02:00 104 H 32 H 88/56 L 08/12/18 01:45 114 H 26 H 86/53 L 08/12/18 01:32 143 H 36 H 08/12/18 01:31 147 H 27 H 94/53 L 08/12/18 01:29 135 H 18 75/50 L 08/12/18 01:16 167 H 26 H 86/55 L 08/12/18 01:15 146 H 22 08/12/18 01:02 158 H 18 08/12/18 01:01 172 H 24 89/57 L 08/12/18 01:00 168 H 14 08/12/18 00:45 166 H 16 85/67 L 08/12/18 00:30 149 H 38 H 104/64 08/12/18 00:15 108 H 40 H 98/63 L 08/12/18 00:00 116 H 19 96/58 L 08/11/18 23:50 38.3 C H 08/11/18 23:31 117 H 49 H 82/63 L 08/11/18 23:06 08/11/18 23:00 121 H 26 H 85/61 L 08/11/18 22:58 128 H 23 08/11/18 22:57 125 H 25 H 82/57 L 08/11/18 22:52 36.3 C L 122 H 25 H 85/61 L Pulse Ox 08/12/18 08:00 94 08/12/18 05:00 95 03/20/19 04:30 98 08/12/18 04:00 100 08/12/18 03:30 93 08/12/18 03:20 08/12/18 03:15 91 08/12/18 03:01 84 L 08/12/18 02:43 93 08/12/18 02:01 92 08/12/18 02:00 92 08/12/18 01:45 91 08/12/18 01:32 88 L 08/12/18 01:31 89 L 08/12/18 01:29 90 08/12/18 01:16 89 L 08/12/18 01:15 87 L 08/12/18 01:02 87 L 08/12/18 01:01 89 L 08/12/18 01:00 89 L 08/12/18 00:45 91 08/12/18 00:30 90 08/12/18 00:15 92 08/12/18 00:00 86 L 08/11/18 23:50 08/11/18 23:31 87 L 08/11/18 23:06 88 L 08/11/18 23:00 91 08/11/18 22:58 88 L 08/11/18 22:57 87 L 08/11/18 22:52 88 L Cardiovascular + abnormal opening sounds Respiratory + labored breathing Additional Comments: Trach in place, advanced COPD. Pre-Sedation Airway Assessment Smoking Status: Former smoker Hx Sleep Apnea: No Mallampati Class: I NPO Status Last Intake of Solids Comment: Patient had a PEG tube Procedure Planning Current Medications Reviewed: Yes Notes The planned sedation has been discussed with the patient. Informed Consent was obtained. I have identified the patient, determined the appropriateness of sedation and have assessed the patient immediately prior to the procedure. All medicine(s) and interventions are by my order.
--- NOTE | 2018-08-12 11:13 | Post Operative Brief Note ---
Immediate Post Op Note v1 Date of Surgery August 12, 2018 Pre & Post Diagnosis Aspiration Procedure Bronchoscopy Surgeon Arcadio Lima Cup[employer] Repairer Nursing staff Estimated Blood Loss 0 Findings See Below See procedure note Complications none
--- NOTE | 2018-08-12 11:16 | Procedure Note ---
Procedure Note Date of Service August 12, 2018 Note The patient underwent a bronchoscopy, indication left lower lobe atelectasis with the secretions, consent obtained from the patient, risk and benefit explained, patient agreed to the procedure. The patient has already a tracheostomy tube #6 Shiley non-cuffed nonfenestrated in place. The patient monitored in ICU bed 8 with ICU style of monitoring. Received lidocaine neb via the trach mask with 5 mL of 4% lidocaine, received total of 50 mics of fentanyl and 2 mg of Versed in increments. Vital signs remained stable throughout the entire procedure. The procedure proceeded as follows: 1. The tracheostomy tube was removed, large amount of secretions were noted retained in the inner cannula. 2. The bronchoscope passed through the tracheostomy stoma, and the upper airways appeared to be with mild granulomata. 3. The trachea was injected with lidocaine 10 mL total of 1%. 4. First aspirate was suctioned, and then specimen was obtained from the left lower lobe. 5. Large amount of yellow secretions obtained from the left lower lobe and its branches. 6. Scant amount of secretions elsewhere. 7. Specimen was sent for cultures. 8. 5 mL of normal saline was used at the medial segment of the left lower lobe. 9. The bronchoscope was retrieved entirely. 10. A new tracheostomy tube was placed without any difficulty using inner cannula in place. And change from fenestrated to a nonfenestrated Shiley #6. Tolerated the procedure very well, no immediate complication.
[2018-08-12] MEDS ORDERED: fentaNYL citrate 100 MCG/2 ML VIAL IV STA (11:18)
[2018-08-12] MEDS ORDERED: MIDAZOLAM HCL 5 MG/ML 1 ML VIAL IV STA (11:18)
--- NOTE | 2018-08-12 11:22 | Critical Care Consultation ---
Date of Consultation August 12, 2018 Assessment & Plan (1) Pneumonia involving left lung: Impression: 1. Acute on chronic hypoxic respiratory failure. 2. End-stage COPD. 3. Cardiomyopathy with EF of 20%. 4. Left lower lobe infiltrate worsening, due to aspiration, status post bronchoscopy with large amount of secretions appear to be greenish in color removed from the left lower lobe. 5. Chronic aspiration. 6. Malnourishment. 7. A. fib with RVR. Plan: 1. Bronchoscopy was done with clearance of secretions from the left lower lobe. Specimen was sent for culture. 2. Tracheostomy tube changed due to inspissated secretions occluding and contaminating the previous tracheostomy tube. 3. We will repeat the chest x-ray after the procedure. 4. Continue antibiotics. 5. Continue with tube feeding. 6. Amiodarone IV, can be changed to via PEG tube. 7. Discontinue levo albuterol inhaler as needed. 8. Change Solu-Medrol to every 12 hours. 9. Continue Zosyn. 10. Discontinue vancomycin. 11. Discussed with the staff on rounds and details. 12. I will change most of his medications to PEG tube. 13. Continue beta-blockers. Critical care time spent with the patient was 35 minutes excluding procedure time. History of Present Illness Reason for Consultation: Acute respiratory failure. Requesting Physician: Dr. Bowman Attending Physician: Roger Bowman MD History of Present Illness Dear Dr. Bowman: Thank you for your kind referral of Mr. Moore to critical care service. This is 62-year-old gentleman known to me from the past with history of advanced COPD, prolonged hospitalization last month, requiring tracheostomy tube placement and PEG tube placement, janie aspiration, cardiomyopathy with EF of 20%, cachexia and poor nutrition, he is incarcerated, presented to the hospital with increasing shortness of breath accompanied with rapid A. fib, the patient was started on amiodarone, found to have left lower lobe infiltrate, started also empirically on antibiotics. The patient was admitted to the ICU for further management. The patient denies any pain, no hemoptysis reported. No nausea or vomiting was reported either. Due to the presence of tracheostomy, the patient could not phonate any symptoms, he appeared comfortable but his O2 saturation is 91% on 5 L via trach mask. He denies any dizziness, no loss of consciousness, he was not ambulatory very much. Allergies Allergy/AdvReac Type Severity Reaction Status Date / Time No Known Allergies Allergy Unverified 07/14/18 08:44 Home Medications Home Medications Medication Instructions Recorded Confirmed Type fluticasone propion-salmeterol 1 inh INHALATION BID 03/19/18 08/11/18 History [Advair Diskus] montelukast [Singulair] 10 mg FEEDING TUBE QAM 03/19/18 08/11/18 History spironolactone [Aldactone] 25 mg FEEDING TUBE QAM 03/19/18 08/11/18 History Spiriva with HandiHaler 1 cap INHALATION DAILY 07/14/18 08/11/18 History guaifenesin 400 mg PO TID 07/14/18 08/11/18 History levalbuterol tartrate [Xopenex HFA] 2 inh INHALATION TID PRN 07/14/18 08/11/18 History aspirin 81 mg FEEDING TUBE DAILY #90 tab 08/06/18 08/11/18 Rx famotidine 20 mg FEEDING TUBE BID 08/11/18 08/11/18 History furosemide 4 ml FEEDING TUBE DAILY 08/11/18 08/11/18 History ipratropium-albuterol 3 ml INHALATION Q4 08/11/18 08/11/18 History levofloxacin 500 mg FEEDING TUBE DAILY 08/11/18 08/11/18 History metoprolol tartrate 50 mg PO BID 08/11/18 08/11/18 History zinc sulfate 220 mg FEEDING TUBE DAILY 08/11/18 08/11/18 History Patient History Medical History Tobacco use (Chronic) GERD (gastroesophageal reflux disease) (Chronic) Cirrhosis (Chronic) Hepatitis B (Chronic) COPD (chronic obstructive pulmonary disease) (Acute) HTN (hypertension) (Chronic) Pneumonia (Resolved) Tachycardia (Resolved) COPD exacerbation (Resolved) Acute respiratory failure with hypoxia (Acute) COPD (chronic obstructive pulmonary disease) Cirrhosis of liver GERD (gastroesophageal reflux disease) History of hepatitis B Hypertension Tobacco abuse Surgical History Tracheostomy present Family History Other Diabetes Heart disease Kidney disease Social History Preferred Language: Czech Communication Ability: Impaired 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 Physical Exam Vital Signs (Past 24 Hours): Last Vital Signs Temp 36.5 C 08/12/18 03:30 Pulse 89 08/12/18 08:00 Resp 16 08/12/18 08:00 BP 85/55 L 08/12/18 05:00 Pulse Ox 94 08/12/18 08:00 Physical Exam: Vital signs are stable, S1-S2 regular rate and rhythm, borderline blood pressure but he is end-stage cardiomyopathy with acceptable b lood pressure for him. O2 saturation 94% on trach collar with only 5 L. No stridor, S1-S2, A. fib, rate controlled, crackles bilaterally, hyperinflated chest, abdomen is benign, no edema, PEG site and tracheostomy tube site are well-maintained. Neurologically he is intact. Results & Data Laboratory Results Labs were consistent with leukocytosis, improving, BUN and creatinine has been stable. Diagnostic Findings Chest x-ray which I reviewed showed worsening left lower lobe infiltrate. Hyperinflated lungs and all lines are in good position. (1) Pneumonia involving left lung Lung location: lower lobe of lung Pneumonia type: due to unspecified organism Qualified Code(s): J18.1 - Lobar pneumonia, unspecified organism
[2018-08-12] MEDS ORDERED: SODIUM CHLORIDE 0.9% 500 ML IV ONE (12:45)
[2018-08-12] MEDS: HEPARIN SOD 5,000 UNIT/0.5 ML VIAL SQ SCH ×2 (12:45→21:46)
--- NOTE | 2018-08-12 13:56 | Consultation Report ---
DATE OF CONSULTATION: 08/12/2018 INPATIENT CARDIOLOGY CONSULTATION CONSULTATION REQUESTED BY: Dr. Vogt. REASON FOR CONSULTATION: Atrial fibrillation with rapid ventricular response. HISTORY OF PRESENT ILLNESS: Mr. Shirley is a 62-year-old gentleman who was recently discharged from [facility] on 08/06/2018 after an extended stay for respiratory failure. He presented to [facility] on 08/12/2018 from [facility] with reports of increasing productive cough and hypoxia. The patient's history was obtained through review of medical records given the patient's current mental status. Apparently, the patient was complaining of increasing cough and sputum production and he was noted to hypoxic. He was sent to [facility] ER where he was found to be in new onset atrial fibrillation with rapid ventricular response as well as hypoxic. He was started on amiodarone bolus and drip and admitted to telemetry. The patient spontaneously converted early in the a.m. 08/12/2018 to normal sinus rhythm in the 90s. The patient received sedation prior to my interview, currently is not responsive to verbal stimuli. PAST SURGICAL HISTORY: Recent PEG and trach placement. MEDICAL ILLNESSES: 1. Tobacco abuse. 2. End-stage COPD. 3. Biventricular heart failure, left ventricular ejection fraction 20%. 4. Hypertension. 5. Hepatitis B. 6. Cirrhosis. 7. GERD. FAMILY HISTORY: Noncontributory. SOCIAL HISTORY: The patient is a lifelong smoker and continues to smoke. He is currently in custodial at [facility]. REVIEW OF SYSTEMS: Unobtainable given the patient's current state. ALLERGIES: No known drug allergies. MEDICATIONS AN OUTPATIENT: 1. Aspirin 81 mg daily. 2. Metoprolol tartrate 50 mg b.i.d. 3. Spironolactone 25 mg daily. 4. Singular daily. 5. Lasix daily. PHYSICAL EXAMINATION: VITAL SIGNS: Temperature 36.5, pulse 93, respiratory rate 18, blood pressure 85/55. GENERAL: Sedated, nonresponsive to physical or verbal stimuli. No acute distress. HEENT: Normocephalic, atraumatic. Pupils equal, round, reactive to light and accommodation. Extraocular muscles intact. Anicteric sclerae. Moist mucous membranes. Poor dentition. NECK: No JVD, no bruit. CARDIOVASCULAR: Regular, but distant. Unable to appreciate murmurs, rubs or gallops. PULMONARY: Poor air movement bilaterally with scattered rhonchi. No rales or wheezing. ABDOMEN: Bowel sounds x4, soft. No rebound, guarding, tenderness. No organomegaly. EXTREMITIES: No clubbing, cyanosis or edema. +2 pedal pulses bilaterally. SKIN: Warm and dry. TEST RESULTS: A 12-lead EKG upon presentation in the Emergency Department independently reviewed at this time shows sinus tachycardia at 120 beats per minute. Follow-up study less than an hour later shows atrial fibrillation with rapid ventricular response. A 12-lead EKG performed 11:00 a.m. shows normal sinus rhythm. IMPRESSION: 1. Paroxysmal atrial fibrillation. 2. Acute on chronic hypoxic respiratory failure with increasing secretions. 3. Biventricular systolic heart failure, left ventricular ejection fraction 20%. 4. Tobacco abuse. 5. End-stage chronic obstructive pulmonary disease. RECOMMENDATIONS: At this point, Mr. Shirley was proven to be in sinus rhythm upon arrival, but then converted spontaneously to atrial fibrillation. He was appropriately treated with IV amiodarone bolus and drip and I believe he should be maintained on that for now and should be changed over to his PEG tube after 24-hour cycle has been completed. Otherwise, his metoprolol should be given via PEG tube as well as his blood pressure allows. I will hold off on anticoagulation at this time given the brief episode.
--- NOTE | 2018-08-12 15:58 | Hospitalist Progress Note ---
Date of Service August 12, 2018 Assessment & Plan (1) Atrial fibrillation with rapid ventricular response: Seems to be new onset atrial fibrillation with rapid ventricular response May be contributed by infection Appreciate cardiology input and recommendation Has been on amiodarone drip and the heart rate seems to be controlled Continue beta-kyaw Present on Admission?: Yes (2) Pneumonia involving left lung: Admitted with sepsis likely secondary to pneumonia Pneumonia involves the left middle and lower lobe May be secondary to aspiration ago he has a PEG tube placed for feeding Cultures have been sent Has been on intravenous vancomycin and Zosyn Appreciate tax services intern input and recommendation Present on Admission?: Yes (3) Biventricular heart failure: Has history of biventricular heart failure with an EF of around 20% Hold diuretics now No overt CHF at this time (4) Sepsis: (5) Hyponatremia: Will monitor sodium level (6) COPD exacerbation: Has history of COPD Exacerbation due to pneumonia continue Solu-Medrol intravenously and antibiotics Subjective The patient was seen and examined in the ICU He is a 62-year-old male who was recently in the hospital for acute respiratory failure from chronic obstructive pulmonary disease, pneumonia, congestive heart failure. Presents with respiratory distress, pneumonia and sepsis and rapid atrial fibrillation. Complains to have shortness of breath and generally unwell Feels a little better since admission Physical Exam Vital Signs (Past 24 Hours): Last Vital Signs Temp 36.5 C 08/12/18 03:30 Pulse 81 08/12/18 15:15 Resp 16 08/12/18 15:15 BP 85/55 L 08/12/18 05:00 Pulse Ox 97 08/12/18 15:15 Physical Exam: Moderate distress at rest Constitutional: + acute distress, + ill appearing and + thin Eyes: PERRL, conjunctivae normal, anicteric sclerae ENMT: external ear and nose normal, oropharynx normal Mallampati Class: I Neck: Has tracheostomy in the tube is inside Respiratory: + respiratory distress and + labored breathing Auscultation: + diminished lung sounds, + crackles and + wheezes Cardiovascular: Rate/Rhythm: + tachycardic Heart Sounds: normal S1 and normal S2 Gastrointestinal (Abdomen): Has PEG tube in place. Benign abdominal examination Neurologic: awake Generally weak Results & Data Laboratory Results Short CBC 08/11/18 08/12/18 Range/Units 23:33 04:38 WBC 36.05 H* 26.61 H (4.8-10.8) K/uL Hgb 9.6 L 9.2 L (14.0-18.0) g/dL Hct 28.2 L 27.2 L (42-52) % Plt Count 255 231 (130-400) K/uL BMP 08/11/18 08/12/18 23:33 04:38 Sodium 126 L 128 L Potassium 3.8 3.7 Chloride 86 L 92 L Carbon Dioxide 34 H 33 H BUN 21 H 17 Creatinine 0.50 L 0.40 L Glucose 110 H 126 H Calcium 8.4 L 7.5 L Cardiac Enzymes 08/11/18 Range/Units 23:33 Troponin I < 0.015 (0-0.045) ng/ml Liver Function 08/11/18 Range/Units 23:33 Total Bilirubin 0.4 (0.2-1) mg/dl Direct Bilirubin 0.2 (0-0.2) mg/dl AST 35 (15-37) U/L ALT 62 (12-78) U/L Alkaline Phosphatase 119 H (45-117) U/L Albumin 1.7 L (3.4-5.0) gm/dl Medications Administered Current Inpatient Medications Albuterol (Duoneb) 3 ml INH Q4R SIENNA Stop: 09/11/18 03:59 Last Admin: 08/12/18 15:14 Dose: 3 ml Documented by: Aspirin (Aspirin Chew) 81 mg GT DAILY SIENNA Stop: 09/11/18 08:59 Last Admin: 08/12/18 10:20 Dose: 81 mg Documented by: Enteral Nutritional Formula (Impact 1.0 Galo) 1,000 ml PEG UD [facility]; Protocol Stop: 09/11/18 15:14 Heparin Sodium (Porcine) (Heparin Sodium (Porcine)) 5,000 units SQ Q8 SIENNA Stop: 09/11/18 13:59 Last Admin: 08/12/18 12:45 Dose: 5,000 units Documented by: Amiodarone HCl/Dextrose (Nexterone / D5w) 360 mg in 200 mls @ 16.667 mls/hr IV .Q12H SIENNA Stop: 09/11/18 06:55 Last Infusion: 08/12/18 13:31 Dose: Infused Documented by: Sodium Chloride (Nss 1000ml) 1,000 mls @ 50 mls/hr IV .Q20H SIENNA Stop: 09/11/18 03:19 Last Admin: 08/12/18 03:41 Dose: 50 mls/hr Documented by: Piperacillin Sod/Tazobactam (Sod 4.5 gm/ Dextrose) 120 mls @ 30 mls/hr IV Q8H SIENNA Stop: 08/19/18 05:59 Last Admin: 08/12/18 12:45 Dose: 30 mls/hr Documented by: Methylprednisolone 40 mg/ (Syringe) 0.64 mls @ 1.5 mls/min IV Q12H SIENNA Stop: 09/11/18 15:59 Lansoprazole (Prevacid) 30 mg GT DAILY SIENNA Stop: 09/12/18 08:59 Metoprolol Tartrate (Lopressor) 50 mg PO BID SIENNA Stop: 09/11/18 08:59 Last Admin: 08/12/18 10:20 Dose: 50 mg Documented by: Miscellaneous (Icu Protocol For Hyperglycemia) 1 ea N/A PRN PRN; Protocol PRN Reason: Hyperglycemia Protocol Stop: 08/14/18 03:19 Miscellaneous Information (Consult) 1 ea N/A UD PRN PRN Reason: Consult Stop: 09/11/18 03:19 Montelukast Sodium (Singulair) 10 mg GT QAM SIENNA Stop: 09/11/18 08:59 Last Admin: 08/12/18 10:20 Dose: 10 mg Documented by: Polyethylene Glycol (Miralax Powder Packet) 17 gm PO DAILY SIENNA Stop: 09/11/18 08:59 Last Admin: 08/12/18 10:20 Dose: 17 gm Documented by: Fluticasone/Salmeterol (Advair Diskus 500/50) 1 puffs INH BID SIENNA Stop: 09/11/18 08:59 Last Admin: 08/12/18 10:21 Dose: Not Given Documented by: Tiotropium [place] (Spiriva) 1 puffs INH DAILY SIENNA Stop: 09/11/18 08:59 Last Admin: 08/12/18 10:21 Dose: Not Given Documented by: Zinc Sulfate (Zinc Sulfate) 220 mg GT DAILY SIENNA Stop: 09/11/18 08:59 Last Admin: 08/12/18 10:20 Dose: 220 mg Documented by: (1) Pneumonia involving left lung Lung location: lower lobe of lung Pneumonia type: due to unspecified organism Qualified Code(s): J18.1 - Lobar pneumonia, unspecified organism
[2018-08-12] MEDS: methylPREDNISolone 40 MG in SYRINGE 0 ML IV SCH (16:11)
[2018-08-12] MEDS: IMPACT LIQD 1.0 CAL 1,000 ML BAG PEG SCH (16:11)
[2018-08-13] MEDS: ALBUT/IPRATROP 3MG/0.5MG NEB 3 ML VIAL INH SCH ×6 (03:49→23:55)
[2018-08-13 04:29] LABS: Hematocrit (blood only) 26.1 % (42-52); Hemoglobin 8.6 g/dL (14.0-18.0); Mean Corpuscular Volume 88.8 fL (80-100); Mean Platelet Volume 8.9 fL (7.4-10.4); Platelet Count 217 K/uL (130-400); RDW Coefficient of Variation 14.8 % (11.5-14.5); RDW Standard Deviation 48.4 fL (36.4-46.3); Red Blood Count 2.94 M/uL (4.7-6.1); White Blood Count 27.07 K/uL (4.8-10.8)
[2018-08-13] MEDS: methylPREDNISolone 40 MG in SYRINGE 0 ML IV SCH ×2 (04:32→16:01)
[2018-08-13 04:46] LABS: BUN Creatinine Ratio 45.9 (10-20); Blood Urea Nitrogen 16 mg/dl (7-18); Calcium 7.8 mg/dl (8.5-10.1); Carbon Dioxide 34 mmol/L (21-32); Chloride 97 mmol/L (98-107); Creatinine Clr Calc Pharmacy 176.9 ml/min; Est GFR (African American) > 150.0; Est GFR (Non-African American) 133.6; Glucose 114 mg/dl (70-99); Magnesium 2.2 mg/dl (1.8-2.4); Phosphorus 2.8 mg/dl (2.5-4.9); Sodium 134 mmol/L (136-145)
[2018-08-13 04:52] LABS: Basophils # (auto) 0.02 K/uL (0-0.2); Basophils % (auto) 0.1 %; Immature Granulocytes # (auto) 0.49 K/uL (0.00-0.02); Immature Granulocytes % (auto) 1.8 %; Lymphocytes # (auto) 1.45 K/uL (1.2-3.4); Lymphocytes % (auto) 5.4 %; Monocytes # (auto) 0.87 K/uL (0.11-0.59); Monocytes % (auto) 3.2 %; Neutrophils # (auto) 24.24 K/uL (1.4-6.5); Neutrophils % (auto) 89.5 %; RBC Morphology Unremarkable; Toxic Vacuolation Occasional
[2018-08-13] MEDS: PIPERACILLIN/TAZOBACTAM 4.5 GM in DEXTROSE 5% 100 ML IV SCH ×3 (06:03→21:13)
[2018-08-13] MEDS: HEPARIN SOD 5,000 UNIT/0.5 ML VIAL SQ SCH ×3 (06:03→21:13)
[2018-08-13 06:47] LABS: iSTAT Allen Test Pass; iSTAT Arterial Blood Gas HCO3 29 meg/L (19-24); iSTAT Arterial Blood Gas pCO2 43 mmHg (35-46); iSTAT Arterial Blood Gas pH 7.44 (7.35-7.45); iSTAT Carbon Dioxide 31 mEq/l (24-31); iSTAT FiO2 50 %; iSTAT Site L Radial
--- NOTE | 2018-08-13 07:28 | XRay Report ---
SINGLE VIEW CHEST CLINICAL HISTORY: Pneumonia. FINDINGS: 2 AP, portable, upright chest radiographs are compared to study dated 08/11/2018 and correla hattie with chest CT dated 07/14/2018. The examination is degraded by portable technique and patient rota tion. A tracheostomy is in place. The cardiomediastinal silhouette is unremarkable. Advanced emphyse ma is similar to previous. Consolidation throughout the left mid to lower lung is unchanged from 08/11 and there is a small left pleural effusion. The right lung is grossly clear noting multiple foc i of parenchyma scarring. Apical scarring and bullous change is again noted. No pneumothorax is seen. The skeletal structures are osteopenic. The bony thorax is grossly intact. IMPRESSION: 1. Advanced emphysema. 2. Consolidation throughout the left mid to lower lung and a small left pleural effusion has not sign ificantly changed from 08/11/2018. Electronically signed by: Dwayne Mays M.D. 08/13/2018 7:27 AM
[2018-08-13] MEDS: SODIUM CHLORIDE 0.9% 1000ML 1,000 ML IV SCH ×2 (09:08→19:52)
[2018-08-13] MEDS: FLUTICASONE/SALMETEROL (ADVAIR) 500/50 INH 14 PUFF INH SCH ×2 (09:09→19:52)
[2018-08-13] MEDS: ASPIRIN 81 MG CHEW GT SCH (09:09)
[2018-08-13] MEDS: METOPROLOL TARTRATE 50 MG TAB PO SCH ×2 (09:10→21:13)
[2018-08-13] MEDS: POLYETHYLENE (MIRALAX) 17 GM PACK PO SCH (09:10)
[2018-08-13] MEDS: LANSOPRAZOLE 30 MG SOLTAB GT SCH (09:10)
[2018-08-13] MEDS: MONTELUKAST SODIUM 10 MG TABLET GT SCH (09:10)
[2018-08-13] MEDS: TIOTROPIUM BROMIDE 5 PUFF/90 MCG INH INH SCH (09:11)
[2018-08-13] MEDS: ZINC SULFATE 220 MG CAPSULE GT SCH (09:12)
--- NOTE | 2018-08-13 09:36 | Cardiology Progress Note ---
Date of Service August 13, 2018 Assessment & Plan (1) Atrial fibrillation with rapid ventricular response: converted with amiodarone gtt would like to avoid amio if possible currently remaining in sinus with metoprolol, would continue only short episode, will hold off anticoagulation doubt patient is a good correction anticoagulation candidate (2) Biventricular heart failure: stable (3) Respiratory failure: Subjective Pt seen and examined, much more awake and alert today. Answering questions appropriately. States breathing has improved but not yet back to baseline. Denies chest pain or palpitations. tele reviewed: sinus rhythm without arrhythmia Review of Systems All systems reviewed & are unremarkable except as noted in HPI & below Physical Exam Vital Signs (Past 24 Hours): Last Vital Signs Temp 36.5 C 08/13/18 04:00 Pulse 100 H 08/13/18 08:01 Resp 24 08/13/18 08:01 BP 94/61 L 08/13/18 06:01 Pulse Ox 94 08/13/18 08:01 Physical Exam: General: Awake, alert and oriented x 3. No acute distress. HEENT: Normocephalic, atraumatic. Pupils equal, round and reactive to light and accommodation. Extraocular muscles are intact. Anicteric sclera. Moist mucous membranes. Neck: No JVD. No bruit. Cardiovascular: Regular but distant Pulmonary: poor airmovement with scattered rhonchi and wheezing Abdomen: Bowel sounds x 4, soft. No rebound, guarding or tenderness. No organomegaly. Extremities: No clubbing, cyanosis or edema. +2 pedal pulses bilaterally. Skin: Warm and dry. (1) Respiratory failure Chronicity: acute on chronic Respiratory failure complication: hypoxia and hypercapnia Qualified Code(s): J96.21 - Acute and chronic respiratory failure with hypoxia; J96.22 - Acute and chronic respiratory failure with hypercapnia
[2018-08-13] MEDS ORDERED: METHYLENE BLUE 0.5% 10 ML VIAL TOP ONE (11:00)
--- NOTE | 2018-08-13 11:40 | Critical Care Progress Note ---
Date of Service August 13, 2018 Assessment & Plan (1) Pneumonia involving left lung: Impression: 1. Acute on chronic hypoxic respiratory failure. 2. End-stage COPD. 3. Cardiomyopathy with EF of 20%. 4. Left lower lobe infiltrate worsening, due to aspiration, status post bronchoscopy with large amount of secretions appear to be greenish in color removed from the left lower lobe. I am concerned about tracheobronchialesophageal fistula. I would perform methylene blue dye testing using OG tube to 35 cm by the lips. Patient in agreement with. 5. Chronic aspiration. 6. Malnourishment. 7. A. fib with RVR. Plan: 1. Bronchoscopy with trach change to a cuffed trach. 2. Methylene blue testing evaluation for bronchial esophageal fistula. 3. I could not problems repeat chest x-ray today. 4. Continue antibiotics. 5. Keep tube feeding on hold. 6. Discontinue amiodarone. 7. Discontinue levo albuterol inhaler as needed. 8. Change Solu-Medrol to every 12 hours. 9. Continue Zosyn. 10. Discontinue vancomycin. 11. Discussed with the staff on rounds and details and was not respiratory therapy.. 12. Appreciate cardiology input, continue beta-blockers twice daily. 13. CODE STATUS reported as DNR but in rounds, mentioned that the patient was not DNR, I would clarify it with him. 14. All core measures for ICU stay has been met including but not limited to DVT prophylaxis, GI prophylaxis, skin care, feeding tube, and CAM ICU documentation. Critical care time spent with the patient was 35 minutes excluding procedure time. Subjective The patient did have episodes where he was coughing up feeding tube material from the trach tube. He was placed n.p.o. overnight. Discussed with the patient the need for bronchoscopy and evaluation for bronchoesophageal fistula. Would be performed today early afternoon. Apart from that, the patient is fully awake, following commands, denies any pain. Physical Exam Vital Signs (Past 24 Hours): Last Vital Signs Temp 36.9 C 08/13/18 08:00 Pulse 80 08/13/18 10:00 Resp 16 08/13/18 10:00 BP 87/51 L 08/13/18 10:00 Pulse Ox 92 08/13/18 10:00 Physical Exam: The patient is cachectic, blood pressure is borderline due to his poor cardiac output, rhonchi bilaterally, S1-S2 regular rate and rhythm, O2 saturation 93%, abdomen is benign, minimal tenderness around the PEG tube, no edema, cachexia. Neurologically he is nonfocal. Results & Data Laboratory Results Labs were reviewed which showed leukocytosis, hematocrit of 26, and platelets of 217. Diagnostic Findings I could not reviewed the chest x-ray in the computer from today, by report it says the patient has extensive consolidation on the left side. (1) Pneumonia involving left lung Lung location: lower lobe of lung Pneumonia type: due to unspecified organism Qualified Code(s): J18.1 - Lobar pneumonia, unspecified organism
[2018-08-13] MEDS ORDERED: MIDAZOLAM HCL 1 MG/ML 2ML VIAL ONE (13:38)
[2018-08-13] MEDS ORDERED: fentaNYL citrate 100 MCG/2 ML VIAL ONE (13:39)
--- NOTE | 2018-08-13 14:07 | Hospitalist Progress Note ---
Date of Service August 13, 2018 Assessment & Plan (1) Atrial fibrillation with rapid ventricular response: Seems to be new onset atrial fibrillation with rapid ventricular response May be contributed by infection Appreciate cardiology input and recommendation Has been on amiodarone drip and the heart rate seems to be controlled Reverted to sinus rhythm Continue beta-kyaw to maintain direct and try to avoid amiodarone as per home day care provider Short-term anticoagulation only (2) Pneumonia involving left lung: Admitted with sepsis likely secondary to pneumonia Pneumonia involves the left middle and lower lobe May be secondary to aspiration ago he has a PEG tube placed for feeding Cultures have been sent Has been on intravenous vancomycin and Zosyn Appreciate shrub planter input and recommendation Seems to have aspiration or any tracheoesophageal fistula to be present Will have bronchoscopy today and may need to have tracheostomy tube changed (3) Biventricular heart failure: Has history of biventricular heart failure with an EF of around 20% Hold diuretics now No overt CHF at this time (4) Sepsis: As above (5) Hyponatremia: Will monitor sodium level Sodium level is 134 today (6) COPD exacerbation: Has history of COPD Exacerbation due to pneumonia continue Solu-Medrol intravenously and antibiotics Remains stable Subjective The patient was seen and examined in the ICU He is a 62-year-old male who was recently in the hospital for acute respiratory failure from chronic obstructive pulmonary disease, pneumonia, congestive heart failure. Presents with respiratory distress, pneumonia and sepsis and rapid atrial fibrillation. Complains to have shortness of breath and generally unwell Feels a little better since admission 08/13 The patient was seen and examined in ICU Noted to have ongoing respiratory distress with audible crackles Reverted to sinus rhythm with controlled heart rate Denies any other symptoms Physical Exam Vital Signs (Past 24 Hours): Last Vital Signs Temp 36.9 C 08/13/18 08:00 Pulse 129 H 08/13/18 14:00 Resp 22 08/13/18 14:00 BP 108/60 08/13/18 14:00 Pulse Ox 97 08/13/18 14:00 Physical Exam: No apparent distress at rest Constitutional: + ill appearing and + thin Eyes: PERRL, conjunctivae normal, anicteric sclerae ENMT: external ear and nose normal, oropharynx normal Mallampati Class: I Respiratory: + respiratory distress (Minimal distress at rest) and + labored breathing Auscultation: + diminished lung sounds, + crackles and + wheezes Cardiovascular: Rate/Rhythm: + tachycardic Heart Sounds: normal S1 and normal S2 Gastrointestinal (Abdomen): Inspection/Auscultation: abdomen normal to inspection Percussion/Palpation: abdomen soft Gastrostomy tube is in situ Neurologic: awake Generally weak Results & Data Laboratory Results Short CBC 08/13/18 Range/Units 04:19 WBC 27.07 H (4.8-10.8) K/uL Hgb 8.6 L (14.0-18.0) g/dL Hct 26.1 L (42-52) % Plt Count 217 (130-400) K/uL BMP 08/13/18 04:19 Sodium 134 L Potassium 4.0 Chloride 97 L Carbon Dioxide 34 H BUN 16 Creatinine 0.35 L Glucose 114 H Calcium 7.8 L Medications Administered Current Inpatient Medications Albuterol (Duoneb) 3 ml INH Q4R SIENNA Stop: 09/11/18 03:59 Last Admin: 08/13/18 11:32 Dose: 3 ml Documented by: Aspirin (Aspirin Chew) 81 mg GT DAILY SIENNA Stop: 09/11/18 08:59 Last Admin: 08/13/18 09:09 Dose: 81 mg Documented by: Enteral Nutritional Formula (Impact 1.0 Galo) 1,000 ml PEG UD SIENNA; Protocol Stop: 09/11/18 15:14 Last Admin: 08/12/18 16:11 Dose: 1,000 ml Documented by: Heparin Sodium (Porcine) (Heparin Sodium (Porcine)) 5,000 units SQ Q8 SIENNA Stop: 09/11/18 13:59 Last Admin: 08/13/18 06:03 Dose: 5,000 units Documented by: Sodium Chloride (Nss 1000ml) 1,000 mls @ 50 mls/hr IV .Q20H SIENNA Stop: 09/11/18 03:19 Last Admin: 08/13/18 09:08 Dose: 50 mls/hr Documented by: Piperacillin Sod/Tazobactam (Sod 4.5 gm/ Dextrose) 120 mls @ 30 mls/hr IV Q8H SIENNA Stop: 08/19/18 05:59 Last Infusion: 08/13/18 10:19 Dose: Infused Documented by: Methylprednisolone 40 mg/ (Syringe) 0.64 mls @ 1.5 mls/min IV Q12H SIENNA Stop: 09/11/18 15:59 Last Admin: 08/13/18 04:32 Dose: 1.5 mls/min Documented by: Lansoprazole (Prevacid) 30 mg GT DAILY SIENNA Stop: 09/12/18 08:59 Last Admin: 08/13/18 09:10 Dose: 30 mg Documented by: Metoprolol Tartrate (Lopressor) 50 mg PO BID SIENNA Stop: 09/11/18 08:59 Last Admin: 08/13/18 09:10 Dose: 50 mg Documented by: Miscellaneous (Icu Protocol For Hyperglycemia) 1 ea N/A PRN PRN; Protocol PRN Reason: Hyperglycemia Protocol Stop: 08/14/18 03:19 Miscellaneous Information (Consult) 1 ea N/A UD PRN PRN Reason: Consult Stop: 09/11/18 03:19 Montelukast Sodium (Singulair) 10 mg GT QAM SIENNA Stop: 09/11/18 08:59 Last Admin: 08/13/18 09:10 Dose: 10 mg Documented by: Polyethylene Glycol (Miralax Powder Packet) 17 gm PO DAILY SIENNA Stop: 09/11/18 08:59 Last Admin: 08/13/18 09:10 Dose: 17 gm Documented by: Fluticasone/Salmeterol (Advair Diskus 500/50) 1 puffs INH BID SIENNA Stop: 09/11/18 08:59 Last Admin: 08/13/18 09:09 Dose: 1 puffs Documented by: Tiotropium [place] (Spiriva) 1 puffs INH DAILY SIENNA Stop: 09/11/18 08:59 Last Admin: 08/13/18 09:11 Dose: 1 puffs Documented by: Zinc Sulfate (Zinc Sulfate) 220 mg GT DAILY SIENNA Stop: 09/11/18 08:59 Last Admin: 08/13/18 09:12 Dose: 220 mg Documented by: (1) Pneumonia involving left lung Lung location: lower lobe of lung Pneumonia type: due to unspecified organism Qualified Code(s): J18.1 - Lobar pneumonia, unspecified organism
--- NOTE | 2018-08-13 14:38 | Procedure Note ---
Procedure Note Date of Service August 13, 2018 Note Procedure was done in the ICU, due to the patient having copious amount of feeding tube material coming out of the trach tube. The procedure was done to change the trach tube to balloon cuff, perform bronchoscopy for pulmonary toilet, and evaluation for TE fistula using methylene blue. The procedure was done in room 8 in the ICU. The patient consented to the procedure, agreed to the procedure. Risk and benefit explained details. Timeout was performed by the nursing staff, appreciate their assistance, assistance was performed also by the respiratory therapist, appreciated, conscious sedation was performed using 50 mics of fentanyl and 2 mg of Versed total, the patient received lidocaine neb via the trach mask, and 10 mL of 1% lidocaine throughout the procedure injectable via the bronch. After the patient was well sedated, and monitored in the ICU style of monitoring, the procedure proceeded as follows: 1. The non-cuffed Shiley #6 trach was removed. 2. The bronchoscope was inserted through the stoma and mild granulation tissue was noted at the opening. 3. Copious amount of secretions mainly from the left lower lobe segments as well as the right lower lobe segments, all suctioned to clear. No specimen was obtained. Specimen was obtained from previous [facility] yesterday. 4. The bronchoscope was retrieved from the stoma, and using #6 Shiley cuffed nonfenestrated tracheostomy tube, it was inserted with a stylet into the stoma and the stylet was removed, and then the inner cannula inserted as well. And the balloon was inflated with 10 mL of air. No complication. 5. With direct visualization, a bite block was placed in the mouth, and the bronchoscope passed into the vocal cord level, copious amount of secretions also were noted and suctioned. Under direct visualization, OG tube was placed to 35 cm. 6. The bronchoscope was removed from the oral cavity, and inserted through the tracheostomy tube into the airways, and methylene blue of 5 mL diluted in 250 mL of normal saline, using 2 syringes of 60 mL each, injected through the OG tube, waited for 10 minutes to evaluate for a leak from the subsegment of the tracheobronchial tree. 7. The tracheobronchial tree examined to the sub-subsegmental level. No evidence of methylene blue leak, this will rule out most likely the chance of TE fistula. 8. Likely the patient is regurgitating his tube feeding through the esophagus and aspirated with non-cuffed trach. 9. Connect the patient with T-piece for convenience of suction. 10. Continue tube feeding. 11. The bronchoscope was removed entirely and the patient was placed on trach mask, tolerated the procedure very well, no immediate complication. Thank you
[2018-08-13] MEDS: DIGOXIN 250 MCG in SYRINGE 9 ML IV SCH ×2 (16:01→19:52)
[2018-08-13] MEDS: IMPACT LIQD 1.0 CAL 1,000 ML BAG PEG SCH (16:21)
--- NOTE | 2018-08-13 16:58 | Procedure Note ---
Procedure Note Date of Service August 13, 2018
[2018-08-13] MEDS: METOCLOPRAMIDE HCL 5 MG TABLET PO SCH ×2 (18:19→23:38)
[2018-08-14] MEDS: methylPREDNISolone 40 MG in SYRINGE 0 ML IV SCH ×2 (03:35→16:23)
[2018-08-14 03:49] LABS: Basophils # (auto) 0.02 K/uL (0-0.2); Basophils % (auto) 0.1 %; Hematocrit (blood only) 24.2 % (42-52); Hemoglobin 8.1 g/dL (14.0-18.0); Immature Granulocytes # (auto) 0.36 K/uL (0.00-0.02); Lymphocytes # (auto) 1.16 K/uL (1.2-3.4); Lymphocytes % (auto) 6.3 %; Mean Corpuscular Hgb Conc 33.5 g/dL (32-36); Mean Corpuscular Volume 88.6 fL (80-100); Mean Platelet Volume 8.8 fL (7.4-10.4); Monocytes # (auto) 0.54 K/uL (0.11-0.59); Monocytes % (auto) 2.9 %; Neutrophils # (auto) 16.28 K/uL (1.4-6.5); Neutrophils % (auto) 88.7 %; Platelet Count 199 K/uL (130-400); RDW Coefficient of Variation 15.2 % (11.5-14.5); RDW Standard Deviation 49.3 fL (36.4-46.3); Red Blood Count 2.73 M/uL (4.7-6.1); White Blood Count 18.36 K/uL (4.8-10.8)
[2018-08-14] MEDS: ALBUT/IPRATROP 3MG/0.5MG NEB 3 ML VIAL INH SCH ×6 (04:06→23:20)
[2018-08-14 04:11] LABS: BUN Creatinine Ratio 57.4 (10-20); Blood Urea Nitrogen 20 mg/dl (7-18); Calcium 7.8 mg/dl (8.5-10.1); Carbon Dioxide 32 mmol/L (21-32); Chloride 99 mmol/L (98-107); Creatinine Clr Calc Pharmacy 148.8 ml/min; Est GFR (African American) > 150.0; Est GFR (Non-African American) 133.6; Glucose 128 mg/dl (70-99); Magnesium 2.1 mg/dl (1.8-2.4); Phosphorus 2.8 mg/dl (2.5-4.9); Potassium 4.1 mmol/L (3.5-5.1); Sodium 134 mmol/L (136-145)
[2018-08-14 04:23] LABS: RBC Morphology Unremarkable
[2018-08-14] MEDS: SODIUM CHLORIDE 0.9% 1000ML 1,000 ML IV SCH (05:35)
[2018-08-14] MEDS: HEPARIN SOD 5,000 UNIT/0.5 ML VIAL SQ SCH ×3 (05:36→22:36)
[2018-08-14] MEDS: METOCLOPRAMIDE HCL 5 MG TABLET PO SCH ×3 (05:36→18:07)
[2018-08-14] MEDS: PIPERACILLIN/TAZOBACTAM 4.5 GM in DEXTROSE 5% 100 ML IV SCH ×3 (05:36→21:28)
--- NOTE | 2018-08-14 07:16 | XRay Report ---
XR chest 1V portable HISTORY: 62 years-old Male pneumonia acute shortness of breath with pneumonia COMPARISON: Chest radiograph 08/13/2018 TECHNIQUE: Portable AP view of the chest FINDINGS: Tracheostomy cannula appears unchanged. The cardiac mediastinal and hilar silhouettes are unchanged. Advanced emphysema with chronic fibrotic changes. No pneumothorax. Right lung is generally clear. Air space opacities throughout the mid and lower left lung appears unchanged. Small left pleural effusion . Degenerative changes of the shoulders and spine. IMPRESSION: 1. Airspace opacities about the mid and lower left lung appear unchanged from comparison. 2. Small left pleural effusion. 3. Advanced emphysema with chronic fibrotic changes. The above report was generated using voice recognition software. It may contain grammatical, syntax o r spelling errors. Electronically signed by: Jason Marcus M.D. 08/14/2018 7:15 AM
[2018-08-14] MEDS: TIOTROPIUM BROMIDE 5 PUFF/90 MCG INH INH SCH (07:55)
[2018-08-14] MEDS: FLUTICASONE/SALMETEROL (ADVAIR) 500/50 INH 14 PUFF INH SCH ×2 (07:55→21:25)
[2018-08-14] MEDS: ZINC SULFATE 220 MG CAPSULE GT SCH (07:56)
[2018-08-14] MEDS: LANSOPRAZOLE 30 MG SOLTAB GT SCH (07:56)
[2018-08-14] MEDS: MONTELUKAST SODIUM 10 MG TABLET GT SCH (07:56)
[2018-08-14] MEDS: DIGOXIN 125 MCG in SYRINGE 9.5 ML IV SCH (07:56)
[2018-08-14] MEDS: ASPIRIN 81 MG CHEW GT SCH (07:56)
[2018-08-14] MEDS: METOPROLOL TARTRATE 50 MG TAB PO SCH ×2 (07:56→21:26)
[2018-08-14] MEDS: POLYETHYLENE (MIRALAX) 17 GM PACK PO SCH (07:56)
--- NOTE | 2018-08-14 10:48 | Hospitalist Progress Note ---
Date of Service August 14, 2018 Assessment & Plan (1) Atrial fibrillation with rapid ventricular response: Seems to be new onset atrial fibrillation with rapid ventricular response May be contributed by infection Appreciate cardiology input and recommendation Has been on amiodarone drip and the heart rate seems to be controlled Reverted to sinus rhythm Continue beta-kyaw to maintain direct and try to avoid amiodarone as per binder fixer Short-term anticoagulation only Rate is controlled and in sinus rhythm (2) Pneumonia involving left lung: Admitted with sepsis likely secondary to pneumonia Pneumonia involves the left middle and lower lobe May be secondary to aspiration ago he has a PEG tube placed for feeding Cultures have been sent Has been on intravenous vancomycin and Zosyn Appreciate retirement plan specialist input and recommendation Seems to have aspiration or any tracheoesophageal fistula to be present Will have bronchoscopy today and may need to have tracheostomy tube changedno evidence of tracheal esophageal fistula White count is improving Continue current antibiotic (3) Biventricular heart failure: Has history of biventricular heart failure with an EF of around 20% Hold diuretics now No overt CHF at this time (4) Sepsis: As above (5) Hyponatremia: Will monitor sodium level Sodium level is 134 today on 08/14 (6) COPD exacerbation: Has history of COPD Exacerbation due to pneumonia continue Solu-Medrol intravenously and antibiotics Remains stable Subjective The patient was seen and examined in the ICU He is a 62-year-old male who was recently in the hospital for acute respiratory failure from chronic obstructive pulmonary disease, pneumonia, congestive heart failure. Presents with respiratory distress, pneumonia and sepsis and rapid atrial fibrillation. Complains to have shortness of breath and generally unwell Feels a little better since admission 08/13 The patient was seen and examined in ICU Noted to have ongoing respiratory distress with audible crackles Reverted to sinus rhythm with controlled heart rate Denies any other symptoms 08/14 The patient was seen and examined in ICU He is a status post bronchoscopy without any evidence of tracheoesophageal fistula He has been feeling a lot better and denies any significant symptoms He has been moved out of ICU to telemetry unit Physical Exam Vital Signs (Past 24 Hours): Last Vital Signs Temp 37.3 C 08/14/18 08:00 Pulse 78 08/14/18 08:00 Resp 22 08/14/18 08:00 BP 102/57 L 08/14/18 08:00 Pulse Ox 97 08/14/18 08:00 Physical Exam: Lying in bed comfortably Constitutional: + ill appearing and + thin Eyes: PERRL, conjunctivae normal, anicteric sclerae ENMT: external ear and nose normal, oropharynx normal Mallampati Class: I Respiratory: Auscultation: + diminished lung sounds, + crackles and + wheezes Cardiovascular: Rate/Rhythm: + tachycardic Heart Sounds: normal S1 and normal S2 Gastrointestinal (Abdomen): Inspection/Auscultation: abdomen normal to inspection Percussion/Palpation: abdomen soft Neurologic: awake Results & Data Laboratory Results Short CBC 08/14/18 Range/Units 03:34 WBC 18.36 H (4.8-10.8) K/uL Hgb 8.1 L (14.0-18.0) g/dL Hct 24.2 L (42-52) % Plt Count 199 (130-400) K/uL BMP 08/14/18 03:34 Sodium 134 L Potassium 4.1 Chloride 99 Carbon Dioxide 32 BUN 20 H Creatinine 0.35 L Glucose 128 H Calcium 7.8 L Medications Administered Current Inpatient Medications Albuterol (Duoneb) 3 ml INH Q4R [facility] Stop: 09/11/18 03:59 Last Admin: 08/14/18 07:28 Dose: 3 ml Documented by: Aspirin (Aspirin Chew) 81 mg GT DAILY [facility] Stop: 09/11/18 08:59 Last Admin: 08/14/18 07:56 Dose: 81 mg Documented by: Enteral Nutritional Formula (Impact 1.0 Galo) 1,000 ml PEG UD [facility]; Protocol Stop: 09/11/18 15:14 Last Admin: 08/13/18 16:21 Dose: 1,000 ml Documented by: Heparin Sodium (Porcine) (Heparin Sodium (Porcine)) 5,000 units SQ Q8 [facility] Stop: 09/11/18 13:59 Last Admin: 08/14/18 05:36 Dose: 5,000 units Documented by: Sodium Chloride (Nss 1000ml) 1,000 mls @ 50 mls/hr IV .Q20H [facility] Stop: 09/11/18 03:19 Last Admin: 08/14/18 05:35 Dose: 50 mls/hr Documented by: Piperacillin Sod/Tazobactam (Sod 4.5 gm/ Dextrose) 120 mls @ 30 mls/hr IV Q8H [facility] Stop: 08/16/18 23:59 Last Infusion: 08/14/18 10:13 Dose: Infused Documented by: Methylprednisolone 40 mg/ (Syringe) 0.64 mls @ 1.5 mls/min IV Q12H [facility] Stop: 09/11/18 15:59 Last Admin: 08/14/18 03:35 Dose: 1.5 mls/min Documented by: Digoxin 125 mcg/ Syringe 10 mls @ 2 mls/min IV Q24H [facility] Stop: 09/13/18 07:59 Last Admin: 08/14/18 07:56 Dose: 2 mls/min Documented by: Metoclopramide HCl (Reglan) 5 mg PO Q6 [facility] Stop: 09/12/18 17:59 Last Admin: 08/14/18 05:36 Dose: 5 mg Documented by: Metoprolol Tartrate (Lopressor) 50 mg PO BID [facility] Stop: 09/11/18 08:59 Last Admin: 08/14/18 07:56 Dose: 50 mg Documented by: Miscellaneous Information (Consult) 1 ea N/A UD PRN PRN Reason: Consult Stop: 08/16/18 23:59 Montelukast Sodium (Singulair) 10 mg GT QAM [facility] Stop: 09/11/18 08:59 Last Admin: 08/14/18 07:56 Dose: 10 mg Documented by: Polyethylene Glycol (Miralax Powder Packet) 17 gm PO DAILY [facility] Stop: 09/11/18 08:59 Last Admin: 08/14/18 07:56 Dose: 17 gm Documented by: Fluticasone/Salmeterol (Advair Diskus 500/50) 1 puffs INH BID [facility] Stop: 09/11/18 08:59 Last Admin: 08/14/18 07:55 Dose: 1 puffs Documented by: Tiotropium [place] (Spiriva) 1 puffs INH DAILY [facility] Stop: 09/11/18 08:59 Last Admin: 08/14/18 07:55 Dose: 1 puffs Documented by: Zinc Sulfate (Zinc Sulfate) 220 mg GT DAILY [facility] Stop: 09/11/18 08:59 Last Admin: 08/14/18 07:56 Dose: 220 mg Documented by: (1) Pneumonia involving left lung Lung location: lower lobe of lung Pneumonia type: due to unspecified organism Qualified Code(s): J18.1 - Lobar pneumonia, unspecified organism
[2018-08-14] MEDS ORDERED: LACTULOSE SYRUP 30 GM/45 ML UDP PO PRN (13:46)
--- NOTE | 2018-08-14 13:53 | Critical Care Progress Note ---
Date of Service August 14, 2018 Assessment & Plan (1) Pneumonia involving left lung: Impression: 1. Acute on chronic hypoxic respiratory failure. 2. End-stage COPD. 3. Cardiomyopathy with EF of 20%. 4. Left lower lobe infiltrate worsening, due to aspiration, status post bronchoscopy with large amount of secretions appear to be greenish in color removed from the left lower lobe. I am concerned about tracheobronchialesophageal fistula. I would perform methylene blue dye testing using OG tube to 35 cm by the lips. Patient in agreement with. 5. Chronic aspiration. 6. Malnourishment. 7. A. fib with RVR. Plan: 1. Continue trach mask with 35% oxygen. 2. No evidence of TE fistula. 3. Keep the cuff deflated. 4. Continue Zosyn for total 5 days then stop it. 5. Continue with tube feeding and adjusted to goal at 65 mL an hour. 6. Discontinue amiodarone. 7. Keep Reglan 5 mg 4 times daily. Via the G-tube. 8. Change Solu-Medrol to prednisone. 9. Bowel regimen, add lactulose. 10. If no improvement in the patient continued to have aspiration, GI consult to convert G-tube to J-tube. 11. Discussed with the staff on rounds and details and was not respiratory therapy.. 12. Continue digoxin. 13. CODE STATUS reported as DNR but in rounds, mentioned that the patient was not DNR, the patient preferred full code. 14. All core measures for ICU stay has been met including but not limited to DVT prophylaxis, GI prophylaxis, skin care, feeding tube, and CAM ICU documen tation. Critical care time spent with the patient was 35 minutes excluding procedure time. Subjective The patient is feeling better, secretions has been less, denies any pain, no shortness of breath, he is on 35% trach mask. The patient remains n.p.o., is being fed through the PEG tube. Physical Exam Vital Signs (Past 24 Hours): Last Vital Signs Temp 37.3 C 08/14/18 08:00 Pulse 81 08/14/18 11:19 Resp 18 08/14/18 11:19 BP 93/55 L 08/14/18 11:00 Pulse Ox 92 08/14/18 11:19 Physical Exam: No fever, vital signs are stable, borderline blood pressure, no stridor, S1-S2 regular rate and rhythm, distant crackles bilaterally, abdomen is benign, no edema, cachexia, neurologically he is intact, no oral lesions, no rash. Results & Data Laboratory Results Labs were reviewed which showed leukocytosis, partially due to recent aspiration. Hematocrit has been stable. As BMP has been stable as well. Diagnostic Findings Chest x-ray from today showed left lower lobe infiltrate, hyperinflated lungs, tracheostomy tube in place. (1) Pneumonia involving left lung Lung location: lower lobe of lung Pneumonia type: due to unspecified organism Qualified Code(s): J18.1 - Lobar pneumonia, unspecified organism
[2018-08-14] MEDS: FAMOTIDINE 20 MG TAB JT SCH ×2 (14:18→21:27)
[2018-08-15] MEDS: METOCLOPRAMIDE HCL 5 MG TABLET PO SCH ×4 (00:08→18:15)
[2018-08-15] MEDS: SODIUM CHLORIDE 0.9% 1000ML 1,000 ML IV SCH ×2 (02:52→23:11)
[2018-08-15] MEDS: ALBUT/IPRATROP 3MG/0.5MG NEB 3 ML VIAL INH SCH ×6 (03:10→23:23)
[2018-08-15] MEDS: methylPREDNISolone 40 MG in SYRINGE 0 ML IV SCH ×2 (03:21→16:25)
[2018-08-15] MEDS: HEPARIN SOD 5,000 UNIT/0.5 ML VIAL SQ SCH ×3 (05:24→22:58)
[2018-08-15] MEDS: PIPERACILLIN/TAZOBACTAM 4.5 GM in DEXTROSE 5% 100 ML IV SCH (05:25)
[2018-08-15] MEDS: DIGOXIN 125 MCG in SYRINGE 9.5 ML IV SCH (10:52)
[2018-08-15] MEDS: FLUTICASONE/SALMETEROL (ADVAIR) 500/50 INH 14 PUFF INH SCH ×2 (10:54→20:44)
[2018-08-15] MEDS: ASPIRIN 81 MG CHEW GT SCH (10:55)
[2018-08-15] MEDS: FAMOTIDINE 20 MG TAB JT SCH ×2 (10:55→20:46)
--- NOTE | 2018-08-15 10:55 | Hospitalist Progress Note ---
Date of Service August 15, 2018 Assessment & Plan (1) Atrial fibrillation with rapid ventricular response: Seems to be new onset atrial fibrillation with rapid ventricular response May be contributed by infection Appreciate cardiology input and recommendation Has been on amiodarone drip and the heart rate seems to be controlled Reverted to sinus rhythm Continue beta-kyaw to maintain direct and try to avoid amiodarone as per tram operator Short-term anticoagulation only Rate is controlled and in sinus rhythm Remains stable without any cardiac symptoms (2) Pneumonia involving left lung: Admitted with sepsis likely secondary to pneumonia Pneumonia involves the left middle and lower lobe May be secondary to aspiration ago he has a PEG tube placed for feeding Cultures have been sent Has been on intravenous vancomycin and Zosyn Appreciate editor book input and recommendation Seems to have aspiration or any tracheoesophageal fistula to be present Will have bronchoscopy today and may need to have tracheostomy tube changedno evidence of tracheal esophageal fistula White count is improving Continue current antibiotic We will get chest x-ray tomorrow Finish the course of antibiotic before discharge on Friday (3) Biventricular heart failure: Has history of biventricular heart failure with an EF of around 20% Hold diuretics now No overt CHF at this time Restrict fluid to 1500 mL's a day (4) Sepsis: As above (5) Hyponatremia: Will monitor sodium level Sodium level is 134 today on 08/14 (6) COPD exacerbation: Has history of COPD Exacerbation due to pneumonia continue Solu-Medrol intravenously and antibiotics Remains stable Subjective The patient was seen and examined in the ICU He is a 62-year-old male who was recently in the hospital for acute respiratory failure from chronic obstructive pulmonary disease, pneumonia, congestive heart failure. Presents with respiratory distress, pneumonia and sepsis and rapid atrial fibrillation. Complains to have shortness of breath and generally unwell Feels a little better since admission 08/13 The patient was seen and examined in ICU Noted to have ongoing respiratory distress with audible crackles Reverted to sinus rhythm with controlled heart rate Denies any other symptoms 08/14 The patient was seen and examined in ICU He is a status post bronchoscopy without any evidence of tracheoesophageal fistula He has been feeling a lot better and denies any significant symptoms 08/15 The patient was seen and examined in telemetry unit He has been feeling a lot better denies any symptoms Generally weak He has been moved out of ICU to telemetry unit Physical Exam Vital Signs (Past 24 Hours): Last Vital Signs Temp 36.5 C 08/15/18 10:40 Pulse 79 08/15/18 10:40 Resp 26 H 08/15/18 10:40 BP 122/64 08/15/18 10:40 Pulse Ox 96 08/15/18 10:40 Physical Exam: No apparent distress at rest Constitutional: + ill appearing and + thin Eyes: PERRL, conjunctivae normal, anicteric sclerae ENMT: external ear and nose normal, oropharynx normal Mallampati Class: I Respiratory: normal respiratory effort Auscultation: + diminished lung sounds, + crackles and + wheezes Cardiovascular: Rate/Rhythm: + tachycardic Heart Sounds: normal S1 and normal S2 Gastrointestinal (Abdomen): Inspection/Auscultation: abdomen normal to inspection Percussion/Palpation: abdomen soft Neurologic: awake Generally very weak and lethargy Results & Data Medications Administered Current Inpatient Medications Albuterol (Duoneb) 3 ml INH Q4R [facility] Stop: 09/11/18 03:59 Last Admin: 08/15/18 07:08 Dose: 3 ml Documented by: Aspirin (Aspirin Chew) 81 mg GT DAILY [facility] Stop: 09/11/18 08:59 Last Admin: 08/14/18 07:56 Dose: 81 mg Documented by: Enteral Nutritional Formula (Impact 1.0 Galo) 1,000 ml PEG UD [facility]; Protocol Stop: 09/11/18 15:14 Last Admin: 08/13/18 16:21 Dose: 1,000 ml Documented by: Famotidine (Pepcid) 20 mg JT BID [facility] Stop: 09/13/18 12:25 Last Admin: 08/14/18 21:27 Dose: 20 mg Documented by: Heparin Sodium (Porcine) (Heparin Sodium (Porcine)) 5,000 units SQ Q8 [facility] Stop: 09/11/18 13:59 Last Admin: 08/15/18 05:24 Dose: 5,000 units Documented by: Sodium Chloride (Nss 1000ml) 1,000 mls @ 50 mls/hr IV .Q20H [facility] Stop: 09/11/18 03:19 Last Admin: 08/15/18 02:52 Dose: 50 mls/hr Documented by: Methylprednisolone 40 mg/ (Syringe) 0.64 mls @ 1.5 mls/min IV Q12H [facility] Stop: 09/11/18 15:59 Last Admin: 08/15/18 03:21 Dose: 1.5 mls/min Documented by: Digoxin 125 mcg/ Syringe 10 mls @ 2 mls/min IV Q24H [facility] Stop: 09/13/18 07:59 Last Admin: 08/14/18 07:56 Dose: 2 mls/min Documented by: Piperacillin Sod/Tazobactam (Sod 3.375 gm/ Dextrose) 115 mls @ 28.75 mls/hr IV Q8H [facility]; Protocol Stop: 08/16/18 23:59 Lactulose (Chronulac) 30 gm PO Q6H PRN PRN Reason: until BM daily occured Stop: 09/13/18 13:59 Last Admin: 08/14/18 14:24 Dose: 30 gm Documented by: Metoclopramide HCl (Reglan) 5 mg PO Q6 [facility] Stop: 09/12/18 17:59 Last Admin: 08/15/18 05:25 Dose: 5 mg Documented by: Metoprolol Tartrate (Lopressor) 50 mg PO BID [facility] Stop: 09/11/18 08:59 Last Admin: 08/14/18 21:26 Dose: 50 mg Documented by: Miscellaneous Information (Consult) 1 ea N/A UD PRN PRN Reason: Consult Stop: 08/16/18 23:59 Montelukast Sodium (Singulair) 10 mg GT QAM [facility] Stop: 09/11/18 08:59 Last Admin: 08/14/18 07:56 Dose: 10 mg Documented by: Polyethylene Glycol (Miralax Powder Packet) 17 gm PO DAILY [facility] Stop: 09/11/18 08:59 Last Admin: 08/14/18 07:56 Dose: 17 gm Documented by: Fluticasone/Salmeterol (Advair Diskus 500/50) 1 puffs INH BID [facility] Stop: 09/11/18 08:59 Last Admin: 08/14/18 21:25 Dose: 1 puffs Documented by: Tiotropium [place] (Spiriva) 1 puffs INH DAILY [facility] Stop: 09/11/18 08:59 Last Admin: 08/14/18 07:55 Dose: 1 puffs Documented by: Zinc Sulfate (Zinc Sulfate) 220 mg GT DAILY [facility] Stop: 09/11/18 08:59 Last Admin: 08/14/18 07:56 Dose: 220 mg Documented by: (1) Pneumonia involving left lung Lung location: lower lobe of lung Pneumonia type: due to unspecified organism Qualified Code(s): J18.1 - Lobar pneumonia, unspecified organism
[2018-08-15] MEDS: TIOTROPIUM BROMIDE 5 PUFF/90 MCG INH INH SCH (10:56)
[2018-08-15] MEDS: METOPROLOL TARTRATE 50 MG TAB PO SCH ×2 (10:56→20:45)
[2018-08-15] MEDS: MONTELUKAST SODIUM 10 MG TABLET GT SCH (10:56)
[2018-08-15] MEDS: POLYETHYLENE (MIRALAX) 17 GM PACK PO SCH (10:57)
[2018-08-15] MEDS: ZINC SULFATE 220 MG CAPSULE GT SCH (10:58)
--- NOTE | 2018-08-15 13:06 | Pulmonology Progress Note ---
Date of Service August 15, 2018 Assessment & Plan (1) Pneumonia involving left lung: Impression: 1. Acute on chronic hypoxic respiratory failure. 2. End-stage COPD. 3. Cardiomyopathy with EF of 20%. 4. Left lower lobe pneumonia, growing Serratia, sensitive to ceftriaxone. 5. Chronic aspiration. 6. Malnourishment. 7. A. fib with RVR. Plan: 1. Continue trach mask with 35% oxygen. 2. No evidence of TE fistula. 3. Keep the cuff deflated. 4. Given the findings on the bronchoscopy specimen, I would change antibiotics to ceftriaxone 1 g IV daily for total of 7 days. 5. Continue with tube feeding and adjusted to goal at 65 mL an hour. 6. Discontinue amiodarone in favor of continuation of Reglan 5 mg 4 times daily via G-tube.. 7. I would add glycopyrrolate. 8. Continue prednisone via PEG tube. 9. Bowel regimen, responding to lactulose. 10. Consider GI consult for extended PEG tube to postpyloric feeding. 11. Discussed with the patient and the nursing staff. 12. Continue digoxin. 13. Address the CODE STATUS, the patient wants to be full code but in the computer it says DNR. Thank you, will follow. Lung location: lower lobe of lung Pneumonia type: due to unspe cified organism Qualified Code(s): J18.1 - Lobar pneumonia, unspecified organism Subjective The patient continued to have frothy secretions and copious amount. No events overnight, balloon of the tracheostomy tube has been down. Tolerating full feeding by the PEG tube. Physical Exam Vital Signs (Past 24 Hours): Last Vital Signs Temp 36.5 C 08/15/18 10:40 Pulse 68 08/15/18 11:22 Resp 18 08/15/18 11:22 BP 122/64 08/15/18 10:40 Pulse Ox 94 08/15/18 11:22 Physical Exam: His vital signs are stable, O2 saturation is 94% on 10 L, via trach mask, no stridor, copious amount of secretions were noted, S1-S2 regular rate and rhythm, distant breath sounds bilaterally, minimal crackles on the left base, abdomen is benign, no edema, cachexia, no focal exam neurologically. No skin rash. No oral thrush. Results & Data Laboratory Results No new labs, glucose slightly elevated, dig level is 0.7. Diagnostic Findings Chest x-ray from yesterday reviewed which showed improved variation in the left base, small effusion. Emphysematous changes.
[2018-08-15] MEDS: cefTRIAXone SODIUM 1,000 MG in DEXTROSE 5% 50 ML IV SCH (13:45)
[2018-08-15] MEDS: GLYCOPYRROLATE 1 MG TAB PO SCH ×2 (13:46→20:46)
[2018-08-15] MEDS ORDERED: PIPERACILLIN/TAZOBACTAM 3.375 GM in DEXTROSE 5% 100 ML IV SCH (14:00)
[2018-08-15] MEDS: IMPACT LIQD 1.0 CAL 1,000 ML BAG PEG SCH (18:39)
[2018-08-16] MEDS: GLYCOPYRROLATE 1 MG TAB PO SCH ×4 (01:30→20:31)
[2018-08-16] MEDS: METOCLOPRAMIDE HCL 5 MG TABLET PO SCH ×4 (01:30→17:59)
[2018-08-16] MEDS: ALBUT/IPRATROP 3MG/0.5MG NEB 3 ML VIAL INH SCH ×6 (03:16→23:35)
[2018-08-16] MEDS: methylPREDNISolone 40 MG in SYRINGE 0 ML IV SCH (04:29)
[2018-08-16] MEDS: HEPARIN SOD 5,000 UNIT/0.5 ML VIAL SQ SCH ×3 (05:02→20:38)
[2018-08-16 06:53] LABS: Hematocrit (blood only) 28.1 % (42-52); Hemoglobin 9.3 g/dL (14.0-18.0); Mean Corpuscular Hgb Conc 33.1 g/dL (32-36); Mean Corpuscular Volume 89.5 fL (80-100); Mean Platelet Volume 8.9 fL (7.4-10.4); Nucleated RBC # (auto) 0.02 K/uL (0-0); Nucleated RBC % (auto) 0.1 %; Platelet Count 275 K/uL (130-400); RDW Standard Deviation 49.4 fL (36.4-46.3); Red Blood Count 3.14 M/uL (4.7-6.1); White Blood Count 16.55 K/uL (4.8-10.8)
[2018-08-16 07:24] LABS: Basophils # (auto) 0.06 K/uL (0-0.2); Basophils % (auto) 0.4 %; Immature Granulocytes # (auto) 1.55 K/uL (0.00-0.02); Immature Granulocytes % (auto) 9.4 %; Lymphocytes % (auto) 4.8 %; Monocytes % (auto) 6.6 %; Neutrophils # (auto) 13.04 K/uL (1.4-6.5); Neutrophils % (auto) 78.8 %
[2018-08-16 07:28] LABS: BUN Creatinine Ratio 73.1 (10-20); Blood Urea Nitrogen 20 mg/dl (7-18); Calcium 7.9 mg/dl (8.5-10.1); Carbon Dioxide 33 mmol/L (21-32); Chloride 97 mmol/L (98-107); Creatinine Clr Calc Pharmacy 207.6 ml/min; Est GFR (African American) > 150.0; Est GFR (Non-African American) 148.6; Glucose 127 mg/dl (70-99); Magnesium 1.9 mg/dl (1.8-2.4); Potassium 4.5 mmol/L (3.5-5.1); Sodium 132 mmol/L (136-145)
[2018-08-16] MEDS: FAMOTIDINE 20 MG TAB JT SCH ×2 (09:38→20:27)
[2018-08-16] MEDS: cefTRIAXone SODIUM 1,000 MG in DEXTROSE 5% 50 ML IV SCH (09:38)
[2018-08-16] MEDS: DIGOXIN 125 MCG in SYRINGE 9.5 ML IV SCH (09:39)
[2018-08-16] MEDS: MONTELUKAST SODIUM 10 MG TABLET GT SCH (09:39)
[2018-08-16] MEDS: METOPROLOL TARTRATE 50 MG TAB PO SCH ×2 (09:39→20:27)
[2018-08-16] MEDS: ZINC SULFATE 220 MG CAPSULE GT SCH (09:40)
[2018-08-16] MEDS: FLUTICASONE/SALMETEROL (ADVAIR) 500/50 INH 14 PUFF INH SCH ×2 (09:40→20:26)
[2018-08-16] MEDS: POLYETHYLENE (MIRALAX) 17 GM PACK PO SCH (09:42)
[2018-08-16] MEDS: ASPIRIN 81 MG CHEW GT SCH (09:42)
--- NOTE | 2018-08-16 11:05 | Hospitalist Progress Note ---
Date of Service August 16, 2018 Assessment & Plan (1) Atrial fibrillation with rapid ventricular response: Seems to be new onset atrial fibrillation with rapid ventricular response May be contributed by infection Appreciate cardiology input and recommendation Has been on amiodarone drip and the heart rate seems to be controlled Reverted to sinus rhythm Continue beta-kyaw to maintain direct and try to avoid amiodarone as per executive assistant Short-term anticoagulation only Rate is controlled and in sinus rhythm Remains stable without any cardiac symptoms (2) Pneumonia involving left lung: Admitted with sepsis likely secondary to pneumonia Pneumonia involves the left middle and lower lobe May be secondary to aspiration ago he has a PEG tube placed for feeding Cultures have been sent Has been on intravenous vancomycin and Zosyn Appreciate refueler input and recommendation Seems to have aspiration or any tracheoesophageal fistula to be present Will have bronchoscopy today and may need to have tracheostomy tube changedno evidence of tracheal esophageal fistula White count is improving Continue current antibiotic Chest x-ray is pending this morning Clinically a lot better likely be discharged tomorrow (3) Biventricular heart failure: Has history of biventricular heart failure with an EF of around 20% Hold diuretics now No overt CHF at this time Restrict fluid to 1500 mL's a day No evidence of heart failure (4) Sepsis: As above (5) Hyponatremia: Will monitor sodium level Sodium level is 134 today on 08/14 Sodium is 132 today (6) COPD exacerbation: Has history of COPD Exacerbation due to pneumonia continue Solu-Medrol intravenously and antibiotics Remains stable Subjective The patient was seen and examined in the ICU He is a 62-year-old male who was recently in the hospital for acute respiratory failure from chronic obstructive pulmonary disease, pneumonia, congestive heart failure. Presents with respiratory distress, pneumonia and sepsis and rapid atrial fibrillation. Complains to have shortness of breath and generally unwell Feels a little better since admission 08/13 The patient was seen and examined in ICU Noted to have ongoing respiratory distress with audible crackles Reverted to sinus rhythm with controlled heart rate Denies any other symptoms 08/14 The patient was seen and examined in ICU He is a status post bronchoscopy without any evidence of tracheoesophageal fistula He has been feeling a lot better and denies any significant symptoms 08/15 The patient was seen and examined in telemetry unit He has been feeling a lot better denies any symptoms Generally weak He has been moved out of ICU to telemetry unit 08/16 He remains in stable Denies any cough and no shortness of breath No fever, chills and or riders Physical Exam Vital Signs (Past 24 Hours): Last Vital Signs Temp 37.1 C 08/16/18 10:13 Pulse 63 08/16/18 10:13 Resp 20 08/16/18 10:13 BP 116/64 08/16/18 10:13 Pulse Ox 96 08/16/18 10:13 Physical Exam: No distress at rest Constitutional: + ill appearing and + thin Eyes: PERRL, conjunctivae normal, anicteric sclerae ENMT: external ear and nose normal, oropharynx normal Mallampati Class: I Respiratory: normal respiratory effort Auscultation: + diminished lung sounds, + crackles and + wheezes Has tracheostomy tube in place Cardiovascular: Rate/Rhythm: + tachycardic Heart Sounds: normal S1 and normal S2 Gastrointestinal (Abdomen): Inspection/Auscultation: abdomen normal to inspection Percussion/Palpation: abdomen soft Musculoskeletal: No acute arthritis involving any of the joints Neurologic: awake Results & Data Laboratory Results Short CBC 08/16/18 Range/Units 06:21 WBC 16.55 H (4.8-10.8) K/uL Hgb 9.3 L (14.0-18.0) g/dL Hct 28.1 L (42-52) % Plt Count 275 (130-400) K/uL BMP 08/16/18 06:21 Sodium 132 L Potassium 4.5 Chloride 97 L Carbon Dioxide 33 H BUN 20 H Creatinine 0.27 L Glucose 127 H Calcium 7.9 L Medications Administered Current Inpatient Medications Albuterol (Duoneb) 3 ml INH Q4R [facility] Stop: 09/11/18 03:59 Last Admin: 08/16/18 10:51 Dose: 3 ml Documented by: Aspirin (Aspirin Chew) 81 mg GT DAILY [facility] Stop: 09/11/18 08:59 Last Admin: 08/16/18 09:42 Dose: 81 mg Documented by: Enteral Nutritional Formula (Impact 1.0 Galo) 1,000 ml PEG UD [facility]; Protocol Stop: 09/11/18 15:14 Last Admin: 08/15/18 18:39 Dose: 1,000 ml Documented by: Famotidine (Pepcid) 20 mg JT BID [facility] Stop: 09/13/18 12:25 Last Admin: 08/16/18 09:38 Dose: 20 mg Documented by: Glycopyrrolate (Robinul) 0.5 mg PO Q6H [facility] Stop: 09/14/18 13:59 Last Admin: 08/16/18 09:39 Dose: 0.5 mg Documented by: Heparin Sodium (Porcine) (Heparin Sodium (Porcine)) 5,000 units SQ Q8 [facility] Stop: 09/11/18 13:59 Last Admin: 08/16/18 05:02 Dose: 5,000 units Documented by: Sodium Chloride (Nss 1000ml) 1,000 mls @ 50 mls/hr IV .Q20H [facility] Stop: 09/11/18 03:19 Last Admin: 08/15/18 23:11 Dose: 50 mls/hr Documented by: Methylprednisolone 40 mg/ (Syringe) 0.64 mls @ 1.5 mls/min IV Q12H [facility] Stop: 09/11/18 15:59 Last Admin: 08/16/18 04:29 Dose: 1.5 mls/min Documented by: Digoxin 125 mcg/ Syringe 10 mls @ 2 mls/min IV Q24H [facility] Stop: 09/13/18 07:59 Last Admin: 08/16/18 09:39 Dose: 2 mls/min Documented by: Ceftriaxone Sodium 1,000 mg/ (Dextrose) 60 mls @ 100 mls/hr IV DAILY [facility] Stop: 08/21/18 09:35 Last Infusion: 08/16/18 10:30 Dose: Infused Documented by: Lactulose (Chronulac) 30 gm PO Q6H PRN PRN Reason: until BM daily occured Stop: 09/13/18 13:59 Last Admin: 08/14/18 14:24 Dose: 30 gm Documented by: Metoclopramide HCl (Reglan) 5 mg PO Q6 [facility] Stop: 09/12/18 17:59 Last Admin: 08/16/18 05:02 Dose: 5 mg Documented by: Metoprolol Tartrate (Lopressor) 50 mg PO BID [facility] Stop: 09/11/18 08:59 Last Admin: 08/16/18 09:39 Dose: 50 mg Documented by: Montelukast Sodium (Singulair) 10 mg GT QAM [facility] Stop: 09/11/18 08:59 Last Admin: 08/16/18 09:39 Dose: 10 mg Documented by: Polyethylene Glycol (Miralax Powder Packet) 17 gm PO DAILY [facility] Stop: 09/11/18 08:59 Last Admin: 08/16/18 09:42 Dose: 17 gm Documented by: Fluticasone/Salmeterol (Advair Diskus 500/50) 1 puffs INH BID [facility] Stop: 09/11/18 08:59 Last Admin: 08/16/18 09:40 Dose: 1 puffs Documented by: Zinc Sulfate (Zinc Sulfate) 220 mg GT DAILY [facility] Stop: 09/11/18 08:59 Last Admin: 08/16/18 09:40 Dose: 220 mg Documented by: (1) Pneumonia involving left lung Lung location: lower lobe of lung Pneumonia type: due to unspecified organism Qualified Code(s): J18.1 - Lobar pneumonia, unspecified organism
--- NOTE | 2018-08-16 11:40 | XRay Report ---
XR chest 1V portable CLINICAL HISTORY: Pneumonia. COMPARISON STUDY: Chest radiograph August 14, 2018. FINDINGS: Tracheostomy tube is noted. Severe emphysema is present. There is no pneumothorax. There ar e trace bilateral pleural effusions. Extensive left lung consolidation is similar to prior exam. IMPRESSION: 1. No significant change in extensive left lung consolidation suggestive of pneumonia. Radiographic f ollow-up to ensure resolution is recommended. 2. Severe emphysema. 3. Trace bilateral pleural effusions. Electronically signed by: Patel Yee M.D. 08/16/2018 11:38 AM
--- NOTE | 2018-08-16 12:09 | Pulmonology Progress Note ---
Date of Service August 16, 2018 Assessment & Plan (1) Pneumonia involving left lung: Impression: 1. Acute on chronic hypoxic respiratory failure. 2. End-stage COPD. 3. Cardiomyopathy with EF of 20%. 4. Left lower lobe pneumonia, growing Serratia, sensitive to ceftriaxone. 5. Chronic aspiration. 6. Malnourishment. 7. A. fib with RVR. Plan: 1. Continue trach mask with 35% oxygen. 2. Continue bronchodilators and trach care as you are doing. 3. Keep the cuff deflated. 4. He may need frequent bronchoscopies. His chest x-ray continued to show atelectasis/consolidation of the left lower lobe. The patient is doing poorly mobilizing his secretions. 5. Continue with tube feeding and adjusted to goal at 65 mL an hour. 6. Reglan 5 mg 4 times daily. 7. Continue glycopyrrolate 4 times daily, I did not seem to affect his bowel movement either. 8. Ceftriaxone for 7 days. 9. Lactulose for bowel regimen. 10. Continue digoxin for rate control of A. fib. 11. Discussed with the patient and the nursing staff. 12. address CODE STATUS. The patient wants full code as he stated to me. 13. Disposition plan per the principal team. 14. Change systemic steroids to prednisone 40 mg via PEG tube. Thank you, will follow. Lung location: lower lobe of lung Pneumonia type: due to unspecified organism Qualified Code(s): J18.1 - Lobar pneumonia, unspecified organism Subjective Still having copious amount of secretions from his trach tube, tolerating tube feeding, no pain, no events overnight. Physical Exam Vital Signs (Past 24 Hours): Last Vital Signs Temp 37.1 C 08/16/18 10:13 Pulse 69 08/16/18 10:51 Resp 18 08/16/18 10:51 BP 116/64 08/16/18 10:13 Pulse Ox 96 08/16/18 10:51 Physical Exam: Vital signs are stable, no fever, S1-S2 regular rate and rhythm, lungs are rhonchorous but distant breath sounds, abdomen is benign, no edema, cachexia, moving 4 extremities. Results & Data Laboratory Results Labs were reviewed which showed leukocytosis, improving, BMP is acceptable. Diagnostic Findings Chest x-ray with persistent left lower lobe consolidation likely from mucoid impaction.
[2018-08-16] MEDS: IMPACT LIQD 1.0 CAL 1,000 ML BAG PEG SCH (13:22)
[2018-08-16] MEDS: SODIUM CHLORIDE 0.9% 1000ML 1,000 ML IV SCH (19:36)
[2018-08-17] MEDS: METOCLOPRAMIDE HCL 5 MG TABLET PO SCH ×2 (01:08→05:17)
[2018-08-17] MEDS: GLYCOPYRROLATE 1 MG TAB PO SCH ×4 (01:09→20:37)
[2018-08-17] MEDS: ALBUT/IPRATROP 3MG/0.5MG NEB 3 ML VIAL INH SCH ×6 (03:20→23:17)
[2018-08-17] MEDS: IMPACT LIQD 1.0 CAL 1,000 ML BAG PEG SCH ×2 (05:18→22:36)
[2018-08-17] MEDS: HEPARIN SOD 5,000 UNIT/0.5 ML VIAL SQ SCH ×3 (05:31→20:39)
[2018-08-17] MEDS ORDERED: Nursing to Pharmacy Communication ONE (08:05)
[2018-08-17] MEDS ORDERED: LACTULOSE SYRUP 30 GM/45 ML UDP GT PRN (08:30)
[2018-08-17] MEDS ORDERED: predniSONE 20 MG TAB PO SCH (09:00)
[2018-08-17] MEDS: FLUTICASONE/SALMETEROL (ADVAIR) 500/50 INH 14 PUFF INH SCH ×2 (09:05→20:36)
[2018-08-17] MEDS: FAMOTIDINE 20 MG TAB JT SCH ×2 (09:05→20:38)
[2018-08-17] MEDS: predniSONE 20 MG TAB GT SCH (09:07)
[2018-08-17] MEDS: cefTRIAXone SODIUM 1,000 MG in DEXTROSE 5% 50 ML IV SCH (09:07)
[2018-08-17] MEDS: MONTELUKAST SODIUM 10 MG TABLET GT SCH (09:08)
[2018-08-17] MEDS: DIGOXIN 125 MCG in SYRINGE 9.5 ML IV SCH (09:08)
[2018-08-17] MEDS: METOPROLOL TARTRATE 50 MG TAB PO SCH ×2 (09:09→20:35)
[2018-08-17] MEDS: ZINC SULFATE 220 MG CAPSULE GT SCH (09:09)
[2018-08-17] MEDS: ASPIRIN 81 MG CHEW GT SCH (09:29)
[2018-08-17] MEDS: POLYETHYLENE (MIRALAX) 17 GM PACK GT SCH (09:30)
[2018-08-17] MEDS ORDERED: cefUROXime axetil 500 MG TAB PO SCH (10:15)
--- NOTE | 2018-08-17 11:29 | Hospitalist Progress Note ---
Date of Service August 17, 2018 Assessment & Plan (1) Atrial fibrillation with rapid ventricular response: Seems to be new onset atrial fibrillation with rapid ventricular response May be contributed by infection Appreciate cardiology input and recommendation Has been on amiodarone drip and the heart rate seems to be controlled Reverted to sinus rhythm Continue beta-kyaw to maintain direct and try to avoid amiodarone as per auto repair technician Short-term anticoagulation only Rate is controlled and in sinus rhythm Remains stable without any cardiac symptoms Remains stable and denies any chest pain, palpitation or shortness of breath (2) Pneumonia involving left lung: Admitted with sepsis likely secondary to pneumonia Pneumonia involves the left middle and lower lobe May be secondary to aspiration ago he has a PEG tube placed for feeding Cultures have been sent Has been on intravenous vancomycin and Zosyn Appreciate cutter operator brick input and recommendation Seems to have aspiration or any tracheoesophageal fistula to be present Will have bronchoscopy today and may need to have tracheostomy tube changedno evidence of tracheal esophageal fistula White count is improving Continue current antibiotic Chest x-ray is pending this morning Clinically a lot better likely be discharged tomorrow We will change antibiotic to Ceftin 500 mg twice daily for 3 more days (3) Biventricular heart failure: Has history of biventricular heart failure with an EF of around 20% Hold diuretics now No overt CHF at this time Restrict fluid to 1500 mL's a day No evidence of heart failure (4) Sepsis: As above (5) Hyponatremia: Will monitor sodium level Sodium level is 134 today on 08/14 Sodium is 132 today 08/16 (6) COPD exacerbation: Has history of COPD Exacerbation due to pneumonia continue Solu-Medrol intravenously and antibiotics Remains stable He has a tendency to accumulate secretions from the bronchial tubes and does not have the capacity to cough it out He may need periaortic bronchoscopy as per cutter operator brick to suction out excessive suppression As of today he does not have any significant crackles on examination Will discuss with the medical van driver at [facility] before discharging the patient Subjective The patient was seen and examined in the ICU He is a 62-year-old male who was recently in the hospital for acute respiratory failure from chronic obstructive pulmonary disease, pneumonia, congestive heart failure. Presents with respiratory distress, pneumonia and sepsis and rapid atrial fibrillation. Complains to have shortness of breath and generally unwell Feels a little better since admission 08/13 The patient was seen and examined in ICU Noted to have ongoing respiratory distress with audible crackles Reverted to sinus rhythm with controlled heart rate Denies any other symptoms 08/14 The patient was seen and examined in ICU He is a status post bronchoscopy without any evidence of tracheoesophageal fistula He has been feeling a lot better and denies any significant symptoms 08/15 The patient was seen and examined in telemetry unit He has been feeling a lot better denies any symptoms Generally weak He has been moved out of ICU to telemetry unit 08/16 He remains in stable Denies any cough and no shortness of breath No fever, chills and or riders 08/17 Patient was seen and examined in telemetry unit He remains stable for the last few days Denies any symptoms as of today He will be transferred back to [facility] this afternoon Physical Exam Vital Signs (Past 24 Hours): Last Vital Signs Temp 36.9 C 08/17/18 07:45 Pulse 80 08/17/18 09:08 Resp 24 08/17/18 07:45 BP 103/63 08/17/18 07:45 Pulse Ox 95 08/17/18 07:45 Physical Exam: No apparent distress at rest Constitutional: + ill appearing and + thin; no acute distress Eyes: PERRL, conjunctivae normal, anicteric sclerae ENMT: external ear and nose normal, oropharynx normal Mallampati Class: I Respiratory: normal respiratory effort Auscultation: + diminished lung sounds, + crackles and + wheezes Tracheostomy site remains stable without any drainage and or inflammation Cardiovascular: Rate/Rhythm: + tachycardic Heart Sounds: normal S1 and normal S2 Gastrointestinal (Abdomen): Inspection/Auscultation: abdomen normal to inspection Percussion/Palpation: abdomen soft PEG tube site remains intact Musculoskeletal: No acute arthritis in any of the joints Neurologic: awake Alert, awake and oriented x3. Generally weak Results & Data Medications Administered Current Inpatient Medications Albuterol (Duoneb) 3 ml INH Q4R [facility] Stop: 09/11/18 03:59 Last Admin: 08/17/18 11:23 Dose: 3 ml Documented by: Aspirin (Aspirin Chew) 81 mg GT DAILY [facility] Stop: 09/11/18 08:59 Last Admin: 08/17/18 09:29 Dose: 81 mg Documented by: Cefuroxime Axetil (Ceftin) 500 mg PO BID [facility] Stop: 08/24/18 10:14 Digoxin (Lanoxin) 0.125 mg PEG DAILY@1600 [facility] Stop: 09/17/18 15:59 Enteral Nutritional Formula (Impact 1.0 Galo) 1,000 ml PEG UD [facility]; Protocol Stop: 09/11/18 15:14 Last Admin: 08/17/18 05:18 Dose: 1,000 ml Documented by: Famotidine (Pepcid) 20 mg JT BID [facility] Stop: 09/13/18 12:25 Last Admin: 08/17/18 09:05 Dose: 20 mg Documented by: Glycopyrrolate (Robinul) 0.5 mg PO Q6H [facility] Stop: 09/14/18 13:59 Last Admin: 08/17/18 09:29 Dose: 0.5 mg Documented by: Heparin Sodium (Porcine) (Heparin Sodium (Porcine)) 5,000 units SQ Q8 [facility] Stop: 09/11/18 13:59 Last Admin: 08/17/18 05:31 Dose: 5,000 units Documented by: Sodium Chloride (Nss 1000ml) 1,000 mls @ 50 mls/hr IV .Q20H [facility] Stop: 09/11/18 03:19 Last Infusion: 08/17/18 09:47 Dose: 50 mls/hr Documented by: Lactulose (Chronulac) 30 gm GT Q6H PRN PRN Reason: until BM daily occured Stop: 09/13/18 13:59 Metoclopramide HCl (Reglan) 5 mg PEG Q6 [facility] Stop: 09/16/18 11:59 Metoprolol Tartrate (Lopressor) 50 mg PO BID [facility]; Protocol Stop: 09/11/18 08:59 Last Admin: 08/17/18 09:09 Dose: 50 mg Documented by: Montelukast Sodium (Singulair) 10 mg GT QAM [facility] Stop: 09/11/18 08:59 Last Admin: 08/17/18 09:08 Dose: 10 mg Documented by: Polyethylene Glycol (Miralax Powder Packet) 17 gm GT DAILY [facility] Stop: 09/11/18 08:59 Last Admin: 08/17/18 09:30 Dose: 17 gm Documented by: Prednisone (Prednisone) 40 mg GT DAILY [facility] Stop: 09/16/18 08:59 Last Admin: 08/17/18 09:07 Dose: 40 mg Documented by: Fluticasone/Salmeterol (Advair Diskus 500/50) 1 puffs INH BID [facility] Stop: 09/11/18 08:59 Last Admin: 08/17/18 09:05 Dose: 1 puffs Documented by: Zinc Sulfate (Zinc Sulfate) 220 mg GT DAILY [facility] Stop: 09/11/18 08:59 Last Admin: 08/17/18 09:09 Dose: 220 mg Documented by: (1) Pneumonia involving left lung Lung location: lower lobe of lung Pneumonia type: due to unspecified organism Qualified Code(s): J18.1 - Lobar pneumonia, unspecified organism
[2018-08-17] MEDS: METOCLOPRAMIDE HCL 5 MG/5 ML UDP PEG SCH ×2 (12:09→17:48)
--- NOTE | 2018-08-17 14:35 | Progress Note ---
DATE: 08/17/2018 TIME OF EXAM: 1:35 p.m. SUBJECTIVE: The patient was seen in room 208. He has a tracheostomy in place and thus he cannot speak. He does indicate he is feeling much better over the past few days. Mucus is coming out fairly easily. He states he is now able to cough it out through the trach. Nurses report they have not needed to do as much suctioning. He denies significant shortness of breath. He denies chest pains. He has a PEG tube in place. He states the feedings are going well. OBJECTIVE: GENERAL: The patient appears comfortable. VITAL SIGNS: Temperature is 36.6. He has had no significant fevers for several days. HEENT: Pupils were reactive. Mouth exam shows some phlegm in the posterior pharynx. Tracheostomy tube is in place. HEART: Heart rate 70 beats per minute. Rhythm regular. Blood pressure is only 95/60. Usually he has been above 100 systolic, but not always. LUNGS: Auscultation of the lung huertas reveals decreased breath sounds on the left compared with the right. Rhonchi are heard bilaterally. Respiratory rate 18. Saturation 96% on room air. ABDOMEN: Inspection of the abdomen reveals a PEG tube in place. Bowel sounds were present. Abdomen was soft. EXTREMITIES: Showed no edema, cyanosis or clubbing. LABORATORY DATA: CBC yesterday showed a white count 16.55. It had been 36.05 on 08/11/2018. Hemoglobin yesterday 9.3. Platelets were 275,000. Bronchial washings from 08/12/2018 showed Serratia marcescens. I have reviewed the patient's x-rays done over the past month. He has a considerable density in the left mid and lower chest area. There was a significant change in the x-rays between 07/29/2018 and 08/11/2018 when this significant increasing density occurred. On the , he did have a left lower lobe infiltrate. On the , there was a dramatic change in the degree of consolidation noted. This would be in the mid and lower on the left side. I would have some concerns because of this appearance that there could be an empyema, loculated in the pleural space. I believe that it should be determined with certainty if at all possible. IMPRESSION: 1. Respiratory failure ? acute on chronic with hypoxia. 2. Left lower lobe pneumonia secondary to Serratia marcescens. 3. Severe chronic obstructive pulmonary disease. 4. Chronic aspiration. COMMENTS AND RECOMMENDATIONS: Case was discussed with Dr. Bowman. Apparently, the patient is felt to be ready for discharge. I believe he should have repeat CT of the chest without contrast prior to discharge to be certain he does not have a loculated empyema.
--- NOTE | 2018-08-17 14:54 | CT Scan Report ---
CT OF THE CHEST WITHOUT IV CONTRAST CLINICAL HISTORY: Evaluate for empyema. COMPARISON STUDY: Chest CT July 14, 2018. CT DOSE: 439.97 mGycm TECHNIQUE: Axial images of the chest were obtained without IV contrast. Images were reviewed in the axial, sagittal, and coronal planes. IV contrast was not administered for this examination. Automat ed exposure control was utilized for the study. A dose lowering technique was utilized adhering to t he principles of ALARA. FINDINGS: Tracheostomy tube is in place. The size of the heart is normal. There is no pericardial ef fusion. There is moderate to severe coronary artery calcification. There are extensive secretions wit hin the left mainstem bronchus and the left lower lobe bronchi. Severe emphysema is noted. There is n o pneumothorax. There is a large complex fluid and gas containing collection within the left pneumoth orax which likely reflects pleural fluid likely within the major fissure. In addition, there is a sm aller posterior left gas containing pleural effusion. There is a small mildly loculated right pleural effusion. Left lower lobe opacity reflects pneumonia. There is mild right lower lobe opacity. No enl arged thoracic lymph nodes are present. Bony thorax is unremarkable. Right upper lobe scarring is pre sent. There are mild secretions within the right mainstem bronchus. IMPRESSION: 1. Large complex fluid and gas containing abnormality within the left hemithorax which favors a locul ated pleural effusion within the major fissure. This may reflect an empyema. A pulmonary abscess coul d appear similar although is considered less likely. 2. Additional small loculated bilateral pleural effusions. 3. Left lower lobe opacity which favors pneumonia. Radiographic follow-up is recommended to ensure re solution. 4. Severe emphysema. 5. Extensive secretions within the airways. Electronically signed by: Patel Yee M.D. 08/17/2018 2:53 PM
[2018-08-17] MEDS: SODIUM CHLORIDE 0.9% 1000ML 1,000 ML IV SCH (17:49)
[2018-08-18] MEDS: GLYCOPYRROLATE 1 MG TAB PO SCH ×4 (01:13→20:03)
[2018-08-18] MEDS: METOCLOPRAMIDE HCL 5 MG/5 ML UDP PEG SCH ×4 (01:14→17:15)
[2018-08-18] MEDS: ALBUT/IPRATROP 3MG/0.5MG NEB 3 ML VIAL INH SCH ×6 (03:11→23:28)
[2018-08-18 05:51] LABS: Hematocrit (blood only) 27.9 % (42-52); Hemoglobin 9.3 g/dL (14.0-18.0); Mean Corpuscular Hgb Conc 33.3 g/dL (32-36); Mean Corpuscular Volume 88.9 fL (80-100); Mean Platelet Volume 8.5 fL (7.4-10.4); Platelet Count 312 K/uL (130-400); RDW Coefficient of Variation 15.7 % (11.5-14.5); RDW Standard Deviation 49.5 fL (36.4-46.3); Red Blood Count 3.14 M/uL (4.7-6.1); White Blood Count 23.54 K/uL (4.8-10.8)
[2018-08-18] MEDS: HEPARIN SOD 5,000 UNIT/0.5 ML VIAL SQ SCH ×3 (06:15→21:26)
[2018-08-18 06:22] LABS: BUN Creatinine Ratio 72.4 (10-20); Blood Urea Nitrogen 18 mg/dl (7-18); Calcium 7.8 mg/dl (8.5-10.1); Carbon Dioxide 35 mmol/L (21-32); Chloride 96 mmol/L (98-107); Creatinine Clr Calc Pharmacy 224.2 ml/min; Est GFR (African American) > 150.0; Est GFR (Non-African American) > 150.0; Glucose 106 mg/dl (70-99); Potassium 4.1 mmol/L (3.5-5.1); Sodium 132 mmol/L (136-145)
[2018-08-18 06:25] LABS: ALC (manual) 1.46 K/uL (1.2-3.4); Lymphocytes # (manual) 1.46 K/uL (1.2-3.4); Lymphocytes % (manual) 6.2 %; Metamyelocytes # (manual) 0.64 K/uL (0-0); Metamyelocytes % (manual) 2.7 %; Monocytes # (manual) 1.04 K/uL (0.11-0.59); Monocytes % (manual) 4.4 %; Myelocytes # (manual) 2.71 K/uL (0-0); Myelocytes % (manual) 11.5 %; Neutrophils % (manual) 75.2 %; RBC Morphology Unremarkable; Toxic Granulation Occasional
[2018-08-18] MEDS: ACETYLCYSTEINE 20% INHAL SOLN ***DISPENSED BY RESP. INH SCH ×2 (07:14→19:46)
[2018-08-18] MEDS: FLUTICASONE/SALMETEROL (ADVAIR) 500/50 INH 14 PUFF INH SCH ×2 (08:24→20:04)
[2018-08-18] MEDS: FAMOTIDINE 20 MG TAB JT SCH ×2 (08:25→20:03)
[2018-08-18] MEDS: predniSONE 20 MG TAB GT SCH (08:25)
[2018-08-18] MEDS: METOPROLOL TARTRATE 50 MG TAB PO SCH ×2 (08:26→20:02)
[2018-08-18] MEDS: MONTELUKAST SODIUM 10 MG TABLET GT SCH (08:26)
--- NOTE | 2018-08-18 08:28 | Consultation Report ---
DATE OF CONSULTATION: 08/18/2018 REASON FOR CONSULTATION: Possible empyema. HISTORY OF PRESENT ILLNESS: This is a sickly 62-year-old male who has been quite ill over the last several months. He has respiratory failure. He has been smoking his entire life. He has had a PEG tube placed and a trach placed. He also has biventricular heart failure with an ejection fraction of 20%. I was asked to evaluate him for this possible empyema when Dr. Kehinde Pino was concerned about his x-rays and ordered a CT scan yesterday. This showed a collection which is probably an empyema, although a lung abscess is a possibility. This patient has been scoped multiple times since he got here and has been admitted on this particular occasion for 6 days, but he was only discharged for a couple of days prior to coming back to the hospital. He is awake and alert, and I interviewed him earlier this morning on 08/18/2018. PAST MEDICAL HISTORY: 1. Long history of cigarette use. 2. Gastroesophageal reflux disease which is creating a problem now. 3. Biventricular heart failure. 4. Decreased left ventricular ejection fraction of 20%. 5. Paroxysmal atrial fibrillation. 6. Hypertension. 7. History of hepatitis B. 8. Cirrhosis. 9. Malnutrition. PAST SURGICAL HISTORY: 1. Percutaneous endoscopic gastrostomy tube placement. 2. Tracheostomy insertion. ALLERGIES: No known drug allergies. MEDICATIONS: 1. Spironolactone. 2. Metoprolol. 3. Singulair. 4. Lasix. 5. Aspirin. The patient is on multiple medications here including antimicrobials in the form of Levaquin and prednisone. SOCIAL HISTORY: The patient is a [facility] inmate for an extended period of time. He continued to smoke up into this very time. He does not use alcohol or drugs. He is markedly deconditioned at this point. FAMILY MEDICAL HISTORY: Significant for coronary artery disease, myocardial infarctions, renal failure and diabetes mellitus. REVIEW OF SYSTEMS: Please see history of present illness, but the patient is simply a mess. He has pressure wounds. These are superficial. He has anasarca. He apparently has cirrhosis. He is markedly malnourished. He has respiratory failure, cardiac failure. He denies any visual or auditory changes. He has had no neurologic changes. PHYSICAL EXAMINATION: GENERAL: This is a cachectic, ill-appearing, 6 feet, 120-pound male who is awake, alert and oriented. He is a bit disheveled looking. HEENT: His extraocular movements are intact. He has bilateral arcus senilis. His sclerae are pale, but anicteric. His tongue is midline. He actually has no oral mucosal lesions, although he is coughing up quite a bit of sputum. NECK: Thin, supple. CARDIOVASCULAR: He has a clean tracheostomy site with no bleeding or secretions around it. He has markedly decreased breath sounds. He is really not moving air well at all. He has no wheezing this morning. He has a regular rate and rhythm of his heart this morning at about 60 beats per minute. His PEG site is clean. ABDOMEN: Soft. He has obvious anasarca with peripheral edema in his lower extremities and his upper extremities. He has a stage 2 breakdown of his ischial and sacral areas. NEUROLOGIC: He is moving all extremities. He is awake, alert and oriented. DATA REVIEWED: His CT scan is difficult to say where this left-sided process, his lung abscess or an empyema; however, in any event, it needs to be drained. ASSESSMENT AND PLAN: Possible left pleural empyema. I have discussed his case with Dr. Randy Yee. We are going to insert a pigtail catheter. Depending on what we find, I may want to institute the MIST-2 protocol. [facility] JEW[facility] MEDICAL CENTERLucrecia
[2018-08-18] MEDS: POLYETHYLENE (MIRALAX) 17 GM PACK GT SCH (08:36)
--- NOTE | 2018-08-18 09:46 | Progress Note ---
DATE: 08/18/2018 PULMONARY PROGRESS NOTE TIME: 9:00 a.m. SUBJECTIVE: Obtaining the history is difficult as the patient cannot verbalize due to tracheostomy. He indicates that he feels about the same. He still feels congested in the chest. Sometimes mucus comes out, but other times it is difficult to expectorate through the trach. He denies pain. OBJECTIVE: GENERAL: The patient appeared comfortable, but chronically ill. VITAL SIGNS: Temperature is 36.6. He has had no recent fevers. CARDIOVASCULAR: Tracheostomy is in place. No secretions were noted near the trachea. Cardiac rate is 68 per minute. Rhythm is regular. Blood pressure 99/73. Blood pressures have been on the low side for the past 2 days. LUNGS: Respiratory rate 20. Breath sounds are decreased. Scattered rhonchi heard bilaterally. Saturation 92% on room air. ABDOMEN: Soft. Bowel sounds present. EXTREMITIES: Showed no cyanosis, clubbing or edema. IMAGING DATA: CAT scan done yesterday was reviewed and discussed with Dr. Bowman and with Dr. Carlin. The radiologist believes this is a loculated pleural effusion which may well reflect an empyema. That was the concern and the reason we ordered the CAT scan. Cannot entirely exclude a lung abscess. Obviously, severe emphysema was noted. LABORATORY DATA: White count today is 23.54. Two days ago, it was 16.55. Hemoglobin is 9.3, which is stable. Platelets 312,000. The patient remains on steroids, so it is somewhat difficult to assess the leukocytosis, but the fact that it is increased his bothersome. Electrolytes show sodium 132, potassium 4.1, chloride 96, bicarbonate 35. BUN 18, creatinine 0.25. I suspect a very low creatinine reflects poor nutrition. IMPRESSION: 1. Respiratory failure - acute on chronic with hypoxia. 2. Left lower lobe pneumonia secondary to Serratia marcescens. 3. Possible empyema. 4. Severe chronic obstructive pulmonary disease - mainly emphysema. 5. Chronic aspiration. COMMENTS AND RECOMMENDATIONS: The case was discussed with Dr. Carlin again this morning. He believes the apparent empyema should be drained if possible. He was arranging this through radiology. He mentioned the possibility of doing the MIST-2 protocol if the fluid does not drain readily. The patient remains on levofloxacin. If indeed this is an empyema, he will need antibiotics longer than previously anticipated. Agree with your other measures. Consideration could be given to changing the neb treatments to q. 4 hours while awake, so the patient might not need to be disturbed during the night time. I am quite certain any drainage from the procedure today we will get sent for culture, which should probably include aerobic and anaerobic cultures.
[2018-08-18] MEDS: ASPIRIN 81 MG CHEW GT SCH (09:50)
[2018-08-18] MEDS: levoFLOXacin 750 MG TAB PO SCH (09:50)
[2018-08-18] MEDS: ZINC SULFATE 220 MG CAPSULE GT SCH (09:50)
--- NOTE | 2018-08-18 11:50 | CT Scan Report ---
CT-GUIDED DRAINAGE OF LEFT EMPYEMA/LUNG ABSCESS CLINICAL HISTORY: Empyema. COMPARISON STUDY: Chest CT August 17, 2018. PROCEDURE: The procedure, risks and benefits were discussed with the patient. The patient agreed to t he procedure and informed written consent was obtained. The procedure was performed by Dr. Yee following a timeout. Axial unenhanced images through the chest again demonstrated the fluid and gas c ontaining abnormality within the left hemithorax along the major fissure. This represents an empyema or less likely pulmonary abscess. This was targeted for drainage. Skin was prepped and draped in ster ile fashion and local anesthesia was achieved with 1% lidocaine. Under intermittent CT guidance, a 20 -gauge needle was placed within the collection. There was return of purulent fluid. Utilizing [place] er technique, a 12 Israeli locking pigtail catheter was placed within the fluid collection. 215 cc of purulent fluid was aspirated. 60 cc was sent to laboratory for analysis. The catheter was secured in place with suture and StatLock. The patient tolerated the procedure well and no immediate occasions w ere evident. Post procedure CT demonstrated decrease in the amount of fluid within the fluid collecti on. There was no pneumothorax. IMPRESSION: Successful CT-guided placement of a 12 Israeli locking pigtail catheter within the left l travis empyema vs abscess. 215 cc of fluid aspirated. 60 cc sent to the laboratory for Gram stain, cultu re and sensitivity. Electronically signed by: Patel Yee M.D. 08/18/2018 11:48 AM
--- NOTE | 2018-08-18 13:23 | XRay Report ---
XR chest 1V portable CLINICAL HISTORY: s/p left empyema drainage COMPARISON STUDY: 08/16/2018 FINDINGS: There is evidence for severe pulmonary emphysema. A tracheostomy tube is again visualized. There is evidence for interval left-sided empyema drainage. A left-sided pigtail catheter is visualiz ed. There is interval decrease in the size of the loculated left pleural fluid collection. Persistent bilateral pleural effusions are evident. No pneumothorax is delineated.[ IMPRESSION: 1. Interval percutaneous pigtail catheter drainage of a left-sided empyema 2. Severe emphysema 3. No evidence of pneumothorax Electronically signed by: Jose Fields M.D. 08/18/2018 1:22 PM
[2018-08-18] MEDS: SODIUM CHLORIDE 0.9% 1000ML 1,000 ML IV SCH (13:48)
--- NOTE | 2018-08-18 14:21 | Hospitalist Progress Note ---
Date of Service August 18, 2018 Assessment & Plan (1) Atrial fibrillation with rapid ventricular response: Seems to be new onset atrial fibrillation with rapid ventricular response May be contributed by infection Appreciate cardiology input and recommendation Has been on amiodarone drip and the heart rate seems to be controlled Reverted to sinus rhythm Continue beta-kyaw to maintain direct and try to avoid amiodarone as per tacker elastic band Short-term anticoagulation only Rate is controlled and in sinus rhythm Remains stable without any cardiac symptoms Remains stable and denies any chest pain, palpitation or shortness of breath (2) Pneumonia involving left lung: Admitted with sepsis likely secondary to pneumonia Pneumonia involves the left middle and lower lobe May be secondary to aspiration ago he has a PEG tube placed for feeding Cultures have been sent Has been on intravenous vancomycin and Zosyn Appreciate final inspector truck trailer input and recommendation Seems to have aspiration or any tracheoesophageal fistula to be present Will have bronchoscopy today and may need to have tracheostomy tube changedno evidence of tracheal esophageal fistula Has had evaluation by outboard motor tester on CT of the chest without contrast did not show possible empyema involving the lung fissure on the left side Thoracic surgery has been consulted for possible aspiration and/or thoracic tube placement Likely stay for the next few days in the hospital before discharge Continue Levaquin (3) Biventricular heart failure: Has history of biventricular heart failure with an EF of around 20% Hold diuretics now No overt CHF at this time Restrict fluid to 1500 mL's a day No evidence of heart failure (4) Sepsis: As above (5) Hyponatremia: Will monitor sodium level Sodium level is 134 today on 08/14 Sodium is 132 today 08/16 (6) COPD exacerbation: Has history of COPD Exacerbation due to pneumonia continue Solu-Medrol intravenously and antibiotics Remains stable He has a tendency to accumulate secretions from the bronchial tubes and does not have the capacity to cough it out He may need periaortic bronchoscopy as per final inspector truck trailer to suction out excessive suppression As of today he does not have any significant crackles on examination Will discuss with the lpn or medical assistant at [facility] before discharging the patient Subjective The patient was seen and examined in the ICU He is a 62-year-old male who was recently in the hospital for acute respiratory failure from chronic obstructive pulmonary disease, pneumonia, congestive heart failure. Presents with respiratory distress, pneumonia and sepsis and rapid atrial fibrillation. Complains to have shortness of breath and generally unwell Feels a little better since admission 08/13 The patient was seen and examined in ICU Noted to have ongoing respiratory distress with audible crackles Reverted to sinus rhythm with controlled heart rate Denies any other symptoms 08/14 The patient was seen and examined in ICU He is a status post bronchoscopy without any evidence of tracheoesophageal fistula He has been feeling a lot better and denies any significant symptoms 08/15 The patient was seen and examined in telemetry unit He has been feeling a lot better denies any symptoms Generally weak He has been moved out of ICU to telemetry unit 08/16 He remains in stable Denies any cough and no shortness of breath No fever, chills and or riders 08/17 Patient was seen and examined in telemetry unit He remains stable for the last few days Denies any symptoms as of today 08/18 The patient remains a stable without any cough and/or shortness of breath He has noted to have possible empyema involving the left lung fissure and pleural space Dr. Whitmore has been consulted for possible aspiration and/or pleural catheter placement He will be transferred back to [facility] this afternoon Physical Exam Vital Signs (Past 24 Hours): Last Vital Signs Temp 36.6 C 08/18/18 11:57 Pulse 73 08/18/18 13:25 Resp 18 08/18/18 13:25 BP 101/70 08/18/18 13:25 Pulse Ox 96 08/18/18 13:25 Physical Exam: No apparent distress at rest Constitutional: + ill appearing and + thin; no acute distress Eyes: PERRL, conjunctivae normal, anicteric sclerae ENMT: external ear and nose normal, oropharynx normal Mallampati Class: I Respiratory: normal respiratory effort Auscultation: + diminished lung sounds, + crackles and + wheezes Cardiovascular: Rate/Rhythm: + tachycardic Heart Sounds: normal S1 and normal S2 Gastrointestinal (Abdomen): Inspection/Auscultation: abdomen normal to inspection Percussion/Palpation: abdomen soft Neurologic: awake Results & Data Laboratory Results Short CBC 08/18/18 Range/Units 05:33 WBC 23.54 H (4.8-10.8) K/uL Hgb 9.3 L (14.0-18.0) g/dL Hct 27.9 L (42-52) % Plt Count 312 (130-400) K/uL [facility] 08/18/18 05:33 Sodium 132 L Potassium 4.1 Chloride 96 L Carbon Dioxide 35 H BUN 18 Creatinine 0.25 L Glucose 106 H Calcium 7.8 L Medications Administered Current Inpatient Medications Acetylcysteine (Mucomyst 20%) 3 ml INH BIDR [facility] Stop: 08/25/18 07:59 Last Admin: 08/18/18 07:14 Dose: 3 ml Documented by: Albuterol (Duoneb) 3 ml INH Q4R [facility] Stop: 09/11/18 03:59 Last Admin: 08/18/18 11:27 Dose: Not Given Documented by: Aspirin (Aspirin Chew) 81 mg GT DAILY [facility] Stop: 09/11/18 08:59 Last Admin: 08/18/18 09:50 Dose: 81 mg Documented by: Digoxin (Lanoxin) 0.125 mg PEG DAILY@1600 [facility] Stop: 09/17/18 15:59 Enteral Nutritional Formula (Impact 1.0 Galo) 1,000 ml PEG UD [facility]; Protocol Stop: 09/11/18 15:14 Last Admin: 08/17/18 22:36 Dose: 1,000 ml Documented by: Famotidine (Pepcid) 20 mg JT BID [facility] Stop: 09/13/18 12:25 Last Admin: 08/18/18 08:25 Dose: 20 mg Documented by: Glycopyrrolate (Robinul) 0.5 mg PO Q6H [facility] Stop: 09/14/18 13:59 Last Admin: 08/18/18 08:23 Dose: 0.5 mg Documented by: Heparin Sodium (Porcine) (Heparin Sodium (Porcine)) 5,000 units SQ Q8 [facility] Stop: 09/11/18 13:59 Last Admin: 08/18/18 06:15 Dose: 5,000 units Documented by: Sodium Chloride (Nss 1000ml) 1,000 mls @ 50 mls/hr IV .Q20H [facility] Stop: 09/11/18 03:19 Last Admin: 08/18/18 13:48 Dose: 50 mls/hr Documented by: Lactulose (Chronulac) 30 gm GT Q6H PRN PRN Reason: until BM daily occured Stop: 09/13/18 13:59 Levofloxacin (Levaquin) 750 mg PO DAILY [facility] Stop: 08/20/18 09:01 Last Admin: 08/18/18 09:50 Dose: 750 mg Documented by: Metoclopramide HCl (Reglan) 5 mg PEG Q6 [facility] Stop: 09/16/18 11:59 Last Admin: 08/18/18 13:21 Dose: 5 mg Documented by: Metoprolol Tartrate (Lopressor) 50 mg PO BID [facility]; Protocol Stop: 09/11/18 08:59 Last Admin: 08/18/18 08:26 Dose: 50 mg Documented by: Montelukast Sodium (Singulair) 10 mg GT QAM [facility] Stop: 09/11/18 08:59 Last Admin: 08/18/18 08:26 Dose: 10 mg Documented by: Polyethylene Glycol (Miralax Powder Packet) 17 gm GT DAILY [facility] Stop: 09/11/18 08:59 Last Admin: 08/18/18 08:36 Dose: 17 gm Documented by: Prednisone (Prednisone) 40 mg GT DAILY [facility] Stop: 09/16/18 08:59 Last Admin: 08/18/18 08:25 Dose: 40 mg Documented by: Fluticasone/Salmeterol (Advair Diskus 500/50) 1 puffs INH BID [facility] Stop: 09/11/18 08:59 Last Admin: 08/18/18 08:24 Dose: 1 puffs Documented by: Zinc Sulfate (Zinc Sulfate) 220 mg GT DAILY [facility] Stop: 09/11/18 08:59 Last Admin: 08/18/18 09:50 Dose: 220 mg Documented by: (1) Pneumonia involving left lung Lung location: lower lobe of lung Pneumonia type: due to unspecified organism Qualified Code(s): J18.1 - Lobar pneumonia, unspecified organism
[2018-08-18] MEDS: DIGOXIN 0.125 MG/2.5 ML UDP PEG SCH (15:20)
[2018-08-18] MEDS: IMPACT LIQD 1.0 CAL 1,000 ML BAG PEG SCH (18:14)
[2018-08-18] MEDS: OXYCODONE/ACETAMINOPHEN 5mg/325mg TAB PO PRN (21:37)
[2018-08-19] MEDS: GLYCOPYRROLATE 1 MG TAB PO SCH ×4 (01:25→20:20)
[2018-08-19] MEDS: METOCLOPRAMIDE HCL 5 MG/5 ML UDP PEG SCH ×5 (01:26→23:48)
[2018-08-19] MEDS: ALBUT/IPRATROP 3MG/0.5MG NEB 3 ML VIAL INH SCH ×6 (03:38→23:18)
[2018-08-19] MEDS: HEPARIN SOD 5,000 UNIT/0.5 ML VIAL SQ SCH ×3 (06:11→20:21)
[2018-08-19] MEDS: ACETYLCYSTEINE 20% INHAL SOLN ***DISPENSED BY RESP. INH SCH ×2 (07:13→19:20)
[2018-08-19 07:14] LABS: Hemoglobin 9.5 g/dL (14.0-18.0); Mean Corpuscular Hgb Conc 32.8 g/dL (32-36); Mean Corpuscular Volume 89.5 fL (80-100); Mean Platelet Volume 8.9 fL (7.4-10.4); Platelet Count 322 K/uL (130-400); RDW Coefficient of Variation 16.3 % (11.5-14.5); RDW Standard Deviation 51.5 fL (36.4-46.3); Red Blood Count 3.24 M/uL (4.7-6.1); White Blood Count 18.77 K/uL (4.8-10.8)
--- NOTE | 2018-08-19 07:29 | XRay Report ---
XR chest 1V portable HISTORY: 62 years-old Male empyema follow-up study in a patient with left-sided empyema COMPARISON: Chest radiograph 08/18/2018 TECHNIQUE: Portable AP view of the chest FINDINGS: Pigtail drainage catheter appears unchanged with distal tip projected superiorly. Tracheostomy cannul a is unchanged. Cardiac mediastinal and hilar silhouettes are stable. Severe emphysema with chronic i nterstitial coarsening. There is no pneumothorax. Small left pleural effusion with left midlung and l eft basilar opacities redemonstrated. Degenerative changes of the shoulders and spine. IMPRESSION: 1. Stable positioning of the left-sided drainage catheter. No pneumothorax. 2. Small left pleural effusion with left midlung and left lung base opacities, unchanged. 3. Severe emphysema. The above report was generated using voice recognition software. It may contain grammatical, syntax o r spelling errors. Electronically signed by: Jason Marcus M.D. 08/19/2018 7:28 AM
[2018-08-19] MEDS: METOPROLOL TARTRATE 50 MG TAB PO SCH ×2 (07:46→20:21)
[2018-08-19] MEDS: MONTELUKAST SODIUM 10 MG TABLET GT SCH (07:48)
[2018-08-19] MEDS: ZINC SULFATE 220 MG CAPSULE GT SCH (07:48)
[2018-08-19] MEDS: predniSONE 20 MG TAB GT SCH (07:48)
[2018-08-19] MEDS: levoFLOXacin 750 MG TAB PO SCH (07:48)
[2018-08-19] MEDS: FAMOTIDINE 20 MG TAB JT SCH ×2 (07:49→20:21)
[2018-08-19] MEDS: FLUTICASONE/SALMETEROL (ADVAIR) 500/50 INH 14 PUFF INH SCH ×2 (07:50→20:20)
[2018-08-19] MEDS: ASPIRIN 81 MG CHEW GT SCH (07:53)
[2018-08-19] MEDS: OXYCODONE/ACETAMINOPHEN 5mg/325mg TAB PO PRN (07:53)
[2018-08-19] MEDS: POLYETHYLENE (MIRALAX) 17 GM PACK GT SCH (07:53)
[2018-08-19 07:54] LABS: ALC (manual) 1.14 K/uL (1.2-3.4); Eosinophils # (manual) 0.17 K/uL (0-0.5); Eosinophils % (manual) 0.9 %; Lymphocytes # (manual) 1.14 K/uL (1.2-3.4); Lymphocytes % (manual) 6.1 %; Metamyelocytes # (manual) 0.83 K/uL (0-0); Metamyelocytes % (manual) 4.4 %; Monocytes # (manual) 0.49 K/uL (0.11-0.59); Monocytes % (manual) 2.6 %; Myelocytes # (manual) 2.63 K/uL (0-0); RBC Morphology Unremarkable
[2018-08-19 07:55] LABS: BUN Creatinine Ratio 72.1 (10-20); Blood Urea Nitrogen 19 mg/dl (7-18); Calcium 8.1 mg/dl (8.5-10.1); Carbon Dioxide 34 mmol/L (21-32); Chloride 95 mmol/L (98-107); Creatinine Clr Calc Pharmacy 211.1 ml/min; Est GFR (African American) > 150.0; Est GFR (Non-African American) 148.6; Glucose 91 mg/dl (70-99); Potassium 4.3 mmol/L (3.5-5.1); Sodium 131 mmol/L (136-145)
[2018-08-19] MEDS: SODIUM CHLORIDE 0.9% 1000ML 1,000 ML IV SCH (09:46)
--- NOTE | 2018-08-19 11:26 | Hospitalist Progress Note ---
Date of Service August 19, 2018 Assessment & Plan (1) Atrial fibrillation with rapid ventricular response: Seems to be new onset atrial fibrillation with rapid ventricular response May be contributed by infection Appreciate cardiology input and recommendation Has been on amiodarone drip and the heart rate seems to be controlled Reverted to sinus rhythm Continue beta-kyaw to maintain direct and try to avoid amiodarone as per senior unix administrator Short-term anticoagulation only Heart rate is controlled No more cardiac symptoms (2) Pneumonia involving left lung: Admitted with sepsis likely secondary to pneumonia Pneumonia involves the left middle and lower lobe May be secondary to aspiration ago he has a PEG tube placed for feeding Cultures have been sent Has been on intravenous vancomycin and Zosyn Appreciate destination sign repairer input and recommendation Seems to have aspiration or any tracheoesophageal fistula to be present Will have bronchoscopy today and may need to have tracheostomy tube changedno evidence of tracheal esophageal fistula Has had evaluation by cup trimming machine operator on CT of the chest without contrast did not show possible empyema involving the lung fissure on the left side Thoracic surgery has been consulted for possible aspiration and/or thoracic tube placement Status post left thoracotomy tube placement We will continue current antibiotic White cell count has been improving (3) Biventricular heart failure: Has history of biventricular heart failure with an EF of around 20% Hold diuretics now No overt CHF at this time Restrict fluid to 1500 mL's a day No evidence of heart failure (4) Sepsis: As above (5) Hyponatremia: Will monitor sodium level Sodium level is 134 today on 08/14 Sodium is 132 today 08/16 Sodium at 131 on 08/19 (6) COPD exacerbation: Has history of COPD Exacerbation due to pneumonia continue Solu-Medrol intravenously and antibiotics Remains stable He has a tendency to accumulate secretions from the bronchial tubes and does not have the capacity to cough it out He may need periaortic bronchoscopy as per destination sign repairer to suction out excessive suppression As of today he does not have any significant crackles on examination Discussed with the patient about resuscitation status He wanted to be DNR We will discuss with him again Subjective The patient was seen and examined in the ICU He is a 62-year-old male who was recently in the hospital for acute respiratory failure from chronic obstructive pulmonary disease, pneumonia, congestive heart failure. Presents with respiratory distress, pneumonia and sepsis and rapid atrial fibrillation. Complains to have shortness of breath and generally unwell Feels a little better since admission 08/13 The patient was seen and examined in ICU Noted to have ongoing respiratory distress with audible crackles Reverted to sinus rhythm with controlled heart rate Denies any other symptoms 08/14 The patient was seen and examined in ICU He is a status post bronchoscopy without any evidence of tracheoesophageal fistula He has been feeling a lot better and denies any significant symptoms 08/15 The patient was seen and examined in telemetry unit He has been feeling a lot better denies any symptoms Generally weak He has been moved out of ICU to telemetry unit 08/16 He remains in stable Denies any cough and no shortness of breath No fever, chills and or riders 08/17 Patient was seen and examined in telemetry unit He remains stable for the last few days Denies any symptoms as of today 08/18 The patient remains a stable without any cough and/or shortness of breath He has noted to have possible empyema involving the left lung fissure and pleural space Dr. Whitmore has been consulted for possible aspiration and/or pleural catheter placement He will be transferred back to [facility] this afternoon 08/19 He is status post the left thoracotomy tube insertion Remains stable and denies any increasing shortness of breath or cough Denies any fever and/or chills, any nausea and/or vomiting Physical Exam Vital Signs (Past 24 Hours): Last Vital Signs Temp 36.5 C 08/19/18 11:11 Pulse 76 08/19/18 11:11 Resp 18 08/19/18 11:11 BP 102/55 L 08/19/18 11:11 Pulse Ox 93 08/19/18 11:11 Physical Exam: No apparent distress at rest Constitutional: + ill appearing and + thin; no acute distress Eyes: PERRL, conjunctivae normal, anicteric sclerae ENMT: external ear and nose normal, oropharynx normal Mallampati Class: I Respiratory: normal respiratory effort Auscultation: + diminished lung sounds, + crackles and + wheezes Has left-sided chest tube in situ Cardiovascular: Rate/Rhythm: + tachycardic Heart Sounds: normal S1 and normal S2 Gastrointestinal (Abdomen): Inspection/Auscultation: abdomen normal to inspection Percussion/Palpation: abdomen soft Neurologic: awake Results & Data Laboratory Results Short CBC 08/19/18 Range/Units 06:58 WBC 18.77 H (4.8-10.8) K/uL Hgb 9.5 L (14.0-18.0) g/dL Hct 29.0 L (42-52) % Plt Count 322 (130-400) K/uL [facility] 08/19/18 06:58 Sodium 131 L Potassium 4.3 Chloride 95 L Carbon Dioxide 34 H BUN 19 H Creatinine 0.27 L Glucose 91 Calcium 8.1 L Medications Administered Current Inpatient Medications Acetylcysteine (Mucomyst 20%) 3 ml INH BIDR [facility] Stop: 08/25/18 07:59 Last Admin: 08/19/18 07:13 Dose: 3 ml Documented by: Albuterol (Duoneb) 3 ml INH Q4R [facility] Stop: 09/11/18 03:59 Last Admin: 08/19/18 11:04 Dose: 3 ml Documented by: Aspirin (Aspirin Chew) 81 mg GT DAILY [facility] Stop: 09/11/18 08:59 Last Admin: 08/19/18 07:53 Dose: 81 mg Documented by: Digoxin (Lanoxin) 0.125 mg PEG DAILY@1600 [facility] Stop: 09/17/18 15:59 Last Admin: 08/18/18 15:20 Dose: 0.125 mg Documented by: Enteral Nutritional Formula (Impact 1.0 Galo) 1,000 ml PEG UD [facility]; Protocol Stop: 09/11/18 15:14 Last Admin: 08/18/18 18:14 Dose: 1,000 ml Documented by: Famotidine (Pepcid) 20 mg JT BID [facility] Stop: 09/13/18 12:25 Last Admin: 08/19/18 07:49 Dose: 20 mg Documented by: Glycopyrrolate (Robinul) 0.5 mg PO Q6H [facility] Stop: 09/14/18 13:59 Last Admin: 08/19/18 07:48 Dose: 0.5 mg Documented by: Heparin Sodium (Porcine) (Heparin Sodium (Porcine)) 5,000 units SQ Q8 [facility] Stop: 09/11/18 13:59 Last Admin: 08/19/18 06:11 Dose: 5,000 units Documented by: Sodium Chloride (Nss 1000ml) 1,000 mls @ 50 mls/hr IV .Q20H [facility] Stop: 09/11/18 03:19 Last Admin: 08/19/18 09:46 Dose: 50 mls/hr Documented by: Lactulose (Chronulac) 30 gm GT Q6H PRN PRN Reason: until BM daily occured Stop: 09/13/18 13:59 Levofloxacin (Levaquin) 750 mg PO DAILY [facility] Stop: 08/20/18 09:01 Last Admin: 08/19/18 07:48 Dose: 750 mg Documented by: Metoclopramide HCl (Reglan) 5 mg PEG Q6 [facility] Stop: 09/16/18 11:59 Last Admin: 08/19/18 06:11 Dose: 5 mg Documented by: Metoprolol Tartrate (Lopressor) 50 mg PO BID [facility]; Protocol Stop: 09/11/18 08:59 Last Admin: 08/19/18 07:46 Dose: Not Given Documented by: Montelukast Sodium (Singulair) 10 mg GT QAM [facility] Stop: 09/11/18 08:59 Last Admin: 08/19/18 07:48 Dose: 10 mg Documented by: Oxycodone/Acetaminophen (Percocet 5mg/325mg) 1 tab PO Q4H PRN PRN Reason: Pain Stop: 09/01/18 20:42 Last Admin: 08/19/18 07:53 Dose: 1 tab Documented by: Polyethylene Glycol (Miralax Powder Packet) 17 gm GT DAILY [facility] Stop: 09/11/18 08:59 Last Admin: 08/19/18 07:53 Dose: 17 gm Documented by: Prednisone (Prednisone) 40 mg GT DAILY [facility] Stop: 09/16/18 08:59 Last Admin: 08/19/18 07:48 Dose: 40 mg Documented by: Fluticasone/Salmeterol (Advair Diskus 500/50) 1 puffs INH BID [facility] Stop: 09/11/18 08:59 Last Admin: 08/19/18 07:50 Dose: 1 puffs Documented by: Zinc Sulfate (Zinc Sulfate) 220 mg GT DAILY [facility] Stop: 09/11/18 08:59 Last Admin: 08/19/18 07:48 Dose: 220 mg Documented by: (1) Pneumonia involving left lung Lung location: lower lobe of lung Pneumonia type: due to unspecified organism Qualified Code(s): J18.1 - Lobar pneumonia, unspecified organism
--- NOTE | 2018-08-19 12:19 | Progress Note ---
DATE: 08/19/2018 PULMONARY PROGRESS NOTE TIME: 11:25 a.m. SUBJECTIVE: The patient states he is feeling much better since he had the drainage tube placed. He is coughing up phlegm much easier as well. He feels less short of breath. OBJECTIVE: GENERAL: The patient appeared comfortable. HEART: Heart rate 76 per minute. Rhythm is regular. Blood pressure 102/55. LUNGS: Lung huertas revealed diminished breath sounds diffusely, but especially on the left. Respiratory rate 18. VITAL SIGNS: Temperature 36.5. He has had no fevers. Saturation 93% on a trach collar. A drainage catheter was inserted yesterday by Dr. Yee of the radiology department. He reported that 215 mL of fluid were removed at that time. He is still draining some. Thus far today, he has had 50 mL. The initial Gram stain of the pleural fluid from yesterday reports many gram-negative bacilli. Previously, Serratia marcescens had been cultured out of the bronchial washings. White count today is 18.77 and yesterday was 23.54. Hemoglobin 9.5. IMPRESSION: 1. Respiratory failure -- acute on chronic with hypoxia. 2. Left lower lobe pneumonia secondary to Serratia marcescens. 3. Empyema. 4. Chronic obstructive pulmonary disease. 5. Chronic aspiration. 6. Status post tracheostomy. COMMENTS: The patient clinically is doing well. His chest x-ray from today shows improvement in the previously seen density throughout the left mid and lower chest secondary to the empyema. There is a drainage catheter still in place. Suggest continuing the levofloxacin. He will likely need at least a total of 2 weeks of antibiotics in light of the empyema. The drainage of course is also important. We will decrease the prednisone to 30 mg per day in light of this infection.
[2018-08-19] MEDS: DIGOXIN 0.125 MG/2.5 ML UDP PEG SCH (17:15)
--- NOTE | 2018-08-19 19:29 | Progress Note ---
DATE: 08/19/2018 Mr. Shirley was seen today. He is growing out gram negative rods from this purulent fluid, but the fluid has turned more serous and is only about 110 mL today. His white count came down from 23,540 to 18,770 after this drainage and he has improved since Dr. Yee placed his drain yesterday. He has a very small air leak and I think this will stop on its own. At this point, I am going to order a CT scan of his chest tomorrow to assess what is left fluid alves. He is concerning as he would be such a poor operative risk.
[2018-08-20] MEDS: GLYCOPYRROLATE 1 MG TAB PO SCH ×4 (02:02→20:59)
[2018-08-20] MEDS: ALBUT/IPRATROP 3MG/0.5MG NEB 3 ML VIAL INH SCH ×6 (03:05→23:08)
[2018-08-20] MEDS: IMPACT LIQD 1.0 CAL 1,000 ML BAG PEG SCH (04:05)
[2018-08-20] MEDS: METOCLOPRAMIDE HCL 5 MG/5 ML UDP PEG SCH ×4 (05:04→23:32)
[2018-08-20] MEDS: HEPARIN SOD 5,000 UNIT/0.5 ML VIAL SQ SCH ×3 (05:04→21:00)
[2018-08-20] MEDS: SODIUM CHLORIDE 0.9% 1000ML 1,000 ML IV SCH (05:06)
[2018-08-20] MEDS: ACETYLCYSTEINE 20% INHAL SOLN ***DISPENSED BY RESP. INH SCH ×2 (07:09→19:14)
--- NOTE | 2018-08-20 07:09 | XRay Report ---
XR chest 1V portable CLINICAL HISTORY: empyema dyspnea COMPARISON STUDY: 08/19/2018 FINDINGS: Left hemithoracic drainage catheter unchanged in position. Slight improvement in aeration l eft lung base. Right lung remains grossly clear. Tracheostomy tube is in position. IMPRESSION: 1. Unchanged position of the left hemithoracic drainage catheter. 2. Slight improvement in aeration left base. 3. The exam is otherwise unchanged. The above report was generated using voice recognition software. It may contain grammatical, syntax or spelling errors. Electronically signed by: Joo Agosto M.D. 08/20/2018 7:08 AM
--- NOTE | 2018-08-20 08:41 | CT Scan Report ---
CT chest wo con CT DOSE: 376.00 mGycm HISTORY: Dyspnea. Tube position. empyema TECHNIQUE: Multiaxial CT images of the chest were performed without contrast. A dose lowering techni que was utilized adhering to the principles of ALARA. COMPARISON: 08/17/2018 FINDINGS: Improved CT of the chest post left drainage catheter placement. The empyema previously desc ribed is considerably diminished in volume. There is persistent consolidative change throughout the l eft base and posterior left lower lobe. Small right effusion is present. There is a pleural-based cur vilinear density over the right lung base unchanged in the prior study which may indicate a slight lo culated component. Baseline emphysematous changes present. Tracheostomy tube is in good position. Several small reactive mediastinal nodes are stable There is debris within the left mainstem bronchus as well as left lower lobe bronchial system. This w ould indicate a potential aspiration. Minimal changes seen involving the right lower lobe bronchial s ystem. IMPRESSION: 1. Improved empyema left lung base post left drainage tube placement. 2. Considerable additional consolidative change left and to a much lesser extent right base. 3. Baseline emphysematous change is unaltered. 4. Extensive debris within the left mainstem bronchus as well as left lower lobe bronchial systems wh ich potentially indicates a component of aspiration. 5. Smaller but nevertheless significant debris within the distal aspect of the right lower lobe bronc hial system. The above report was generated using voice recognition software. It may contain grammatical, syntax or spelling errors. Electronically signed by: Joo Agosto M.D. 08/20/2018 8:40 AM
--- NOTE | 2018-08-20 09:12 | XRay Report ---
XR chest 1V portable HISTORY: 63 years-old Male empyema follow up study in a patient with left-sided empyema COMPARISON: Chest CT of same day, chest radiograph 08/20/2018 7:01 AM TECHNIQUE: Portable AP view of the chest FINDINGS: Tracheostomy cannula overlies the midline, unchanged. Cardiomediastinal and hilar silhouettes are unc hanged. Advanced emphysema with chronic fibrotic changes. Stable positioning of the left-sided pleura l drainage catheter with persistent unchanged left greater than right bilateral pleural effusions and bibasilar opacities. There is no overt pulmonary edema. Degenerative changes of the shoulders and sp ine. IMPRESSION: 1. Stable positioning of the left-sided pleural drainage catheter. No pneumothorax. 2. Advanced emphysema with fibrotic changes redemonstrated. 3. Unchanged small left and trace right pleural effusions. 4. Persistent airspace opacities about the left greater than right lung bases and left midlung. Pleas e refer to chest CT of same day for further details. The above report was generated using voice recognition software. It may contain grammatical, syntax o r spelling errors. Electronically signed by: Jason Marcus M.D. 08/20/2018 9:10 AM
--- NOTE | 2018-08-20 09:48 | Progress Note ---
DATE: 08/20/2018 Mr. Shirley was seen today. He feels better. His pigtail catheter is not really putting out much. He has been afebrile and he states that he feels "fine." He is on a trach collar. I had a CT scan without contrast performed and while his CT has improved, they are still significant amount of fluid and the pigtail appears to be appropriately placed. We are going to institute the MIST-2 protocol. It should be noted that if he has no air leak now, however, he could develop one after this necessitating the insertion of a regular chest tube, but I do not think we have much of a choice. The patient is not an operative candidate. We will try the MIST-2 protocol and assess his response.
[2018-08-20] MEDS: OXYCODONE/ACETAMINOPHEN 5mg/325mg TAB PO PRN ×2 (10:14→23:32)
[2018-08-20] MEDS: DORNASE ALFA 5 ML in SYRINGE 25 ML IPL SCH ×2 (10:15→23:32)
[2018-08-20] MEDS: FLUTICASONE/SALMETEROL (ADVAIR) 500/50 INH 14 PUFF INH SCH ×2 (10:15→20:59)
[2018-08-20] MEDS: levoFLOXacin 750 MG TAB PO SCH (10:16)
[2018-08-20] MEDS: MONTELUKAST SODIUM 10 MG TABLET GT SCH (10:16)
[2018-08-20] MEDS: predniSONE 10 MG TABLET GT SCH (10:16)
[2018-08-20] MEDS: FAMOTIDINE 20 MG TAB JT SCH ×2 (10:17→20:59)
[2018-08-20] MEDS: ZINC SULFATE 220 MG CAPSULE GT SCH (10:18)
[2018-08-20] MEDS: ALTEPLASE, RECOMBINANT 10 MG in SYRINGE 50 ML IPL SCH ×2 (10:18→22:17)
[2018-08-20] MEDS: METOPROLOL TARTRATE 50 MG TAB PO SCH ×2 (10:18→21:00)
[2018-08-20] MEDS: ASPIRIN 81 MG CHEW GT SCH (10:19)
[2018-08-20] MEDS: POLYETHYLENE (MIRALAX) 17 GM PACK GT SCH (10:20)
--- NOTE | 2018-08-20 10:54 | Procedure Note ---
Procedure Note: Bronchoscopy Procedure Procedure date: August 20, 2018 Procedure: fiberoptic bronchoscopy Pre-procedure indication: Mucoid impaction of bronchi debris in left main bronchus Post-procedure Diagnosis: same as above Prior to Procedure: Informed Consent: The risks, benefits, indications, potential complications, and alternatives were explained to the patient and informed consent obtained. Attending Staff: Yordan Nino DO Resident/APC: Anushka ROCK Skin Prep: Not applicable Anesthesia: 100 mcg fentanyl IV x1, Versed 2 mg IV x1 The identity of the patient was confirmed and a bedside time out was performed. Description of Procedure: Fiberoptic bronchoscopy was performed via endotracheal tube. Bronchioalveolar lavage left lower lobes was performed. Findings included: Thick white secretions in the left main bronchus and lower lobes, no evidence of hyperemia, right lobes appeared pink with thin clear secretions Complications: Please refer to conscious sedation flowsheet Specimens: Bronchial washings sent for culture and Gram stain, cytology, fungal elements, and AFB stain and culture. Estimated blood loss: Zero
--- NOTE | 2018-08-20 10:55 | Pre Anesthesia Assessment ---
Date of Service August 20, 2018 Pre Sedation Assessment Vital Signs Temp Pulse Pulse Resp BP BP Pulse Ox 08/20/18 08:31 37.2 C 75 20 112/64 90 08/20/18 07:10 81 16 93 08/20/18 05:39 36.5 C 76 21 108/59 L 93 08/20/18 04:01 76 18 96 08/20/18 00:10 36.7 C 68 18 103/50 L 96 08/20/18 00:03 36.5 C 70 18 110/60 97 08/19/18 23:18 69 18 96 08/19/18 20:15 36.8 C 73 20 104/60 97 08/19/18 19:30 76 18 95 08/19/18 15:50 36.7 C 78 18 94/54 L 95 08/19/18 15:21 73 18 95 08/19/18 11:11 36.5 C 76 18 102/55 L 93 08/19/18 11:06 79 18 94 Pre-Sedation Airway Assessment Smoking Status: Former smoker Hx Sleep Apnea: No Mallampati Class: I NPO Status Last Intake of Solids Comment: Patient had a PEG tube Notes The planned sedation has been discussed with the patient. Informed Consent was obtained. I have identified the patient, determined the appropriateness of sedation and have assessed the patient immediately prior to the procedure. All medicine(s) and interventions are by my order. Patient has PEG tube, contents suctioned. > 8 hours NPO. Given 10 mg reglan. Planned moderate sedation with fentanyl and versed through tracheostomy. ASA class 3. CVS: s1, s2 rrr Pulm: course sounds bilaterally ABD: peg present, soft non-tender no distention. Neuro A/Ox3, appropriate, consents to bronchoscopy and sedation. vitals signs reviewed, labs reviewed
--- NOTE | 2018-08-20 10:55 | Post Anesthesia Assessment ---
Date of Service August 20, 2018 Post Sedation Assessment Vital Signs Temp Pulse Pulse Resp BP BP Pulse Ox 08/20/18 08:31 37.2 C 75 20 112/64 90 08/20/18 07:10 81 16 93 08/20/18 05:39 36.5 C 76 21 108/59 L 93 08/20/18 04:01 76 18 96 08/20/18 00:10 36.7 C 68 18 103/50 L 96 08/20/18 00:03 36.5 C 70 18 110/60 97 08/19/18 23:18 69 18 96 08/19/18 20:15 36.8 C 73 20 104/60 97 08/19/18 19:30 76 18 95 08/19/18 15:50 36.7 C 78 18 94/54 L 95 08/19/18 15:21 73 18 95 Recovery Score Activity: Moves 4 extremities Respiration: Deep Breath/Cough Circulation: +/-20% PreAnes Value Consciousness: Fully Awake Oxygen Saturation: O2 needed for >90% Post Anesthesia Score: 9 Post Sedation Plan On clinical assessment, the patient appears to have tolerated the sedation without complications. Patient is recovering as anticipated. Patient will continue to be monitored by nursing and may be discharged when sedation discharge criteria are met per below protocol. Upon Completions of procedure and additional 15 minutes continue every 5 minute vital signs and the P.A.R. score; then discharge to a Phase I or Fast Track to Phase II per the following guidelines: * Discharge Patient to appropriate Phase II area if PAR is 8 or greater or return to pre- procedure baseline. The post - procedure orders will be as directed. * If PAR score is less than 8 or not return to pre-procedure baseline then patient will follow Phase I monitoring till PAR is reached for Phase II. The Phase I may be done in procedure room or may call to secure a Phase I area. * If naloxone or flumazenil are used for reversal, hold in Phase I for continued monitoring from when last reversal dose was given for a minimum of 60 minutes or longer pending the nurse and/or physician discretion of patient condition before discharge to Phase II. Please call the Sedation Physician to re-evaluate and complete post-note for discharge to Phase II area. Do NOT discharge from procedure sedation or Phase 1 until post- sedation evaluation note is complete by procedure /sedation MD Sedation Discharge Instructions to be given to the patient at discharge to home. Procedural start time 1110 Procedural end time 1120 Total medication given: 100 mcg fentanyl IV x1 2 mg Versed IV x1 Reglan 10 mg IV x1 Complication: Patient had transient desaturation down to 85% which responded to inflation of tracheostomy tube cuff and manual bagging. Patient had decrease in blood pressure to 70 systolic which immediately responded to 500 mL bolus of saline. Patient is currently alert oriented his vital signs are back to his presedation values and he appears to have suffered no ill effects.
[2018-08-20] MEDS ORDERED: fentaNYL citrate 100 MCG/2 ML VIAL IV STA (10:59)
[2018-08-20] MEDS ORDERED: fentaNYL citrate 100 MCG/2 ML VIAL ONE (10:59)
[2018-08-20] MEDS ORDERED: METOCLOPRAMIDE HCL INJ 5 MG/ML 2 ML VIAL IV STA (10:59)
[2018-08-20] MEDS ORDERED: MIDAZOLAM HCL 5 MG/ML 1 ML VIAL IV STA (10:59)
[2018-08-20] MEDS ORDERED: MIDAZOLAM HCL 5 MG/ML 1 ML VIAL ONE (11:01)
[2018-08-20] MEDS ORDERED: METOCLOPRAMIDE HCL INJ 5 MG/ML 2 ML VIAL ONE (11:02)
--- NOTE | 2018-08-20 13:20 | Hospitalist Progress Note ---
Date of Service August 20, 2018 Assessment & Plan (1) Atrial fibrillation with rapid ventricular response: Seems to be new onset atrial fibrillation with rapid ventricular response May be contributed by infection Appreciate cardiology input and recommendation Has been on amiodarone drip and the heart rate seems to be controlled Reverted to sinus rhythm Continue beta-kyaw to maintain direct and try to avoid amiodarone as per supervisor data processing Short-term anticoagulation only Heart rate is controlled No more cardiac symptoms (2) Pneumonia involving left lung: Admitted with sepsis likely secondary to pneumonia Pneumonia involves the left middle and lower lobe May be secondary to aspiration ago he has a PEG tube placed for feeding Cultures have been sent Has been on intravenous vancomycin and Zosyn Appreciate traffic assistant input and recommendation Seems to have aspiration or any tracheoesophageal fistula to be present Will have bronchoscopy today and may need to have tracheostomy tube changedno evidence of tracheal esophageal fistula Has had evaluation by student career development specialist on CT of the chest without contrast did not show possible empyema involving the lung fissure on the left side Thoracic surgery has been consulted for possible aspiration and/or thoracic tube placement Status post left thoracotomy tube placement We will continue current antibiotic White cell count has been improving We will continue Levaquin for 14 days in total as per student career development specialist (3) Biventricular heart failure: Has history of biventricular heart failure with an EF of around 20% Hold diuretics now No overt CHF at this time Restrict fluid to 1500 mL's a day No evidence of heart failure (4) Sepsis: As above (5) Hyponatremia: Will monitor sodium level Sodium level is 134 today on 08/14 Sodium is 132 today 08/16 Sodium at 131 on 08/19 (6) COPD exacerbation: Has history of COPD Exacerbation due to pneumonia continue Solu-Medrol intravenously and antibiotics Remains stable He has a tendency to accumulate secretions from the bronchial tubes and does not have the capacity to cough it out He may need periaortic bronchoscopy as per traffic assistant to suction out excessive suppression As of today he does not have any significant crackles on examination Discussed with the patient about resuscitation status He wanted to be DNR We will discuss with him again (7) Empyema of left pleural space: CT of the chest did show empyema involving the left pleural space and left major fissure Appreciate thoracic surgery input and thoracentesis with them thoracostomy tube placement Repeat chest x-ray showed improvement We will continue current antibiotic for 14 days in total (8) Mucus plugging of bronchi: Status post bronchoscopy and suction today He does not have significant cough reflex and cannot bring out excessive secretions We will need periodic bronchoscopy as per traffic assistant Monitor for shortness of breath and desaturation Subjective The patient was seen and examined in the ICU He is a 62-year-old male who was recently in the hospital for acute respiratory failure from chronic obstructive pulmonary disease, pneumonia, congestive heart failure. Presents with respiratory distress, pneumonia and sepsis and rapid atrial fibrillation. Complains to have shortness of breath and generally unwell Feels a little better since admission 08/13 The patient was seen and examined in ICU Noted to have ongoing respiratory distress with audible crackles Reverted to sinus rhythm with controlled heart rate Denies any other symptoms 08/14 The patient was seen and examined in ICU He is a status post bronchoscopy without any evidence of tracheoesophageal fistula He has been feeling a lot better and denies any significant symptoms 08/15 The patient was seen and examined in telemetry unit He has been feeling a lot better denies any symptoms Generally weak He has been moved out of ICU to telemetry unit 08/16 He remains in stable Denies any cough and no shortness of breath No fever, chills and or riders 08/17 Patient was seen and examined in telemetry unit He remains stable for the last few days Denies any symptoms as of today 08/18 The patient remains a stable without any cough and/or shortness of breath He has noted to have possible empyema involving the left lung fissure and pleural space Dr. Whitmore has been consulted for possible aspiration and/or pleural catheter placement He will be transferred back to [facility] this afternoon 08/19 He is status post the left thoracotomy tube insertion Remains stable and denies any increasing shortness of breath or cough Denies any fever and/or chills, any nausea and/or vomiting 08/20 The patient was seen and examined in telemetry unit He has been feeling a lot better Complains to have some pain at the left thoracotomy tube site Discussed the CODE STATUS with the patient in detail again The patient remains DNR Physical Exam Vital Signs (Past 24 Hours): Last Vital Signs Temp 36.6 C 08/20/18 11:30 Pulse 77 08/20/18 12:00 Resp 16 08/20/18 12:00 BP 110/58 L 08/20/18 12:00 Pulse Ox 98 08/20/18 12:00 Physical Exam: No apparent distress at rest Constitutional: + ill appearing and + thin; no acute distress Eyes: PERRL, conjunctivae normal, anicteric sclerae ENMT: external ear and nose normal, oropharynx normal Mallampati Class: I Respiratory: normal respiratory effort Auscultation: + diminished lung sounds, + crackles and + wheezes Cardiovascular: Rate/Rhythm: + tachycardic Heart Sounds: normal S1 and normal S2 Gastrointestinal (Abdomen): Inspection/Auscultation: abdomen normal to inspection Percussion/Palpation: abdomen soft Musculoskeletal: No acute arthritis any of the joints Neurologic: awake Results & Data Medications Administered Current Inpatient Medications Acetylcysteine (Mucomyst 20%) 3 ml INH BIDR [facility] Stop: 08/25/18 07:59 Last Admin: 08/20/18 07:09 Dose: 3 ml Documented by: Albuterol (Duoneb) 3 ml INH Q4R [facility] Stop: 09/11/18 03:59 Last Admin: 08/20/18 07:09 Dose: 3 ml Documented by: Aspirin (Aspirin Chew) 81 mg GT DAILY [facility] Stop: 09/11/18 08:59 Last Admin: 08/20/18 10:19 Dose: 81 mg Documented by: Digoxin (Lanoxin) 0.125 mg PEG DAILY@1600 [facility] Stop: 09/17/18 15:59 Last Admin: 08/19/18 17:15 Dose: 0.125 mg Documented by: Enteral Nutritional Formula (Impact 1.0 Galo) 1,000 ml PEG UD [facility]; Protocol Stop: 09/11/18 15:14 Last Admin: 08/20/18 04:05 Dose: 1,000 ml Documented by: Famotidine (Pepcid) 20 mg JT BID [facility] Stop: 09/13/18 12:25 Last Admin: 08/20/18 10:17 Dose: 20 mg Documented by: Glycopyrrolate (Robinul) 0.5 mg PO Q6H [facility] Stop: 09/14/18 13:59 Last Admin: 08/20/18 10:17 Dose: 0.5 mg Documented by: Heparin Sodium (Porcine) (Heparin Sodium (Porcine)) 5,000 units SQ Q8 [facility] Stop: 09/11/18 13:59 Last Admin: 08/20/18 05:04 Dose: 5,000 units Documented by: Sodium Chloride (Nss 1000ml) 1,000 mls @ 50 mls/hr IV .Q20H [facility] Stop: 09/11/18 03:19 Last Admin: 08/20/18 05:06 Dose: 50 mls/hr Documented by: Alteplase, Recombinant 10 mg/ (Syringe) 60 mls @ 0.0006 mls/min IPL Q12H [facility]; Protocol Stop: 08/23/18 09:59 Last Admin: 08/20/18 10:18 Dose: 0.0006 mls/min Documented by: Dornase Saul 5 ml/ Syringe 30 mls @ 0.0006 mls/min IPL Q12H [facility]; Protocol Stop: 08/23/18 09:59 Last Admin: 08/20/18 10:15 Dose: 0.0006 mls/min Documented by: Lactulose (Chronulac) 30 gm GT Q6H PRN PRN Reason: until BM daily occured Stop: 09/13/18 13:59 Metoclopramide HCl (Reglan) 5 mg PEG Q6 [facility] Stop: 09/16/18 11:59 Last Admin: 08/20/18 05:04 Dose: 5 mg Documented by: Metoprolol Tartrate (Lopressor) 50 mg PO BID [facility]; Protocol Stop: 09/11/18 08:59 Last Admin: 08/20/18 10:18 Dose: 50 mg Documented by: Montelukast Sodium (Singulair) 10 mg GT QAM [facility] Stop: 09/11/18 08:59 Last Admin: 08/20/18 10:16 Dose: 10 mg Documented by: Oxycodone/Acetaminophen (Percocet 5mg/325mg) 1 tab PO Q4H PRN PRN Reason: Pain Stop: 09/01/18 20:42 Last Admin: 08/20/18 10:14 Dose: 1 tab Documented by: Polyethylene Glycol (Miralax Powder Packet) 17 gm GT DAILY [facility] Stop: 09/11/18 08:59 Last Admin: 08/20/18 10:20 Dose: 17 gm Documented by: Prednisone (Prednisone) 30 mg GT DAILY [facility] Stop: 09/19/18 08:59 Last Admin: 08/20/18 10:16 Dose: 30 mg Documented by: Fluticasone/Salmeterol (Advair Diskus 500/50) 1 puffs INH BID [facility] Stop: 09/11/18 08:59 Last Admin: 08/20/18 10:15 Dose: 1 puffs Documented by: Zinc Sulfate (Zinc Sulfate) 220 mg GT DAILY [facility] Stop: 09/11/18 08:59 Last Admin: 08/20/18 10:18 Dose: 220 mg Documented by: (1) Pneumonia involving left lung Lung location: lower lobe of lung Pneumonia type: due to unspecified organism Qualified Code(s): J18.1 - Lobar pneumonia, unspecified organism
[2018-08-20] MEDS: DIGOXIN 0.125 MG/2.5 ML UDP PEG SCH (17:20)
[2018-08-21] MEDS: SODIUM CHLORIDE 0.9% 1000ML 1,000 ML IV SCH (01:15)
[2018-08-21] MEDS: GLYCOPYRROLATE 1 MG TAB PO SCH ×4 (01:17→20:30)
[2018-08-21] MEDS: ALBUT/IPRATROP 3MG/0.5MG NEB 3 ML VIAL INH SCH ×6 (03:11→23:17)
[2018-08-21] MEDS: METOCLOPRAMIDE HCL 5 MG/5 ML UDP PEG SCH ×3 (05:01→17:51)
[2018-08-21] MEDS: OXYCODONE/ACETAMINOPHEN 5mg/325mg TAB PO PRN (05:01)
[2018-08-21] MEDS: HEPARIN SOD 5,000 UNIT/0.5 ML VIAL SQ SCH ×3 (05:13→22:48)
[2018-08-21] MEDS: ACETYLCYSTEINE 20% INHAL SOLN ***DISPENSED BY RESP. INH SCH ×2 (06:16→19:19)
[2018-08-21 06:48] LABS: Hematocrit (blood only) 29.5 % (42-52); Hemoglobin 9.7 g/dL (14.0-18.0); Mean Corpuscular Hgb Conc 32.9 g/dL (32-36); Mean Corpuscular Volume 90.2 fL (80-100); Mean Platelet Volume 8.8 fL (7.4-10.4); Platelet Count 347 K/uL (130-400); RDW Standard Deviation 54.3 fL (36.4-46.3); Red Blood Count 3.27 M/uL (4.7-6.1); White Blood Count 18.97 K/uL (4.8-10.8)
[2018-08-21 06:57] LABS: BUN Creatinine Ratio 69.8 (10-20); Blood Urea Nitrogen 21 mg/dl (7-18); Calcium 8.3 mg/dl (8.5-10.1); Carbon Dioxide 33 mmol/L (21-32); Chloride 96 mmol/L (98-107); Creatinine Clr Calc Pharmacy 189.3 ml/min; Est GFR (African American) > 150.0; Est GFR (Non-African American) 141.3; Glucose 93 mg/dl (70-99); Magnesium 1.9 mg/dl (1.8-2.4); Phosphorus 2.4 mg/dl (2.5-4.9); Potassium 3.9 mmol/L (3.5-5.1); Sodium 132 mmol/L (136-145)
[2018-08-21 07:20] LABS: ALC (manual) 1.14 K/uL (1.2-3.4); Lymphocytes # (manual) 1.14 K/uL (1.2-3.4); Metamyelocytes # (manual) 0.49 K/uL (0-0); Metamyelocytes % (manual) 2.6 %; Monocytes # (manual) 1.14 K/uL (0.11-0.59); Myelocytes # (manual) 0.97 K/uL (0-0); Myelocytes % (manual) 5.1 %; Neutrophils % (manual) 80.3 %; RBC Morphology Unremarkable
--- NOTE | 2018-08-21 07:26 | XRay Report ---
XR chest 1V not portable CLINICAL HISTORY: empyema COMPARISON STUDY: 08/20/2018 FINDINGS: The cardiac and mediastinal contours remain stable. The left-sided pigtail pleural catheter remains unchanged in position. There is a tracheostomy tube. There is severe pulmonary emphysema. Th ere is a small left pleural effusion. No pneumothorax is visualized.[ There are persistent minor basi lar airspace opacities left greater than right. IMPRESSION: Stable findings Electronically signed by: Jose Fields M.D. 08/21/2018 7:25 AM
[2018-08-21] MEDS: predniSONE 10 MG TABLET GT SCH (08:30)
[2018-08-21] MEDS: ZINC SULFATE 220 MG CAPSULE GT SCH (08:30)
[2018-08-21] MEDS: MONTELUKAST SODIUM 10 MG TABLET GT SCH (08:31)
[2018-08-21] MEDS: levoFLOXacin 750 MG TAB PO SCH (08:31)
[2018-08-21] MEDS: METOPROLOL TARTRATE 50 MG TAB PO SCH ×2 (08:32→20:31)
[2018-08-21] MEDS: FAMOTIDINE 20 MG TAB JT SCH ×2 (08:32→20:31)
[2018-08-21] MEDS: POLYETHYLENE (MIRALAX) 17 GM PACK GT SCH (08:39)
[2018-08-21] MEDS: ASPIRIN 81 MG CHEW GT SCH (08:39)
[2018-08-21] MEDS ORDERED: SODIUM PHOSPHATE 3 MMOL/1 ML 5 ML VIAL IV ONE (08:50)
[2018-08-21] MEDS ORDERED: SODIUM PHOSPHATE 30 MMOL in SODIUM CHLORIDE 0.9% 500 ML IV ONE (09:00)
[2018-08-21] MEDS: FLUTICASONE/SALMETEROL (ADVAIR) 500/50 INH 14 PUFF INH SCH ×2 (10:41→20:30)
[2018-08-21] MEDS: ALTEPLASE, RECOMBINANT 10 MG in SYRINGE 50 ML IPL SCH ×2 (10:41→22:47)
[2018-08-21] MEDS: IMPACT LIQD 1.0 CAL 1,000 ML BAG PEG SCH (10:45)
[2018-08-21] MEDS: DORNASE ALFA 5 ML in SYRINGE 25 ML IPL SCH ×2 (11:57→22:48)
--- NOTE | 2018-08-21 14:25 | Progress Note ---
DATE: 08/21/2018 PULMONARY PROGRESS NOTE TIME: 12:20 p.m. SUBJECTIVE: The patient indicates he is feeling good. Speech is still inhibited by his tracheostomy. Nursing is reporting not all that much sputum. The patient did have a bronchoscopy done yesterday by Dr. Nino for clearance of secretions. He did have some issues with post-procedure hypotension that was transient. He is getting the MIST-2 protocol through his chest tube and continues to drain. OBJECTIVE: GENERAL: The patient appeared comfortable. VITAL SIGNS: Temperature is 37.1. He has had no fevers. HEART: Heart rate 67. Rhythm regular. Blood pressure 99/60. LUNGS: Lung huertas reveal scattered rhonchi, left greater than right. The rhonchi were more posterior than anterior. Respiratory rate 18, saturation 96% on a 6-liter trach collar. EXTREMITIES: Showed no cyanosis, clubbing or edema. Culture from the chest tube is showing anaerobic gram-negative bacilli. There is also some gram-positive cocci growth. White count today 18.97. Hemoglobin 9.7. Platelets 347,000. Electrolytes today show sodium 132, potassium 3.9, chloride 96, bicarbonate 33. BUN 21 with creatinine of 0.3. Chest x-ray today is stable. The pigtail catheter is still in place. There is a trach tube. He has severe emphysema. There is a suggestion of a small left pleural effusion. Overall, the very hazy loculated density seen prior to drainage has significantly improved. IMPRESSION: 1. Respiratory failure -- acute on chronic with hypoxia. 2. Left lower lobe pneumonia culturing serratia. 3. Empyema with anaerobic gram-negative bacteria. 4. Chronic obstructive pulmonary disease. 5. Chronic aspiration. COMMENTS: The patient overall seems to be doing well. His antibiotic coverage at present is only levofloxacin. This would typically not the coverage for a gram-negative anaerobic infection. I would suggest addition of meropenem or ampicillin sulbactam. We will defer this to the hospitalist. We will follow the patient peripherally and see again only if requested.
[2018-08-21] MEDS: DIGOXIN 0.125 MG/2.5 ML UDP PEG SCH (15:45)
--- NOTE | 2018-08-21 16:58 | Progress Note ---
DATE: 08/21/2018 Mr. Shirley was seen today. He looks better to me than he did yesterday. His white count is stable at 18,970 with hemoglobin of 9.7. I looked at his x-ray today and I think it is better. I think his left base looks better. We are continuing the MIST-2 protocol. His chest tube has drained 260 mL and it appears to be semi-purulent with some fibrin. He sounds better and he states he feels better. ASSESSMENT AND PLAN: Left empyema with multiple organisms. It appears there may be an anaerobe although difficult to say at this point. We will continue the MIST-2 protocol for 3 days total and then repeat a CT scan. He sounds better after being bronchoscoped yesterday.
--- NOTE | 2018-08-21 17:19 | Hospitalist Progress Note ---
Date of Service August 21, 2018 Assessment & Plan (1) Atrial fibrillation with rapid ventricular response: Seems to be new onset atrial fibrillation with rapid ventricular response May be contributed by infection Appreciate cardiology input and recommendation Has been on amiodarone drip and the heart rate seems to be controlled Reverted to sinus rhythm Continue beta-kyaw to maintain direct and try to avoid amiodarone as per staff electronic warfare officer No long-term anticoagulation Heart rate remains controlled Denies any cardiac symptoms (2) Pneumonia involving left lung: Admitted with sepsis likely secondary to pneumonia Pneumonia involves the left middle and lower lobe May be secondary to aspiration ago he has a PEG tube placed for feeding Cultures have been sent Has been on intravenous vancomycin and Zosyn Appreciate production engine repairer input and recommendation Seems to have aspiration or any tracheoesophageal fistula to be present Will have bronchoscopy today and may need to have tracheostomy tube changedno evidence of tracheal esophageal fistula Has had evaluation by pad machine feeder on CT of the chest without contrast did not show possible empyema involving the lung fissure on the left side Thoracic surgery has been consulted for possible aspiration and/or thoracic tube placement Status post left thoracotomy tube placement We will continue current antibiotic White cell count has been improving We will continue Levaquin for 14 days in total as per pad machine feeder Clinically a lot better today (3) Biventricular heart failure: Has history of biventricular heart failure with an EF of around 20% Hold diuretics now No overt CHF at this time Restrict fluid to 1500 mL's a day No evidence of heart failure (4) Sepsis: As above (5) Hyponatremia: Will monitor sodium level Sodium level is 134 today on 08/14 Sodium is 132 today 08/16 Sodium at 131 on 08/19 (6) COPD exacerbation: Has history of COPD Exacerbation due to pneumonia continue Solu-Medrol intravenously and antibiotics Remains stable He has a tendency to accumulate secretions from the bronchial tubes and does not have the capacity to cough it out He may need periaortic bronchoscopy as per production engine repairer to suction out excessive suppression As of today he does not have any significant crackles on examination Discussed with the patient about resuscitation status He wanted to be DNR We will discuss with him again (7) Empyema of left pleural space: CT of the chest did show empyema involving the left pleural space and left major fissure Appreciate thoracic surgery input and thoracentesis with them thoracostomy tube placement Repeat chest x-ray showed improvement We will continue current antibiotic for 14 days in total Wound culture grew Streptococcus intermedius and bacteroids pyelosinus-does not require any additional antibiotic for now We will continue Levaquin for a total of 14 days (8) Mucus plugging of bronchi: Status post bronchoscopy and suction today He does not have significant cough reflex and cannot bring out excessive secretions We will need periodic bronchoscopy as per production engine repairer Monitor for shortness of breath and desaturation Following bronchoscopy he has been much better Subjective The patient was seen and examined in the ICU He is a 62-year-old male who was recently in the hospital for acute respiratory failure from chronic obstructive pulmonary disease, pneumonia, congestive heart failure. Presents with respiratory distress, pneumonia and sepsis and rapid atrial fibrillation. Complains to have shortness of breath and generally unwell Feels a little better since admission 08/13 The patient was seen and examined in ICU Noted to have ongoing respiratory distress with audible crackles Reverted to sinus rhythm with controlled heart rate Denies any other symptoms 08/14 The patient was seen and examined in ICU He is a status post bronchoscopy without any evidence of tracheoesophageal fistula He has been feeling a lot better and denies any significant symptoms 08/15 The patient was seen and examined in telemetry unit He has been feeling a lot better denies any symptoms Generally weak He has been moved out of ICU to telemetry unit 08/16 He remains in stable Denies any cough and no shortness of breath No fever, chills and or riders 08/17 Patient was seen and examined in telemetry unit He remains stable for the last few days Denies any symptoms as of today 08/18 The patient remains a stable without any cough and/or shortness of breath He has noted to have possible empyema involving the left lung fissure and pleural space Dr. Whitmore has been consulted for possible aspiration and/or pleural catheter placement He will be transferred back to [facility] this afternoon 08/19 He is status post the left thoracotomy tube insertion Remains stable and denies any increasing shortness of breath or cough Denies any fever and/or chills, any nausea and/or vomiting 08/20 The patient was seen and examined in telemetry unit He has been feeling a lot better Complains to have some pain at the left thoracotomy tube site Discussed the CODE STATUS with the patient in detail again The patient remains DNR 08/21 The patient was seen and examined in telemetry unit He has been feeling a lot better following chest tube insertion Denies any more increasing cough and no shortness of breath No fever and/or chills Physical Exam Vital Signs (Past 24 Hours): Last Vital Signs Temp 36.6 C 08/21/18 15:26 Pulse 69 08/21/18 16:12 Resp 18 08/21/18 16:12 BP 94/56 L 08/21/18 15:26 Pulse Ox 96 08/21/18 16:12 Physical Exam: No apparent distress at rest Constitutional: + ill appearing and + thin; no acute distress Eyes: PERRL, conjunctivae normal, anicteric sclerae ENMT: external ear and nose normal, oropharynx normal Mallampati Class: I Respiratory: normal respiratory effort Auscultation: + diminished lung sounds, + crackles and + wheezes Cardiovascular: Rate/Rhythm: + tachycardic Heart Sounds: normal S1 and normal S2 Gastrointestinal (Abdomen): Inspection/Auscultation: abdomen normal to inspection Percussion/Palpation: abdomen soft Neurologic: awake Results & Data Laboratory Results Short CBC 08/21/18 Range/Units 06:20 WBC 18.97 H (4.8-10.8) K/uL Hgb 9.7 L (14.0-18.0) g/dL Hct 29.5 L (42-52) % Plt Count 347 (130-400) K/uL BMP 08/21/18 06:20 Sodium 132 L Potassium 3.9 Chloride 96 L Carbon Dioxide 33 H BUN 21 H Creatinine 0.30 L Glucose 93 Calcium 8.3 L Medications Administered Current Inpatient Medications Acetylcysteine (Mucomyst 20%) 3 ml INH BIDR [facility]ENNA Stop: 08/25/18 07:59 Last Admin: 08/21/18 06:16 Dose: 3 ml Documented by: Albuterol (Duoneb) 3 ml INH Q4R [facility]ENNA Stop: 09/11/18 03:59 Last Admin: 08/21/18 16:12 Dose: 3 ml Documented by: Aspirin (Aspirin Chew) 81 mg GT DAILY [facility] Stop: 09/11/18 08:59 Last Admin: 08/21/18 08:39 Dose: 81 mg Documented by: Digoxin (Lanoxin) 0.125 mg PEG DAILY@1600 [facility] Stop: 09/17/18 15:59 Last Admin: 08/21/18 15:45 Dose: 0.125 mg Documented by: Enteral Nutritional Formula (Impact 1.0 Galo) 1,000 ml PEG UD SIENNA; Protocol Stop: 09/11/18 15:14 Last Admin: 08/21/18 10:45 Dose: 1,000 ml Documented by: Famotidine (Pepcid) 20 mg JT BID [facility] Stop: 09/13/18 12:25 Last Admin: 08/21/18 08:32 Dose: 20 mg Documented by: Glycopyrrolate (Robinul) 0.5 mg PO Q6H [facility] Stop: 09/14/18 13:59 Last Admin: 08/21/18 15:44 Dose: 0.5 mg Documented by: Heparin Sodium (Porcine) (Heparin Sodium (Porcine)) 5,000 units SQ Q8 [facility] Stop: 09/11/18 13:59 Last Admin: 08/21/18 15:42 Dose: 5,000 units Documented by: Sodium Chloride (Nss 1000ml) 1,000 mls @ 50 mls/hr IV .Q20H [facility]EN[facility] Stop: 09/11/18 03:19 Last Admin: 08/21/18 01:15 Dose: 50 mls/hr Documented by: Alteplase, Recombinant 10 mg/ (Syringe) 60 mls @ 0.0006 mls/min IPL Q12H [facility]ENNA; Protocol Stop: 08/23/18 09:59 Last Admin: 08/21/18 10:41 Dose: 0.0006 mls/min Documented by: Dornase Saul 5 ml/ Syringe 30 mls @ 0.0006 mls/min IPL Q12H [facility]; Protocol Stop: 08/23/18 09:59 Last Admin: 08/21/18 11:57 Dose: 0.0006 mls/min Documented by: Lactulose (Chronulac) 30 gm GT Q6H PRN PRN Reason: until BM daily occured Stop: 09/13/18 13:59 Levofloxacin (Levaquin) 750 mg PO DAILY [facility] Stop: 08/31/18 09:01 Last Admin: 08/21/18 08:31 Dose: 750 mg Documented by: Metoclopramide HCl (Reglan) 5 mg PEG Q6 [facility] Stop: 09/16/18 11:59 Last Admin: 08/21/18 11:57 Dose: 5 mg Documented by: Metoprolol Tartrate (Lopressor) 50 mg PO BID [facility]; Protocol Stop: 09/11/18 08:59 Last Admin: 08/21/18 08:32 Dose: 50 mg Documented by: Montelukast Sodium (Singulair) 10 mg GT QAM [facility] Stop: 09/11/18 08:59 Last Admin: 08/21/18 08:31 Dose: 10 mg Documented by: Oxycodone/Acetaminophen (Percocet 5mg/325mg) 1 tab PO Q4H PRN PRN Reason: Pain Stop: 09/01/18 20:42 Last Admin: 08/21/18 05:01 Dose: 1 tab Documented by: Polyethylene Glycol (Miralax Powder Packet) 17 gm GT DAILY [facility] Stop: 09/11/18 08:59 Last Admin: 08/21/18 08:39 Dose: 17 gm Documented by: Prednisone (Prednisone) 30 mg GT DAILY [facility] Stop: 09/19/18 08:59 Last Admin: 08/21/18 08:30 Dose: 30 mg Documented by: Fluticasone/Salmeterol (Advair Diskus 500/50) 1 puffs INH BID [facility] Stop: 09/11/18 08:59 Last Admin: 08/21/18 10:41 Dose: 1 puffs Documented by: Zinc Sulfate (Zinc Sulfate) 220 mg GT DAILY [facility] Stop: 09/11/18 08:59 Last Admin: 08/21/18 08:30 Dose: 220 mg Documented by: (1) Pneumonia involving left lung Lung location: lower lobe of lung Pneumonia type: due to unspecified organism Qualified Code(s): J18.1 - Lobar pneumonia, unspecified organism
[2018-08-22] MEDS: METOCLOPRAMIDE HCL 5 MG/5 ML UDP PEG SCH ×4 (00:33→17:19)
[2018-08-22] MEDS: SODIUM CHLORIDE 0.9% 1000ML 1,000 ML IV SCH ×2 (02:27→21:43)
[2018-08-22] MEDS: GLYCOPYRROLATE 1 MG TAB PO SCH ×4 (02:27→21:39)
[2018-08-22] MEDS: ALBUT/IPRATROP 3MG/0.5MG NEB 3 ML VIAL INH SCH ×6 (03:27→23:18)
[2018-08-22] MEDS: HEPARIN SOD 5,000 UNIT/0.5 ML VIAL SQ SCH ×3 (06:26→23:09)
--- NOTE | 2018-08-22 07:12 | XRay Report ---
XR chest 1V portable CLINICAL HISTORY: empyema COMPARISON STUDY: Chest radiograph August 21, 2018. FINDINGS: Tracheostomy tube is in place. A left chest pigtail catheter is unchanged in position. Irlanda re emphysema is noted. There is no pneumothorax. Hazy left mid and lower lung airspace opacity is not ed. This is unchanged. Cardiomediastinal silhouette is normal. There is no evidence for pulmonary dewayne ma. Small left pleural effusion is noted. IMPRESSION: No change in appearance of the chest. Left chest pigtail catheter place with a small lef t pleural effusion and hazy left lung airspace opacity. Electronically signed by: Patel Yee M.D. 08/22/2018 7:10 AM
[2018-08-22] MEDS: ACETYLCYSTEINE 20% INHAL SOLN ***DISPENSED BY RESP. INH SCH ×2 (07:23→23:20)
[2018-08-22] MEDS: FLUTICASONE/SALMETEROL (ADVAIR) 500/50 INH 14 PUFF INH SCH ×2 (08:43→21:38)
[2018-08-22] MEDS: levoFLOXacin 750 MG TAB PO SCH (08:44)
[2018-08-22] MEDS: ASPIRIN 81 MG CHEW GT SCH (08:44)
[2018-08-22] MEDS: OXYCODONE/ACETAMINOPHEN 5mg/325mg TAB PO PRN (08:44)
[2018-08-22] MEDS: POLYETHYLENE (MIRALAX) 17 GM PACK GT SCH (08:45)
[2018-08-22] MEDS: METOPROLOL TARTRATE 50 MG TAB PO SCH ×2 (08:45→21:38)
[2018-08-22] MEDS: predniSONE 10 MG TABLET GT SCH (08:46)
[2018-08-22] MEDS: FAMOTIDINE 20 MG TAB JT SCH ×2 (08:46→21:38)
[2018-08-22] MEDS: MONTELUKAST SODIUM 10 MG TABLET GT SCH (08:46)
[2018-08-22] MEDS: ZINC SULFATE 220 MG CAPSULE GT SCH (08:47)
[2018-08-22] MEDS: ALTEPLASE, RECOMBINANT 10 MG in SYRINGE 50 ML IPL SCH ×2 (10:26→22:56)
[2018-08-22] MEDS: DORNASE ALFA 5 ML in SYRINGE 25 ML IPL SCH (11:35)
--- NOTE | 2018-08-22 12:42 | Progress Note ---
DATE: 08/22/2018 Seen today. I think he looks better. I went over his films with Dr. Randy Yee today. I think his x-ray actually looks a little better at the base. He still has of course some abnormalities. He has been afebrile. He is on a trach collar, 97% saturations, but fairly stable vital signs. He has put out about 200 mL through his chest tube. He is making good urine. His peripheral edema is a bit better. His white count remains elevated at 18,970, the hemoglobin is 9.7, which has been stable. His BUN and creatinine are stable at 21 and 0.3. The Strep intermedius is one of the organisms which has grown out of his empyema fluid as well as Bacteroides pyogenes. He remains on Levaquin. I am going to ask infectious disease to see him if he needs better anaerobic coverage. He has no known drug allergies. We are going to complete 3 days of the MIST-2 protocol and then repeat a CT scan without contrast.
[2018-08-22] MEDS: DIGOXIN 0.125 MG/2.5 ML UDP PEG SCH (15:36)
--- NOTE | 2018-08-22 17:16 | Hospitalist Progress Note ---
Date of Service August 22, 2018 Assessment & Plan (1) Atrial fibrillation with rapid ventricular response: new onset atrial fibrillation with rapid ventricular response May be contributed by infection Reverted to sinus rhythm after being given Amiodarone Continue beta-kyaw to maintain direct and try to avoid amiodarone as per track rider No long-term anticoagulation -- remains in SR (2) Pneumonia involving left lung: Admitted with sepsis likely secondary to pneumonia Pneumonia involves the left middle and lower lobe s/p bronchoscopy no evidence of tracheal esophageal fistula Thoracic surgery has been consulted for possible aspiration and/or thoracic tube placement Status post left thoracotomy tube placement cultures: (+) Serratia, Strep, Bacteroides on Levaquin ID consulted (3) Biventricular heart failure: Has history of biventricular heart failure with an EF of around 20% No overt CHF at this time Restrict fluid to 1500 mL's a day Diuretics on hold (4) Sepsis: As above (5) Hyponatremia: Na 132 stable now (6) COPD exacerbation: continue Prednisone , Nebs (7) Empyema of left pleural space: management per #1 (8) Mucus plugging of bronchi: Status post bronchoscopy and suction He does not have significant cough reflex and cannot bring out excessive secretions We will need periodic bronchoscopy as per pest controller DVT Prophylaxis Heparin SC q8h Subjective ff up for empyema seen resting in bed, comfortable states he continues to feel improved still has cough, mild discomfort over left chest denies other symptoms Physical Exam Vital Signs (Past 24 Hours): Last Vital Signs Temp 36.9 C 08/22/18 15:28 Pulse 81 08/22/18 15:37 Resp 18 08/22/18 15:37 BP 100/58 L 08/22/18 15:28 Pulse Ox 97 08/22/18 15:37 Physical Exam: General- oriented x 3, not in distress, no accessory muscle use Eyes- anicteric Neck- no JVD Lungs-(+) rhonchi left > right Heart- normal rate, regular rhythm; no murmurs Abdomen- normal bowel sounds, nondistended, soft, nontender PEG tube in place, no signs of infection Extremities- no pretibial edema, no calf tenderness Neuro- alert, oriented x 3; no gross focal neurologic deficits Skin- warm & dry (1) Pneumonia involving left lung Lung location: lower lobe of lung Pneumonia type: due to unspecified organism Qualified Code(s): J18.1 - Lobar pneumonia, unspecified organism
[2018-08-23] MEDS: METOCLOPRAMIDE HCL 5 MG/5 ML UDP PEG SCH ×4 (00:20→17:11)
[2018-08-23] MEDS: DORNASE ALFA 5 ML in SYRINGE 25 ML IPL SCH (00:20)
[2018-08-23] MEDS: GLYCOPYRROLATE 1 MG TAB PO SCH ×4 (02:14→21:15)
[2018-08-23] MEDS: ALBUT/IPRATROP 3MG/0.5MG NEB 3 ML VIAL INH SCH ×6 (03:21→23:29)
[2018-08-23] MEDS: HEPARIN SOD 5,000 UNIT/0.5 ML VIAL SQ SCH ×3 (05:57→21:15)
[2018-08-23 07:05] LABS: Hematocrit (blood only) 27.2 % (42-52); Hemoglobin 9.2 g/dL (14.0-18.0); Mean Corpuscular Hgb Conc 33.8 g/dL (32-36); Mean Corpuscular Volume 88.9 fL (80-100); Mean Platelet Volume 8.5 fL (7.4-10.4); Platelet Count 294 K/uL (130-400); RDW Coefficient of Variation 17.6 % (11.5-14.5); RDW Standard Deviation 55.4 fL (36.4-46.3); Red Blood Count 3.06 M/uL (4.7-6.1)
[2018-08-23 07:10] LABS: BUN Creatinine Ratio 80.4 (10-20); Blood Urea Nitrogen 16 mg/dl (7-18); Calcium 8.1 mg/dl (8.5-10.1); Carbon Dioxide 30 mmol/L (21-32); Chloride 96 mmol/L (98-107); Creatinine Clr Calc Pharmacy 283.9 ml/min; Est GFR (African American) > 150.0; Est GFR (Non-African American) > 150.0; Glucose 99 mg/dl (70-99); Sodium 129 mmol/L (136-145)
[2018-08-23 07:12] LABS: Basophils # (auto) 0.03 K/uL (0-0.2); Basophils % (auto) 0.2 %; Echinocytes 1+; Immature Granulocytes # (auto) 1.18 K/uL (0.00-0.02); Immature Granulocytes % (auto) 7.5 %; Monocytes # (auto) 1.61 K/uL (0.11-0.59); Monocytes % (auto) 10.2 %; Neutrophils # (auto) 11.88 K/uL (1.4-6.5); Neutrophils % (auto) 75.1 %
[2018-08-23] MEDS: ACETYLCYSTEINE 20% INHAL SOLN ***DISPENSED BY RESP. INH SCH ×2 (07:20→18:59)
--- NOTE | 2018-08-23 07:23 | XRay Report ---
XR chest 1V portable HISTORY: 63 years-old Male empyema follow-up study in a patient with empyema and shortness of breath COMPARISON: Chest radiograph 08/22/2018 TECHNIQUE: Portable AP view of the chest FINDINGS: Stable positioning of the left-sided pleural drainage catheter. Tracheostomy cannula overlies the mid line. Cardiomediastinal and hilar silhouettes are unchanged. Small left pleural effusion with hazy le ft midlung and left lung base opacities redemonstrated. No pneumothorax. Advanced emphysema with lunchroom supervisor valentín interstitial coarsening. Bones appear grossly intact. IMPRESSION: 1. Stable positioning of the left-sided pleural drainage catheter. 2. Small left pleural effusion with unchanged left midlung and left lung base hazy opacities. 3. Advanced emphysema with chronic interstitial coarsening. 4. No pneumothorax. The above report was generated using voice recognition software. It may contain grammatical, syntax o r spelling errors. Electronically signed by: Jason Marcus M.D. 08/23/2018 7:22 AM
--- NOTE | 2018-08-23 07:55 | Infectious Disease Consult ---
Date of Consultation August 23, 2018 Assessment & Plan (1) Empyema of left pleural space: will change to Ertapenem 1 g daily for increased coverage, this will treat serratia as well. would give 10 day course. History of Present Illness Attending Physician: Tomas Rivera MD pt admitted with increased sob, was recently hospitalized for 1 month, had trach and peg. was d/c but returned with increased sob, found to have afib with RVR, had increased sputum and secretions, imaging of chest revelaed left empyema. he has had multiple brochs this admission and now has chest tube as well, serosang. fluid draiange. pt receiving neb treatment on my exam today, states breathing is much better, denies pain at chest tube site, denies f/c. receiving peg feedings, no vomiting. Currently on po levaquin since 08/21. 08/[address] showed severe empysema. 08/20 bronch cultures are negative to date, 08/18 - s. intermedius and bacteroides, no sensitivities. 08/12 bronch - serratia, resistant to cipro only. tolerating abx well. ID consulted for anaerobic coverage. wbc intially 36, improved to 18, creat normal. blood cultures negative and final. Allergies Allergy/AdvReac Type Severity Reaction Status Date / Time No Known Allergies Allergy Unverified 07/14/18 08:44 Home Medications Home Medications Medication Instructions Recorded Confirmed Type fluticasone propion-salmeterol 1 inh INHALATION BID 03/19/18 08/11/18 History [Advair Diskus] montelukast [Singulair] 10 mg FEEDING TUBE QAM 03/19/18 08/11/18 History spironolactone [Aldactone] 25 mg FEEDING TUBE QAM 03/19/18 08/11/18 History Spiriva with HandiHaler 1 cap INHALATION DAILY 07/14/18 08/11/18 History guaifenesin 400 mg PO TID 07/14/18 08/11/18 History levalbuterol tartrate [Xopenex HFA] 2 inh INHALATION TID PRN 07/14/18 08/11/18 History aspirin 81 mg FEEDING TUBE DAILY #90 tab 08/06/18 08/11/18 Rx famotidine 20 mg FEEDING TUBE BID 08/11/18 08/11/18 History furosemide 4 ml FEEDING TUBE DAILY 08/11/18 08/11/18 History ipratropium-albuterol 3 ml INHALATION Q4 08/11/18 08/11/18 History levofloxacin 500 mg FEEDING TUBE DAILY 08/11/18 08/11/18 History metoprolol tartrate 50 mg PO BID 08/11/18 08/11/18 History zinc sulfate 220 mg FEEDING TUBE DAILY 08/11/18 08/11/18 History Patient History Medical History Tobacco use (Chronic) GERD (gastroesophageal reflux disease) (Chronic) Cirrhosis (Chronic) Hepatitis B (Chronic) COPD (chronic obstructive pulmonary disease) (Acute) HTN (hypertension) (Chronic) Pneumonia (Resolved) Tachycardia (Resolved) COPD exacerbation (Resolved) Acute respiratory failure with hypoxia (Acute) COPD (chronic obstructive pulmonary disease) Cirrhosis of liver GERD (gastroesophageal reflux disease) History of hepatitis B Hypertension Tobacco abuse Surgical History Tracheostomy present Family History Other Diabetes Heart disease Kidney disease Social History Preferred Language: Hebrew Communication Ability: Impaired Permanent Mold Supervisor Required: No Beliefs That Will Affect Care: Pentecostal Current Living Situation: Other Current Living Situation Comment: ALF Other Information That Helps Us Care for You: No Feels Safe at Home: Yes Smoking Status: Former smoker Hx Alcohol Use: No Hx Substance Use: No Review of Systems all remaining ros reviewed and are negative Physical Exam Vital Signs (Past 24 Hours): Last Vital Signs Temp 36.8 C 08/23/18 03:52 Pulse 81 08/23/18 07:21 Resp 16 08/23/18 07:21 BP 93/60 L 08/23/18 03:52 Pulse Ox 97 08/23/18 07:21 Constitutional: WD/WN, vitals as above Eyes: PERRL, conjunctivae normal, anicteric sclerae ENMT: external ear and nose normal, oropharynx normal Neck: normal visual inspection + trach Respiratory: normal respiratory effort; no labored breathing Auscultation: lungs clear to auscultation bilaterally and + diminished lung sounds; no crackles, no rhonchi and no wheezes trach with no secretions on my exam, decreased breath sound throughout but no wheeze, receiving neb treatmenet, chest tube in place, blood tinged fluid noted. Cardiovascular: RRR, no murmur, no edema Gastrointestinal (Abdomen): normal bowel sounds, soft, nontender, no hepatosplenomegaly Inspection/Auscultation: abdomen not distended and no abdominal edema Percussion/Palpation: abdomen nontender Musculoskeletal: no cyanosis or clubbing, extremities motor strength 5/5 Skin: no rashes, warm and dry Psychiatric: A+Ox3, euthymic affect Results & Data Laboratory Results Microbiology 08/20/18 11:19 Bronch Wash,Left Lower Lobe Gram Stain - Final 08/20/18 11:19 Bronch Wash,Left Lower Lobe Bronchoalveolar Lavage Culture - Final Corynebacterium species 08/18/18 11:21 Lung Gram Stain - Final 08/18/18 11:21 Lung Deep Wound Culture - Final Streptococcus intermedius Bacteroides pyogenes 08/20/18 11:19 Bronch Wash,Left Lower Lobe Fungal Smear - Final 08/20/18 11:19 Bronch Wash,Left Lower Lobe Fungal Culture - Preliminary No yeast or fungus isolated - Report 1, Additional Report to Follow. 08/20/18 11:19 Bronch Wash,Left Lower Lobe Acid Fast Bacilli Smear - Final 08/18/18 11:21 Lung,Left Acid Fast Bacilli Smear - Final 08/11/18 23:33 Blood Blood Culture - Final No growth 08/11/18 23:25 Blood Blood Culture - Final No growth 08/12/18 Unknown Bronch Wash,Left Lower Lobe Gram Stain - Final 08/12/18 Unknown Bronch Wash,Left Lower Lobe Bronchoalveolar Lavage Culture - Final Corynebacterium species Serratia marcescens
[2018-08-23] MEDS: FLUTICASONE/SALMETEROL (ADVAIR) 500/50 INH 14 PUFF INH SCH ×2 (08:41→21:15)
[2018-08-23] MEDS: FAMOTIDINE 20 MG TAB JT SCH ×2 (08:43→21:15)
[2018-08-23] MEDS: METOPROLOL TARTRATE 50 MG TAB PO SCH ×2 (08:43→21:15)
[2018-08-23] MEDS: ZINC SULFATE 220 MG CAPSULE GT SCH (08:44)
[2018-08-23] MEDS: MONTELUKAST SODIUM 10 MG TABLET GT SCH (08:44)
[2018-08-23] MEDS: predniSONE 10 MG TABLET GT SCH (08:44)
[2018-08-23] MEDS: ASPIRIN 81 MG CHEW GT SCH (08:48)
[2018-08-23] MEDS: POLYETHYLENE (MIRALAX) 17 GM PACK GT SCH (08:48)
[2018-08-23] MEDS: OXYCODONE/ACETAMINOPHEN 5mg/325mg TAB PO PRN ×2 (08:48→14:37)
[2018-08-23] MEDS: ERTAPENEM SODIUM 1,000 MG in SODIUM CHLORIDE 0.9% 50 ML IV SCH (08:57)
--- NOTE | 2018-08-23 12:20 | Progress Note ---
DATE: 08/23/2018 The patient was seen today. Our MIST protocol is completed. I think his x-ray looks pretty good today. He has had no fevers. His white count has come down a bit to 15,080 with hemoglobin of 9.2. He looks better to me. His sodium is down to 129. BUN and creatinine are 16 and 0.2 respectively. He has decreased breath sounds throughout, but has no air leak in his catheter. I did flush his catheter and it is patent. We are going to check a CT scan tomorrow and if we are pleased with the results, we may remove this pigtail catheter. I have to say I think he looks much better than he did just a few days ago. I am hopeful it will continue to improve. He may also need to be diuresed. His platelet count dropping, hemoglobin dropping, white count coming down and his sodium down to 129, all argue towards a degree of fluid overload. MTDD
[2018-08-23] MEDS: DIGOXIN 0.125 MG/2.5 ML UDP PEG SCH (17:10)
--- NOTE | 2018-08-23 19:30 | Hospitalist Progress Note ---
Date of Service August 23, 2018 Assessment & Plan (1) Atrial fibrillation with rapid ventricular response: new onset atrial fibrillation with rapid ventricular response May be contributed by infection Reverted to sinus rhythm after being given Amiodarone Continue beta-kyaw to maintain direct and try to avoid amiodarone as per basting marker No long-term anticoagulation -- remains in SR (2) Pneumonia involving left lung: Admitted with sepsis likely secondary to pneumonia Pneumonia involves the left middle and lower lobe s/p bronchoscopy no evidence of tracheal esophageal fistula Thoracic surgery has been consulted for possible aspiration and/or thoracic tube placement Status post left thoracotomy tube placement cultures: (+) Serratia, Strep, Bacteroides on Levaquin, transitioned to ertapenem per ID recommendation Repeat CT scan planned for tomorrow, possible chest tube withdrawal (3) Biventricular heart failure: Has history of biventricular heart failure with an EF of around 20% No overt CHF at this time Restrict fluid to 1500 mL's a day Diuretics on hold (4) Sepsis: As above (5) Hyponatremia: Na 132 stable now (6) COPD exacerbation: continue Prednisone , Nebs (7) Empyema of left pleural space: management per #1 (8) Mucus plugging of bronchi: Status post bronchoscopy and suction He does not have significant cough reflex and cannot bring out excessive secretions will need periodic bronchoscopy 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 DVT Prophylaxis Heparin SC q8h Subjective ff up for empyema Sitting up in bed, not in distress, in good spirits States breathing is better today Less cough No abdominal pain No other symptoms Physical Exam Vital Signs (Past 24 Hours): Last Vital Signs Temp 36.7 C 08/23/18 15:39 Pulse 86 08/23/18 18:59 Resp 16 08/23/18 18:59 BP 93/55 L 08/23/18 15:39 Pulse Ox 96 08/23/18 18:59 Physical Exam: General- oriented x 2, not in distress, speaks in sentences with no effort or accessory muscle use Eyes- anicteric Neck- no JVD Lungs-positive mild rales at the bases, no wheezing Heart- normal rate, regular rhythm; no murmurs Abdomen- normal bowel sounds, nondistended, soft, nontender PEG tube: No signs of infection, discharge Extremities- no pretibial edema, no calf tenderness Neuro- alert, oriented x 2; no gross focal neurologic deficits Skin- warm & dry Results & Data Laboratory Results Laboratory Results - last 24 hr 08/23/18 08/23/18 06:16 06:16 WBC 15.80 H RBC 3.06 L Hgb 9.2 L Hct 27.2 L MCV 88.9 MCH 30.1 MCHC 33.8 RDW Std Deviation 55.4 H RDW Coeff of Leann 17.6 H Plt Count 294 MPV 8.5 Immature Gran % (Auto) 7.5 Neut % (Auto) 75.1 Lymph % (Auto) 7.0 [place] % (Auto) 10.2 Eos % (Auto) 0.0 Baso % (Auto) 0.2 Immature Gran # (Auto) 1.18 H Neut # (Auto) 11.88 H Lymph # (Auto) 1.10 L [place] # (Auto) 1.61 H Eos # (Auto) 0.00 Baso # (Auto) 0.03 Echinocytes 1+ Sodium 129 L Potassium 4.0 Chloride 96 L Carbon Dioxide 30 Anion Gap 3.0 BUN 16 Creatinine 0.20 L Est Cr Clr Drug Dosing 283.9 Est GFR ( Amer) > 150.0 Est GFR (Non-Af Amer) > 150.0 BUN/Creatinine Ratio 80.4 H Glucose 99 Calcium 8.1 L (1) Pneumonia involving left lung Lung location: lower lobe of lung Pneumonia type: due to unspecified organism Qualified Code(s): J18.1 - Lobar pneumonia, unspecified organism
[2018-08-23] MEDS: SODIUM CHLORIDE 0.9% 1000ML 1,000 ML IV SCH (21:14)
[2018-08-24] MEDS: GLYCOPYRROLATE 1 MG TAB PO SCH ×4 (00:59→19:28)
[2018-08-24] MEDS: METOCLOPRAMIDE HCL 5 MG/5 ML UDP PEG SCH ×4 (01:00→18:14)
[2018-08-24] MEDS: ALBUT/IPRATROP 3MG/0.5MG NEB 3 ML VIAL INH SCH ×6 (03:37→23:21)
[2018-08-24] MEDS: HEPARIN SOD 5,000 UNIT/0.5 ML VIAL SQ SCH ×3 (06:10→23:50)
[2018-08-24] MEDS: ACETYLCYSTEINE 20% INHAL SOLN ***DISPENSED BY RESP. INH SCH ×2 (07:01→19:25)
[2018-08-24] MEDS: SODIUM CHLORIDE 0.9% 1000ML 1,000 ML IV SCH (07:33)
[2018-08-24] MEDS: ASPIRIN 81 MG CHEW GT SCH (08:03)
[2018-08-24] MEDS: POLYETHYLENE (MIRALAX) 17 GM PACK GT SCH (08:03)
[2018-08-24] MEDS: OXYCODONE/ACETAMINOPHEN 5mg/325mg TAB PO PRN (08:03)
[2018-08-24] MEDS: predniSONE 10 MG TABLET GT SCH (08:04)
[2018-08-24] MEDS: MONTELUKAST SODIUM 10 MG TABLET GT SCH (08:05)
[2018-08-24] MEDS: ZINC SULFATE 220 MG CAPSULE GT SCH (08:06)
[2018-08-24] MEDS: FLUTICASONE/SALMETEROL (ADVAIR) 500/50 INH 14 PUFF INH SCH ×2 (08:06→21:17)
[2018-08-24] MEDS: FAMOTIDINE 20 MG TAB JT SCH ×2 (08:06→21:18)
[2018-08-24] MEDS: METOPROLOL TARTRATE 50 MG TAB PO SCH ×2 (08:06→21:18)
[2018-08-24] MEDS: ERTAPENEM SODIUM 1,000 MG in SODIUM CHLORIDE 0.9% 50 ML IV SCH (08:08)
--- NOTE | 2018-08-24 10:14 | CT Scan Report ---
CT chest wo con CLINICAL HISTORY: 63 years-old Male presenting with empyema follow-up. TECHNIQUE: Multidetector CT imaging of the chest was performed without the use of intravenous contras t. IV contrast: None. One or more dose lowering techniques were used consistent with the principles o f ALARA (as low as reasonably achievable), including automatic exposure control, mA or kV adjustment to individual patient size, and/or use of iterative reconstruction. COMPARISON: 08/20/2018. CT DOSE (mGy.cm): The estimated cumulative dose is 366.80 mGycm. FINDINGS: Complex Case Manager topogram: Tracheostomy tube in place. Left pigtail pleural catheter projects over the paramedia stinal left midlung. Heterogeneous and hyperinflated lungs. Soft tissues: Normal thyroid and thoracic inlet. Prominent though subcentimeter mediastinal lymph nod es similar to prior exam, nonspecific. Evaluation of the bilateral derek limited in the absence of int ravenous contrast. Atherosclerosis of the aorta. Mild ectasia of the ascending aorta. Normal heart si ze. Coronary artery and aortic valve calcification. Trace pericardial effusion. Left pigtail pleural drain positioned in the posterior left hemithorax possibly in the pleural space. Trace right pleural effusion. Upper abdomen normal. Lungs and airways: No pneumothorax. Tracheostomy tube in place terminating in the upper thoracic trac hea. Bronchial wall thickening and subsegmental bronchial debris in the lower lobes. Severe upper lob e predominant emphysema. Peribronchovascular consolidation in the right lower lobe is worse than on t he prior exam. There is extensive volume loss in the left lower lobe with debris in the left lower lo be bronchus (series 4 image 178). The degree of consolidation in the left lower lobe is not significa ntly changed. The reported empyema is not as well-defined in the absence of intravenous contrast thou gh grossly unchanged from prior. Allowing for this, gas posteriorly in the left hemithorax may be ple ural in location within the reported empyema. Biapical scarring noted right greater than left. Musculoskeletal: Degenerative changes of the spine. Prominent superior endplate concavity at T12, pos sibly Schmorl's node or prior compression deformity. IMPRESSION: 1. Unchanged position of the left pigtail catheter, presumably pleural. Lack of intravenous contrast limits delineation of the reported empyema. Allowing for this, no increased size or significant woodall ge in appearance. 2. Stable degree of consolidation and volume loss of the left lower lobe. 3. Significant increase peribronchovascular consolidation of the right lower lobe with new trace rig ht pleural effusion. Extensive bronchial debris in the right lower lobe. This is concerning for aspir ation or infection with a parapneumonic effusion. 4. Extensive bronchial debris in the left lower lobe. Electronically signed by: Wayne Rojo M.D. 08/24/2018 10:12 AM
--- NOTE | 2018-08-24 10:31 | Infectious Disease Progress Nt ---
Date of Service August 24, 2018 Assessment & Plan (1) Empyema of left pleural space: will change to Ertapenem 1 g daily for increased coverage, this will treat serratia as well. would give 10 day course.tolerating abx well. Subjective pt seen in followup, doing well. had ct done this am, now with increased RUL consolidation, chest tube in place. no pain, denies f/c. no sob, no increased secretions, denies cp. tolerating abx. all remaining ros reviewed and are negative Physical Exam Vital Signs (Past 24 Hours): Last Vital Signs Temp 36.8 C 08/24/18 04:00 Pulse 87 08/24/18 07:01 Resp 16 08/24/18 07:01 BP 104/57 L 08/24/18 04:00 Pulse Ox 92 08/24/18 07:01 Constitutional: WD/WN, vitals as above Eyes: PERRL, conjunctivae normal, anicteric sclerae ENMT: external ear and nose normal, oropharynx normal Neck: normal visual inspection Respiratory: normal respiratory effort; no labored breathing Auscultation: lungs clear to auscultation bilaterally and + diminished lung sounds; no crackles, no rhonchi and no wheezes Cardiovascular: RRR, no murmur, no edema Gastrointestinal (Abdomen): normal bowel sounds, soft, nontender, no hepatosplenomegaly Inspection/Auscultation: abdomen not distended and no abdominal edema Percussion/Palpation: abdomen nontender Musculoskeletal: no cyanosis or clubbing, extremities motor strength 5/5 Skin: no rashes, warm and dry Psychiatric: A+Ox3, euthymic affect Results & Data Laboratory Results Microbiology 08/18/18 11:21 Lung,Left Acid Fast Bacilli Smear - Final 08/18/18 11:21 Lung,Left Acid Fast Bacilli Culture - Preliminary No Acid-Fast Bacilli Isolated - Report 1, Additional Report to Follow. 08/20/18 11:19 Bronch Wash,Left Lower Lobe Acid Fast Bacilli Smear - Final 08/20/18 11:19 Bronch Wash,Left Lower Lobe Acid Fast Bacilli Culture - Preliminary No Acid-Fast Bacilli Isolated - Report 1, Additional Report to Follow. 08/20/18 11:19 Bronch Wash,Left Lower Lobe Gram Stain - Final 08/20/18 11:19 Bronch Wash,Left Lower Lobe Bronchoalveolar Lavage Culture - Final Corynebacterium species 08/18/18 11:21 Lung Gram Stain - Final 08/18/18 11:21 Lung Deep Wound Culture - Final Streptococcus intermedius Bacteroides pyogenes 08/20/18 11:19 Bronch Wash,Left Lower Lobe Fungal Smear - Final 08/20/18 11:19 Bronch Wash,Left Lower Lobe Fungal Culture - Preliminary No yeast or fungus isolated - Report 1, Additional Report to Follow. 08/11/18 23:33 Blood Blood Culture - Final No growth 08/11/18 23:25 Blood Blood Culture - Final No growth 08/12/18 Unknown Bronch Wash,Left Lower Lobe Gram Stain - Final 08/12/18 Unknown Bronch Wash,Left Lower Lobe Bronchoalveolar Lavage Culture - Final Corynebacterium species Serratia marcescens
[2018-08-24 16:23] LABS: BUN Creatinine Ratio 45.6 (10-20); Blood Urea Nitrogen 17 mg/dl (7-18); Carbon Dioxide 33 mmol/L (21-32); Chloride 93 mmol/L (98-107); Creatinine Clr Calc Pharmacy 157.7 ml/min; Est GFR (African American) > 150.0; Est GFR (Non-African American) 131.1; Glucose 117 mg/dl (70-99); Potassium 3.9 mmol/L (3.5-5.1); Sodium 130 mmol/L (136-145)
--- NOTE | 2018-08-24 17:46 | XRay Report ---
SINGLE VIEW CHEST CLINICAL HISTORY: Empyema. FINDINGS: 2 AP, portable, upright chest radiographs are compared to study dated 08/23/2018 and correla hattie with today's chest CT. The examination is degraded by portable technique and patient rotation. A tracheostomy is in place. A pigtail catheter projecting over the left chest is unchanged in position. The cardiomediastinal silhouette is unremarkable, noting atherosclerotic calcification of the thorac ic aorta. Advanced emphysema and chronic interstitial thickening are similar to previous. Bullous seb nge is again noted at the apices. Consolidative change and small pleural effusions are again seen at both lung bases, left greater than right. This is similar to yesterday. No pneumothorax is clearly se en. The skeletal structures are osteopenic. The bony thorax is grossly intact. IMPRESSION: 1. A pigtail catheter projecting over the left chest is unchanged in position. 2. Advanced emphysema. 3. Left greater than right bibasilar consolidation as well as small pleural effusions are similar to previous. Electronically signed by: Dwayne Mays M.D. 08/24/2018 5:45 PM
[2018-08-24] MEDS: DIGOXIN 0.125 MG/2.5 ML UDP PEG SCH (18:14)
[2018-08-24] MEDS: ALTEPLASE, RECOMBINANT 10 MG in SYRINGE 50 ML IPL SCH (18:21)
[2018-08-24] MEDS: DORNASE ALFA 5 ML in SYRINGE 25 ML IPL SCH (19:27)
--- NOTE | 2018-08-24 19:57 | Hospitalist Progress Note ---
Date of Service August 24, 2018 Assessment & Plan (1) Atrial fibrillation with rapid ventricular response: new onset atrial fibrillation with rapid ventricular response May be contributed by infection Reverted to sinus rhythm after being given Amiodarone Continue beta-kyaw to maintain direct and try to avoid amiodarone as per operative supervisor No long-term anticoagulation -- remains in SR (2) Pneumonia involving left lung: Admitted with sepsis likely secondary to pneumonia Pneumonia involves the left middle and lower lobe s/p bronchoscopy no evidence of tracheal esophageal fistula Thoracic surgery has been consulted for possible aspiration and/or thoracic tube placement Status post left thoracotomy tube placement cultures: (+) Serratia, Strep, Bacteroides on Levaquin, transitioned to ertapenem per ID recommendation Repeat CT scan : IMPRESSION: 1. Unchanged position of the left pigtail catheter, presumably pleural. Lack of intravenous contrast limits delineation of the reported empyema. Allowing for this, no increased size or significant change in appearance. 2. Stable degree of consolidation and volume loss of the left lower lobe. 3. Significant increase peribronchovascular consolidation of the right lower lobe with new trace right pleural effusion. Extensive bronchial debris in the right lower lobe. This is concerning for aspiration or infection with a parapneumonic effusion. 4. Extensive bronchial debris in the left lower lobe. -- awaiting further recs by [facility] (3) Biventricular heart failure: Has history of biventricular heart failure with an EF of around 20% No overt CHF at this time Restrict fluid to 1500 mL's a day Diuretics on hold (4) Sepsis: As above (5) Hyponatremia: Na 130 stable now (6) COPD exacerbation: continue Prednisone , Nebs (7) Empyema of left pleural space: management per #1 (8) Mucus plugging of bronchi: Status post bronchoscopy and suction He does not have significant cough reflex and cannot bring out excessive secretions will need periodic bronchoscopy as per leather stitcher DVT Prophylaxis Heparin SC q8h Subjective ff up for empyema seen resting in bed, comfortable , in good spirits states breathing is fine less cough denies chest pain no other symptoms Physical Exam Vital Signs (Past 24 Hours): Last Vital Signs Temp 37.4 C 08/24/18 16:02 Pulse 82 08/24/18 19:21 Resp 18 08/24/18 19:21 BP 100/57 L 08/24/18 16:02 Pulse Ox 95 08/24/18 19:21 Physical Exam: General- oriented x 3, not in distress, speaks in sentences with no effort or accessory muscle use Eyes- anicteric Neck- no JVD Lungs- (+) decreased BS at the bases, occasional rhonchi Heart- normal rate, regular rhythm; no murmurs Abdomen- normal bowel sounds, nondistended, soft, nontender peg tube in place: no bleeding, discharge Extremities- no pretibial edema, no calf tenderness Neuro- alert, oriented x 3; no gross focal neurologic deficits Skin- warm & dry Results & Data Laboratory Results Laboratory Results - last 24 hr 08/24/18 15:44 Sodium 130 L Potassium 3.9 Chloride 93 L Carbon Dioxide 33 H Anion Gap 4.0 BUN 17 Creatinine 0.36 L Est Cr Clr Drug Dosing 157.7 Est GFR ( Amer) > 150.0 Est GFR (Non-Af Amer) 131.1 BUN/Creatinine Ratio 45.6 H Glucose 117 H Calcium 8.0 L (1) Pneumonia involving left lung Lung location: lower lobe of lung Pneumonia type: due to unspecified organism Qualified Code(s): J18.1 - Lobar pneumonia, unspecified organism
--- NOTE | 2018-08-24 21:29 | Progress Note ---
DATE: 08/24/2018 Mr. Shirley was seen today. He actually does not look bad. I think that he is actually improved; however, I was not very happy with his CT scan. He still has some fluid, although much improved. I am going to resume the MIST-2 protocol for another 3 days and my hope is that we can get further drainage from this loculated fluid. I simply do not feel like this patient is going to do well with any type of surgery and a chest tube would be problematic. We will see how he responds to this.
--- NOTE | 2018-08-25 00:12 | Communication Note ---
Date of Service: August 25, 2018 ~ 0005 Patient receiving alteplase via chest tube for empyema. Also receiving SQ heparin for VTE prophylaxis. Developed hemoptysis with moderate amount of grossly bloody sputum via trach. Chest tube draining dark / sanguinous fluid. Pt denies CP or SOB. Oxygenating well with 28% trach shield. Vital signs stable. Genl- NAD Neck- fresh blood via trach Lungs - bilat rhonchi Heart- RRR CXR- trach, left chest tube, bilat infiltrates L > R similar to previous films (prelim interpretation) Labs ordered: CBC, INR, PTT, fibrinogen, type/screen. Atleplase and SQ heparin held. Clinically stable; no need for blood products or other interventions at this time. Continue to monitor.
[2018-08-25 00:18] LABS: Basophils # (auto) 0.01 K/uL (0-0.2); Basophils % (auto) 0.1 %; Hematocrit (blood only) 25.1 % (42-52); Hemoglobin 8.4 g/dL (14.0-18.0); Immature Granulocytes # (auto) 0.54 K/uL (0.00-0.02); Immature Granulocytes % (auto) 2.9 %; Lymphocytes % (auto) 6.5 %; Mean Corpuscular Volume 89.6 fL (80-100); Mean Platelet Volume 8.6 fL (7.4-10.4); Monocytes # (auto) 1.25 K/uL (0.11-0.59); Monocytes % (auto) 6.8 %; Neutrophils # (auto) 15.33 K/uL (1.4-6.5); Neutrophils % (auto) 83.7 %; Platelet Count 241 K/uL (130-400); RDW Coefficient of Variation 18.3 % (11.5-14.5); RDW Standard Deviation 58.9 fL (36.4-46.3); White Blood Count 18.33 K/uL (4.8-10.8)
[2018-08-25 00:42] LABS: Mean Corpuscular Hgb Conc 33.5 g/dL (32-36)
[2018-08-25 00:44] LABS: RBC Morphology Unremarkable
[2018-08-25 00:48] LABS: Fibrinogen 494 mg/dl (184-400); INR 1.1 (0.9-1.1); Partial Thromboplastin Ratio 1.3; Prothrombin Time 11.4 Seconds (9.0-12.0)
[2018-08-25] MEDS: GLYCOPYRROLATE 1 MG TAB PO SCH ×4 (01:30→20:50)
[2018-08-25] MEDS: METOCLOPRAMIDE HCL 5 MG/5 ML UDP PEG SCH ×4 (01:30→17:05)
[2018-08-25] MEDS: ALBUT/IPRATROP 3MG/0.5MG NEB 3 ML VIAL INH SCH ×6 (04:44→23:07)
[2018-08-25] MEDS: SODIUM CHLORIDE 0.9% 1000ML 1,000 ML IV SCH (05:41)
[2018-08-25 05:47] LABS: Hematocrit (blood only) 21.4 % (42-52); Hemoglobin 7.2 g/dL (14.0-18.0); Mean Corpuscular Hgb Conc 33.6 g/dL (32-36); Mean Corpuscular Volume 88.8 fL (80-100); Mean Platelet Volume 8.5 fL (7.4-10.4); Platelet Count 229 K/uL (130-400); RDW Coefficient of Variation 18.3 % (11.5-14.5); RDW Standard Deviation 60.5 fL (36.4-46.3); Red Blood Count 2.41 M/uL (4.7-6.1); White Blood Count 16.51 K/uL (4.8-10.8)
[2018-08-25 06:22] LABS: BUN Creatinine Ratio 103.4 (10-20); Blood Urea Nitrogen 18 mg/dl (7-18); Calcium 7.8 mg/dl (8.5-10.1); Carbon Dioxide 30 mmol/L (21-32); Chloride 95 mmol/L (98-107); Creatinine Clr Calc Pharmacy 334.1 ml/min; Est GFR (African American) > 150.0; Est GFR (Non-African American) > 150.0; Glucose 102 mg/dl (70-99); Potassium 3.9 mmol/L (3.5-5.1); Sodium 130 mmol/L (136-145)
[2018-08-25] MEDS: ALTEPLASE, RECOMBINANT 10 MG in SYRINGE 50 ML IPL SCH (06:24)
[2018-08-25] MEDS: DORNASE ALFA 5 ML in SYRINGE 25 ML IPL SCH (06:24)
--- NOTE | 2018-08-25 06:39 | XRay Report ---
XR chest 1V portable HISTORY: 63 years-old Male hemoptysis acute hemoptysis COMPARISON: Chest CT and chest radiograph 08/24/2018 TECHNIQUE: Portable AP view of the chest FINDINGS: The cardiomediastinal and hilar silhouettes are unchanged. Stable positioning of the left sided pigta il drainage catheter. Tracheostomy cannula is unchanged. No pneumothorax. Left greater than right bib asilar opacities are again noted with ill-defined densities of the left midlung also seen, unchanged. Advanced emphysema with chronic interstitial coarsening. Unchanged left pleural effusion. Trace righ t pleural effusion. IMPRESSION: 1. Stable positioning of the left-sided pleural drainage catheter with unchanged opacities about the left midlung and left lung base. 2. Trace right pleural effusion with right basilar airspace opacities. 3. Advanced emphysema with chronic interstitial coarsening.. 4. No pneumothorax. The above report was generated using voice recognition software. It may contain grammatical, syntax o r spelling errors. Electronically signed by: Jason Marcus M.D. 08/25/2018 6:38 AM
--- NOTE | 2018-08-25 07:17 | XRay Report ---
XR chest 1V portable HISTORY: 63 years-old Male coughing up blood acute cough COMPARISON: Chest radiograph 08/24/2018 TECHNIQUE: Portable AP view of the chest FINDINGS: Tracheostomy cannula and left-sided pigtail drainage catheter appears unchanged. No pneumothorax iden tified. Advanced emphysema with chronic interstitial coarsening. Unchanged left pleural effusion. Tra ce right pleural effusion. Stable opacities about the left midlung and left lung base with patchy rig ht basilar airspace opacities. Degenerative changes of the shoulders and spine. IMPRESSION: 1. Stable positioning of the left-sided pleural drainage catheter. No pneumothorax. 2. Unchanged opacities of the left midlung and left lung base with stable left pleural effusion. 3. Trace right pleural effusion with right lung base opacities. 4. Severe emphysema. The above report was generated using voice recognition software. It may contain grammatical, syntax o r spelling errors. Electronically signed by: Jason Marcus M.D. 08/25/2018 7:16 AM
[2018-08-25] MEDS: ASPIRIN 81 MG CHEW GT SCH (08:53)
[2018-08-25] MEDS: POLYETHYLENE (MIRALAX) 17 GM PACK GT SCH (08:53)
[2018-08-25] MEDS: OXYCODONE/ACETAMINOPHEN 5mg/325mg TAB PO PRN ×2 (08:54→23:56)
[2018-08-25] MEDS: METOPROLOL TARTRATE 50 MG TAB PO SCH ×2 (08:55→20:48)
[2018-08-25] MEDS: MONTELUKAST SODIUM 10 MG TABLET GT SCH (08:55)
[2018-08-25] MEDS: predniSONE 10 MG TABLET GT SCH (08:56)
[2018-08-25] MEDS: ZINC SULFATE 220 MG CAPSULE GT SCH (08:56)
[2018-08-25] MEDS: FLUTICASONE/SALMETEROL (ADVAIR) 500/50 INH 14 PUFF INH SCH ×2 (08:56→20:50)
[2018-08-25] MEDS: FAMOTIDINE 20 MG TAB JT SCH ×2 (08:56→20:51)
[2018-08-25] MEDS: ERTAPENEM SODIUM 1,000 MG in SODIUM CHLORIDE 0.9% 50 ML IV SCH (09:19)
[2018-08-25] MEDS ORDERED: SODIUM CHLORIDE 0.9% 250 ML IV PRN (09:50)
--- NOTE | 2018-08-25 10:01 | Hospitalist Progress Note ---
Date of Service August 25, 2018 delayed entry date of service as noted above Assessment & Plan (1) Atrial fibrillation with rapid ventricular response: new onset atrial fibrillation with rapid ventricular response May be contributed by infection Reverted to sinus rhythm after being given Amiodarone Continue beta-kyaw to maintain direct and try to avoid amiodarone as per physical therapy teacher No long-term anticoagulation -- remains in SR (2) Pneumonia involving left lung: Admitted with sepsis likely secondary to pneumonia Pneumonia involves the left middle and lower lobe s/p bronchoscopy no evidence of tracheal esophageal fistula Thoracic surgery has been consulted for possible aspiration and/or thoracic tube placement Status post left thoracotomy tube placement cultures: (+) Serratia, Strep, Bacteroides on Levaquin, transitioned to ertapenem per ID recommendation Repeat CT scan : IMPRESSION: 1. Unchanged position of the left pigtail catheter, presumably pleural. Lack of intravenous contrast limits delineation of the reported empyema. Allowing for this, no increased size or significant change in appearance. 2. Stable degree of consolidation and volume loss of the left lower lobe. 3. Significant increase peribronchovascular consolidation of the right lower lobe with new trace right pleural effusion. Extensive bronchial debris in the right lower lobe. This is concerning for aspiration or infection with a parapneumonic effusion. 4. Extensive bronchial debris in the left lower lobe. -- maintained on chest tube s/p repeat Bronchosopy for significant hemoptysis: no evidence of acute bleeding alteplase and heparin discontinued -- Ertapenem IV continued x 10 day course (3) Acute blood loss anemia: significant hemoptysis //19 Hg dropped to 7 2 units PRBC ordered monitor (4) Biventricular heart failure: Has history of biventricular heart failure with an EF of around 20% No overt CHF at this time Restrict fluid to 1500 mL's a day Diuretics on hold (5) Sepsis: As above (6) Hyponatremia: Na 130 stable now (7) COPD exacerbation: continue Prednisone , Nebs (8) Empyema of left pleural space: management per #1 (9) Mucus plugging of bronchi: Status post bronchoscopy and suction He does not have significant cough reflex and cannot bring out excessive secretions will need periodic bronchoscopy as per assembly machine operator DVT Prophylaxis Heparin SC q8h Subjective ff up for empyema seen resting in bed, comfortable had significant hemoptysis overnight alteplase and heparin SC discontinued no recurrence so far denies shortness of breath, chest pain no other symptoms Physical Exam Vital Signs (Past 24 Hours): Last Vital Signs Temp 37 C 08/25/18 08:00 Pulse 97 H 08/25/18 08:00 Resp 18 08/25/18 08:00 BP 100/55 L 08/25/18 08:00 Pulse Ox 94 08/25/18 08:00 Physical Exam: General- oriented x 3, not in distress, no effort or accessory muscle use Eyes- anicteric Neck- no JVD trach site: no active bleeding Lungs-decreased breath sound with some rhonchi bilateral bases no wheezing Heart- normal rate, regular rhythm; no murmurs Abdomen- normal bowel sounds, nondistended, soft, nontender PEG tube: no bleeding, discharge Extremities- no pretibial edema, no calf tenderness Neuro- alert, oriented x 3; no gross focal neurologic deficits Skin- warm & dry Results & Data Laboratory Results noted, reviewed (1) Pneumonia involving left lung Lung location: lower lobe of lung Pneumonia type: due to unspecified organism Qualified Code(s): J18.1 - Lobar pneumonia, unspecified organism
[2018-08-25] MEDS ORDERED: FUROSEMIDE 20 MG in SYRINGE 0 ML IV SCH (10:30)
[2018-08-25] MEDS ORDERED: MIDAZOLAM HCL 1 MG/ML 2ML VIAL ONE (11:19)
[2018-08-25] MEDS ORDERED: fentaNYL citrate 100 MCG/2 ML VIAL ONE (11:19)
[2018-08-25] MEDS ORDERED: MIDAZOLAM HCL 5 MG/ML 1 ML VIAL IV STA (11:34)
[2018-08-25] MEDS ORDERED: fentaNYL citrate 100 MCG/2 ML VIAL IV STA (11:34)
--- NOTE | 2018-08-25 11:36 | Pre Anesthesia Assessment ---
Date of Service August 25, 2018 Pre Sedation Assessment Vital Signs Temp Pulse Pulse Pulse Pulse Resp BP 08/25/18 11:30 88 15 08/25/18 11:25 108 H 18 08/25/18 11:22 107 H 12 91/57 L 08/25/18 11:05 37 C 85 18 93/55 L 08/25/18 10:57 82 18 08/25/18 08:00 37 C 97 H 18 08/25/18 07:10 84 16 08/25/18 03:57 36.8 C 95 H 19 08/24/18 23:23 77 20 08/24/18 23:13 36.5 C 79 17 08/24/18 20:32 36.8 C 83 18 08/24/18 19:21 82 18 08/24/18 16:02 37.4 C 78 18 08/24/18 16:00 85 08/24/18 14:50 74 18 08/24/18 12:17 37.5 C 72 18 BP BP Pulse Ox 08/25/18 11:30 91/55 L 97 08/25/18 11:25 91/57 L 95 08/25/18 11:22 87/54 L 97 08/25/18 11:05 28 L 08/25/18 10:57 28 L 08/25/18 08:00 100/55 L 94 08/25/18 07:10 93 08/25/18 03:57 129/73 93 08/24/18 23:23 90 08/24/18 23:13 98/60 L 98 08/24/18 20:32 107/60 90 08/24/18 19:21 95 08/24/18 16:02 100/57 L 96 08/24/18 16:00 08/24/18 14:50 96 08/24/18 12:17 101/61 98 Pre-Sedation Airway Assessment Smoking Status: Former smoker Hx Sleep Apnea: No Short, Thick Neck: No Thyromental Distance: > or= 3.5 Finger Breadths Oral Cavity: + Dental Abnormalities Mallampati Class: I ASA: ASA3 NPO Status Date of Last Intake of Fluids: 08/20/18 Last Intake of Solids Comment: Patient has PEG Notes The planned sedation has been discussed with the patient. Informed Consent was obtained. I have identified the patient, determined the appropriateness of sedation and have assessed the patient immediately prior to the procedure. All medicine(s) and interventions are by my order.
--- NOTE | 2018-08-25 11:36 | Post Anesthesia Assessment ---
Date of Service August 25, 2018 Post Sedation Assessment Vital Signs Temp Pulse Pulse Pulse Pulse Resp BP 08/25/18 11:30 88 15 08/25/18 11:25 108 H 18 08/25/18 11:22 107 H 12 91/57 L 08/25/18 11:05 37 C 85 18 93/55 L 08/25/18 10:57 82 18 08/25/18 08:00 37 C 97 H 18 08/25/18 07:10 84 16 08/25/18 03:57 36.8 C 95 H 19 08/24/18 23:23 77 20 08/24/18 23:13 36.5 C 79 17 08/24/18 20:32 36.8 C 83 18 08/24/18 19:21 82 18 08/24/18 16:02 37.4 C 78 18 08/24/18 16:00 85 08/24/18 14:50 74 18 08/24/18 12:17 37.5 C 72 18 BP BP Pulse Ox 08/25/18 11:30 91/55 L 97 08/25/18 11:25 91/57 L 95 08/25/18 11:22 87/54 L 97 08/25/18 11:05 28 L 08/25/18 10:57 28 L 08/25/18 08:00 100/55 L 94 08/25/18 07:10 93 08/25/18 03:57 129/73 93 08/24/18 23:23 90 08/24/18 23:13 98/60 L 98 08/24/18 20:32 107/60 90 08/24/18 19:21 95 08/24/18 16:02 100/57 L 96 08/24/18 16:00 08/24/18 14:50 96 08/24/18 12:17 101/61 98 Recovery Score Activity: Moves 4 extremities Respiration: Deep Breath/Cough Circulation: +/-20% PreAnes Value Consciousness: Arouseable (by name) Oxygen Saturation: > 92% On Room Air Post Anesthesia Score: 9 Post Sedation Plan On clinical assessment, the patient appears to have tolerated the sedation without complications. Patient is recovering as anticipated. Patient will continue to be monitored by nursing and may be discharged when sedation discharge criteria are met per below protocol. Upon Completions of procedure and additional 15 minutes continue every 5 minute vital signs and the P.A.R. score; then discharge to a Phase I or Fast Track to Phase II per the following guidelines: * Discharge Patient to appropriate Phase II area if PAR is 8 or greater or return to pre- procedure baseline. The post - procedure orders will be as directed. * If PAR score is less than 8 or not return to pre-procedure baseline then patient will follow Phase I monitoring till PAR is reached for Phase II. The Phase I may be done in procedure room or may call to secure a Phase I area. * If naloxone or flumazenil are used for reversal, hold in Phase I for continued monitoring from when last reversal dose was given for a minimum of 60 minutes or longer pending the nurse and/or physician discretion of patient condition before discharge to Phase II. Please call the Sedation Physician to re-evaluate and complete post-note for discharge to Phase II area. Do NOT discharge from procedure sedation or Phase 1 until post- sedation evaluation note is complete by procedure /sedation MD Sedation Discharge Instructions to be given to the patient at discharge to home.
--- NOTE | 2018-08-25 11:38 | Post Operative Brief Note ---
Immediate Post Op Note v1 Date of Surgery August 25, 2018 Pre & Post Diagnosis Pre-op: Hemoptysis Post-op: No evidence of acute bleeding Procedure Fiberoptic bronchoscopy Surgeon Kehinde Carlin MD, FACS [employer] Nursing staff Estimated Blood Loss 0 Findings Consistent with Post-Op Diagnosis
[2018-08-25] MEDS ORDERED: Nursing to Pharmacy Communication ONE (15:39)
[2018-08-25] MEDS: DIGOXIN 0.125 MG/2.5 ML UDP PEG SCH (17:05)
--- NOTE | 2018-08-25 20:45 | Operative Report ---
DATE OF OPERATION: 08/25/2018 PREOPERATIVE DIAGNOSES: 1. Hemoptysis: 2. Left pleural empyema. 3. MIST-2 protocol. PROCEDURE: Fiberoptic bronchoscopy. SURGEON: Kehinde Carlin MD NURSING EDUCATION SPECIALIST: Junior Olvera, registered respiratory therapist. ANESTHESIA: Sedation. SPECIFICS OF PROCEDURE: Rodolfo Shirley is a very ill 63-year-old inmate who is quite cachectic and has multiple medical issues, among which is a respiratory failure resulting in a tracheostomy. The patient also was found to have a pleural empyema. A pigtail catheter was placed in this by Dr. Patel Yee from radiology and we drained over 200 mL of pus. This cultured out Streptococcus intermedius and bacteroides. We placed on appropriate antibiotics and we did the MIST-2 protocol and he had some improvement with decrease in the size of this. However, CT scan was repeated yesterday and I was disappointed to see there was still a collection of fluid, although much smaller. I elected to proceed with a repeat course of the MIST-2 which includes tissue plasminogen activator and Dornase. Unfortunately, he developed bleeding around the site last night after his dose of tissue plasminogen activator and then began having some hemoptysis. We stopped that process after this. X-ray looks about the same. He had significant hemoptysis and had some old blood in his tracheostomy stoma. I elected to proceed with a fiberoptic bronchoscopy to make sure there was no active bleeding. DESCRIPTION OF PROCEDURE: In the ICU, the patient was sedated. He has tracheostomy in place. We changed the inner cannula and suctioned him out. After appropriate timeout had been called and he had been sedated with fentanyl and Versed, fiberoptic scope was placed through his tracheostomy stoma after the inner cannula had been removed. He had some old blood, which was suctioned out of the trachea, but really I was surprised at how clear his lungs were. He really had very little in the right bronchial tree. I irrigated this with saline and really did not see much. We suctioned this clear quite quickly. He did have some old clot in the left lower lobe bronchus which I suctioned; however, this quickly cleared also. There was no active bleeding. There was no purulent sputum. All of his airways were clear. I slowly removed the bronchoscope and replaced the inner cannula with a clean one. He tolerated it quite well. I attest to the content of the Intraoperative Record and any orders documented therein. Any exception s are noted below.
[2018-08-26] MEDS: METOCLOPRAMIDE HCL 5 MG/5 ML UDP PEG SCH ×5 (00:29→23:35)
[2018-08-26] MEDS: GLYCOPYRROLATE 1 MG TAB PO SCH ×4 (02:09→21:16)
[2018-08-26] MEDS: ALBUT/IPRATROP 3MG/0.5MG NEB 3 ML VIAL INH SCH ×6 (03:44→23:18)
[2018-08-26] MEDS: SODIUM CHLORIDE 0.9% 1000ML 1,000 ML IV SCH (05:37)
--- NOTE | 2018-08-26 08:15 | XRay Report ---
XR chest 1V portable CLINICAL HISTORY: 63 years-old Male presenting with empyema. TECHNIQUE: Portable upright AP view of the chest was obtained. COMPARISON: 08/25/2018. FINDINGS: Tracheostomy tube and left pigtail pleural drain remain in place. Cardiomediastinal silhouette normal . Lungs remain hyperinflated. Persistent mid to basilar predominant left lung opacity. Heterogeneity of lung parenchyma with relative radiolucency of the upper lobes. No convincing evidence of a pneumot horax. Left pleural effusion not excluded. Osseous structures normal. IMPRESSION: 1. No significant change in the left mid to basilar opacities and left pleural effusion from the khai or exam. 2. Severe emphysema. Electronically signed by: Wayne Rojo M.D. 08/26/2018 8:14 AM
[2018-08-26] MEDS: FLUTICASONE/SALMETEROL (ADVAIR) 500/50 INH 14 PUFF INH SCH ×2 (08:37→21:16)
[2018-08-26] MEDS: METOPROLOL TARTRATE 50 MG TAB PO SCH ×2 (08:37→21:16)
[2018-08-26] MEDS: predniSONE 10 MG TABLET GT SCH (08:38)
[2018-08-26] MEDS: ZINC SULFATE 220 MG CAPSULE GT SCH (08:38)
[2018-08-26] MEDS: FAMOTIDINE 20 MG TAB JT SCH ×2 (08:38→21:17)
[2018-08-26] MEDS: MONTELUKAST SODIUM 10 MG TABLET GT SCH (08:38)
[2018-08-26] MEDS: ERTAPENEM SODIUM 1,000 MG in SODIUM CHLORIDE 0.9% 50 ML IV SCH (08:38)
[2018-08-26] MEDS: ASPIRIN 81 MG CHEW GT SCH (08:50)
[2018-08-26] MEDS: POLYETHYLENE (MIRALAX) 17 GM PACK GT SCH (08:50)
--- NOTE | 2018-08-26 10:20 | Progress Note ---
DATE: 08/26/2018 Mr. Shirley was seen today. His sputum output has decreased from his tracheostomy tube. He still has some rhonchi of course. He put out about 200 mL total through his chest tube. This is bloody. We have of course stopped our TPA. In reviewing his x-ray, it did appear to me to be a little better than yesterday. He still has a small effusion on the left, but otherwise I think that his x-ray looks stable. I am a bit worried about the left base on the CT scan a few days ago, but upon bronchoscopy yesterday, he really did not have much. At this point, we are going to leave the pigtail catheter in until it stops draining. I suspect this is going to decrease in the next few days. We do need to check a hemoglobin on him today after transfusing.
--- NOTE | 2018-08-26 15:57 | Hospitalist Progress Note ---
Date of Service August 26, 2018 Assessment & Plan (1) Empyema of left pleural space: Suffered from pneumonia on admission likely secondary to aspiration Developed pleural effusion which came out to be secondary to empyema Appreciate thoracic surgery input and subsequent chest tube placement Still draining considerable amount Of the chest tube will be there for the next few days (2) Mucus plugging of bronchi: Status post bronchoscopy and suction He does not have significant cough reflex and cannot bring out excessive secretions will need periodic bronchoscopy as per secondary teacher Repeat bronchoscopy done (3) Atrial fibrillation with rapid ventricular response: new onset atrial fibrillation with rapid ventricular response May be contributed by infection Reverted to sinus rhythm after being given Amiodarone Continue beta-kyaw to maintain direct and try to avoid amiodarone as per ceramic products sales engineer No long-term anticoagulation -- remains in SR (4) Pneumonia involving left lung: Admitted with sepsis likely secondary to pneumonia Pneumonia involves the left middle and lower lobe s/p bronchoscopy no evidence of tracheal esophageal fistula Thoracic surgery has been consulted for possible aspiration and/or thoracic tube placement Status post left thoracotomy tube placement cultures: (+) Serratia, Strep, Bacteroides on Levaquin, transitioned to ertapenem per ID recommendation Repeat CT scan : IMPRESSION: 1. Unchanged position of the left pigtail catheter, presumably pleural. Lack of intravenous contrast limits delineation of the reported empyema. Allowing for this, no increased size or significant change in appearance. 2. Stable degree of consolidation and volume loss of the left lower lobe. 3. Significant increase peribronchovascular consolidation of the right lower lobe with new trace right pleural effusion. Extensive bronchial debris in the right lower lobe. This is concerning for aspiration or infection with a parapneumonic effusion. 4. Extensive bronchial debris in the left lower lobe. Maintained on chest tube s/p repeat Bronchosopy for significant hemoptysis: no evidence of acute bleeding alteplase and heparin discontinued -- Ertapenem IV continued x 10 day course (5) Acute blood loss anemia: significant hemoptysis 4/2/19 Hg dropped to 7 2 units PRBC ordered monitor H&H (6) Biventricular heart failure: Has history of biventricular heart failure with an EF of around 20% No overt CHF at this time Restrict fluid to 1500 mL's a day Diuretics on hold (7) Sepsis: As above (8) Hyponatremia: Na 130 stable now (9) COPD exacerbation: continue Prednisone , Nebs Remains stable DVT prophylaxis Subcu heparin CODE STATUS DNR Subjective 08/26 The patient was seen and examined in telemetry unit Is a status post chest tube placement for empyema He has had bronchoscopy following the Clinically he feels better Symptomatically stable Physical Exam Vital Signs (Past 24 Hours): Last Vital Signs Temp 36.6 C 08/26/18 11:26 Pulse 83 08/26/18 15:37 Resp 18 08/26/18 15:37 BP 94/61 L 08/26/18 11:26 Pulse Ox 96 08/26/18 15:37 Physical Exam: No apparent distress at rest Constitutional: + ill appearing and + thin; no acute distress Eyes: PERRL, conjunctivae normal, anicteric sclerae ENMT: external ear and nose normal, oropharynx normal Mallampati Class: I Neck: Has tracheostomy tube in situ Respiratory: normal respiratory effort Auscultation: + diminished lung sounds, + crackles and + wheezes Has chest tube in the right lower chest wall Cardiovascular: Rate/Rhythm: + tachycardic Heart Sounds: normal S1 and normal S2 Gastrointestinal (Abdomen): Inspection/Auscultation: abdomen normal to inspection Percussion/Palpation: abdomen soft Neurologic: awake Results & Data Medications Administered Current Inpatient Medications Albuterol (Duoneb) 3 ml INH Q4R [facility] Stop: 09/11/18 03:59 Last Admin: 08/26/18 15:35 Dose: 3 ml Documented by: Aspirin (Aspirin Chew) 81 mg GT DAILY [facility] Stop: 09/11/18 08:59 Last Admin: 08/26/18 08:50 Dose: 81 mg Documented by: Digoxin (Lanoxin) 0.125 mg PEG DAILY@1600 [facility] Stop: 09/17/18 15:59 Last Admin: 08/25/18 17:05 Dose: 0.125 mg Documented by: Enteral Nutritional Formula (Impact 1.0 Galo) 1,000 ml PEG UD [facility]; Protocol Stop: 09/11/18 15:14 Last Admin: 08/21/18 10:45 Dose: 1,000 ml Documented by: Famotidine (Pepcid) 20 mg JT BID [facility] Stop: 09/13/18 12:25 Last Admin: 08/26/18 08:38 Dose: 20 mg Documented by: Glycopyrrolate (Robinul) 0.5 mg PO Q6H [facility] Stop: 09/14/18 13:59 Last Admin: 08/26/18 13:54 Dose: 0.5 mg Documented by: Sodium Chloride (Nss 1000ml) 1,000 mls @ 50 mls/hr IV .Q20H [facility] Stop: 09/11/18 03:19 Last Admin: 08/26/18 05:37 Dose: 50 mls/hr Documented by: Ertapenem 1,000 mg/ Sodium (Chloride) 60 mls @ 100 mls/hr IV Q24H [facility] Stop: 08/30/18 08:59 Last Infusion: 08/26/18 10:12 Dose: Infused Documented by: Alteplase, Recombinant 10 mg/ (Syringe) 60 mls @ 0 mls/hr IPL Q12H [facility]; Protocol Last Admin: 08/25/18 06:24 Dose: Not Given Documented by: Dornase Saul 5 ml/ Syringe 30 mls @ 0 mls/hr IPL Q12H [facility]; Protocol Last Admin: 08/25/18 06:24 Dose: Not Given Documented by: Lactulose (Chronulac) 30 gm GT Q6H PRN PRN Reason: until BM daily occured Stop: 09/13/18 13:59 Metoclopramide HCl (Reglan) 5 mg PEG Q6 [facility] Stop: 09/16/18 11:59 Last Admin: 08/26/18 13:54 Dose: 5 mg Documented by: Metoprolol Tartrate (Lopressor) 50 mg PO BID [facility]; Protocol Stop: 09/11/18 08:59 Last Admin: 08/26/18 08:37 Dose: 50 mg Documented by: Montelukast Sodium (Singulair) 10 mg GT QAM [facility] Stop: 09/11/18 08:59 Last Admin: 08/26/18 08:38 Dose: 10 mg Documented by: Oxycodone/Acetaminophen (Percocet 5mg/325mg) 1 tab PO Q4H PRN PRN Reason: Pain Stop: 09/01/18 20:42 Last Admin: 08/25/18 23:56 Dose: 1 tab Documented by: Polyethylene Glycol (Miralax Powder Packet) 17 gm GT DAILY [facility] Stop: 09/11/18 08:59 Last Admin: 08/26/18 08:50 Dose: 17 gm Documented by: Prednisone (Prednisone) 30 mg GT DAILY [facility] Stop: 09/19/18 08:59 Last Admin: 08/26/18 08:38 Dose: 30 mg Documented by: Fluticasone/Salmeterol (Advair Diskus 500/50) 1 puffs INH BID [facility] Stop: 09/11/18 08:59 Last Admin: 08/26/18 08:37 Dose: 1 puffs Documented by: Zinc Sulfate (Zinc Sulfate) 220 mg GT DAILY [facility] Stop: 09/11/18 08:59 Last Admin: 08/26/18 08:38 Dose: 220 mg Documented by: (1) Pneumonia involving left lung Lung location: lower lobe of lung Pneumonia type: due to unspecified organism Qualified Code(s): J18.1 - Lobar pneumonia, unspecified organism
[2018-08-26] MEDS: DIGOXIN 0.125 MG/2.5 ML UDP PEG SCH (17:32)
[2018-08-26] MEDS: OXYCODONE/ACETAMINOPHEN 5mg/325mg TAB PO PRN (17:47)
[2018-08-27] MEDS: IMPACT LIQD 1.0 CAL 1,000 ML BAG PEG SCH ×2 (01:00→18:20)
[2018-08-27] MEDS: SODIUM CHLORIDE 0.9% 1000ML 1,000 ML IV SCH ×2 (01:05→21:35)
[2018-08-27] MEDS: GLYCOPYRROLATE 1 MG TAB PO SCH ×4 (02:04→21:34)
[2018-08-27] MEDS: ALBUT/IPRATROP 3MG/0.5MG NEB 3 ML VIAL INH SCH ×6 (03:33→23:36)
[2018-08-27] MEDS: METOCLOPRAMIDE HCL 5 MG/5 ML UDP PEG SCH ×3 (05:30→16:49)
[2018-08-27 05:49] LABS: Hematocrit (blood only) 26.6 % (42-52); Hemoglobin 9.3 g/dL (14.0-18.0); Mean Corpuscular Volume 88.4 fL (80-100); Mean Platelet Volume 8.9 fL (7.4-10.4); Platelet Count 181 K/uL (130-400); RDW Coefficient of Variation 17.6 % (11.5-14.5); RDW Standard Deviation 56.4 fL (36.4-46.3); Red Blood Count 3.01 M/uL (4.7-6.1); White Blood Count 9.71 K/uL (4.8-10.8)
[2018-08-27 06:13] LABS: BUN Creatinine Ratio 102.4 (10-20); Blood Urea Nitrogen 18 mg/dl (7-18); Carbon Dioxide 30 mmol/L (21-32); Chloride 95 mmol/L (98-107); Creatinine Clr Calc Pharmacy 329.1 ml/min; Est GFR (African American) > 150.0; Est GFR (Non-African American) > 150.0; Glucose 97 mg/dl (70-99); Magnesium 1.6 mg/dl (1.8-2.4); Potassium 3.8 mmol/L (3.5-5.1); Sodium 131 mmol/L (136-145)
[2018-08-27 06:17] LABS: Basophils # (auto) 0.02 K/uL (0-0.2); Basophils % (auto) 0.2 %; Eosinophils # (auto) 0.03 K/uL (0-0.5); Eosinophils % (auto) 0.3 %; Immature Granulocytes # (auto) 0.56 K/uL (0.00-0.02); Immature Granulocytes % (auto) 5.8 %; Lymphocytes # (auto) 0.99 K/uL (1.2-3.4); Lymphocytes % (auto) 10.2 %; Monocytes # (auto) 0.78 K/uL (0.11-0.59); Neutrophils # (auto) 7.33 K/uL (1.4-6.5); Neutrophils % (auto) 75.5 %
--- NOTE | 2018-08-27 07:45 | XRay Report ---
SINGLE VIEW CHEST CLINICAL HISTORY: Empyema. FINDINGS: An AP, portable, upright chest radiograph is compared to study dated 08/26/2018 and correlate d with chest CT dated 08/24/2018. The examination is degraded by portable technique and patient rotatio n. A tracheostomy is in place. A pigtail catheter projecting over the left chest is unchanged in posi tion. The cardiomediastinal silhouette is unremarkable, noting atherosclerotic calcification of the t horacic aorta. Advanced emphysema and chronic interstitial thickening are similar to previous. Bullou s change is again noted at the apices. Consolidative change change is again seen at the left lung bas e. There are small pleural effusions, left greater than right. These findings are similar to yesterda y. No pneumothorax is clearly seen. The skeletal structures are osteopenic. The bony thorax is grossl y intact. IMPRESSION: 1. A pigtail catheter projecting over the left chest is unchanged in position. 2. Advanced emphysema. 3. Left basilar consolidation and small pleural effusions are similar to previous. Electronically signed by: Dwayne Mays M.D. 08/27/2018 7:43 AM
[2018-08-27] MEDS: POLYETHYLENE (MIRALAX) 17 GM PACK GT SCH (09:23)
[2018-08-27] MEDS: FLUTICASONE/SALMETEROL (ADVAIR) 500/50 INH 14 PUFF INH SCH ×2 (09:25→21:33)
[2018-08-27] MEDS: ERTAPENEM SODIUM 1,000 MG in SODIUM CHLORIDE 0.9% 50 ML IV SCH (09:26)
[2018-08-27] MEDS: predniSONE 10 MG TABLET GT SCH (09:27)
[2018-08-27] MEDS: OXYCODONE/ACETAMINOPHEN 5mg/325mg TAB PO PRN ×2 (09:27→21:35)
[2018-08-27] MEDS: METOPROLOL TARTRATE 50 MG TAB PO SCH ×2 (09:28→21:34)
[2018-08-27] MEDS: FAMOTIDINE 20 MG TAB JT SCH ×2 (09:28→21:34)
[2018-08-27] MEDS: ZINC SULFATE 220 MG CAPSULE GT SCH (09:28)
[2018-08-27] MEDS: MONTELUKAST SODIUM 10 MG TABLET GT SCH (09:28)
[2018-08-27] MEDS: ASPIRIN 81 MG CHEW GT SCH (11:44)
[2018-08-27] MEDS ORDERED: MoRPHine SULFATE 2 MG/ML CARP IV STA (12:57)
[2018-08-27] MEDS ORDERED: MoRPHine SULFATE 2 MG/ML CARP ONE (12:58)
--- NOTE | 2018-08-27 13:14 | XRay Report ---
XR chest 1V portable CLINICAL HISTORY: 63 years-old Male presenting with tube removal. TECHNIQUE: Portable upright AP view of the chest was obtained. COMPARISON: 08/27/2018 at 7:23 AM. FINDINGS: Interval removal of the left pleural pigtail catheter. Tracheostomy tube remains in place. Cardiomedi astinal silhouette normal. Hyperinflated lungs with persistent left mid to basilar opacity. Extensive heterogeneity of the lungs with relative radiolucency of the upper lobes. No pneumothorax. Osseous s tructures normal. IMPRESSION: 1. No pneumothorax status post removal of the left pleural pigtail catheter. 2. Emphysema. 3. Persistent left mid to basilar opacity. Electronically signed by: Wayne Rojo M.D. 08/27/2018 1:12 PM
--- NOTE | 2018-08-27 14:00 | Hospitalist Progress Note ---
Date of Service August 27, 2018 Assessment & Plan (1) Empyema of left pleural space: Suffered from pneumonia on admission likely secondary to aspiration Developed pleural effusion which came out to be secondary to empyema Appreciate thoracic surgery input and subsequent chest tube placement Still draining considerable amount Of the chest tube will be there for the next few days White count is normalized today and the drainage from the chest tube has been decreasing We will continue current treatment (2) Mucus plugging of bronchi: Status post bronchoscopy and suction He does not have significant cough reflex and cannot bring out excessive secre tions will need periodic bronchoscopy as per cue selector Repeat bronchoscopy done No significant respiratory symptoms today (3) Atrial fibrillation with rapid ventricular response: new onset atrial fibrillation with rapid ventricular response May be contributed by infection Reverted to sinus rhythm after being given Amiodarone Continue beta-kyaw to maintain direct and try to avoid amiodarone as per extrusion process operator No long-term anticoagulation -- remains in SR (4) Pneumonia involving left lung: Admitted with sepsis likely secondary to pneumonia Pneumonia involves the left middle and lower lobe s/p bronchoscopy no evidence of tracheal esophageal fistula Thoracic surgery has been consulted for possible aspiration and/or thoracic tube placement Status post left thoracotomy tube placement cultures: (+) Serratia, Strep, Bacteroides on Levaquin, transitioned to ertapenem per ID recommendation Repeat CT scan : IMPRESSION: 1. Unchanged position of the left pigtail catheter, presumably pleural. Lack of intravenous contrast limits delineation of the reported empyema. Allowing for this, no increased size or significant change in appearance. 2. Stable degree of consolidation and volume loss of the left lower lobe. 3. Significant increase peribronchovascular consolidation of the right lower lobe with new trace right pleural effusion. Extensive bronchial debris in the right lower lobe. This is concerning for aspiration or infection with a parapneumonic effusion. 4. Extensive bronchial debris in the left lower lobe. Maintained on chest tube s/p repeat Bronchosopy for significant hemoptysis: no evidence of acute bleeding alteplase and heparin discontinued -- Ertapenem IV continued x 10 day course -Continue current antibiotic (5) Acute blood loss anemia: significant hemoptysis 08/25/18 Hg dropped to 7 2 units PRBC ordered monitor H&H Hemoglobin is more 0.9 today on / (6) Biventricular heart failure: Has history of biventricular heart failure with an EF of around 20% No overt CHF at this time Restrict fluid to 1500 mL's a day Diuretics on hold (7) Sepsis: As above (8) Hyponatremia: Na 130 stable now (9) COPD exacerbation: continue Prednisone , Nebs Remains stable DVT prophylaxis Subcu heparin CODE STATUS DNR Subjective 08/26 The patient was seen and examined in telemetry unit Is a status post chest tube placement for empyema He has had bronchoscopy following the Clinically he feels better Symptomatically stable 08/27: The patient was seen and examined in telemetry unit He has been feeling a lot better Chest tube is still draining but less amount Denies any shortness of breath, cough or pain at rest Physical Exam Vital Signs (Past 24 Hours): Last Vital Signs Temp 37.0 C 08/27/18 11:30 Pulse 82 08/27/18 11:30 Resp 18 08/27/18 11:30 BP 98/59 L 08/27/18 11:30 Pulse Ox 95 08/27/18 11:30 Physical Exam: Lying in bed comfortably Constitutional: + ill appearing and + thin; no acute distress Eyes: PERRL, conjunctivae normal, anicteric sclerae ENMT: external ear and nose normal, oropharynx normal Mallampati Class: I Respiratory: normal respiratory effort Auscultation: + diminished lung sounds, + crackles and + wheezes Chest tube in situ-drainage seems to be decreasing Cardiovascular: Rate/Rhythm: + tachycardic Heart Sounds: normal S1 and normal S2 Gastrointestinal (Abdomen): Inspection/Auscultation: abdomen normal to inspection Percussion/Palpation: abdomen soft Neurologic: awake Results & Data Laboratory Results Short CBC 08/27/18 Range/Units 05:10 WBC 9.71 (4.8-10.8) K/uL Hgb 9.3 L (14.0-18.0) g/dL Hct 26.6 L (42-52) % Plt Count 181 (130-400) K/uL BMP 08/27/18 05:10 Sodium 131 L Potassium 3.8 Chloride 95 L Carbon Dioxide 30 BUN 18 Creatinine 0.17 L Glucose 97 Calcium 8.0 L Medications Administered Current Inpatient Medications Albuterol (Duoneb) 3 ml INH Q4R [facility] Stop: 09/11/18 03:59 Last Admin: 08/27/18 11:06 Dose: 3 ml Documented by: Aspirin (Aspirin Chew) 81 mg GT DAILY [facility] Stop: 09/11/18 08:59 Last Admin: 08/27/18 11:44 Dose: 81 mg Documented by: Digoxin (Lanoxin) 0.125 mg PEG DAILY@1600 [facility] Stop: 09/17/18 15:59 Last Admin: 08/26/18 17:32 Dose: 0.125 mg Documented by: Enteral Nutritional Formula (Impact 1.0 Galo) 1,000 ml PEG UD [facility]; Protocol Stop: 09/11/18 15:14 Last Admin: 08/27/18 01:00 Dose: 1,000 ml Documented by: Famotidine (Pepcid) 20 mg JT BID [facility] Stop: 09/13/18 12:25 Last Admin: 08/27/18 09:28 Dose: 20 mg Documented by: Glycopyrrolate (Robinul) 0.5 mg PO Q6H [facility] Stop: 09/14/18 13:59 Last Admin: 08/27/18 09:28 Dose: 0.5 mg Documented by: Sodium Chloride (Nss 1000ml) 1,000 mls @ 50 mls/hr IV .Q20H [facility] Stop: 09/11/18 03:19 Last Admin: 08/27/18 01:05 Dose: 50 mls/hr Documented by: Ertapenem 1,000 mg/ Sodium (Chloride) 60 mls @ 100 mls/hr IV Q24H [facility] Stop: 08/30/18 08:59 Last Infusion: 08/27/18 10:12 Dose: Infused Documented by: Alteplase, Recombinant 10 mg/ (Syringe) 60 mls @ 0 mls/hr IPL Q12H [facility]; Protocol Last Admin: 08/25/18 06:24 Dose: Not Given Documented by: Dornase Saul 5 ml/ Syringe 30 mls @ 0 mls/hr IPL Q12H [facility]; Protocol Last Admin: 08/25/18 06:24 Dose: Not Given Documented by: Lactulose (Chronulac) 30 gm GT Q6H PRN PRN Reason: until BM daily occured Stop: 09/13/18 13:59 Metoclopramide HCl (Reglan) 5 mg PEG Q6 [facility] Stop: 09/16/18 11:59 Last Admin: 08/27/18 11:44 Dose: Not Given Documented by: Metoprolol Tartrate (Lopressor) 50 mg PO BID [facility]; Protocol Stop: 09/11/18 08:59 Last Admin: 08/27/18 09:28 Dose: 50 mg Documented by: Montelukast Sodium (Singulair) 10 mg GT QAM [facility] Stop: 09/11/18 08:59 Last Admin: 08/27/18 09:28 Dose: 10 mg Documented by: Oxycodone/Acetaminophen (Percocet 5mg/325mg) 1 tab PO Q4H PRN PRN Reason: Pain Stop: 09/01/18 20:42 Last Admin: 08/27/18 09:27 Dose: 1 tab Documented by: Polyethylene Glycol (Miralax Powder Packet) 17 gm GT DAILY [facility] Stop: 09/11/18 08:59 Last Admin: 08/27/18 09:23 Dose: Not Given Documented by: Prednisone (Prednisone) 30 mg GT DAILY [facility] Stop: 09/19/18 08:59 Last Admin: 08/27/18 09:27 Dose: 30 mg Documented by: Fluticasone/Salmeterol (Advair Diskus 500/50) 1 puffs INH BID [facility] Stop: 09/11/18 08:59 Last Admin: 08/27/18 09:25 Dose: 1 puffs Documented by: Zinc Sulfate (Zinc Sulfate) 220 mg GT DAILY [facility] Stop: 09/11/18 08:59 Last Admin: 08/27/18 09:28 Dose: 220 mg Documented by: (1) Pneumonia involving left lung Lung location: lower lobe of lung Pneumonia type: due to unspecified organism Qualified Code(s): J18.1 - Lobar pneumonia, unspecified organism
[2018-08-27] MEDS: DIGOXIN 0.125 MG/2.5 ML UDP PEG SCH (16:49)
--- NOTE | 2018-08-27 19:37 | Progress Note ---
DATE: 08/27/2018 Mr. Shirley was seen today on 08/27/2018. His pigtail catheter has stopped draining. This was removed at the bedside. His x-ray has not really changed. He still has some fluid there but his white count is normal for the first time since his admission. We will see how he looks over the next few days and check another CT scan on him on Friday.
[2018-08-28] MEDS: GLYCOPYRROLATE 1 MG TAB PO SCH ×4 (00:53→20:53)
[2018-08-28] MEDS: METOCLOPRAMIDE HCL 5 MG/5 ML UDP PEG SCH ×4 (00:54→17:04)
[2018-08-28] MEDS: ALBUT/IPRATROP 3MG/0.5MG NEB 3 ML VIAL INH SCH ×6 (04:04→23:41)
[2018-08-28] MEDS: OXYCODONE/ACETAMINOPHEN 5mg/325mg TAB PO PRN (05:48)
--- NOTE | 2018-08-28 07:42 | XRay Report ---
XR chest 1V portable CLINICAL HISTORY: empyema COMPARISON STUDY: Chest radiograph August 27, 2018 at 1:06 PM. FINDINGS: Tracheostomy tube is noted. There is no pneumothorax. A small left pleural effusion is note d. Emphysema is noted. Hazy left mid and lower lung airspace opacity persists. Cardiac size is normal . Is no evidence for pulmonary edema. IMPRESSION: 1. Persistent left mid and lower lung airspace opacity with a small left pleural effusion. 2. No pneumothorax. 3. Emphysema. Electronically signed by: Patel Yee M.D. 08/28/2018 7:40 AM
[2018-08-28] MEDS: ERTAPENEM SODIUM 1,000 MG in SODIUM CHLORIDE 0.9% 50 ML IV SCH (09:37)
[2018-08-28] MEDS: FLUTICASONE/SALMETEROL (ADVAIR) 500/50 INH 14 PUFF INH SCH ×2 (09:37→21:59)
[2018-08-28] MEDS: FAMOTIDINE 20 MG TAB JT SCH ×2 (09:38→20:53)
[2018-08-28] MEDS: METOPROLOL TARTRATE 50 MG TAB PO SCH ×2 (09:38→20:51)
[2018-08-28] MEDS: predniSONE 10 MG TABLET GT SCH (09:39)
[2018-08-28] MEDS: MONTELUKAST SODIUM 10 MG TABLET GT SCH (09:39)
[2018-08-28] MEDS: ZINC SULFATE 220 MG CAPSULE GT SCH (09:39)
[2018-08-28] MEDS: ASPIRIN 81 MG CHEW GT SCH (09:42)
[2018-08-28] MEDS: POLYETHYLENE (MIRALAX) 17 GM PACK GT SCH (09:43)
[2018-08-28] MEDS: IMPACT LIQD 1.0 CAL 1,000 ML BAG PEG SCH (14:24)
--- NOTE | 2018-08-28 15:09 | Hospitalist Progress Note ---
Date of Service August 28, 2018 Assessment & Plan (1) Empyema of left pleural space: Suffered from pneumonia on admission likely secondary to aspiration Developed pleural effusion which came out to be secondary to empyema Appreciate thoracic surgery input and subsequent chest tube placement Still draining considerable amount Of the chest tube will be there for the next few days White count is normalized today and the drainage from the chest tube has been decreasing We will continue current treatment Chest tube is out last night Will have a repeat CAT scan of the chest on Friday for further decision regarding employment management [place] [facility] [place]) Mucus plugging of bronchi: Status post bronchoscopy and suction He does not have significant cough reflex and cannot bring out excessive secretions will need periodic bronchoscopy as per account resolution analyst Repeat bronchoscopy done No significant respiratory symptoms today (3) Atrial fibrillation with rapid ventricular response: new onset atrial fibrillation with rapid ventricular response May be contributed by infection Reverted to sinus rhythm after being given Amiodarone Continue beta-kyaw to maintain direct and try to avoid amiodarone as per electric tripper machine operator No long-term anticoagulation -- remains in SR (4) Pneumonia involving left lung: Admitted with sepsis likely secondary to pneumonia Pneumonia involves the left middle and lower lobe s/p bronchoscopy no evidence of tracheal esophageal fistula Thoracic surgery has been consulted for possible aspiration and/or thoracic tube placement Status post left thoracotomy tube placement cultures: (+) Serratia, Strep, Bacteroides on Levaquin, transitioned to ertapenem per ID recommendation Repeat CT scan : IMPRESSION: 1. Unchanged position of the left pigtail catheter, presumably pleural. Lack of intravenous contrast limits delineation of the reported empyema. Allowing for this, no increased size or significant change in appearance. 2. Stable degree of consolidation and volume loss of the left lower lobe. 3. Significant increase peribronchovascular consolidation of the right lower lobe with new trace right pleural effusion. Extensive bronchial debris in the right lower lobe. This is concerning for aspiration or infection with a parapneumonic effusion. 4. Extensive bronchial debris in the left lower lobe. Maintained on chest tube s/p repeat Bronchosopy for significant hemoptysis: no evidence of acute bleeding alteplase and heparin discontinued -- Ertapenem IV continued x 10 day course -Continue current antibiotic and showing clinical improvement (5) Acute blood loss anemia: significant hemoptysis 08/25/19 Hg dropped to 7 2 units PRBC ordered monitor H&H Hemoglobin is more 0.9 today on 08/27 (6) Biventricular heart failure: Has history of biventricular heart failure with an EF of around 20% No overt CHF at this time Restrict fluid to 1500 mL's a day Diuretics on hold (7) Sepsis: As above (8) Hyponatremia: Na 130 stable now (9) COPD exacerbation: continue Prednisone , Nebs Remains stable DVT prophylaxis Subcu heparin CODE STATUS DNR Subjective 08/26 The patient was seen and examined in telemetry unit Is a status post chest tube placement for empyema He has had bronchoscopy following the Clinically he feels better Symptomatically stable 08/27: The patient was seen and examined in telemetry unit He has been feeling a lot better Chest tube is still draining but less amount Denies any shortness of breath, cough or pain at rest 08/28 Patient was seen and examined in telemetry unit He has been stable for the last few days Chest tube is out since last night We will repeat CAT scan of the chest on Friday Physical Exam Vital Signs (Past 24 Hours): Last Vital Signs Temp 36.7 C 08/28/18 11:43 Pulse 75 08/28/18 11:43 Resp 18 08/28/18 11:43 BP 96/57 L 08/28/18 11:43 Pulse Ox 94 08/28/18 11:43 Physical Exam: No apparent distress at rest Constitutional: + ill appearing and + thin; no acute distress Eyes: PERRL, conjunctivae normal, anicteric sclerae ENMT: external ear and nose normal, oropharynx normal Mallampati Class: I Respiratory: normal respiratory effort Auscultation: + diminished lung sounds, + crackles and + wheezes Cardiovascular: Rate/Rhythm: + tachycardic Heart Sounds: normal S1 and normal S2 Gastrointestinal (Abdomen): Inspection/Auscultation: abdomen normal to inspection Percussion/Palpation: abdomen soft Neurologic: awake Results & Data Medications Administered Current Inpatient Medications Albuterol (Duoneb) 3 ml INH Q4R [facility] Stop: 09/11/18 03:59 Last Admin: 08/28/18 11:20 Dose: 3 ml Documented by: Aspirin (Aspirin Chew) 81 mg GT DAILY [facility] Stop: 09/11/18 08:59 Last Admin: 08/28/18 09:42 Dose: 81 mg Documented by: Digoxin (Lanoxin) 0.125 mg PEG DAILY@1600 [facility] Stop: 09/17/18 15:59 Last Admin: 08/27/18 16:49 Dose: 0.125 mg Documented by: Enteral Nutritional Formula (Impact 1.0 Galo) 1,000 ml PEG UD [facility]; Protocol Stop: 09/11/18 15:14 Last Admin: 08/28/18 14:24 Dose: 1,000 ml Documented by: Famotidine (Pepcid) 20 mg JT BID [facility] Stop: 09/13/18 12:25 Last Admin: 08/28/18 09:38 Dose: 20 mg Documented by: Glycopyrrolate (Robinul) 0.5 mg PO Q6H [facility] Stop: 09/14/18 13:59 Last Admin: 08/28/18 14:24 Dose: 0.5 mg Documented by: Sodium Chloride (Nss 1000ml) 1,000 mls @ 50 mls/hr IV .Q20H [facility] Stop: 09/11/18 03:19 Last Admin: 08/27/18 21:35 Dose: 50 mls/hr Documented by: Ertapenem 1,000 mg/ Sodium (Chloride) 60 mls @ 100 mls/hr IV Q24H [facility] Stop: 08/30/18 08:59 Last Infusion: 08/28/18 11:30 Dose: Infused Documented by: Alteplase, Recombinant 10 mg/ (Syringe) 60 mls @ 0 mls/hr IPL Q12H [facility]; Protocol Last Admin: 08/25/18 06:24 Dose: Not Given Documented by: Dornase Saul 5 ml/ Syringe 30 mls @ 0 mls/hr IPL Q12H [facility]; Protocol Last Admin: 08/25/18 06:24 Dose: Not Given Documented by: Lactulose (Chronulac) 30 gm GT Q6H PRN PRN Reason: until BM daily occured Stop: 09/13/18 13:59 Metoclopramide HCl (Reglan) 5 mg PEG Q6 [facility] Stop: 09/16/18 11:59 Last Admin: 08/28/18 11:53 Dose: 5 mg Documented by: Metoprolol Tartrate (Lopressor) 50 mg PO BID [facility]; Protocol Stop: 09/11/18 08:59 Last Admin: 08/28/18 09:38 Dose: 50 mg Documented by: Montelukast Sodium (Singulair) 10 mg GT QAM [facility] Stop: 09/11/18 08:59 Last Admin: 08/28/18 09:39 Dose: 10 mg Documented by: Oxycodone/Acetaminophen (Percocet 5mg/325mg) 1 tab PO Q4H PRN PRN Reason: Pain Stop: 09/01/18 20:42 Last Admin: 08/28/18 05:48 Dose: 1 tab Documented by: Polyethylene Glycol (Miralax Powder Packet) 17 gm GT DAILY [facility] Stop: 09/11/18 08:59 Last Admin: 08/28/18 09:43 Dose: Not Given Documented by: Prednisone (Prednisone) 30 mg GT DAILY [facility] Stop: 09/19/18 08:59 Last Admin: 08/28/18 09:39 Dose: 30 mg Documented by: Fluticasone/Salmeterol (Advair Diskus 500/50) 1 puffs INH BID [facility] Stop: 09/11/18 08:59 Last Admin: 08/28/18 09:37 Dose: 1 puffs Documented by: Zinc Sulfate (Zinc Sulfate) 220 mg GT DAILY [facility] Stop: 09/11/18 08:59 Last Admin: 08/28/18 09:39 Dose: 220 mg Documented by: (1) Pneumonia involving left lung Lung location: lower lobe of lung Pneumonia type: due to unspecified organism Qualified Code(s): J18.1 - Lobar pneumonia, unspecified organism
[2018-08-28] MEDS: DIGOXIN 0.125 MG/2.5 ML UDP PEG SCH (17:04)
[2018-08-28] MEDS: SODIUM CHLORIDE 0.9% 1000ML 1,000 ML IV SCH (17:04)
--- NOTE | 2018-08-28 23:04 | Progress Note ---
DATE: 08/28/2018 Mr. Shirley was seen today. His tube has been out since yesterday. His x-ray is about the same. He has had no fevers. PHYSICAL EXAMINATION: His temperature is 36.7 today. He is still coughing up quite a bit of sputum. I did not think his x-ray looked appreciably different. At this point, I would like to continue the antibiotics and repeat a CT scan next week. Mr. Shirley is in a difficult situation. He is not an operative candidate whatsoever. If he does not respond, we may end up having to put a chest tube in place into this apparent abscess. I would only do this if he forced by having ongoing signs of infection.
[2018-08-29] MEDS: GLYCOPYRROLATE 1 MG TAB PO SCH ×4 (01:19→21:32)
[2018-08-29] MEDS: METOCLOPRAMIDE HCL 5 MG/5 ML UDP PEG SCH ×4 (01:21→18:36)
[2018-08-29] MEDS: ALBUT/IPRATROP 3MG/0.5MG NEB 3 ML VIAL INH SCH ×6 (03:56→23:32)
[2018-08-29] MEDS: IMPACT LIQD 1.0 CAL 1,000 ML BAG PEG SCH ×2 (05:40→22:39)
[2018-08-29] MEDS: METOPROLOL TARTRATE 50 MG TAB PO SCH ×2 (08:36→21:32)
[2018-08-29] MEDS: ERTAPENEM SODIUM 1,000 MG in SODIUM CHLORIDE 0.9% 50 ML IV SCH (08:40)
[2018-08-29] MEDS: predniSONE 10 MG TABLET GT SCH (08:41)
[2018-08-29] MEDS: POLYETHYLENE (MIRALAX) 17 GM PACK GT SCH (08:41)
[2018-08-29] MEDS: ZINC SULFATE 220 MG CAPSULE GT SCH (08:41)
[2018-08-29] MEDS: FAMOTIDINE 20 MG TAB JT SCH ×2 (08:41→21:32)
[2018-08-29] MEDS: MONTELUKAST SODIUM 10 MG TABLET GT SCH (08:41)
[2018-08-29] MEDS: ASPIRIN 81 MG CHEW GT SCH (08:41)
[2018-08-29] MEDS: FLUTICASONE/SALMETEROL (ADVAIR) 500/50 INH 14 PUFF INH SCH ×2 (10:44→21:30)
--- NOTE | 2018-08-29 12:08 | Progress Note ---
DATE: 08/29/2018 Casper was seen today. He is afebrile. He is still coughing up mucus from his sputum. Vital signs are stable. His saturations have been stable. He has his trach collar in place. We are going to check a CT scan on him in the early part of the week. Unless he forces our hand, I think we may end up not draining this fluid. I would continue the antibiotics for the time being.
--- NOTE | 2018-08-29 12:49 | Hospitalist Progress Note ---
Date of Service August 29, 2018 Assessment & Plan (1) Empyema of left pleural space: Suffered from pneumonia on admission likely secondary to aspiration Developed pleural effusion which came out to be secondary to empyema Appreciate thoracic surgery input and subsequent chest tube placement Still draining considerable amount Of the chest tube will be there for the next few days White count is normalized today and the drainage from the chest tube has been decreasing We will continue current treatment Chest tube is out last night Will have a repeat CAT scan of the chest on Friday for further decision regarding employment management Likely the patient will be going to [facility] CT scan on Friday and management plan following the (2) Mucus plugging of bronchi: Status post bronchoscopy and suction He does not have significant cough reflex and cannot bring out excessive secretions will need periodic bronchoscopy as per system support developer Repeat bronchoscopy done No significant respiratory symptoms today No more blocking of the bronchioles secondary to excessive secretions (3) Atrial fibrillation with rapid ventricular response: new onset atrial fibrillation with rapid ventricular response May be contributed by infection Reverted to sinus rhythm after being given Amiodarone Continue beta-kyaw to maintain direct and try to avoid amiodarone as per branch billing payroll clerk No long-term anticoagulation -- remains in SR (4) Pneumonia involving left lung: Admitted with sepsis likely secondary to pneumonia Pneumonia involves the left middle and lower lobe s/p bronchoscopy no evidence of tracheal esophageal fistula Thoracic surgery has been consulted for possible aspiration and/or thoracic tube placement Status post left thoracotomy tube placement cultures: (+) Serratia, Strep, Bacteroides on Levaquin, transitioned to ertapenem per ID recommendation Repeat CT scan : IMPRESSION: 1. Unchanged position of the left pigtail catheter, presumably pleural. Lack of intravenous contrast limits delineation of the reported empyema. Allowing for this, no increased size or significant change in appearance. 2. Stable degree of consolidation and volume loss of the left lower lobe. 3. Significant increase peribronchovascular consolidation of the right lower lobe with new trace right pleural effusion. Extensive bronchial debris in the right lower lobe. This is concerning for aspiration or infection with a parapneumonic effusion. 4. Extensive bronchial debris in the left lower lobe. Maintained on chest tube s/p repeat Bronchosopy for significant hemoptysis: no evidence of acute bleeding alteplase and heparin discontinued -- Ertapenem IV continued x 10 day course -Continue current antibiotic and showing clinical improvement (5) Acute blood loss anemia: significant hemoptysis 08/25/18 Hg dropped to 7 2 units PRBC ordered monitor H&H Hemoglobin is more 0.9 today on 08/27 (6) Biventricular heart failure: Has history of biventricular heart failure with an EF of around 20% No overt CHF at this time Restrict fluid to 1500 mL's a day Diuretics on hold (7) Sepsis: As above (8) Hyponatremia: Na 130 stable now (9) COPD exacerbation: continue Prednisone , Nebs Remains stable DVT prophylaxis Subcu heparin CODE STATUS DNR Subjective 08/26 The patient was seen and examined in telemetry unit Is a status post chest tube placement for empyema He has had bronchoscopy following the Clinically he feels better Symptomatically stable 08/27: The patient was seen and examined in telemetry unit He has been feeling a lot better Chest tube is still draining but less amount Denies any shortness of breath, cough or pain at rest 08/28 Patient was seen and examined in telemetry unit He has been stable for the last few days Chest tube is out since last night We will repeat CAT scan of the chest on Tuesday 08/29 Remains stable without any symptoms Denies any more cough and/or shortness of breath at rest No chest pain since chest tube has been out Physical Exam Vital Signs (Past 24 Hours): Last Vital Signs Temp 36.5 C 08/29/18 11:12 Pulse 97 H 08/29/18 11:12 Resp 17 08/29/18 11:12 BP 100/70 08/29/18 11:12 Pulse Ox 93 08/29/18 11:12 Physical Exam: No apparent distress at rest Constitutional: + ill appearing and + thin; no acute distress Eyes: PERRL, conjunctivae normal, anicteric sclerae ENMT: external ear and nose normal, oropharynx normal Mallampati Class: I Respiratory: normal respiratory effort Auscultation: + diminished lung sounds, + crackles and + wheezes Cardiovascular: Rate/Rhythm: + tachycardic Heart Sounds: normal S1 and normal S2 Gastrointestinal (Abdomen): Inspection/Auscultation: abdomen normal to inspection Percussion/Palpation: abdomen soft Neurologic: awake Results & Data Medications Administered Current Inpatient Medications Albuterol (Duoneb) 3 ml INH Q4R [facility] Stop: 09/11/18 03:59 Last Admin: 08/29/18 10:59 Dose: 3 ml Documented by: Aspirin (Aspirin Chew) 81 mg GT DAILY [facility] Stop: 09/11/18 08:59 Last Admin: 08/29/18 08:41 Dose: 81 mg Documented by: Digoxin (Lanoxin) 0.125 mg PEG DAILY@1600 [facility] Stop: 09/17/18 15:59 Last Admin: 08/28/18 17:04 Dose: 0.125 mg Documented by: Enteral Nutritional Formula (Impact 1.0 Galo) 1,000 ml PEG UD [facility]; Protocol Stop: 09/11/18 15:14 Last Admin: 08/29/18 05:40 Dose: 1,000 ml Documented by: Famotidine (Pepcid) 20 mg JT BID [facility] Stop: 09/13/18 12:25 Last Admin: 08/29/18 08:41 Dose: 20 mg Documented by: Glycopyrrolate (Robinul) 0.5 mg PO Q6H [facility] Stop: 09/14/18 13:59 Last Admin: 08/29/18 08:40 Dose: 0.5 mg Documented by: Sodium Chloride (Nss 1000ml) 1,000 mls @ 50 mls/hr IV .Q20H [facility] Stop: 09/11/18 03:19 Last Admin: 08/28/18 17:04 Dose: 50 mls/hr Documented by: Ertapenem 1,000 mg/ Sodium (Chloride) 60 mls @ 100 mls/hr IV Q24H [facility] Stop: 08/30/18 08:59 Last Infusion: 08/29/18 09:46 Dose: Infused Documented by: Alteplase, Recombinant 10 mg/ (Syringe) 60 mls @ 0 mls/hr IPL Q12H [facility]; Protocol Last Admin: 08/25/18 06:24 Dose: Not Given Documented by: Dornase Saul 5 ml/ Syringe 30 mls @ 0 mls/hr IPL Q12H [facility]; Protocol Last Admin: 08/25/18 06:24 Dose: Not Given Documented by: Lactulose (Chronulac) 30 gm GT Q6H PRN PRN Reason: until BM daily occured Stop: 09/13/18 13:59 Metoclopramide HCl (Reglan) 5 mg PEG Q6 [facility] Stop: 09/16/18 11:59 Last Admin: 08/29/18 05:42 Dose: 5 mg Documented by: Metoprolol Tartrate (Lopressor) 50 mg PO BID [facility]; Protocol Stop: 09/11/18 08:59 Last Admin: 08/29/18 08:36 Dose: Not Given Documented by: Montelukast Sodium (Singulair) 10 mg GT QAM [facility] Stop: 09/11/18 08:59 Last Admin: 08/29/18 08:41 Dose: 10 mg Documented by: Oxycodone/Acetaminophen (Percocet 5mg/325mg) 1 tab PO Q4H PRN PRN Reason: Pain Stop: 09/01/18 20:42 Last Admin: 08/28/18 05:48 Dose: 1 tab Documented by: Polyethylene Glycol (Miralax Powder Packet) 17 gm GT DAILY [facility] Stop: 09/11/18 08:59 Last Admin: 08/29/18 08:41 Dose: 17 gm Documented by: Prednisone (Prednisone) 30 mg GT DAILY [facility] Stop: 09/19/18 08:59 Last Admin: 08/29/18 08:41 Dose: 30 mg Documented by: Fluticasone/Salmeterol (Advair Diskus 500/50) 1 puffs INH BID [facility] Stop: 09/11/18 08:59 Last Admin: 08/29/18 10:44 Dose: 1 puffs Documented by: Zinc Sulfate (Zinc Sulfate) 220 mg GT DAILY [facility] Stop: 09/11/18 08:59 Last Admin: 08/29/18 08:41 Dose: 220 mg Documented by: (1) Pneumonia involving left lung Lung location: lower lobe of lung Pneumonia type: due to unspecified organism Qualified Code(s): J18.1 - Lobar pneumonia, unspecified organism
[2018-08-29] MEDS: SODIUM CHLORIDE 0.9% 1000ML 1,000 ML IV SCH (13:23)
[2018-08-29] MEDS: DIGOXIN 0.125 MG/2.5 ML UDP PEG SCH (16:29)
[2018-08-30] MEDS: GLYCOPYRROLATE 1 MG TAB PO SCH ×5 (01:00→23:25)
[2018-08-30] MEDS: METOCLOPRAMIDE HCL 5 MG/5 ML UDP PEG SCH ×5 (01:00→23:24)
[2018-08-30] MEDS: ALBUT/IPRATROP 3MG/0.5MG NEB 3 ML VIAL INH SCH ×6 (03:02→23:39)
[2018-08-30 06:08] LABS: Eosinophils # (auto) 0.08 K/uL (0-0.5); Eosinophils % (auto) 0.9 %; Hematocrit (blood only) 28.1 % (42-52); Hemoglobin 9.5 g/dL (14.0-18.0); Immature Granulocytes # (auto) 0.23 K/uL (0.00-0.02); Immature Granulocytes % (auto) 2.6 %; Lymphocytes # (auto) 0.98 K/uL (1.2-3.4); Lymphocytes % (auto) 11.2 %; Mean Corpuscular Hgb Conc 33.8 g/dL (32-36); Mean Corpuscular Volume 90.9 fL (80-100); Mean Platelet Volume 8.3 fL (7.4-10.4); Monocytes # (auto) 0.56 K/uL (0.11-0.59); Monocytes % (auto) 6.4 %; Neutrophils # (auto) 6.87 K/uL (1.4-6.5); Neutrophils % (auto) 78.9 %; Platelet Count 144 K/uL (130-400); RDW Coefficient of Variation 17.2 % (11.5-14.5); RDW Standard Deviation 56.4 fL (36.4-46.3); Red Blood Count 3.09 M/uL (4.7-6.1); White Blood Count 8.72 K/uL (4.8-10.8)
[2018-08-30 06:27] LABS: Blood Urea Nitrogen 15 mg/dl (7-18); Carbon Dioxide 32 mmol/L (21-32); Chloride 96 mmol/L (98-107); Est GFR (African American) > 150.0; Est GFR (Non-African American) > 150.0; Potassium 3.8 mmol/L (3.5-5.1); Sodium 133 mmol/L (136-145)
[2018-08-30 06:28] LABS: BUN Creatinine Ratio 71.3 (10-20); Calcium 8.2 mg/dl (8.5-10.1); Creatinine Clr Calc Pharmacy 449.7 ml/min; Glucose 95 mg/dl (70-99); Magnesium 1.8 mg/dl (1.8-2.4); Phosphorus 2.6 mg/dl (2.5-4.9)
[2018-08-30] MEDS: POLYETHYLENE (MIRALAX) 17 GM PACK GT SCH (08:16)
[2018-08-30] MEDS: FLUTICASONE/SALMETEROL (ADVAIR) 500/50 INH 14 PUFF INH SCH ×2 (08:17→20:24)
[2018-08-30] MEDS: FAMOTIDINE 20 MG TAB JT SCH ×2 (08:17→20:25)
[2018-08-30] MEDS: METOPROLOL TARTRATE 50 MG TAB PO SCH ×2 (08:17→20:23)
[2018-08-30] MEDS: ASPIRIN 81 MG CHEW GT SCH (08:17)
[2018-08-30] MEDS: MONTELUKAST SODIUM 10 MG TABLET GT SCH (08:18)
[2018-08-30] MEDS: predniSONE 10 MG TABLET GT SCH (08:18)
[2018-08-30] MEDS: SODIUM CHLORIDE 0.9% 1000ML 1,000 ML IV SCH (08:18)
[2018-08-30] MEDS: ZINC SULFATE 220 MG CAPSULE GT SCH (08:18)
--- NOTE | 2018-08-30 11:27 | Hospitalist Progress Note ---
Date of Service August 30, 2018 Assessment & Plan (1) Empyema of left pleural space: Suffered from pneumonia on admission likely secondary to aspiration Developed pleural effusion which came out to be secondary to empyema Appreciate thoracic surgery input and subsequent chest tube placement Still draining considerable amount Of the chest tube will be there for the next few days White count is normalized today and the drainage from the chest tube has been decreasing We will continue current treatment Chest tube is out last night Will have a repeat CAT scan of the chest on Friday for further decision regarding employment management Likely the patient will be going to [facility] scan on Friday and management plan following the Clinically a lot better No fever and/or chills no white count have been normal Will have CT scan of the chest tomorrow (2) Mucus plugging of bronchi: Status post bronchoscopy and suction He does not have significant cough reflex and cannot bring out excessive secretions will need periodic bronchoscopy as per electronic sales and service technician Repeat bronchoscopy done No significant respiratory symptoms today No more blocking of the bronchioles secondary to excessive secretions (3) Atrial fibrillation with rapid ventricular response: new onset atrial fibrillation with rapid ventricular response May be contributed by infection Reverted to sinus rhythm after being given Amiodarone Continue beta-kyaw to maintain direct and try to avoid amiodarone as per passenger service supervisor No long-term anticoagulation -- remains in SR Denies any cardiac symptoms (4) Pneumonia involving left lung: Admitted with sepsis likely secondary to pneumonia Pneumonia involves the left middle and lower lobe s/p bronchoscopy no evidence of tracheal esophageal fistula Thoracic surgery has been consulted for possible aspiration and/or thoracic tube placement Status post left thoracotomy tube placement cultures: (+) Serratia, Strep, Bacteroides on Levaquin, transitioned to ertapenem per ID recommendation Repeat CT scan : IMPRESSION: 1. Unchanged position of the left pigtail catheter, presumably pleural. Lack of intravenous contrast limits delineation of the reported empyema. Allowing for this, no increased size or significant change in appearance. 2. Stable degree of consolidation and volume loss of the left lower lobe. 3. Significant increase peribronchovascular consolidation of the right lower lobe with new trace right pleural effusion. Extensive bronchial debris in the right lower lobe. This is concerning for aspiration or infection with a parapneumonic effusion. 4. Extensive bronchial debris in the left lower lobe. Maintained on chest tube s/p repeat Bronchosopy for significant hemoptysis: no evidence of acute bleeding alteplase and heparin discontinued -- Ertapenem IV continued x 10 day course -Continue current antibiotic and showing clinical improvement -Antibiotics as per memory (5) Acute blood loss anemia: significant hemoptysis 08/25/18 Hg dropped to 7 Received 2 units PRBC Hemoglobin is 9.4 on 08/30 (6) Biventricular heart failure: Has history of biventricular heart failure with an EF of around 20% No overt CHF at this time Restrict fluid to 1500 mL's a day Diuretics on hold (7) Sepsis: As above (8) Hyponatremia: Na 130 stable now (9) COPD exacerbation: continue Prednisone , Nebs Remains stable DVT prophylaxis Subcu heparin CODE STATUS DNR CT scan of the chest tomorrow and further management following that Likely be transferred to skilled care facility in a day or 2 Subjective 08/26 The patient was seen and examined in telemetry unit Is a status post chest tube placement for empyema He has had bronchoscopy following the Clinically he feels better Symptomatically stable 08/27: The patient was seen and examined in telemetry unit He has been feeling a lot better Chest tube is still draining but less amount Denies any shortness of breath, cough or pain at rest 08/28 Patient was seen and examined in telemetry unit He has been stable for the last few days Chest tube is out since last night We will repeat CAT scan of the chest on Tuesday 08/29 Remains stable without any symptoms Denies any more cough and/or shortness of breath at rest No chest pain since chest tube has been out 08/30 Has been feeling a lot better for the last few days Denies any symptoms No fever and and/or chills and white count have been normal Physical Exam Vital Signs (Past 24 Hours): Last Vital Signs Temp 36.5 C 08/30/18 07:29 Pulse 79 08/30/18 07:44 Resp 18 08/30/18 07:44 BP 107/65 08/30/18 07:29 Pulse Ox 91 08/30/18 07:44 Physical Exam: No apparent distress at rest Constitutional: + ill appearing and + thin; no acute distress Eyes: PERRL, conjunctivae normal, anicteric sclerae ENMT: external ear and nose normal, oropharynx normal Mallampati Class: I Respiratory: normal respiratory effort Auscultation: + diminished lung sounds, + crackles and + wheezes Cardiovascular: Rate/Rhythm: + tachycardic Heart Sounds: normal S1 and normal S2 Gastrointestinal (Abdomen): Inspection/Auscultation: abdomen normal to inspection Percussion/Palpation: abdomen soft Neurologic: awake Results & Data Laboratory Results Short CBC 08/30/18 Range/Units 05:45 WBC 8.72 (4.8-10.8) K/uL Hgb 9.5 L (14.0-18.0) g/dL Hct 28.1 L (42-52) % Plt Count 144 (130-400) K/uL BMP 08/30/18 05:45 Sodium 133 L Potassium 3.8 Chloride 96 L Carbon Dioxide 32 BUN 15 Creatinine 0.22 L Glucose 95 Calcium 8.2 L Medications Administered Current Inpatient Medications Albuterol (Duoneb) 3 ml INH Q4R ISENNA Stop: 09/11/18 03:59 Last Admin: 08/30/18 07:44 Dose: 3 ml Documented by: Aspirin (Aspirin Chew) 81 mg GT DAILY SIENNA Stop: 09/11/18 08:59 Last Admin: 08/30/18 08:17 Dose: 81 mg Documented by: Digoxin (Lanoxin) 0.125 mg PEG DAILY@1600 [facility] Stop: 09/17/18 15:59 Last Admin: 08/29/18 16:29 Dose: 0.125 mg Documented by: Enteral Nutritional Formula (Impact 1.0 Galo) 1,000 ml PEG UD [facility]; Protocol Stop: 09/11/18 15:14 Last Admin: 08/29/18 22:39 Dose: 1,000 ml Documented by: Famotidine (Pepcid) 20 mg JT BID [facility] Stop: 09/13/18 12:25 Last Admin: 08/30/18 08:17 Dose: 20 mg Documented by: Glycopyrrolate (Robinul) 0.5 mg PO Q6H SIENNA Stop: 09/14/18 13:59 Last Admin: 08/30/18 08:17 Dose: 0.5 mg Documented by: Sodium Chloride (Nss 1000ml) 1,000 mls @ 50 mls/hr IV .Q20H SIENNA Stop: 09/11/18 03:19 Last Admin: 08/30/18 08:18 Dose: 50 mls/hr Documented by: Alteplase, Recombinant 10 mg/ (Syringe) 60 mls @ 0 mls/hr IPL Q12H [facility]; Protocol Last Admin: 08/25/18 06:24 Dose: Not Given Documented by: Dornase Saul 5 ml/ Syringe 30 mls @ 0 mls/hr IPL Q12H [facility]; Protocol Last Admin: 08/25/18 06:24 Dose: Not Given Documented by: Lactulose (Chronulac) 30 gm GT Q6H PRN PRN Reason: until BM daily occured Stop: 09/13/18 13:59 Metoclopramide HCl (Reglan) 5 mg PEG Q6 SIENNA Stop: 09/16/18 11:59 Last Admin: 08/30/18 05:46 Dose: 5 mg Documented by: Metoprolol Tartrate (Lopressor) 50 mg PO BID [facility]; Protocol Stop: 09/11/18 08:59 Last Admin: 08/30/18 08:17 Dose: 50 mg Documented by: Montelukast Sodium (Singulair) 10 mg GT QAM [facility] Stop: 09/11/18 08:59 Last Admin: 08/30/18 08:18 Dose: 10 mg Documented by: Oxycodone/Acetaminophen (Percocet 5mg/325mg) 1 tab PO Q4H PRN PRN Reason: Pain Stop: 09/01/18 20:42 Last Admin: 08/28/18 05:48 Dose: 1 tab Documented by: Polyethylene Glycol (Miralax Powder Packet) 17 gm GT DAILY [facility] Stop: 09/11/18 08:59 Last Admin: 08/30/18 08:16 Dose: Not Given Documented by: Prednisone (Prednisone) 30 mg GT DAILY [facility] Stop: 09/19/18 08:59 Last Admin: 08/30/18 08:18 Dose: 30 mg Documented by: Fluticasone/Salmeterol (Advair Diskus 500/50) 1 puffs INH BID [facility] Stop: 09/11/18 08:59 Last Admin: 08/30/18 08:17 Dose: 1 puffs Documented by: Zinc Sulfate (Zinc Sulfate) 220 mg GT DAILY [facility] Stop: 09/11/18 08:59 Last Admin: 08/30/18 08:18 Dose: 220 mg Documented by: (1) Pneumonia involving left lung Lung location: lower lobe of lung Pneumonia type: due to unspecified organism Qualified Code(s): J18.1 - Lobar pneumonia, unspecified organism
--- NOTE | 2018-08-30 14:20 | Progress Note ---
DATE: 08/30/2018 Mr. Shirley was seen today on 08/30/2018. He looks very good today. His white count is down to 8720, hemoglobin stable at 9.5. His sodium is up to 133. BUN and creatinine are 15 and 0.22, respectively. He is on 6 liters with trach collar at night with saturations in the 90s. He does have some rhonchi especially on the left. Overall, I think Mr. Shirley continues to improve. We are going to check another CAT scan without contrast in the morning to assess his left pleural process.
[2018-08-30] MEDS: DIGOXIN 0.125 MG/2.5 ML UDP PEG SCH (16:10)
[2018-08-30] MEDS: IMPACT LIQD 1.0 CAL 1,000 ML BAG PEG SCH (16:25)
[2018-08-31] MEDS: SODIUM CHLORIDE 0.9% 1000ML 1,000 ML IV SCH (02:59)
[2018-08-31] MEDS: ALBUT/IPRATROP 3MG/0.5MG NEB 3 ML VIAL INH SCH ×6 (03:30→22:48)
[2018-08-31] MEDS: METOCLOPRAMIDE HCL 5 MG/5 ML UDP PEG SCH ×3 (05:37→18:40)
[2018-08-31] MEDS: POLYETHYLENE (MIRALAX) 17 GM PACK GT SCH (08:23)
[2018-08-31] MEDS: FAMOTIDINE 20 MG TAB JT SCH ×2 (08:24→20:19)
[2018-08-31] MEDS: METOPROLOL TARTRATE 50 MG TAB PO SCH ×2 (08:24→20:21)
[2018-08-31] MEDS: FLUTICASONE/SALMETEROL (ADVAIR) 500/50 INH 14 PUFF INH SCH ×2 (08:24→20:19)
[2018-08-31] MEDS: ASPIRIN 81 MG CHEW GT SCH (08:24)
[2018-08-31] MEDS: MONTELUKAST SODIUM 10 MG TABLET GT SCH (08:24)
[2018-08-31] MEDS: ZINC SULFATE 220 MG CAPSULE GT SCH (08:24)
[2018-08-31] MEDS: predniSONE 10 MG TABLET GT SCH (08:24)
[2018-08-31] MEDS: GLYCOPYRROLATE 1 MG TAB PO SCH ×3 (08:24→20:19)
[2018-08-31] MEDS: IMPACT LIQD 1.0 CAL 1,000 ML BAG PEG SCH (08:28)
--- NOTE | 2018-08-31 08:38 | Hospitalist Progress Note ---
Date of Service August 31, 2018 Assessment & Plan (1) Empyema of left pleural space: Suffered from pneumonia on admission likely secondary to aspiration afebrile leukocytosis resolved repeat CT chest ordered today continue Ertapenem IV Day 8 (2) Mucus plugging of bronchi: Status post bronchoscopy and suction He does not have significant cough reflex and cannot bring out excessive secretions will need periodic bronchoscopy as per chairman and ceo Repeat bronchoscopy done -- respiratory status stable (3) Atrial fibrillation with rapid ventricular response: new onset atrial fibrillation with rapid ventricular response May be contributed by infection Reverted to sinus rhythm after being given Amiodarone Continue beta-kyaw to maintain direct and try to avoid amiodarone as per biofuels plant superintendent No long-term anticoagulation --in sinus rhythm (4) Pneumonia involving left lung: Admitted with sepsis likely secondary to pneumonia Pneumonia involves the left middle and lower lobe s/p bronchoscopy no evidence of tracheal esophageal fistula Thoracic surgery has been consulted for possible aspiration and/or thoracic tube placement Status post left thoracotomy tube placement cultures: (+) Serratia, Strep, Bacteroides on Levaquin, transitioned to ertapenem per ID recommendation Repeat CT scan : IMPRESSION: 1. Unchanged position of the left pigtail catheter, presumably pleural. Lack of intravenous contrast limits delineation of the reported empyema. Allowing for this, no increased size or significant change in appearance. 2. Stable degree of consolidation and volume loss of the left lower lobe. 3. Significant increase peribronchovascular consolidation of the right lower lobe with new trace right pleural effusion. Extensive bronchial debris in the right lower lobe. This is concerning for aspiration or infection with a parapneumonic effusion. 4. Extensive bronchial debris in the left lower lobe. s/p repeat Bronchosopy for significant hemoptysis: no evidence of acute bleeding alteplase and heparin discontinued -- chest tube removed -- Ertapenem IV Day 01/02 (5) Acute blood loss anemia: significant hemoptysis 08/25/18 Hg dropped to 7 Received 2 units PRBC Hemoglobin is 9.4 on 08/30 (6) Biventricular heart failure: Has history of biventricular heart failure with an EF of around 20% No overt CHF at this time Restrict fluid to 1500 mL's a day Diuretics on hold (7) Sepsis: As above (8) Hyponatremia: Na 133 stable now (9) COPD exacerbation: continue Prednisone , Nebs Remains stable DVT prophylaxis Subcu heparin CODE STATUS DNR Subjective ff up empyema seen resting in bed comfortable not in distress denies chest pain, shortness of breath no abdominal pain, nausea no other symptoms Physical Exam Vital Signs (Past 24 Hours): Last Vital Signs Temp 36.6 C 08/31/18 08:26 Pulse 89 08/31/18 08:26 Resp 20 08/31/18 08:26 BP 103/60 08/31/18 08:26 Pulse Ox 98 08/31/18 08:26 Physical Exam: General- oriented x 3, not in distress, speaks in sentences with no effort or accessory muscle use Eyes- anicteric Neck- no JVD Lungs- (+) rhonchi b/l bases, moderate Heart- normal rate, regular rhythm; no murmurs Abdomen- normal bowel sounds, nondistended, soft, nontender PEG tube in place: no discharge/bleeding Extremities- no pretibial edema, no calf tenderness Neuro- alert, oriented x 3; no gross focal neurologic deficits Skin- warm & dry (1) Pneumonia involving left lung Lung location: lower lobe of lung Pneumonia type: due to unspecified organism Qualified Code(s): J18.1 - Lobar pneumonia, unspecified organism
[2018-08-31] MEDS: ERTAPENEM SODIUM 1,000 MG in SODIUM CHLORIDE 0.9% 50 ML IV SCH (12:56)
--- NOTE | 2018-08-31 15:59 | Surgery Progress Note ---
Date of Service August 31, 2018 Assessment & Plan (1) Empyema of left pleural space: -pt had previously at IR drainage and MIST protocol implemented -plan to repeat CT scan of chest today to reassess fluid Subjective Pt. denies SOB. Physical Exam Vital Signs (Past 24 Hours): Last Vital Signs Temp 36.8 C 08/31/18 15:00 Pulse 81 08/31/18 15:51 Resp 18 08/31/18 15:51 BP 100/62 08/31/18 15:00 Pulse Ox 95 08/31/18 15:51 Respiratory: no respiratory distress and no labored breathing decrease of BS noted at bases
[2018-08-31] MEDS: DIGOXIN 0.125 MG/2.5 ML UDP PEG SCH (16:18)
--- NOTE | 2018-08-31 17:15 | CT Scan Report ---
CT SCAN OF THE CHEST WITHOUT IV CONTRAST CLINICAL HISTORY: Status post chest tube removal. COMPARISON STUDY: Chest x-ray dated 08/28/2018. Chest CT scans dated 08/24/2018 and 12/28/2016. TECHNIQUE: CT scan of the thorax was performed from the thoracic inlet to the upper abdomen. Images are reviewed in the axial, sagittal, and coronal planes. IV contrast was not administered for this ex amination as per the referring clinician. Note that the examination is suboptimal without IV contrast . A dose lowering technique was utilized adhering to the principles of ALARA. The examination is deg raded by motion artifact, as was by streak artifact from the arms which could not be elevated above t he chest. CT DOSE: 198.15 mGycm FINDINGS: Thyroid: Imaged portions of the thyroid gland are normal in size and attenuation. Thoracic aorta: There is atherosclerotic calcification of the thoracic aorta, which is normal in darshan timothy and demonstrates standard 3-vessel arch anatomy. Heart: The heart is normal in size and without pericardial effusion. The coronary arteries are densel y calcified. Lungs and pleural spaces: A tracheostomy is in place. Advanced emphysematous change is noted. There a re trace pleural effusions. Dense airspace consolidation is seen at the left lung base. Patchy airspa ce consolidation is seen at the right lung base. No pneumothorax is identified. Numerous foci of pare nchymal scarring are seen bilaterally. Secretions fill the left lower lobe bronchus. The trachea and central airways are clear. Mediastinum: There are numerous subcentimeter mediastinal lymph nodes. Aracelis: Not well assessed without IV contrast. Axillae: There is no axillary lymphadenopathy. Upper abdomen: Partially visualized upper abdominal viscera is grossly unremarkable. Skeletal structures: The skeletal structures are osteopenic. No lytic or blastic bony lesions are see n. Soft tissues: The patient is cachectic. IMPRESSION: 1. There is dense airspace consolidation at the left lung base. 2. Patchy airspace consolidation is seen at the right lung base. 3. There are trace pleural effusions. 4. Advanced emphysema. 5. Secretions fill the left lower lobe airway. 6. Additional findings as above. Electronically signed by: Dwayne Mays M.D. 08/31/2018 5:14 PM
--- NOTE | 2018-08-31 19:22 | Progress Note ---
DATE: 08/31/2018 Mr. Shirley was seen today. I have reviewed the CT scan done today and I am not quite in agreement with radiology. I do not think this is parenchymal. I think this is all pleural; however, from that standpoint his white count is normal. He has been afebrile. His hemoglobin is coming up. He is quite ill, but at this point I would not propose doing anything more invasive. I would not drain this fluid in his chest. He is not a candidate for surgery. I do not want to put a chest tube in him at this point. We will follow along with him. If he forces our hand by an infectious presentation, then we will proceed with a drainage procedure of some type. However, he is not a candidate for a decortication. He may be a candidate for an Eloesser flap.
[2018-09-01] MEDS: METOCLOPRAMIDE HCL 5 MG/5 ML UDP PEG SCH ×4 (00:07→17:36)
[2018-09-01] MEDS: SODIUM CHLORIDE 0.9% 1000ML 1,000 ML IV SCH (00:23)
[2018-09-01] MEDS: IMPACT LIQD 1.0 CAL 1,000 ML BAG PEG SCH ×2 (01:26→17:35)
[2018-09-01] MEDS: GLYCOPYRROLATE 1 MG TAB PO SCH ×4 (01:38→20:17)
[2018-09-01] MEDS: ALBUT/IPRATROP 3MG/0.5MG NEB 3 ML VIAL INH SCH ×6 (03:13→23:01)
[2018-09-01] MEDS ORDERED: ACETAMINOPHEN 65 ML IV PRN (05:30)
[2018-09-01] MEDS: FLUTICASONE/SALMETEROL (ADVAIR) 500/50 INH 14 PUFF INH SCH ×2 (08:23→20:16)
[2018-09-01] MEDS: MONTELUKAST SODIUM 10 MG TABLET GT SCH (08:24)
[2018-09-01] MEDS: METOPROLOL TARTRATE 50 MG TAB PO SCH ×2 (08:24→20:16)
[2018-09-01] MEDS: ZINC SULFATE 220 MG CAPSULE GT SCH (08:24)
[2018-09-01] MEDS: FAMOTIDINE 20 MG TAB JT SCH ×2 (08:24→20:17)
[2018-09-01] MEDS: predniSONE 10 MG TABLET GT SCH (08:24)
[2018-09-01] MEDS: POLYETHYLENE (MIRALAX) 17 GM PACK GT SCH (08:24)
[2018-09-01] MEDS: ASPIRIN 81 MG CHEW GT SCH (08:25)
[2018-09-01] MEDS: ERTAPENEM SODIUM 1,000 MG in SODIUM CHLORIDE 0.9% 50 ML IV SCH (12:09)
[2018-09-01 14:40] LABS: BUN Creatinine Ratio 58.8 (10-20); Blood Urea Nitrogen 16 mg/dl (7-18); Calcium 8.5 mg/dl (8.5-10.1); Carbon Dioxide 29 mmol/L (21-32); Chloride 94 mmol/L (98-107); Est GFR (African American) > 150.0; Est GFR (Non-African American) 145.3; Glucose 111 mg/dl (70-99); Potassium 3.7 mmol/L (3.5-5.1); Sodium 130 mmol/L (136-145)
[2018-09-01] MEDS: DIGOXIN 0.125 MG/2.5 ML UDP PEG SCH (16:28)
--- NOTE | 2018-09-01 18:42 | Hospitalist Progress Note ---
Date of Service September 01, 2018 Assessment & Plan (1) Empyema of left pleural space: Suffered from pneumonia on admission likely secondary to aspiration Remains afebrile leukocytosis resolved repeat CT chest ordered, noted continue Ertapenem IV Day 9 Discussed with thoracic surgery service Discussed with infectious disease service, no further antibiotics indicated after completion of 10-day course of ertapenem which will be tomorrow (2) Mucus plugging of bronchi: Status post bronchoscopy and suction He does not have significant cough reflex and cannot bring out excessive secretions will need periodic bronchoscopy as per chief financial officer Repeat bronchoscopy done -- respiratory status stable Anticipate transfer to group home facility tomorrow (3) Atrial fibrillation with rapid ventricular response: new onset atrial fibrillation with rapid ventricular response May be contributed by infection Reverted to sinus rhythm after being given Amiodarone Continue beta-kyaw to maintain direct and try to avoid amiodarone as per supervisor solder making No long-term anticoagulation --in sinus rhythm (4) Pneumonia involving left lung: Admitted with sepsis likely secondary to pneumonia Pneumonia involves the left middle and lower lobe s/p bronchoscopy no evidence of tracheal esophageal fistula Thoracic surgery has been consulted for possible aspiration and/or thoracic tube placement Status post left thoracotomy tube placement cultures: (+) Serratia, Strep, Bacteroides on Levaquin, transitioned to ertapenem per ID recommendation Repeat CT scan : IMPRESSION: 1. Unchanged position of the left pigtail catheter, presumably pleural. Lack of intravenous contrast limits delineation of the reported empyema. Allowing for this, no increased size or significant change in appearance. 2. Stable degree of consolidation and volume loss of the left lower lobe. 3. Significant increase peribronchovascular consolidation of the right lower lobe with new trace right pleural effusion. Extensive bronchial debris in the right lower lobe. This is concerning for aspiration or infection with a parapneumonic effusion. 4. Extensive bronchial debris in the left lower lobe. s/p repeat Bronchosopy for significant hemoptysis: no evidence of acute bleeding alteplase and heparin discontinued -- chest tube removed -- Ertapenem IV Day 02/02 (5) Acute blood loss anemia: significant hemoptysis 08/25/18 Hg dropped to 7 Received 2 units PRBC Hemoglobin is 9.4 on 08/30 (6) Biventricular heart failure: Has history of biventricular heart failure with an EF of around 20% No overt CHF at this time Restrict fluid to 1500 mL's a day Diuretics on hold (7) Sepsis: As above (8) Hyponatremia: Na 130 stable now (9) COPD exacerbation: continue Prednisone , Nebs Remains stable DVT prophylaxis Subcu heparin CODE STATUS DNR Subjective ff up empyema Seen resting in bed, comfortable, not in distress States he feels fine overall Denies shortness of breath, no bleeding per trach collar Chest pain No other symptoms Physical Exam Vital Signs (Past 24 Hours): Last Vital Signs Temp 36.8 C 09/01/18 15:55 Pulse 70 09/01/18 15:55 Resp 18 09/01/18 15:55 BP 104/68 09/01/18 15:55 Pulse Ox 93 09/01/18 15:55 Physical Exam: General- oriented x 3, not in distress, no accessory muscle use Eyes- anicteric Neck-neck collar in place No bleeding or discharge noted Lungs-mild rhonchi bilaterally, no wheezing Heart- normal rate, regular rhythm; no murmurs Abdomen- normal bowel sounds, nondistended, soft, nontender Extremities- no pretibial edema, no calf tenderness Neuro- alert, oriented x 3; no gross focal neurologic deficits Skin- warm & dry (1) Pneumonia involving left lung Lung location: lower lobe of lung Pneumonia type: due to unspecified organism Qualified Code(s): J18.1 - Lobar pneumonia, unspecified organism
--- NOTE | 2018-09-01 19:07 | Progress Note ---
DATE: 09/01/2018 Mr. Shirley was seen today. I think he actually looks better. I removed all of his dressings. His prior pigtail catheter site is clean. He still has rhonchi with some decreased breath sounds on the right. I believe this patient is improving. I would continue our tube feeding support and I would start physical therapy on him. Apparently, he is not only being discharged from the hospital and sent to a long-term, but he is also being released from long-term. He apparently will be going to a long-term in the [facility]. I would like to see him back if we can arrange that. He may well need something done about this empyema, but I would not do anything at this point.
[2018-09-02] MEDS: METOCLOPRAMIDE HCL 5 MG/5 ML UDP PEG SCH ×3 (01:03→11:31)
[2018-09-02] MEDS: GLYCOPYRROLATE 1 MG TAB PO SCH ×3 (01:03→13:45)
[2018-09-02] MEDS: ALBUT/IPRATROP 3MG/0.5MG NEB 3 ML VIAL INH SCH ×3 (04:58→11:08)
[2018-09-02] MEDS: FLUTICASONE/SALMETEROL (ADVAIR) 500/50 INH 14 PUFF INH SCH (09:35)
[2018-09-02] MEDS: MONTELUKAST SODIUM 10 MG TABLET GT SCH (09:36)
[2018-09-02] MEDS: ZINC SULFATE 220 MG CAPSULE GT SCH (09:36)
[2018-09-02] MEDS: METOPROLOL TARTRATE 50 MG TAB PO SCH (09:36)
[2018-09-02] MEDS: predniSONE 10 MG TABLET GT SCH (09:36)
[2018-09-02] MEDS: FAMOTIDINE 20 MG TAB JT SCH (09:38)
[2018-09-02] MEDS: POLYETHYLENE (MIRALAX) 17 GM PACK GT SCH (10:39)
--- NOTE | 2018-09-02 10:39 | Hospitalist Progress Note ---
Date of Service September 02, 2018 Assessment & Plan (1) Empyema of left pleural space: Suffered from pneumonia on admission likely secondary to aspiration Remains afebrile leukocytosis resolved repeat CT chest ordered, noted completed 10 days of Ertapenem IV Discussed with thoracic surgery service Discussed with infectious disease service, no further antibiotics indicated -- ff up with Pulmonary as outpatient closely (2) Mucus plugging of bronchi: Status post bronchoscopy and suction He does not have significant cough reflex and cannot bring out excessive secretions will need periodic bronchoscopy as per rigging man Repeat bronchoscopy done -- respiratory status stable continue daily trach care ff up with Pulmonary as outpatient closely (3) Atrial fibrillation with rapid ventricular response: new onset atrial fibrillation with rapid ventricular response May be contributed by infection Reverted to sinus rhythm after being given Amiodarone Continue beta-kyaw to maintain direct and try to avoid amiodarone as per beekeeper farmer No long-term anticoagulation --in sinus rhythm (4) Pneumonia involving left lung: Admitted with sepsis likely secondary to pneumonia Pneumonia involves the left middle and lower lobe s/p bronchoscopy no evidence of tracheal esophageal fistula Thoracic surgery has been consulted for possible aspiration and/or thoracic tube placement Status post left thoracotomy tube placement cultures: (+) Serratia, Strep, Bacteroides on Levaquin, transitioned to ertapenem per ID recommendation Repeat CT scan : IMPRESSION: 1. Unchanged position of the left pigtail catheter, presumably pleural. Lack of intravenous contrast limits delineation of the reported empyema. Allowing for this, no increased size or significant change in appearance. 2. Stable degree of consolidation and volume loss of the left lower lobe. 3. Significant increase peribronchovascular consolidation of the right lower lobe with new trace right pleural effusion. Extensive bronchial debris in the right lower lobe. This is concerning for aspiration or infection with a parapneumonic effusion. 4. Extensive bronchial debris in the left lower lobe. s/p repeat Bronchosopy for significant hemoptysis: no evidence of acute bleeding alteplase and heparin discontinued -- chest tube removed -- given Ertapenem IV x 10 days (5) Acute blood loss anemia: significant hemoptysis 08/25/18 Hg dropped to 7 Received 2 units PRBC Hemoglobin is 9.4 on 08/30 (6) Biventricular heart failure: Has history of biventricular heart failure with an EF of around 20% No overt CHF at this time Restrict fluid to 1500 mL's a day -- resume Lasix 40mg and Spironolactone 25mg but decreased to 3x/week , instead of daily monitor volume status and basic metabolic profile closely, titrate diuretics accordingly (7) Sepsis: As above (8) Hyponatremia: Na 130 stable now repeat basic metabolic panel in 2-3 days, the monitor regularly (9) COPD exacerbation: continue Prednisone taper , Nebs q4h Advair, Spiriva DVT prophylaxis Subcu heparin held for bleeding in the trach collar CODE STATUS DNR Disposition discharge to SNF ff up with Ref[employer] in 1-2 weeks Subjective ff up empyema resting in bed, comfortable, smiling in good spirits states he feels fine overall denies shortness of breath, chest pain no chills denies abdominal pain denies other symptoms states he is ready and would like to be discharged today Physical Exam Vital Signs (Past 24 Hours): Last Vital Signs Temp 36.8 C 09/02/18 07:00 Pulse 87 09/02/18 07:16 Resp 18 09/02/18 07:16 BP 99/61 L 09/02/18 07:00 Pulse Ox 96 09/02/18 07:16 Physical Exam: General- oriented x 3, not in distress, no accessory muscle use Eyes- anicteric Neck- no JVD trach collar: no bleeding, discharge Lungs- mild rhonchi at the bases, no wheezing Heart- normal rate, regular rhythm; no murmurs Abdomen- normal bowel sounds, nondistended, soft, nontender PEG tube: no discharge, no signs of infection Extremities- no pretibial edema, no calf tenderness Neuro- alert, oriented x 3; no gross focal neurologic deficits Skin- warm & dry Results & Data Laboratory Results noted and reviewed (1) Pneumonia involving left lung Lung location: lower lobe of lung Pneumonia type: due to unspecified organism Qualified Code(s): J18.1 - Lobar pneumonia, unspecified organism
[2018-09-02] MEDS: ERTAPENEM SODIUM 1,000 MG in SODIUM CHLORIDE 0.9% 50 ML IV SCH (10:41)
--- NOTE | 2018-09-02 11:26 | Discharge Summary ---
Date of Service September 02, 2018 Admission HPI Per Admitting Provider DATE OF ADMISSION: 08/12/2018 CHIEF COMPLAINT: Shortness of breath. HISTORY OF PRESENT ILLNESS: This is a 62-year-old male with past medical history significant for end-stage COPD; Biventricular heart failure, EF of 20%; hypertension; history of hepatitis B; cirrhosis; GERD; history of tobacco abuse. Presents with shortness of breath. The patient was recently in the hospital from 07/14/2018 to 08/06/2018 with respiratory failure requiring intubation and difficult to wean and ended up having tracheostomy and PEG tube placement and pulmonary stated he needs to be on long-term trach because he was very weak and he was not able to ambulate, and they discharged him back to assisted, currently at [facility]. He says with his trach, he is not able to talk and still weak and not able to talk. On PEG, still on tube feeds, Today he was having lot of cough with lot of phlegm and as his oxygen sats were going down, so he was brought into the ER. In the ER, he was having temp spikes with rapid AFib, blood pressure on the lower side. His white count on discharge was 9,000, today is 36,000. The lactic acid is okay at 0.9. Sodium is low at 126. Currently starting on amiodarone drip for his rapid AFib. The patient denies any chest pain. Denies any headaches, no nausea, no abdominal pain. Seems to be having normal bowel and bladder movements. He is not able to talk, he is writing on paper. He is not complaining of anything else. Admission Exam Per Admitting Provider ALLERGIES: No known drug allergies. PAST MEDICAL HISTORY: As mentioned above. FAMILY HISTORY: Significant for diabetes, heart disorder, and kidney disease. SOCIAL HISTORY: Currently coming from assisted. Smokes every day. No alcohol use. No substance abuse. REVIEW OF SYSTEMS: As per HPI, could not get complete review of systems as patient could not talk. MEDICATIONS: All the medications through feeding tube, aspirin 81 mg daily, famotidine 20 mg b.i.d., Advair Diskus one inhalation b.i.d., Lasix 4 mL daily, guaifenesin 400 mg t.i.d., DuoNebs every 4 hours, Xopenex HFA 2 inhalations t.i.d. p.r.n., metoprolol 50 mg p.o. b.i.d., Singulair 10 mg daily, Spiriva with inhaler 1 inhalation daily, spironolactone 25 mg p.o. daily, zinc sulfate 220 mg p.o. daily. PHYSICAL EXAMINATION: GENERAL: Patient is alert and awake, not in acute distress. VITAL SIGNS: Temperature 38.3, pulse 143, respiratory rate in 30s, blood pressure 94/53, oxygen 88% on trach collar 10 L, 50% FiO2. HEENT: No pallor, no icterus. Pupils equal, round, and reactive to light. Tracheostomy seen. Lot of mucus seen on the trach collar. CARDIOVASCULAR: S1, S2 heard. Tachycardia. Regular rhythm. No murmurs. RESPIRATORY SYSTEM: Normal AP diameter, mild tachypnea, mild occasional wheezing, no crackles. ABDOMEN: Soft, bowel sounds present, nontender. PEG tube seen. PEG tube site has no erythema, no drainage seen. CENTRAL NERVOUS SYSTEM: Alert and awake. Cannot talk because of trach. Obeys simple commands. Moves extremities. EXTREMITIES: No edema, no erythema seen. LABORATORIES: WBC 36, hemoglobin 10.6, hematocrit 28.2, platelets 255. PT 12.8, INR 1.3, PH 7.4, pCO2 of 49, pO2 of 54, bicarbonate 33, oxygen 86%. Sodium 126, potassium 3.8, chloride 86, bicarbonate 34, BUN 21, creatinine 0.5, serum glucose 110. Lactate 0.9, magnesium 1.6, total bilirubin 0.4, direct bilirubin 0.2, AST 35, ALT 62, alkaline phosphatase 119. Troponin I less than 0.015. BNP 1050. IMAGING DATA: Chest x-ray, left middle and lower lobe pneumonia. EKG: Rapid AFib at a rate of 146. Principal Diagnosis EMPYEMA, LEFT LUNG Discharge Exam Vital Signs (Past 24 Hours): Last Vital Signs Temp 36.8 C 09/02/18 07:00 Pulse 87 09/02/18 07:16 Resp 18 09/02/18 07:16 BP 99/61 L 09/02/18 07:00 Pulse Ox 96 09/02/18 07:16 Physical Exam: General- oriented x 3, not in distress, no accessory muscle use Eyes- anicteric Neck- no JVD trach collar: no bleeding, discharge Lungs- mild rhonchi at the bases, no wheezing Heart- normal rate, regular rhythm; no murmurs Abdomen- normal bowel sounds, nondistended, soft, nontender PEG tube: no discharge, no signs of infection Extremities- no pretibial edema, no calf tenderness Neuro- alert, oriented x 3; no gross focal neurologic deficits Skin- warm & dry Discharge Data Allergies Allergy/AdvReac Type Severity Reaction Status Date / Time No Known Allergies Allergy Unverified 07/14/18 08:44 Consultations 08/12/18 00:17 ED Decision to Admit Stat 08/12/18 03:20 Consult Case Management - Discharge Planning Routine Consult Wildlife Biology Technician Routine 08/12/18 07:00 Consult Wildlife Biology Technician Routine 08/12/18 08:00 Consult Cardiology Routine 08/17/18 15:15 Consult Thoracic Surgery Routine 08/22/18 12:16 Consult Infectious Diseases Routine Ordered Studies 08/17/18 13:46 CT chest wo con Urgent CT OF THE CHEST WITHOUT IV CONTRAST CLINICAL HISTORY: Evaluate for empyema. COMPARISON STUDY: Chest CT July 14, 2018. CT DOSE: 439.97 mGycm TECHNIQUE: Axial images of the chest were obtained without IV contrast. Images were reviewed in the axial, sagittal, and coronal planes. IV contrast was not administered for this examination. Automated exposure control was utilized for the study. A dose lowering technique was utilized adhering to the principles of ALARA. FINDINGS: Tracheostomy tube is in place. The size of the heart is normal. There is no pericardial effusion. There is moderate to severe coronary artery c alcification. There are extensive secretions within the left mainstem bronchus and the left lower lobe bronchi. Severe emphysema is noted. There is no pneumothorax. There is a large complex fluid and gas containing collection within the left pneumothorax which likely reflects pleural fluid likely within the major fissure. In addition, there is a smaller posterior left gas containing pleural effusion. There is a small mildly loculated right pleural effusion. Left lower lobe opacity reflects pneumonia. There is mild right lower lobe opacity. No enlarged thoracic lymph nodes are present. Bony thorax is unremarkable. Right upper lobe scarring is present. There are mild secretions within the right mainstem bronchus. IMPRESSION: 1. Large complex fluid and gas containing abnormality within the left hemithorax which favors a loculated pleural effusion within the major fissure. This may reflect an empyema. A pulmonary abscess could appear similar although is considered less likely. 2. Additional small loculated bilateral pleural effusions. 3. Left lower lobe opacity which favors pneumonia. Radiographic follow-up is recommended to ensure resolution. 4. Severe emphysema. 5. Extensive secretions within the airways. Electronically signed by: Patel Yee M.D. 08/17/2018 2:53 PM 08/18/18 08:24 CT abscess drainage Stat 08/18/18 11:36 CT guided needle placement Routine CT limited or localized study Routine 08/20/18 07:00 CT chest wo con Stat 08/24/18 07:30 CT chest wo con Routine 08/31/18 08:00 CT chest wo con Routine CT SCAN OF THE CHEST WITHOUT IV CONTRAST CLINICAL HISTORY: Status post chest tube removal. COMPARISON STUDY: Chest x-ray dated 08/28/2018. Chest CT scans dated 08/24/2018 and 12/28/2016. TECHNIQUE: CT scan of the thorax was performed from the thoracic inlet to the upper abdomen. Images are reviewed in the axial, sagittal, and coronal planes. IV contrast was not administered for this examination as per the referring clinician. Note that the examination is suboptimal without IV contrast. A dose lowering technique was utilized adhering to the principles of ALARA. The examination is degraded by motion artifact, as was by streak artifact from the arms which could not be elevated above the chest. CT DOSE: 198.15 mGycm FINDINGS: Thyroid: Imaged portions of the thyroid gland are normal in size and attenuation. Thoracic aorta: There is atherosclerotic calcification of the thoracic aorta, which is normal in caliber and demonstrates standard 3-vessel arch anatomy. Heart: The heart is normal in size and without pericardial effusion. The coronary arteries are densely calcified. Lungs and pleural spaces: A tracheostomy is in place. Advanced emphysematous change is noted. There are trace pleural effusions. Dense airspace consolidation is seen at the left lung base. Patchy airspace consolidation is seen at the right lung base. No pneumothorax is identified. Numerous foci of parenchymal scarring are seen bilaterally. Secretions fill the left lower lobe bronchus. The trachea and central airways are clear. Mediastinum: There are numerous subcentimeter mediastinal lymph nodes. Aracelis: Not well assessed without IV contrast. Axillae: There is no axillary lymphadenopathy. Upper abdomen: Partially visualized upper abdominal viscera is grossly unremarkable. Skeletal structures: The skeletal structures are osteopenic. No lytic or blastic bony lesions are seen. Soft tissues: The patient is cachectic. IMPRESSION: 1. There is dense airspace consolidation at the left lung base. 2. Patchy airspace consolidation is seen at the right lung base. 3. There are trace pleural effusions. 4. Advanced emphysema. 5. Secretions fill the left lower lobe airway. 6. Additional findings as above. Electronically signed by: Dwayne Mays M.D. 08/31/2018 5:14 PM Hospital Course (1) Empyema of left pleural space: Suffered from pneumonia on admission likely secondary to aspiration Developed pleural effusion which came out to be secondary to empyema History of recent respiratory failure, resulting to trach collar placement, and PEG tube placement Pulmonary and Thoracic Service Consulted-Dr. Whitmore Chest tube placed, abscess drained left lung August 18, 2018 Cultures grew Streptococcus intermedius and Bacteroides ID service consulted and recommended ertapenem times 10 days August 25, 2018 patient developed hemoptysis from the trach collar, laparoscopic bronchoscopy performed, no hemoptysis noted Chest tube was taken out on August 27, [address] chest performed August 31, [address] Mcghee: " I do not think this is parenchymal. I think this is all pleural; however, from that standpoint his white count is normal. He has been afebrile. His hemoglobin is coming up. He is quite ill, but at this point I would not propose doing anything more invasive. I would not drain this fluid in his chest. He is not a candidate for surgery. I do not want to put a chest tube in him at this point. We will follow along with him. If he forces our hand by an infectious presentation, then we will proceed with a drainage procedure of some type. However, he is not a candidate for a decortication. He may be a candidate for an Eloesser flap." Remains afebrile leukocytosis resolved completed 10 days of Ertapenem IV Discussed with thoracic surgery service Dr. Mcghee Discussed with infectious disease service, no further antibiotics indicated -- ff up with Pulmonary as outpatient closely; Dr. Mcghee will be be contacting patient for follow-up appointment --Continue daily trach collar care Continue enteral nutrition with impact, 65 cc/h continuously, free water flushes every 4 hours with 30 cc of free water, re-evaluate for residuals every 4 hours (2) Mucus plugging of bronchi: Status post bronchoscopy and suction He does not have significant cough reflex and cannot bring out excessive secreti ons May need need periodic bronchoscopy as per formula clerk -- respiratory status stable continue daily trach care ff up with Pulmonary as outpatient closely will need to establish with local data capture specialist (3) Atrial fibrillation with rapid ventricular response: new onset atrial fibrillation with rapid ventricular response May be contributed by infection Reverted to sinus rhythm after being given Amiodarone Continue beta-kyaw to maintain direct and try to avoid amiodarone as per senior market research analyst No long-term anticoagulation --in sinus rhythm Continue metoprolol, digoxin (4) Acute blood loss anemia: significant hemoptysis 08/25/18 Hg dropped to 7 Received 2 units PRBC Hemoglobin is 9.4 on 08/30 Monitor hemoglobin (5) Biventricular heart failure: Has history of biventricular heart failure with an EF of around 20% No overt CHF at this time Restrict fluid to 1500 mL's a day -- resume Lasix 40mg and Spironolactone 25mg but decreased to 3x/week , instead of daily monitor volume status and basic metabolic profile closely, titrate diuretics accordingly (6) Sepsis: Secondary to #1: Management per #1 (7) Hyponatremia: Na 130 stable now repeat basic metabolic panel in 2-3 days, the monitor regularly (8) COPD exacerbation: continue Prednisone taper , Nebs q4h Advair, Spiriva (9) S/P percutaneous endoscopic gastrostomy (PEG) tube placement: Management per #1 DVT prophylaxis Subcu heparin held for bleeding in the trach collar CODE STATUS DNR Disposition discharge to SNF Needs to follow-up with thoracic surgeon Dr. Kehinde Mcghee, he will be contacting patient for follow-up appointment Needs to follow-up closely with pulmonary service, needs to establish with farm machinery set up mechanic locally Total Time Total Time Spent Total Time Spent (In Minutes): 60 minutes Discharge Plan Discharge Items Patient Disposition: Transfer Nursing Home Fac Reason For Visit: SOB Discharge Diagnosis: EMPYEMA, LEFT LUNG; RESPIRATORY FAILURE Discharge Goals: Diagnostic testing and Therapeutic intervention Activity: As commented below Activity Comment: NEEDS ASSISTANCE Non-emergency contact: Primary Care Provider and Bridge Engineer Call non-emergency contact if: you have any medication questions, your symptoms worsen, your pain is not controlled, your pain is worsening, your pain is concerning for you, your wound has increased redness, your wound has increased drainage and your wound pain has increased Diet: Nothing by mouth Diet Comment: ENTERAL NUTRITION VIA PEG TUBE Addtl Provider Instructions: PRIMARY CARE PHYSICIAN FOLLOW UP PER [facility] FACILITY. FOLLOW UP WITH THORACIC SURGEON DR. MCGHEE IN 1-2 WEEKS. HIS OFFICE WILL BE CONTACTING PATIENT FOR APPOINTMENT. DR. MCGHEE'S OFFICE NO. [phone] PATIENT NEEDS TO BE ESTABLISHED WITH A LOCAL MANAGER BUDGET. HE NEEDS TO FOLLOW UP WITH A MANAGER BUDGET CLOSELY. PLEASE REFER TO ACCOMPANYING HOSPITAL DISCHARGE SUMMARY FOR FURTHER DETAILS. Prescriptions: New digoxin 50 mcg/mL Solution 125 mcg PEG DAILY@1600 30 Days Qty: 75 RF: 1 prednisone 10 mg Tablet 10 mg G-tube DAILY 8 Days Qty: 10 RF: 0 polyethylene glycol 3350 [Miralax] 17 gram Powder In Packet 17 g G-tube DAILY 30 Days Qty: 30 RF: 0 metoclopramide HCl 5 mg/5 mL Solution 5 mg PEG Q6 7 Days Qty: 140 RF: 1 Impact 1 Galo 0.06-1 gram-kcal/mL Liquid 1 ea PEG UD Qty: 6000 RF: 0 Continued ipratropium-albuterol 0.5 mg-3 mg(2.5 mg base)/3 mL solution for nebulization 3 ml INHALATION Q4 30 Days Qty: 180 RF: 1 famotidine 20 mg tablet 20 mg feeding tube BID 30 Days Qty: 60 RF: 0 fluticasone propion-salmeterol [Advair Diskus] 500-50 mcg/dose Blister With Device 1 inh INHALATION BID 30 Days Qty: 1 RF: 0 aspirin 81 mg Tablet,Chewable 81 mg Feeding Tube DAILY 30 Days Qty: 30 RF: 0 guaifenesin 400 mg Tablet 400 mg PO TID 30 Days Qty: 90 RF: 0 levalbuterol tartrate [Xopenex HFA] 45 mcg/actuation Hfa Aerosol Inhaler 2 inh INHALATION TID PRN (Reason: Shortness Of Breath Or Wheezing) 30 Days Qty: 15 RF: 0 zinc sulfate 220 (50) mg capsule 220 mg feeding tube DAILY 30 Days Qty: 30 RF: 0 montelukast [Singulair] 10 mg Tablet 10 mg feeding tube QAM 30 Days Qty: 30 RF: 0 Changed furosemide 10 mg/mL Solution 40 mg feeding tube 3XWK 30 Days Qty: 120 RF: 0 spironolactone [Aldactone] 25 mg Tablet 25 mg feeding tube 3XWK 30 Days Qty: 12 RF: 1 metoprolol tartrate 50 mg tablet 50 mg feeding tube BID 30 Days Qty: 60 RF: 1 Spiriva with HandiHaler 18 mcg Capsule, W/Inhalation Device 18 mcg INHALATION DAILY 30 Days Qty: 30 RF: 0 Discontinued levofloxacin 500 mg Tablet 500 mg feeding tube DAILY RF: 0 Stand-Alone Forms: [facility] Discharge Orders: Discharge Order (Routine); Ordered 09/02/18 Ordered By: Tomas Rivera Skilled Items Patient informed of condition?: Yes DNR: Yes Discharge Level of Care: Skilled Communicable Disease: No Discharge Prognosis: Improving Admission Data Admit Date/Time: 08/12/18 01:42 Attending Provider: Tomas Rivera Admit Provider: Da Vogt Primary Care Provider: Shayne SHARMA Other Providers: Arcadio Lima ; Grey Lara ; Roger Bowman ; Tomas Rivera ; Da Vogt ; Ant Monique ; Rodolfo Gillespie ; Isaac Neumann ; Todd Gomez ; CamilleRocco bañuelos ; Joo Brothers ; Daniela Bautista ; Mona Hicks ; Kehinde Mcghee ; Mattie Dhillon Service: Medical
[2018-09-02] MEDS: ASPIRIN 81 MG CHEW GT SCH (11:43)
--- NOTE | 2018-09-02 14:56 | Progress Note ---
DATE: 09/02/2018 Mr. Shirley was seen today. He is going to be discharged today. I discussed this with Dr. Rivera. He is going to be released from skilled nursing and sent to a penitentiary in the [place] area due to logistics that may be easier for him to follow up at [facility] or [place]; however, we will be glad to see him back and I am going to make an appointment to see him back in [address] scan. It is unclear to me whether anything will need to be done with this pleural effusion on the left. He certainly has no signs or symptoms of systemic disease at this point. It is also possible he could require drainage. He is not a candidate for surgery.
== END 2018-09-02 13:05 | DRG 853 ==
LOC: ED 22:50 → 1E 08-12 01:42 → SUATTDRO 08-12 01:42 → 1E 08-12 02:43 → 2E 08-14 11:44 → 2W 08-28 13:00